=== PATIENT | male | born 1950 | race Caucasian/White ===

== ENCOUNTER 2019-09-14 11:36 | Outpatient (CLI) | payer MEDICARE, SELFPAY ==
--- NOTE | ~2019-09-14 | XR_ITS ---
EXAMINATION: XR hand RT 2V INDICATION: Right hand pain, initial encounter TECHNIQUE: Two views of the right hand are obtained. COMPARISON: None available FINDINGS: There is an acute, traumatic tuft fracture of the third distal phalanx. Open fracture is no t excluded. Soft tissue swelling surrounds the fracture. No additional acute osseous findings are mely dent. 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 IMPRESSION: 1. Acute traumatic tuft fracture third distal phalanx, open fracture not excluded. Reviewed, dictated and finalized at location B. IMPRESSION: 1. Acute traumatic tuft fracture third distal phalanx, open fracture not exclud ed.
== END 2019-09-14 11:37 | disposition home or self-care (01) ==
LOC: ANHIMG 11:41
PROVIDERS: PCP Internal Medicine; Visit Provider Internal Medicine
DX: S62.632A Displaced fracture of distal phalanx of right middle finger, initial encounter for closed fracture (principal); X58.XXXA Exposure to other specified factors, initial encounter
CPT/HCPCS: 73120

== ENCOUNTER 2021-06-01 15:30 | Outpatient (CLI) | payer MEDICARE, SELFPAY ==
--- NOTE | ~2021-06-01 | CT_ITS ---
EXAMINATION: CT abdomen pelvis wo con DATE: 06/01/2021 15:54 INDICATION: Unspecified abdominal pain TECHNIQUE: Computed tomography (CT) of the abdomen and pelvis was performed without intravenous contr ast. The dose-length product (DLP) was 1260.44 mGy-cm. Automated exposure control and iterative recon struction technique were employed. COMPARISON: 12/05/2009 FINDINGS: Minimal dependent atelectasis is present in the lung bases. The heart size is normal. Punct ate calcifications in an otherwise normal spleen likely represent healed granulomatous disease. The l iver, pancreas, gallbladder, and adrenal glands are normal. The kidneys are unremarkable. There is a 3 mm stone in the urinary bladder. There is suggestion of mild left hydroureter. No pathologically en larged abdominal or pelvic lymph nodes are identified. There is no free intraperitoneal gas or eviden ce of bowel obstruction. Colonic diverticulosis is present without evidence of diverticulitis. There is severe lumbar spondylosis. There is a small fat-containing umbilical hernia. IMPRESSION: 1. 3 mm stone in the urinary bladder and possible mild left hydroureter. Findings could reflect recen t passage of a left-sided stone. Reviewed, dictated and finalized at location F. E PERSON IMPRESSION: 1. 3 mm stone in the urinary bladder and possible mild left hydroureter. Findin gs could reflect recent passage of a left-sided stone.
[2021-06-01 16:23] LABS: Basophils Percent Auto 0.4 % (0.2-1.2); Eosinophils Absolute Auto 0.1 K/mm3 (0-0.3); Eosinophils Percent Auto 0.8 % (0-4.4); Hematocrit 47.4 % (42.0-52.0); Hemoglobin 16.3 g/dL (14.0-18.0); Immature Granulocyte Absolute 0.04 K/mm3 (0.00-0.031); Immature Granulocyte Percent A 0.4 % (0-0.5); Lymphocytes Absolute Auto 1.92 K/mm3 (0.9-3.2); Lymphocytes Percent Auto 19.7 % (18.3-44.2); Mean Corpuscular HGB Conc 34.4 g/dl (32-36); Mean Corpuscular Hemoglobin 32.1 pg (26-34); Mean Corpuscular Volume 93.5 fl (80-100); Mean Platelet Volume 9.2 fl (7.4-10.4); Monocytes Percent Auto 9.8 % (2.6-8.5); Neutrophils Absolute Auto 6.7 K/mm3 (1.3-6.7); Neutrophils Percent Auto 68.9 % (45.5-73.1); Platelet Count Result 197 k/mm3 (150-375); Red Blood Count 5.07 M/mm3 (4.6-6.20); Red Cell Distribution Width 12.6 % (11.5-14.5); White Blood Count 9.8 K/mm3 (4.5-10.0)
[2021-06-01 16:33] LABS: Alanine Aminotransferase 26 U/L (4-50); Albumin Level 4.2 g/dL (3.5-5.1); Alkaline Phosphatase 63 U/L (38-126); Amylase 60 U/L (30-110); Anion Gap 7 mmol/L (8-16); Aspartate Amino Transferase 27 U/L (17-59); Bilirubin,Total 1.6 mg/dL (0.2-1.3); Blood Urea Nitrogen 19 mg/dL (9-20); Calcium 9.4 mg/dL (8.4-10.2); Carbon Dioxide 28 mmol/L (22-30); Chloride 103 mmol/L (98-107); Estimated Glomerular Filt Rate 46; Glucose 100 mg/dL (65-110); Lipase 106 U/L (23-300); Sodium 138 mmol/L (137-145)
[2021-06-01 16:38] LABS: Add Urine Microscopic? YES; Appearance Urine Clear (Clear); Bilirubin Urine Negative (Negative); Blood Urine 2+ (Negative); Color Urine Yellow (Yellow); Glucose Urine UA Negative (Negative); Ketones Urine Negative (Negative); Leukocyte Esterase Ur Negative LEU/UL (Negative); Mucus Urine Rare /lpf; Nitrate Urine Negative (Negative); Protein Urine Negative (Negative); RBC Urine 21-50 /hpf (0-2); Specific Grav Ur 1.013 (1.001-1.035); Urobilinogen Urine Negative mg/dL (<2.0); WBC Urine 0-3 /hpf
== END 2021-06-01 15:31 | disposition home or self-care (01) ==
LOC: ANHIMG 15:34
PROVIDERS: PCP Internal Medicine; Visit Provider Internal Medicine
DX: R10.9 Unspecified abdominal pain (principal); R03.0 Elevated blood-pressure reading, without diagnosis of hypertension; N21.0 Calculus in bladder
CPT/HCPCS: 36415; 74176; 80053; 81001; 82150; 83690; 85025; 87086

== ENCOUNTER 2021-07-29 13:35 | Outpatient (CLI) | payer MEDICARE, SELFPAY ==
[2021-07-29 14:18] LABS: Basophils Absolute Auto 0.1 K/mm3 (0.0-0.1); Basophils Percent Auto 0.7 % (0.2-1.2); Eosinophils Absolute Auto 0.1 K/mm3 (0-0.3); Eosinophils Percent Auto 1.4 % (0-4.4); Hematocrit 47.1 % (42.0-52.0); Hemoglobin 16.5 g/dL (14.0-18.0); Immature Granulocyte Absolute 0.02 K/mm3 (0.00-0.031); Immature Granulocyte Percent A 0.3 % (0-0.5); Lymphocytes Absolute Auto 1.95 K/mm3 (0.9-3.2); Lymphocytes Percent Auto 28.3 % (18.3-44.2); Mean Corpuscular Hemoglobin 32.4 pg (26-34); Mean Corpuscular Volume 92.4 fl (80-100); Mean Platelet Volume 9.8 fl (7.4-10.4); Monocytes Percent Auto 14.8 % (2.6-8.5); Neutrophils Absolute Auto 3.8 K/mm3 (1.3-6.7); Neutrophils Percent Auto 54.5 % (45.5-73.1); Platelet Count Result 208 k/mm3 (150-375); Red Cell Distribution Width 12.6 % (11.5-14.5); White Blood Count 6.9 K/mm3 (4.5-10.0)
[2021-07-29 14:32] LABS: Alanine Aminotransferase 27 U/L (4-50); Albumin Level 4.2 g/dL (3.5-5.1); Alkaline Phosphatase 68 U/L (38-126); Anion Gap 9 mmol/L (8-16); Aspartate Amino Transferase 34 U/L (17-59); Bilirubin,Total 1.4 mg/dL (0.2-1.3); Blood Urea Nitrogen 25 mg/dL (9-20); Calcium 8.7 mg/dL (8.4-10.2); Carbon Dioxide 26 mmol/L (22-30); Chloride 106 mmol/L (98-107); Estimated Glomerular Filt Rate 54; Glucose 125 mg/dL (65-110); Sodium 141 mmol/L (137-145)
[2021-07-29 15:55] LABS: Toxigenic C. Diff NEGATIVE (NEGATIVE)
== END 2021-07-29 13:36 | disposition home or self-care (01) ==
LOC: ANHLAB 13:37
PROVIDERS: PCP Internal Medicine; Visit Provider Internal Medicine
DX: R19.7 Diarrhea, unspecified (principal)
CPT/HCPCS: 36415; 80053; 85025; 87045; 87177; 87209; 87427; 87493; 89055

== ENCOUNTER 2021-09-03 00:22 | Day surgery (SDC) | payer MEDICARE, SELFPAY ==
[2021-08-20 14:38] VITALS: BMI 33.0
--- NOTE | 2021-09-03 08:57 | WPDGICN ---
Assessment and Plan Assessment and plan (1) Colon cancer screening: Code(s): Z12.11 - Encounter for screening for malignant neoplasm of colon Status: Acute Assessment and Plan: Patient presents today for screening colonoscopy. Has been 10 years since last exam. Patient appears to be at average risk for colon polyps. Further recommendations will be given after endoscopy. High-fiber diet is advised. GI Consult Note Consult date/time: 09/03/21 08:57 HPI: Oleg Tay is a 70 year old male Presents for screening colonoscopy. Patient states his weight appetite are normal. He has had some regular bowel movements since his in April. These have begun to improve with fiber in his diet and with passage of time. He denies any bleeding. He has had no weight loss. It has been 10 years since last screening colonoscopy presents today for neoplasia screening. Review of Systems Review of Systems: All systems reviewed & are unremarkable except as noted in HPI and below PMFSH Past Medical History Medical History Benign essential hypertension BMI 31.0-31.9,adult BMI 32.0-32.9,adult BMI 33.0-33.9,adult Cold sore Colon cancer screening Degenerative arthritis of knee, bilateral DJD (degenerative joint disease) Encounter for Medicare annual wellness exam Encounter for routine adult health examination without abnormal findings Finger injury GERD (gastroesophageal reflux disease) Hearing loss Insomnia Kidney stone Left flank pain Loose stools Non-healing skin lesion Pre-diabetes Psoriasis Skin tag Stricture of esophagus Vision changes Surgical History Surgical History Hx of arthroscopic knee surgery Hx of detached retina repair Family History Family History Father Family history of congestive heart failure Family history of cardiovascular disease Family history of heart disease in male family member before age 55 Social History Social History Smoking status: Never smoker Second hand tobacco smoke exposure: No Alcohol intake: current Alcohol use details: Occasional Living arrangements: with family Gender identity (if verbalized by the patient): Male Spiritual care concerns: No Meds Home Medications and Allergies Home Medications Medication Instructions Recorded Confirmed Type vitamin K2 40 mcg tablet 40 mcg PO DAILY 06/27/19 08/26/21 History semaglutide 0.5 mg SUBCUT WEEKLY #4.5 ml 03/16/21 08/26/21 Rx omeprazole 20 mg capsule,delayed 20 mg PO BID #270 cap 06/30/21 08/26/21 Rx release amlodipine-valsartan 1 tablet PO DAILY 08/20/21 08/26/21 History naproxen 500 mg PO BID PRN 08/20/21 08/26/21 History pravastatin 40 mg PO DAILY 08/20/21 08/26/21 History sildenafil 100 mg tablet See Rx Instructions .ROUTE 08/25/21 08/26/21 Rx .COMPLEX #18 tablet Allergies Allergy/AdvReac Type Severity Reaction Status Date / Time No Known Allergies Allergy Verified 08/24/21 15:11 Exam Narrative: Physical exam reveals patient to be alert. Vital signs stable. HEENT exam is unremarkable. Patient is anicteric. Lungs are clear to auscultation and percussion. Heart is without murmur or extra sounds. Abdominal exam bowel sounds are present soft nontender with no organomegaly. Digital external rectal exam is normal.
[2021-09-03 09:01] VITALS: BP 127/95; PULSE 89; RESP 20; TEMP 36.4; O2SAT 96
[2021-09-03] MEDS: LACTATED RINGERS 1,000 ML 150 ML IV CONT (09:17)
--- NOTE | 2021-09-03 09:30 | WPDANESEPPF ---
Anes - Initial Pre Proc Eval Procedure: Operation Date: 09/03/21 10:15 Proposed Procedures p Colonoscopy - Walker Rico MD Date/Time: 09/03/21 09:30 Surgeon: Walker Rico MD Pre Op Diagnosis: change in bowel habits, loose stools Patient Data Age: 70 Gender: M Height: 1.93 m Weight: 123 kg Last Vital Signs Temp 97.6 F 09/03/21 09:01 Pulse 89 09/03/21 09:01 Resp 20 09/03/21 09:01 BP 127/95 H 09/03/21 09:01 Pulse Ox 96 09/03/21 09:01 Allergies Allergy/AdvReac Type Severity Reaction Status Date / Time No Known Allergies Allergy Verified 08/24/21 15:11 Home Medications Medication Instructions Recorded Confirmed Type vitamin K2 40 mcg tablet 40 mcg PO DAILY 06/27/19 08/26/21 History semaglutide 0.5 mg SUBCUT WEEKLY #4.5 ml 03/16/21 08/26/21 Rx omeprazole 20 mg capsule,delayed 20 mg PO BID #270 cap 06/30/21 08/26/21 Rx release amlodipine-valsartan 1 tablet PO DAILY 08/20/21 08/26/21 History naproxen 500 mg PO BID PRN 08/20/21 08/26/21 History pravastatin 40 mg PO DAILY 08/20/21 08/26/21 History sildenafil 100 mg tablet See Rx Instructions .ROUTE 08/25/21 08/26/21 Rx .COMPLEX #18 tablet Patient hx anesthesia problems: none Family hx anesthesia problems: none Results Review: All pre-operative results and documents have been reviewed as part of the pre-operative evaluation. [facility] Past Medical History Medical History Benign essential hypertension BMI 31.0-31.9,adult BMI 32.0-32.9,adult BMI 33.0-33.9,adult Cold sore Colon cancer screening Degenerative arthritis of knee, bilateral DJD (degenerative joint disease) Encounter for Medicare annual wellness exam Encounter for routine adult health examination without abnormal findings Finger injury GERD (gastroesophageal reflux disease) Hearing loss Insomnia Kidney stone Left flank pain Loose stools Non-healing skin lesion Pre-diabetes Psoriasis Skin tag Stricture of esophagus Vision changes Surgical History Surgical History Hx of arthroscopic knee surgery Hx of detached retina repair Family History Family History Father Family history of congestive heart failure Family history of cardiovascular disease Family history of heart disease in male family member before age 55 Social History Social History Smoking status: Never smoker Second hand tobacco smoke exposure: No Alcohol intake: current Alcohol use details: Occasional Living arrangements: with family Gender identity (if verbalized by the patient): Male Spiritual care concerns: No Anes - Eval Final PreProcedure Day of Procedure 09/03/21 09:30 Patient weight: obese Heart: regular rate and rhythm Lungs: clear to auscultation Airway: Mallampati scale class II Neurological: alert and oriented Last oral intake: >/= 8 hours ASA classification: III Emergent: no Anesthetic plan: proceed Anesthesia type and monitoring: general GIVS and standard monitoring Results Review: All pre-operative results and documents have been reviewed as part of the pre-operative evaluation. Informed Consent: The patient's anesthetic plan and its attendant risks and benefits were discussed with the patient/family/POA. Questions were solicited and answers provided to the satisfaction of the patient/family/POA.
[2021-09-03 10:34] VITALS: BP 114/73; PULSE 78; RESP 18; O2SAT 92
[2021-09-03 10:44] VITALS: BP 106/72; PULSE 79; RESP 18; O2SAT 95
[2021-09-03 10:54] VITALS: BP 110/81; PULSE 81; RESP 22; O2SAT 95
== END 2021-09-03 11:24 | disposition home or self-care (01) ==
PROVIDERS: PCP Internal Medicine; Visit Provider Internal Medicine Gastroenterology
PROC: 0DJD8ZZ Inspection of Lower Intestinal Tract, Via Natural or Artificial Opening Endoscopic (ICD-10-PCS; CPT 45378; principal; 2021-09-03 10:15)
DX: Z12.11 Encounter for screening for malignant neoplasm of colon (principal); K64.8 Other hemorrhoids; K57.30 Diverticulosis of large intestine without perforation or abscess without bleeding; I10 Essential (primary) hypertension; K21.9 Gastro-esophageal reflux disease without esophagitis; R73.03 Prediabetes; L40.9 Psoriasis, unspecified; E66.9 Obesity, unspecified; Z68.33 Body mass index [BMI] 33.0-33.9, adult
CPT/HCPCS: G0121; J2704; J7120

== ENCOUNTER 2022-05-12 07:26 | Outpatient (CLI) | payer MEDICARE, SELFPAY ==
--- NOTE | ~2022-05-12 | XR_ITS ---
EXAMINATION: XR UGIAC w barium swallow DATE: 05/12/2022 08:11 INDICATION: Dysphagia. Unspecified acid reflux at night. TECHNIQUE: The patient drank thick barium, gas-producing crystals, and thin barium. A total of 1031 f luoroscopic images of the esophagus, stomach, and proximal small bowel were obtained. Fluoroscopy exp osure time was 2.1 minutes. COMPARISON: None. FINDINGS: The esophagus is normal without mass or stricture. Esophageal motility is normal. Very smal l sliding-type hiatal hernia with nonobstructing esophageal B ring at the gastroesophageal junction w hich lies approximately 3 cm above level of the diaphragm. There is also a transient esophageal a rin g at the cephalad margin of the esophageal vestibule. There was no gastroesophageal reflux with provo cative maneuvers. The stomach and proximal small bowel are normal. IMPRESSION: 1. Very small sliding-type hiatal hernia with no observed reflux with provocative maneuvers. Reviewed, dictated and finalized at location A. IC SPACE ATTENDANT IMPRESSION: 1. Very small sliding-type hiatal hernia with no observed reflux with provocati ve maneuvers.
== END 2022-05-12 07:27 | disposition home or self-care (01) ==
PROVIDERS: PCP Internal Medicine; Visit Provider Internal Medicine
DX: R13.10 Dysphagia, unspecified (principal); K21.9 Gastro-esophageal reflux disease without esophagitis; K44.9 Diaphragmatic hernia without obstruction or gangrene
CPT/HCPCS: 74246

== ENCOUNTER 2022-07-19 08:01 | Outpatient (CLI) | payer MEDICARE, SELFPAY ==
--- NOTE | 2022-07-19 08:49 | ECG_ITS ---
Measurements Intervals [place] Rate: 73 P: 9 WA: 170 QRS: -38 QRSD: 106 T: 43 QT: 399 QTc: 440 Interpretive Statements SINUS RHYTHM WITH OCCASIONAL VENTRICULAR PREMATURE COMPLEXES LEFT ANTERIOR HEMIBLOCK NONSPECIFIC T-WAVE ABNORMALITY ABNORMAL ECG NO PREVIOUS ECG AVAILABLE FOR COMPARISON Electronically Signed On 07-19-2022 12:12:35 LOG BUNCHER by Cody Choudhary M.D.
[2022-07-19 10:07] LABS: Basophils Absolute Auto 0.1 K/mm3 (0.0-0.1); Basophils Percent Auto 0.8 % (0.2-1.2); Eosinophils Absolute Auto 0.3 K/mm3 (0-0.3); Eosinophils Percent Auto 4.2 % (0-4.4); Hemoglobin 15.8 g/dL (14.0-18.0); Immature Granulocyte Absolute 0.02 K/mm3 (0.00-0.031); Immature Granulocyte Percent A 0.3 % (0-0.5); Lymphocytes Absolute Auto 2.12 K/mm3 (0.9-3.2); Lymphocytes Percent Auto 34.5 % (18.3-44.2); Mean Corpuscular HGB Conc 34.3 g/dl (32-36); Mean Corpuscular Hemoglobin 31.7 pg (26-34); Mean Corpuscular Volume 92.4 fl (80-100); Mean Platelet Volume 10.5 fl (7.4-10.4); Monocytes Absolute Auto 0.8 K/mm3 (0.1-0.6); Monocytes Percent Auto 12.2 % (2.6-8.5); Platelet Count Result 182 k/mm3 (150-375); Red Blood Count 4.98 M/mm3 (4.6-6.20); Red Cell Distribution Width 13.3 % (11.5-14.5); White Blood Count 6.2 K/mm3 (4.5-10.0)
[2022-07-19 10:14] LABS: Albumin Level 4.4 g/dL (3.5-5.1)
[2022-07-19 10:18] LABS: Anion Gap 5 mmol/L (8-16); Blood Urea Nitrogen 22 mg/dL (9-20); Calcium 8.6 mg/dL (8.4-10.2); Carbon Dioxide 29 mmol/L (22-30); Chloride 102 mmol/L (98-107); Estimated Glomerular Filt Rate 54; Glucose 100 mg/dL (65-110); Hemoglobin A1C 5.5 % (<5.7); Potassium 3.9 mmol/L (3.4-5.0); Sodium 136 mmol/L (137-145); Urine Cotinine NEGATIVE
== END 2022-07-19 08:02 | disposition home or self-care (01) ==
LOC: ANHSURGERY 08:06
PROVIDERS: Anesthesiology; PCP Internal Medicine; Visit Provider Orthopaedic Surgery
DX: Z01.812 Encounter for preprocedural laboratory examination (principal); Z01.810 Encounter for preprocedural cardiovascular examination; M17.0 Bilateral primary osteoarthritis of knee; E11.9 Type 2 diabetes mellitus without complications; I44.4 Left anterior fascicular block
CPT/HCPCS: 80048; 80307; 82040; 83036; 85025; 87081; 93005

== ENCOUNTER 2022-08-02 00:42 | Day surgery (SDC) | payer MEDICARE, SELFPAY ==
--- NOTE | 2022-07-19 07:34 | PC.NURSE ---
PRE-OP INSTRUCTIONS, PLEASE READ CAREFULLY Report to the Outpatient Waiting Room, entrance under the green pavilion located off [facility], at time _0600_ on date _08/02/22_. Planned Procedure Time: _0730_. PACK A SMALL OVERNIGHT BAG AND LEAVE IN THE CAR ALONG WITH YOUR WALKER Time changes happen often and if your time is changed the preop area will call you the afternoon before. - You and your visitor will be asked to self-screen and do not enter if you have any COVID symptoms. - Only one visitor is requested with a max of two and NO children visitors are allowed at this time. - The patient visitor may be requested to leave or wait in car when not with patient due to distancing restrictions. - A mask is optional within the hospital at this time. -VISITING HOURS 8AM-8PM Patients may have clear liquids (water, carbonated beverages, clear teas, apple juice) until 3 hours prior to surgery (0430 AM) with a maximum of 20 ounces. - No food from midnight until time of surgery Take the following medications with a SIP of water the morning of surgery: _NONE_ DO NOT STOP ANY OF YOUR OTHER PRESCRIPTION MEDICATIONS PRIOR TO SURGERY ?EXCEPT THE FOLLOWING Medications to discontinue __NAPROXEN PER DR. GONZALEZ'S INSTRUCTIONS__ Medications to discontinue per ANESTHESIA -_TUMERIC 3 DAYS PRIOR TO SURGERY, Date to take last dose 07/29/22_ Please no deodorant, or body powder the day of surgery. No jewelry (including any body piercings) or valuables the day of surgery, leave them at home. Please take a shower or bath the night before, or the morning of, surgery with an antibacterial soap. Wear comfortable, loose fitting clothing. - Jewelry must be removed prior to entering the operating room. Rings and piercings that are not removed may be cut off. - The hospital will not accept responsibility for valuables. - Please leave all valuables, including medications, at home the day of surgery. If you are going home after surgery, a licensed farm truck driver must drive you home. - NO public transportation without another adult if you receive anesthesia. - We recommend that an adult stay with you for 24 hours following discharge. - We also recommend that you do not drive, make important decision, drink alcoholic beverages, or take any drugs that were not prescribed by your health care provider for at least 24 hours after your discharge time. Follow any additional instructions given to you from your surgeon. If you or anyone in your household have experienced Covid symptoms in the past week, please notify your surgeon or the nurse liaison at the phone number below for possible testing. Instructions given to _PATIENT_and asked if any additional questions and then verbalized understanding. Patient advised to call surgeon office or pre surgery nurse liaison [phone] if any additional questions.
[2022-07-19 08:26] VITALS: BP 130/88; PULSE 72; RESP 20; TEMP 36.4; O2SAT 94; BMI 32.3
[2022-08-02] VITALS (17 sets, daily range): BP systolic 120–144; BP diastolic 69–92; PULSE 71–99; RESP 12–20; TEMP 36.1–36.6; O2SAT 90–98
--- NOTE | ~2022-08-02 | XR_ITS ---
EXAMINATION: XR_[id number]_CR DATE: 08/02/2022 10:33 INDICATION: Total left knee arthroplasty. Postop. TECHNIQUE: 2 views of left knee were obtained. COMPARISON: Left knee radiograph 11/11/2021 FINDINGS: There is a total left knee arthroplasty with patellar resurfacing in near-anatomic alignmen t. No fracture. There is gas in the knee joint and soft tissues, consistent with recent surgery. IMPRESSION: 1. Total left knee arthroplasty in near-anatomic alignment. Reviewed, dictated and finalized at location [facility]. [facility]
[2022-08-02] MEDS: ACETAMINOPHEN 500 MG TABLET 1000 MG PO (06:33)
[2022-08-02] MEDS: LACTATED RINGERS 1,000 ML 30 ML IV CONT ×2 (06:50→10:07)
[2022-08-02 06:51] LABS: Glucose Point of Care 115 mg/dl (65-105)
[2022-08-02] MEDS: TRANEXAMIC ACID 1,000MG/ISO100 1,000 MG/100 ML BAG 200 MG IVPB (06:54)
--- NOTE | 2022-08-02 07:14 | WPDHPUPDATE1 ---
History and Physical Update Update Date/Time: 08/02/22 07:14 History and Physical has been reviewed, including an updated exam of the patient. There are NO changes in the patient's condition. Risks, benefits, and alternatives have been discussed and questions answered. Patient agrees to proceed with procedure, left total knee arthroplasty and right knee injection..
--- NOTE | 2022-08-02 07:22 | WPDANESEPPF ---
Anes - Initial Pre Proc Eval Procedure: Operation Date: 08/02/22 07:30 Proposed Procedures p Left Total Knee Arthroplasty, Cortisone Injection Right Knee - Nelson Eisenberg MD Date/Time: 08/02/22 07:22 Surgeon: Nelson Eisenberg MD Pre Op Diagnosis: oa bilateral knees Patient Data Age: 71 Gender: M Height: 1.93 m Weight: 122.7 kg Last Vital Signs Temp 36.3 C L 08/02/22 06:58 Pulse 84 08/02/22 06:58 Resp 18 08/02/22 06:58 BP 142/92 H 08/02/22 06:58 Pulse Ox 94 08/02/22 06:58 O2 Del Method Room Air 08/02/22 06:58 Allergies Allergy/AdvReac Type Severity Reaction Status Date / Time No Known Allergies Allergy Verified 08/02/22 06:30 Home Medications Medication Instructions Recorded Confirmed Type tumeric 100 mg-julia 150 mg-olive 1 cap PO DAILY 12/24/21 08/02/22 History 50 mg-oreg 150 mg-caprylate capsule amlodipine 10 mg-valsartan 160 mg See Rx Instructions .Route 03/08/22 08/02/22 Rx tablet .COMPLEX #90 tabs pravastatin 40 mg tablet See Rx Instructions .Route 03/08/22 08/02/22 Rx .COMPLEX #90 tabs omeprazole 40 mg capsule,delayed 40 mg PO BID #180 caps 04/16/22 08/02/22 Rx release naproxen 500 mg tablet See Rx Instructions .Route 06/14/22 08/02/22 Rx .COMPLEX #60 tabs zolpidem 10 mg tablet 10 mg PO QHS #30 tabs 07/12/22 08/02/22 Rx semaglutide 0.25 mg or 0.5 mg (2 See Rx Instructions .Route 07/19/22 08/02/22 Rx mg/1.5 mL) subcutaneous pen .COMPLEX #4.5 mL injector (Ozempic) rivaroxaban 10 mg tablet (Xarelto) 10 mg PO DAILY PE prophylaxis s/p 07/27/22 07/27/22 Rx joint replacement surgery 14 days #14 tabs Laboratory Tests 08/02/22 06:48 POC Capillary Glucose 115 mg/dl H mg/dl (65-105) Patient hx anesthesia problems: none Family hx anesthesia problems: none Results Review: All pre-operative results and documents have been reviewed as part of the pre-operative evaluation. [facility] Past Medical History Medical History Benign essential hypertension Bilateral hand numbness BMI 31.0-31.9,adult BMI 32.0-32.9,adult BMI 33.0-33.9,adult Cold sore Colon cancer screening DJD (degenerative joint disease) VALLE (dyspnea on exertion) Encounter for Medicare annual wellness exam Finger injury Gastroenteritis GERD (gastroesophageal reflux disease) Hearing loss Insomnia Kidney stone Left flank pain Loose stools Non-healing skin lesion Personal history of COVID-19 Pre-diabetes Psoriasis Skin tag Stricture of esophagus Vision changes Surgical History Surgical History Hx of arthroscopic knee surgery Hx of detached retina repair Family History Family History Father Family history of congestive heart failure Family history of cardiovascular disease Family history of heart disease in male family member before age 55 Social History Social History Smoking status: Never smoker Second hand tobacco smoke exposure: No Additional smoking assessment comments: PT DENIES ALL FORMS OF TOBACCO USE Alcohol intake: current Alcohol use details: STATES 2-4 BEERS/WEEK Substance use: never Lack of Transportation: No Lack of Food: Never True Current Housing: I Have Housing Concerned About Future Housing: No Difficulty Paying Gas/Electric Bills: No Difficulty Paying for Meds: No Currently Unemployed: No Education: Bachelor's Degree Difficulty w/ Childcare or Family Care: No Living arrangements: alone Occupation/Education: retired Gender identity (if verbalized by the patient): Male Spiritual care concerns: No Anes - Eval Final PreProcedure Day of Procedure 08/02/22 07:22 Patient weight: obese Heart: regular rate and rhythm Lungs: clear to auscultation Airway: Mallampati s
[2022-08-02] MEDS: ceFAZolin 3 GM/D5W 100 ML 100 ML IVPB (07:38)
--- NOTE | 2022-08-02 07:38 | WPDANESPNB ---
Anes - Peripheral Nerve Block Date/Time: 08/02/22 07:38 I have discussed with the patient/family/POA the placement of a peripheral nerve block for post-operative pain management, including associated risks, benefits, complications, and side effects. Alternative methods of post-operative analgesia were detailed. Questions were solicited and answers provided to the satisfaction of the patient/family/POA. Time-Out: A pre-procedural Time-Out was completed immediately before starting the procedure and confirmed: Patient Identification, Site, Procedure, Patient Position and the Availability of Requisite Equipment. Clinical Indications: Acute post-operative pain management requested by the operative surgeon. Nerve Block Insertion Note Anes-nerve block: adductor canal left Patient position: supine Skin prep: chlorhexidine Needle: 22 gauge, stimulating, insulated echogenic needle. Needle length: 80 mm Technique: ultrasound Technique comment: mid 2mg fent 100mcg Injectate: bupivacaine 0.5% with epi 5 mcg/ml (30ml no epi) and dexamethasone (mg) (4) Observations: tolerated well Complications: none Procedure start time:: 725 Procedure end time:: 732
[2022-08-02] MEDS: TRIAMCINOLONE ACET INJ SUSP 50 MG/5 ML VIAL 20 MG XX (08:21)
[2022-08-02] MEDS: ceFAZolin SODIUM 1 GM VIAL IV PUSH (09:25)
--- NOTE | 2022-08-02 09:57 | W.PM.PROC2 ---
Procedure Note - Detailed Date of Procedure 08/02/22 Pre-op Diagnosis oa bilateral knees Post-op Diagnosis Same Procedure Performed 1. left total knee replacement 2. Right knee injection Surgeon Nelson Eisenberg MD [employer]iliate Marketing Specialist Max Torres Anesthesia General Description of Procedure The patient was identified and proper site identified. In the preop holding area the anesthesia team performed a left-sided sub sartorial block after which the patient was taken to the operating room and transferred to the OR table positioning supine taking care to pad the torso and extremities. After general anesthetic induction and intubation a nonsterile tourniquet was placed high on the left thigh. Prior to prepping the right knee was injected with 2 milliliters of 1% lidocaine and 20 milligrams of Kenalog without incident. Band-Aid was applied. The left lower extremity was prepped and draped in the usual sterile fashion. The extremity was exsanguinated and with the knee flexed tourniquet was inflated to Three hundred mmHg remaining up for approximately 70 minutes. An anterior midline incision was made and a mid vastus approach was used. Infra and suprapatellar fat pads were excised. Patella was resected leaving 15 mm thickness and prepared for the size 34 round three peg component. Using the intramedullary guide the distal femur was cut in the proper orientation for the size 75 femoral component. Using the extramedullary guide the tibia was cut perpendicular to the long axis protecting collateral ligaments and popliteal structures. It was sized to a 83. Flexion and extension gaps were balanced. Trial reduction was undertaken and the weight-bearing line was noted to passed through the center of the joint. Proximal tibia was drilled and punched in the proper orientation for the real component. Trial components were removed. The bone surfaces were washed with pulsatile lavage and dried. The real components were cemented simultaneously. The knee was held in extension and the patella held clamped until the cement had cured. Excess cement was removed from the joint. After trialing it was determined that the 12 mm insert gave full range of motion from 0-120 degrees of flexion and the patella tracked in the femoral groove with no lift-off. After final lavage the joint the real 12 E poly insert was placed and secured with a locking bar. A Betadine and saline wash was placed into the wound and allowed to sit for approximately 3 minutes and then evacuated. Periarticular tissues were infiltrated with 60 cc of the arthroplasty solution. Surgicel powder was applied into the wound during the closure. The extensor mechanism was repaired with #2 Vicryl suture and 0 looped PDS suture. Subcu was reapproximated with 3-0 Monocryl and 2-0 Stratafix with tissue adhesive for the skin. A sterile dressing was applied. He tolerated the procedure well, was awakened and extubated, transferred to the bed and was taken to recovery area in stable condition. There were no known intraoperative complications. Perioperative antibiotics were administered. Estimated Blood Loss 150 Tourniquet Time 70 Drains No Packing No Pathology None sent Complications No immediate complications Condition Stable Disposition PACU [facility] Billing Surgery - Charge Forward: Surgery Billing (03904 - L TKA; 78440 - R knee injection)
[2022-08-02 10:37] LABS: Glucose Point of Care 154 mg/dl (65-105)
[2022-08-02] MEDS: fentaNYL CITRATE INJ (*CRX) 100 MCG/2 ML VIAL 25 MCG IV PUSH ×4 (10:48→11:36)
--- NOTE | 2022-08-02 10:57 | SUR.PHASEI ---
1055: Simple mask removed.
[2022-08-02] MEDS: oxyCODONE/ACETAMINOPHEN (*CRX) 5-325 MG TABLET 1 TABLET PO ×3 (12:25→20:21)
[2022-08-02] MEDS: SODIUM CHLORIDE 0.9% IV 1,000 ML 125 ML IV CONT (12:26)
--- NOTE | 2022-08-02 15:14 | PM.IMCN ---
Assessment and Plan Assessment and plan (1) Status post right knee replacement: Code(s): Z96.651 - Presence of right artificial knee joint Status: Acute Assessment and Plan: POD 0 Ortho to manage post op care DVT per ortho Xareto Cefazolin given post op Pain medications on board Anti-emetics on board PT/OT Weight bearing status Full weight bearing (2) Primary osteoarthritis of both knees: Code(s): M17.0 - Bilateral primary osteoarthritis of knee Status: Chronic Assessment and Plan: Been getting injections Currently left knee replacements Right knee injection POD 0 PT/OT (3) Benign essential hypertension: Code(s): I10 - Essential (primary) hypertension Status: Acute Assessment and Plan: Current BP is 144/84 Continue home medications Trend BP Adjust therapy as indicated (4) Pre-diabetes: Code(s): R73.03 - Prediabetes Status: Acute Assessment and Plan: A1c 5.5 Glucose stable Accu-Checks AC/HS ISS Trend glucose Adjust therapy as indicated Plan Thank you for including us on this case please call with any questions 63 minutes HPI Data of Consult Consult date: 08/02/22 Requesting Physician: Nelson Eisenberg MD Primary Care Provider: Anshul Mason MD Consult Narrative Reason for consult: Medical management Narrative: Oleg Tay is a 71 year old male with a past medical history of hypertension, GERD, osteoarthritis who is a direct admit for status post bilateral knee replacements by Dr. Eisenberg. He did get injections and was participation in activity to help with the pain, and did not get any relief. Currently patient is POD 0 and is in the room resting comfortable. He denies any chest pain, shortness of breath, nausea, vomiting, diarrhea, constipation. He did state his pain is a 5-6/10. He denies any other complaints at the time being. He is currently on 2LNC. He did state that he felt just beat and tired, and wanted to get into bed. He did also state that he was able to walk to the bathroom and around the room without any problems. Hospitalist have been consulted for medical management PMFSH Past Medical History Medical History Benign essential hypertension Bilateral hand numbness BMI 31.0-31.9,adult BMI 32.0-32.9,adult BMI 33.0-33.9,adult Cold sore Colon cancer screening DJD (degenerative joint disease) VALLE (dyspnea on exertion) Encounter for Medicare annual wellness exam Finger injury Gastroenteritis GERD (gastroesophageal reflux disease) Hearing loss Insomnia Kidney stone Left flank pain Loose stools Non-healing skin lesion Personal history of COVID-19 Pre-diabetes Psoriasis Skin tag Stricture of esophagus Vision changes Surgical History Surgical History Hx of arthroscopic knee surgery Hx of detached retina repair Family History Family History Father Family history of congestive heart failure Family history of cardiovascular disease Family history of heart disease in male family member before age 55 Social History Social History Social History: patient currently lives by himself. He elects his friend Mindy to be his surrogate. He wishes to be a full code at this time. Smoking status: Never smoker Second hand tobacco smoke exposure: No Alcohol intake: current Drinks per week: 2 Alcohol use details: STATES 2-4 BEERS/WEEK Substance use: never Lack of Transportation: No Lack of Food: Never True Current Housing: I Have Housing Concerned About Future Housing: No Difficulty Paying Gas/Electric Bills: No Difficulty Paying for Meds: No Currently Unemployed: No
[2022-08-02] MEDS: ceFAZolin 2 GM/D5W 50 ML 2 GM/50 ML BAG IVPB (16:41)
[2022-08-02] MEDS: CELECOXIB 200 MG CAPSULE PO (16:48)
[2022-08-02] MEDS: SENNA/DOCUSATE SODIUM TABLET 2 TAB PO (16:48)
[2022-08-02] MEDS: PANTOPRAZOLE 40 MG TABLET PO (20:21)
[2022-08-02] MEDS: ZOLPIDEM TARTRATE (*CRX) 5 MG TABLET 10 MG PO (20:21)
[2022-08-03] MEDS: oxyCODONE/ACETAMINOPHEN (*CRX) 5-325 MG TABLET 1 TABLET PO ×3 (00:15→09:45)
[2022-08-03] MEDS: ceFAZolin 2 GM/D5W 50 ML 2 GM/50 ML BAG IVPB ×2 (00:15→10:33)
[2022-08-03 02:46] VITALS: BP 143/75; PULSE 82; RESP 20; TEMP 36.6; O2SAT 92
[2022-08-03 05:56] LABS: Basophils Percent Auto 0.1 % (0.2-1.2); Hematocrit 40.3 % (42.0-52.0); Hemoglobin 13.5 g/dL (14.0-18.0); Immature Granulocyte Absolute 0.08 K/mm3 (0.00-0.031); Immature Granulocyte Percent A 0.5 % (0-0.5); Lymphocytes Absolute Auto 1.32 K/mm3 (0.9-3.2); Lymphocytes Percent Auto 8.5 % (18.3-44.2); Mean Corpuscular HGB Conc 33.5 g/dl (32-36); Mean Corpuscular Hemoglobin 30.9 pg (26-34); Mean Corpuscular Volume 92.2 fl (80-100); Mean Platelet Volume 9.6 fl (7.4-10.4); Monocytes Absolute Auto 1.4 K/mm3 (0.1-0.6); Monocytes Percent Auto 8.8 % (2.6-8.5); Neutrophils Absolute Auto 12.8 K/mm3 (1.3-6.7); Neutrophils Percent Auto 82.1 % (45.5-73.1); Platelet Count Result 200 k/mm3 (150-375); Red Blood Count 4.37 M/mm3 (4.6-6.20); Red Cell Distribution Width 13.4 % (11.5-14.5); White Blood Count 15.6 K/mm3 (4.5-10.0)
[2022-08-03 06:05] LABS: Anion Gap 5 mmol/L (8-16); Blood Urea Nitrogen 21 mg/dL (9-20); Calcium 8.6 mg/dL (8.4-10.2); Carbon Dioxide 27 mmol/L (22-30); Chloride 101 mmol/L (98-107); Estimated CRCL calculation 76 ml/min; Estimated Glomerular Filt Rate > 60; Glucose 116 mg/dL (65-110); Sodium 133 mmol/L (137-145)
--- NOTE | 2022-08-03 07:47 | PM.DS ---
DS: Admitting Diagnosis Discharge Date 08/03/2022 Admitting Diagnosis Left knee osteoarthritis DS: Discharge Diagnosis Discharge Diagnosis (1) Status post total left knee replacement: Code(s): Z96.652 - Presence of left artificial knee joint Status: Acute Plan 71-year-old male postop day 1 after left total knee replacement. Overall doing very well during exam this morning. Pain is well controlled. Postoperative wound care and medications were reviewed in detail. He had no further questions. Plan to see him in 2 weeks for wound check. He did state that he will stay with his girlfriend for 1 week for help with care. He will start outpatient therapy after that. DS: Summary Hospital Course Reason for hospitalization: Observation after outpatient procedure Hospital Course: 71-year-old male admitted for observation after left total knee replacement. Overall uneventful overnight stay. Surgical dressing is clean and dry. He is able to ambulate and work well with physical therapy. Postoperative discharge instructions were discussed with him in detail. He will plan on seeing therapy again prior to discharge. Status at Discharge Functional status at discharge: uses cane/walker Overall status at discharge: patient is progressing back to baseline Time Spent with Patient Time attestation: Total time spent providing and/or coordinating discharge services: Time spent: Less than 30 minutes Exam Const: General: comfortable; No no acute distress Eyes: General: appearance normal, both eyes and all related structures Resp: Effort & Inspection: normal respiratory effort GI: Inspection: non-distended Skin: General skin exam: normal color and no erythema Other: Surgical incision at left knee shows a clean and dry dressing. Neuro: Sensory Exam: normal sensation Extrem: Other: Exam of the left knee demonstrates active range of motion to near full extension. No numbness or tingling down the leg. Calves negative. Neurovascular status left lower extremity is intact. Psych: Mental Status: mental status grossly normal Radiology Reports: Comments: EXAMINATION: [id number]_[id number]_CR DATE: 08/02/2022 10:33 INDICATION: Total left knee arthroplasty. Postop. TECHNIQUE: 2 views of left knee were obtained. COMPARISON: Left knee radiograph 11/11/2021 FINDINGS: There is a total left knee arthroplasty with patellar resurfacing in near-anatomic alignment. No fracture. There is gas in the knee joint and soft tissues, consistent with recent surgery. IMPRESSION: 1. Total left knee arthroplasty in near-anatomic alignment. DS: Data Data Completed and Pending Labs on day of discharge: Labs from last 24 hours 08/03/22 08/03/22 08/02/22 05:33 05:33 10:34 WBC 15.6 H RBC 4.37 L Hgb 13.5 L Hct 40.3 L MCV 92.2 MCH 30.9 MCHC 33.5 RDW 13.4 Plt Count 200 MPV 9.6 Immature Gran % (Auto) 0.5 Neut % (Auto) 82.1 H Lymph % (Auto) 8.5 L [place] % (Auto) 8.8 H Eos % (Auto) 0.0 Baso % (Auto) 0.1 L Lymph # (Auto) 1.32 [place] # (Auto) 1.4 H Eos # (Auto) 0.0 Baso # (Auto) 0.0 Abs Immat Gran (auto) 0.08 H Absolute Neuts (auto) 12.8 H Absolute Nucleated RBC 0.0 Nucleated RBC % 0.0 Sodium 133 L Potassium 4.0 Chloride 101 Carbon Dioxide 27 Anion Gap 5 L BUN 21 H Creatinine 1.10 Estim Creat Clear Calc 76 Estimated GFR > 60 Glucose 116 H POC Capillary Glucose 154 H Calcium 8.6 Antibody Screen 08/02/22 06:28 WBC RBC Hgb Hct MCV MCH MCHC RDW Plt Count MPV Immature Gran % (Auto) Neut % (Auto) Lymph % (Auto) [place] % (Auto) Eos % (Auto) Baso % (Auto) Lymph # (Auto) [place] # (Auto) Eos # (Auto) Baso # (Auto) Abs Immat Gran (auto) Absolute Neuts (auto) Absolute Nucleated RBC Nucleated RBC % Sodium Potassium Chloride Carbon Dioxide Anion Gap BUN Creatinine Estim Creat C
--- NOTE | 2022-08-03 07:54 | P.PNAN_ITS ---
Anes - Prog Note Post-Op Date/Time: 08/03/22 07:54 Cardiovascular status: normal Respiratory status: normal Airway patency: baseline Mental status: baseline Post-Op hydration status: normal Vital Signs: Last Vital Signs Temp 97.9 F 08/03/22 02:46 Pulse 82 08/03/22 02:46 Resp 20 08/03/22 02:46 BP 143/75 H 08/03/22 02:46 Pulse Ox 92 08/03/22 02:46 O2 Del Method Nasal Cannula 08/02/22 20:00 O2 Flow Rate 1 08/02/22 20:00 Pain Score (VAS): 0/10 I/O: Intake & Output 08/02/22 08/02/22 08/03/22 15:59 23:59 07:59 Intake Total 350 290 440 Balance 350 290 440 Laboratory Tests 08/03/22 05:33 08/03/22 05:33 08/02/22 08/02/22 08/03/22 06:28 10:34 05:33 WBC 15.6 H RBC 4.37 L Hgb 13.5 L Hct 40.3 L MCV 92.2 MCH 30.9 MCHC 33.5 RDW 13.4 Plt Count 200 MPV 9.6 Immature Gran % (Auto) 0.5 Neut % (Auto) 82.1 H Lymph % (Auto) 8.5 L [place] % (Auto) 8.8 H Eos % (Auto) 0.0 Baso % (Auto) 0.1 L Lymph # (Auto) 1.32 [place] # (Auto) 1.4 H Eos # (Auto) 0.0 Baso # (Auto) 0.0 Abs Immat Gran (auto) 0.08 H Absolute Neuts (auto) 12.8 H Absolute Nucleated RBC 0.0 Nucleated RBC % 0.0 Sodium Potassium Chloride Carbon Dioxide Anion Gap BUN Creatinine Estim Creat Clear Calc Estimated GFR Glucose POC Capillary Glucose 154 H Calcium Antibody Screen Negative 08/03/22 05:33 WBC RBC Hgb Hct MCV MCH MCHC RDW Plt Count MPV Immature Gran % (Auto) Neut % (Auto) Lymph % (Auto) [place] % (Auto) Eos % (Auto) Baso % (Auto) Lymph # (Auto) [place]pie # (Auto) Eos # (Auto) Baso # (Auto) Abs Immat Gran (auto) Absolute Neuts (auto) Absolute Nucleated RBC Nucleated RBC % Sodium 133 L Potassium 4.0 Chloride 101 Carbon Dioxide 27 Anion Gap 5 L BUN 21 H Creatinine 1.10 Estim Creat Clear Calc 76 Estimated GFR > 60 Glucose 116 H POC Capillary Glucose Calcium 8.6 Antibody Screen Post-procedural complaints: none Patient Feedback: Patient satisfied with anesthetic care.
[2022-08-03] MEDS: CELECOXIB 200 MG CAPSULE PO (09:41)
[2022-08-03] MEDS: amLODIPine BESYLATE 5 MG TABLET 10 MG BY MOUTH (09:41)
[2022-08-03] MEDS: SENNA/DOCUSATE SODIUM TABLET 2 TAB PO (09:42)
[2022-08-03] MEDS: PANTOPRAZOLE 40 MG TABLET PO (09:43)
[2022-08-03] MEDS: RIVAROXABAN 10 MG TABLET PO (09:44)
[2022-08-03] MEDS: PRAVASTATIN SODIUM 20 MG TABLET 40 MG PO (09:45)
[2022-08-03] MEDS: VALSARTAN 160 MG TABLET PO (09:45)
[2022-08-03] MEDS: polyethylene glycoL 3350 17 GM POWD.PACK PO (09:46)
[2022-08-03 09:50] VITALS: O2SAT 94
[2022-08-03 11:20] VITALS: BP 150/87; PULSE 76; RESP 20; TEMP 36.9; O2SAT 89
--- NOTE | 2022-08-03 11:30 | PM.IMPN ---
Progress Note: A&P Assessment and Plan (1) Status post total left knee replacement: Code(s): Z96.652 - Presence of left artificial knee joint Status: Acute Assessment and Plan: POD 1 Ortho to manage post op care DVT per ortho Xareto Cefazolin given post op, completed Pain medications on board Anti-emetics on board PT/OT Weight bearing status Full weight bearing (2) Primary osteoarthritis of both knees: Code(s): M17.0 - Bilateral primary osteoarthritis of knee Status: Chronic Assessment and Plan: Been getting injections Currently left knee replacements Right knee injection POD 1 PT/OT (3) Benign essential hypertension: Code(s): I10 - Essential (primary) hypertension Status: Acute Assessment and Plan: Current BP is 143/75 Continue home medications Trend BP Adjust therapy as indicated (4) Pre-diabetes: Code(s): R73.03 - Prediabetes Status: Acute Assessment and Plan: Glucose is stable at 116 A1c 5.5 Glucose stable Accu-Checks AC/HS ISS Trend glucose Adjust therapy as indicated Time Spent With Patient Time: 51 minutes Time with patient: Greater than 35 minutes Subjective Date/time seen: 08/03/22 11:30 Interval history: 08/03/22 1130 Patient is doing well today. Patient did state that he does have a little bit of pain especially when he does the exercises. He currently denies any chest pain, shortness a breath, nausea, vomiting diarrhea. He did state the is a bowel movement for the last couple of days. He was on oxygen however has been titrated off current saturations are in the high 90s. Currently patient is doing well and can be discharged from medical standpoint. 08/02/22 1035 Oleg Tay is a 71 year old male with a past medical history of hypertension, GERD, osteoarthritis who is a direct admit for status post bilateral knee replacements by Dr. Eisenberg.? He did get injections and was participation in activity to help with the pain, and did not get any relief.? Currently patient is POD 0 and is in the room resting comfortable.? He denies any chest pain, shortness of breath, nausea, vomiting, diarrhea, constipation.? He did state his pain is a 5-6/10.? He denies any other complaints at the time being.? He is currently on 2LNC.? He did state that he felt just beat and tired, and wanted to get into bed.? He did also state that he was able to walk to the bathroom and around the room without any problems. Review of Systems Review of Systems: All systems reviewed & are unremarkable except as noted in HPI and below Exam Narrative: General: well-nourished, well-appearing 75-year-old female, sitting up in bed, comfortable, NARD Neuro: awake, alert and oriented x4, speech clear, no focal neuro deficits noted HEENMT: normocephalic, atraumatic, EOMI, sclerae anicteric, moist oral mucosa Respiratory: Clear to auscultation bilaterally without crackles, rhonchi or wheezes, nonlabored breathing Cardio: regular rate, regular rhythm with S1-S2 Abdomen: nondistended, normoactive bowel sounds, soft, nontender to palpation Extremities: no edema, erythema, or tenderness to palpation, DP pulses 2+ bilaterally, left knee has ice pack on, some swelling Skin: no rashes or lesions, warm and dry Psych: appropriate mood and affect, judgment and insight intact Objective Data Vital Signs Vital Signs: Vital Signs - 24 hr 08/02/22 10:07 08/02/22 10:20 08/02/22 10:35 Temperature 97.4 F L Pulse Rate 85 71 83 Respiratory Rate 12 16 14 Blood Pressure 131/71 121/74 134/89 Pulse Oximetry 93 96 97 Oxygen Delivery Simple Face Mask Simple Face Mask Simple Face Mask Oxygen Flow Rate 10 10 10 08/02/22 10:50 08/02/22 11:05 08/02/22 11:20 Temperature Pulse Rate 74 77 76 Respiratory Rate 12 15 13 Blood Pressure 137/80 126/69 124/71 Pulse Oximetry 98 98 96 Oxyg
[2022-08-03 13:33] VITALS: O2SAT 94
== END 2022-08-03 13:37 | disposition home or self-care (01) ==
LOC: ANHSURGERY 09:51 → ANH2MED 11:50
PROVIDERS: PCP Internal Medicine; Visit Provider Orthopaedic Surgery
PROC: (CPT 27447; principal; 2022-08-02 07:30)
DX: M17.0 Bilateral primary osteoarthritis of knee (principal); G89.18 Other acute postprocedural pain; I10 Essential (primary) hypertension; K21.9 Gastro-esophageal reflux disease without esophagitis; R73.03 Prediabetes; E66.9 Obesity, unspecified; Z68.32 Body mass index [BMI] 32.0-32.9, adult; Z79.01 Long term (current) use of anticoagulants; Z79.899 Other long term (current) drug therapy
CPT/HCPCS: 27447; 20610; 64447; 36415; 73560; 80048; 80307; 82040; 82948; 83036; 85025; 86850; 86900; 86901; 87081; 93005; 97110; 97116; 97161; 97165; 97530; 97535; A9270; C1713; C1776; J0171; J0330; J0690; J1100; J1170; J2250; J2270; J2405; J2704; J2710; J2795; J3010; J3301; J7030; J7120

== ENCOUNTER 2022-09-01 10:30 | Outpatient (CLI) | payer MEDICARE, SELFPAY ==
--- NOTE | ~2022-09-01 | XR_ITS ---
Clinical Indication: Cough PA and lateral views of the chest: Comparison: None Findings: The lungs are clear, without evidence of focal consolidation or pleural effusion. Cardiome diastinal silhouette is within normal limits. Bones and soft tissues are unremarkable. Impression: Normal chest. Reviewed, dictated and finalized at location . Impression: Normal chest.
== END 2022-09-01 10:31 | disposition home or self-care (01) ==
PROVIDERS: PCP Internal Medicine; Visit Provider Internal Medicine
DX: R05.9 Cough, unspecified (principal); R09.89 Other specified symptoms and signs involving the circulatory and respiratory systems
CPT/HCPCS: 71046

== ENCOUNTER 2022-10-14 15:00 | Outpatient (RCR) | payer MEDICARE, SELFPAY ==
--- NOTE | 2022-08-18 12:10 | PTOPEVAL1 ---
Assessment and note entered by Juliann Corbett, PT Evaluation Information Assessment Status Evaluation Diagnosis L TKR Onset 08-02-22 Subjective Information since surgery have completed [facility] few days ago; getting around in his home OK, is able to get upstairs to bed room without any problems; using wheeled walker; have a cane at home; Reported Pain Level Pain Score Self Report L knee Additional Pain Score Comments pain range in past few days, 0-4/10; low numbness anterior knee; increase with bending knee; decrease ice, rest, elevation, tylenol and aspirin for pain; with sleeping awaken about 1 & 1/2 hr; (normal sleep 3-4 hr at time) Assessment PT Clinical Summary Rubin is s/p L TKR on 08-02-22. He has had [facility] PT services and is WBAT on L LE. He reports discomfort with sleeping and bending his knee. Did not voice any concerns about his mobility at home, asking about using the cane--reinforced protocol of 4 weeks walker use before starting the cane. Prior to surgery, he was active, lives alone. With the evaluation, he has decreased strength and ROM of L Knee: (-8') to 90'; using the wheeled walker with good gait sequence- limp on L and decreased knee flexion with swing through. there is edema over knee and residual bruising over calf and thigh. Skilled PT services are indicated for modalities to decrease pain and edema over L knee, therapeutic exercises to increase knee ROM and strength and education for progression of HEP, gait retraining and balance, for return to active lifestyle. Plan of Care Interventions Gait Training,Hot Pack/Cold Pack,Intermittent Compression,Manual Therapy,Neuro Re-education, Patient/Caregiver Education,Therapeutic Activities, Therapeutic Exercise,Other Other Interventions taping PT Services Indicated Yes Treatment Frequency and 2x/wk for 5 weeks Duration These treatments will address the objective and functional deficits as defined above. The patient will be advanced safely and appropriately in order for the patient to progress towards his/her prior level of function. Additional exercises will be introduced and as well as a comprehensive home exercise program upon discharge, if needed, ?to ensure carryover of functional gains achieved in the clinic.
--- NOTE | 2022-09-22 14:28 | PTOPPROG ---
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 Compared to the initial evaluation, he has improved with: 2 minute walking test distance to 520'; 5 reps sit/stand time by 8 sec; mat strengthening exercises; single leg standing is 3 seconds; gait without device, alternating step pattern, is performing steps with alternating step pattern; reported sleeping tolerance. ROM L knee: sitting knee extension (-12') and flexion 110', with stretch to 115'; standing L knee extension is (-15'); His pain rating is the same at 0-4/10 and circumferential knee measurements are within 1 cm. The goals were partially met. Continue PT to increase knee extension ROM and knee strength in standing. Plan of Care Interventions Hot Pack/Cold Pack,Manual Therapy,Neuro Re- education,Patient/Caregiver Education,Therapeutic Activities,Therapeutic Exercise,Ultrasound,Other Other Interventions taping PT Services Indicated Yes Treatment Frequency and 2x/wk x 3 weeks Duration These treatments will address the objective and functional deficits as defined above. The patient will be advanced safely and appropriately in order for the patient to progress towards his/her prior level of function. Additional exercises will be introduced and as well as a comprehensive home exercise program upon discharge, if needed, ?to ensure carryover of functional gains achieved in the clinic. This treatment plan has been reviewed and agreement upon by the patient.
--- NOTE | 2022-10-14 15:30 | PTOPDC ---
Assessment and note entered by Juliann Corbett, PT Evaluation Information Assessment Status Discharge Diagnosis L TKR Onset 08-02-22 Subjective Information Rubin reports: is able to stand and walk without pain; only thing cannot do is kneel; Reported Pain Level Pain Score Self Report Additional Pain Score Comments pain range in the past week 0-2/10 L knee; pain increase with bending knee and kneeling; is sleeping OK; taking tylenol and arthritis tylenol; is using ice occassionally; Assessment PT Clinical Summary Rubin has received 16 PT sessions. Compared to the last reevaluation, he has improved with: less pain at worst range from 4 to 2/10; 5 reps sit/stand time was 2 seconds faster; strength of L LE with single leg standing; He continues to have edema over knee, with circumferential measurement 1-2 cm more; His sitting active ROM of L knee is (-5') to 115' He is indep with his home exercise program and it has been emphasized to continue with stretching extension ROM. The goals were achieved, except knee extension to 0'; Discharge PT services. Plan of Care PT Services Indicated No
== END 2022-10-15 09:07 | disposition home or self-care (01) ==
LOC: ANHPT 15:00
PROVIDERS: PCP Internal Medicine; Visit Provider Orthopaedic Surgery
DX: Z47.1 Aftercare following joint replacement surgery (principal); Z96.652 Presence of left artificial knee joint
CPT/HCPCS: 97110; 97112; 97140; 97161; 97530

== ENCOUNTER 2022-11-04 07:30 | Outpatient (CLI) | payer MEDICARE, SELFPAY ==
--- NOTE | ~2022-11-04 | CT_ITS ---
Clinical Indication: Dyspnea CT Angiogram of the Chest with Contrast: Technique: Contiguous sections were acquired throughout the chest after intravenous administration of 100 cc of Omnipaque 350. Coronal maximum intensity projection 3-D reconstructions were created on [facility] workstation by the technologist. Dose reduction technique was used on this scan by utilizing autom ated exposure control and iterative reconstruction technique. The dose-length product (DLP) was 848.5 9 mGy-cm. Findings: There is no evidence of any significant mediastinal, hilar or axillary lymphadenopathy. There is no f illing defect in the pulmonary arterial tree to suggest pulmonary embolus. There is no aortic aneurys m. Mild coronary artery calcifications are present. There is no evidence of pleural or pericardial effusion. There is minimal bibasilar atelectatic change versus possibly subpleural reticulation. Images through the upper abdomen reveal no abnormalities. Impression: No evidence of pulmonary embolus, aortic dissection, or aortic aneurysm. Probable minimal bibasilar atelectatic change, less likely minimal chronic interstitial disease. Reviewed, dictated and finalized at location . Impression: No evidence of pulmonary embolus, aortic dissection, or aortic aneurysm. Probable minimal bibasilar atelectatic change, less likely minimal chronic inte rstitial disease.
[2022-11-04 08:35] LABS: Estimated Glomerular Filt Rate 50
== END 2022-11-04 07:31 | disposition home or self-care (01) ==
LOC: ANHIMG 07:32
PROVIDERS: PCP Internal Medicine; Visit Provider Internal Medicine
DX: R06.09 Other forms of dyspnea (principal); R06.02 Shortness of breath; R53.83 Other fatigue
CPT/HCPCS: 71275; Q9967

== ENCOUNTER 2022-12-09 07:27 | Outpatient (CLI) | payer MEDICARE, SELFPAY ==
--- NOTE | ~2022-12-09 | NM_ITS ---
EXAMINATION: NM nathaniel stress w perfusion DATE: 12/09/2022 11:31 INDICATION: Shortness of breath TECHNIQUE: Rest images were obtained following intravenous administration of 10.4 mCi Tc99m tetrofosm in (Myoview). The patient was infused intravenously with Lexiscan (Regadenoson). Then, 33.6 mCi Tc99m tetrofosmin (Myoview) was administered intravenously, and stress images were obtained. Data was manny nstructed into short axis and horizontal and vertical long axis SPECT images. Gated SPECT images were also obtained. COMPARISON: None. FINDINGS: There is no definite reversible or fixed perfusion abnormality to suggest ischemia or infar ction. There is normal left ventricular chamber size, wall motion and ejection fraction. Left ventr icular ejection fraction measures 53%. IMPRESSION: 1. Normal myocardial perfusion at rest and during stress. 2. Left ventricular ejection fraction measuring 53%. Reviewed, dictated and finalized at location L.
--- NOTE | 2022-12-09 07:44 | ECHO_ITS ---
Patient Info Name: Oleg Tay Age: 72 years : 1950 Gender: Male Ht: 76 in Wt: 260 lbs BSA: 2.54 m2 HR: 80 bpm BP: 131 / 89 mmHg Technical Quality: Fair Exam Date: 12/09/2022 7:54 AM Exam Location: [facility] Patient Status: Outpatient Admit Date: 12/09/2022 Staff Ordering Physician: Anshul Mason MD Bologna Maker: Jessica Mackey RDCS Attending Provider: Anshul Mason MD Referring Physician: Marlon DAMON; Exam Type: CA echo doppler color flow Study Info Indications Z82.49 - Family history of ischemic heart disease and other diseases of the circulatory system Complete two-dimensional, color flow and Doppler transthoracic echocardiogram is performed. Summary 1. Complete two-dimensional, color flow and Doppler transthoracic echocardiogram is performed. 2. Left ventricular chamber dimension is normal. 3. Left ventricular systolic function is normal, estimated at 65-70%. 4. The left ventricular diastolic function is grade I diastolic dysfunction. 5. E/e' 8 is minimally elevated. 6. Global longitudinal strain is abnormal at -14.7%. 7. Left atrial chamber dimension is severely enlarged. 8. Right atrial chamber dimension is mildly enlarged. 9. There is mild aortic valve sclerosis. 10. No pulmonary hypertension, estimated pulmonary arterial systolic pressure is 34 mmHg. Left Ventricle E/e' 8 is minimally elevated. Global longitudinal strain is abnormal at -14.7%. Left ventricular chamber dimension is normal. Left ventricular systolic function is normal, estimated at 65-70%. The left ventricular diastolic function is grade I diastolic dysfunction. Right Ventricle Right ventricular systolic function is normal and with normal TAPSE 2.0 cm. Right ventricular chamber dimension is normal. Left Atria Left atrial chamber dimension is severely enlarged. Right Atria Right atrial chamber dimension is mildly enlarged. Aortic Valve The aortic valve is trileaflet. There is mild aortic valve sclerosis. There is no aortic valve stenosis. There is no aortic valve regurgitation. Pulmonic Valve There is no pulmonic regurgitation. Mitral Valve There is no mitral valve stenosis. There is no mitral valve regurgitation. Tricuspid Valve There is no tricuspid valve regurgitation. No pulmonary hypertension, estimated pulmonary arterial systolic pressure is 34 mmHg. Pericardium/Pleural There is no pericardial effusion. Inferior Vena Cava Normal inferior vena cava with >50% collapse upon inspiration consistent with normal right atrial pressure, 5 mmHg. Aorta The aortic root size at the sinus of Valsalva is normal. Left Ventricular Outflow Tract Name Value Normal LVOT 2D LVOT Diameter 2.1 cm LVOT Doppler LVOT Peak Gradient 4 mmHg LVOT Mean Gradient 3 mmHg LVOT VTI 25 cm LVOT VTI/AV VTI Ratio 0.8 LVOT Stroke Volume 91 ml LVOT CO 6.4 l/min LVOT CI 2.5 l/min/m2 Pulmonic Valve Name
--- NOTE | 2022-12-09 08:25 | EST_ITS ---
Patient Info Name: Oleg Tay Age: 72 years : 1950 Gender: Male Ht: 76 in Wt: 260 lbs BSA: 2.54 m2 HR: 70 bpm BP: 140 / 104 mmHg Heart Rhythm: Sinus Rhythm Exam Date: 12/09/2022 9:13 AM Exam Location: [facility] Stress Patient Status: Outpatient Admit Date: 12/09/2022 Staff Ordering Physician: Anshul Mason MD Attending Provider: Anshul Mason MD Exercise Technologist: Shoshana Basurto CT Exercise Physician: Celso Grady DO Exam Type: CA stress nathaniel w NM Study Info Indications R06.09 - Other forms of dyspnea A regadenoson stress test was performed. Summary 1. 1. Negative lexiscan stress test for ischemic ST changes by ECG criteria. 2. 2. Baseline hypertension. 3. 3. Nuclear scan to follow and will be reported separately. Please correlate with it. 4. 4. Patient informed of the above results. Protocol: Lexiscan Stress ECG Details Stage: REST Duration (min): 3 min : 6 sec HR (bpm): 72 SBP (mmHg): 140 DBP (mmHg): 104 Stage: REST Duration (min): 9 min : 39 sec HR (bpm): 69 SBP (mmHg): 140 DBP (mmHg): 104 Stage: STAGE 1 Duration (min): 1 min : 0 sec HR (bpm): 78 SBP (mmHg): 145 DBP (mmHg): 103 Stage: RECOVERY Duration (min): 1 min : 0 sec HR (bpm): 89 SBP (mmHg): 145 DBP (mmHg): 103 Stage: RECOVERY Duration (min): 2 min : 0 sec HR (bpm): 84 SBP (mmHg): 145 DBP (mmHg): 103 Stage: RECOVERY Duration (min): 3 min : 0 sec HR (bpm): 79 SBP (mmHg): 139 DBP (mmHg): 99 Stage: RECOVERY Duration (min): 3 min : 58 sec HR (bpm): 77 SBP (mmHg): 139 DBP (mmHg): 99 Rest HR: 69 bpm Peak HR: 89 bpm Rest Sys BP: 140 mmHg Peak Sys BP: 145 mmHg Max Pred HR: 146 bpm % Max Pred HR: 61 % Target HR: 124 bpm Max RPP: 12,905 bpm*mmHg Termination Reason: Completed protocol Cardiac Symptoms: Shortness of breath Total Time: 1 min : 0 sec Rest Agarwal BP: 104 mmHg Peak Agarwal BP: 103 mmHg Total Dose: 0.4 mg Resting ECG Sinus rhythm. Stress ECG No ST changes. Arrhythmias None. Report Signatures
--- NOTE | 2022-12-09 13:19 | WPDPFTINT ---
PFT Procedure Performed PFT Procedure Performed Spirometry with Pre/Post Bronchodilator Plethysmography (Lung Vol) Diffusing Cap (DLCO) Flow Vol Loop PFT Interpretation This is a pulmonary function test with pre and post-bronchodilator spirometry, plethysmography and diffusing capacity. The test was performed and results interpreted in accordance with the 2019 and 2005 ATS/ERS Task Force guidelines respectively using the Global Lung Function Initiative-2012 reference equations. Patient demonstrated good effort and cooperation. Reproducibility criteria were met. The quality of the pre bronchodilator spirometry maneuver was Grade A and post bronchodilator spirometry maneuver was Grade A. Findings: Spirometry: The contour the inspiratory and expiratory flow tracing are normal. The pre bronchodilator FVC is 5.26 L, 105% predicted. The pre bronchodilator FEV1 is 3.69 L, 100% predicted. The pre bronchodilator FEV1: FVC ratio 70%. The post bronchodilator FVC is 5.51 L, representing a 5% decrease. The post bronchodilator FEV1 is 3.79 L, representing a 3% increase. The post bronchodilator FEV1: FVC ratio 69%. Plethysmography: The total lung capacity is 8.59 L, 104% predicted. The functional residual capacity is 4.53 L, 101% predicted. The residual volume is 3.07 L, 107% predicted. Diffusion capacity: The diffusing capacity unadjusted for hemoglobin and carboxyhemoglobin is 20.0, 72% predicted. The diffusing capacity adjusted for alveolar volume a 2.77, 80% predicted. Impression: The spirometry is normal without evidence of an obstructive abnormality. There is no significant improvement after inhaling a single dose of albuterol. The lung volumes are normal. The diffusing capacity is normal. There are no prior studies for comparison
== END 2022-12-09 07:28 | disposition home or self-care (01) ==
PROVIDERS: PCP Internal Medicine; Visit Provider Internal Medicine
DX: R06.02 Shortness of breath (principal); R06.09 Other forms of dyspnea; R53.83 Other fatigue; Z82.49 Family history of ischemic heart disease and other diseases of the circulatory system; I10 Essential (primary) hypertension
CPT/HCPCS: 78452; 93017; 93306; 94060; 94726; 94729; A9502; J2785

== ENCOUNTER 2022-12-22 13:39 | Outpatient (CLI) | payer MEDICARE, SELFPAY ==
--- NOTE | ~2022-12-22 | US_ITS ---
EXAMINATION: US renal BI DATE: 12/22/2022 14:37 INDICATION: R79.89 - Other specified abnormal findings of blood chemi... TECHNIQUE: Multiple grayscale and Doppler ultrasound images of the kidneys were obtained. COMPARISON: CT abdomen pelvis 06/01/21. FINDINGS: The right kidney measures 11.0 x 5.8 x 6.5 cm. The left kidney measures 14.4 x 5.3 x 6.7 cm. The kidn eys demonstrate normal parenchymal echogenicity. Duplicated collecting system on the left (better see n in the prior CT). There is no hydronephrosis. The bladder wall is thickened to 4 mm. IMPRESSION: Duplicated collecting system on the left. Cystitis versus bladder wall thickening from outlet compromise. Reviewed, dictated and finalized at location K.
== END 2022-12-22 13:40 | disposition home or self-care (01) ==
PROVIDERS: PCP Internal Medicine; Visit Provider Internal Medicine
DX: R79.89 Other specified abnormal findings of blood chemistry (principal); Q63.0 Accessory kidney
CPT/HCPCS: 76775

== ENCOUNTER 2023-01-31 09:12 | Outpatient (CLI) | payer MEDICARE, SELFPAY ==
--- NOTE | ~2023-01-31 | XR_ITS ---
EXAMINATION: XR barium swallow DATE: 01/31/2023 10:12 INDICATION: Gastroesophageal reflux disease with esophagitis TECHNIQUE: The patient drank thick barium, gas-producing crystals, and thin barium. Fluoroscopic spot radiographs of the hypopharynx and esophagus were obtained. Fluoroscopy exposure time was 2.0 minut es. A total of 1239 fluoroscopic images were recorded. COMPARISON: None. FINDINGS: The pharynx is symmetric and without evidence of mass lesion or mucosal irregularity. The e sophagus is normal without mass or stricture. Esophageal motility is normal. Small sliding-type hiata l hernia with gastroesophageal junction 5 cm above level of the diaphragm. Gastroesophageal reflux wa s observed with provocative maneuvers with moderate amount of contrast extending cephalad to the leve l of the thoracic inlet. IMPRESSION: 1. Small sliding-type hiatal hernia with gastroesophageal reflux. Reviewed, dictated and finalized at location A.
== END 2023-01-31 09:13 | disposition home or self-care (01) ==
PROVIDERS: PCP Internal Medicine; Visit Provider Internal Medicine
DX: K21.9 Gastro-esophageal reflux disease without esophagitis (principal); R13.10 Dysphagia, unspecified; K44.9 Diaphragmatic hernia without obstruction or gangrene
CPT/HCPCS: 74220

== ENCOUNTER 2024-02-01 00:39 | Day surgery (SDC) | payer MEDICARE, SELFPAY ==
[2024-01-26 09:25] VITALS: BMI 32.3
--- NOTE | 2024-01-26 09:31 | PC.NURSE ---
Report to the Outpatient Waiting Room, entrance under the green pavilion located off [facility], at time _1030_ on date _[id number]_. Planned Procedure Time: _1230_.? Time changes happen often and if your time is changed the preop area will call you the afternoon before. - You and your visitor will be asked to self-screen and do not enter if you have any COVID symptoms. Please call surgeon if you need to reschedule. - A mask is optional within the hospital at this time. May have clear liquids (water, carbonated beverages, clear teas, apple juice) until 430am surgery with a maximum of 20 ounces. - No food from midnight until time of surgery and no smoking Take only the following medications with a SIP of water on the morning of surgery: ___None DO NOT STOP ANY OF YOUR OTHER PRESCRIPTION MEDICATIONS PRIOR TO SURGERY EXCEPT THE FOLLOWING Medications to discontinue per physician ____Ozempic, please skip this Tuesday's dose.____Stop Tumeric also on Tuesday. Date to take last dose Please no make-up, nail kinyarwanda, hairspray, perfume, deodorant, or body powder the day of surgery.? No jewelry (including any body piercings) or valuables the day of surgery, leave them at home.? Please take a shower or bath the night before, or the morning of, surgery with an antibacterial soap.? Wear comfortable, loose fitting clothing.? Children are encouraged to wear pajamas. - Jewelry must be removed prior to entering the operating room.? Rings and piercings that are not removed may be cut off. - The hospital will not accept responsibility for valuables.? - Please leave all valuables, including medications, at home the day of surgery. If you are going home after surgery, a licensed skidder driver must drive you home.? - NO public transportation without another adult if you receive anesthesia. - We recommend that an adult stay with you for 24 hours following discharge. - We also recommend that you do not drive, make important decision, drink alcoholic beverages, or take any drugs that were not prescribed by your health care provider for at least 24 hours after your discharge time. For Pediatric surgeries, we recommend two adults accompany the child home. Follow any additional instructions given to you from your surgeon. Telephone instructions given to _Tom_and asked if any additional questions and then verbalized understanding. Patient advised to call surgeon office or pre surgery nurse liaison [phone] if any additional questions.
--- NOTE | 2024-02-01 06:53 | PM.HPGS ---
History of Present Illness History of Present Illness Chief complaint: trigger finger left middle finger Narrative: Patient seen and examined in pre-operative holding area. No interval change in medical history or symptoms. Patient recalls previous discussion of benefits and alternatives to procedure. Continues to desire to proceed with left middle finger a1 lance release. Reviewed procedure, post-op expectations and risks including but not limited to bleeding, infection, injury to tendon/nerve/vessel, decreased hand function, stiffness, RSD, no change or worsening of symptoms. I discussed the possible use of assistants and their participation in the case. Patient stated understanding and signed the consent form wishing to proceed. Review of Systems Review of Systems: All systems reviewed & are unremarkable except as noted in HPI and below PMFSH Past Medical History Medical History Arthritis of right knee Benign essential hypertension Bilateral hand numbness BMI 32.0-32.9,adult BMI 33.0-33.9,adult Cold sore Colon cancer screening DJD (degenerative joint disease) VALLE (dyspnea on exertion) Encounter for Medicare annual wellness exam Encounter for routine adult health examination without abnormal findings Fatigue Finger injury Gastroenteritis GERD (gastroesophageal reflux disease) Hearing loss Insomnia Kidney stone Left flank pain Loose stools Non-healing skin lesion Pain in left knee Personal history of COVID-19 Pre-diabetes Psoriasis Skin tag Stricture of esophagus Trigger finger URI (upper respiratory infection) Vision changes Surgical History Surgical History Hx of arthroscopic knee surgery Hx of detached retina repair 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 He elects his friend Mindy to be his surrogate. He wishes to be a full code at this time. Smoking status: Never smoker Second hand tobacco smoke exposure: No Alcohol intake: current Drinks per week: 2 Alcohol use details: STATES 2-4 BEERS/WEEK Substance use: never Do You Feel Safe in your Home?: Yes Lack of Transportation: No Lack of Food: Never True Current Housing: I Have Housing Concerned About Future Housing: No Difficulty Paying Gas/Electric Bills: No Difficulty Paying for Meds: No Currently Unemployed: No Education: Bachelor's Degree Difficulty w/ Childcare or Family Care: No Living arrangements: alone Occupation/Education: retired Gender identity (if verbalized by the patient): Male Spiritual care concerns: No Agree to blood products: Yes Meds Home Medications and Allergies Home Medications Medication Instructions Recorded Confirmed Type turmeric 100 mg-julia 150 1 cap PO DAILY 12/24/21 01/26/24 History mg-olive 50 mg-oreg 150 mg-capryl capsule acetaminophen 500 mg tablet 1,000 mg PO Q6H PRN Pain 09/01/22 01/26/24 History (Tylenol Extra Strength) semaglutide 1 mg/dose (4 mg/3 mL) 1 mg (0.75 mL) subcut WEEKLY #9 mL 10/24/23 01/26/24 Rx subcutaneous pen injector (Ozempic) omeprazole 40 mg capsule,delayed See Rx Instructions .Route 11/16/23 01/26/24 Rx release .COMPLEX #180 caps amlodipine 10 mg-valsartan 160 mg See Rx Instructions .Route 12/19/23 01/26/24 Rx tablet .COMPLEX #90 tabs meloxicam 15 mg tablet See Rx Instructions .Route 12/19/23 01/26/24 Rx .COMPLEX #30 tabs pravastatin 40 mg tablet See Rx Instructions .Route 01/20/24 01/26/24 Rx .COMPLEX #90 tabs
--- NOTE | 2024-02-01 06:54 | P.OP_ITS ---
Procedure Note - Detailed Date of Procedure 02/01/24 Pre-op Diagnosis trigger finger left middle finger Post-op Diagnosis Same Procedure Performed L MF a1 lance release Surgeon Ellyn Thomas MD Composer Teaching Artist joao arrington pa-c Anesthesia MAC Description of Procedure INFORMED CONSENT: The patient was seen and examined and marked in the pre-op area.? The patient signed the consent form. PROCEDURE IN DETAIL:The patient taken back to OR on the stretcher in supine position. Time out performed with anesthesia, surgeon and staff agreeing on patient's name site and surgery to be performed SCDs were placed on the lower extremities and inflated. A tourniquet was placed on {left} upper extremity and antibiotics given IV After anesthesia administered sedation I injected {3}cc 1%lido and 0.5% marcaine plain at the operative site The?{/left upper extremity}?was prepped and draped in sterile fashion the??{left upper extremity} was? exsanguinated with Esmarch bandage and tourniquet inflated to 250mmHg I proceeded with making a longitudinal incision over the left middle finger a1 lance through skin and dermis with a 15 blade scalpel. Littler scissors were used to spread down to a1 lance. The A1 lance was initially incised with 15 blade then littler scissors were used to spread above and below it proximally and distally and completing the transection entirely. Ragnell retractors were used to withdraw the FDS and FDP tendons for inspection. They were free of masses and synovitis and gliding smoothly in the sheath without triggering or crepitus. The tendos were allowed to retract back in to the wound and I irrigated with normal saline and closed with 4-0 chromic. A dressing of xeroform, 4x4, rodrigue, and an lynette bandage was applied after the tourniquet was let down noting the hand was warm and well perfused. The patient was then awaken from anesthesia and transferred to the recovery room in stable condition.? Complications - none EBL- 0cc Disposition - home in stable conditions Joao Arrington PA-C was essential for positioning, retraction, closure and dressing placement AM Billing Surgery - Charge Forward: Surgery Billing ([id number] for joao)
[2024-02-01 08:46] VITALS: BP 115/70; PULSE 69; RESP 18; TEMP 36.1; O2SAT 96
--- NOTE | 2024-02-01 11:33 | WPDANESEPPF ---
Anes - Initial Pre Proc Eval Procedure: Operation Date: 02/01/24 12:30 Proposed Procedures p Release A-1 Christopher Left Middle Finger - Ellyn Thomas MD Date/Time: 02/01/24 11:33 Surgeon: Ellyn Thomas MD Pre Op Diagnosis: trigger finger left middle finger Patient Data Age: 73 Gender: M Height: 1.93 m Weight: 121 kg Last Vital Signs Temp 96.9 F L 02/01/24 08:46 Pulse 69 02/01/24 08:46 Resp 18 02/01/24 08:46 BP 115/70 02/01/24 08:46 Pulse Ox 96 02/01/24 08:46 O2 Del Method Room Air 02/01/24 08:46 Allergies Allergy/AdvReac Type Severity Reaction Status Date / Time No Known Allergies Allergy Verified 02/01/24 10:51 Home Medications Medication Instructions Recorded Confirmed Type turmeric 100 mg-julia 150 1 cap PO DAILY 12/24/21 02/01/24 History mg-olive 50 mg-oreg 150 mg-capryl capsule acetaminophen 500 mg tablet 1,000 mg PO Q6H PRN Pain 09/01/22 02/01/24 History (Tylenol Extra Strength) semaglutide 1 mg/dose (4 mg/3 mL) 1 mg (0.75 mL) subcut WEEKLY #9 mL 10/24/23 02/01/24 Rx subcutaneous pen injector (Ozempic) omeprazole 40 mg capsule,delayed See Rx Instructions .Route 11/16/23 02/01/24 Rx release .COMPLEX #180 caps amlodipine 10 mg-valsartan 160 mg See Rx Instructions .Route 12/19/23 02/01/24 Rx tablet .COMPLEX #90 tabs meloxicam 15 mg tablet See Rx Instructions .Route 12/19/23 02/01/24 Rx .COMPLEX #30 tabs pravastatin 40 mg tablet See Rx Instructions .Route 01/20/24 02/01/24 Rx .COMPLEX #90 tabs zolpidem 10 mg tablet 10 mg PO QHS #30 tabs 01/23/24 02/01/24 Rx tramadol 50 mg tablet 50 mg PO Q6H PRN pain #12 tabs 02/01/24 Rx Patient hx anesthesia problems: none Family hx anesthesia problems: none Results Review: All pre-operative results and documents have been reviewed as part of the pre-operative evaluation. [facility] Past Medical History Medical History Arthritis of right knee Benign essential hypertension Bilateral hand numbness BMI 32.0-32.9,adult BMI 33.0-33.9,adult Cold sore Colon cancer screening DJD (degenerative joint disease) VALLE (dyspnea on exertion) Encounter for Medicare annual wellness exam Encounter for routine adult health examination without abnormal findings Fatigue Finger injury Gastroenteritis GERD (gastroesophageal reflux disease) Hearing loss Insomnia Kidney stone Left flank pain Loose stools Non-healing skin lesion Pain in left knee Personal history of COVID-19 Pre-diabetes Psoriasis Skin tag Stricture of esophagus Trigger finger URI (upper respiratory infection) Vision changes Surgical History Surgical History Hx of arthroscopic knee surgery Hx of detached retina repair 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 He elects his friend Mindy to be his surrogate. He wishes to be a full code at this time. Smoking status: Never smoker Second hand tobacco smoke exposure: No Alcohol intake: current Drinks per week: 2 Alcohol use details: STATES 2-4 BEERS/WEEK Substance use: never Do You Feel Safe in your Home?: Yes Lack of Transportation: No Lack of Food: Never True Current Housing: I Have Housing Concerned About Future Housing: No Difficulty Paying Gas/Electric Bills: No Difficulty Paying for Meds: No Currently Unemployed: No Education: Bachelor's Degree Difficulty w/ Childcare or Family Care: No Living arrangements: alone Occupation/Edu
[2024-02-01] MEDS: ceFAZolin 3 GM/D5W 100 ML 100 ML IVPB (11:36)
[2024-02-01] MEDS: LIDO 1%/EPINEPHRINE 1:100,000 20 ML VIAL INFILTRATE (11:48)
[2024-02-01] MEDS: BUPivacaine HCL 0.5% PF 30 ML VIAL INFILTRATE (11:48)
[2024-02-01] MEDS: BACITRACIN OINTMENT 15 GM TUBE 1 APPLIC TOPICAL (11:51)
[2024-02-01 11:56] VITALS: BP 120/76; PULSE 74; RESP 20; O2SAT 93
[2024-02-01] MEDS: LACTATED RINGERS 1,000 ML 30 ML IV CONT (11:56)
[2024-02-01 12:25] VITALS: BP 140/92; PULSE 73; RESP 16
[2024-02-01 12:55] VITALS: BP 140/92; PULSE 73; RESP 16
== END 2024-02-01 13:06 | disposition home or self-care (01) ==
PROVIDERS: PCP Internal Medicine; Visit Provider Plastic Surgery
PROC: (CPT 26055; principal; 2024-02-01 12:30)
DX: M65.332 Trigger finger, left middle finger (principal); I10 Essential (primary) hypertension; K21.9 Gastro-esophageal reflux disease without esophagitis; R73.03 Prediabetes; G47.00 Insomnia, unspecified; Z79.85 Long-term (current) use of injectable non-insulin antidiabetic drugs
CPT/HCPCS: 26055; A9270; J0690; J2704; J3010; J7120

== ENCOUNTER 2024-07-03 15:17 | Emergency (ER) | payer MEDICARE, SELFPAY ==
--- NOTE | ~2024-07-03 | CT_ITS ---
History: Headache PROCEDURE: CT head without contrast. COMPARISON: None TECHNIQUE: Axial imaging of the head performed from the skull base to the vertex without IV contrast. Sagittal a nd coronal reformations obtained. DLP: 681 mGy-cm FINDINGS: The ventricles are normal in size, shape and position. There is no mass, mass effect or midline shift. There is no abnormal extra-axial fluid collection or intracranial hemorrhage. Opacification of the right sphenoid sinus. The remainder of the paranasal sinuses are clear. The mastoid air cells are well aerated. No acute displaced fractures within the overlying cranium. Impression: No acute intracranial hemorrhage or suspicious mass effect. Inflammatory sinus disease. Reviewed, dictated and finalized at location A. [facility] HOLD Impression: No acute intracranial hemorrhage or suspicious mass effect. Inflammatory sinus disease.
[2024-07-03 15:21] VITALS: BP 162/103; PULSE 90; RESP 20; TEMP 36.5; O2SAT 95
--- OUTSIDE RECORDS SUMMARY | 2024-07-03 15:44 | XMS_ITS | Data Portability ---
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 He had his left knee replaced in July of this year by Dr. Eisenberg. He had uneventful recovery. He had a cortisone injection done on December 22 of this year by Dr. Eisenberg right knee. Right knee is doing okay at this point. He did want to talk about having the right knee replaced. Been having symptoms for a long time. He is very happy with his left total knee and feels that he wants to proceed with the right but wants to wait until after the of the year. 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 Physical exam: 72-year-old male he is 6 ft 2 and 266 lb his BMI is 34.2. He has mild effusion in the right knee. Range of motion is from to 2-135? ? ?. Hip range of motion is full without discomfort. Negative Stinchfield maneuver. Mild tenderness over the medial joint line palpation. Normal stability in the knee. No edema in either lower extremity. He walks relatively well without limp. 2+ dorsalis pedis pulse. Impression: 72-year-old male who has tcte-em-vvpe osteoarthritis in the medial compartment PA flexion view and moderately severe medial compartment osteoarthritis on the AP view. I did discuss x-ray findings with him. Again he is fairly certain he wishes his knee replaced after the of the year. He had a cortisone injection in December and we talked about repeating that in March which would be 3 months and that would put his surgery to mid to late June and he is comfortable with this plan. So we will plan on having him return in mid March for cortisone injection right knee and then have him return in early May for surgical consultation. 30 minutes was spent in treatment patient more than half of this in hfch-vy-wqaw conversation Not available 02/11/2023 10:36:03 03/25/2023 03/25/2023 HPI: Patient returns. He is here cortisone injection right knee. Last shot was [address] Eisenberg. He has lukh-ja-dgkf medial compartment osteoarthritis. He is wanting to have his knee replaced in early July next year. He had the left 1 done in August [address] Eisenberg and it did well. He wishes to have surgery in early spring next year. Physical exam: 72-year-old male alert pleasant. He is 6 ft 2 and 266 lb BMI is 34.2. He has pmgl-om-jajttquu effusion in the right knee. Range of motion is from 7-130 degrees. He has some mild tenderness over the medial joint line palpation. No increased swelling in either lower extremity. He walks well without limp. After ChloraPrep was used on skin 20 mg Kenalog and 3 cc of 0.5% ropivacaine was injected into the right knee. Impression: 72-year-old male who has severe medial compartment osteoarthritis. We will see him in 2 months for surgical consultation. Not available 03/25/2023 09:23:55 05/20/2023 05/20/2023 Impression: Patient has severe medial compartment osteoarthritis of his right knee. He has been using periodic cortisone injections and naproxen for the last year. He is having more more difficulties with his knee and he like to proceed with right knee replacement at this time. Use think about July as a time frame. I reviewed knee replacement with him. I have given him the Ortho info handout for his review. I explained that we numbness lateral to the incision patient's have difficulty kneeling for a long time after knee replacement in some patients have chronic anterior knee sensitivity. I discussed risk of complications with him in detail. He states his teeth are fine. I explained my preference that he use antibiotic prophylaxis before dental work for life. Risk of blood clots was discussed. I explained my preference for using Eliquis for 2 weeks followed by baby aspirin twice daily for 4 weeks after surgery to minimize risk of DVT. Risk of complications that may require revision surgery were reviewed such as ligament injury fracture component loosening or wear. Risk of nerve injury bleeding transfusion and stiffness were discussed. Risk of medical complications such as heart attack stroke pulmonary embolism and were reviewed. Patient understands and wishes to proceed with surgery as discussed. Sent is been a year since his left knee replacement we will ask him to see Dr. Holman before surgery for medical clearance. 40 minutes were spent total care this patient more than half the time spent in upry-ih-iexc care. [email or web address] Not available 05/23/2023 14:17:14 08/26/2023 08/26/2023 HPI: Patient returns. He is here wanting a cortisone injection right knee. He has moderate medial compartment osteoarthritis. He is getting ready to go to [place] on vacation in [employer] and wished to have an injection before left. Physical exam: 72-year-old male alert pleasant. He has rsxf-gx-gcxpavrm effusion in the right knee. Range of motion is from 5-135 degrees. Mild tenderness over the medial joint line to palpation. Trace edema in both lower extremities. After alcohol prep 20 mg Kenalog and 3 cc of 0.5% Marcaine was injected into the right knee. Impression: 72-year-old male who has moderate to moderately severe medial compartment osteoarthritis the right knee. Shots have worked well for him in the past. Hopefully this will give him good relief for his vacation. We will see him as needed 20 minutes was spent treatment patient more than half of this in wyzr-tc-klbs conversation [email or web address] Not available 08/26/2023 13:12:28 Plan of Treatment Reminders Order Date Submit Date Provider Last Modified By Organization Details Last Modified Time Details Appointments None recorded. Lab None recorded. Referral None recorded. Procedures injection/a spiration joint/bursa (PROC) - in office procedure, administere d by provider 2022 023 In-Office Order, Internal Use Only DO Not Attach Compendium DO Not Attach Compendium, Do Not Delete/merge, [id number] 09:13:03 injection/a spiration joint/bursa (PROC) - in office procedure, administere d by provider 2023 024 [email or web address] In-Office Order, Internal Use Only DO Not Attach Compendium DO Not Attach Compendium, Do Not Delete/merge, [id number] 11:28:00 Surgeries None recorded. Imaging XR, [facility] 2022 [facility] [place], [facility] [facility] [address], [place], [address], 3 19:57:10 Medication Orders Kenalog 10 mg/mL suspension for injection [address] [id number], [address] [place], [place], [id number], 3 17:22:55 ropivacaine (PF) 5 mg/mL (0.5 %) injection solution [address] [facility], [address] [place], [place], [id number], 3 17:22:55 Kenalog 10 mg/mL suspension for injection [address] [facility], [address] [place], [place], [id number], 4 12:34:50 Marcaine (PF) 0.5 % (5 mg/mL) injection solution 2023 024 [address] [facility] [facility], [address] [place], [place], [id number], 4 12:34:50 Patient TargetsNo targets recorded. Patient InstructionsNo instructions recorded. Reason for Referral None Reported. Results Created Date Observation Date Name Description Value Unit Range Abnormal Flag Note LastModifiedBy Organization Detail LastModifiedTime 02/12/20 XR, knee No observ ation record ed. [facility] [place] [address], [place], [address], 02/11/2023 10:32:42 Result Notes None recorded. Problems Name Problem SNOMED Code Status Onset Date Resolution Date Notes Provider Name and Address Organization Details Recorded Time Acquired trigger finger 4327163 Active Not Available [facility] 3 13:30:26 Current tear of medial cartilage AND/OR meniscus of knee Active Not Available [facility] 3 13:30:26 Knee pain Active Not Available [facility] 3 13:30:26 Osteoarthr itis 155030527 Active Not Available [facility] 3 13:30:26 Olecranon bursitis 430408557 Active Not Available [facility] 3 13:30:26 Hip pain 00164515 Active Not Available [facility] 3 13:30:27 Pain of right knee joint 9027953756109 00 Active 2022 CRISTY Murrell [employer] 3 09:26:26 Osteoarthr itis of right knee joint 4797174484520 00 Active 2022 CRISTY Murrell, [facility] 3 09:12:05 Problem Notes None recorded. Procedures Surgical History Date Name Laterality Status Provider Name and Address Organization Details Recorded Time Knee Surgery completed CRISTY Murrell [facility] 02/11/2023 09:25:52 Imaging Results Imaging Date Name Status LastModified by Organiz ation Details LastModified Time 02/11/2023 XR, knee completed [facility] [place] [address], [place], [address], 02/11/2023 10:32:42 Procedure Notes None recorded. Medical Equipment None Reported. Medications Name Sig Start Date Stop Date Status Note LastModified by Organization Details LastModified Time celecoxib 200 mg capsule TAKE 1 CAPSULE BY MOUTH TWICE DAILY FOR 1 WEEK 03/25 completed Not Available Not Available Not Available amoxicillin 500 mg capsule TAKE FOUR CAPSULES BY MOUTH 1 HOUR BEFORE DENTAL PROCEDURE OR SURGERY 03/25 completed Not Available Not Available Not Available pravastatin 40 mg tablet TAKE 1 TABLET BY MOUTH DAILY active Not Available Not Available No t Available hydrocodone 5 mg-acetamin ophen 325 mg tablet TAKE 1 TABLET BY MOUTH EVERY 4 TO 6 HOURS NEEDED FOR PAIN 05/20 completed Not Available Not Available Not Available meloxicam 15 mg tablet TAKE 1 TABLET BY MOUTH AT BEDTIME active Not Available Not Available No t Available fluorouraci l 5 % topical cream 03/23 completed Not Available Not Available Not Available ciprofloxac in 500 mg tablet TAKE 1 TABLET BY MOUTH EVERY 12 HOURS active Not Available Not Available No t Available omeprazole 40 mg capsule,del ayed release TAKE 1 CAPSULE BY MOUTH TWICE DAILY active Not Available Not Available No t Available tramadol 50 mg tablet TAKE 1 TABLET BY MOUTH EVERY 6 HOURS NEEDED FOR PAIN 03/25 completed Not Available Not Available Not Available amoxicillin 500 mg tablet TAKE 4 TABLETS BY MOUTH 1 HOUR BEFORE DENTAL APPOINTME NT active Not Available Not Available No t Available fluticasone propionate 0.005 % topical ointment 03/23 completed Not Available Not Available Not Available Kenalog 10 mg/mL suspension for injection IN OFFICE 2023 active [facility]: [phone] Not Available Not Available Not Available cephalexin 500 mg capsule TAKE 1 CAPSULE BY MOUTH EVERY 6 HOURS UNTIL GONE 05/20 completed Not Available Not Available Not Available erythromyci n 5 mg/gram (0.5 %) eye ointment 04/07 completed Not Available Not Available Not Available omeprazole 20 mg capsule,del ayed release 03/25 completed Not Available Not Available Not Available pravastatin 20 mg tablet 03/25 completed Not Available Not Available Not Available zolpidem 10 mg tablet TAKE 1 TABLET BY MOUTH EVERY DAY AT BEDTIME active Not Available Not Available No t Available methylpredn isolone 4 mg tablets in a dose pack 04/07 completed Not Available Not Available Not Available naproxen 500 mg tablet TAKE 1 TABLET BY MOUTH TWICE DAILY NEEDED FOR PAIN active Not Available Not Available No t Available oxycodone 5 mg tablet TAKE 1 TABLET BY MOUTH EVERY 6 HOURS NEEDED FOR PAIN 03/25 completed Not Available Not Available Not Available Marcaine (PF) 0.5 % (5 mg/mL) injection solution IN OFFICE 2023 active Not Available Not Available Not Avai lable Cialis 20 mg tablet 03/23 completed Not Available Not Available Not Available lidocaine (PF) 10 mg/mL (1 %) injection solution In office injection administe red by the provider 03/25 completed [facility]: [phone] Not Available Not Available Not Available amlodipine 10 mg-valsarta n 160 mg tablet TAKE 1 TABLET BY MOUTH DAILY active Not Available Not Available No t Available Prevnar 13 (PF) 0.5 mL intramuscul ar syringe active Not Available Not Available N ot Available Xarelto 10 mg tablet TAKE 1 TABLET BY MOUTH DAILY FOR 14 DAYS BEGINNING DAY AFTER SURGERY 03/25 completed Not Available Not Available Not Available ropivacaine (PF) 5 mg/mL (0.5 %) injection solution in office 2022 active [facility] [phone] Not Available Not Available Not Available Dialyvite Vitamin D3 Max 1,250 mcg (50,000 unit) tablet TAKE 1 TABLET BY MOUTH WEEKLY FOR 8 WEEKS AND THEN 1 TABLET EVERY MONTH FOR 2 MONTHS 03/25 completed Not Available Not Available Not Available vitamin K2 active Not Available Not Av ailable Not Available Fluzone High-Dose 7566-2435 (PF) 180 mcg/0.5 mL intramuscul ar syringe active Not Available Not Available N ot Available Ozempic 0.25 mg or 0.5 mg (2 mg/1.5 mL) subcutaneou s pen injector ADMINISTE R 0.5 MG UNDER THE SKIN WEEKLY 03/25 completed Not Available Not Available Not Available Fluzone High-Dose (PF) 180 mcg/0.5 mL intramuscul ar syringe active Not Available Not Available N ot Available Paxlovid 300 mg (150 mg x 2)-100 mg tablets in a dose pack TK 2 NIRMATREL VIR TS AND 1 RITONAVIR T TOGETHER PO BID FOR 5 DAYS active Not Available Not Available No t Available Ozempic 0.25 mg or 0.5 mg (2 mg/3 mL) subcutaneou s pen injector INJECT 0.5 MG UNDER THE SKIN WEEKLY active Not Available Not Available No t Available Vitals Date Recorded Body height Body mass index (BMI) Body weight Provider Name and Address Organization Details Last Updated DateTime 02/11/2023 187.96 cm 34.2 kg/m2 433008.57 g CRISTY Murrell [facility] [employer] [facility] 02/11/2023 09:29:38 Date Recorded Body height Provider Name an d Address Organization Details Last Updated DateTime 03/25/2023 187.96 cm Charmaine Sheridan [facility] [employer] [facility] 03/25/2023 09:09:54 Date Recorded Body height Provider Name an d Address Organization Details Last Updated DateTime 05/20/2023 187.96 cm Charmaine Sheridan Yessenia [facility] [employer] [facility] 05/20/2023 11:15:44 Date Recorded Body height Provider Name an d Address Organization Details Last Updated DateTime 08/26/2023 187.96 cm Charmaine Sheridan Yessenia [facility] [employer] [facility] 08/26/2023 11:24:57 Social History Question Answer Notes LastModified by Organizat ion Details LastModified Time Tobacco Smoking Status Never [facility]oker [facility] [employer] [facility] 02/11/2023 09:25:43 What Is Your Level Of Alcohol Consumption? Occasional Information not available 02/11/2023 Sex: Unknown Functional Status None recorded. Mental Status None recorded. Family History Nothing Reported. Medical History Condition Response HYPERTENSION Y Past Encounters Encounter ID Performer Location Encounter Start Date Encounter Closed Date Diagnosis/Indication Diagnosis SNOMED-CT Code Diagnosis ICD10 Code Diagnosis Note [id number] DRAKE Aguila [facility] [place] [address] [place] [address] 02/11/2023 08:57:16 02/11/2023 10:45:27 Pain of right knee joint 8087356328 03852 M25.770 [id number] DRAKE Aguila [facility] [place] [address] [place] [address] 03/25/2023 09:06:46 03/25/2023 09:26:15 Osteoarthritis of right knee joint 7196167363 39392 M17.11 [id number] Av Young MD [facility] [place] [address] [place] [address] 05/20/2023 10:59:26 05/23/2023 14:33:32 Osteoarthritis of right knee joint 5226325512 18249 M17.11 [id number] DRAKE Aguila [facility] [place] [address] [place] [address] 08/26/2023 11:23:41 08/26/2023 13:18:20 Osteoarthritis of right knee joint 3180200758 18039 M17.11 Health Concerns Section Related Observation LastModified by Organization Detai ls LastModified Time None Recorded Concern Status LastModified by Organization Details LastModified Time None Recorded Advance Directives Directive None Recorded Payers Encounter Date Sequence Insurance Name Policy Number Policy Dubose Covered Member ID Dubose Member ID Guarantor Name 02/11/2023 1 [employer] (MEDICARE REPLACEMENT PPO) [id number] 1 Oleg Arias Maggi [id number] Oleg Arias Maggi 03/25/2023 1 [employer] (MEDICARE REPLACEMENT PPO) [id number] Oleg Arias Maggi [id number] Oleg Arias Maggi 05/20/2023 1 [employer] (MEDICARE REPLACEMENT PPO) [id number] 1 Oleg Arias Maggi [id number] Oleg Hugo Maggi 08/26/2023 1 [employer] (MEDICARE REPLACEMENT PPO) [id number] Oleg Arias Maggi [id number] Oleg Arias Maggi Notes Date Note Type Note Provider Name and Address Organization Details Recorded Time 05/20/2023 text/html patient is a 72-year-old gentleman who presents at this time to discuss options for his right knee. He was last seen on 03/25/2023 at that time he had a cortisone shot in the right knee. It did help him but he is developing pain again. He underwent left total knee arthroplasty by Dr. Eisenberg last July, 10 months ago and has done well with that. He has noticed the symptoms in his right knee much more since having his left knee replaced. It has been getting worse steadily all year. He works out. 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 He he uses naproxen 500 mg peridically for the knee pain. Previous x-rays from 02/11/2023 showed qont-nz-vswi medial compartment osteoarthritis on the PA flexion Stork view. vA Young MD [address] [place] [address], [place] [address], [place], [address], [place] [facility] [employer] [facility] 05/23/2023 14:17:29
--- NOTE | 2024-07-03 16:51 | ED_ITS ---
HPI - General Adult General Chief complaint: Headache Stated complaint: JURADO X2 weeks Time Seen by Provider: 07/03/24 16:51 Focused HPI: Oleg Hollins is a 73 y/o male who presents with reports of having a headache for the past 2-3 weeks dull ache to the right forehead that he states has been progressively getting worse, he states that yesterday and today hes had episodes of not being able to find the right words to answer questions. He states it is not like him and that his friends noticed. He states he was just out No actual LOC but could not find his words He is alert and oriented X 4 Left pupil larger then right at baseline due to a known detached retina that causes an obscure vision at baseline but no other visual changes No focal weakness on exam GENERAL: Well-appearing, well-nourished, and in no acute distress. HEAD: Normocephalic, atraumatic. CHEST: Clear to auscultation. ?No respiratory distress. HEART: Regular rate and rhythm.? NEURO: ?Alert and oriented x3. Patient screened in triage and initial orders placed.? ?Additional care and disposition to be based upon?diagnostic testing and treatment. Related Data Home Medications ?Medication ?Instructions ?Recorded ?Confirmed ?Last Taken ?Type turmeric 100 mg-julia 150 1 cap PO DAILY 12/24/21 06/05/24 07/30/22 History mg-olive 50 mg-oreg 150 mg-capryl capsule Prevagen BYMOUTH 03/16/24 06/05/24 Unknown History naproxen sodium 220 mg capsule 220 mg PO BID PRN 03/16/24 06/05/24 Unknown History (Aleve) omega-3 fatty acids-fish oil 360 1 cap PO DAILY 03/16/24 06/05/24 Unknown History mg-1,200 mg capsule (Fish Oil) pyridoxine (vitamin B6) 100 mg 100 mg PO DAILY 03/16/24 06/05/24 Unknown History tablet Allergies Allergy/AdvReac Type Severity Reaction Status Date / Time No Known Allergies Allergy Verified 06/15/24 07:04 PMFSH Past Medical History Medical History Hypersomnolence Trigger finger Arthritis of right knee Fatigue URI (upper respiratory infection) Encounter for routine adult health examination without abnormal findings Gastroenteritis VALLE (dyspnea on exertion) Bilateral hand numbness Personal history of COVID-19 Benign essential hypertension Psoriasis Skin tag Stricture of esophagus Non-healing skin lesion Cold sore Loose stools Insomnia Kidney stone Left flank pain BMI 32.0-32.9,adult Hearing loss Pain in left knee DJD (degenerative joint disease) Colon cancer screening Vision changes Encounter for Medicare annual wellness exam BMI 33.0-33.9,adult Finger injury GERD (gastroesophageal reflux disease) Pre-diabetes Surgical History Surgical History 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 He elects his friend Mindy to be his surrogate. He wishes to be a full code at this time. Smoking status: Never smoker Second hand tobacco smoke exposure: No Alcohol intake: current Drinks per week: 2 Alcohol use details: STATES 2-4 BEERS/WEEK Substance use: never Do You Feel Safe in your Home?: Yes Lack of Transportation: No Lack of Food: Never True Current Housing: I Have Housing Concerned About Future Housing: No Difficulty Paying Gas/Electric Bills: No Difficulty Paying for Meds: No Currently Unemployed: No Education: Bachelor's Degree Difficulty w/ Childcare or Family Care: No Living arrangements: alone Occupation/Education: retired Gender identity (if verbalized by the patient): Male Spiritual care concerns: No Agree to blood products: Yes Course Vital Signs Vital signs: Vital Signs Temperature 36.5 C 07/03/24 15:21 Pulse Rate 90 07/03/24 15:21 Respiratory Rate 20 07/03/24 15:21 Blood Pressure 162/103 H 07/03/24 15:21 Pulse Oximetry 95 07/03/24 15:21 Oxygen Delivery Room Air 07/03/24 15:21 Temperature 36.8 C 07/03/24 23:05 Pulse Rate 86 07/03/24 23:05 Respiratory Rate 17 07/03/24 23:05 Blood Pressure 142/78 H 07/03/24 23:05 Pulse Oximetry 99 07/03/24 23:05 Oxygen Delivery Room Air 07/03/24 15:21 Medical Decision Making Vital Signs Vital Signs: Vital Signs Temperature 36.5 C 07/03/24 15:21 Pulse Rate 90 07/03/24 15:21 Respiratory Rate 20 07/03/24 15:21 Blood Pressure 162/103 H 07/03/24 15:21 Pulse Oximetry 95 07/03/24 15:21 Oxygen Delivery Room Air 07/03/24 15:21 Temperature 36.8 C 07/03/24 23:05 Pulse Rate 86 07/03/24 23:05 Respiratory Rate 17 07/03/24 23:05 Blood Pressure 142/78 H 07/03/24 23:05 Pulse Oximetry 99 07/03/24 23:05 Oxygen Delivery Room Air 07/03/24 15:21 Lab Data 07/03/24 17:21 07/03/24 17:21 Labs: Lab Results 07/03/24 07/03/24 Range/Units 17:21 20:58 WBC 10.1 H (4.5-10.0) K/mm3 RBC 5.16 (4.6-6.20) M/mm3 Hgb 16.7 D (14.0-18.0) g/dL Hct 48.2 (42.0-52.0) % MCV 93.4 (80-100) fl MCH 32.4 (26-34) pg MCHC 34.6 (32-36) g/dl RDW 12.6 (11.5-14.5) % Plt Count 207 (150-375) k/mm3 MPV 9.8 (7.4-10.4) fl Immature Gran % (Auto) 0.4 (0-0.5) % Neut % (Auto) 67.1 (45.5-73.1) % Lymph % (Auto) 20.2 (18.3-44.2) % [place] % (Auto) 9.9 H (2.6-8.5) % Eos % (Auto) 1.9 (0-4.4) % Baso % (Auto) 0.5 (0.2-1.2) % Lymph # (Auto) 2.04 (0.9-3.2) K/mm3 [place] # (Auto) 1.0 H (0.1-0.6) K/mm3 Eos # (Auto) 0.2 (0-0.3) K/mm3 Baso # (Auto) 0.1 (0.0-0.1) K/mm3 Abs Immat Gran (auto) 0.04 H (0.00-0.031) K/mm3 Absolute Neuts (auto) 6.8 H (1.3-6.7) K/mm3 Absolute Nucleated RBC 0.000 (0.0-0.012) K/mm3 Nucleated RBC % 0.0 (0.0-0.2) % Sodium 140 (137-145) mmol/L Potassium 4.1 (3.4-5.0) mmol/L Chloride 105 (98-107) mmol/L Carbon Dioxide 23 (22-30) mmol/L Anion Gap 12 (4-12) mmol/L BUN 23 H (9-20) mg/dL Creatinine 1.12 (0.7-1.3) mg/dL Estim Creat Clear Calc 72 ml/min Estimated GFR > 60 (59 - ) Glucose 118 H (65-110) mg/dL Calcium 8.5 (8.4-10.2) mg/dL Total Bilirubin 1.3 (0.2-1.3) mg/dL AST 30 (17-59) U/L ALT 33 (6-50) U/L Alkaline Phosphatase 71 (38-126) U/L Troponin I < 0.012 (0.000-0.034) ng/mL Total Protein 7.0 (6.3-8.2) g/dL Albumin 4.0 (3.5-5.1) g/dL Urine Color Yellow (Yellow) Urine Appearance Clear (Clear) Urine pH 5.0 (5.0-9.0) Ur Specific [place] 1.027 (1.001-1.035) Urine Protein Trace (Negative) mg/dL Urine Glucose (UA) Negative (Negative) mg/dL Urine Ketones Trace H (Negative) mg/dL Ur Blood (Man) Negative (Negative) Urine Nitrate Negative (Negative) Urine Bilirubin Negative (Negative) Urine Urobilinogen 0.2 (<2.0) mg/dL Leukocyte Esterase Rfl Negative (Negative) STANISLAW/UL Urine RBC 0-2 (0-2) /hpf Urine WBC 0-5 (0-3) /hpf Ur Squamous Epith Cells None seen (Few) /hpf Urine Bacteria None seen /hpf Urine Casts 0-2 Discharge Plan Discharge Clinical Impression: Headache, migraine Patient Disposition: Home, Self-Care Condition: Stable Instructions: Antibiotic Form, Migraine Headache (ED), Acute Headache (ED) Additional Instructions: Given your headache resolution after migraine cocktail I believe that was the likely cause severe headache. The skin was reassuring as well as her laboratory assessments. No urinary tract infection. Follow-up with regular primary care provider. Return with any new or worsening concerns at any time. Patient Language: Yoruba Prescriptions: No Action dpletodq-tifc-fskyy-oreg-capry 100 mg-150 mg- 50 mg-150 mg capsule 1 cap PO DAILY Ozempic 2 mg/dose (8 mg/3 mL) pen injector 2 mg subcut WEEKLY Qty: 9 1RF Rx Instructions: Please D?C the Ozempic 1mg. Thank you pyridoxine (vitamin B6) 100 mg tablet 100 mg PO DAILY Prevagen BYMOUTH omega-3 fatty acids-fish oil [Fish Oil] 360-1,200 mg capsule 1 cap PO DAILY naproxen sodium [Aleve] 220 mg capsule 220 mg PO BID PRN triamcinolone acetonide 10 mg/mL suspension 20 mg intra-articular ONCE Qty: 2 0RF lidocaine (PF) 10 mg/mL (1 %) solution 40 mg intra-articular ONCE Qty: 4 0RF pravastatin 40 mg tablet See Rx Instructions .ROUTE .COMPLEX Qty: 90 1RF Dose Instruction: TAKE 1 TABLET BY MOUTH DAILY Rx Instructions: TAKE 1 TABLET BY MOUTH DAILY omeprazole 40 mg capsule,delayed release(DR/EC) See Rx Instructions .ROUTE .COMPLEX Qty: 180 1RF Dose Instruction: TAKE 1 CAPSULE BY MOUTH TWICE DAILY Rx Instructions: TAKE 1 CAPSULE BY MOUTH TWICE DAILY meloxicam 15 mg tablet See Rx Instructions .ROUTE .COMPLEX Qty: 30 2RF Dose Instruction: TAKE 1 TABLET BY MOUTH AT BEDTIME Rx Instructions: TAKE 1 TABLET BY MOUTH AT BEDTIME amlodipine-valsartan 10-160 mg tablet See Rx Instructions .ROUTE .COMPLEX Qty: 90 1RF Dose Instruction: TAKE 1 TABLET BY MOUTH DAILY Rx Instructions: TAKE 1 TABLET BY MOUTH DAILY zolpidem 10 mg tablet 10 mg PO QHS Qty: 30 0RF Follow-up/Referrals: Anshul Mason MD [Primary Care Provider] - Time of Disposition: 22:52
--- NOTE | 2024-07-03 17:03 | ECG_ITS ---
Test Date: 2024-07-03 19:33:22 Measurements Intervals [place] Rate: 89 P: 34 [place]: 160 QRS: -55 QRSD: 108 T: 52 QT: 365 QTc: 446 Interpretive Statements SINUS RHYTHM LEFT ANTERIOR FASCICULAR BLOCK [QRS AXIS <= -45, QR IN I, RS IN II] MODERATE VOLTAGE CRITERIA FOR LVH, CONSIDER NORMAL VARIANT [MEETS CRITERIA IN ONE OF: R(aVL), S(V1), R(V5), R(V5/V6)+S(V1)] No previous ECG available for comparison Electronically Signed On 07-04-2024 15:52:18 ELECTROENCEPHALOGRAM TECHNOLOGIST by Jefe Gore M.D.
[2024-07-03 17:31] LABS: Basophils Absolute Auto 0.1 K/mm3 (0.0-0.1); Basophils Percent Auto 0.5 % (0.2-1.2); Eosinophils Absolute Auto 0.2 K/mm3 (0-0.3); Eosinophils Percent Auto 1.9 % (0-4.4); Hematocrit 48.2 % (42.0-52.0); Hemoglobin 16.7 g/dL (14.0-18.0); Immature Granulocyte Absolute 0.04 K/mm3 (0.00-0.031); Immature Granulocyte Percent A 0.4 % (0-0.5); Lymphocytes Absolute Auto 2.04 K/mm3 (0.9-3.2); Lymphocytes Percent Auto 20.2 % (18.3-44.2); Mean Corpuscular HGB Conc 34.6 g/dl (32-36); Mean Corpuscular Hemoglobin 32.4 pg (26-34); Mean Corpuscular Volume 93.4 fl (80-100); Mean Platelet Volume 9.8 fl (7.4-10.4); Monocytes Percent Auto 9.9 % (2.6-8.5); Neutrophils Absolute Auto 6.8 K/mm3 (1.3-6.7); Neutrophils Percent Auto 67.1 % (45.5-73.1); Platelet Count Result 207 k/mm3 (150-375); Red Blood Count 5.16 M/mm3 (4.6-6.20); Red Cell Distribution Width 12.6 % (11.5-14.5); White Blood Count 10.1 K/mm3 (4.5-10.0)
[2024-07-03 17:39] LABS: Alanine Aminotransferase 33 U/L (6-50); Alkaline Phosphatase 71 U/L (38-126); Anion Gap 12 mmol/L (4-12); Aspartate Amino Transferase 30 U/L (17-59); Bilirubin,Total 1.3 mg/dL (0.2-1.3); Blood Urea Nitrogen 23 mg/dL (9-20); Calcium 8.5 mg/dL (8.4-10.2); Carbon Dioxide 23 mmol/L (22-30); Chloride 105 mmol/L (98-107); Estimated CRCL calculation 72 ml/min; Estimated Glomerular Filt Rate > 60; Glucose 118 mg/dL (65-110); Potassium 4.1 mmol/L (3.4-5.0); Sodium 140 mmol/L (137-145)
[2024-07-03 17:50] LABS: Troponin I < 0.012 ng/mL (0.000-0.034)
--- NOTE | 2024-07-03 21:00 | ED.HA ---
HPI - Headache General Chief Complaint: Headache Stated Complaint: JURADO X2 weeks Time Seen by Provider: 07/03/24 16:51 History of Present Illness HPI Narrative: 73-year-old male with a past medical history including hypertension, GERD, prediabetes. Patient presents to the emergency department today with a chief complaint of ongoing right-sided headache for last 2 weeks. He has also had 3 weeks of urination pain and burning. He states that his headache is pounding in nature, not responsive to Aleve, all localized to the right frontal aspect but not behind his eye. Denies any neck pain, nausea, vomiting, abdominal pain, back pain, chest pain, shortness of breath, nasal pain or congestion. Patient denies any injury or trauma. Does not take any blood thinner medications. He states he has also been intermittently more confused over last 3 weeks noticed by his friends and family, patient presently is not diffuse answer all questions appropriately. Alert oriented to person place and time. Ambulating unassisted without any ataxia and has no neurological complaints at this time aside from headache. Related Data Home Medications ?Medication ?Instructions ?Recorded ?Confirmed ?Last Taken ?Type turmeric 100 mg-julia 150 1 cap PO DAILY 12/24/21 06/05/24 07/30/22 History mg-olive 50 mg-oreg 150 mg-capryl capsule Prevagen BYMOUTH 03/16/24 06/05/24 Unknown History naproxen sodium 220 mg capsule 220 mg PO BID PRN 03/16/24 06/05/24 Unknown History (Aleve) omega-3 fatty acids-fish oil 360 1 cap PO DAILY 03/16/24 06/05/24 Unknown History mg-1,200 mg capsule (Fish Oil) pyridoxine (vitamin B6) 100 mg 100 mg PO DAILY 03/16/24 06/05/24 Unknown History tablet Allergies Allergy/AdvReac Type Severity Reaction Status Date / Time No Known Allergies Allergy Verified 06/15/24 07:04 Review of Systems Review of Systems: As reviewed above in HPI [facility] Past Medical History Medical History Hypersomnolence Trigger finger Arthritis of right knee Fatigue URI (upper respiratory infection) Encounter for routine adult health examination without abnormal findings Gastroenteritis VALLE (dyspnea on exertion) Bilateral hand numbness Personal history of COVID-19 Benign essential hypertension Psoriasis Skin tag Stricture of esophagus Non-healing skin lesion Cold sore Loose stools Insomnia Kidney stone Left flank pain BMI 32.0-32.9,adult Hearing loss Pain in left knee DJD (degenerative joint disease) Colon cancer screening Vision changes Encounter for Medicare annual wellness exam BMI 33.0-33.9,adult Finger injury GERD (gastroesophageal reflux disease) Pre-diabetes Surgical History Surgical History 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 He elects his friend Mindy to be his surrogate. He wishes to be a full code at this time. Smoking status: Never smoker Second hand tobacco smoke exposure: No Alcohol intake: current Drinks per week: 2 Alcohol use details: STATES 2-4 BEERS/WEEK Substance use: never Do You Feel Safe in your Home?: Yes Lack of Transportation: No Lack of Food: Never True Current Housing: I Have Housing Concerned About Future Housing: No Difficulty Paying Gas/Electric Bills: No Difficulty Paying for Meds: No Currently Unemployed: No Education: Bachelor's Degree Difficulty w/ Childcare or Family Care: No Living arrangements: alone Occupation/Education: retired Gender identity (if verbalized by the patient): Male Spiritual care concerns: No Agree to blood products: Yes Exam Narrative: GENERAL: [Well-appearing, well-nourished, and in no acute distress.] HEAD: [Normocephalic, atraumatic.] EYES: [PERRLA and EOMI.] ENT: Nares clear, no rhinorrhea or epistaxis. Mucous membranes moist. NECK: Supple. CHEST: [Clear to auscultation. No respiratory distress.] HEART: [Regular rate and rhythm]. No murmur heard. [Normal peripheral pulses.] ABDOMEN: [Soft, nondistended], [nontender], [No rigidity or guarding] EXTREMITIES: Normal range of motion. [No edema.] SKIN: Warm, dry, no rash. NEURO: [No focal deficits]. Alert and oriented [x3.] Answers all questions appropriately, full strength and sensation throughout both arms and legs, no sensory deficits, ambulation without assistance or ataxic or antalgic gait. PSYCH: [Normal mood and affect.] Course Vital Signs Vital signs: Vital Signs Temperature 36.5 C 07/03/24 15:21 Pulse Rate 90 07/03/24 15:21 Respiratory Rate 20 07/03/24 15:21 Blood Pressure 162/103 H 07/03/24 15:21 Pulse Oximetry 95 07/03/24 15:21 Oxygen Delivery Room Air 07/03/24 15:21 Temperature 36.5 C 07/03/24 15:21 Pulse Rate 90 07/03/24 15:21 Respiratory Rate 20 07/03/24 15:21 Blood Pressure 162/103 H 07/03/24 15:21 Pulse Oximetry 95 07/03/24 15:21 Oxygen Delivery Room Air 07/03/24 15:21 MDM - Headache MDM Narrative Medical decision making narrative: 73-year-old male presenting for ongoing headache for last 2 weeks describes a throbbing sensation localized to the right side of his head, no associated trauma or injury. No blood thinner use. No history of migraines but has been endorsing urination complaints such as burning and frequency over last several weeks as well. Patient is awake alert oriented x3, answers all questions and states for last few weeks he has also had some intermittent confusion episodes. He went to his primary care provider office today and was told to go to the ER for his headache. Headache not responsive to leave. He has no neurological deficits, intact gait without any concerns. Otherwise well-appearing, not in any acute distress, vital signs are reassuring without any significant blood pressure elevations, fever, hypoxia, tachycardia. Unremarkable neuro assessment. Will treat him conservatively for headache while workup ordered including CT of the head, CBC, CMP, urinalysis. EKG also obtained. Workup shows an unremarkable CT scan without any intracranial process, so inflammatory sinus disease in the right side which could explain this headache as well. Electrolytes within normal limits, normal renal function, unremarkable CBC. EKG without evidence of ischemia. Negative troponin. He was given Toradol, Compazine, Benadryl and a fluid bolus and re-evaluated. Urinalysis pending. Upon re-evaluation patient had complete symptomatic resolution of his headache. He does have a minor akathisia type response and was given additional Benadryl with resolution. Patient was symptom-free upon discharge and was given strict return precautions as well as outpatient follow-up with his PCP. His workup was unremarkable and his urinalysis was negative. Medical Records Attestation: I reviewed the patient's medical records. Lab Data Attestation: I reviewed the patient's lab results. 07/03/24 17:21 07/03/24 17:21 Labs: Lab Results 07/03/24 07/03/24 Range/Units 17:21 20:58 WBC 10.1 H (4.5-10.0) K/mm3 RBC 5.16 (4.6-6.20) M/mm3 Hgb 16.7 D (14.0-18.0) g/dL Hct 48.2 (42.0-52.0) % MCV 93.4 (80-100) fl MCH 32.4 (26-34) pg MCHC 34.6 (32-36) g/dl RDW 12.6 (11.5-14.5) % Plt Count 207 (150-375) k/mm3 MPV 9.8 (7.4-10.4) fl Immature Gran % (Auto) 0.4 (0-0.5) % Neut % (Auto) 67.1 (45.5-73.1) % Lymph % (Auto) 20.2 (18.3-44.2) % [place] % (Auto) 9.9 H (2.6-8.5) % Eos % (Auto) 1.9 (0-4.4) % Baso % (Auto) 0.5 (0.2-1.2) % Lymph # (Auto) 2.04 (0.9-3.2) K/mm3 [place] # (Auto) 1.0 H (0.1-0.6) K/mm3 Eos # (Auto) 0.2 (0-0.3) K/mm3 Baso # (Auto) 0.1 (0.0-0.1) K/mm3 Abs Immat Gran (auto) 0.04 H (0.00-0.031) K/mm3 Absolute Neuts (auto) 6.8 H (1.3-6.7) K/mm3 Absolute Nucleated RBC 0.000 (0.0-0.012) K/mm3 Nucleated RBC % 0.0 (0.0-0.2) % Sodium 140 (137-145) mmol/L Potassium 4.1 (3.4-5.0) mmol/L Chloride 105 (98-107) mmol/L Carbon Dioxide 23 (22-30) mmol/L Anion Gap 12 (4-12) mmol/L BUN 23 H (9-20) mg/dL Creatinine 1.12 (0.7-1.3) mg/dL Estim Creat Clear Calc 72 ml/min Estimated GFR > 60 (59 - ) Glucose 118 H (65-110) mg/dL Calcium 8.5 (8.4-10.2) mg/dL Total Bilirubin 1.3 (0.2-1.3) mg/dL AST 30 (17-59) U/L ALT 33 (6-50) U/L Alkaline Phosphatase 71 (38-126) U/L Troponin I < 0.012 (0.000-0.034) ng/mL Total Protein 7.0 (6.3-8.2) g/dL Albumin 4.0 (3.5-5.1) g/dL Urine Color Yellow (Yellow) Urine Appearance Clear (Clear) Urine pH 5.0 (5.0-9.0) Ur Specific [place] 1.027 (1.001-1.035) Urine Protein Trace (Negative) mg/dL Urine Glucose (UA) Negative (Negative) mg/dL Urine Ketones Trace H (Negative) mg/dL Ur Blood (Man) Negative (Negative) Urine Nitrate Negative (Negative) Urine Bilirubin Negative (Negative) Urine Urobilinogen 0.2 (<2.0) mg/dL Leukocyte Esterase Rfl Negative (Negative) STANISLAW/UL Urine RBC 0-2 (0-2) /hpf Urine WBC 0-5 (0-3) /hpf Ur Squamous Epith Cells None seen (Few) /hpf Urine Bacteria None seen /hpf Urine Casts 0-2 Imaging Data Attestation: I personally reviewed and interpreted this imaging study as follows: My impression: Impressions Head CT 07/03/24 18:07 Impression: No acute intracranial hemorrhage or suspicious mass effect. Inflammatory sinus disease. Discharge Plan Discharge Clinical Impression: Headache, migraine Patient Disposition: Home, Self-Care Condition: Stable Instructions: Antibiotic Form, Migraine Headache (ED), Acute Headache (ED) Additional Instructions: Given your headache resolution after migraine cocktail I believe that was the likely cause severe headache. The skin was reassuring as well as her laboratory assessments. No urinary tract infection. Follow-up with regular primary care provider. Return with any new or worsening concerns at any time. Patient Language: Romansh Prescriptions: No Action txnqgyam-gksa-htyof-oreg-capry 100 mg-150 mg- 50 mg-150 mg capsule 1 cap PO DAILY Ozempic 2 mg/dose (8 mg/3 mL) pen injector 2 mg subcut WEEKLY Qty: 9 1RF Rx Instructions: Please D?C the Ozempic 1mg. Thank you pyridoxine (vitamin B6) 100 mg tablet 100 mg PO DAILY [facility] omega-3 fatty acids-fish oil [Fish Oil] 360-1,200 mg capsule 1 cap PO DAILY naproxen sodium [Aleve] 220 mg capsule 220 mg PO BID PRN triamcinolone acetonide 10 mg/mL suspension 20 mg intra-articular ONCE Qty: 2 0RF lidocaine (PF) 10 mg/mL (1 %) solution 40 mg intra-articular ONCE Qty: 4 0RF pravastatin 40 mg tablet See Rx Instructions .ROUTE .COMPLEX Qty: 90 1RF Dose Instruction: TAKE 1 TABLET BY MOUTH DAILY Rx Instructions: TAKE 1 TABLET BY MOUTH DAILY omeprazole 40 mg capsule,delayed release(DR/EC) See Rx Instructions .ROUTE .COMPLEX Qty: 180 1RF Dose Instruction: TAKE 1 CAPSULE BY MOUTH TWICE DAILY Rx Instructions: TAKE 1 CAPSULE BY MOUTH TWICE DAILY meloxicam 15 mg tablet See Rx Instructions .ROUTE .COMPLEX Qty: 30 2RF Dose Instruction: TAKE 1 TABLET BY MOUTH AT BEDTIME Rx Instructions: TAKE 1 TABLET BY MOUTH AT BEDTIME amlodipine-valsartan 10-160 mg tablet See Rx Instructions .ROUTE .COMPLEX Qty: 90 1RF Dose Instruction: TAKE 1 TABLET BY MOUTH DAILY Rx Instructions: TAKE 1 TABLET BY MOUTH DAILY zolpidem 10 mg tablet 10 mg PO QHS Qty: 30 0RF Follow-up/Referrals: Anshul Mason MD [Primary Care Provider] - Time of Disposition: 22:52
[2024-07-03 21:06] LABS: Add Urine Microscopic? YES; Appearance Urine Clear (Clear); Bacteria Urine None Seen /hpf; Bilirubin Urine Negative (Negative); Blood Urine Negative (Negative); Color Urine Yellow (Yellow); Glucose Urine UA Negative (Negative); Ketones Urine Trace mg/dL (Negative); Leukocyte Esterase Ur Negative LEU/UL (Negative); Nitrate Urine Negative (Negative); Non Pathogenic Casts 0-2; Protein Urine Trace mg/dL (Negative); RBC Urine 0-2 /hpf (0-2); Specific Grav Ur 1.027 (1.001-1.035); Squamous Epithelial Cell Urine None Seen /hpf (Few); Urobilinogen Urine 0.2 mg/dL (<2.0); WBC Urine 0-5 /hpf (0-3)
[2024-07-03] MEDS: diphenhydrAMINE HCl INJ 50 MG/ML VIAL 25 MG IV PUSH (21:24)
[2024-07-03] MEDS: PROCHLORPERAZINE EDISYLATE 10 MG/2 ML VIAL IV PUSH (21:25)
[2024-07-03] MEDS: SODIUM CHLORIDE 0.9% IV 1,000 ML 999 ML IV CONT (21:25)
[2024-07-03] MEDS: KETOROLAC 15 MG/ML VIAL (*BKC) IV PUSH (21:25)
[2024-07-03] MEDS: diphenhydrAMINE HCl INJ 50 MG/ML VIAL (22:29)
[2024-07-03 23:05] VITALS: BP 142/78; PULSE 86; RESP 17; TEMP 36.8; O2SAT 99
== END 2024-07-03 23:06 | disposition home or self-care (01) ==
PROVIDERS: Nurse Practitioner Family; Emergency Provider Student in an Organized Health Care Education/Training Program; PCP Internal Medicine
DX: G43.909 Migraine, unspecified, not intractable, without status migrainosus (principal); I10 Essential (primary) hypertension; Z87.442 Personal history of urinary calculi; K21.9 Gastro-esophageal reflux disease without esophagitis
CPT/HCPCS: 36415; 70450; 80053; 81001; 84484; 85025; 93005; 96361; 96374; 96375; 99284; J0780; J1200; J1885; J7030

== ENCOUNTER 2024-07-26 12:49 | Outpatient (CLI) | payer MEDICARE, SELFPAY ==
--- NOTE | ~2024-07-26 | MR_ITS ---
EXAMINATION: MR brain/brain stem wo/w con DATE: 07/26/2024 13:45 INDICATION: Headache, unspecified. TECHNIQUE: Magnetic resonance imaging (MRI) of the brain and brainstem was performed without and with 20 mL MultiHance intravenous contrast. COMPARISON: Head CT 07/03/2024 FINDINGS: There are scattered areas of nonspecific increased T2-weighted signal intensity in the cere bral white matter. There is no intracranial hemorrhage, acute infarction, or abnormal intracranial ma ss lesion. The ventricles are normal in size. There are likely changes of left ocular lens replacemen t surgery. There is mucosal thickening in the paranasal sinuses including near complete opacification of sphenoid sinus. There is dependent fluid in left maxillary sinus. There is a small left mastoid e ffusion. IMPRESSION: 1. Mild nonspecific cerebral white matter disease, which likely represents chronic small vessel ische wilfrid disease. 2. Chronic sphenoid sinusitis. Reviewed, dictated and finalized at location A. 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 Mild nonspecific cerebral white matter disease, which likely represents cash posting representative shawn small vessel ischemic disease. 2. Chronic sphenoid sinusitis.
== END 2024-07-26 12:50 | disposition home or self-care (01) ==
LOC: MICIMG 12:51
PROVIDERS: PCP Internal Medicine; Visit Provider Internal Medicine
DX: R90.82 White matter disease, unspecified (principal); J32.3 Chronic sphenoidal sinusitis; R51.9 Headache, unspecified; R41.89 Other symptoms and signs involving cognitive functions and awareness; M54.2 Cervicalgia
CPT/HCPCS: 70553; A9577

== ENCOUNTER 2025-01-20 22:48 | Inpatient (IN) | payer MEDICARE, SELFPAY ==
--- NOTE | ~2025-01-20 | XR_ITS ---
EXAMINATION: XR catheter cholangiogram DATE: 02/05/2025 09:01 INDICATION: Evaluate cystic and common bile ducts TECHNIQUE: A highway patrol pilot AP view of the abdomen was obtained. Multiple fluoroscopic images of the right upper quadrant were obtained during injection of 50 mL Omnipaque 240 water-soluble contrast into the percutaneous cholecystostomy tube. The tube was subsequently flushed with 10 mL sterile saline. A total of 12 fluoroscopic images were obtained. The amount of fluoroscopy time used during this procedure was 0.2 minutes. Total DAP was 13.792 mGycm^2. COMPARISON: CT dated 02/02/2025 FINDINGS: [employer] image demonstrates a right upper quadrant cholecystostomy tube with loops formed over the expected position of the gallbladder. Subsequent images demonstrate a loop within the lumen of the gallbladder with injected contrast delineating irregular lucent filling defects which could represent gallstones, sludge or debris. Contrast is seen extending into the proximal cystic duct however the same time there is leakage of a large amount of contrast across the medial wall of the gallbladder. Contrast injection was terminated at this time prior to opacification of the common bile duct. IMPRESSION: 1. Defect in the medial wall of the gallbladder resulting in extraluminal spillage of contrast which extends towards the region of the previous noted small abscess cavity located between the gallbladder fundus, the inferior margin of the left hepatic lobe and the greater curvature of the antrum of the stomach on prior CT. 2. Contrast extends into the cystic duct but no evident contrast within the common bile duct. Evaluation is however limited as contrast injection was terminated prematurely due to the contemporaneous extraluminal leakage of contrast. Reviewed, dictated and finalized at location A. IMPRESSION: 1. Defect in the medial wall of the gallbladder resulting in extraluminal spill age of contrast which extends towards the region of the previous noted small ab scess cavity located between the gallbladder fundus, the inferior margin of the left hepatic lobe and the greater curvature of the antrum of the stomach on pr ior CT. 2. Contrast extends into the cystic duct but no evident contrast within the com mon bile duct. Evaluation is however limited as contrast injection was terminat ed prematurely due to the contemporaneous extraluminal leakage of contrast.
--- NOTE | ~2025-01-20 | CT_ITS ---
EXAMINATION: CT abdomen pelvis wo con, 02/02/2025 13:28 CDT HISTORY: RISING WBC, LFT's; hx cholecystostomy, cholecystit COMPARISON: Comparison 01/30/2025. TECHNIQUE: CT scan of the abdomen and pelvis was performed without IV contrast. One or more of the following dose reduction techniques were used: automated exposure control, adjustment of the mA and/or kV according to patient size, use of iterative reconstruction technique. Unless otherwise stated, incidental findings do not require dedicated follow up imaging FINDINGS: CT abdomen: LUNG BASES: Small left basilar infiltrate with trace effusion. Moderate right basilar infiltrate and small effusion, correlate for symptoms of bronchopneumonia. LIVER: Subcentimeter probable liver cysts. SPLEEN: Punctate calcified splenic granulomas.. KIDNEYS: Right Kidney: Unremarkable. No calculi. No hydronephrosis. Left Kidney: Left kidney 2 mm renal calculi, no hydronephrosis. ADRENAL GLANDS: Unremarkable. PANCREAS: Mild atrophy of the pancreas. GALLBLADDER/BILIARY: Cholecystostomy tube in the gallbladder, the gallbladder appears distended. There is circumferential thickening of the gallbladder wall. STOMACH AND ESOPHAGUS: There is thickening of the distal gastric wall along the greater curvature with stranding noted in the perigastric tissues. Adjacent to the distal stomach along the greater curvature there is a small focus of fluid measuring 2.5 x 2.5 cm. BOWEL/MESENTERY: Moderate fecal content. No colitis or diverticulitis. Appendix is normal. There is stranding in the mesentery in the right upper quadrant. ADENOPATHY/RETROPERITONEUM: No lymphadenopathy. AORTA/VASCULATURE: Normal caliber aorta. FREE FLUID OR FREE AIR: Small amount of free fluid in the pelvis.. CT pelvis: SOLID ORGANS/REPRODUCTIVE: The prostate is enlarged, correlate with PSA. BLADDER: The bladder is distended. OSSEOUS STRUCTURES: No sclerotic or lytic lesions. Moderate degenerative changes of the lumbar spine. OVERLYING SOFT TISSUES: Unremarkable. IMPRESSION: 1. Cholecystostomy tube within the gallbladder with probable cholecystitis. There is a small amount of pericholecystic fluid noted with a small loculated focus adjacent to the distal stomach with probable reactive thickening of the gastric wall in this location, distinction from an ulcerative process within the stomach itself however is not excluded. Repeat exam with intravenous and oral contrast is suggested. The findings appear improved compared to the previous study. 2. Incidental findings above Reviewed, dictated and finalized at location A. IMPRESSION: 1. Cholecystostomy tube within the gallbladder with probable cholecystitis. The re is a small amount of pericholecystic fluid noted with a small loculated focu s adjacent to the distal stomach with probable reactive thickening of the gastr ic wall in this location, distinction from an ulcerative process within the sto mach itself however is not excluded. Repeat exam with intravenous and oral cont rast is suggested. The findings appear improved compared to the previous study. 2. Incidental findings above
--- NOTE | ~2025-01-20 | CT_ITS ---
EXAMINATION: CT abdomen w con DATE: 01/30/2025 13:01 INDICATION: Increasing leukocytosis post cholecystostomy tube placement for acute cholecystitis. TECHNIQUE: Computed tomography (CT) of the abdomen and pelvis was performed with 100 mL Omnipaque-350 intravenous contrast. Automated exposure control and iterative reconstruction technique were employed. The dose-length product was 938.35 mGy-cm. COMPARISON: CT dated 01/24/2025 FINDINGS: Small right and tiny left posterior layering pleural effusions. There is a region of consolidation in the bilateral lower lobes more prominent on the right. There is some volume loss in the bilateral lower lobes with posterior displacement of the major fissures and with air bronchograms in the right lower lobe consolidation indicating bronchovascular crowding and which along with the relatively homogeneous enhancement of the region of consolidation would favor atelectasis over pneumonia. There is additional basilar atelectasis in the right middle lobe. Heart size is normal. Small amount of atherosclerotic coronary artery calcium. No pericardial effusion. A few calcified nodules in the atelectatic right lower lobe along with calcified right hilar and mediastinal lymph nodes consistent with old granulomatous disease. Cholecystostomy tube which extends via an intercostal and transhepatic approach with loop formed in expected position within the gallbladder. There is pericholecystic inflammatory stranding consistent with acute cholecystitis. There are Defects in the gallbladder wall both along the gallbladder fossa and along the medial wall of the body of the gallbladder suggesting chronic cholecystitis. There is a 4.4 x 2.8 x 2.1 cm fluid collection extending along the inferior margin of the left hepatic lobe between the gallbladder and the gastric antrum where there is some adjacent anterolateral wall thickening. This fluid collection is decrease in size when compared with CT from 01/24/2025 at which time it measured 5.1 x 3.8 by at least 2.9 cm. There is also some additional likely reactive wall thickening at the hepatic flexure the colon as closest approach to the gallbladder. Mild central periportal edema in the liver. Minimal perihepatic ascites. Spleen, pancreas, bilateral adrenal glands and kidneys are normal. Remainder the bowels are unremarkable with no obstruction. Normal appendix. No pathologically enlarged abdominal no lymphadenopathy. Moderate lower thoracic and severe lumbar spondylosis. IMPRESSION: 1. Likely acute or chronic cholecystitis with percutaneous cholecystostomy tube in expected position. 2. Decrease in size of a 4.4 x 2.8 x 2.1 cm fluid collection positioned between the gallbladder, the gastric antrum and the inferior aspect of the left hepatic lobe which appears to communicate with the gallbladder through one of a couple defects in the wall of the gallbladder. 3. Small right and very small left pleural effusions with consolidation the dependent lower lobes, right greater than left with appearance favoring atelectasis over pneumonia. 4. Mild central periportal edema and minimal perihepatic ascites. 5. Wall thickening at the gastric antrum and at the hepatic flexure the colon which likely reactive related to the adjacent acute cholecystitis. Reviewed, dictated and finalized at location A. IMPRESSION: 1. Likely acute or chronic cholecystitis with percutaneous cholecystostomy tube in expected position. 2. Decrease in size of a 4.4 x 2.8 x 2.1 cm fluid collection positioned between the gallbladder, the gastric antrum and the inferior aspect of the left hepati c lobe which appears to communicate with the gallbladder through one of a coupl e defects in the wall of the gallbladder. 3. Small right and very small left pleural effusions with consolidation the dep endent lower lobes, right greater than left with appearance favoring atelectasi s over pneumonia. 4. Mild central periportal edema and minimal perihepatic ascites. 5. Wall thickening at the gastric antrum and at the hepatic flexure the colon w hich likely reactive related to the adjacent acute cholecystitis.
--- NOTE | ~2025-01-20 | XR_ITS ---
CHEST RADIOGRAPH CLINICAL HISTORY: dyspnea . COMPARISON: 01/22/2025 and 01/21/2025 TECHNIQUE: Single portable view of the chest. FINDINGS The cardiomediastinal silhouette is enlarged, unchanged. Redemonstration of a left-sided pleural effusion, with adjacent compressive atelectasis. Retrocardiac density is also noted, possibly corresponding to round atelectasis, seen on CT examination performed 01/20/2025. Increased interstitial markings are identified bilaterally, findings suggesting moderate pulmonary vascular congestion. Platelike atelectasis is redemonstrated within the right lung base, unchanged from prior. The remainder of the lungs are clear. IMPRESSION: Left-sided pleural effusion with adjacent compressive atelectasis moderate pulmonary vascular congestion. Redemonstration platelike atelectasis within the right lung base Reviewed, dictated and finalized at location A. IMPRESSION: Left-sided pleural effusion with adjacent compressive atelectasis moderate pulm onary vascular congestion. Redemonstration platelike atelectasis within the right lung base
--- NOTE | ~2025-01-20 | NM_ITS ---
EXAMINATION: [id number] DATE: 01/23/2025 09:59 INDICATION: Possible cholecystitis. Hyperbilirubinemia and sepsis. COMPARISON: CT dated 01/20/2025 and ultrasound dated 01/21/2025 TECHNIQUE: 5 mCi Tc-99m mebrofenin (Choletec) was administered intravenously. Scintigraphic images of the abdomen were obtained for one hour. 2 mg morphine was administered by slow intravenous infusion, and imaging was continued for 30 minutes. FINDINGS: There is normal clearance of radiotracer from the blood pool. There is homogeneous tracer uptake by the liver. Activity progresses to the common bile duct and small bowel by 25 minutes. There is progressive accumulation of activity in the bowel throughout the subsequent imaging but without evident gal lbladder activity which is consistent with acute cholecystitis. IMPRESSION: 1. Nonvisualization of the gallbladder and the 30 minutes following morphine administration consistent with acute cholecystitis. Reviewed, dictated and finalized at location A. IMPRESSION: 1. Nonvisualization of the gallbladder and the 30 minutes following morphine a dministration consistent with acute cholecystitis.
--- NOTE | ~2025-01-20 | CT_ITS ---
EXAMINATION: CT diagnostic chest wo con DATE: 01/24/2025 18:43 INDICATION: Pulmonary edema versus pneumonia TECHNIQUE: Computed tomography (CT) of the chest was performed without intravenous contrast. The dose-length product was 945.69 mGy-cm. Automated exposure control and iterative reconstruction technique were employed. COMPARISON: CT dated 01/20/2025 FINDINGS: There are calcified granulomas of the spleen. The pancreas, adrenal glands are unremarkable. There is a small nonobstructing left renal stone. Kidneys are only partially visualized. There is distention of the gallbladder with gallbladder wall thickening. There is been progression of surrounding pericholecystic phlegmonous change with a fluid collection adjacent to the gallbladder medially measuring 5.1 x 3.8 cm, suspicious for abscess, possibly involving the liver parenchyma. Small pleural effusions. Bilateral lower lobe airspace consolidation. No pneumothorax. No endobronchial lesions. IMPRESSION: 1. Bilateral lower lobe airspace consolidation which may represent pneumonia and/or atelectasis. 2: Dilated gallbladder with wall thickening, pericystic cholecystic phlegmonous change and possible associated abscess involving the margin of the liver. Findings compatible with acute cholecystitis with sequela. 3: Small pleural effusions. 4: Nonobstructive left nephrolithiasis. Reviewed, dictated and finalized at location O. IMPRESSION: 1. Bilateral lower lobe airspace consolidation which may represent pneumonia an d/or atelectasis. 2: Dilated gallbladder with wall thickening, pericystic cholecystic phlegmonou s change and possible associated abscess involving the margin of the liver. Fin dings compatible with acute cholecystitis with sequela. 3: Small pleural effusions. 4: Nonobstructive left nephrolithiasis.
--- NOTE | ~2025-01-20 | XR_ITS ---
XR chest 1V portable 01/22/2025 18:47 Indication: Shortness of breath Procedure: AP portable chest Comparison: 01/20/2025 Findings: Persistent bibasilar atelectasis/scarring unchanged. Stable cardiomediastinal silhouette. No significant interval change. No significant effusion or pneumothorax. No acute osseous abnormality. Impression: 1: Persistent bibasilar atelectasis/scarring without significant change. Reviewed, dictated and finalized at location A. Impression: 1: Persistent bibasilar atelectasis/scarring without significant change.
--- NOTE | ~2025-01-20 | XR_ITS ---
XR chest 1V portable 01/28/2025 08:23 Indication: Atelectasis. Effusion. Procedure: AP portable chest Comparison: 01/23/2025 Findings: There is subsegmental atelectasis left lower lung. There is persistent right basilar consolidation. Small right pleural effusion. No pneumothorax. No acute osseous abnormality. Impression: 1: Right basilar airspace disease may represent atelectasis or pneumonia. No significant change. 2: Subsegmental left basilar atelectasis. Reviewed, dictated and finalized at location O. Impression: 1: Right basilar airspace disease may represent atelectasis or pneumonia. No si gnificant change. 2: Subsegmental left basilar atelectasis.
--- NOTE | ~2025-01-20 | US_ITS ---
EXAMINATION: US perc cholecystostomy w imag DATE: 01/25/2025 13:58 INDICATION: Acute cholecystitis TECHNIQUE: The procedure including the risks and benefits was discussed with the patient. Risks discussed included bleeding including hemorrhage and bile peritonitis. Oral and written consent were obtained. The patient was confirmed to be receiving appropriate antibiotic coverage. The skin overlying the liver and gallbladder was prepped and draped in usual sterile fashion. Anesthetic was administered with 1% lidocaine subcutaneously. An 8.5 Fr catheter was inserted through liver parenchyma into the gallbladder by trocar technique. The metal stiffener and trocar needle were removed, and the pigtail tip was locked. Bile was aspirated and sent for culture. The catheter was stitched to the skin with suture. There were no immediate complications. FINDINGS: The gallbladder is dilated with wall thickening and dependently layering hypoechoic sludge, consistent with acute cholecystitis. Ultrasound images demonstrate the catheter within the gallbladder. 50 mL cloudy reddish- orange bile was aspirated. Final images show the formed pigtail catheter tip in the gallbladder. IMPRESSION: 1. Successful ultrasound-guided cholecystostomy tube placement. 2. 50 mL bile was sent for aerobic, anaerobic, and fungal cultures. 3. The catheter will be managed by Dr. Huang. A catheter cholangiogram may be performed not less than 48 hours after tube placement if clinically indicated to assess cystic duct patency. If cholecystectomy is not eventually performed and the infectious episode has resolved, the tube may be removed over a guidewire, preferably not less than 3 weeks after placement to allow time for a mature catheter tract to form to prevent bile leakage and peritonitis. Reviewed, dictated and finalized at location A. IMPRESSION: 1. Successful ultrasound-guided cholecystostomy tube placement. 2. 50 mL bile was sent for aerobic, anaerobic, and fungal cultures. 3. The catheter will be managed by Dr. Huang. A catheter cholangiogram may be pe rformed not less than 48 hours after tube placement if clinically indicated to assess cystic duct patency. If cholecystectomy is not eventually performed and the infectious episode has resolved, the tube may be removed over a guidewire, preferably not less than 3 weeks after placement to allow time for a mature ca theter tract to form to prevent bile leakage and peritonitis.
--- NOTE | ~2025-01-20 | XR_ITS ---
Exam: X-ray chest one view portable CLINICAL HISTORY: Worsening hypoxia. COMPARISON: Chest x-ray 01/20/2025 Correlation: CTA chest 01/20/2025 TECHNIQUE: A single portable AP upright frontal image of the chest was obtained. FINDINGS: Cardiomediastinal silhouette is enlarged, unchanged. No pneumothorax. No obvious pleural effusion. No free air under the diaphragm. Small to moderate-sized patchy opacities scattered throughout the mid and lower lungs are similar to the study from 01/20/2025. IMPRESSION: 1.Small to moderate-sized patchy opacities scattered throughout the mid and lower lungs are similar t o the study from 01/20/2025. The findings may be secondary to atelectasis or consolidations. Recommend follow-up to resolution to exclude an underlying mass. Reviewed, dictated and finalized at location A. IMPRESSION: 1.Small to moderate-sized patchy opacities scattered throughout the mid and low er lungs are similar to the study from 01/20/2025. The findings may be secondary to atelectasis or consolidations. Recommend follow-up to resolution to exclude an underlying mass.
--- NOTE | ~2025-01-20 | US_ITS ---
EXAM: ABDOMEN ULTRASOUND HISTORY: Hyperbilirubinemia, sepsis COMPARISON: Reference is made to a CT examination of the chest, abdomen and pelvis performed approxim ately 12 hours earlier. FINDINGS: LIVER: The liver is unremarkable in echogenicity and size The portal vein is patent, demonstrating hepatopedal flow. Trace perihepatic fluid adjacent to the left lobe of the liver GALLBLADDER: Layering sludge within the gallbladder which is distended. No pericholecystic fluid. Borderline wall thickening of the gallbladder measuring 3.6 mm. BILE DUCTS: Common bile duct measures 6.4 mm. PANCREAS: Limited evaluation of the pancreas secondary to overlying bowel gas IMPRESSION: Limited evaluation of the pancreas secondary to overlying bowel gas. Layering sludge within the distended gallbladder. Borderline gallbladder wall thickening without pericholecystic fluid. Trace surrounding inflammatory change on CT examination performed approximately 12 hours earlier with indeterminate findings on ultrasound examination. If clinical suspicion persists for acalculous cholecystitis, HIDA scan would provide additional infor mation. Reviewed, dictated and finalized at location A. IMPRESSION: Limited evaluation of the pancreas secondary to overlying bowel gas. Layering sludge within the distended gallbladder. Borderline gallbladder wall thickening without pericholecystic fluid. Trace surrounding inflammatory change on CT examination performed approximately 12 hours earlier with indeterminate findings on ultrasound examination. If clinical suspicion persists for acalculous cholecystitis, HIDA scan would pr ovide additional information.
--- NOTE | ~2025-01-20 | CT_ITS ---
Clinical Indication: Sepsis, hypoxia CT Scan of the Chest, Abdomen, and Pelvis with Contrast: Technique: Contiguous sections were acquired throughout the chest, abdomen, and pelvis after intraven ous administration of 100 cc of Omnipaque 350. Dose reduction technique was used on this scan by samy monterrosoing automated exposure control and iterative reconstruction technique. The dose-length product (DL P) was 2411.92 mGy-cm. Comparison: 11/04/2022 Findings: There is no evidence of any significant mediastinal, hilar or axillary lymphadenopathy. The mediastin al soft tissues appear normal. No evidence for pulmonary embolus. No aortic aneurysm or dissection se en. There is no evidence of pleural or pericardial effusion. There is bibasilar pulmonary edema and/or atelectatic change. No suspicious pulmonary nodule seen. The liver, spleen, pancreas, adrenals and kidneys are within normal limits. Gallbladder is distended, possible mild pericholecystic inflammatory change. No evidence of aortic aneurysm. No lymphadenopat hy. No bowel obstruction or bowel wall thickening. There is no evidence to suggest acute appendicitis. Urinary bladder is unremarkable. No pelvic mass seen. No ascites. Impression: Distended gallbladder with suspected mild pericholecystic inflammatory change, suspicious for acute c holecystitis. Correlate clinically. Consider ultrasound and/or HIDA scan for further evaluation as in dicated. Mild bibasilar pulmonary edema/atelectasis. Reviewed, dictated and finalized at [facility]. Impression: Distended gallbladder with suspected mild pericholecystic inflammatory change, suspicious for acute cholecystitis. Correlate clinically. Consider ultrasound a nd/or HIDA scan for further evaluation as indicated. Mild bibasilar pulmonary edema/atelectasis.
--- NOTE | ~2025-01-20 | XR_ITS ---
EXAM/PROCEDURE: XR chest 1V portable - 01/20/2025 23:35 CDT HISTORY: 74 years old Male with weakness TECHNIQUE: AP view(s) of the chest. COMPARISON: None available. FINDINGS: LUNGS/ PLEURA: Opacities in bilateral lung bases may represent atelectasis versus consolidation. Aspi ration cannot be excluded. No pleural effusions or pneumothorax. HEART/ MEDIASTINUM: Heart appears normal in size. BONES: No acute osseous abnormality. OTHER: Visualized upper abdomen is unremarkable. IMPRESSION: Opacities in bilateral lung bases may represent atelectasis versus consolidation. Aspiration cannot b e excluded. Clinical correlation is recommended. Short interval follow-up chest radiograph is recomme nded after appropriate clinical therapy to document resolution and/or stability. Reviewed, dictated and finalized at location A. IMPRESSION: Opacities in bilateral lung bases may represent atelectasis versus consolidatio n. Aspiration cannot be excluded. Clinical correlation is recommended. Short in terval follow-up chest radiograph is recommended after appropriate clinical the rapy to document resolution and/or stability.
[2025-01-20 22:47] VITALS: BP 151/137; PULSE 156; RESP 25; TEMP 37.9; O2SAT 91
--- NOTE | 2025-01-20 22:53 | ECG_ITS ---
Test Date: 2025-01-20 22:50:01 Measurements Intervals [place] Rate: 166 P: 0 NV: 0 QRS: -43 QRSD: 102 T: 99 QT: 278 QTc: 462 Interpretive Statements ATRIAL FIBRILLATION WITH RAPID VENTRICULAR RESPONSE WITH ABERRANT CONDUCTION OR VENTRICULAR PREMATURE COMPLEXES LEFT AXIS DEVIATION PATTERN CONSISTENT WITH PULMONARY DISEASE LEFT VENTRICULAR HYPERTROPHY WITH ST-T CHANGE BASELINE ARTIFACT- I, II, AVR, AVL ABNORMAL ECG Compared to ECG 07/03/2024 19:33:22 Sinus rhythm no longer present Electronically Signed On 01-21-2025 06:59:19 CDT by Celso Grady D.O.
--- NOTE | 2025-01-20 23:07 | ED.WEAKNESS ---
HPI - Weakness General Chief complaint: Weakness Stated complaint: Weakness x 2 days Time Seen by Provider: 01/20/25 22:53 History of Present Illness HPI Narrative: 74-year-old female with history of hypertension, hyperlipidemia, prediabetes. He presents for complaints of generalized weakness and rapid heart rate. Patient was found on his floor at his own household and he has been lying on the ground since 10:00 a.m. for the patient as he was feeling too weak to get up. Denies any cardiac history except hypertension. Denies any loss of consciousness. States he has been just feeling sick and weak. Denies any vomiting, diarrhea or constipation. Denies shortness of breath but visibly dyspneic and tachycardic. Patient appears in moderate distress placed in the room 10 for resuscitation and further evaluation. Patient is hypoxemic requiring oxygen, tachycardic, febrile and tachypneic. Suspect sepsis given the fever, no history of AFib, unclear onset of symptoms of AFib but potentially today as he states he was not feeling well just today but otherwise was in his normal state of health recently. No obvious traumatic injuries evident. Patient is awake alert oriented. Related Data Home Medications ?Medication ?Instructions ?Recorded ?Confirmed ?Last Taken ?Type Prevagen 10 mg BYMOUTH . daily 03/16/24 01/21/25 Unknown History omega-3 fatty acids-fish oil 360 1 cap PO DAILY 03/16/24 01/21/25 Unknown History mg-1,200 mg capsule (Fish Oil) pyridoxine (vitamin B6) 100 mg 100 mg PO DAILY 03/16/24 01/21/25 Unknown History tablet ascorbic acid (vitamin C) 500 mg 500 mg PO DAILY 07/30/24 01/21/25 01/20/25 History capsule thiamine HCl (vitamin B1) 100 mg 100 mg PO DAILY 07/30/24 01/21/25 Unknown History capsule Allergies Allergy/AdvReac Type Severity Reaction Status Date / Time No Known Allergies Allergy Verified 12/19/24 07:04 Review of Systems Review of Systems: As reviewed above in HPI FORMERLY [facility], [facility] Past Medical History Medical History Cellulitis Right ear pain Follow up Memory impairment Cervicalgia Headache Hypersomnolence Trigger finger Arthritis of right knee Fatigue URI (upper respiratory infection) Encounter for routine adult health examination without abnormal findings Gastroenteritis VALLE (dyspnea on exertion) Bilateral hand numbness Personal history of COVID-19 Benign essential hypertension Psoriasis Skin tag Stricture of esophagus Non-healing skin lesion Cold sore Loose stools Insomnia Kidney stone Left flank pain BMI 32.0-32.9,adult Hearing loss Pain in left knee DJD (degenerative joint disease) Colon cancer screening Vision changes Encounter for Medicare annual wellness exam BMI 33.0-33.9,adult Finger injury GERD (gastroesophageal reflux disease) Pre-diabetes Surgical History Surgical History 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 He lives by himself in [place]. 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 He is a lifetime nonsmoker. He drinks between 1-4 alcoholic beverages a month. He denies illicit substance use. Code status: Full code (patient would not want long-term ventilatory support) Surrogate decision makers: Shaunna (daughter) and son Smoking status: Never smoker Second hand tobacco smoke exposure: No Alcohol intake: current Drinks per week: 2 Alcohol use details: STATES 2-4 BEERS/WEEK Substance use: never Substance use type: does not use Lack of Transportation: No Lack of Food: Never True Current Housing: Decline to Answer Concerned About Future Housing: Decline to Answer Difficulty Paying Gas/Electric Bills: Decline to Answer Difficulty Paying for Meds: Decline to Answer Currently Unemployed: Decline to Answer Education: Decline to Answer Difficulty w/ Childcare or Family Care: Decline to Answer Living arrangements: alone Occupation/Education: retired Gender identity (if verbalized by the patient): Male Spiritual care concerns: No Agree to blood products: Yes Exam Narrative: GENERAL: Moderate respiratory distress, tachypneic, hypoxemic, requiring oxygen, febrile, tachycardic HEAD: Normocephalic EYES: PERRLA ENT: Nares clear, no rhinorrhea or epistaxis. Mucous membranes moist. NECK: Supple. CHEST: Coarse bibasilar breath sounds, tachypneic without retractions. No wheezing HEART: Tachycardic rate with an irregular rhythm. No murmur heard. Warm extremities ABDOMEN: Soft and nondistended, nontender, no peritonitis EXTREMITIES: Normal range of motion. No edema SKIN: Redness over the knees from lying on the ground but overall no rashes or lesions NEURO: No obvious focal deficits, awake alert oriented. Moving his extremities spontaneously Course Vital Signs Vital signs: Vital Signs Temperature 37.9 C H 01/20/25 22:47 Pulse Rate 156 H 01/20/25 22:47 Respiratory Rate 25 H 01/20/25 22:47 Blood Pressure 151/137 H 01/20/25 22:47 Pulse Oximetry 91 01/20/25 22:47 Oxygen Delivery Nasal Cannula 01/20/25 22:47 Oxygen Flow Rate 4 01/20/25 22:47 Temperature 36.8 C 01/21/25 03:25 Pulse Rate 107 H 01/21/25 03:25 Respiratory Rate 35 H 01/21/25 03:25 Blood Pressure 178/93 H 01/21/25 03:25 Pulse Oximetry 90 01/21/25 03:25 Oxygen Delivery Nasal Cannula 01/21/25 00:49 Oxygen Flow Rate 5 01/21/25 00:49 MDM - Weakness MDM Narrative Medical decision making narrative: 74-year-old female with history of hypertension, hyperlipidemia, prediabetes. He presents for complaints of generalized weakness and rapid heart rate. Patient was found on his floor at his own household and he has been lying on the ground since 10:00 a.m. for the patient as he was feeling too weak to get up. Denies any cardiac history except hypertension. Denies any loss of consciousness. States he has been just feeling sick and weak. Denies any vomiting, diarrhea or constipation. Denies shortness of breath but visibly dyspneic and tachycardic. Patient appears in moderate distress placed in the room 10 for resuscitation and further evaluation. Patient is hypoxemic requiring oxygen, tachycardic, febrile and tachypneic. Suspect sepsis given the fever, no history of AFib, unclear onset of symptoms of AFib but potentially today as he states he was not feeling well just today but otherwise was in his normal state of health recently. No obvious traumatic injuries evident. Patient is awake alert oriented. Patient is in moderate distress, vital signs show stable blood pressure 151 systolic, tachycardic in the 180s to 190s with atrial fibrillation on the monitor and confirmed on EKG without any ST segment concerns. Tachypneic and febrile and hypoxemic requiring 4 L nasal cannula at this time. Suspicion for sepsis is the likely source of patient's etiology but other potential causes such as thromboembolic event from being on the ground for indeterminate amount of time such as PE is high. ACS, heart failure less likely he had a normal echocardiogram in the last few years with normal ejection fraction. No history of AFib or heart failure to the patient's knowledge. Patient was given septic bundle with 30 cc/kg bolus of normal saline, started empirically on vancomycin and cefepime and given Tylenol for his fever. Diltiazem given as well as a diltiazem drip to control his heart rate given the elevated heart rate in the 180s this is not sustainable but will also have to treat his underlying source of the potential dysrhythmia most likely infectious nature and pathology. CT angiography with PE protocol with abdomen pelvis critical added for further delineation of any other potential causes or source. Chest x-ray ordered into the examination room. Repeat EKGs and laboratory studies, blood cultures lactic acid obtained. Patient was initiated on a diltiazem drip and rapidly up titrated secondary to uncontrolled heart rates. He responded transiently to pushes of diltiazem 10 mg at a time and had decreased heart rate into the 110s to 120s with sustained blood pressures but quickly elticia back up into 150 sustained. Decision made to switch agents given max at 15 of diltiazem per hour plus pushes x3 without any success at controlling his rate. Amiodarone 150 mg bolus and infusion started and diltiazem discontinued. Patient has received his fluid resuscitation and CT scan showed multifocal pneumonia as well as colitis of the transverse colon. Patient is in rhabdomyolysis with acute renal injury with a CPK of over 10,000. Lactic acidosis of 2.2. Mildly elevated LFTs, troponin elevated likely secondary to demand ischemia rather than ACS. Likely type 2 NV given patient's clinical status and rapid heart rate. Added on Flagyl for coverage of potential aspiration multifocal pneumonia given that patient was down on the ground for the majority of the day and has rhabdomyolysis. Re-evaluated multiple times and he is clinically better and awake alert and able to answer questions and no longer as tachypneic. Patient is still requiring supplemental oxygen but his blood pressure is holding 120/86, heart rate bouncing between 120 and 140 currently getting amiodarone infusion. Awaiting discussion with hospitalist for admission. Spoke with the hospitalist regarding patient's presentation, AFib RVR and transition from diltiazem to amiodarone with improvement in symptoms. Patient is in acute rhabdomyolysis responding to fluid boluses. Maintenance fluids started at 150 cc/hour. Patient re-evaluated improving from a physical standpoint. Awake alert and answering questions. No longer as ill-appearing. Heart rate controlled in the low 100s, blood pressure holding in the 150s. Patient accepted to the IMU at this time. Medical Records Attestation: I reviewed the patient's medical records. Lab Data Attestation: I reviewed the patient's lab results. 01/21/25 06:02 01/21/25 06:02 Labs: Lab Results 01/20/25 01/21/25 01/21/25 Range/Units 23:01 00:13 02:28 WBC 15.9 H Cancelled (4.5-10.0) K/mm3 RBC 5.51 Cancelled (4.6-6.20) M/mm3 Hgb 17.6 Cancelled (14.0-18.0) g/dL Hct 49.8 Cancelled (42.0-52.0) % MCV 90.4 Cancelled (80-100) fl MCH 31.9 Cancelled (26-34) pg MCHC 35.3 Cancelled (32-36) g/dl RDW 12.9 Cancelled (11.5-14.5) % Plt Count 138 L Cancelled (150-375) k/mm3 MPV 10.7 H Cancelled (7.4-10.4) fl Immature Gran % (Auto) 1.4 H Cancelled (0-0.5) % Neut % (Auto) 85.3 H Cancelled (45.5-73.1) % Lymph % (Auto) 6.0 L Cancelled (18.3-44.2) % [place] % (Auto) 7.2 Cancelled (2.6-8.5) % Eos % (Auto) 0.0 Cancelled (0-4.4) % Baso % (Auto) 0.1 L Cancelled (0.2-1.2) % Lymph # (Auto) 0.96 Cancelled (0.9-3.2) K/mm3 [place] # (Auto) 1.2 H Cancelled (0.1-0.6) K/mm3 Eos # (Auto) 0.0 Cancelled (0-0.3) K/mm3 Baso # (Auto) 0.0 Cancelled (0.0-0.1) K/mm3 Abs Immat Gran (auto) 0.23 H Cancelled (0.00-0.031) K/mm3 Absolute Neuts (auto) 13.5 H Cancelled (1.3-6.7) K/mm3 Absolute Nucleated RBC 0.000 Cancelled (0.0-0.012) K/mm3 Nucleated RBC % 0.0 Cancelled (0.0-0.2) % % Immature Plt Fraction 3.1 Cancelled (0.9-11.2) % PT 15.1 H (11.1-14.7) Seconds INR 1.2 APTT 28.4 (22.3-36.8) Seconds Sodium 131 L (137-145) mmol/L Potassium 3.5 (3.4-5.0) mmol/L Chloride 100 (98-107) mmol/L Carbon Dioxide 20 L (22-30) mmol/L Anion Gap 11 (4-12) mmol/L BUN 29 H (9-20) mg/dL Creatinine 1.36 H (0.7-1.3) mg/dL Estim Creat Clear Calc 58 ml/min Estimated GFR 51 L (59 - ) Glucose 132 H (65-110) mg/dL Lactic Acid 2.2 H 1.5 (0.7-2.0) mmol/L Calcium 9.3 (8.4-10.2) mg/dL Total Bilirubin 5.5 H (0.2-1.3) mg/dL AST 210 H (17-59) U/L ALT 73 H (6-50) U/L Alkaline Phosphatase 89 (38-126) U/L Total Creatine Kinase 08881 H (55-170) U/L Troponin I 0.141 H* (0.000-0.034) ng/mL C-Reactive Protein 37.2 H (<1.0) mg/dL Total Protein 7.9 (6.3-8.2) g/dL Albumin 4.1 (3.5-5.1) g/dL Nasal MRSA (PCR) (NOT DETECTE) 01/21/25 Range/Units 02:41 WBC (4.5-10.0) K/mm3 RBC (4.6-6.20) M/mm3 Hgb (14.0-18.0) g/dL Hct (42.0-52.0) % MCV (80-100) fl MCH (26-34) pg MCHC (32-36) g/dl RDW (11.5-14.5) % Plt Count (150-375) k/mm3 MPV (7.4-10.4) fl Immature Gran % (Auto) (0-0.5) % Neut % (Auto) (45.5-73.1) % Lymph % (Auto) (18.3-44.2) % [place] % (Auto) (2.6-8.5) % Eos % (Auto) (0-4.4) % Baso % (Auto) (0.2-1.2) % Lymph # (Auto) (0.9-3.2) K/mm3 [place] # (Auto) (0.1-0.6) K/mm3 Eos # (Auto) (0-0.3) K/mm3 Baso # (Auto) (0.0-0.1) K/mm3 Abs Immat Gran (auto) (0.00-0.031) K/mm3 Absolute Neuts (auto) (1.3-6.7) K/mm3 Absolute Nucleated RBC (0.0-0.012) K/mm3 Nucleated RBC % (0.0-0.2) % % Immature Plt Fraction (0.9-11.2) % PT (11.1-14.7) Seconds INR APTT (22.3-36.8) Seconds Sodium (137-145) mmol/L Potassium (3.4-5.0) mmol/L Chloride (98-107) mmol/L Carbon Dioxide (22-30) mmol/L Anion Gap (4-12) mmol/L BUN (9-20) mg/dL Creatinine (0.7-1.3) mg/dL Estim Creat Clear Calc ml/min Estimated GFR (59 - ) Glucose (65-110) mg/dL Lactic Acid (0.7-2.0) mmol/L Calcium (8.4-10.2) mg/dL Total Bilirubin (0.2-1.3) mg/dL AST (17-59) U/L ALT (6-50) U/L Alkaline Phosphatase (38-126) U/L Total Creatine Kinase (55-170) U/L Troponin I (0.000-0.034) ng/mL C-Reactive Protein (<1.0) mg/dL Total Protein (6.3-8.2) g/dL Albumin (3.5-5.1) g/dL Nasal MRSA (PCR) Not detected (NOT DETECTE) Imaging Data Attestation: I personally reviewed and interpreted this imaging study as follows: My impression: Multifocal pneumonia, colitis Critical Care Time Critical Care Time Critical Care Time: Yes Total Critical Care Time: 105 Discharge Plan Discharge Clinical Impression: Severe sepsis, Atrial fibrillation with rapid ventricular response, Acute dehydration, Acute renal failure due to rhabdomyolysis, Colitis, Multifocal pneumonia Patient Disposition: Still a Patient Condition: Serious
[2025-01-20 23:13] VITALS: BP 112/63; PULSE 162
[2025-01-20] MEDS: dilTIAZem 100 MG/100 ML 100 MG/100 ML BAG IV CONT (23:13)
[2025-01-20] MEDS: SODIUM CHLORIDE 0.9% IV 1,000 ML 999 ML IV CONT ×2 (23:18)
[2025-01-20 23:27] LABS: Alanine Aminotransferase 73 U/L (6-50); Albumin Level 4.1 g/dL (3.5-5.1); Alkaline Phosphatase 89 U/L (38-126); Anion Gap 11 mmol/L (4-12); Aspartate Amino Transferase 210 U/L (17-59); Bilirubin,Total 5.5 mg/dL (0.2-1.3); Blood Urea Nitrogen 29 mg/dL (9-20); Calcium 9.3 mg/dL (8.4-10.2); Carbon Dioxide 20 mmol/L (22-30); Chloride 100 mmol/L (98-107); Estimated CRCL calculation 58 ml/min; Estimated Glomerular Filt Rate 51; Glucose 132 mg/dL (65-110); Potassium 3.5 mmol/L (3.4-5.0); Sodium 131 mmol/L (137-145); Total Protein 7.9 g/dL (6.3-8.2)
[2025-01-20] MEDS: ACETAMINOPHEN 500 MG TABLET 1000 MG PO (23:27)
[2025-01-20 23:29] VITALS: BP 121/92; PULSE 172
[2025-01-20 23:35] LABS: Hematocrit 49.8 % (42.0-52.0); Hemoglobin 17.6 g/dL (14.0-18.0); Immature Granulocyte Percent A 1.4 % (0-0.5); Immature Platelet Fraction Pct 3.1 % (0.9-11.2); Lymphocytes Absolute Auto 0.96 K/mm3 (0.9-3.2); Mean Corpuscular HGB Conc 35.3 g/dl (32-36); Mean Corpuscular Hemoglobin 31.9 pg (26-34); Mean Corpuscular Volume 90.4 fl (80-100); Nucleated Red Blood Cells Absolute Auto 0.000 K/mm3 (0.0-0.012); Nucleated Red Blood Cells Perc 0.0 % (0.0-0.2); Platelet Count Result 138 k/mm3 (150-375); Red Blood Count 5.51 M/mm3 (4.6-6.20); White Blood Count 15.9 K/mm3 (4.5-10.0)
[2025-01-20 23:39] LABS: INR 1.2; Prothrombin Time 15.1 Seconds (11.1-14.7)
[2025-01-20 23:40] LABS: Partial Thromboplastin Time 28.4 Seconds (22.3-36.8)
--- NOTE | 2025-01-20 23:40 | PC.NURSE ---
Pt taken to CT on monitor and stretcher
[2025-01-20 23:43] LABS: Troponin I 0.141 ng/mL (0.000-0.034)
[2025-01-21] VITALS (34 sets, daily range): BP systolic 95–178; BP diastolic 61–93; PULSE 80–158; RESP 18–35; TEMP 36.4–39.1; O2SAT 90–100; BMI 31.4
[2025-01-21 00:02] LABS: CRP 37.2 mg/dL (<1.0)
[2025-01-21] MEDS: HEPARIN SOD/D5W 100 UNITS/ML 25,000 UNITS/250 ML BAG 15 UNITS IV CONT ×2 (00:10→21:45)
[2025-01-21 00:16] LABS: Creatine Kinase 10409 U/L (55-170)
[2025-01-21] MEDS: CEFEPIME 2 GM in SODIUM CHLORIDE 0.9% IV 50 ML 100 ML IVPB (00:30)
[2025-01-21] MEDS: SODIUM CHLORIDE 0.9% IV 500 ML 999 ML IV CONT (00:53)
[2025-01-21] MEDS: SODIUM CHLORIDE 0.9% IV 1,000 ML 999 ML IV CONT (00:53)
[2025-01-21] MEDS: VANCOMYCIN 1,250 MG/NS 250 ML 1,250 MG/250 ML BAG 166.67 MG IVPB ×2 (01:13→03:13)
--- NOTE | 2025-01-21 03:23 | ADMGEN ---
This patient, Oleg Tay, was admitted to IMU Room 213-01. Patient/family oriented to hospital policies and general routines including ID bracelet, bed and alarms, visiting hours, pain management, procedures, bathroom and other care routines, personal items, smoking policy, room service/diet, and visiting hours. Information on how to activate the Rapid Response Team has been discussed. Patient/Family are encouraged to report perceived risks to care and to ask questions if they do not understand what they are told or what they should do.
[2025-01-21 04:00] LABS: MRSA (PCR) NOT DETECTED (NOT DETECTE)
[2025-01-21 04:03] LABS: Alveolar/Arterial O2 Gradient 170.5 mmHg; Carboxyhemoglobin 1.0 % THb (0-2.0); Fractional Inspired Oxygen 36 %; HCO3 ABG 19.1 mEq/l (22.0-26.0); Methemoglobin ABG 0.1 %THb (0-1.5); Oxygen Content ABG 21.2 %vol (16.0-22.0); Oxygen Saturation ABG 90.7 % (95.0-100.0); PCO2 ABG 27.2 mmHg (35.0-45.0); PO2 ABG 54.6 mmHg (80.0-100.0); PO2 FiO2 Ratio Arterial Blood 1.52 %; Reduced Hemoglobin 10.5 %THb (0-5.0)
[2025-01-21 04:23] LABS: Liters per Minute 4.0 LPM; Modified Allen's Test Pass; Site Drawn LEFT RADIAL
[2025-01-21 04:28] LABS: Add Urine Microscopic? YES; Appearance Urine Cloudy (Clear); Glucose Urine UA Negative (Negative); Leukocyte Esterase Ur Trace LEU/UL (Negative); Need Manual Microscopic Reviewed; Nitrate Urine Negative (Negative); Specific Grav Ur > 1.045 (1.001-1.035)
--- NOTE | 2025-01-21 04:29 | P.HP_ITS ---
H&P: HPI History of Present Illness Date/Time: 01/21/25 04:29 Chief Complaint: Found on the floor Narrative: 74-year-old male with a past medical history of mild cognitive impairment, chronic hearing loss, GERD, dyslipidemia essential hypertension and insomnia who presented to the ER from home after his daughter found him down on the floor. The patient's daughter provides the majority of the patient's history due to his condition. She states that the patient lives in his own home and is independent in all activities of daily living. Three days ago the patient had went to stay can [employer] and he called her after yet gotten home stating that he was feeling ill. He thought that he may need to come in for evaluation but he took some Pepto-Bismol and reported that his symptoms felt better. Is unclear if he may have been having diarrhea or just some nausea. The patient's daughter did not talk to him on Tuesday when she called him on Tuesday and could not get a hold of them she came over to check on him. She found him laying on the floor. The patient stated that he did not fall but he he was 2 weeks to get somewhere to sit down or lay down so he eased himself onto the floor. He was then unable to get up. Patient's daughter called EMS the patient was brought into the ER. On arrival to the ER patient was found to be febrile, tachycardic with heart rates in the 160s to 180s and in AFib. The patient does not have a prior history of AFib and had prior normal echocardiogram in 2022. At the time of my evaluation the patient was alert oriented person, place and month but was confused as to the year he thought it was 2021. He denies any head injury. He denies any chest pain or palpitations. He has not noticed any lower extremity swelling. When he arrived to the IMU the patient was unable to void and was complaining of lower abdominal pain. Subsequently a Armenta catheter was placed which demonstrated coke colored urine. Labs in the ER demonstrated the patient had rhabdomyolysis with a CK greater than 10,000 acute kidney injury and lactic acidosis. The patient received treatment for sepsis and CT demonstrated possible colitis and pneumonia. The patient was treated initially with Cardizem drip without improvement in his heart rate in subsequently was switched to amiodarone with some improvement. Review of Systems 2 Review of Systems: Review of systems limited due to the patient's clinical condition and chronic hearing loss. [facility] Past Medical History Medical History Erectile dysfunction Mixed hyperlipidemia Vitamin D deficiency Positional vertigo Memory impairment Hypersomnolence Trigger finger Bilateral hand numbness Benign essential hypertension Psoriasis Stricture of esophagus Insomnia Kidney stone Hearing loss DJD (degenerative joint disease) GERD (gastroesophageal reflux disease) Pre-diabetes Surgical History Surgical History Status post total left knee replacement 08/02/2022 Hx of arthroscopic knee surgery Hx of detached retina repair Family History Family History Father Family history of congestive heart failure Family history of cardiovascular disease Family history of heart disease in male family member before age 55 Social History Social History (Updated 01/22/25 @ 02:28 by Madai Carrero, DO) Social History: He has been since 2020. He lives by himself in [place] drives. 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 He is a lifetime nonsmoker. He drinks between 1-4 alcoholic beverages a month. He denies illicit substance use. Code status: Full code (patient would not want long-term ventilatory support) Surrogate decision makers: Shaunna (daughter) and son Smoking status: Never smoker Second hand tobacco smoke exposure: No Alcohol intake: current Drinks per week: 2 Alcohol use details: STATES 2-4 BEERS/WEEK Substance use: never Substance use type: does not use Lack of Transportation: No Lack of Food: Never True Current Housing: Decline to Answer Concerned About Future Housing: Decline to Answer Difficulty Paying Gas/Electric Bills: Decline to Answer Difficulty Paying for Meds: Decline to Answer Currently Unemployed: Decline to Answer Education: Decline to Answer Difficulty w/ Childcare or Family Care: Decline to Answer Living arrangements: alone Occupation/Education: retired Gender identity (if verbalized by the patient): Male Spiritual care concerns: No Agree to blood products: Yes Meds Home Medications and Allergies Home Medications ?Medication ?Instructions ?Recorded ?Confirmed ?Type Prevagen 10 mg BYMOUTH . daily 03/16/24 01/21/25 History omega-3 fatty acids-fish oil 360 1 cap PO DAILY 03/16/24 01/21/25 History mg-1,200 mg capsule (Fish Oil) pyridoxine (vitamin B6) 100 mg 100 mg PO DAILY 03/16/24 01/21/25 History tablet pravastatin 40 mg tablet See Rx Instructions .Route 07/24/24 01/21/25 Rx .COMPLEX #90 tabs ascorbic acid (vitamin C) 500 mg 500 mg PO DAILY 07/30/24 01/21/25 History capsule thiamine HCl (vitamin B1) 100 mg 100 mg PO DAILY 07/30/24 01/21/25 History capsule fluticasone propionate 50 2 spray intranasal BID #16 mL 11/28/24 01/21/25 Rx mcg/actuation nasal spray,suspension (Flonase Allergy Relief) meloxicam 15 mg tablet See Rx Instructions .Route 12/13/24 01/21/25 Rx .COMPLEX #30 tabs omeprazole 40 mg capsule,delayed See Rx Instructions .Route 12/13/24 01/21/25 Rx release .COMPLEX #180 caps valsartan 320 mg tablet 320 mg PO DAILY #90 tabs 12/13/24 01/21/25 Rx zolpidem 10 mg tablet 10 mg PO QHS #30 tabs 12/13/24 01/21/25 Rx donepezil 5 mg tablet 5 mg PO QHS #90 tabs 01/14/25 01/21/25 Rx Allergies Allergy/AdvReac Type Severity Reaction Status Date / Time No Known Allergies Allergy Verified 12/19/24 07:04 Vital Signs Vital Signs - 24 hr 01/20/25 22:47 01/20/25 23:13 01/20/25 23:29 Temperature 100.3 F H Pulse Rate 156 H 162 H 172 H Respiratory Rate 25 H Blood Pressure 151/137 H 112/63 121/92 H Pulse Oximetry 91 Oxygen Delivery Nasal Cannula Oxygen Flow Rate 4 01/21/25 00:20 01/21/25 00:35 01/21/25 00:47 Temperature Pulse Rate 158 H 153 H 126 H Respiratory Rate Blood Pressure 128/86 109/70 128/77 Pulse Oximetry Oxygen Delivery Oxygen Flow Rate 01/21/25 00:49 01/21/25 01:45 01/21/25 01:55 Temperature Pulse Rate 144 H 136 H Respiratory Rate Blood Pressure 95/61 L 120/82 Pulse Oximetry 90 Oxygen Delivery Nasal Cannula Oxygen Flow Rate 5 01/21/25 02:08 01/21/25 02:09 Temperature Pulse Rate 113 H 113 H Respiratory Rate Blood Pressure 120/71 Pulse Oximetry Oxygen Delivery Oxygen Flow Rate Exam 2 Narrative: Weight 115.8 kg BMI 31.1 Const: Other: Acutely ill-appearing, appears stated age, well-developed well-nourished HENMT: Other: Mucous membranes are dry, no oral pharyngeal erythema, head is normocephalic atraumatic Eyes: Other: Pupils are equal and reactive, mild scleral icterus, no conjunctival pallor, extraocular movements intact Neck: Other: No JVD, no lymphadenopathy Resp: Other: Marked tachypnea with respiratory rate in the mid 30s, accessory muscle use with abdominal respirations Cardio: Other: Irregularly irregular, tachycardic, 2+ bilateral radial pedal pulses, no JVD GI: Other: Markedly tender in the right upper quadrant area, abdomen was sent initially distended but on repeat evaluation after Armenta catheter lower abdomen is much softer, normoactive bowel sounds, no tympany : Other: Armenta catheter was placed was at bedside patient had turbid coke colored urine about 250 mL Skin: Other: Hot to touch, jaundice, 3-4 second cap refill Neuro: Other: Alert oriented to person, place and month confused as to the year thought the year was 2021 speech is clear, chronic hearing loss, no gross motor deficits noted on exam no facial asymmetry Extrem: Other: No clubbing, cyanosis or edema, moves all extremities equally, 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 Psych: Other: Appropriately anxious, otherwise pleasant and cooperative H&P: Results Labs Labs: Laboratory Tests 01/21/25 00:13 01/20/25 23:01 01/20/25 01/21/25 01/21/25 23:01 00:13 02:28 WBC 15.9 H Cancelled RBC 5.51 Cancelled Hgb 17.6 Cancelled Hct 49.8 Cancelled MCV 90.4 Cancelled MCH 31.9 Cancelled MCHC 35.3 Cancelled RDW 12.9 Cancelled Plt Count 138 L Cancelled MPV 10.7 H Cancelled Immature Gran % (Auto) 1.4 H Cancelled Neut % (Auto) 85.3 H Cancelled Lymph % (Auto) 6.0 L Cancelled [place] % (Auto) 7.2 Cancelled Eos % (Auto) 0.0 Cancelled Baso % (Auto) 0.1 L Cancelled Lymph # (Auto) 0.96 Cancelled [place] # (Auto) 1.2 H Cancelled Eos # (Auto) 0.0 Cancelled Baso # (Auto) 0.0 Cancelled Abs Immat Gran (auto) 0.23 H Cancelled Absolute Neuts (auto) 13.5 H Cancelled Absolute Nucleated RBC 0.000 Cancelled Nucleated RBC % 0.0 Cancelled % Immature Plt Fraction 3.1 Cancelled PT 15.1 H INR 1.2 APTT 28.4 Puncture Site ABG pH ABG pCO2 ABG pO2 ABG PO2/FiO2 Ratio ABG HCO3 ABG O2 Saturation ABG O2 Content ABG Base Excess A-a Gradient Oxyhemoglobin Carboxyhemoglobin Methemoglobin Reduced Hemoglobin Total Hemoglobin O2 Delivery Device O2 Liters/Min FiO2 Sodium 131 L Potassium 3.5 Chloride 100 Carbon Dioxide 20 L Anion Gap 11 BUN 29 H Creatinine 1.36 H Estim Creat Clear Calc 58 Estimated GFR 51 L Glucose 132 H Lactic Acid 2.2 H 1.5 Calcium 9.3 Total Bilirubin 5.5 H AST 210 H ALT 73 H Alkaline Phosphatase 89 Total Creatine Kinase 84419 H Troponin I 0.141 H* C-Reactive Protein 37.2 H Total Protein 7.9 Albumin 4.1 Urine Color Urine Appearance Urine pH Ur Specific [place] Urine Protein Urine Glucose (UA) Urine Ketones Ur Blood (Man) Urine Nitrate Urine Bilirubin Urine Urobilinogen Add Ur Microanalysis Leukocyte Esterase Rfl Urine RBC Urine WBC Ur Squamous Epith Cells Amorphous Sediment Urine Bacteria Urine Casts Nasal MRSA (PCR) 01/21/25 01/21/25 01/21/25 02:41 03:11 03:54 WBC RBC Hgb Hct MCV MCH MCHC RDW Plt Count MPV Immature Gran % (Auto) Neut % (Auto) Lymph % (Auto) [place] % (Auto) Eos % (Auto) Baso % (Auto) Lymph # (Auto) [place] # (Auto) Eos # (Auto) Baso # (Auto) Abs Immat Gran (auto) Absolute Neuts (auto) Absolute Nucleated RBC Nucleated RBC % % Immature Plt Fraction PT INR APTT Puncture Site Left radial ABG pH 7.464 H ABG pCO2 27.2 L ABG pO2 54.6 L ABG PO2/FiO2 Ratio 1.52 ABG HCO3 19.1 L ABG O2 Saturation 90.7 L ABG O2 Content 21.2 ABG Base Excess -2.8 A-a Gradient 170.5 Oxyhemoglobin 88.4 L Carboxyhemoglobin 1.0 Methemoglobin 0.1 Reduced Hemoglobin 10.5 H Total Hemoglobin 17.1 O2 Delivery Device Nasal cannula O2 Liters/Min 4.0 FiO2 36 Sodium Potassium Chloride Carbon Dioxide Anion Gap BUN Creatinine Estim Creat Clear Calc Estimated GFR Glucose Lactic Acid Calcium Total Bilirubin AST ALT Alkaline Phosphatase Total Creatine Kinase Troponin I C-Reactive Protein Total Protein Albumin Urine Color Dark yellow Urine Appearance Cloudy H Urine pH 5.5 Ur Specific [place] > 1.045 H Urine Protein 3+ H Urine Glucose (UA) Negative Urine Ketones Trace H Ur Blood (Man) 3+ H Urine Nitrate Negative Urine Bilirubin Negative Urine Urobilinogen 1.0 Add Ur Microanalysis Reviewed Leukocyte Esterase Rfl Trace H Urine RBC 6-10 H Urine WBC 0-5 Ur Squamous Epith Cells Occasional Amorphous Sediment Few H Urine Bacteria None seen Urine Casts 3-5 Nasal MRSA (PCR) Not detected All imaging and EKGs personally reviewed and interpreted. And unless stated otherwise agree with radiologic and cardiology interpretation. Assessment and Plan Assessment and plan (1) Severe sepsis: Code(s): A41.9 - Sepsis, unspecified organism; R65.20 - Severe sepsis without septic shock Status: Acute (2) Multifocal pneumonia: Code(s): J18.8 - Other pneumonia, unspecified organism Status: Acute (3) Colitis: Code(s): K52.9 - Noninfective gastroenteritis and colitis, unspecified Status: Acute (4) Acute renal failure due to rhabdomyolysis: Code(s): N17.9 - Acute kidney failure, unspecified; M62.82 - Rhabdomyolysis Status: Acute (5) Transaminitis: Status: Acute (6) Acute dehydration: Code(s): E86.0 - Dehydration Status: Acute (7) Atrial fibrillation with rapid ventricular response: Code(s): I48.91 - Unspecified atrial fibrillation Status: Acute (8) GERD (gastroesophageal reflux disease): Qualifiers: Esophagitis presence: esophagitis presence not specified Qualified Code(s): K21.9 - Gastro-esophageal reflux disease without esophagitis Code(s): K21.9 - Gastro-esophageal reflux disease without esophagitis Status: Acute (9) Elevated troponin: Code(s): R79.89 - Other specified abnormal findings of blood chemistry Status: Acute (10) Memory impairment: Code(s): R41.3 - Other amnesia Status: Acute Plan Patient meets criteria for severe sepsis with fever, tachycardia, tachypnea in the setting of pneumonia and colitis. Blood cultures 0 cultures are pending. Will check urine Legionella and pneumococcal antigen. Patient did receive vent. Antibiotic therapy with cefepime Flagyl and vancomycin in the ER. Will change antibiotic regimen to Zosyn and doxycycline. Patient is having some right upper quadrant pain will check right upper quadrant ultrasound to rule out acute cholecystitis. Although transaminitis and hyperbilirubinemia may in part be due to patient's rhabdomyolysis. Will continue IV fluid hydration and monitor strict I&O's. The patient was markedly tachypneic at the time of my evaluation ABG was obtained. The patient had some respiratory alkalosis. Likely in part to compensate for rhabdomyolysis however cannot rule out some component of fluid overload given AFib. Patient did have significant hypoxia on ABG. Order given for Airvo verses BiPAP depending on patient's response to treatment. Will check echocardiogram to further evaluate cardiac structure and function. Will repeat chest x-ray. Will decrease IV fluid rate down to 100 mL an hour and re- evaluate. Will insert Armenta catheter for monitoring strict I&O's. Patient does have elevated troponin likely secondary to demand ischemia from severe sepsis in new onset AFib. AFib has improved in control with amiodarone drip. With where he will may need to balance the need for fluids versus diuresis in this patient given his status. Acute myocardial infarction not likely. But will check 6 hour troponin. Patient was placed on Protonix for GI prophylaxis. The patient's home nephrotoxic medications will be placed on hold. 70 minute spent in critical care activities. Due to a high probability of clinically significant, life threatening deterioration, the patient required my highest level of preparedness to intervene emergently and I personally spent this critical care time directly and personally managing the patient. This critical care time included obtaining a history; examining the patient; pulse oximetry; ordering and review of studies; arranging urgent treatment with development of a management plan; evaluation of patient's response to treatment; frequent reassessment; and discussions with other providers. It was exclusive of separately billable procedures and treating other patients and teaching time. Please see Assessment and Plan section and the rest of the note for further information on patient assessment and treatment. Quality VTE Prophylaxis VTE prophylaxis: pharmacologic ordered (Heparin GGT per protocol) Hospitalist MIPS Advance Care Plan I have confirmed that the patient's Advanced Care Plan is present, code status is documented, or surrogate decision maker is listed in patient medical record.: Yes Medication Reconciliation I have utilized all available resources to obtain, update and review the patients current medications (includes all prescriptions, OTC, herbals, cannabis, and nutritional supplements).: Yes
[2025-01-21 06:15] LABS: Hematocrit 43.8 % (42.0-52.0); Hemoglobin 15.0 g/dL (14.0-18.0); Immature Granulocyte Percent A 0.7 % (0-0.5); Lymphocytes Absolute Auto 0.46 K/mm3 (0.9-3.2); Mean Corpuscular HGB Conc 34.2 g/dl (32-36); Mean Corpuscular Hemoglobin 31.7 pg (26-34); Mean Corpuscular Volume 92.6 fl (80-100); Nucleated Red Blood Cells Absolute Auto 0.000 K/mm3 (0.0-0.012); Nucleated Red Blood Cells Perc 0.0 % (0.0-0.2); Platelet Count Result 105 k/mm3 (150-375); Red Blood Count 4.73 M/mm3 (4.6-6.20); White Blood Count 11.5 K/mm3 (4.5-10.0)
[2025-01-21 06:27] LABS: Partial Thromboplastin Time 76.7 Seconds (22.3-36.8)
[2025-01-21 06:35] LABS: Alanine Aminotransferase 77 U/L (6-50); Albumin Level 3.2 g/dL (3.5-5.1); Alkaline Phosphatase 79 U/L (38-126); Anion Gap 9 mmol/L (4-12); Aspartate Amino Transferase 252 U/L (17-59); Bilirubin,Total 3.3 mg/dL (0.2-1.3); Blood Urea Nitrogen 30 mg/dL (9-20); Calcium 8.2 mg/dL (8.4-10.2); Carbon Dioxide 24 mmol/L (22-30); Chloride 102 mmol/L (98-107); Estimated CRCL calculation 52 ml/min; Estimated Glomerular Filt Rate 45; Glucose 122 mg/dL (65-110); Potassium 3.4 mmol/L (3.4-5.0); Sodium 135 mmol/L (137-145); Total Protein 6.3 g/dL (6.3-8.2)
[2025-01-21] MEDS: SODIUM CHLORIDE 0.9% IV 1,000 ML 150 ML IV CONT (06:41)
[2025-01-21] MEDS: metroNIDAZOLE 500 MG/ISO 100ML 500 MG/100 ML BAG 100 MG IVPB (06:45)
[2025-01-21] MEDS: PANTOPRAZOLE 40 MG TABLET PO ×2 (09:29→17:22)
[2025-01-21] MEDS: OMEGA 3 POLYUNSAT FATTY ACIDS 1 GM CAP PO (09:29)
[2025-01-21] MEDS: FLUTICASONE PROPIONATE 0.05% NA SPR 16 GM BTL (*BKC) 2 SPRAY NASAL (09:30)
[2025-01-21] MEDS: DOXYCYCLINE IV 100 MG in SODIUM CHLORIDE 0.9% IV 100 ML IVPB ×2 (09:30→20:25)
[2025-01-21] MEDS: ACETAMINOPHEN 325 MG TABLET 650 MG PO (09:30)
[2025-01-21 09:34] LABS: Troponin I 0.333 ng/mL (0.000-0.034)
--- NOTE | 2025-01-21 09:46 | P.CONCA_ITS ---
<Statement entered by Sonali Bryson MD - 01/25/25 10:46> The service was provided by the the nurse practitioner independently. i was available in the hospital in case I was needed Assessment and Plan Assessment and plan (1) Atrial fibrillation with rapid ventricular response: Code(s): I48.91 - Unspecified atrial fibrillation Status: Acute Assessment and Plan: Atrial fibrillation with rapid ventricular response in the setting of rhabdomyolysis, sepsis. This is a new diagnosis. He has converted to sinus rhythm. * Continue amiodarone until current bag is finished * Will start ToprolXL 25mg daily tomorrow * He has a CHADs2 Vasc score of 3 (age, HTN). Anticoagulation is indicated. He can be shifted from heparin to DOAC * Echo has been ordered and is pending * Continue telemetry for the time being (2) Elevated troponin: Code(s): R79.89 - Other specified abnormal findings of blood chemistry Status: Acute Assessment and Plan: 0.141, 0.333. He is not having any chest pain. Unclear why troponin levels were sampled given his presentation with a fall and inability to get up. His troponin levels are most likely elevated secondary to rhabdomyolysis and sepsis. Cannot rule out underlying coronary artery disease - outpatient stress testing would be appropriate. If his echo shows LV dysfunction or regional wall motion abnormalities then coronary angiogram can be pursued prior to discharge. (3) Benign essential hypertension: Code(s): I10 - Essential (primary) hypertension Status: Acute Assessment and Plan: Blood pressure at goal (4) Colitis: Code(s): K52.9 - Noninfective gastroenteritis and colitis, unspecified Status: Acute Assessment and Plan: Management per hospitalist (5) Multifocal pneumonia: Code(s): J18.8 - Other pneumonia, unspecified organism Status: Acute Assessment and Plan: Management per hospitalist. History of Present Illness History of Present Illness Consult date/time: 01/21/25 09:46 Requesting physician: Humberto Ware MD Consult reason: atrial fibrillation Reason For Visit: Rhabdomyolysis, AFib RVR, Dehydration, Colitis, Pn Narrative: Oleg Tay is a 74 year old man with no past cardiac history who presents to the hospital following a fall with prolonged down time. Cardiology is consulted for atrial fibrillation with rapid ventricular response. Patient does not have any known history of atrial fibrillation and denies feeling any palpitations, shortness of breath, or chest pain. He was placed on an amiodarone drip and is in sinus rhythm at this point. He is also on a heparin drip. He has no complaints at the time of my visit. Review of Systems 2 Review of Systems: All systems reviewed & are unremarkable except as noted in HPI and below PMFSH Past Medical History Medical History Erectile dysfunction Mixed hyperlipidemia Vitamin D deficiency Positional vertigo Memory impairment Hypersomnolence Trigger finger Bilateral hand numbness Benign essential hypertension Psoriasis Stricture of esophagus Insomnia Kidney stone Hearing loss DJD (degenerative joint disease) GERD (gastroesophageal reflux disease) Pre-diabetes Surgical History Surgical History 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 He lives by himself in [place]. 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 He is a lifetime nonsmoker. He drinks between 1-4 alcoholic beverages a month. He denies illicit substance use. Code status: Full code (patient would not want long-term ventilatory support) Surrogate decision makers: Shaunna (daughter) and son Smoking status: Never smoker Second hand tobacco smoke exposure: No Alcohol intake: current Drinks per week: 2 Alcohol use details: STATES 2-4 BEERS/WEEK Substance use: never Substance use type: does not use Lack of Transportation: No Lack of Food: Never True Current Housing: Decline to Answer Concerned About Future Housing: Decline to Answer Difficulty Paying Gas/Electric Bills: Decline to Answer Difficulty Paying for Meds: Decline to Answer Currently Unemployed: Decline to Answer Education: Decline to Answer Difficulty w/ Childcare or Family Care: Decline to Answer Living arrangements: alone Occupation/Education: retired Gender identity (if verbalized by the patient): Male Spiritual care concerns: No Agree to blood products: Yes Meds Home Medications and Allergies Home Medications ?Medication ?Instructions ?Recorded ?Confirmed ?Type Prevagen 10 mg BYMOUTH . daily 03/16/24 01/21/25 History omega-3 fatty acids-fish oil 360 1 cap PO DAILY 03/16/24 01/21/25 History mg-1,200 mg capsule (Fish Oil) pyridoxine (vitamin B6) 100 mg 100 mg PO DAILY 03/16/24 01/21/25 History tablet pravastatin 40 mg tablet See Rx Instructions .Route 07/24/24 01/21/25 Rx .COMPLEX #90 tabs ascorbic acid (vitamin C) 500 mg 500 mg PO DAILY 07/30/24 01/21/25 History capsule thiamine HCl (vitamin B1) 100 mg 100 mg PO DAILY 07/30/24 01/21/25 History capsule fluticasone propionate 50 2 spray intranasal BID #16 mL 11/28/24 01/21/25 Rx mcg/actuation nasal spray,suspension (Flonase Allergy Relief) meloxicam 15 mg tablet See Rx Instructions .Route 12/13/24 01/21/25 Rx .COMPLEX #30 tabs omeprazole 40 mg capsule,delayed See Rx Instructions .Route 12/13/24 01/21/25 Rx release .COMPLEX #180 caps valsartan 320 mg tablet 320 mg PO DAILY #90 tabs 12/13/24 01/21/25 Rx zolpidem 10 mg tablet 10 mg PO QHS #30 tabs 12/13/24 01/21/25 Rx donepezil 5 mg tablet 5 mg PO QHS #90 tabs 01/14/25 01/21/25 Rx Allergies Allergy/AdvReac Type Severity Reaction Status Date / Time No Known Allergies Allergy Verified 12/19/24 07:04 Vital Signs Vital Signs - 24 hr 01/20/25 22:47 01/20/25 23:13 01/20/25 23:29 Temperature 37.9 C H Pulse Rate 156 H 162 H 172 H Respiratory Rate 25 H Blood Pressure 151/137 H 112/63 121/92 H Pulse Oximetry 91 Oxygen Delivery Nasal Cannula Oxygen Flow Rate 4 Fraction of Inspired Oxygen 01/21/25 00:20 01/21/25 00:35 01/21/25 00:47 Temperature Pulse Rate 158 H 153 H 126 H Respiratory Rate Blood Pressure 128/86 109/70 128/77 Pulse Oximetry Oxygen Delivery Oxygen Flow Rate Fraction of Inspired Oxygen 01/21/25 00:49 01/21/25 01:45 01/21/25 01:55 Temperature Pulse Rate 144 H 136 H Respiratory Rate Blood Pressure 95/61 L 120/82 Pulse Oximetry 90 Oxygen Delivery Nasal Cannula Oxygen Flow Rate 5 Fraction of Inspired Oxygen 01/21/25 02:08 01/21/25 02:09 01/21/25 03:25 Temperature 36.8 C Pulse Rate 113 H 113 H 107 H Respiratory Rate 35 H Blood Pressure 120/71 178/93 H Pulse Oximetry 90 Oxygen Delivery Oxygen Flow Rate Fraction of Inspired Oxygen 01/21/25 04:30 01/21/25 06:00 01/21/25 06:20 Temperature Pulse Rate 107 H 110 H Respiratory Rate 24 H Blood Pressure Pulse Oximetry 100 100 Oxygen Delivery BiPAP High Flow Therapy with Na Oxygen Flow Rate 30 Fraction of Inspired Oxygen 60 01/21/25 07:52 01/21/25 08:00 Temperature 39.1 C H Pulse Rate 104 H 100 Respiratory Rate 34 H Blood Pressure 153/62 H Pulse Oximetry 94 Oxygen Delivery Oxygen Flow Rate Fraction of Inspired Oxygen Exam 2 Const: General: comfortable, no acute distress, alert and awake O rientation/consciousness: patient oriented x3 HENMT: Head: normal to inspection Eyes: General: appearance normal, both eyes and all related structures P upils: Equal, round and reactive pupils present Neck: Neck: normal visual inspection, supple and no JVD Carotids: normal carotid upstroke Resp: Effort & Inspection: normal respiratory effort Auscultation: clear to auscultation bilaterally Cardio: Rate: regular rate Rhythm: regular rhythm Heart sounds: S1 normal heart sound present, S2 normal heart sound present and no murmurs GI: Auscultation: normal bowel sounds Skin: General skin exam: normal color Neuro: General: patient oriented x3 Cranial nerves: Yes Equal, round and reactive pupils present Extrem: General: normal to inspection Other: no edema Psych: Appearance: grossly normal Mental Status: mental status grossly normal Results Labs and Meds 01/21/25 06:02 01/21/25 06:02 Lab results: Cardiac Enzymes 01/20/25 01/21/25 01/21/25 Range/Units 23:01 06:02 09:00 AST 210 H 252 H (17-59) U/L Troponin I 0.141 H* 0.333 H* (0.000-0.034) ng/mL Coagulation 01/20/25 01/21/25 Range/Units 23:01 06:01 PT 15.1 H (11.1-14.7) Seconds APTT 28.4 76.7 H (22.3-36.8) Seconds CBC 01/20/25 01/21/25 01/21/25 Range/Units 23:01 00:13 06:02 WBC 15.9 H Cancelled 11.5 H (4.5-10.0) K/mm3 RBC 5.51 Cancelled 4.73 (4.6-6.20) M/mm3 Hgb 17.6 Cancelled 15.0 (14.0-18.0) g/dL Hct 49.8 Cancelled 43.8 (42.0-52.0) % Plt Count 138 L Cancelled 105 L (150-375) k/mm3 Lymph # (Auto) 0.96 Cancelled 0.46 L (0.9-3.2) K/mm3 Arthur # (Auto) 1.2 H Cancelled 0.7 H (0.1-0.6) K/mm3 Eos # (Auto) 0.0 Cancelled 0.0 (0-0.3) K/mm3 Baso # (Auto) 0.0 Cancelled 0.0 (0.0-0.1) K/mm3 Comprehensive Metabolic Panel 01/20/25 01/21/25 Range/Units 23:01 06:02 Sodium 131 L 135 L (137-145) mmol/L Potassium 3.5 3.4 (3.4-5.0) mmol/L Chloride 100 102 (98-107) mmol/L Carbon Dioxide 20 L 24 (22-30) mmol/L BUN 29 H 30 H (9-20) mg/dL Creatinine 1.36 H 1.52 H (0.7-1.3) mg/dL Glucose 132 H 122 H (65-110) mg/dL Calcium 9.3 8.2 L (8.4-10.2) mg/dL AST 210 H 252 H (17-59) U/L ALT 73 H 77 H (6-50) U/L Alkaline Phosphatase 89 79 (38-126) U/L Total Protein 7.9 6.3 (6.3-8.2) g/dL Albumin 4.1 3.2 L (3.5-5.1) g/dL Intake and Output 01/20/25 01/21/25 01/21/25 23:59 07:59 15:59 Intake Total 1.3 4041.9 Output Total 600 Balance 1.3 3441.9 Intake: IV 1.3 4041.9 Amiodarone 150 mg/D5w 100 ml 100 150 mg In 100 ml @ 15 MG/MIN 600 mls/hr IV CONT .Q10M ONE Rx #:[id number] Heparin Sod/D5w 100 Units/ml 25 116 ,000 units In 250 ml @ 1,500 UNITS/HR 15 mls/hr IV CONT . [id number] DREAD Rx#:[id number] Sodium Chloride 0.9% IV 500 ml 3500 @ 999 mls/hr IV CONT .Q31M STA Rx#:[id number] dilTIAZem 100 MG/100 ML 100 mg 1.3 25.9 In 100 ml @ 5 MG/HR 5 mls/hr IV CONT .Q20H STA Rx#:[id number] Cefepime 2 gm In Sodium 50 Chloride 0.9% IV 50 ml @ 100 mls/hr IVPB ONCE STA Rx#: [id number] Vancomycin 1,250 mg/Ns 250 ml 1 250 ,250 mg In 250 ml @ 166.667 mls /hr IVPB ONCE ONE Rx#:[id number] Output: Catheter Urine 600 Urethral Catheter 600 Other: # Incontinent Voids 1 Patient Weight 01/21/25 23:59 Weight 117.1 kg
--- NOTE | 2025-01-21 10:44 | ECG_ITS ---
Test Date: 2025-01-21 11:07:34 Measurements Intervals [place] Rate: 80 P: -10 SC: 128 QRS: -44 QRSD: 111 T: -14 QT: 378 QTc: 439 Interpretive Statements SINUS RHYTHM INTRAVENTRICULAR CONDUCTION DELAY PATTERN CONSISTENT WITH PULMONARY DISEASE LEFT VENTRICULAR HYPERTROPHY MINIMAL Q WAVES- HIGH LATERAL LEADS BORDERLINE ECG Compared to ECG 01/20/2025 22:50:01 ATRIAL FIBRILLATION NO LONGER PRESENT Electronically Signed On 01-21-2025 11:31:18 CDT by Celso Grady D.O.
[2025-01-21 11:37] LABS: Influenza A QL RT-PCR Negative (Negative); Influenza B QL RT-PCR Negative (Negative); RSV RNA, RT-PCR Negative (Negative); SARS-CoV-2 RNA PCR Negative (Negative)
[2025-01-21] MEDS: LACTATED RINGERS 1,000 ML 100 ML IV CONT ×2 (11:54→20:25)
[2025-01-21] MEDS: PIPERACILLIN/TAZOBACTAM SOD 3.375 GM in SODIUM CHLORIDE 0.9% IV 50 ML 100 ML IVPB ×2 (12:05→17:22)
[2025-01-21 12:14] LABS: Partial Thromboplastin Time 69.5 Seconds (22.3-36.8)
--- NOTE | 2025-01-21 12:53 | PM.IMPN ---
Progress Note: A&P Assessment and Plan (1) Severe sepsis: Code(s): A41.9 - Sepsis, unspecified organism; R65.20 - Severe sepsis without septic shock Status: Acute Assessment and Plan: Meets sirs criteria:Fever,Tachycardia,Tachypnea Continue Zosyn and doxycycline Suspected source possible pneumonia Blood culture and urine culture pain Lactic acid coag covid,flu Monitor vitals hydrocotisone 200mg x 3 days,fludrocortisone (2) Multifocal pneumonia: Code(s): J18.8 - Other pneumonia, unspecified organism Status: Acute Assessment and Plan: Same as above (3) Colitis: Code(s): K52.9 - Noninfective gastroenteritis and colitis, unspecified Status: Acute Assessment and Plan: Continue Zosyn (4) Acute renal failure due to rhabdomyolysis: Code(s): N17.9 - Acute kidney failure, unspecified; M62.82 - Rhabdomyolysis Status: Acute Assessment and Plan: Due to fall Continue IV hydration Echocardiogram pending Monitor creatinine Monitor I and O (5) Transaminitis: Status: Acute Assessment and Plan: Right upper quadrant ultrasound Possibly due to rhabdomyolysis versus acute cholecystitis Monitor LFTs (6) Acute dehydration: Code(s): E86.0 - Dehydration Status: Acute Assessment and Plan: Continue IV fluids (7) Atrial fibrillation with rapid ventricular response: Code(s): I48.91 - Unspecified atrial fibrillation Status: Acute Assessment and Plan: Started on amiodarone Start metoprolol 25 mg p.o. q.d. for from tomorrow On heparin drip Will be transitioned to oral anticoagulant from tomorrow Pending echo (8) GERD (gastroesophageal reflux disease): Qualifiers: Esophagitis presence: esophagitis presence not specified Qualified Code(s): K21.9 - Gastro-esophageal reflux disease without esophagitis Code(s): K21.9 - Gastro-esophageal reflux disease without esophagitis Status: Acute (9) Elevated troponin: Code(s): R79.89 - Other specified abnormal findings of blood chemistry Status: Acute Assessment and Plan: Possibly due to rhabdomyolysis Cardiology on board (10) Memory impairment: Code(s): R41.3 - Other amnesia Status: Acute Plan Code status: Full code DVT prophylaxis: Heparin drip Subjective Date/time seen: 01/21/25 12:53 Interval history: Patient reports that currently he is doing well patient will be started on Toprol-XL 25 mg p.o. from tomorrow. Patient is currently on heparin and will be switched to oral anticoagulant tomorrow. Echocardiogram pending. Patient has been currently treated for rhabdomyolysis. Patient is currently on Vapotherm 35L , FiO2 50% Review of Systems Review of Systems: Review of systems limited due to the patient's clinical condition and chronic hearing loss. Objective Data Vital Signs Vital Signs: Vital Signs - 24 hr 01/20/25 22:47 01/20/25 23:13 01/20/25 23:29 Temperature 100.3 F H Pulse Rate 156 H 162 H 172 H Respiratory Rate 25 H Blood Pressure 151/137 H 112/63 121/92 H Pulse Oximetry 91 Oxygen Delivery Nasal Cannula Oxygen Flow Rate 4 Fraction of Inspired Oxygen 01/21/25 00:20 01/21/25 00:35 01/21/25 00:47 Temperature Pulse Rate 158 H 153 H 126 H Respiratory Rate Blood Pressure 128/86 109/70 128/77 Pulse Oximetry Oxygen Delivery Oxygen Flow Rate Fraction of Inspired Oxygen 01/21/25 00:49 01/21/25 01:45 01/21/25 01:55 Temperature Pulse Rate 144 H 136 H Respiratory Rate Blood Pressure 95/61 L 120/82 Pulse Oximetry 90 Oxygen Delivery Nasal Cannula Oxygen Flow Rate 5 Fraction of Inspired Oxygen 01/21/25 02:08 01/21/25 02:09 01/21/25 03:25 Temperature 98.3 F Pulse Rate 113 H 113 H 107 H Respiratory Rate 35 H Blood Pressure 120/71 178/93 H Pulse Oximetry 90 Oxygen Delivery Oxygen Flow Rate Fraction of Inspired Oxygen 01/21/25 04:30 01/21/25 06:00 01/21/25 06:20 Temperature Pulse Rate 107 H 110 H Respiratory Rate 24 H Blood Pressure Pulse Oximetry 100 100 Oxygen Delivery BiPAP High Flow Therapy with Na Oxygen Flow Rate 30 Fraction of Inspired Oxygen 60 01/21/25 07:52 01/21/25 08:00 01/21/25 09:50 Temperature 102.3 F H Pulse Rate 104 H 100 Respiratory Rate 34 H Blood Pressure 153/62 H Pulse Oximetry 94 93 Oxygen Delivery High Flow Therapy with Na Oxygen Flow Rate 30 Fraction of Inspired Oxygen 60 01/21/25 10:00 01/21/25 10:00 01/21/25 10:11 Temperature Pulse Rate 97 97 Respiratory Rate 34 H Blood Pressure 121/67 Pulse Oximetry 93 Oxygen Delivery High Flow Therapy with Na Oxygen Flow Rate 35 Fraction of Inspired Oxygen 55 01/21/25 10:19 01/21/25 12:00 01/21/25 12:00 Temperature 98 F Pulse Rate 89 81 Respiratory Rate 28 H Blood Pressure 134/83 Pulse Oximetry 92 93 Oxygen Delivery High Flow Therapy with Na Oxygen Flow Rate 35 Fraction of Inspired Oxygen 55 01/21/25 12:05 Temperature Pulse Rate 84 Respiratory Rate Blood Pressure Pulse Oximetry Oxygen Delivery Oxygen Flow Rate Fraction of Inspired Oxygen Intake/Output Intake/Output: Intake & Output 01/18/25 01/19/25 01/20/25 01/21/25 23:59 23:59 23:59 23:59 Intake Total 1.3 4181.7 Output Total 600 Balance 1.3 3581.7 Meds/Results Medications: Active Medications Generic Name Dose Route Start Last Admin Trade Name Freq PRN Reason Stop Dose Admin Acetaminophen 650 mg 01/21/25 02:19 01/21/25 09:30 Acetaminophen 325 Mg Tablet PO 650 mg Q4H PRN Administration Mild Pain (1-3) or Fever Fish Oil 1 gm 01/21/25 09:00 01/21/25 09:29 Beggs 3 Polyunsat Fatty Acids 1 Gm Cap PO 1 gm DAILY DREAD Administration Fluticasone Propionate 2 spray 01/21/25 09:00 01/21/25 09:30 Fluticasone Propionate 0.05% Na Spr 16 Gm Btl (*Bkc) NASAL 2 spray BID DREAD Administration Heparin Sodium (Porcine) 8,000 units 01/20/25 23:12 Heparin Sodium 5,000 Units/Ml Vial IV PUSH PRN PRN aPTT less than 55 seconds Heparin Sodium (Porcine) 4,000 units 01/20/25 23:12 01/21/25 12:31 Heparin Sodium 5,000 Units/Ml Vial IV PUSH 4,000 units PRN PRN Administration aPTT 55 - 70 seconds Heparin Sodium/Dextrose 25,000 units in 250 mls @ 17 mls/hr 01/20/25 23:15 01/21/25 12:32 Heparin Sodium/D5w 100 Units/Ml IV CONT 1,700 units/hr .[id number] DREAD 17 mls/hr Titration Protocol 1,700 UNITS/HR Amiodarone HCl/Dextrose 360 mg in 200 mls @ 16.667 mls/hr 01/21/25 08:00 01/21/25 12:05 Nexterone 360 Mg/D5w 200 Ml IV CONT 0.5 mg/min .Q12H DREAD 16.67 mls/hr Infusion 0.5 MG/MIN Doxycycline Hyclate 100 mg/ 100 mls @ 100 mls/hr 01/21/25 09:00 01/21/25 09:30 Sodium Chloride IVPB 01/25/25 21:59 100 mls/hr Q12HR DREAD Administration Piperacillin Sod/Tazobactam 50 mls @ 100 mls/hr 01/21/25 12:00 01/21/25 12:05 Sod 3.375 gm/ Sodium Chloride IVPB 100 mls/hr Q6HR DREAD Administration Lactated Ringer's 1,000 mls @ 100 mls/hr 01/21/25 09:30 01/21/25 11:54 Lr - Lactated Ringers Iv IV CONT 100 mls/hr .Q10H DREAD Administration Ondansetron HCl 4 mg 01/21/25 02:19 Ondansetron Inj 4 Mg/2 Ml Vial IV PUSH Q4H PRN Nausea Pantoprazole Sodium 40 mg 01/21/25 09:05 01/21/25 09:29 Pantoprazole 40 Mg Tablet PO 40 mg BID DREAD Administration Radiology Results: ITS Impressions Chest/Abdomen/Pelvis CTA 01/21/25 08:52 Impression: Distended gallbladder with suspected mild pericholecystic inflammatory change, suspicious for acute cholecystitis. Correlate clinically. Consider ultrasound and/or HIDA scan for further evaluation as indicated. Mild bibasilar pulmonary edema/atelectasis. Chest X-Ray 01/21/25 09:55 IMPRESSION: 1.Small to moderate-sized patchy opacities scattered throughout the mid and lower lungs are similar to the study from 01/20/2025. The findings may be secondary to atelectasis or consolidations. Recommend follow-up to resolution to exclude an underlying mass. Upper Quadrant Ultrasound 01/21/25 12:09 IMPRESSION: Limited evaluation of the pancreas secondary to overlying bowel gas. Layering sludge within the distended gallbladder. Borderline gallbladder wall thickening without pericholecystic fluid. Trace surrounding inflammatory change on CT examination performed approximately 12 hours earlier with indeterminate findings on ultrasound examination. If clinical suspicion persists for acalculous cholecystitis, HIDA scan would provide additional information. Labs Labs: Laboratory Results - last 24 hr 01/20/25 01/21/25 01/21/25 23:01 00:13 02:28 WBC 15.9 H Cancelled RBC 5.51 Cancelled Hgb 17.6 Cancelled Hct 49.8 Cancelled MCV 90.4 Cancelled MCH 31.9 Cancelled MCHC 35.3 Cancelled RDW 12.9 Cancelled Plt Count 138 L Cancelled MPV 10.7 H Cancelled Immature Gran % (Auto) 1.4 H Cancelled Neut % (Auto) 85.3 H Cancelled Lymph % (Auto) 6.0 L Cancelled [place] % (Auto) 7.2 Cancelled Eos % (Auto) 0.0 Cancelled Baso % (Auto) 0.1 L Cancelled Lymph # (Auto) 0.96 Cancelled [place] # (Auto) 1.2 H Cancelled Eos # (Auto) 0.0 Cancelled Baso # (Auto) 0.0 Cancelled Abs Immat Gran (auto) 0.23 H Cancelled Absolute Neuts (auto) 13.5 H Cancelled Absolute Nucleated RBC 0.000 Cancelled Nucleated RBC % 0.0 Cancelled % Immature Plt Fraction 3.1 Cancelled PT 15.1 H INR 1.2 APTT 28.4 Puncture Site ABG pH ABG pCO2 ABG pO2 ABG PO2/FiO2 Ratio ABG HCO3 ABG O2 Saturation ABG O2 Content ABG Base Excess A-a Gradient Oxyhemoglobin Carboxyhemoglobin Methemoglobin Reduced Hemoglobin Total Hemoglobin O2 Delivery Device O2 Liters/Min FiO2 Sodium 131 L Potassium 3.5 Chloride 100 Carbon Dioxide 20 L Anion Gap 11 BUN 29 H Creatinine 1.36 H Estim Creat Clear Calc 58 Estimated GFR 51 L Glucose 132 H Lactic Acid 2.2 H 1.5 Calcium 9.3 Total Bilirubin 5.5 H AST 210 H ALT 73 H Alkaline Phosphatase 89 Total Creatine Kinase 45648 H Troponin I 0.141 H* C-Reactive Protein 37.2 H Total Protein 7.9 Albumin 4.1 Urine Color Urine Appearance Urine pH Ur Specific [place] Urine Protein Urine Glucose (UA) Urine Ketones Ur Blood (Man) Urine Nitrate Urine Bilirubin Urine Urobilinogen Add Ur Microanalysis Leukocyte Esterase Rfl Urine RBC Urine WBC Ur Squamous Epith Cells Amorphous Sediment Urine Bacteria Urine Casts Nasal MRSA (PCR) Influenza A (RT-PCR) Influenza B (RT-PCR) RSV (RT-PCR) SARS-CoV-2 RNA (RT-PCR) 01/21/25 01/21/25 01/21/25 02:41 03:11 03:54 WBC RBC Hgb Hct MCV MCH MCHC RDW Plt Count MPV Immature Gran % (Auto) Neut % (Auto) Lymph % (Auto) [place] % (Auto) Eos % (Auto) Baso % (Auto) Lymph # (Auto) [place] # (Auto) Eos # (Auto) Baso # (Auto) Abs Immat Gran (auto) Absolute Neuts (auto) Absolute Nucleated RBC Nucleated RBC % % Immature Plt Fraction PT INR APTT Puncture Site Left radial ABG pH 7.464 H ABG pCO2 27.2 L ABG pO2 54.6 L ABG PO2/FiO2 Ratio 1.52 ABG HCO3 19.1 L ABG O2 Saturation 90.7 L ABG O2 Content 21.2 ABG Base Excess -2.8 A-a Gradient 170.5 Oxyhemoglobin 88.4 L Carboxyhemoglobin 1.0 Methemoglobin 0.1 Reduced Hemoglobin 10.5 H Total Hemoglobin 17.1 O2 Delivery Device Nasal cannula O2 Liters/Min 4.0 FiO2 36 Sodium Potassium Chloride Carbon Dioxide Anion Gap BUN Creatinine Estim Creat Clear Calc Estimated GFR Glucose Lactic Acid Calcium Total Bilirubin AST ALT Alkaline Phosphatase Total Creatine Kinase Troponin I C-Reactive Protein Total Protein Albumin Urine Color Dark yellow Urine Appearance Cloudy H Urine pH 5.5 Ur Specific [place] > 1.045 H Urine Protein 3+ H Urine Glucose (UA) Negative Urine Ketones Trace H Ur Blood (Man) 3+ H Urine Nitrate Negative Urine Bilirubin Negative Urine Urobilinogen 1.0 Add Ur Microanalysis Reviewed Leukocyte Esterase Rfl Trace H Urine RBC 6-10 H Urine WBC 0-5 Ur Squamous Epith Cells Occasional Amorphous Sediment Few H Urine Bacteria None seen Urine Casts 3-5 Nasal MRSA (PCR) Not detected Influenza A (RT-PCR) Influenza B (RT-PCR) RSV (RT-PCR) SARS-CoV-2 RNA (RT-PCR) 01/21/25 01/21/25 01/21/25 06:01 06:02 09:00 WBC 11.5 H RBC 4.73 Hgb 15.0 Hct 43.8 MCV 92.6 MCH 31.7 MCHC 34.2 RDW 13.2 Plt Count 105 L MPV 10.1 Immature Gran % (Auto) 0.7 H Neut % (Auto) 89.1 H Lymph % (Auto) 4.0 L [place] % (Auto) 6.1 Eos % (Auto) 0.0 Baso % (Auto) 0.1 L Lymph # (Auto) 0.46 L [place] # (Auto) 0.7 H Eos # (Auto) 0.0 Baso # (Auto) 0.0 Abs Immat Gran (auto) 0.08 H Absolute Neuts (auto) 10.3 H Absolute Nucleated RBC 0.000 Nucleated RBC % 0.0 % Immature Plt Fraction PT INR APTT 76.7 H Puncture Site ABG pH ABG pCO2 ABG pO2 ABG PO2/FiO2 Ratio ABG HCO3 ABG O2 Saturation ABG O2 Content ABG Base Excess A-a Gradient Oxyhemoglobin Carboxyhemoglobin Methemoglobin Reduced Hemoglobin Total Hemoglobin O2 Delivery Device O2 Liters/Min FiO2 Sodium 135 L Potassium 3.4 Chloride 102 Carbon Dioxide 24 Anion Gap 9 BUN 30 H Creatinine 1.52 H Estim Creat Clear Calc 52 Estimated GFR 45 L Glucose 122 H Lactic Acid Calcium 8.2 L Total Bilirubin 3.3 H AST 252 H ALT 77 H Alkaline Phosphatase 79 Total Creatine Kinase Troponin I 0.333 H* C-Reactive Protein Total Protein 6.3 Albumin 3.2 L Urine Color Urine Appearance Urine pH Ur Specific [place] Urine Protein Urine Glucose (UA) Urine Ketones Ur Blood (Man) Urine Nitrate Urine Bilirubin Urine Urobilinogen Add Ur Microanalysis Leukocyte Esterase Rfl Urine RBC Urine WBC Ur Squamous Epith Cells Amorphous Sediment Urine Bacteria Urine Casts Nasal MRSA (PCR) Influenza A (RT-PCR) Influenza B (RT-PCR) RSV (RT-PCR) SARS-CoV-2 RNA (RT-PCR) 01/21/25 01/21/25 10:47 11:50 WBC RBC Hgb Hct MCV MCH MCHC RDW Plt Count MPV Immature Gran % (Auto) Neut % (Auto) Lymph % (Auto) [place] % (Auto) Eos % (Auto) Baso % (Auto) Lymph # (Auto) [place] # (Auto) Eos # (Auto) Baso # (Auto) Abs Immat Gran (auto) Absolute Neuts (auto) Absolute Nucleated RBC Nucleated RBC % % Immature Plt Fraction PT INR APTT 69.5 H Puncture Site ABG pH ABG pCO2 ABG pO2 ABG PO2/FiO2 Ratio ABG HCO3 ABG O2 Saturation ABG O2 Content ABG Base Excess A-a Gradient Oxyhemoglobin Carboxyhemoglobin Methemoglobin Reduced Hemoglobin Total Hemoglobin O2 Delivery Device O2 Liters/Min FiO2 Sodium Potassium Chloride Carbon Dioxide Anion Gap BUN Creatinine Estim Creat Clear Calc Estimated GFR Glucose Lactic Acid Calcium Total Bilirubin AST ALT Alkaline Phosphatase Total Creatine Kinase Troponin I C-Reactive Protein Total Protein Albumin Urine Color Urine Appearance Urine pH Ur Specific [place] Urine Protein Urine Glucose (UA) Urine Ketones Ur Blood (Man) Urine Nitrate Urine Bilirubin Urine Urobilinogen Add Ur Microanalysis Leukocyte Esterase Rfl Urine RBC Urine WBC Ur Squamous Epith Cells Amorphous Sediment Urine Bacteria Urine Casts Nasal MRSA (PCR) Influenza A (RT-PCR) Negative Influenza B (RT-PCR) Negative RSV (RT-PCR) Negative SARS-CoV-2 RNA (RT-PCR) Negative Quality VTE Prophylaxis VTE prophylaxis: pharmacologic ordered (Heparin GGT per protocol) Hospitalist MIPS Advance Care Plan I have confirmed that the patient's Advanced Care Plan is present, code status is documented, or surrogate decision maker is listed in patient medical record.: Yes Medication Reconciliation I have utilized all available resources to obtain, update and review the patients current medications (includes all prescriptions, OTC, herbals, cannabis, and nutritional supplements).: Yes
--- NOTE | 2025-01-21 14:06 | WPDCDIQUERY2 ---
CDI Query Clarification Request Please clarify type of rhabdomyolysis if known: ? Traumatic or muscle compression (e.g., crush syndrome or prolonged immobilization) ? Non-traumatic exertional (e.g., marked exertion in untrained individuals, hyperthermia, or metabolic myopathies) ? Non-traumatic no exertional (e.g., drugs or toxins, infections, or electrolyte disorders) the patient was markedly tachypneic at the time of my evaluation ABG was obtained. The patient had some respiratory alkalosis. Likely in part to compensate for rhabdomyolysis however cannot rule out some component of fluid overload given AFib. Labs in the ER demonstrated the patient had rhabdomyolysis with a CK greater than 10,000 acute kidney injury and lactic acidosis. He presents for complaints of generalized weakness and rapid heart rate. Patient was found on his floor at his own household and he has been lying on the ground since 10:00 a.m. for the patient as he was feeling too weak to get up. (4) Acute renal failure due to rhabdomyolysis: Code(s): N17.9 - Acute kidney failure, unspecified; M62.82 - Rhabdomyolysis <Renee Marquis RN - Last Filed: 01/21/25 14:09> Clarified Diagnosis Clarified Diagnosis: Traumatic or muscle compression (e.g., crush syndrome or prolonged immobilization) <Nadeem Kingsley MD - Last Filed: 01/21/25 15:55>
[2025-01-21] MEDS: HEPARIN SOD/D5W 100 UNITS/ML 25,000 UNITS/250 ML BAG 17 UNITS IV CONT (17:21)
[2025-01-21 19:58] LABS: Partial Thromboplastin Time 35.3 Seconds (22.3-36.8)
[2025-01-21 21:24] LABS: Hematocrit 44.3 % (42.0-52.0); Hemoglobin 15.2 g/dL (14.0-18.0); Immature Granulocyte Percent A 0.5 % (0-0.5); Lymphocytes Absolute Auto 0.63 K/mm3 (0.9-3.2); Mean Corpuscular HGB Conc 34.3 g/dl (32-36); Mean Corpuscular Hemoglobin 31.1 pg (26-34); Mean Corpuscular Volume 90.6 fl (80-100); Nucleated Red Blood Cells Absolute Auto 0.000 K/mm3 (0.0-0.012); Nucleated Red Blood Cells Perc 0.0 % (0.0-0.2); Platelet Count Result 102 k/mm3 (150-375); Red Blood Count 4.89 M/mm3 (4.6-6.20); White Blood Count 11.0 K/mm3 (4.5-10.0)
[2025-01-21 21:37] LABS: INR 1.1; Prothrombin Time 14.5 Seconds (11.1-14.7)
[2025-01-21 21:38] LABS: Partial Thromboplastin Time 30.0 Seconds (22.3-36.8)
[2025-01-22] VITALS (17 sets, daily range): BP systolic 136–157; BP diastolic 79–89; PULSE 76–94; RESP 22–32; TEMP 36.6–38.4; O2SAT 90–94
--- NOTE | 2025-01-22 | ECHO_ITS ---
Patient Info Name: Oleg Tay Age: 74 years : 1950 Gender: Male Ht: 76 in Wt: 258 lbs BSA: 2.53 m2 HR: 82 bpm BP: 154 / 86 mmHg Technical Quality: Fair Exam Date: 01/22/2025 8:11 AM Patient Status: I Admit Date: 01/21/2025 Exam Type: CA echo dop color flow w con Complete two-dimensional, color flow and Doppler transthoracic echocardiogram is performed with contrast to opacify the left ventricle and to improve the deliniation of the left ventricle endocardial borders. Staff Referring Physician: Matthieu Oleary Dining Server: Sosa Sebastian Attending Provider: Madai Carrero DO Contrast/Agitated Saline Contrast/Ag. Saline: Definity Amount: 3.00 ml Administered By: Sosa Sebastian Existing IV Access: Yes IV Access Condition: patent with no signs of infiltration Summary 1. Left ventricular systolic function is normal, estimated at 50-55. 2. There is mildly increased left ventricular wall thickness. 3. Left atrial chamber dimension is moderately enlarged. 4. There is mild mitral valve regurgitation. 5. There is no tricuspid valve regurgitation. 6. No pulmonary hypertension, estimated pulmonary arterial systolic pressure is 22 mmHg. 7. There is mild pulmonic regurgitation. Left Ventricle Left ventricular chamber dimension is normal. Left ventricular systolic function is normal, estimated at 50-55. There is mildly increased left ventricular wall thickness. Left ventricular septal wall motion is normal. The left ventricular diastolic function is abnormal. Right Ventricle Right ventricular chamber dimension is normal. Right ventricular systolic function is normal. Left Atria Left atrial chamber dimension is moderately enlarged. Right Atria Right atrial chamber dimension is normal. Aortic Valve The aortic valve is trileaflet. There is no aortic valve sclerosis. There is no aortic valve stenosis. There is no aortic valve regurgitation. There is mild aortic valve calcification. Pulmonic Valve The pulmonic valve is normal. There is no pulmonic valve stenosis. There is mild pulmonic regurgitation. Mitral Valve The mitral valve has normal leaflets. There is no mitral valve stenosis. There is mild mitral valve regurgitation. Tricuspid Valve The tricuspid valve leaflets are normal. There is no significant tricuspid valve stenosis. There is no tricuspid valve regurgitation. No pulmonary hypertension, estimated pulmonary arterial systolic pressure is 22 mmHg. Pericardium/Pleural The pericardium appears normal. There is no pericardial effusion. Inferior Vena Cava Normal inferior vena cava with >50% collapse upon inspiration consistent with normal right atrial pressure, 5 mmHg. Aorta The aortic root size at the sinus of Valsalva is normal. The prox ascending aorta size is normal. Left Ventricular Outflow Tract Name Value Normal LVOT 2D LVOT Diameter 2.0 cm LVOT Doppler LVOT Peak Velocity 95 cm/s LVOT Peak Gradient 4 mmHg LVOT Mean Gradient 2 mmHg LVOT VTI 15 cm LVOT VTI/AV VTI Ratio 0.7 LVOT Stroke Volume 48 ml LVOT CO 3.9 l/min LVOT CI 1.5 l/min/m2 Pulmonic Valve Name Value Normal RVOT Doppler RVOT Peak Velocity 73 cm/s RVOT Peak Gradient 2 mmHg PV Doppler PV Peak Velocity 101 cm/s PV Peak Gradient 4 mmHg Mitral Valve Name Value Normal MV Diastolic Function MV E Peak Velocity 41 cm/s MV A Peak Velocity 95 cm/s MV E/A 0.4 MV Decel Time (PW) 183 ms MV Annular TDI MV E/e' (Septal) 8.1 MV E/e' (Lateral) 6.0 MV E/e' (Average) 7.1 Tricuspid Valve Name Value Normal TV Regurgitation Doppler TR Peak Velocity 207 cm/s TR Peak Gradient 17 mmHg Estimated PAP/RSVP RA Pressure 5 mmHg <=5 PA Systolic Pressure 22 mmHg <36 RV Systolic Pressure 22 mmHg <36 Aortic Valve Name Value Normal AV Doppler AV Peak Velocity 161 cm/s AV Peak Gradient 10 mmHg AV Mean Gradient 6 mmHg AV VTI 22 cm AV Area (Cont Eq VTI) 2.2 cm2 >=3.0 AV Area (Cont Eq Alexis) 1.9 cm2 AV DI (Alexis) 0.59 AV Regurgitation 2D LVOT Area 3.2 cm2 Ventricles Name Value Normal LV Dimensions 2D/MM IVS Diastolic Thickness (2D) 1.3 cm 0.6-1.0 LVID Diastole (2D) 5.9 cm 4.2-5.8 LVIW Diastolic Thickness (2D) 1.2 cm 0.6-1.0 LVID Systole (2D) 3.8 cm 2.5-4.0 LVOT Diameter 2.0 cm LV Mass (2D Cubed) 320.55 g 88.00-224.00 LV Mass Index (2D Cubed) 127 g/m2 49-115 Relative Wall Thickness (2D) 0.41 <=0.42 LV Fractional Shortening/Ejection Fraction 2D/MM LV Fractional Shortening (2D) 35 % 25-43 LV EF (2D Teichholz) 63 % LV Diastolic Volume (4C MOD) 119 ml LV EF (4C MOD) 61 % LV Diastolic Volume (2C MOD) 115 ml LV EF (2C MOD) 68 % LV Diastolic Volume (BP MOD) 123 ml 62-150 LV Diastolic Volume Index (BP MOD) 49 ml/m2 34-74 LV Systolic Volume (BP MOD) 43 ml 21-61 LV Systolic Volume Index (BP MOD) 17 ml/m2 11-31 LV EF (BP MOD) 65 % 52-72 LV Diastolic Length (4C) 9.0 cm LV Systolic Length (4C) 6.8 cm LV Stroke Volume (4C MOD) 72 ml Atria Name Value Normal LA Dimensions LA Volume (4C A-L) 136 ml LA Volume (BP A-L) 122 ml RA Dimensions RA Area (4C) 12.2 cm2 <=18.0 Report Signatures
[2025-01-22] MEDS: PIPERACILLIN/TAZOBACTAM SOD 3.375 GM in SODIUM CHLORIDE 0.9% IV 50 ML 100 ML IVPB ×4 (01:00→17:10)
[2025-01-22 04:56] LABS: Hematocrit 41.5 % (42.0-52.0); Hemoglobin 14.5 g/dL (14.0-18.0); Immature Granulocyte Percent A 0.6 % (0-0.5); Lymphocytes Absolute Auto 0.77 K/mm3 (0.9-3.2); Mean Corpuscular HGB Conc 34.9 g/dl (32-36); Mean Corpuscular Hemoglobin 31.5 pg (26-34); Mean Corpuscular Volume 90.0 fl (80-100); Nucleated Red Blood Cells Absolute Auto 0.000 K/mm3 (0.0-0.012); Nucleated Red Blood Cells Perc 0.0 % (0.0-0.2); Platelet Count Result 114 k/mm3 (150-375); Red Blood Count 4.61 M/mm3 (4.6-6.20); White Blood Count 12.3 K/mm3 (4.5-10.0)
[2025-01-22 05:09] LABS: Partial Thromboplastin Time 41.5 Seconds (22.3-36.8)
[2025-01-22 05:10] LABS: Alanine Aminotransferase 98 U/L (6-50); Albumin Level 2.8 g/dL (3.5-5.1); Alkaline Phosphatase 92 U/L (38-126); Anion Gap 8 mmol/L (4-12); Aspartate Amino Transferase 205 U/L (17-59); Bilirubin,Total 2.2 mg/dL (0.2-1.3); Blood Urea Nitrogen 39 mg/dL (9-20); Calcium 8.1 mg/dL (8.4-10.2); Carbon Dioxide 20 mmol/L (22-30); Chloride 105 mmol/L (98-107); Estimated CRCL calculation 50 ml/min; Estimated Glomerular Filt Rate 42; Glucose 121 mg/dL (65-110); Potassium 3.2 mmol/L (3.4-5.0); Sodium 133 mmol/L (137-145); Total Protein 6.0 g/dL (6.3-8.2)
[2025-01-22] MEDS: LACTATED RINGERS 1,000 ML 100 ML IV CONT ×2 (05:30→15:45)
[2025-01-22] MEDS: POTASSIUM CHLORIDE 20 MEQ PACKET (FOR LIQUID) 40 MEQ PO (05:34)
[2025-01-22 06:26] LABS: Magnesium 2.0 mg/dL (1.6-2.3)
[2025-01-22] MEDS: PERFLUTREN LIPID MICROSPHERES 1.5 ML VIAL DILUTED TO 10 ML TOTAL VOLUME IV PUSH (08:35)
[2025-01-22] MEDS: PANTOPRAZOLE 40 MG TABLET PO ×2 (08:39→17:09)
[2025-01-22] MEDS: OMEGA 3 POLYUNSAT FATTY ACIDS 1 GM CAP PO (08:39)
[2025-01-22] MEDS: METOPROLOL SUCCINATE EXT REL 25 MG TABCR PO (08:41)
[2025-01-22] MEDS: FLUTICASONE PROPIONATE 0.05% NA SPR 16 GM BTL (*BKC) 2 SPRAY NASAL ×2 (08:41→17:09)
[2025-01-22] MEDS: DOXYCYCLINE IV 100 MG in SODIUM CHLORIDE 0.9% IV 100 ML IVPB ×2 (08:41→20:18)
--- NOTE | 2025-01-22 09:16 | IVDEFINITY ---
Prior to administration of IV Definity the patient was educated on the risks and benefits of the imaging enhancing agent including potential adverse side effects. The patient verbalized understanding. Allergies were verified. No exclusion criteria were identified and at least one of the following inclusion criteria were met: 1) physician request, 2) patient technically difficult to image (per the [place] [employer] guidelines of two or more segments not discernable within the apical view), or 3) questionable left ventricular function. ?
--- NOTE | 2025-01-22 10:16 | P.PNCA_ITS ---
Progress Note: A&P Assessment and Plan (1) Atrial fibrillation with rapid ventricular response: Code(s): I48.91 - Unspecified atrial fibrillation Status: Acute Assessment and Plan: Atrial fibrillation with rapid ventricular response in the setting of rhabdomyolysis, sepsis. This is a new diagnosis. He has converted to sinus rhythm. * Continue ToprolXL 25mg daily * He has a CHADs2 Vasc score of 3 (age, HTN). Anticoagulation is indicated. He can be shifted from heparin to DOAC when we are sure he will not be having any invasive procedures during this hospital stay (scheduled for HIDA scan today) * Echo showed normal LV function * Continue telemetry for the time being (2) Elevated troponin: Code(s): R79.89 - Other specified abnormal findings of blood chemistry Status: Acute Assessment and Plan: 0.141, 0.333. He is not having any chest pain. Unclear why troponin levels were sampled given his presentation with a fall and inability to get up. His troponin levels are most likely elevated secondary to rhabdomyolysis and sepsis. Cannot rule out underlying coronary artery disease - outpatient stress testing would be appropriate. Normal LV function on echo (3) Benign essential hypertension: Code(s): I10 - Essential (primary) hypertension Status: Acute Assessment and Plan: Blood pressure at goal (4) Colitis: Code(s): K52.9 - Noninfective gastroenteritis and colitis, unspecified Status: Acute Assessment and Plan: Management per hospitalist (5) Multifocal pneumonia: Code(s): J18.8 - Other pneumonia, unspecified organism Status: Acute Assessment and Plan: Management per hospitalist. Subjective Date/time seen: 01/22/25 10:16 Interval history: Cardiology follow up visit Date of service 01/22/2025: Stable, remains in sinus rhythm. No chest pain, palpitations. Review of Systems Review of Systems: All systems reviewed & are unremarkable except as noted in HPI and below Exam Const: General: comfortable, no acute distress, alert and awake Orientation/consciousness: patient oriented x3 HENMT: Head: normal to inspection Eyes: General: appearance normal, both eyes and all related structures Pupils: Equal, round and reactive pupils present Neck: Neck: normal visual inspection, supple and no JVD Carotids: normal carotid upstroke Resp: Effort & Inspection: normal respiratory effort Auscultation: clear to auscultation bilaterally Cardio: Rate: regular rate Rhythm: regular rhythm Heart sounds: S1 normal heart sound present, S2 normal heart sound present and no murmurs GI: Auscultation: normal bowel sounds Skin: General skin exam: normal color Neuro: General: patient oriented x3 Cranial nerves: Yes Equal, round and reactive pupils present Extrem: General: normal to inspection Other: no edema Psych: Appearance: grossly normal Mental Status: mental status grossly normal Objective Data Vital Signs Vital Signs: Vital Signs - 24 hr 01/21/25 10:19 01/21/25 12:00 01/21/25 12:00 Temperature 36.6 C Pulse Rate 89 81 Respiratory Rate 28 H Blood Pressure 134/83 Pulse Oximetry 92 93 Oxygen Delivery High Flow Therapy with Na Oxygen Flow Rate 35 Fraction of Inspired Oxygen 55 01/21/25 12:00 01/21/25 12:05 01/21/25 12:59 Temperature Pulse Rate 86 84 81 Respiratory Rate 18 Blood Pressure Pulse Oximetry 95 Oxygen Delivery High Flow Therapy with Na Oxygen Flow Rate 35 Fraction of Inspired Oxygen 55 01/21/25 14:00 01/21/25 14:12 01/21/25 14:49 Temperature Pulse Rate 82 81 Respiratory Rate Blood Pressure Pulse Oximetry 92 Oxygen Delivery Nasal Cannula Oxygen Flow Rate 3 Fraction of Inspired Oxygen 01/21/25 15:11 01/21/25 16:00 01/21/25 16:00 Temperature 36.4 C L Pulse Rate 83 84 Respiratory Rate 24 H Blood Pressure 130/83 Pulse Oximetry 92 93 Oxygen Delivery Nasal Cannula Oxygen Flow Rate 3 Fraction of Inspired Oxygen 01/21/25 16:42 01/21/25 18:00 01/21/25 18:10 Temperature Pulse Rate 80 81 82 Respiratory Rate Blood Pressure Pulse Oximetry Oxygen Delivery Oxygen Flow Rate Fraction of Inspired Oxygen 01/21/25 19:00 01/21/25 20:00 01/21/25 20:00 Temperature Pulse Rate 92 80 Respiratory Rate Blood Pressure Pulse Oximetry 92 Oxygen Delivery Nasal Cannula Oxygen Flow Rate 4 Fraction of Inspired Oxygen 01/21/25 20:18 01/21/25 22:00 01/21/25 22:23 Temperature 38.3 C H Pulse Rate 92 85 85 Respiratory Rate 24 H 20 Blood Pressure 142/76 H Pulse Oximetry 90 99 Oxygen Delivery Nasal Cannula Oxygen Flow Rate 3 Fraction of Inspired Oxygen 32 01/22/25 00:00 01/22/25 00:00 01/22/25 00:00 Temperature 38.4 C H Pulse Rate 94 92 Respiratory Rate 24 H Blood Pressure 157/87 H Pulse Oximetry 91 91 Oxygen Delivery Nasal Cannula Oxygen Flow Rate 4 Fraction of Inspired Oxygen 01/22/25 02:00 01/22/25 04:00 01/22/25 04:00 Temperature 37.3 C Pulse Rate 83 82 91 Respiratory Rate 22 H Blood Pressure 154/86 H Pulse Oximetry 93 Oxygen Delivery Oxygen Flow Rate Fraction of Inspired Oxygen 01/22/25 04:00 01/22/25 06:00 01/22/25 08:00 Temperature 36.8 C Pulse Rate 88 89 Respiratory Rate 32 H Blood Pressure 149/89 H Pulse Oximetry 93 94 Oxygen Delivery Nasal Cannula Oxygen Flow Rate 4 Fraction of Inspired Oxygen 01/22/25 08:00 01/22/25 08:00 01/22/25 08:41 Temperature Pulse Rate 81 78 Respiratory Rate Blood Pressure Pulse Oximetry 94 Oxygen Delivery Nasal Cannula Oxygen Flow Rate 4 Fraction of Inspired Oxygen Intake/Output Intake/Output: Intake & Output 01/19/25 01/20/25 01/21/25 01/22/25 23:59 23:59 23:59 23:59 Intake Total 1.3 5781.3 1125.8 Output Total 1500 700 Balance 1.3 4281.3 425.8 Meds/Results Medications: Active Medications Generic Name Dose Route Start Last Admin Trade Name Freq PRN Reason Stop Dose Admin Acetaminophen 650 mg 01/21/25 02:19 01/21/25 09:30 Acetaminophen 325 Mg Tablet PO 650 mg Q4H PRN Administration Mild Pain (1-3) or Fever Fish Oil 1 gm 01/21/25 09:00 01/22/25 08:39 [place] 3 Polyunsat Fatty Acids 1 Gm Cap PO 1 gm DAILY DREAD Administration Fluticasone Propionate 2 spray 01/21/25 09:00 01/22/25 08:41 Fluticasone Propionate 0.05% Na Spr 16 Gm Btl (*Bkc) NASAL 2 spray BID DREAD Administration Heparin Sodium (Porcine) 8,000 units 01/21/25 20:58 01/22/25 05:35 Heparin Sodium 5,000 Units/Ml Vial IV PUSH 8,000 units PRN PRN Administration aPTT less than 55 seconds Heparin Sodium (Porcine) 4,000 units 01/21/25 20:58 Heparin Sodium 5,000 Units/Ml Vial IV PUSH PRN PRN aPTT 55 - 70 seconds Doxycycline Hyclate 100 mg/ 100 mls @ 100 mls/hr 01/21/25 09:00 01/22/25 08:41 Sodium Chloride IVPB 01/25/25 21:59 100 mls/hr Q12HR DREAD Administration Piperacillin Sod/Tazobactam 50 mls @ 100 mls/hr 01/21/25 12:00 01/22/25 06:00 Sod 3.375 gm/ Sodium Chloride IVPB Infused Q6HR DREAD Infusion Lactated Ringer's 1,000 mls @ 100 mls/hr 01/21/25 09:30 01/22/25 05:30 Lr - Lactated Ringers Iv IV CONT 100 mls/hr .Q10H DREAD Administration Heparin Sodium/Dextrose 25,000 units in 250 mls @ 19 mls/hr 01/21/25 21:00 01/22/25 05:35 Heparin Sodium/D5w 100 Units/Ml IV CONT 1,900 units/hr .[id number] DREAD 19 mls/hr Protocol Titration 1,900 UNITS/HR Metoprolol Succinate 25 mg 01/22/25 09:00 01/22/25 08:41 Metoprolol Succinate Ext Rel 25 Mg Tabcr PO 25 mg QAM DREAD Administration Ondansetron HCl 4 mg 01/21/25 02:19 Ondansetron Inj 4 Mg/2 Ml Vial IV PUSH Q4H PRN Nausea Pantoprazole Sodium 40 mg 01/21/25 09:05 01/22/25 08:39 Pantoprazole 40 Mg Tablet PO 40 mg BID DREAD Administration Radiology Results: ITS Impressions Chest/Abdomen/Pelvis CTA 01/21/25 08:52 Impression: Distended gallbladder with suspected mild pericholecystic inflammatory change, suspicious for acute cholecystitis. Correlate clinically. Consider ultrasound and/or HIDA scan for further evaluation as indicated. Mild bibasilar pulmonary edema/atelectasis. Chest X-Ray 01/21/25 09:55 IMPRESSION: 1.Small to moderate-sized patchy opacities scattered throughout the mid and lower lungs are similar to the study from 01/20/2025. The findings may be secondary to atelectasis or consolidations. Recommend follow-up to resolution to exclude an underlying mass. Upper Quadrant Ultrasound 01/21/25 12:09 IMPRESSION: Limited evaluation of the pancreas secondary to overlying bowel gas. Layering sludge within the distended gallbladder. Borderline gallbladder wall thickening without pericholecystic fluid. Trace surrounding inflammatory change on CT examination performed approximately 12 hours earlier with indeterminate findings on ultrasound examination. If clinical suspicion persists for acalculous cholecystitis, HIDA scan would provide additional information. Labs Labs: Laboratory Results - last 24 hr 01/21/25 01/21/25 01/21/25 10:47 11:50 19:33 WBC RBC Hgb Hct MCV MCH MCHC RDW Plt Count MPV Immature Gran % (Auto) Neut % (Auto) Lymph % (Auto) [place] % (Auto) Eos % (Auto) Baso % (Auto) Lymph # (Auto) [place] # (Auto) Eos # (Auto) Baso # (Auto) Abs Immat Gran (auto) Absolute Neuts (auto) Absolute Nucleated RBC Nucleated RBC % PT INR APTT 69.5 H 35.3 Sodium Potassium Chloride Carbon Dioxide Anion Gap BUN Creatinine Estim Creat Clear Calc Estimated GFR Glucose Calcium Magnesium Total Bilirubin AST ALT Alkaline Phosphatase Total Protein Albumin Influenza A (RT-PCR) Negative Influenza B (RT-PCR) Negative RSV (RT-PCR) Negative SARS-CoV-2 RNA (RT-PCR) Negative Urine Pneumococcal Ag Cancelled 01/21/25 01/22/25 01/22/25 21:18 03:40 03:45 WBC 11.0 H 12.3 H RBC 4.89 4.61 Hgb 15.2 14.5 Hct 44.3 41.5 L MCV 90.6 90.0 MCH 31.1 31.5 MCHC 34.3 34.9 RDW 13.5 13.4 Plt Count 102 L 114 L MPV 10.6 H 10.6 H Immature Gran % (Auto) 0.5 0.6 H Neut % (Auto) 86.1 H 86.8 H Lymph % (Auto) 5.7 L 6.2 L [place] % (Auto) 7.3 6.2 Eos % (Auto) 0.1 0.0 Baso % (Auto) 0.3 0.2 Lymph # (Auto) 0.63 L 0.77 L [place] # (Auto) 0.8 H 0.8 H Eos # (Auto) 0.0 0.0 Baso # (Auto) 0.0 0.0 Abs Immat Gran (auto) 0.05 H 0.07 H Absolute Neuts (auto) 9.5 H 10.7 H Absolute Nucleated RBC 0.000 0.000 Nucleated RBC % 0.0 0.0 PT 14.5 INR 1.1 APTT 30.0 41.5 H Sodium 133 L Potassium 3.2 L Chloride 105 Carbon Dioxide 20 L Anion Gap 8 BUN 39 H Creatinine 1.60 H Estim Creat Clear Calc 50 Estimated GFR 42 L Glucose 121 H Calcium 8.1 L Magnesium 2.0 Total Bilirubin 2.2 H AST 205 H ALT 98 H Alkaline Phosphatase 92 Total Protein 6.0 L Albumin 2.8 L Influenza A (RT-PCR) Influenza B (RT-PCR) RSV (RT-PCR) SARS-CoV-2 RNA (RT-PCR) Urine Pneumococcal Ag Quality VTE Prophylaxis VTE prophylaxis: pharmacologic ordered (Heparin GGT per protocol)
[2025-01-22] MEDS: HEPARIN SOD/D5W 100 UNITS/ML 25,000 UNITS/250 ML BAG 19 UNITS IV CONT (11:57)
[2025-01-22 12:10] LABS: Partial Thromboplastin Time 67.8 Seconds (22.3-36.8)
--- NOTE | 2025-01-22 17:27 | P.PNIM_ITS ---
Progress Note: A&P Assessment and Plan (1) Severe sepsis: Code(s): A41.9 - Sepsis, unspecified organism; R65.20 - Severe sepsis without septic shock Status: Acute (2) Multifocal pneumonia: Code(s): J18.8 - Other pneumonia, unspecified organism Status: Acute (3) Colitis: Code(s): K52.9 - Noninfective gastroenteritis and colitis, unspecified Status: Acute (4) Acute renal failure due to rhabdomyolysis: Code(s): N17.9 - Acute kidney failure, unspecified; M62.82 - Rhabdomyolysis Status: Acute (5) Transaminitis: Status: Acute (6) Acute dehydration: Code(s): E86.0 - Dehydration Status: Acute (7) Atrial fibrillation with rapid ventricular response: Code(s): I48.91 - Unspecified atrial fibrillation Status: Acute (8) GERD (gastroesophageal reflux disease): Qualifiers: Esophagitis presence: esophagitis presence not specified Qualified Code(s): K21.9 - Gastro-esophageal reflux disease without esophagitis Code(s): K21.9 - Gastro-esophageal reflux disease without esophagitis Status: Acute (9) Elevated troponin: Code(s): R79.89 - Other specified abnormal findings of blood chemistry Status: Acute (10) Memory impairment: Code(s): R41.3 - Other amnesia Status: Acute Plan Assessment and Plan (1) Severe sepsis: Meets sirs criteria:Fever,Tachycardia,Tachypnea Continue Zosyn and doxycycline Suspected source possible pneumonia Blood culture and urine culture pain Lactic acid coag covid,flu Monitor vitals hydrocotisone 200mg x 3 days,fludrocortisone (2) Multifocal pneumonia: Same as above (3) Colitis: Continue Zosyn (4) Acute renal failure due to rhabdomyolysis: Due to fall Continue IV hydration Echocardiogram pending Cr 1.6 from 1.36 Monitor I and O (5) Transaminitis: Right upper quadrant ultrasound reviwed and HIDA scan ordered Possibly due to rhabdomyolysis versus acute cholecystitis Monitor LFTs (6) Acute dehydration: Continue IV fluids (7) Atrial fibrillation with rapid ventricular response: Started on amiodarone Start metoprolol 25 mg p.o. q.d. for from tomorrow On heparin drip Will be transitioned to oral anticoagulant from tomorrow Pending echo (8) GERD (gastroesophageal reflux disease): K21.9 - Gastro-esophageal reflux disease without esophagitis (9) Elevated troponin: Possibly due to rhabdomyolysis ECHo pending Cardiology on board (10) Memory impairment: Code(s): R41.3 - Other amnesia Status: Acute Plan Code status: Full code DVT prophylaxis: Heparin drip Subjective Date/time seen: 01/22/25 17:27 Interval history: Comfortable at bedside Review of Systems Review of Systems: Review of systems limited due to the patient's clinical condition and chronic hearing loss. Exam Narrative: Weight 115.8 kg BMI 31.1 Const: Other: Acutely ill-appearing, appears stated age, well-developed well-nourished HENMT: Other: Mucous membranes are dry, no oral pharyngeal erythema, head is normocephalic atraumatic Eyes: Other: Pupils are equal and reactive, mild scleral icterus, no conjunctival pallor, extraocular movements intact Neck: Other: No JVD, no lymphadenopathy Resp: Other: Marked tachypnea with respiratory rate in the mid 30s, accessory muscle use with abdominal respirations Cardio: Other: Irregularly irregular, tachycardic, 2+ bilateral radial pedal pulses, no JVD GI: Other: Markedly tender in the right upper quadrant area, abdomen was sent initially distended but on repeat evaluation after Armenta catheter lower abdomen is much softer, normoactive bowel sounds, no tympany : Other: Armenta catheter was placed was at bedside patient had turbid coke colored urine about 250 mL Skin: Other: Hot to touch, jaundice, 3-4 second cap refill Neuro: Other: Alert oriented to person, place and month confused as to the year thought the year was 2021 speech is clear, chronic hearing loss, no gross motor deficits noted on exam no facial asymmetry Extrem: Other: No clubbing, cyanosis or edema, moves all extremities equally, 5/5 dry finisher strength bilateral Psych: Other: Appropriately anxious, otherwise pleasant and cooperative Objective Data Vital Signs Vital Signs: Vital Signs - 24 hr 01/21/25 18:00 01/21/25 18:10 01/21/25 19:00 Temperature Pulse Rate 81 82 92 Respiratory Rate Blood Pressure Pulse Oximetry Oxygen Delivery Oxygen Flow Rate Fraction of Inspired Oxygen 01/21/25 20:00 01/21/25 20:00 01/21/25 20:18 Temperature 101.0 F H Pulse Rate 80 92 Respiratory Rate 24 H Blood Pressure 142/76 H Pulse Oximetry 92 90 Oxygen Delivery Nasal Cannula Oxygen Flow Rate 4 Fraction of Inspired Oxygen 01/21/25 22:00 01/21/25 22:23 01/22/25 00:00 Temperature 101.2 F H Pulse Rate 85 85 94 Respiratory Rate 20 24 H Blood Pressure 157/87 H Pulse Oximetry 99 91 Oxygen Delivery Nasal Cannula Oxygen Flow Rate 3 Fraction of Inspired Oxygen 32 01/22/25 00:00 01/22/25 00:00 01/22/25 02:00 Temperature Pulse Rate 92 83 Respiratory Rate Blood Pressure Pulse Oximetry 91 Oxygen Delivery Nasal Cannula Oxygen Flow Rate 4 Fraction of Inspired Oxygen 01/22/25 04:00 01/22/25 04:00 01/22/25 04:00 Temperature 99.2 F Pulse Rate 82 91 Respiratory Rate 22 H Blood Pressure 154/86 H Pulse Oximetry 93 93 Oxygen Delivery Nasal Cannula Oxygen Flow Rate 4 Fraction of Inspired Oxygen 01/22/25 06:00 01/22/25 08:00 01/22/25 08:00 Temperature 98.2 F Pulse Rate 88 89 Respiratory Rate 32 H Blood Pressure 149/89 H Pulse Oximetry 94 94 Oxygen Delivery Nasal Cannula Oxygen Flow Rate 4 Fraction of Inspired Oxygen 01/22/25 08:00 01/22/25 08:41 01/22/25 11:52 Temperature 98.1 F Pulse Rate 81 78 85 Respiratory Rate 24 H Blood Pressure 136/82 Pulse Oximetry 90 Oxygen Delivery Oxygen Flow Rate Fraction of Inspired Oxygen 01/22/25 15:54 01/22/25 16:00 Temperature 98.2 F Pulse Rate 87 Respiratory Rate 24 H Blood Pressure 148/82 H Pulse Oximetry 91 92 Oxygen Delivery Nasal Cannula Oxygen Flow Rate 4 Fraction of Inspired Oxygen Intake/Output Intake/Output: Intake & Output 01/19/25 01/20/25 01/21/25 01/22/25 23:59 23:59 23:59 23:59 Intake Total 1.3 5781.3 2428.5 Output Total 1500 700 Balance 1.3 4281.3 1728.5 Meds/Results Medications: Active Medications Generic Name Dose Route Start Last Admin Trade Name Freq PRN Reason Stop Dose Admin Acetaminophen 650 mg 01/21/25 02:19 01/21/25 09:30 Acetaminophen 325 Mg Tablet PO 650 mg Q4H PRN Administration Mild Pain (1-3) or Fever Fish Oil 1 gm 01/21/25 09:00 01/22/25 08:39 [place] 3 Polyunsat Fatty Acids 1 Gm Cap PO 1 gm DAILY DREAD Administration Fluticasone Propionate 2 spray 01/21/25 09:00 01/22/25 17:09 Fluticasone Propionate 0.05% Na Spr 16 Gm Btl (*Bkc) NASAL 2 spray BID DREAD Administration Heparin Sodium (Porcine) 8,000 units 01/21/25 20:58 01/22/25 05:35 Heparin Sodium 5,000 Units/Ml Vial IV PUSH 8,000 units PRN PRN Administration aPTT less than 55 seconds Heparin Sodium (Porcine) 4,000 units 01/21/25 20:58 01/22/25 13:38 Heparin Sodium 5,000 Units/Ml Vial IV PUSH 4,000 units PRN PRN Administration aPTT 55 - 70 seconds Doxycycline Hyclate 100 mg/ 100 mls @ 100 mls/hr 01/21/25 09:00 01/22/25 13:43 Sodium Chloride IVPB 01/25/25 21:59 Infused Q12HR DREAD Infusion Piperacillin Sod/Tazobactam 50 mls @ 100 mls/hr 01/21/25 12:00 01/22/25 17:10 Sod 3.375 gm/ Sodium Chloride IVPB 100 mls/hr Q6HR DREAD Administration Lactated Ringer's 1,000 mls @ 100 mls/hr 01/21/25 09:30 01/22/25 15:45 Lr - Lactated Ringers Iv IV CONT 100 mls/hr .Q10H DREAD Administration Heparin Sodium/Dextrose 25,000 units in 250 mls @ 21 mls/hr 01/21/25 21:00 01/22/25 13:37 Heparin Sodium/D5w 100 Units/Ml IV CONT 2,100 units/hr .[id number] DREAD 21 mls/hr Protocol Titration 2,100 UNITS/HR Metoprolol Succinate 25 mg 01/22/25 09:00 01/22/25 08:41 Metoprolol Succinate Ext Rel 25 Mg Tabcr PO 25 mg QAM DREAD Administration Ondansetron HCl 4 mg 01/21/25 02:19 Ondansetron Inj 4 Mg/2 Ml Vial IV PUSH Q4H PRN Nausea Pantoprazole Sodium 40 mg 01/21/25 09:05 01/22/25 17:09 Pantoprazole 40 Mg Tablet PO 40 mg BID DREAD Administration Radiology Results: ITS Impressions Chest/Abdomen/Pelvis CTA 01/21/25 08:52 Impression: Distended gallbladder with suspected mild pericholecystic inflammatory change, suspicious for acute cholecystitis. Correlate clinically. Consider ultrasound and/or HIDA scan for further evaluation as indicated. Mild bibasilar pulmonary edema/atelectasis. Chest X-Ray 01/21/25 09:55 IMPRESSION: 1.Small to moderate-sized patchy opacities scattered throughout the mid and lower lungs are similar to the study from 01/20/2025. The findings may be secondary to atelectasis or consolidations. Recommend follow-up to resolution to exclude an underlying mass. Upper Quadrant Ultrasound 01/21/25 12:09 IMPRESSION: Limited evaluation of the pancreas secondary to overlying bowel gas. Layering sludge within the distended gallbladder. Borderline gallbladder wall thickening without pericholecystic fluid. Trace surrounding inflammatory change on CT examination performed approximately 12 hours earlier with indeterminate findings on ultrasound examination. If clinical suspicion persists for acalculous cholecystitis, HIDA scan would pro vide additional information. Labs Labs: Laboratory Results - last 24 hr 01/21/25 01/21/25 01/21/25 10:47 19:33 21:18 WBC 11.0 H RBC 4.89 Hgb 15.2 Hct 44.3 MCV 90.6 MCH 31.1 MCHC 34.3 RDW 13.5 Plt Count 102 L MPV 10.6 H Immature Gran % (Auto) 0.5 Neut % (Auto) 86.1 H Lymph % (Auto) 5.7 L [place] % (Auto) 7.3 Eos % (Auto) 0.1 Baso % (Auto) 0.3 Lymph # (Auto) 0.63 L [place] # (Auto) 0.8 H Eos # (Auto) 0.0 Baso # (Auto) 0.0 Abs Immat Gran (auto) 0.05 H Absolute Neuts (auto) 9.5 H Absolute Nucleated RBC 0.000 Nucleated RBC % 0.0 PT 14.5 INR 1.1 APTT 35.3 30.0 Sodium Potassium Chloride Carbon Dioxide Anion Gap BUN Creatinine Estim Creat Clear Calc Estimated GFR Glucose Calcium Magnesium Total Bilirubin AST ALT Alkaline Phosphatase Total Protein Albumin Urine Pneumococcal Ag Cancelled 01/22/25 01/22/25 01/22/25 03:40 03:45 11:36 WBC 12.3 H RBC 4.61 Hgb 14.5 Hct 41.5 L MCV 90.0 MCH 31.5 MCHC 34.9 RDW 13.4 Plt Count 114 L MPV 10.6 H Immature Gran % (Auto) 0.6 H Neut % (Auto) 86.8 H Lymph % (Auto) 6.2 L [place] % (Auto) 6.2 Eos % (Auto) 0.0 Baso % (Auto) 0.2 Lymph # (Auto) 0.77 L [place] # (Auto) 0.8 H Eos # (Auto) 0.0 Baso # (Auto) 0.0 Abs Immat Gran (auto) 0.07 H Absolute Neuts (auto) 10.7 H Absolute Nucleated RBC 0.000 Nucleated RBC % 0.0 PT INR APTT 41.5 H 67.8 H Sodium 133 L Potassium 3.2 L Chloride 105 Carbon Dioxide 20 L Anion Gap 8 BUN 39 H Creatinine 1.60 H Estim Creat Clear Calc 50 Estimated GFR 42 L Glucose 121 H Calcium 8.1 L Magnesium 2.0 Total Bilirubin 2.2 H AST 205 H ALT 98 H Alkaline Phosphatase 92 Total Protein 6.0 L Albumin 2.8 L Urine Pneumococcal Ag Quality VTE Prophylaxis VTE prophylaxis: pharmacologic ordered (Heparin GGT per protocol)
[2025-01-22 20:16] LABS: Partial Thromboplastin Time 51.5 Seconds (22.3-36.8)
[2025-01-23] VITALS (20 sets, daily range): BP systolic 134–157; BP diastolic 61–91; PULSE 77–89; RESP 18–25; TEMP 36.4–37.4; O2SAT 91–95
[2025-01-23] MEDS: PIPERACILLIN/TAZOBACTAM SOD 3.375 GM in SODIUM CHLORIDE 0.9% IV 50 ML 100 ML IVPB ×5 (00:57→23:52)
[2025-01-23] MEDS: HEPARIN SOD/D5W 100 UNITS/ML 25,000 UNITS/250 ML BAG 25 UNITS IV CONT (02:45)
[2025-01-23 03:16] LABS: Hematocrit 40.4 % (42.0-52.0); Hemoglobin 14.1 g/dL (14.0-18.0); Immature Granulocyte Percent A 0.7 % (0-0.5); Lymphocytes Absolute Auto 0.91 K/mm3 (0.9-3.2); Mean Corpuscular HGB Conc 34.9 g/dl (32-36); Mean Corpuscular Hemoglobin 31.5 pg (26-34); Mean Corpuscular Volume 90.4 fl (80-100); Nucleated Red Blood Cells Absolute Auto 0.000 K/mm3 (0.0-0.012); Nucleated Red Blood Cells Perc 0.0 % (0.0-0.2); Platelet Count Result 128 k/mm3 (150-375); Red Blood Count 4.47 M/mm3 (4.6-6.20); White Blood Count 13.8 K/mm3 (4.5-10.0)
[2025-01-23 03:28] LABS: Partial Thromboplastin Time 74.2 Seconds (22.3-36.8)
[2025-01-23 03:35] LABS: Alanine Aminotransferase 120 U/L (6-50); Albumin Level 2.8 g/dL (3.5-5.1); Alkaline Phosphatase 102 U/L (38-126); Anion Gap 9 mmol/L (4-12); Aspartate Amino Transferase 182 U/L (17-59); Bilirubin,Total 3.2 mg/dL (0.2-1.3); Blood Urea Nitrogen 46 mg/dL (9-20); Calcium 8.0 mg/dL (8.4-10.2); Carbon Dioxide 22 mmol/L (22-30); Chloride 104 mmol/L (98-107); Estimated CRCL calculation 43 ml/min; Estimated Glomerular Filt Rate 35; Glucose 106 mg/dL (65-110); Magnesium 2.0 mg/dL (1.6-2.3); Potassium 3.1 mmol/L (3.4-5.0); Sodium 135 mmol/L (137-145); Total Protein 5.8 g/dL (6.3-8.2)
[2025-01-23] MEDS: MORPHINE SULFATE (*CRX) 2 MG/ML INJ IV PUSH (09:22)
[2025-01-23 11:11] LABS: Partial Thromboplastin Time 61.5 Seconds (22.3-36.8)
[2025-01-23] MEDS: OMEGA 3 POLYUNSAT FATTY ACIDS 1 GM CAP PO (11:15)
[2025-01-23] MEDS: METOPROLOL SUCCINATE EXT REL 25 MG TABCR PO (11:15)
[2025-01-23] MEDS: DOXYCYCLINE IV 100 MG in SODIUM CHLORIDE 0.9% IV 100 ML IVPB ×2 (11:15→20:06)
--- NOTE | 2025-01-23 11:49 | PM.CNGS ---
Assessment and Plan Assessment and plan (1) Transaminitis: Status: Acute Assessment and Plan: Patient presented 3 days ago with complaints of generalized weakness and rapid heart rate after being found on the slower of his own household after several hours of lying there. He was found to be in AFib RVR and had findings suggestive of rhabdomyolysis. Bilirubin and other liver enzymes were found to be elevated. CTA demonstrated distended gallbladder with suspected mild pericholecystic inflammatory change, suspicious for acute cholecystitis. Right upper quadrant ultrasound was obtained and demonstrated layering sludge within the distended gallbladder. Borderline gallbladder wall thickening without pericholecystic fluid. HIDA scan was then obtained and demonstrated nonvisualization of the gallbladder and the 30 minutes following morphine administration consistent with acute cholecystitis. Patient does not complain of any abdominal pain. No nausea or vomiting or changes in bowel habits. No immediate surgical intervention necessary, as patient is not experiencing any right upper quadrant pain. Elevated liver enzymes could be due to rhabdomyolysis. Will consider percutaneous cholecystostomy tube if patient develops pain or any other symptoms. With other comorbidities, patient would not make for a good surgical candidate. Continue IV Zosyn and doxycycline. (2) Atrial fibrillation with rapid ventricular response: Code(s): I48.91 - Unspecified atrial fibrillation Status: Acute Assessment and Plan: Patient back in normal sinus rhythm. Continue metoprolol. If planning to switch off of heparin drip, consider Lovenox or other short-acting anticoagulant, in the case that percutaneous cholecystostomy tube may need to be placed in the future. (3) Acute renal failure due to rhabdomyolysis: Code(s): N17.9 - Acute kidney failure, unspecified; M62.82 - Rhabdomyolysis Status: Acute Assessment and Plan: BUN and creatinine remains elevated. Lactic acid normalized. Plan Discussed patient's case and plan of care with Dr. Huang. History of Present Illness Consult details Consult date: 01/23/25 Reason for consult: other (Acute cholecystitis) Requesting physician: Matthieu Oleary MD Narrative: Patient is a 74-year-old male with history of hypertension and hyperlipidemia who we have been asked to see in surgical consultation for acute cholecystitis. Patient presented to the ED on 01/20 with complaints of generalized weakness and rapid heart rate. He was found on the floor of his own household and was presumably lying there for several hours. Patient was hypoxemic requiring 4L oxygen, tachycardic, febrile and tachypneic. He was found to be in AFib with RVR. Septic given the fever, no history of AFib, and on clear onset of symptoms of a fib. Diltiazem drip was initiated for rapid heart rate, but was unsuccessful. He was switched to amiodarone. CT scan showed multifocal pneumonia as well as colitis of the transverse colon. Also noted on CTA was distended gallbladder with suspected mild pericholecystic inflammatory change, suspicious for acute cholecystitis. Rhabdomyolysis with acute renal injury with CPK over 10,000. Lactic acidosis of 2.2 elevated LFTs. Placed on heparin drip by Cardiology. Per their note, they intend to switch to a DOAC. He has now flipped out of AFib. Elevated troponin levels most likely secondary to rhabdomyolysis and sepsis. LFTs remained elevated so right upper quadrant ultrasound was performed. This demonstrated layering sludge within the gallbladder which is distended. No pericholecystic fluid. Borderline wall thickening of the gallbladder measuring 3.6 mm. HIDA scan was ordered today and demonstrated nonvisualization of the gallbladder and the 30 minutes following morphine administration consistent with acute cholecystitis. Upon interview, patient does not endorse any current abdominal pain. Family at bedside states that he did have some abdominal pain last [place] night after eating a cheeseburger that has since subsided. No other episodes. No nausea or vomiting. Patient states he has been having regular bowel movements. No previous abdominal surgeries. WBC today 13.8. Bilirubin 3.2. Mildly elevated LFTs. Currently still on 4 L of oxygen via nasal cannula. [facility] Past Medical History Medical History Erectile dysfunction Mixed hyperlipidemia Vitamin D deficiency Positional vertigo Memory impairment Hypersomnolence Trigger finger Bilateral hand numbness Benign essential hypertension Psoriasis Stricture of esophagus Insomnia Kidney stone Hearing loss DJD (degenerative joint disease) GERD (gastroesophageal reflux disease) Pre-diabetes Surgical History Surgical History Status post total left knee replacement 08/02/2022 Hx of arthroscopic knee surgery Hx of detached retina repair Family History Family History Father Family history of congestive heart failure Family history of cardiovascular disease Family history of heart disease in male family member before age 55 Social History Social History (Updated 01/22/25 @ 02:28 by Madai Carrero DO) Social History: He has been since 2020. He lives by himself in [place] drives. 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 He is a lifetime nonsmoker. He drinks between 1-4 alcoholic beverages a month. He denies illicit substance use. Code status: Full code (patient would not want long-term ventilatory support) Surrogate decision makers: Shaunna (daughter) and son Smoking status: Never smoker Second hand tobacco smoke exposure: No Alcohol intake: current Drinks per week: 2 Alcohol use details: STATES 2-4 BEERS/WEEK Substance use: never Substance use type: does not use Lack of Transportation: No Lack of Food: Never True Current Housing: Decline to Answer Concerned About Future Housing: Decline to Answer Difficulty Paying Gas/Electric Bills: Decline to Answer Difficulty Paying for Meds: Decline to Answer Currently Unemployed: Decline to Answer Education: Decline to Answer Difficulty w/ Childcare or Family Care: Decline to Answer Living arrangements: alone Occupation/Education: retired Gender identity (if verbalized by the patient): Male Spiritual care concerns: No Agree to blood products: Yes Meds Home Medications and Allergies Home Medications ?Medication ?Instructions ?Recorded ?Confirmed ?Type Prevagen 10 mg BYMOUTH . daily 03/16/24 01/21/25 History omega-3 fatty acids-fish oil 360 1 cap PO DAILY 03/16/24 01/21/25 History mg-1,200 mg capsule (Fish Oil) pyridoxine (vitamin B6) 100 mg 100 mg PO DAILY 03/16/24 01/21/25 History tablet pravastatin 40 mg tablet See Rx Instructions .Route 07/24/24 01/21/25 Rx .COMPLEX #90 tabs ascorbic acid (vitamin C) 500 mg 500 mg PO DAILY 07/30/24 01/21/25 History capsule thiamine HCl (vitamin B1) 100 mg 100 mg PO DAILY 07/30/24 01/21/25 History capsule fluticasone propionate 50 2 spray intranasal BID #16 mL 11/28/24 01/21/25 Rx mcg/actuation nasal spray,suspension (Flonase Allergy Relief) meloxicam 15 mg tablet See Rx Instructions .Route 12/13/24 01/21/25 Rx .COMPLEX #30 tabs omeprazole 40 mg capsule,delayed See Rx Instructions .Route 12/13/24 01/21/25 Rx release .COMPLEX #180 caps valsartan 320 mg tablet 320 mg PO DAILY #90 tabs 12/13/24 01/21/25 Rx zolpidem 10 mg tablet 10 mg PO QHS #30 tabs 12/13/24 01/21/25 Rx donepezil 5 mg tablet 5 mg PO QHS #90 tabs 01/14/25 01/21/25 Rx Allergies Allergy/AdvReac Type Severity Reaction Status Date / Time No Known Allergies Allergy Verified 12/19/24 07:04 Vital Signs Vital Signs - 24 hr 01/22/25 11:52 01/22/25 12:00 01/22/25 14:00 Temperature 98.1 F Pulse Rate 85 81 88 Respiratory Rate 24 H Blood Pressure 136/82 Pulse Oximetry 90 Oxygen Delivery Oxygen Flow Rate 01/22/25 15:54 01/22/25 16:00 01/22/25 16:00 Temperature 98.2 F Pulse Rate 87 81 Respiratory Rate 24 H Blood Pressure 148/82 H Pulse Oximetry 91 92 Oxygen Delivery Nasal Cannula Oxygen Flow Rate 4 01/22/25 17:05 01/22/25 18:00 01/22/25 19:57 Temperature Pulse Rate 87 Respiratory Rate Blood Pressure Pulse Oximetry 92 91 Oxygen Delivery Nasal Cannula Nasal Cannula Oxygen Flow Rate 4 4 01/22/25 20:00 01/22/25 20:00 01/22/25 22:00 Temperature 97.9 F Pulse Rate 82 76 76 Respiratory Rate 22 H Blood Pressure 139/79 Pulse Oximetry 91 Oxygen Delivery Oxygen Flow Rate 01/23/25 00:00 01/23/25 00:00 01/23/25 00:00 Temperature 97.8 F Pulse Rate 86 88 Respiratory Rate 24 H Blood Pressure 154/61 H Pulse Oximetry 91 92 Oxygen Delivery Nasal Cannula Oxygen Flow Rate 5 01/23/25 02:10 01/23/25 03:40 01/23/25 04:00 Temperature 99.3 F Pulse Rate 88 85 Respiratory Rate 25 H Blood Pressure 144/78 H Pulse Oximetry 91 91 Oxygen Delivery Nasal Cannula Oxygen Flow Rate 5 01/23/25 04:00 01/23/25 06:26 01/23/25 07:42 Temperature 98.2 F Pulse Rate 77 89 84 Respiratory Rate 20 Blood Pressure 144/79 H Pulse Oximetry 93 Oxygen Delivery Oxygen Flow Rate 01/23/25 10:43 01/23/25 10:43 01/23/25 10:44 Temperature Pulse Rate 87 Respiratory Rate Blood Pressure 142/79 H 134/64 Pulse Oximetry Oxygen Delivery Oxygen Flow Rate 01/23/25 10:44 01/23/25 11:15 01/23/25 11:30 Temperature 97.5 F L Pulse Rate 78 81 Respiratory Rate 20 Blood Pressure 141/78 H 150/84 H Pulse Oximetry 95 Oxygen Delivery Oxygen Flow Rate Exam Const: General: comfortable and no acute distress Neck: Neck: supple Resp: Effort & Inspection: normal respiratory effort Other: On 4 L nasal cannula. Cardio: Rate: regular rate GI: Inspection: distended GI Palp: Yes Soft to palpation, No Tenderness to palpation present (GI) and No Guarding due to palpation present (GI) Auscultation: normal bowel sounds Extrem: General: normal to inspection Psych: Mental Status: mental status grossly normal Results Labs 01/23/25 03:11 01/23/25 03:11 Labs: Abnormal lab results 01/22/25 01/22/25 01/23/25 Range/Units 11:36 19:45 03:11 WBC 13.8 H (4.5-10.0) K/mm3 RBC 4.47 L (4.6-6.20) M/mm3 Hct 40.4 L (42.0-52.0) % Plt Count 128 L (150-375) k/mm3 MPV 10.5 H (7.4-10.4) fl Immature Gran % (Auto) 0.7 H (0-0.5) % Neut % (Auto) 82.0 H (45.5-73.1) % Lymph % (Auto) 6.6 L (18.3-44.2) % Leslie % (Auto) 10.1 H (2.6-8.5) % Leslie # (Auto) 1.4 H (0.1-0.6) K/mm3 Abs Immat Gran (auto) 0.10 H (0.00-0.031) K/mm3 Absolute Neuts (auto) 11.3 H (1.3-6.7) K/mm3 APTT 67.8 H 51.5 H 74.2 H (22.3-36.8) Seconds Sodium 135 L (137-145) mmol/L Potassium 3.1 L (3.4-5.0) mmol/L BUN 46 H (9-20) mg/dL Creatinine 1.89 H (0.7-1.3) mg/dL Estimated GFR 35 L (59 - ) Calcium 8.0 L (8.4-10.2) mg/dL Total Bilirubin 3.2 H (0.2-1.3) mg/dL AST 182 H (17-59) U/L ALT 120 H (6-50) U/L Total Protein 5.8 L (6.3-8.2) g/dL Albumin 2.8 L (3.5-5.1) g/dL 01/23/25 Range/Units 10:14 WBC (4.5-10.0) K/mm3 RBC (4.6-6.20) M/mm3 Hct (42.0-52.0) % Plt Count (150-375) k/mm3 MPV (7.4-10.4) fl Immature Gran % (Auto) (0-0.5) % Neut % (Auto) (45.5-73.1) % Lymph % (Auto) (18.3-44.2) % Leslie % (Auto) (2.6-8.5) % Leslie # (Auto) (0.1-0.6) K/mm3 Abs Immat Gran (auto) (0.00-0.031) K/mm3 Absolute Neuts (auto) (1.3-6.7) K/mm3 APTT 61.5 H (22.3-36.8) Seconds Sodium (137-145) mmol/L Potassium (3.4-5.0) mmol/L BUN (9-20) mg/dL Creatinine (0.7-1.3) mg/dL Estimated GFR (59 - ) Calcium (8.4-10.2) mg/dL Total Bilirubin (0.2-1.3) mg/dL AST (17-59) U/L ALT (6-50) U/L Total Protein (6.3-8.2) g/dL Albumin (3.5-5.1) g/dL Diabetes panel 01/23/25 Range/Units 03:11 Sodium 135 L (137-145) mmol/L Potassium 3.1 L (3.4-5.0) mmol/L Chloride 104 (98-107) mmol/L Carbon Dioxide 22 (22-30) mmol/L BUN 46 H (9-20) mg/dL Creatinine 1.89 H (0.7-1.3) mg/dL Glucose 106 (65-110) mg/dL Calcium 8.0 L (8.4-10.2) mg/dL AST 182 H (17-59) U/L ALT 120 H (6-50) U/L Alkaline Phosphatase 102 (38-126) U/L Total Protein 5.8 L (6.3-8.2) g/dL Albumin 2.8 L (3.5-5.1) g/dL Calcium panel 01/23/25 Range/Units 03:11 Calcium 8.0 L (8.4-10.2) mg/dL Albumin 2.8 L (3.5-5.1) g/dL Pituitary panel 01/23/25 Range/Units 03:11 Sodium 135 L (137-145) mmol/L Potassium 3.1 L (3.4-5.0) mmol/L Chloride 104 (98-107) mmol/L Carbon Dioxide 22 (22-30) mmol/L BUN 46 H (9-20) mg/dL Creatinine 1.89 H (0.7-1.3) mg/dL Glucose 106 (65-110) mg/dL Calcium 8.0 L (8.4-10.2) mg/dL Adrenal panel 01/23/25 Range/Units 03:11 Sodium 135 L (137-145) mmol/L Potassium 3.1 L (3.4-5.0) mmol/L Chloride 104 (98-107) mmol/L Carbon Dioxide 22 (22-30) mmol/L BUN 46 H (9-20) mg/dL Creatinine 1.89 H (0.7-1.3) mg/dL Glucose 106 (65-110) mg/dL Calcium 8.0 L (8.4-10.2) mg/dL Total Bilirubin 3.2 H (0.2-1.3) mg/dL AST 182 H (17-59) U/L ALT 120 H (6-50) U/L Alkaline Phosphatase 102 (38-126) U/L Total Protein 5.8 L (6.3-8.2) g/dL Albumin 2.8 L (3.5-5.1) g/dL All other labs normal.
[2025-01-23] MEDS: HEPARIN SOD/D5W 100 UNITS/ML 25,000 UNITS/250 ML BAG 27 UNITS IV CONT (12:41)
--- NOTE | 2025-01-23 15:23 | PM.IMPN ---
Progress Note: A&P Assessment and Plan (1) Severe sepsis: Code(s): A41.9 - Sepsis, unspecified organism; R65.20 - Severe sepsis without septic shock Status: Acute (2) Multifocal pneumonia: Code(s): J18.8 - Other pneumonia, unspecified organism Status: Acute (3) Colitis: Code(s): K52.9 - Noninfective gastroenteritis and colitis, unspecified Status: Acute (4) Acute renal failure due to rhabdomyolysis: Code(s): N17.9 - Acute kidney failure, unspecified; M62.82 - Rhabdomyolysis Status: Acute (5) Transaminitis: Status: Acute (6) Acute dehydration: Code(s): E86.0 - Dehydration Status: Acute (7) Atrial fibrillation with rapid ventricular response: Code(s): I48.91 - Unspecified atrial fibrillation Status: Acute (8) GERD (gastroesophageal reflux disease): Qualifiers: Esophagitis presence: esophagitis presence not specified Qualified Code(s): K21.9 - Gastro-esophageal reflux disease without esophagitis Code(s): K21.9 - Gastro-esophageal reflux disease without esophagitis Status: Acute (9) Elevated troponin: Code(s): R79.89 - Other specified abnormal findings of blood chemistry Status: Acute (10) Memory impairment: Code(s): R41.3 - Other amnesia Status: Acute Plan Assessment and Plan (1) Severe sepsis: Meets sirs criteria:Fever,Tachycardia,Tachypnea Continue Zosyn and doxycycline Suspected source possible pneumonia Blood culture and urine culture pain Lactic acid coag covid,flu Monitor vitals hydrocotisone 200mg x 3 days,fludrocortisone (2) Multifocal pneumonia: Same as above (3) Colitis: Continue Zosyn (4) Acute renal failure due to rhabdomyolysis: Due to fall Continue IV hydration Echocardiogram pending Cr 1.6 from 1.36 Monitor I and O (5) Transaminitis, improving Right upper quadrant ultrasound reviwed and HIDA scan ordered Possibly due to rhabdomyolysis versus acute cholecystitis Monitor LFTs (6) Acute dehydration: Continue IV fluids (7) Atrial fibrillation with rapid ventricular response: Started on amiodarone Start metoprolol 25 mg p.o. q.d. for from tomorrow On heparin drip Will be transitioned to oral anticoagulant from tomorrow Pending echo (8) GERD (gastroesophageal reflux disease): K21.9 - Gastro-esophageal reflux disease without esophagitis (9) Elevated troponin: Possibly due to rhabdomyolysis ECHo pending Cardiology on board (10) Memory impairment: Code(s): R41.3 - Other amnesia Status: Acute Acute cholecystitis HIDA scan showed acute cholecystitis Contineu above abx and IVF Monitor cultures GI and Gen surgery consulted Plan Code status: Full code DVT prophylaxis: Heparin drip Subjective Date/time seen: 01/23/25 15:23 Interval history: Comfortable at bedside HIDA scan positive for Cholecystitis Review of Systems Review of Systems: Review of systems limited due to the patient's clinical condition and chronic hearing loss. Exam Narrative: Weight 115.8 kg BMI 31.1 Const: Other: Acutely ill-appearing, appears stated age, well-developed well-nourished HENMT: Other: Mucous membranes are dry, no oral pharyngeal erythema, head is normocephalic atraumatic Eyes: Other: Pupils are equal and reactive, mild scleral icterus, no conjunctival pallor, extraocular movements intact Neck: Other: No JVD, no lymphadenopathy Resp: Other: Marked tachypnea with respiratory rate in the mid 30s, accessory muscle use with abdominal respirations Cardio: Other: Irregularly irregular, tachycardic, 2+ bilateral radial pedal pulses, no JVD GI: Other: Markedly tender in the right upper quadrant area, abdomen was sent initially distended but on repeat evaluation after Armenta catheter lower abdomen is much softer, normoactive bowel sounds, no tympany : Other: Armenta catheter was placed was at bedside patient had turbid coke colored urine about 250 mL Skin: Other: Hot to touch, jaundice, 3-4 second cap refill Neuro: Other: Alert oriented to person, place and month confused as to the year thought the year was 2021 speech is clear, chronic hearing loss, no gross motor deficits noted on exam no facial asymmetry Extrem: Other: No clubbing, cyanosis or edema, moves all extremities equally, 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 Psych: Other: Appropriately anxious, otherwise pleasant and cooperative Objective Data Vital Signs Vital Signs: Vital Signs - 24 hr 01/22/25 15:54 01/22/25 16:00 01/22/25 16:00 Temperature 98.2 F Pulse Rate 87 81 Respiratory Rate 24 H Blood Pressure 148/82 H Pulse Oximetry 91 92 Oxygen Delivery Nasal Cannula Oxygen Flow Rate 4 01/22/25 17:05 01/22/25 18:00 01/22/25 19:57 Temperature Pulse Rate 87 Respiratory Rate Blood Pressure Pulse Oximetry 92 91 Oxygen Delivery Nasal Cannula Nasal Cannula Oxygen Flow Rate 4 4 01/22/25 20:00 01/22/25 20:00 01/22/25 22:00 Temperature 97.9 F Pulse Rate 82 76 76 Respiratory Rate 22 H Blood Pressure 139/79 Pulse Oximetry 91 Oxygen Delivery Oxygen Flow Rate 01/23/25 00:00 01/23/25 00:00 01/23/25 00:00 Temperature 97.8 F Pulse Rate 86 88 Respiratory Rate 24 H Blood Pressure 154/61 H Pulse Oximetry 91 92 Oxygen Delivery Nasal Cannula Oxygen Flow Rate 5 01/23/25 02:10 01/23/25 03:40 01/23/25 04:00 Temperature 99.3 F Pulse Rate 88 85 Respiratory Rate 25 H Blood Pressure 144/78 H Pulse Oximetry 91 91 Oxygen Delivery Nasal Cannula Oxygen Flow Rate 5 01/23/25 04:00 01/23/25 06:26 01/23/25 07:42 Temperature 98.2 F Pulse Rate 77 89 84 Respiratory Rate 20 Blood Pressure 144/79 H Pulse Oximetry 93 Oxygen Delivery Oxygen Flow Rate 01/23/25 08:00 01/23/25 10:00 01/23/25 10:43 Temperature Pulse Rate 87 87 Respiratory Rate Blood Pressure 142/79 H Pulse Oximetry Oxygen Delivery Oxygen Flow Rate 01/23/25 10:43 01/23/25 10:44 01/23/25 10:44 Temperature Pulse Rate 87 Respiratory Rate Blood Pressure 134/64 141/78 H Pulse Oximetry Oxygen Delivery Oxygen Flow Rate 01/23/25 11:15 01/23/25 11:30 01/23/25 12:00 Temperature 97.5 F L Pulse Rate 78 81 84 Respiratory Rate 20 Blood Pressure 150/84 H Pulse Oximetry 95 Oxygen Delivery Oxygen Flow Rate 01/23/25 13:49 01/23/25 13:57 01/23/25 13:58 Temperature Pulse Rate 87 Respiratory Rate Blood Pressure Pulse Oximetry 91 Oxygen Delivery Nasal Cannula Nasal Cannula Oxygen Flow Rate 4 4 Intake/Output Intake/Output: Intake & Output 01/20/25 01/21/25 01/22/25 01/23/25 23:59 23:59 23:59 23:59 Intake Total 1.3 5781.3 3411.8 528.0 Output Total 1500 1800 1875 Balance 1.3 4281.3 1611.8 -1347.0 Meds/Results Medications: Active Medications Generic Name Dose Route Start Last Admin Trade Name Freq PRN Reason Stop Dose Admin Acetaminophen 650 mg 01/21/25 02:19 01/21/25 09:30 Acetaminophen 325 Mg Tablet PO 650 mg Q4H PRN Administration Mild Pain (1-3) or Fever Fish Oil 1 gm 01/21/25 09:00 01/23/25 11:15 [place] 3 Polyunsat Fatty Acids 1 Gm Cap PO 1 gm DAILY DREAD Administration Fluticasone Propionate 2 spray 01/23/25 21:00 Fluticasone Propionate 0.05% Na Spr 16 Gm Btl (*Bkc) NASAL Q12HR DREAD Heparin Sodium (Porcine) 8,000 units 01/21/25 20:58 01/22/25 20:54 Heparin Sodium 5,000 Units/Ml Vial IV PUSH 8,000 units PRN PRN Administration aPTT less than 55 seconds Heparin Sodium (Porcine) 4,000 units 01/21/25 20:58 01/23/25 11:51 Heparin Sodium 5,000 Units/Ml Vial IV PUSH 4,000 units PRN PRN Administration aPTT 55 - 70 seconds Doxycycline Hyclate 100 mg/ 100 mls @ 100 mls/hr 01/21/25 09:00 01/23/25 12:15 Sodium Chloride IVPB 01/25/25 21:59 Infused Q12HR DREAD Infusion Piperacillin Sod/Tazobactam 50 mls @ 100 mls/hr 01/21/25 12:00 01/23/25 13:29 Sod 3.375 gm/ Sodium Chloride IVPB 100 mls/hr Q6HR DREAD Administration Heparin Sodium/Dextrose 25,000 units in 250 mls @ 27 mls/hr 01/21/25 21:00 01/23/25 11:52 Heparin Sodium/D5w 100 Units/Ml IV CONT 2,700 units/hr .Q9H16M DREAD 27 mls/hr Protocol Titration 2,700 UNITS/HR Metoprolol Succinate 25 mg 01/22/25 09:00 01/23/25 11:15 Metoprolol Succinate Ext Rel 25 Mg Tabcr PO 25 mg QAM DREAD Administration Ondansetron HCl 4 mg 01/21/25 02:19 Ondansetron Inj 4 Mg/2 Ml Vial IV PUSH Q4H PRN Nausea Pantoprazole Sodium 40 mg 01/23/25 21:00 Pantoprazole 40 Mg Tablet PO Q12HR [facility] Radiology Results: ITS Impressions Chest/Abdomen/Pelvis CTA 01/21/25 08:52 Impression: Distended gallbladder with suspected mild pericholecystic inflammatory change, suspicious for acute cholecystitis. Correlate clinically. Consider ultrasound and/or HIDA scan for further evaluation as indicated. Mild bibasilar pulmonary edema/atelectasis. Upper Quadrant Ultrasound 01/21/25 12:09 IMPRESSION: Limited evaluation of the pancreas secondary to overlying bowel gas. Layering sludge within the distended gallbladder. Borderline gallbladder wall thickening without pericholecystic fluid. Trace surrounding inflammatory change on CT examination performed approximately 12 hours earlier with indeterminate findings on ultrasound examination. If clinical suspicion persists for acalculous cholecystitis, HIDA scan would provide additional information. Chest X-Ray 01/22/25 18:58 Impression: 1: Persistent bibasilar atelectasis/scarring without significant change. Hepatobiliary Scan Nuclear Medicine 01/23/25 10:21 IMPRESSION: 1. Nonvisualization of the gallbladder and the 30 minutes following morphine administration consistent with acute cholecystitis. Labs Labs: Laboratory Results - last 24 hr 01/22/25 01/23/25 01/23/25 19:45 03:11 10:14 WBC 13.8 H RBC 4.47 L Hgb 14.1 Hct 40.4 L MCV 90.4 MCH 31.5 MCHC 34.9 RDW 13.7 Plt Count 128 L MPV 10.5 H Immature Gran % (Auto) 0.7 H Neut % (Auto) 82.0 H Lymph % (Auto) 6.6 L [place] % (Auto) 10.1 H Eos % (Auto) 0.4 Baso % (Auto) 0.2 Lymph # (Auto) 0.91 [place] # (Auto) 1.4 H Eos # (Auto) 0.1 Baso # (Auto) 0.0 Abs Immat Gran (auto) 0.10 H Absolute Neuts (auto) 11.3 H Absolute Nucleated RBC 0.000 Nucleated RBC % 0.0 APTT 51.5 H 74.2 H 61.5 H Sodium 135 L Potassium 3.1 L Chloride 104 Carbon Dioxide 22 Anion Gap 9 BUN 46 H Creatinine 1.89 H Estim Creat Clear Calc 43 Estimated GFR 35 L Glucose 106 Calcium 8.0 L Magnesium 2.0 Total Bilirubin 3.2 H AST 182 H ALT 120 H Alkaline Phosphatase 102 Total Protein 5.8 L Albumin 2.8 L Quality VTE Prophylaxis VTE prophylaxis: pharmacologic ordered (Heparin GGT per protocol)
[2025-01-23] MEDS: SODIUM CHLORIDE 0.9% IV 1,000 ML 100 ML IV CONT (17:07)
[2025-01-23 18:36] LABS: Partial Thromboplastin Time 67.7 Seconds (22.3-36.8)
[2025-01-23] MEDS: PANTOPRAZOLE 40 MG TABLET PO (20:06)
[2025-01-23] MEDS: HEPARIN SOD/D5W 100 UNITS/ML 25,000 UNITS/250 ML BAG 29 UNITS IV CONT (22:43)
--- NOTE | 2025-01-23 23:13 | PC.NURSE ---
patient with increased shortness of breath, puffy, flushed face, lung sounds diminished, denies complaints, no change in telemetry, no change in vs or pulse ox. Provider called. Stat chest xray completed.
[2025-01-23] MEDS: FLUTICASONE PROPIONATE 0.05% NA SPR 16 GM BTL (*BKC) 2 SPRAY NASAL (23:49)
[2025-01-23] MEDS: POTASSIUM CHLORIDE 20 MEQ ER TABLET 40 MEQ PO (23:50)
--- NOTE | 2025-01-23 23:57 | PM.EVENT ---
Event Note Event Note Event Note: I am notified by Farrah MARIN that pt is complaining of some dyspnea and that he appeared puffy. Pt with stable SPO2 at 91-94% on 4L supplemental oxygen, however, he had IVF restarted today. Stat CXR was ordered and it shows some moderate pulmonary edema that was not present on CXR performed earlier this AM. IVF stopped and pt was given Lasix 40 mg IVPx1.
[2025-01-24] VITALS (11 sets, daily range): BP systolic 124–156; BP diastolic 77–81; PULSE 73–97; RESP 22–24; TEMP 36.7–36.9; O2SAT 88–94
[2025-01-24] MEDS: FUROSEMIDE INJ 40 MG/4 ML VIAL IV PUSH (00:09)
[2025-01-24 01:14] LABS: Hematocrit 42.7 % (42.0-52.0); Hemoglobin 14.7 g/dL (14.0-18.0); Immature Granulocyte Percent A 1.4 % (0-0.5); Lymphocytes Absolute Auto 1.14 K/mm3 (0.9-3.2); Mean Corpuscular HGB Conc 34.4 g/dl (32-36); Mean Corpuscular Hemoglobin 31.3 pg (26-34); Mean Corpuscular Volume 90.9 fl (80-100); Nucleated Red Blood Cells Absolute Auto 0.000 K/mm3 (0.0-0.012); Nucleated Red Blood Cells Perc 0.0 % (0.0-0.2); Platelet Count Result 166 k/mm3 (150-375); Red Blood Count 4.70 M/mm3 (4.6-6.20); White Blood Count 14.4 K/mm3 (4.5-10.0)
--- NOTE | 2025-01-24 01:27 | PC.NURSE ---
Lasix administered. monitoring output. Patient sleeping without complaints or shortness of breath.
[2025-01-24 01:30] LABS: Partial Thromboplastin Time 92.9 Seconds (22.3-36.8)
[2025-01-24 01:41] LABS: Alanine Aminotransferase 131 U/L (6-50); Albumin Level 2.9 g/dL (3.5-5.1); Alkaline Phosphatase 115 U/L (38-126); Anion Gap 7 mmol/L (4-12); Aspartate Amino Transferase 164 U/L (17-59); Bilirubin,Total 2.9 mg/dL (0.2-1.3); Blood Urea Nitrogen 51 mg/dL (9-20); Calcium 8.1 mg/dL (8.4-10.2); Carbon Dioxide 25 mmol/L (22-30); Chloride 103 mmol/L (98-107); Estimated CRCL calculation 40 ml/min; Estimated Glomerular Filt Rate 32; Glucose 111 mg/dL (65-110); Magnesium 2.0 mg/dL (1.6-2.3); Potassium 3.0 mmol/L (3.4-5.0); Sodium 135 mmol/L (137-145); Total Protein 6.1 g/dL (6.3-8.2)
[2025-01-24] MEDS: PIPERACILLIN/TAZOBACTAM SOD 3.375 GM in SODIUM CHLORIDE 0.9% IV 50 ML 100 ML IVPB ×4 (06:22→23:11)
--- NOTE | 2025-01-24 07:47 | WPDGICN ---
Assessment and Plan Assessment and plan (1) Acute cholecystitis: Code(s): K81.0 - Acute cholecystitis Status: Acute (2) Elevated LFTs: Code(s): R79.89 - Other specified abnormal findings of blood chemistry Status: Acute (3) Severe sepsis: Code(s): A41.9 - Sepsis, unspecified organism; R65.20 - Severe sepsis without septic shock Status: Acute (4) Acute renal failure due to rhabdomyolysis: Code(s): N17.9 - Acute kidney failure, unspecified; M62.82 - Rhabdomyolysis Status: Acute Plan 1. Acute cholecystitis/elevated LFT's: Patient presented to the ER 01/20 with complaints of generalized weakness and rapid heart rate. Patient was found on his floor at his own household and he has been lying on the ground since 10:00 a.m. for the patient as he was feeling too weak to get up. He was admitted for severe sepsis, pneumonia, AKF, rhabdo and acute cholecystitis. CTA showed distended gallbladder with suspected mild pericholecystic inflammatory change, suspicious for acute cholecystitis. Ultrasound showed layering sludge within the distended gallbladder. Borderline gallbladder wall thickening without pericholecystic fluid, CBD measuring 6.4 mm. HIDA scan with nonvisualization of the gallbladder and the 30 minutes following morphine administration consistent with acute cholecystitis. Labs today: WBC's 14, total bili 2.9, AST 164, ALT 131 and Alk Phos 115. 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 Melena: Per nursing staff patient was noted to have a black stool today. H/H has remained stable throughout the admission. Labs today show WBC is 14, HGB 15, HCT 43, MCV 91, platelets 166. Given stable blood count there is no indication for emergent EGD will continue to monitor for continued bleeding or H/H drop 3. Severe sepsis/AKF due to rhabdomyolysis: Management per primary care team. Thank you very much for allowing me to share in the care of this very nice patient. This report may have been done utilizing a voice recognition system. Attempts have been made to correct errors. However, there may be uncorrected grammatical, spelling, and recognition errors present. GI Consult Note Consult date/time: 01/24/25 07:47 Reason for consult: Acute cholecytitis HPI: Oleg Tay is a 74 year old male with PMSH of HLD, vertigo, memory impairment, HTN, psoriasis, Hx of esophageal stricture, insomnia and GERD. He presented to the ER for complaints of generalized weakness and rapid heart rate. Patient was found on his floor at his own household and he has been lying on the ground since 10:00 a.m. for the patient as he was feeling too weak to get up. Patient was admitted for sepsis, pneumonia, AKF and rhabdomyolysis. GI has been consulted to acute cholecystitis. Patient denies any GI complaints during today's visit. He denies any abdominal pain, nausea, vomiting, bloating, swallowing difficulty, reflux, early satiety, appetite loss or weight loss. He states that prior to his admission he was having regular formed bowel movements every 1-2 days. Denied any diarrhea, constipation, hematochezia, or melena prior to admission. Per nursing staff the patient had 1 dark stool today. He denies any alcohol, tobacco or marijuana use. Family history per patient negative for GI cancer or IBD. ENDOSCOPY HISTORY: Patient is unable to say if he has ever had an EGD or colonoscopy LABS AND STOOL STUDIES: La0bs 01/24/2025: Sodium 135, potassium 3.0, BUN 51, creatinine 2.03, GFR 32, calcium 8.1, lactic acid 1.1, magnesium 2.0 WBC 14, Hgb 15, Hct 43, MCV 91, platelets 166 Total bilirubin 2.9, AST 164, ALT 131, Alkaline Phos 115, albumin 2.9 Labs 01/20/2025: Sodium 131, potassium 3.5, BUN 29, creatinine 1.36, GFR 51, calcium 9.3, lactic acid 2.2 WBC 16, Hgb 18, Hct 50, MCV 90, platelets 138, INR 1.2 Total bilirubin 5.5, AST 210, ALT 73, Alkaline Phos 89, albumin 4.1 [place] [address] IMAGING: HIDA scan 01/23/2025: FINDINGS: There is normal clearance of radiotracer from the blood pool. There is homogeneous tracer uptake by the liver. Activity progresses to the common bile duct and small bowel by 25 minutes. There is progressive accumulation of activity in the bowel throughout the subsequent imaging but without evident gallbladder activity which is consistent with acute cholecystitis. IMPRESSION: 1. Nonvisualization of the gallbladder and the 30 minutes following morphine administration consistent with acute cholecystitis. CTA chest/abd/pelvis w/contrast 01/21/2025: Impression: Distended gallbladder with suspected mild pericholecystic inflammatory change, suspicious for acute cholecystitis. Correlate clinically. Consider ultrasound and/or HIDA scan for further evaluation as indicated. Mild bibasilar pulmonary edema/atelectasis. Abdominal Ultrasound 01/21/2025: IMPRESSION: Limited evaluation of the pancreas secondary to overlying bowel gas. Layering sludge within the distended gallbladder. Borderline gallbladder wall thickening without pericholecystic fluid. Trace surrounding inflammatory change on CT examination performed approximately 12 hours earlier with indeterminate findings on ultrasound examination. If clinical suspicion persists for acalculous cholecystitis, HIDA scan would provide additional information. Review of Systems Constitutional: Constitutional: Reports as per HPI ENT: Reports as per HPI Cardiovascular: Cardiovascular: Reports as per HPI, Denies chest pain and Denies dyspnea Respiratory: Respiratory: Denies cough and Denies dyspnea Gastrointestinal: Gastrointestinal: Reports as per HPI Musculoskeletal: Musculoskeletal: Reports as per HPI Integumentary/Breasts: Skin/Breast: Reports as per HPI Psychiatric: Psychiatric: Reports as per HPI Endocrine: Endocrine: Reports no additional endocrine complaints Hematologic/Lymphatic: Hematologic/Lymphatic: Reports no additional hematologic/lymphatic complaints REPLACED BY [facility] Past Medical History Medical History Erectile dysfunction Mixed hyperlipidemia Vitamin D deficiency Positional vertigo Memory impairment Hypersomnolence Trigger finger Bilateral hand numbness Benign essential hypertension Psoriasis Stricture of esophagus Insomnia Kidney stone Hearing loss DJD (degenerative joint disease) GERD (gastroesophageal reflux disease) Pre-diabetes Surgical History Surgical History Status post total left knee replacement 08/02/2022 Hx of arthroscopic knee surgery Hx of detached retina repair Family History Family History Father Family history of congestive heart failure Family history of cardiovascular disease Family history of heart disease in male family member before age 55 Social History Social History (Updated 01/22/25 @ 02:28 by Madai Carrero, DO) Social History: He has been since 2020. He lives by himself in [place]. 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 He is a lifetime nonsmoker. He drinks between 1-4 alcoholic beverages a month. He denies illicit substance use. Code status: Full code (patient would not want long-term ventilatory support) Surrogate decision makers: Shaunna (daughter) and son Smoking status: Never smoker Second hand tobacco smoke exposure: No Alcohol intake: current Drinks per week: 2 Alcohol use details: STATES 2-4 BEERS/WEEK Substance use: never Substance use type: does not use Lack of Transportation: No Lack of Food: Never True Current Housing: Decline to Answer Concerned About Future Housing: Decline to Answer Difficulty Paying Gas/Electric Bills: Decline to Answer Difficulty Paying for Meds: Decline to Answer Currently Unemployed: Decline to Answer Education: Decline to Answer Difficulty w/ Childcare or Family Care: Decline to Answer Living arrangements: alone Occupation/Education: retired Gender identity (if verbalized by the patient): Male Spiritual care concerns: No Agree to blood products: Yes Meds Home Medications and Allergies Home Medications ?Medication ?Instructions ?Recorded ?Confirmed ?Type Prevagen 10 mg BYMOUTH . daily 03/16/24 01/21/25 History omega-3 fatty acids-fish oil 360 1 cap PO DAILY 03/16/24 01/21/25 History mg-1,200 mg capsule (Fish Oil) pyridoxine (vitamin B6) 100 mg 100 mg PO DAILY 03/16/24 01/21/25 History tablet pravastatin 40 mg tablet See Rx Instructions .Route 07/24/24 01/21/25 Rx .COMPLEX #90 tabs ascorbic acid (vitamin C) 500 mg 500 mg PO DAILY 07/30/24 01/21/25 History capsule thiamine HCl (vitamin B1) 100 mg 100 mg PO DAILY 07/30/24 01/21/25 History capsule fluticasone propionate 50 2 spray intranasal BID #16 mL 06/25/25 08/18/25 Rx mcg/actuation nasal spray,suspension (Flonase Allergy Relief) meloxicam 15 mg tablet See Rx Instructions .Route 12/13/24 01/21/25 Rx .COMPLEX #30 tabs omeprazole 40 mg capsule,delayed See Rx Instructions .Route 12/13/24 01/21/25 Rx release .COMPLEX #180 caps valsartan 320 mg tablet 320 mg PO DAILY #90 tabs 12/13/24 01/21/25 Rx zolpidem 10 mg tablet 10 mg PO QHS #30 tabs 12/13/24 01/21/25 Rx donepezil 5 mg tablet 5 mg PO QHS #90 tabs 01/14/25 01/21/25 Rx Allergies Allergy/AdvReac Type Severity Reaction Status Date / Time No Known Allergies Allergy Verified 12/19/24 07:04 Vital Signs Vital Signs - 24 hr 01/23/25 08:00 01/23/25 10:00 01/23/25 10:43 Temperature Pulse Rate 87 87 Respiratory Rate Blood Pressure 142/79 H Pulse Oximetry Oxygen Delivery Oxygen Flow Rate Fraction of Inspired Oxygen 01/23/25 10:43 01/23/25 10:44 01/23/25 10:44 Temperature Pulse Rate 87 Respiratory Rate Blood Pressure 134/64 141/78 H Pulse Oximetry Oxygen Delivery Oxygen Flow Rate Fraction of Inspired Oxygen 01/23/25 11:15 01/23/25 11:30 01/23/25 12:00 Temperature 97.5 F L Pulse Rate 78 81 84 Respiratory Rate 20 Blood Pressure 150/84 H Pulse Oximetry 95 Oxygen Delivery Oxygen Flow Rate Fraction of Inspired Oxygen 01/23/25 13:49 01/23/25 13:57 01/23/25 13:58 Temperature Pulse Rate 87 Respiratory Rate Blood Pressure Pulse Oximetry 91 Oxygen Delivery Nasal Cannula Nasal Cannula Oxygen Flow Rate 4 4 Fraction of Inspired Oxygen 01/23/25 16:00 01/23/25 16:00 01/23/25 18:00 Temperature 97.7 F Pulse Rate 85 83 85 Respiratory Rate 18 Blood Pressure 157/82 H Pulse Oximetry 95 Oxygen Delivery Oxygen Flow Rate Fraction of Inspired Oxygen 01/23/25 20:00 01/23/25 20:00 01/23/25 20:32 Temperature Pulse Rate 79 88 Respiratory Rate 20 Blood Pressure Pulse Oximetry 92 94 Oxygen Delivery Nasal Cannula Nasal Cannula Oxygen Flow Rate 4.5 4 Fraction of Inspired Oxygen 36 01/23/25 23:25 01/24/25 00:00 01/24/25 04:00 Temperature 97.8 F Pulse Rate 85 94 97 Respiratory Rate 22 H Blood Pressure 151/91 H Pulse Oximetry 92 Oxygen Delivery Oxygen Flow Rate Fraction of Inspired Oxygen Exam Const: General: cooperative, healthy appearing, comfortable, no acute distress and well developed Orientation/consciousness: oriented to person, oriented to place, oriented to time and patient oriented x3 HENMT: Head: normal to inspection, normocephalic and atraumatic Mouth: Yes Normal oral and palatal mucosa present and Yes moist mucous membranes Eyes: General: appearance normal, both eyes and all related structures Conjunctivae: conjunctivae normal Sclera: sclerae normal Pupils: Equal, round and reactive pupils present Neck: Neck: normal visual inspection Chest: Chest palpation & inspection: normal inspection of the chest Resp: Effort & Inspection: normal respiratory effort and able to speak in complete sentences Auscultation: clear to auscultation bilaterally Cardio: Jugular venous distension: no JVD Rate: regular rate Rhythm: regular rhythm Heart sounds: S1 normal heart sound present and S2 normal heart sound present GI: Inspection: normal to inspection GI Palp: Yes Soft to palpation and Yes No hepatosplenomegaly present Auscultation: normal bowel sounds Rectal Exam: deferred Skin: General skin exam: normal color and no rashes or lesions noted Neuro: General: oriented to person, oriented to place, oriented to time and patient oriented x3 Cranial nerves: Yes Equal, round and reactive pupils present Speech: normal speech Other: mild confusion noted during exam Extrem: General: normal to inspection and no clubbing, cyanosis or edema Psych: Appearance: grossly normal and well kempt Affect: normal affect Results Labs 01/24/25 01:08 01/24/25 01:08 Labs: Short CBC 01/24/25 Range/Units 01:08 WBC 14.4 H (4.5-10.0) K/mm3 Hgb 14.7 (14.0-18.0) g/dL Hct 42.7 (42.0-52.0) % Plt Count 166 (150-375) k/mm3 [facility] 01/24/25 01:08 Sodium 135 L Potassium 3.0 L Chloride 103 Carbon Dioxide 25 BUN 51 H Creatinine 2.03 H Glucose 111 H Calcium 8.1 L Liver Function 01/24/25 Range/Units 01:08 Total Bilirubin 2.9 H (0.2-1.3) mg/dL AST 164 H (17-59) U/L ALT 131 H (6-50) U/L Alkaline Phosphatase 115 (38-126) U/L Albumin 2.9 L (3.5-5.1) g/dL
[2025-01-24] MEDS: HEPARIN SOD/D5W 100 UNITS/ML 25,000 UNITS/250 ML BAG 29 UNITS IV CONT (07:56)
[2025-01-24] MEDS: DOXYCYCLINE IV 100 MG in SODIUM CHLORIDE 0.9% IV 100 ML IVPB (07:58)
[2025-01-24] MEDS: FLUTICASONE PROPIONATE 0.05% NA SPR 16 GM BTL (*BKC) 2 SPRAY NASAL ×2 (07:59→20:19)
[2025-01-24 08:00] LABS: Partial Thromboplastin Time 86.1 Seconds (22.3-36.8)
[2025-01-24] MEDS: PANTOPRAZOLE 40 MG TABLET PO (08:00)
[2025-01-24] MEDS: OMEGA 3 POLYUNSAT FATTY ACIDS 1 GM CAP PO (08:00)
[2025-01-24] MEDS: METOPROLOL SUCCINATE EXT REL 25 MG TABCR PO (08:00)
--- NOTE | 2025-01-24 11:10 | P.PNGS_ITS ---
Progress Note: A&P Assessment and Plan (1) Transaminitis: Status: Acute Assessment and Plan: * No immediate surgical intervention necessary, as patient is still not experiencing any right upper quadrant pain. Elevated liver enzymes could be due to rhabdomyolysis or acute respiratory failure. * If patient develops right upper quadrant pain or any other symptoms of acute cystitis we will consider percutaneous cholecystostomy tube. Due to patient's comorbidities, he is at high surgical risk for respiratory failure to wean off of vent for lap dalia. * Continue IV Zosyn and doxycycline. * We will sign off of the patinet at this time. Follow up in two weeks in outpatinet clinic. (2) Atrial fibrillation with rapid ventricular response: Code(s): I48.91 - Unspecified atrial fibrillation Status: Acute Assessment and Plan: Patient back in normal sinus rhythm. Continue metoprolol. Consider switching from heparin to Lovenox or other short-acting anticoagulant in case patient were to need a more urgent surgery of drainage of his gallbladder. (3) Acute renal failure due to rhabdomyolysis: Code(s): N17.9 - Acute kidney failure, unspecified; M62.82 - Rhabdomyolysis Status: Acute Assessment and Plan: BUN and creatinine remains elevated. Lactic acid normalized. Plan Discussed patient's case and plan of care with Dr. Huang. Subjective Subjective Date/Time Seen: 01/24/25 11:10 Patient reports: no new complaints Interval history: Patient doing well today. Still no complaints of abdominal pain. WBC 14.4. Bilirubin and liver enzymes remain elevated. Lactic acid 1.1. On 5 L of oxygen via nasal cannula. Tolerating diet without nausea or vomiting. Bowel movement this morning. Exam GI: Inspection: non-distended GI Palp: Yes Soft to palpation and No Tenderness to palpation present (GI) Auscultation: normal bowel sounds Objective Data Vital Signs Vital Signs: Vital Signs - 24 hr 01/23/25 11:15 01/23/25 11:30 01/23/25 12:00 Temperature 97.5 F L Pulse Rate 78 81 84 Respiratory Rate 20 Blood Pressure 150/84 H Pulse Oximetry 95 Oxygen Delivery Oxygen Flow Rate Fraction of Inspired Oxygen 01/23/25 13:49 01/23/25 13:57 01/23/25 13:58 Temperature Pulse Rate 87 Respiratory Rate Blood Pressure Pulse Oximetry 91 Oxygen Delivery Nasal Cannula Nasal Cannula Oxygen Flow Rate 4 4 Fraction of Inspired Oxygen 01/23/25 16:00 01/23/25 16:00 01/23/25 18:00 Temperature 97.7 F Pulse Rate 85 83 85 Respiratory Rate 18 Blood Pressure 157/82 H Pulse Oximetry 95 Oxygen Delivery Oxygen Flow Rate Fraction of Inspired Oxygen 01/23/25 20:00 01/23/25 20:00 01/23/25 20:32 Temperature Pulse Rate 79 88 Respiratory Rate 20 Blood Pressure Pulse Oximetry 92 94 Oxygen Delivery Nasal Cannula Nasal Cannula Oxygen Flow Rate 4.5 4 Fraction of Inspired Oxygen 36 01/23/25 23:25 01/24/25 00:00 01/24/25 04:00 Temperature 97.8 F Pulse Rate 85 94 97 Respiratory Rate 22 H Blood Pressure 151/91 H Pulse Oximetry 92 Oxygen Delivery Oxygen Flow Rate Fraction of Inspired Oxygen 01/24/25 07:38 01/24/25 08:00 01/24/25 08:26 Temperature 98.5 F Pulse Rate 92 86 Respiratory Rate 22 H Blood Pressure 124/80 Pulse Oximetry 93 Oxygen Delivery Nasal Cannula Oxygen Flow Rate 5 Fraction of Inspired Oxygen Intake/Output Intake/Output: Intake & Output 01/21/25 01/22/25 01/23/25 01/24/25 23:59 23:59 23:59 23:59 Intake Total 5781.3 3411.8 1140.0 1911.7 Output Total 1500 1800 2250 4250 Balance 4281.3 1611.8 -1110.0 -2338.3 Meds/Results Medications: Active Medications Generic Name Dose Route Start Last Admin Trade Name Freq PRN Reason Stop Dose Admin Acetaminophen 650 mg 01/21/25 02:19 01/21/25 09:30 Acetaminophen 325 Mg Tablet PO 650 mg Q4H PRN Administration Mild Pain (1-3) or Fever Fish Oil 1 gm 01/21/25 09:00 01/24/25 08:00 Thayer 3 Polyunsat Fatty Acids 1 Gm Cap PO 1 gm DAILY DREAD Administration Fluticasone Propionate 2 spray 01/23/25 21:00 01/24/25 07:59 Fluticasone Propionate 0.05% Na Spr 16 Gm Btl (*Bkc) NASAL 2 spray Q12HR DREAD Administration Heparin Sodium (Porcine) 8,000 units 01/21/25 20:58 01/22/25 20:54 Heparin Sodium 5,000 Units/Ml Vial IV PUSH 8,000 units PRN PRN Administration aPTT less than 55 seconds Heparin Sodium (Porcine) 4,000 units 01/21/25 20:58 01/23/25 19:04 Heparin Sodium 5,000 Units/Ml Vial IV PUSH 4,000 units PRN PRN Administration aPTT 55 - 70 seconds Doxycycline Hyclate 100 mg/ 100 mls @ 100 mls/hr 01/21/25 09:00 01/24/25 07:58 Sodium Chloride IVPB 01/25/25 21:59 100 mls/hr Q12HR DREAD Administration Piperacillin Sod/Tazobactam 50 mls @ 100 mls/hr 01/21/25 12:00 01/24/25 06:22 Sod 3.375 gm/ Sodium Chloride IVPB 100 mls/hr Q6HR DREAD Administration Heparin Sodium/Dextrose 25,000 units in 250 mls @ 29 mls/hr 01/21/25 21:00 08:58 Heparin Sodium/D5w 100 Units/Ml IV CONT 2,900 units/hr .Q8H38M DREAD 29 mls/hr Protocol Titration 2,900 UNITS/HR Metoprolol Succinate 25 mg 01/22/25 09:00 01/24/25 08:00 Metoprolol Succinate Ext Rel 25 Mg Tabcr PO 25 mg QAM DREAD Administration Ondansetron HCl 4 mg 01/21/25 02:19 Ondansetron Inj 4 Mg/2 Ml Vial IV PUSH Q4H PRN Nausea Pantoprazole Sodium 40 mg 01/24/25 21:00 Pantoprazole Sodium Iv 40 Mg Vial IV PUSH Q12HR [facility] Radiology Results: ITS Impressions Chest/Abdomen/Pelvis CTA 01/21/25 08:52 Impression: Distended gallbladder with suspected mild pericholecystic inflammatory change, suspicious for acute cholecystitis. Correlate clinically. Consider ultrasound and/or HIDA scan for further evaluation as indicated. Mild bibasilar pulmonary edema/atelectasis. Upper Quadrant Ultrasound 01/21/25 12:09 IMPRESSION: Limited evaluation of the pancreas secondary to overlying bowel gas. Layering sludge within the distended gallbladder. Borderline gallbladder wall thickening without pericholecystic fluid. Trace surrounding inflammatory change on CT examination performed approximately 12 hours earlier with indeterminate findings on ultrasound examination. If clinical suspicion persists for acalculous cholecystitis, HIDA scan would provide additional information. Hepatobiliary Scan Nuclear Medicine 01/23/25 10:21 IMPRESSION: 1. Nonvisualization of the gallbladder and the 30 minutes following morphine administration consistent with acute cholecystitis. Chest X-Ray 01/23/25 23:23 IMPRESSION: Left-sided pleural effusion with adjacent compressive atelectasis moderate pulmonary vascular congestion. Redemonstration platelike atelectasis within the right lung base Labs Labs: Laboratory Results - last 24 hr 01/23/25 01/23/25 01/24/25 10:14 18:14 01:08 WBC 14.4 H RBC 4.70 Hgb 14.7 Hct 42.7 MCV 90.9 MCH 31.3 MCHC 34.4 RDW 13.9 Plt Count 166 MPV 10.4 Immature Gran % (Auto) 1.4 H Neut % (Auto) 78.9 H Lymph % (Auto) 7.9 L [place] % (Auto) 10.7 H Eos % (Auto) 0.8 Baso % (Auto) 0.3 Lymph # (Auto) 1.14 [place] # (Auto) 1.5 H Eos # (Auto) 0.1 Baso # (Auto) 0.1 Abs Immat Gran (auto) 0.20 H Absolute Neuts (auto) 11.4 H Absolute Nucleated RBC 0.000 Nucleated RBC % 0.0 APTT 61.5 H 67.7 H 92.9 H Sodium 135 L Potassium 3.0 L Chloride 103 Carbon Dioxide 25 Anion Gap 7 BUN 51 H Creatinine 2.03 H Estim Creat Clear Calc 40 Estimated GFR 32 L Glucose 111 H Lactic Acid 1.1 Calcium 8.1 L Magnesium 2.0 Total Bilirubin 2.9 H AST 164 H ALT 131 H Alkaline Phosphatase 115 Total Protein 6.1 L Albumin 2.9 L 01/24/25 07:24 WBC RBC Hgb Hct MCV MCH MCHC RDW Plt Count MPV Immature Gran % (Auto) Neut % (Auto) Lymph % (Auto) [place] % (Auto) Eos % (Auto) Baso % (Auto) Lymph # (Auto) [place] # (Auto) Eos # (Auto) Baso # (Auto) Abs Immat Gran (auto) Absolute Neuts (auto) Absolute Nucleated RBC Nucleated RBC % APTT 86.1 H Sodium Potassium Chloride Carbon Dioxide Anion Gap BUN Creatinine Estim Creat Clear Calc Estimated GFR Glucose Lactic Acid Calcium Magnesium Total Bilirubin AST ALT Alkaline Phosphatase Total Protein Albumin
[2025-01-24] MEDS: ENOXAPARIN 120 MG/0.8 ML SYRINGE 115 MG SUB-Q ×2 (13:31→23:10)
--- NOTE | 2025-01-24 17:22 | P.PNIM_ITS ---
Progress Note: A&P Assessment and Plan (1) Severe sepsis: Code(s): A41.9 - Sepsis, unspecified organism; R65.20 - Severe sepsis without septic shock Status: Acute (2) Multifocal pneumonia: Code(s): J18.8 - Other pneumonia, unspecified organism Status: Acute (3) Colitis: Code(s): K52.9 - Noninfective gastroenteritis and colitis, unspecified Status: Acute (4) Acute renal failure due to rhabdomyolysis: Code(s): N17.9 - Acute kidney failure, unspecified; M62.82 - Rhabdomyolysis Status: Acute (5) Transaminitis: Status: Acute (6) Acute dehydration: Code(s): E86.0 - Dehydration Status: Acute (7) Atrial fibrillation with rapid ventricular response: Code(s): I48.91 - Unspecified atrial fibrillation Status: Acute (8) GERD (gastroesophageal reflux disease): Qualifiers: Esophagitis presence: esophagitis presence not specified Qualified Code(s): K21.9 - Gastro-esophageal reflux disease without esophagitis Code(s): K21.9 - Gastro-esophageal reflux disease without esophagitis Status: Acute (9) Elevated troponin: Code(s): R79.89 - Other specified abnormal findings of blood chemistry Status: Acute (10) Memory impairment: Code(s): R41.3 - Other amnesia Status: Acute Plan Assessment and Plan (1) Severe sepsis: Meets sirs criteria:Fever,Tachycardia,Tachypnea Continue Zosyn and doxycycline Suspected source possible pneumonia Blood culture and urine culture pain Lactic acid coag covid,flu Monitor vitals hydrocotisone 200mg x 3 days,fludrocortisone (2) Multifocal pneumonia: CT chest ordered to rule out Pulm edema Same as above (3) Colitis: Continue Zosyn (4) Acute renal failure due to rhabdomyolysis: Due to fall Continue IV hydration Echocardiogram pending Cr 2.03 from 1.36 Monitor I and O (5) Transaminitis, improving Right upper quadrant ultrasound reviwed and HIDA scan ordered Possibly due to rhabdomyolysis versus acute cholecystitis Monitor LFTs (6) Acute dehydration: Continue IV fluids (7) Atrial fibrillation with rapid ventricular response: Started on amiodarone Start metoprolol 25 mg p.o. q.d. for from tomorrow Now on Lovenox, will switch to DOAC if hemoglobin continues to be stable Will be transitioned to oral anticoagulant from tomorrow ECHO reviewed (8) GERD (gastroesophageal reflux disease): K21.9 - Gastro-esophageal reflux disease without esophagitis (9) Elevated troponin: Possibly due to rhabdomyolysis ECHO 50-55%, no regional wall motion abnormalities Cardiology noted no further intervention if no regional wall motion abnormalities Cardiology on board (10) Memory impairment: Code(s): R41.3 - Other amnesia Status: Acute Acute cholecystitis HIDA scan showed acute cholecystitis Continue above abx Monitor cultures GI evaluated and no concern for CBD obstruction that will require ERCP Gen surgery now recommends antibiotics therapy as he deems no immediate surgery needed but will conisder perc drainage if symptoms worsen Continue Antibiotics Melena ?GI bleed Gi evaluated and recommended to monitor for now Continue PPI Plan Code status: Full code DVT prophylaxis: On Lovenox full dose Subjective Date/time seen: 01/24/25 17:22 Interval history: Comfortable at bedside Surgery recommending non operative care. Review of Systems Review of Systems: Review of systems limited due to the patient's clinical condition and chronic hearing loss. Exam Narrative: Weight 115.8 kg BMI 31.1 Const: Other: Acutely ill-appearing, appears stated age, well-developed well-nourished HENMT: Other: Mucous membranes are dry, no oral pharyngeal erythema, head is normocephalic atraumatic Eyes: Other: Pupils are equal and reactive, mild scleral icterus, no conjunctival pallor, extraocular movements intact Neck: Other: No JVD, no lymphadenopathy Resp: Other: Marked tachypnea with respiratory rate in the mid 30s, accessory muscle use with abdominal respirations Cardio: Other: Irregularly irregular, tachycardic, 2+ bilateral radial pedal pulses, no JVD GI: Other: Markedly tender in the right upper quadrant area, abdomen was sent initially distended but on repeat evaluation after Armenta catheter lower abdomen is much softer, normoactive bowel sounds, no tympany : Other: Armenta catheter was placed was at bedside patient had turbid coke colored urine about 250 mL Skin: Other: Hot to touch, jaundice, 3-4 second cap refill Neuro: Other: Alert oriented to person, place and month confused as to the year thought the year was 2021 speech is clear, chronic hearing loss, no gross motor deficits noted on exam no facial asymmetry Extrem: Other: No clubbing, cyanosis or edema, moves all extremities equally, 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 Psych: Other: Appropriately anxious, otherwise pleasant and cooperative Objective Data Vital Signs Vital Signs: Vital Signs - 24 hr 01/23/25 18:00 01/23/25 20:00 01/23/25 20:00 Temperature Pulse Rate 85 79 Respiratory Rate Blood Pressure Pulse Oximetry 92 Oxygen Delivery Nasal Cannula Oxygen Flow Rate 4.5 Fraction of Inspired Oxygen 01/23/25 20:32 01/23/25 23:25 01/24/25 00:00 Temperature 97.8 F Pulse Rate 88 85 94 Respiratory Rate 20 22 H Blood Pressure 151/91 H Pulse Oximetry 94 92 Oxygen Delivery Nasal Cannula Oxygen Flow Rate 4 Fraction of Inspired Oxygen 36 01/24/25 04:00 01/24/25 07:38 01/24/25 08:00 Temperature 98.5 F Pulse Rate 97 92 86 Respiratory Rate 22 H Blood Pressure 124/80 Pulse Oximetry 93 Oxygen Delivery Oxygen Flow Rate Fraction of Inspired Oxygen 01/24/25 08:00 01/24/25 08:00 01/24/25 08:26 Temperature Pulse Rate 87 Respiratory Rate Blood Pressure Pulse Oximetry 93 Oxygen Delivery High Flow Nasal Cannula Nasal Cannula Oxygen Flow Rate 4.5 5 Fraction of Inspired Oxygen 01/24/25 12:00 01/24/25 16:00 01/24/25 16:00 Temperature 98.1 F Pulse Rate 80 84 73 Respiratory Rate 24 H Blood Pressure 156/81 H Pulse Oximetry 92 Oxygen Delivery Oxygen Flow Rate Fraction of Inspired Oxygen Intake/Output Intake/Output: Intake & Output 01/21/25 01/22/25 01/23/25 01/24/25 23:59 23:59 23:59 23:59 Intake Total 5781.3 3411.8 1140.0 2384.6 Output Total 1500 1800 2250 5500 Balance 4281.3 1611.8 -1110.0 -3115.4 Meds/Results Medications: Active Medications Generic Name Dose Route Start Last Admin Trade Name Freq PRN Reason Stop Dose Admin Acetaminophen 650 mg 01/21/25 02:19 01/21/25 09:30 Acetaminophen 325 Mg Tablet PO 650 mg Q4H PRN Administration Mild Pain (1-3) or Fever Doxycycline Hyclate 100 mg 01/24/25 21:00 Doxycycline Hyclate 100 Mg Tablet PO 01/25/25 21:01 Q12HR DREAD Enoxaparin Sodium 115 mg 01/24/25 13:25 01/24/25 13:31 Enoxaparin 120 Mg/0.8 Ml Syringe SUB-Q 115 mg Q12HR DREAD Administration Fish Oil 1 gm 01/21/25 09:00 01/24/25 08:00 [place] 3 Polyunsat Fatty Acids 1 Gm Cap PO 1 gm DAILY DREAD Administration Fluticasone Propionate 2 spray 01/23/25 21:00 01/24/25 07:59 Fluticasone Propionate 0.05% Na Spr 16 Gm Btl (*Bkc) NASAL 2 spray Q12HR DREAD Administration Piperacillin Sod/Tazobactam 50 mls @ 100 mls/hr 01/21/25 12:00 01/24/25 17:00 Sod 3.375 gm/ Sodium Chloride IVPB 100 mls/hr Q6HR DREAD Administration Metoprolol Succinate 25 mg 01/22/25 09:00 01/24/25 08:00 Metoprolol Succinate Ext Rel 25 Mg Tabcr PO 25 mg QAM DREAD Administration Ondansetron HCl 4 mg 01/21/25 02:19 Ondansetron Inj 4 Mg/2 Ml Vial IV PUSH Q4H PRN Nausea Pantoprazole Sodium 40 mg 01/24/25 21:00 Pantoprazole Sodium Iv 40 Mg Vial IV PUSH Q12HR [facility] Radiology Results: ITS Impressions Chest/Abdomen/Pelvis CTA 01/21/25 08:52 Impression: Distended gallbladder with suspected mild pericholecystic inflammatory change, suspicious for acute cholecystitis. Correlate clinically. Consider ultrasound a nd/or HIDA scan for further evaluation as indicated. Mild bibasilar pulmonary edema/atelectasis. Upper Quadrant Ultrasound 01/21/25 12:09 IMPRESSION: Limited evaluation of the pancreas secondary to overlying bowel gas. Layering sludge within the distended gallbladder. Borderline gallbladder wall thickening without pericholecystic fluid. Trace surrounding inflammatory change on CT examination performed approximately 12 hours earlier with indeterminate findings on ultrasound examination. If clinical suspicion persists for acalculous cholecystitis, HIDA scan would provide additional information. Hepatobiliary Scan Nuclear Medicine 01/23/25 10:21 IMPRESSION: 1. Nonvisualization of the gallbladder and the 30 minutes following morphine administration consistent with acute cholecystitis. Chest X-Ray 01/23/25 23:23 IMPRESSION: Left-sided pleural effusion with adjacent compressive atelectasis moderate pulmonary vascular congestion. Redemonstration platelike atelectasis within the right lung base Labs Labs: Laboratory Results - last 24 hr 01/23/25 01/24/25 01/24/25 18:14 01:08 07:24 WBC 14.4 H RBC 4.70 Hgb 14.7 Hct 42.7 MCV 90.9 MCH 31.3 MCHC 34.4 RDW 13.9 Plt Count 166 MPV 10.4 Immature Gran % (Auto) 1.4 H Neut % (Auto) 78.9 H Lymph % (Auto) 7.9 L [place] % (Auto) 10.7 H Eos % (Auto) 0.8 Baso % (Auto) 0.3 Lymph # (Auto) 1.14 [place] # (Auto) 1.5 H Eos # (Auto) 0.1 Baso # (Auto) 0.1 Abs Immat Gran (auto) 0.20 H Absolute Neuts (auto) 11.4 H Absolute Nucleated RBC 0.000 Nucleated RBC % 0.0 APTT 67.7 H 92.9 H 86.1 H Sodium 135 L Potassium 3.0 L Chloride 103 Carbon Dioxide 25 Anion Gap 7 BUN 51 H Creatinine 2.03 H Estim Creat Clear Calc 40 Estimated GFR 32 L Glucose 111 H Lactic Acid 1.1 Calcium 8.1 L Magnesium 2.0 Total Bilirubin 2.9 H AST 164 H ALT 131 H Alkaline Phosphatase 115 Total Protein 6.1 L Albumin 2.9 L Quality VTE Prophylaxis VTE prophylaxis: pharmacologic ordered (Heparin GGT per protocol)
[2025-01-24] MEDS: SODIUM CHLORIDE 0.9% IV 1,000 ML 75 ML IV CONT (18:30)
[2025-01-24] MEDS: DOXYCYCLINE HYCLATE 100 MG TABLET PO (20:19)
[2025-01-24] MEDS: PANTOPRAZOLE SODIUM IV 40 MG VIAL IV PUSH (20:19)
[2025-01-25] VITALS (10 sets, daily range): BP systolic 138–150; BP diastolic 80–85; PULSE 72–86; RESP 18–22; TEMP 36.4–36.6; O2SAT 90–93
[2025-01-25 04:16] LABS: Hematocrit 42.2 % (42.0-52.0); Hemoglobin 14.1 g/dL (14.0-18.0); Immature Granulocyte Percent A 4.7 % (0-0.5); Lymphocytes Absolute Auto 1.58 K/mm3 (0.9-3.2); Mean Corpuscular HGB Conc 33.4 g/dl (32-36); Mean Corpuscular Hemoglobin 30.6 pg (26-34); Mean Corpuscular Volume 91.5 fl (80-100); Nucleated Red Blood Cells Absolute Auto 0.000 K/mm3 (0.0-0.012); Nucleated Red Blood Cells Perc 0.0 % (0.0-0.2); Platelet Count Result 196 k/mm3 (150-375); Red Blood Count 4.61 M/mm3 (4.6-6.20); White Blood Count 14.4 K/mm3 (4.5-10.0)
[2025-01-25 04:24] LABS: Alanine Aminotransferase 122 U/L (6-50); Albumin Level 2.8 g/dL (3.5-5.1); Alkaline Phosphatase 107 U/L (38-126); Aspartate Amino Transferase 113 U/L (17-59); Bilirubin,Total 2.7 mg/dL (0.2-1.3); Blood Urea Nitrogen 56 mg/dL (9-20); Calcium 8.1 mg/dL (8.4-10.2); Carbon Dioxide 27 mmol/L (22-30); Chloride 102 mmol/L (98-107); Estimated CRCL calculation 39 ml/min; Estimated Glomerular Filt Rate 32; Glucose 125 mg/dL (65-110); Magnesium 2.0 mg/dL (1.6-2.3); Potassium 2.9 mmol/L (3.4-5.0); Total Protein 5.9 g/dL (6.3-8.2)
[2025-01-25 04:32] LABS: Anion Gap 7 mmol/L (4-12); Sodium 136 mmol/L (137-145)
[2025-01-25] MEDS: PIPERACILLIN/TAZOBACTAM SOD 3.375 GM in SODIUM CHLORIDE 0.9% IV 50 ML 100 ML IVPB ×4 (05:09→23:40)
[2025-01-25] MEDS: SODIUM CHLORIDE 0.9% IV 1,000 ML 75 ML IV CONT (08:06)
[2025-01-25] MEDS: FLUTICASONE PROPIONATE 0.05% NA SPR 16 GM BTL (*BKC) 2 SPRAY NASAL ×2 (08:07→20:46)
[2025-01-25] MEDS: DOXYCYCLINE HYCLATE 100 MG TABLET PO ×2 (08:07→20:44)
[2025-01-25] MEDS: METOPROLOL SUCCINATE EXT REL 25 MG TABCR PO (08:07)
[2025-01-25] MEDS: PANTOPRAZOLE SODIUM IV 40 MG VIAL IV PUSH ×2 (08:08→20:44)
[2025-01-25] MEDS: OMEGA 3 POLYUNSAT FATTY ACIDS 1 GM CAP PO (08:08)
--- NOTE | 2025-01-25 09:43 | PM.PNGS ---
Progress Note: A&P Assessment and Plan (1) Atrial fibrillation with rapid ventricular response: Code(s): I48.91 - Unspecified atrial fibrillation Status: Acute Assessment and Plan: Rate now controlled. Anticoagulation with Lovenox with plans to eventually transition to oral anticoagulation. Lovenox held this morning for placement of percutaneous image guided cholecystostomy tube. (2) Acute cholecystitis: Code(s): K81.0 - Acute cholecystitis Status: Acute Assessment and Plan: CT images of the gallbladder look worse clinically he has been very stable. He now has thickening of the gallbladder with some pericholecystic fluid and some phlegmonous changes around the gallbladder. Recommend proceeding with placement of an image guided percutaneous cholecystostomy tube placement to decompress the gallbladder and temporize management gallbladder until he is medically optimized from his pneumonia and acute renal failure. (3) Acute renal failure due to rhabdomyolysis: Code(s): N17.9 - Acute kidney failure, unspecified; M62.82 - Rhabdomyolysis Status: Acute Assessment and Plan: Draining sees a plateaued around 2.0. Continue management as per Nephrology. (4) Multifocal pneumonia: Code(s): J18.8 - Other pneumonia, unspecified organism Status: Acute Assessment and Plan: Patient is currently on Zosyn for IV antibiotics. He is still on supplemental oxygen at4L nasal cannula oxygen. Stable however. Continue management as per Medicine Service. Subjective Subjective Date/Time Seen: 01/25/25 09:43 Interval history: Patient has been clinically stable. Has been tolerating solid food. White blood cell count today is stable 14,400. No fever. Liver enzymes again are slightly lower but still mildly elevated. Patient is CT of his chest yesterday follow-up to his initial CT when he was admitted. This shows worsening thickening of the gallbladder with now some phlegmonous changes around the gallbladder consistent with acute cholecystitis. With his persistent elevated liver enzymes I think he would be best served by having a cholecystostomy tube placed by image guided Radiology today. Exam GI: Other: Abdomen is soft and nondistended. Minimal to mild tenderness the right upper quadrant now. No guarding. No generalized peritoneal signs. Objective Data Vital Signs Vital Signs: Vital Signs - 24 hr 01/24/25 12:00 01/24/25 16:00 01/24/25 16:00 Temperature 36.7 C Pulse Rate 80 84 73 Respiratory Rate 24 H Blood Pressure 156/81 H Pulse Oximetry 92 Oxygen Delivery Oxygen Flow Rate 01/24/25 20:00 01/24/25 20:00 01/24/25 20:00 Temperature 36.7 C Pulse Rate 87 77 Respiratory Rate 22 H Blood Pressure 147/77 H Pulse Oximetry 94 94 Oxygen Delivery Nasal Cannula Oxygen Flow Rate 1 01/24/25 22:17 01/24/25 23:33 01/24/25 23:43 Temperature Pulse Rate Respiratory Rate Blood Pressure Pulse Oximetry 89 L 88 L 90 Oxygen Delivery Nasal Cannula Nasal Cannula High Flow Nasal Cannula Oxygen Flow Rate 2 4 6 01/24/25 23:54 01/25/25 00:00 01/25/25 04:00 Temperature Pulse Rate 79 80 81 Respiratory Rate Blood Pressure Pulse Oximetry 90 Oxygen Delivery Oxygen Flow Rate 01/25/25 08:00 01/25/25 08:07 Temperature 36.5 C Pulse Rate 85 84 Respiratory Rate 22 H Blood Pressure 148/85 H Pulse Oximetry 90 Oxygen Delivery Oxygen Flow Rate Intake/Output Intake/Output: Intake & Output 01/22/25 01/23/25 01/24/25 01/25/25 23:59 23:59 23:59 23:59 Intake Total 3411.8 1140.0 2484.6 1790 Output Total 1800 2250 5500 1000 Balance 1611.8 -1110.0 -3015.4 790 Meds/Results Medications: Active Medications Generic Name Dose Route Start Last Admin Trade Name Freq PRN Reason Stop Dose Admin Acetaminophen 650 mg 01/21/25 02:19 01/21/25 09:30 Acetaminophen 325 Mg Tablet PO 650 mg Q4H PRN Administration Mild Pain (1-3) or Fever Doxycycline Hyclate 100 mg 01/24/25 21:00 01/25/25 08:07 Doxycycline Hyclate 100 Mg Tablet PO 01/25/25 21:01 100 mg Q12HR DREAD Administration Enoxaparin Sodium 115 mg 01/24/25 13:25 01/24/25 23:10 Enoxaparin 120 Mg/0.8 Ml Syringe SUB-Q 115 mg On Hold: 01/25/25 07:35 Q12HR DREAD Administration Fish Oil 1 gm 01/21/25 09:00 01/25/25 08:08 [place] 3 Polyunsat Fatty Acids 1 Gm Cap PO 1 gm DAILY DREAD Administration Fluticasone Propionate 2 spray 01/23/25 21:00 01/25/25 08:07 Fluticasone Propionate 0.05% Na Spr 16 Gm Btl (*Bkc) NASAL 2 spray Q12HR DREAD Administration Piperacillin Sod/Tazobactam 50 mls @ 100 mls/hr 01/21/25 12:00 01/25/25 05:09 Sod 3.375 gm/ Sodium Chloride IVPB 100 mls/hr Q6HR DREAD Administration Sodium Chloride 1,000 mls @ 75 mls/hr 01/24/25 18:05 01/25/25 08:06 Normal Saline Iv IV CONT 75 mls/hr .[id number] DREAD Administration Metoprolol Succinate 25 mg 01/22/25 09:00 01/25/25 08:07 Metoprolol Succinate Ext Rel 25 Mg Tabcr PO 25 mg QAM DREAD Administration Ondansetron HCl 4 mg 01/21/25 02:19 Ondansetron Inj 4 Mg/2 Ml Vial IV PUSH Q4H PRN Nausea Pantoprazole Sodium 40 mg 01/24/25 21:00 01/25/25 08:08 Pantoprazole Sodium Iv 40 Mg Vial IV PUSH 40 mg Q12HR DREAD Administration Radiology Results: ITS Impressions Chest/Abdomen/Pelvis CTA 01/21/25 08:52 Impression: Distended gallbladder with suspected mild pericholecystic inflammatory change, suspicious for acute cholecystitis. Correlate clinically. Consider ultrasound and/or HIDA scan for further evaluation as indicated. Mild bibasilar pulmonary edema/atelectasis. Upper Quadrant Ultrasound 01/21/25 12:09 IMPRESSION: Limited evaluation of the pancreas secondary to overlying bowel gas. Layering sludge within the distended gallbladder. Borderline gallbladder wall thickening without pericholecystic fluid. Trace surrounding inflammatory change on CT examination performed approximately 12 hours earlier with indeterminate findings on ultrasound examination. If clinical suspicion persists for acalculous cholecystitis, HIDA scan would provide additional information. Hepatobiliary Scan Nuclear Medicine 01/23/25 10:21 IMPRESSION: 1. Nonvisualization of the gallbladder and the 30 minutes following morphine administration consistent with acute cholecystitis. Chest X-Ray 01/23/25 23:23 IMPRESSION: Left-sided pleural effusion with adjacent compressive atelectasis moderate pulmonary vascular congestion. Redemonstration platelike atelectasis within the right lung base Chest CT 01/24/25 18:49 IMPRESSION: 1. Bilateral lower lobe airspace consolidation which may represent pneumonia and/or atelectasis. 2: Dilated gallbladder with wall thickening, pericystic cholecystic phlegmonous change and possible associated abscess involving the margin of the liver. Findings compatible with acute cholecystitis with sequela. 3: Small pleural effusions. 4: Nonobstructive left nephrolithiasis. Labs Labs: Laboratory Results - last 24 hr 01/25/25 04:04 WBC 14.4 H RBC 4.61 Hgb 14.1 Hct 42.2 MCV 91.5 MCH 30.6 MCHC 33.4 RDW 14.2 Plt Count 196 MPV 10.1 Immature Gran % (Auto) 4.7 H Neut % (Auto) 71.5 Lymph % (Auto) 11.0 L [place] % (Auto) 11.6 H Eos % (Auto) 0.8 Baso % (Auto) 0.4 Lymph # (Auto) 1.58 [place] # (Auto) 1.7 H Eos # (Auto) 0.1 Baso # (Auto) 0.1 Abs Immat Gran (auto) 0.67 H Absolute Neuts (auto) 10.3 H Absolute Nucleated RBC 0.000 Nucleated RBC % 0.0 Sodium 136 L Potassium 2.9 L Chloride 102 Carbon Dioxide 27 Anion Gap 7 BUN 56 H Creatinine 2.04 H Estim Creat Clear Calc 39 Estimated GFR 32 L Glucose 125 H Calcium 8.1 L Magnesium 2.0 Total Bilirubin 2.7 H AST 113 H ALT 122 H Alkaline Phosphatase 107 Total Protein 5.9 L Albumin 2.8 L
[2025-01-25 10:24] LABS: INR 1.1; Prothrombin Time 14.1 Seconds (11.1-14.7)
[2025-01-25] MEDS: POTASSIUM CHLORIDE 20 MEQ ER TABLET 40 MEQ PO (10:48)
[2025-01-25] MEDS: POTASSIUM CHLORIDE INJ 40 MEQ in SODIUM CHLORIDE 0.9% IV 500 ML 130 MEQ IVPB (10:48)
[2025-01-25] MEDS: MORPHINE SULFATE (*CRX) 4 MG/ML INJ IV PUSH (11:50)
[2025-01-25 12:01] LABS: Alveolar/Arterial O2 Gradient 222.6 mmHg; Carboxyhemoglobin 1.3 % THb (0-2.0); Fractional Inspired Oxygen 44 %; HCO3 ABG 22.1 mEq/l (22.0-26.0); Liters per Minute 6.0 LPM; Methemoglobin ABG 0.2 %THb (0-1.5); Modified Allen's Test Pass; Oxygen Content ABG 18.4 %vol (16.0-22.0); Oxygen Saturation ABG 92.7 % (95.0-100.0); PCO2 ABG 29.1 mmHg (35.0-45.0); PO2 ABG 58.0 mmHg (80.0-100.0); PO2 FiO2 Ratio Arterial Blood 1.32 %; Reduced Hemoglobin 8.3 %THb (0-5.0); Site Drawn LEFT RADIAL
--- NOTE | 2025-01-25 13:06 | PCPTNOTE ---
The patient treatment was not able to be completed on 01/25/2025 due to patient out of the room for procedure. Will plan to continue treatment per plan of care.
--- NOTE | 2025-01-25 13:20 | PCOTNOTE ---
Per RN, Patient just returned to the room from having a procedure completed, Patient unable to participate this P.M., try again over the weekend.
--- NOTE | 2025-01-25 14:12 | PM.CNPUL ---
Assessment and Plan Assessment and plan (1) Respiratory failure with hypoxia: Code(s): J96.91 - Respiratory failure, unspecified with hypoxia Status: Acute Assessment and Plan: Patient is a never smoker and has no baseline respiratory limitations in his activities of daily living. He goes to the gymnasium 2 times a week and walks 1.5 miles without respiratory limitations. Patient presented on 01/20 after being on the floor for 11 hours with rhabdomyolysis, hypoxic respiratory failure, AFib RVR and was treated with antibiotics, IV fluids. He developed evidence of cholecystitis and has undergone a percutaneous cholecystotomy drain today. He required 4 L nasal cannula in the emergency room with a blood gas of 7.4 11/30/2054. His blood gas today on 6 L nasal cannula 7.50// and currently is on 4 L nasal cannula with saturations 91%. Patient has no specific respiratory complaints. He denies rest shortness of breath, cough, phlegm, hemoptysis. He has been walking and says he has no dyspnea on exertion. Etiology of patient's hypoxic respiratory failure include bibasilar pneumonia, pleural effusions with compressive atelectasis, lower lobe atelectasis, fluid overload, doubt ARDS from cholecystitis, doubt amiodarone toxicity. Plan: Patient is currently being treated for cholecystitis and possible pneumonia with vancomycin, Zosyn and doxycycline. I have order respiratory pathogen panel, mycoplasma IgM, urine pneumococcal and urine streptococcal antigen are pending. Blood cultures from 01/21. I will order incentive spirometry and EzPAP to try to treat his atelectasis. He should be out of bed to chair as tolerated. He is not making any phlegm at this time. I will add guaifenesin in case he has sputum that he can not expectorate. I will order a BNP, patient is 3 L negative with 40 mg of IV Lasix yesterday. Agree with holding Lasix as creatinine is 2.04 today. Would try to minimize fluid input. Would restart gentle diuresis as tolerated by his renal function. Inpatient Pulmonary consultative services will resume on 01/28/2025, call the on-call physician for questions. Discussed with Dr. Oleary, will follow with you. History of Present Illness History of Present Illness Consult date: 01/25/25 Chief complaint: Rhabdomyolysis, AFib RVR, Dehydration, Colitis, Pn Narrative: 01/25/2025: This is a new pulmonary consult for oxygen requirements 74-year-old with a history of hypertension, esophageal strictures, DJD, right knee osteoarthritis, chronic hearing loss, mild cognitive impairment. At baseline patient has no respiratory limitations in his activities of daily living. He goes to the gymnasium 2 times a week and works out on the elliptical for 5 minutes and then does machine weights for at least 10 minutes and has no respiratory limitations. Two weeks ago he walked 1-1/2 miles at the [facility] and had no respiratory limitations. He is a never smoker. 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 On 01/21/2025 the patient was brought to the emergency room after being on the floor for 12 hours. He required 4 L nasal cannula in the emergency room with an ABG of 7.4 11/30/2054. His white blood cell count was 11.5, his creatinine was 1.52, his CPK was 10,409, COVID influenza and RSV RT PCR assay negative. and his CRP was 37.2. He had AFib with RVR And was treated with diltiazem without success and then amiodarone. Patient had a CT angiogram of the chest with mild pulmonary edema and atelectasis in the bases. On 01/24 patient required 1-2 L nasal cannula that increased to 6 L nasal cannula. On 01/25 the patient underwent a percutaneous cholecystostomy tube. 01/25/2025: Currently the patient has no specific respiratory complaints. He says he has no shortness of breath at rest, no cough not, no hemoptysis, no phlegm, no dyspnea on exertion when he was walking the hallway. Overall he feels much better. Currently the patient is on 4 L nasal cannula with saturation 91%. He is afebrile. White blood cell count 14.4, creatinine 2.04. ABG on 6 L nasal cannula 7.. Yesterday he diuresed 3 L cumulative he is 1.5 L positive since admission. DATA: 01/24/25: EXAMINATION: CT diagnostic chest wo con INDICATION: Pulmonary edema versus pneumonia COMPARISON: CT dated 01/20/2025 FINDINGS: There are calcified granulomas of the spleen. The pancreas, adrenal glands are unremarkable. There is a small nonobstructing left renal stone. Kidneys are only partially visualized. There is distention of the gallbladder with gallbladder wall thickening. There is been progression of surrounding pericholecystic phlegmonous change with a fluid collection adjacent to the gallbladder medially measuring 5.1 x 3.8 cm, suspicious for abscess, possibly involving the liver parenchyma. Small pleural effusions. Bilateral lower lobe airspace consolidation. No pneumothorax. No endobronchial lesions. IMPRESSION: 1. Bilateral lower lobe airspace consolidation which may represent pneumonia and/or atelectasis. 2: Dilated gallbladder with wall thickening, pericystic cholecystic phlegmonous change and possible associated abscess involving the margin of the liver. Findings compatible with acute cholecystitis with sequela. 3: Small pleural effusions. 4: Nonobstructive left nephrolithiasis. 12/09/2022: This is a pulmonary function test with pre and post-bronchodilator spirometry, plethysmography and diffusing capacity. The test was performed and results interpreted in accordance with the 2019 and 2005 ATS/ERS Task Force guidelines respectively using the Global Lung Function Initiative-2012 reference equations. Patient demonstrated good effort and cooperation. Reproducibility criteria were met. The quality of the pre bronchodilator spirometry maneuver was Grade A and post bronchodilator spirometry maneuver was Grade A. Findings: Spirometry: The contour the inspiratory and expiratory flow tracing are normal. The pre bronchodilator FVC is 5.26 L, 105% predicted. The pre bronchodilator FEV1 is 3.69 L, 100% predicted. The pre bronchodilator FEV1: FVC ratio 70%. The post bronchodilator FVC is 5.51 L, representing a 5% decrease. The post bronchodilator FEV1 is 3.79 L, representing a 3% increase. The post bronchodilator FEV1: FVC ratio 69%. Plethysmography: The total lung capacity is 8.59 L, 104% predicted. The functional residual capacity is 4.53 L, 101% predicted. The residual volume is 3.07 L, 107% predicted. Diffusion capacity: The diffusing capacity unadjusted for hemoglobin and carboxyhemoglobin is 20.0, 72% predicted. The diffusing capacity adjusted for alveolar volume a 2.77, 80% predicted. Impression: The spirometry is normal without evidence of an obstructive abnormality. There is no significant improvement after inhaling a single dose of albuterol. The lung volumes are normal. The diffusing capacity is normal. There are no prior studies for comparison Review of Systems Constitutional: Constitutional: Reports no additional constitutional complaints Eyes: Eyes: Reports no additional eye complaints ENT: Reports system reviewed and no additional complaints, except as documented Cardiovascular: Cardiovascular: Reports no additional cardiovascular complaints Respiratory: Respiratory: Reports no additional respiratory complaints Gastrointestinal: Gastrointestinal: Reports no additional gastrointestinal complaints Musculoskeletal: Musculoskeletal: Reports no additional musculoskeletal complaints Neurologic: Reports system reviewed and no additional complaints, except as documented Psychiatric: Psychiatric: Reports no additional psychiatric complaints Endocrine: Endocrine: Reports no additional endocrine complaints Hematologic/Lymphatic: Hematologic/Lymphatic: Reports no additional hematologic/lymphatic complaints Allergic/Immunologic: Allergic/Immunologic: Reports no additional allergic/immunologic complaints PMFSH Past Medical History Medical History Erectile dysfunction Mixed hyperlipidemia Vitamin D deficiency Positional vertigo Memory impairment Hypersomnolence Trigger finger Bilateral hand numbness Benign essential hypertension Psoriasis Stricture of esophagus Insomnia Kidney stone Hearing loss DJD (degenerative joint disease) GERD (gastroesophageal reflux disease) Pre-diabetes Surgical History Surgical History Status post total left knee replacement 08/02/2022 Hx of arthroscopic knee surgery Hx of detached retina repair Family History Family History Father Family history of congestive heart failure Family history of cardiovascular disease Family history of heart disease in male family member before age 55 Social History Social History (Updated 01/22/25 @ 02:28 by Madai Carrero DO) Social History: He has been since 2020. He lives by himself in [place]. 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 He is a lifetime nonsmoker. He drinks between 1-4 alcoholic beverages a month. He denies illicit substance use. Code status: Full code (patient would not want long-term ventilatory support) Surrogate decision makers: Shaunna (daughter) and son Smoking status: Never smoker Second hand tobacco smoke exposure: No Alcohol intake: current Drinks per week: 2 Alcohol use details: STATES 2-4 BEERS/WEEK Substance use: never Substance use type: does not use Lack of Transportation: No Lack of Food: Never True Current Housing: Decline to Answer Concerned About Future Housing: Decline to Answer Difficulty Paying Gas/Electric Bills: Decline to Answer Difficulty Paying for Meds: Decline to Answer Currently Unemployed: Decline to Answer Education: Decline to Answer Difficulty w/ Childcare or Family Care: Decline to Answer Living arrangements: alone Occupation/Education: retired Gender identity (if verbalized by the patient): Male Spiritual care concerns: No Agree to blood products: Yes Meds Home Medications and Allergies Home Medications ?Medication ?Instructions ?Recorded ?Confirmed ?Type Prevagen 10 mg BYMOUTH . daily 03/16/24 01/21/25 History omega-3 fatty acids-fish oil 360 1 cap PO DAILY 03/16/24 01/21/25 History mg-1,200 mg capsule (Fish Oil) pyridoxine (vitamin B6) 100 mg 100 mg PO DAILY 03/16/24 01/21/25 History tablet pravastatin 40 mg tablet See Rx Instructions .Route 07/24/24 01/21/25 Rx .COMPLEX #90 tabs ascorbic acid (vitamin C) 500 mg 500 mg PO DAILY 07/30/24 01/21/25 History capsule thiamine HCl (vitamin B1) 100 mg 100 mg PO DAILY 07/30/24 01/21/25 History capsule fluticasone propionate 50 2 spray intranasal BID #16 mL 11/28/24 01/21/25 Rx mcg/actuation nasal spray,suspension (Flonase Allergy Relief) meloxicam 15 mg tablet See Rx Instructions .Route 12/13/24 01/21/25 Rx .COMPLEX #30 tabs omeprazole 40 mg capsule,delayed See Rx Instructions .Route 12/13/24 01/21/25 Rx release .COMPLEX #180 caps valsartan 320 mg tablet 320 mg PO DAILY #90 tabs 12/13/24 01/21/25 Rx zolpidem 10 mg tablet 10 mg PO QHS #30 tabs 12/13/24 01/21/25 Rx donepezil 5 mg tablet 5 mg PO QHS #90 tabs 01/14/25 01/21/25 Rx Allergies Allergy/AdvReac Type Severity Reaction Status Date / Time No Known Allergies Allergy Verified 12/19/24 07:04 Vital Signs Vital Signs - 24 hr 01/24/25 16:00 01/24/25 16:00 01/24/25 20:00 Temperature 36.7 C 36.7 C Pulse Rate 84 73 87 Respiratory Rate 24 H 22 H Blood Pressure 156/81 H 147/77 H Pulse Oximetry 92 94 Oxygen Delivery Oxygen Flow Rate Fraction of Inspired Oxygen 01/24/25 20:00 01/24/25 20:00 01/24/25 22:17 Temperature Pulse Rate 77 Respiratory Rate Blood Pressure Pulse Oximetry 94 89 L Oxygen Delivery Nasal Cannula Nasal Cannula Oxygen Flow Rate 1 2 Fraction of Inspired Oxygen 01/24/25 23:33 01/24/25 23:43 01/24/25 23:54 Temperature Pulse Rate 79 Respiratory Rate Blood Pressure Pulse Oximetry 88 L 90 90 Oxygen Delivery Nasal Cannula High Flow Nasal Cannula Oxygen Flow Rate 4 6 Fraction of Inspired Oxygen 01/25/25 00:00 01/25/25 04:00 01/25/25 08:00 Temperature 36.5 C Pulse Rate 80 81 85 Respiratory Rate 22 H Blood Pressure 148/85 H Pulse Oximetry 90 Oxygen Delivery Oxygen Flow Rate Fraction of Inspired Oxygen 01/25/25 08:00 01/25/25 08:00 01/25/25 08:07 Temperature Pulse Rate 85 84 Respiratory Rate Blood Pressure Pulse Oximetry 90 Oxygen Delivery High Flow Nasal Cannula Oxygen Flow Rate 6 Fraction of Inspired Oxygen 01/25/25 12:00 01/25/25 12:00 Temperature Pulse Rate 72 Respiratory Rate Blood Pressure Pulse Oximetry 92 Oxygen Delivery Nasal Cannula Oxygen Flow Rate 6 Fraction of Inspired Oxygen 44 Exam Const: General: cooperative, healthy appearing and comfortable Orientation/consciousness: oriented to person, oriented to place and oriented to time HENMT: Head: normal to inspection Ears: hearing grossly normal bilaterally Eyes: General: appearance normal, both eyes and all related structures Neck: Neck: normal visual inspection Chest: Chest palpation & inspection: normal inspection of the chest Resp: Effort & Inspection: normal respiratory effort and able to speak in complete sentences Auscultation: crackles, no rales, no rhonchi, no wheezes and lung sounds not diminished Other: bibasilar crackles. Cardio: Jugular venous distension: no JVD GI: Inspection: normal to inspection GI Palp: No abdominal tenderness Skin: General skin exam: normal color Neuro: General: oriented to person, oriented to place and oriented to time Extrem: General: normal to inspection and no edema Psych: Appearance: grossly normal Results Laboratory Findings 01/25/25 04:04 01/25/25 04:04 ABG, PT/INR, D-dimer: ABG ABG pH 7.499 (7.350-7.450) H 01/25/25 11:47 ABG pCO2 29.1 mmHg (35.0-45.0) L 01/25/25 11:47 ABG pO2 58.0 mmHg (80.0-100.0) L 01/25/25 11:47 ABG O2 Saturation 92.7 % (95.0-100.0) L 01/25/25 11:47 PT/INR, D-dimer PT 14.1 Seconds (11.1-14.7) 01/25/25 10:05 INR 1.1 01/25/25 10:05 Abnormal lab findings: Abnormal Labs 01/20/25 01/21/25 01/21/25 23:01 03:11 03:54 WBC 15.9 H RBC Hct Plt Count 138 L MPV 10.7 H Immature Gran % (Auto) 1.4 H Neut % (Auto) 85.3 H Lymph % (Auto) 6.0 L [place] % (Auto) Baso % (Auto) 0.1 L Lymph # (Auto) [place] # (Auto) 1.2 H Abs Immat Gran (auto) 0.23 H Absolute Neuts (auto) 13.5 H PT 15.1 H APTT ABG pH 7.464 H ABG pCO2 27.2 L ABG pO2 54.6 L ABG HCO3 19.1 L ABG O2 Saturation 90.7 L Oxyhemoglobin 88.4 L Reduced Hemoglobin 10.5 H Sodium 131 L Potassium Carbon Dioxide 20 L BUN 29 H Creatinine 1.36 H Estimated GFR 51 L Glucose 132 H Lactic Acid 2.2 H Calcium Total Bilirubin 5.5 H AST 210 H ALT 73 H Total Creatine Kinase 02296 H Troponin I 0.141 H* C-Reactive Protein 37.2 H Total Protein Albumin Urine Appearance Cloudy H Ur Specific [place] > 1.045 H Urine Protein 3+ H Urine Ketones Trace H Ur Blood (Man) 3+ H Leukocyte Esterase Rfl Trace H Urine RBC 6-10 H Amorphous Sediment Few H 01/21/25 01/21/25 01/21/25 06:01 06:02 09:00 WBC 11.5 H RBC Hct Plt Count 105 L MPV Immature Gran % (Auto) 0.7 H Neut % (Auto) 89.1 H Lymph % (Auto) 4.0 L [place] % (Auto) Baso % (Auto) 0.1 L Lymph # (Auto) 0.46 L [place] # (Auto) 0.7 H Abs Immat Gran (auto) 0.08 H Absolute Neuts (auto) 10.3 H PT APTT 76.7 H ABG pH ABG pCO2 ABG pO2 ABG HCO3 ABG O2 Saturation Oxyhemoglobin Reduced Hemoglobin Sodium 135 L Potassium Carbon Dioxide BUN 30 H Creatinine 1.52 H Estimated GFR 45 L Glucose 122 H Lactic Acid Calcium 8.2 L Total Bilirubin 3.3 H AST 252 H ALT 77 H Total Creatine Kinase Troponin I 0.333 H* C-Reactive Protein Total Protein Albumin 3.2 L Urine Appearance Ur Specific [place] Urine Protein Urine Ketones Ur Blood (Man) Leukocyte Esterase Rfl Urine RBC Amorphous Sediment 01/21/25 01/21/25 01/22/25 11:50 21:18 03:45 WBC 11.0 H 12.3 H RBC Hct 41.5 L Plt Count 102 L 114 L MPV 10.6 H 10.6 H Immature Gran % (Auto) 0.6 H Neut % (Auto) 86.1 H 86.8 H Lymph % (Auto) 5.7 L 6.2 L [place] % (Auto) Baso % (Auto) Lymph # (Auto) 0.63 L 0.77 L [place] # (Auto) 0.8 H 0.8 H Abs Immat Gran (auto) 0.05 H 0.07 H Absolute Neuts (auto) 9.5 H 10.7 H PT APTT 69.5 H 41.5 H ABG pH ABG pCO2 ABG pO2 ABG HCO3 ABG O2 Saturation Oxyhemoglobin Reduced Hemoglobin Sodium 133 L Potassium 3.2 L Carbon Dioxide 20 L BUN 39 H Creatinine 1.60 H Estimated GFR 42 L Glucose 121 H Lactic Acid Calcium 8.1 L Total Bilirubin 2.2 H AST 205 H ALT 98 H Total Creatine Kinase Troponin I C-Reactive Protein Total Protein 6.0 L Albumin 2.8 L Urine Appearance Ur Specific [place] Urine Protein Urine Ketones Ur Blood (Man) Leukocyte Esterase Rfl Urine RBC Amorphous Sediment 01/22/25 01/22/25 01/23/25 11:36 19:45 03:11 WBC 13.8 H RBC 4.47 L Hct 40.4 L Plt Count 128 L MPV 10.5 H Immature Gran % (Auto) 0.7 H Neut % (Auto) 82.0 H Lymph % (Auto) 6.6 L [place] % (Auto) 10.1 H Baso % (Auto) Lymph # (Auto) [place] # (Auto) 1.4 H Abs Immat Gran (auto) 0.10 H Absolute Neuts (auto) 11.3 H PT APTT 67.8 H 51.5 H 74.2 H ABG pH ABG pCO2 ABG pO2 ABG HCO3 ABG O2 Saturation Oxyhemoglobin Reduced Hemoglobin Sodium 135 L Potassium 3.1 L Carbon Dioxide BUN 46 H Creatinine 1.89 H Estimated GFR 35 L Glucose Lactic Acid Calcium 8.0 L Total Bilirubin 3.2 H AST 182 H ALT 120 H Total Creatine Kinase Troponin I C-Reactive Protein Total Protein 5.8 L Albumin 2.8 L Urine Appearance Ur Specific [place] Urine Protein Urine Ketones Ur Blood (Man) Leukocyte Esterase Rfl Urine RBC Amorphous Sediment 01/23/25 01/23/25 01/24/25 10:14 18:14 01:08 WBC 14.4 H RBC Hct Plt Count MPV Immature Gran % (Auto) 1.4 H Neut % (Auto) 78.9 H Lymph % (Auto) 7.9 L [place] % (Auto) 10.7 H Baso % (Auto) Lymph # (Auto) [place] # (Auto) 1.5 H Abs Immat Gran (auto) 0.20 H Absolute Neuts (auto) 11.4 H PT APTT 61.5 H 67.7 H 92.9 H ABG pH ABG pCO2 ABG pO2 ABG HCO3 ABG O2 Saturation Oxyhemoglobin Reduced Hemoglobin Sodium 135 L Potassium 3.0 L Carbon Dioxide BUN 51 H Creatinine 2.03 H Estimated GFR 32 L Glucose 111 H Lactic Acid Calcium 8.1 L Total Bilirubin 2.9 H AST 164 H ALT 131 H Total Creatine Kinase Troponin I C-Reactive Protein Total Protein 6.1 L Albumin 2.9 L Urine Appearance Ur Specific [place] Urine Protein Urine Ketones Ur Blood (Man) Leukocyte Esterase Rfl Urine RBC Amorphous Sediment 01/24/25 01/25/25 01/25/25 07:24 04:04 11:47 WBC 14.4 H RBC Hct Plt Count MPV Immature Gran % (Auto) 4.7 H Neut % (Auto) Lymph % (Auto) 11.0 L [place] % (Auto) 11.6 H Baso % (Auto) Lymph # (Auto) [place] # (Auto) 1.7 H Abs Immat Gran (auto) 0.67 H Absolute Neuts (auto) 10.3 H PT APTT 86.1 H ABG pH 7.499 H ABG pCO2 29.1 L ABG pO2 58.0 L ABG HCO3 ABG O2 Saturation 92.7 L Oxyhemoglobin Reduced Hemoglobin 8.3 H Sodium 136 L Potassium 2.9 L Carbon Dioxide BUN 56 H Creatinine 2.04 H Estimated GFR 32 L Glucose 125 H Lactic Acid Calcium 8.1 L Total Bilirubin 2.7 H AST 113 H ALT 122 H Total Creatine Kinase Troponin I C-Reactive Protein Total Protein 5.9 L Albumin 2.8 L Urine Appearance Ur Specific [place] Urine Protein Urine Ketones Ur Blood (Man) Leukocyte Esterase Rfl Urine RBC Amorphous Sediment Diagnostic Findings Additional studies: ITS Impressions Chest/Abdomen/Pelvis CTA 01/21/25 08:52 Impression: Distended gallbladder with suspected mild pericholecystic inflammatory change, suspicious for acute cholecystitis. Correlate clinically. Consider ultrasound and/or HIDA scan for further evaluation as indicated. Mild bibasilar pulmonary edema/atelectasis. Chest X-Ray 01/21/25 09:06 IMPRESSION: Opacities in bilateral lung bases may represent atelectasis versus consolidation. Aspiration cannot be excluded. Clinical correlation is recommended. Short interval follow-up chest radiograph is recommended after appropriate clinical therapy to document resolution and/or stability. Chest X-Ray 01/21/25 09:55 IMPRESSION: 1.Small to moderate-sized patchy opacities scattered throughout the mid and lower lungs are similar to the study from 01/20/2025. The findings may be secondary to atelectasis or consolidations. Recommend follow-up to resolution to exclude an underlying mass. Upper Quadrant Ultrasound 01/21/25 12:09 IMPRESSION: Limited evaluation of the pancreas secondary to overlying bowel gas. Layering sludge within the distended gallbladder. Borderline gallbladder wall thickening without pericholecystic fluid. Trace surrounding inflammatory change on CT examination performed approximately 12 hours earlier with indeterminate findings on ultrasound examination. If clinical suspicion persists for acalculous cholecystitis, HIDA scan would provide additional information. Chest X-Ray 01/22/25 18:58 Impression: 1: Persistent bibasilar atelectasis/scarring without significant change. Hepatobiliary Scan Nuclear Medicine 01/23/25 10:21 IMPRESSION: 1. Nonvisualization of the gallbladder and the 30 minutes following morphine administration consistent with acute cholecystitis. Chest X-Ray 01/23/25 23:23 IMPRESSION: Left-sided pleural effusion with adjacent compressive atelectasis moderate pulmonary vascular congestion. Redemonstration platelike atelectasis within the right lung base Chest CT 01/24/25 18:49 IMPRESSION: 1. Bilateral lower lobe airspace consolidation which may represent pneumonia and/or atelectasis. 2: Dilated gallbladder with wall thickening, pericystic cholecystic phlegmonous change and possible associated abscess involving the margin of the liver. Findings compatible with acute cholecystitis with sequela. 3: Small pleural effusions. 4: Nonobstructive left nephrolithiasis. Cholecystostomy 01/25/25 14:15 IMPRESSION: 1. Successful ultrasound-guided cholecystostomy tube placement. 2. 50 mL bile was sent for aerobic, anaerobic, and fungal cultures. 3. The catheter will be managed by Dr. Huang. A catheter cholangiogram may be performed not less than 48 hours after tube placement if clinically indicated to assess cystic duct patency. If cholecystectomy is not eventually performed and the infectious episode has resolved, the tube may be removed over a guidewire, preferably not less than 3 weeks after placement to allow time for a mature catheter tract to form to prevent bile leakage and peritonitis.
--- NOTE | 2025-01-25 14:17 | PM.IMPN ---
Progress Note: A&P Assessment and Plan (1) Severe sepsis: Code(s): A41.9 - Sepsis, unspecified organism; R65.20 - Severe sepsis without septic shock Status: Acute (2) Multifocal pneumonia: Code(s): J18.8 - Other pneumonia, unspecified organism Status: Acute (3) Colitis: Code(s): K52.9 - Noninfective gastroenteritis and colitis, unspecified Status: Acute (4) Acute renal failure due to rhabdomyolysis: Code(s): N17.9 - Acute kidney failure, unspecified; M62.82 - Rhabdomyolysis Status: Acute (5) Transaminitis: Status: Acute (6) Acute dehydration: Code(s): E86.0 - Dehydration Status: Acute (7) Atrial fibrillation with rapid ventricular response: Code(s): I48.91 - Unspecified atrial fibrillation Status: Acute (8) GERD (gastroesophageal reflux disease): Qualifiers: Esophagitis presence: esophagitis presence not specified Qualified Code(s): K21.9 - Gastro-esophageal reflux disease without esophagitis Code(s): K21.9 - Gastro-esophageal reflux disease without esophagitis Status: Acute (9) Elevated troponin: Code(s): R79.89 - Other specified abnormal findings of blood chemistry Status: Acute (10) Memory impairment: Code(s): R41.3 - Other amnesia Status: Acute Plan Assessment and Plan (1) Severe sepsis: Meets sirs criteria:Fever,Tachycardia,Tachypnea Continue Zosyn and doxycycline Suspected source possible pneumonia Blood culture and urine culture pain Lactic acid Coag Covid,flu Monitor vitals hydrocortisone 200mg x 3 days,fludrocortisone (2) Multifocal pneumonia: CT chest ordered to rule out Pulm edema Escalated antibiotics to Levaquin and Vanc MRSA and sputum cultured ordered Same as above (3) Colitis: Continue Zosyn (4) Acute renal failure due to rhabdomyolysis: Due to fall Continue IV hydration Echocardiogram pending Cr 2.03 from 1.36 Monitor I and O (5) Transaminitis, improving Right upper quadrant ultrasound reviwed and HIDA scan ordered Possibly due to rhabdomyolysis versus acute cholecystitis Monitor LFTs (6) Acute dehydration: Continue IV fluids (7) Atrial fibrillation with rapid ventricular response: Started on amiodarone Start metoprolol 25 mg p.o. q.d. for from tomorrow Now on Lovenox, will switch to DOAC if hemoglobin continues to be stable Will be transitioned to oral anticoagulant from tomorrow ECHO reviewed (8) GERD (gastroesophageal reflux disease): K21.9 - Gastro-esophageal reflux disease without esophagitis (9) Elevated troponin: Possibly due to rhabdomyolysis ECHO 50-55%, no regional wall motion abnormalities Cardiology noted no further intervention if no regional wall motion abnormalities Cardiology on board (10) Memory impairment: Code(s): R41.3 - Other amnesia Status: Acute Acute cholecystitis HIDA scan showed acute cholecystitis Continue above abx Monitor cultures GI evaluated and no concern for CBD obstruction that will require ERCP For Perc drainage today per Gen surgery Continue Antibiotics Melena Stool was brown today and Hb 14.1, stable GI bleed less likely Gi evaluated and recommended to monitor for now Continue PPI Acute hypoxemic respiratory failure Patient on room air at baseline and now on [address] chest reviewed and continue abx as above monitor Plan Code status: Full code DVT prophylaxis: On Lovenox full dose Subjective Date/time seen: 01/25/25 14:17 Interval history: Comfortable at bedside CT chest reviewed Review of Systems Review of Systems: Review of systems limited due to the patient's clinical condition and chronic hearing loss. Exam Narrative: Weight 115.8 kg BMI 31.1 Const: Other: Acutely ill-appearing, appears stated age, well-developed well-nourished HENMT: Other: Mucous membranes are dry, no oral pharyngeal erythema, head is normocephalic atraumatic Eyes: Other: Pupils are equal and reactive, mild scleral icterus, no conjunctival pallor, extraocular movements intact Neck: Other: No JVD, no lymphadenopathy Resp: Other: Marked tachypnea with respiratory rate in the mid 30s, accessory muscle use with abdominal respirations Cardio: Other: Irregularly irregular, tachycardic, 2+ bilateral radial pedal pulses, no JVD GI: Other: Markedly tender in the right upper quadrant area, abdomen was sent initially distended but on repeat evaluation after Armenta catheter lower abdomen is much softer, normoactive bowel sounds, no tympany : Other: Armenta catheter was placed was at bedside patient had turbid coke colored urine about 250 mL Skin: Other: Hot to touch, jaundice, 3-4 second cap refill Neuro: Other: Alert oriented to person, place and month confused as to the year thought the year was 2021 speech is clear, chronic hearing loss, no gross motor deficits noted on exam no facial asymmetry Extrem: Other: No clubbing, cyanosis or edema, moves all extremities equally, 5/5 bilingual spanish inbound sales strength bilateral Psych: Other: Appropriately anxious, otherwise pleasant and cooperative Objective Data Vital Signs Vital Signs: Vital Signs - 24 hr 01/24/25 16:00 01/24/25 16:00 01/24/25 20:00 Temperature 98.1 F 98.1 F Pulse Rate 84 73 87 Respiratory Rate 24 H 22 H Blood Pressure 156/81 H 147/77 H Pulse Oximetry 92 94 Oxygen Delivery Oxygen Flow Rate Fraction of Inspired Oxygen 01/24/25 20:00 01/24/25 20:00 01/24/25 22:17 Temperature Pulse Rate 77 Respiratory Rate Blood Pressure Pulse Oximetry 94 89 L Oxygen Delivery Nasal Cannula Nasal Cannula Oxygen Flow Rate 1 2 Fraction of Inspired Oxygen 01/24/25 23:33 01/24/25 23:43 01/24/25 23:54 Temperature Pulse Rate 79 Respiratory Rate Blood Pressure Pulse Oximetry 88 L 90 90 Oxygen Delivery Nasal Cannula High Flow Nasal Cannula Oxygen Flow Rate 4 6 Fraction of Inspired Oxygen 01/25/25 00:00 01/25/25 04:00 01/25/25 08:00 Temperature 97.7 F Pulse Rate 80 81 85 Respiratory Rate 22 H Blood Pressure 148/85 H Pulse Oximetry 90 Oxygen Delivery Oxygen Flow Rate Fraction of Inspired Oxygen 01/25/25 08:00 01/25/25 08:00 01/25/25 08:07 Temperature Pulse Rate 85 84 Respiratory Rate Blood Pressure Pulse Oximetry 90 Oxygen Delivery High Flow Nasal Cannula Oxygen Flow Rate 6 Fraction of Inspired Oxygen 01/25/25 12:00 01/25/25 12:00 Temperature Pulse Rate 72 Respiratory Rate Blood Pressure Pulse Oximetry 92 Oxygen Delivery Nasal Cannula Oxygen Flow Rate 6 Fraction of Inspired Oxygen 44 Intake/Output Intake/Output: Intake & Output 01/22/25 01/23/25 01/24/25 01/25/25 23:59 23:59 23:59 23:59 Intake Total 3411.8 1140.0 2484.6 1840 Output Total 1800 2250 5500 1950 Balance 1611.8 -1110.0 -3015.4 -110 Meds/Results Medications: Active Medications Generic Name Dose Route Start Last Admin Trade Name Freq PRN Reason Stop Dose Admin Acetaminophen 650 mg 01/21/25 02:19 01/21/25 09:30 Acetaminophen 325 Mg Tablet PO 650 mg Q4H PRN Administration Mild Pain (1-3) or Fever Doxycycline Hyclate 100 mg 01/24/25 21:00 01/25/25 08:07 Doxycycline Hyclate 100 Mg Tablet PO 01/25/25 21:01 100 mg Q12HR DREAD Administration Enoxaparin Sodium 115 mg 01/24/25 13:25 01/24/25 23:10 Enoxaparin 120 Mg/0.8 Ml Syringe SUB-Q 115 mg On Hold: 01/25/25 07:35 Q12HR DREAD Administration Fish Oil 1 gm 01/21/25 09:00 01/25/25 08:08 [place] 3 Polyunsat Fatty Acids 1 Gm Cap PO 1 gm DAILY DREAD Administration Fluticasone Propionate 2 spray 01/23/25 21:00 01/25/25 08:07 Fluticasone Propionate 0.05% Na Spr 16 Gm Btl (*Bkc) NASAL 2 spray Q12HR DREAD Administration Piperacillin Sod/Tazobactam 50 mls @ 100 mls/hr 01/21/25 12:00 01/25/25 11:16 Sod 3.375 gm/ Sodium Chloride IVPB 100 mls/hr Q6HR DREAD Administration Sodium Chloride 1,000 mls @ 75 mls/hr 01/24/25 18:05 01/25/25 08:06 Normal Saline Iv IV CONT 75 mls/hr .[id number] DREAD Administration Potassium Chloride 40 meq/ 520 mls @ 130 mls/hr 01/25/25 10:24 01/25/25 10:48 Sodium Chloride IVPB 01/25/25 14:23 130 mls/hr ONCE ONE Administration Levofloxacin/Dextrose 750 mg in 150 mls @ 100 mls/hr 01/25/25 14:15 Levaquin 750 Mg/D5w 150 Ml IVPB Q24H DREAD Metoprolol Succinate 25 mg 01/22/25 09:00 01/25/25 08:07 Metoprolol Succinate Ext Rel 25 Mg Tabcr PO 25 mg QAM DREAD Administration Morphine Sulfate 2 mg 01/25/25 09:42 Morphine Sulfate (*Crx) 2 Mg/Ml Inj IV PUSH Q3H PRN Pain Rated 7-10 Ondansetron HCl 4 mg 01/21/25 02:19 Ondansetron Inj 4 Mg/2 Ml Vial IV PUSH Q4H PRN Nausea Pantoprazole Sodium 40 mg 01/24/25 21:00 01/25/25 08:08 Pantoprazole Sodium Iv 40 Mg Vial IV PUSH 40 mg Q12HR DREAD Administration Vancomycin HCl 1 each 01/25/25 14:15 Vancomycin Pharmacist To Dose IVPB PER PROTOCOL [facility] Radiology Results: ITS Impressions Chest/Abdomen/Pelvis CTA 01/21/25 08:52 Impression: Distended gallbladder with suspected mild pericholecystic inflammatory change, suspicious for acute cholecystitis. Correlate clinically. Consider ultrasound and/or HIDA scan for further evaluation as indicated. Mild bibasilar pulmonary edema/atelectasis. Upper Quadrant Ultrasound 01/21/25 12:09 IMPRESSION: Limited evaluation of the pancreas secondary to overlying bowel gas. Layering sludge within the distended gallbladder. Borderline gallbladder wall thickening without pericholecystic fluid. Trace surrounding inflammatory change on CT examination performed approximately 12 hours earlier with indeterminate findings on ultrasound examination. If clinical suspicion persists for acalculous cholecystitis, HIDA scan would provide additional information. Hepatobiliary Scan Nuclear Medicine 01/23/25 10:21 IMPRESSION: 1. Nonvisualization of the gallbladder and the 30 minutes following morphine administration consistent with acute cholecystitis. Chest X-Ray 01/23/25 23:23 IMPRESSION: Left-sided pleural effusion with adjacent compressive atelectasis moderate pulmonary vascular congestion. Redemonstration platelike atelectasis within the right lung base Chest CT 01/24/25 18:49 IMPRESSION: 1. Bilateral lower lobe airspace consolidation which may represent pneumonia and/or atelectasis. 2: Dilated gallbladder with wall thickening, pericystic cholecystic phlegmonous change and possible associated abscess involving the margin of the liver. Findings compatible with acute cholecystitis with sequela. 3: Small pleural effusions. 4: Nonobstructive left nephrolithiasis. Labs Labs: Laboratory Results - last 24 hr 01/25/25 01/25/25 01/25/25 04:04 10:05 11:47 WBC 14.4 H RBC 4.61 Hgb 14.1 Hct 42.2 MCV 91.5 MCH 30.6 MCHC 33.4 RDW 14.2 Plt Count 196 MPV 10.1 Immature Gran % (Auto) 4.7 H Neut % (Auto) 71.5 Lymph % (Auto) 11.0 L [place] % (Auto) 11.6 H Eos % (Auto) 0.8 Baso % (Auto) 0.4 Lymph # (Auto) 1.58 [place] # (Auto) 1.7 H Eos # (Auto) 0.1 Baso # (Auto) 0.1 Abs Immat Gran (auto) 0.67 H Absolute Neuts (auto) 10.3 H Absolute Nucleated RBC 0.000 Nucleated RBC % 0.0 PT 14.1 INR 1.1 Puncture Site Left radial ABG pH 7.499 H ABG pCO2 29.1 L ABG pO2 58.0 L ABG PO2/FiO2 Ratio 1.32 ABG HCO3 22.1 ABG O2 Saturation 92.7 L ABG O2 Content 18.4 ABG Base Excess 0.1 A-a Gradient 222.6 Oxyhemoglobin 90.2 Carboxyhemoglobin 1.3 Methemoglobin 0.2 Reduced Hemoglobin 8.3 H Total Hemoglobin 14.5 O2 Delivery Device High flow nasal gilbert O2 Liters/Min 6.0 FiO2 44 Sodium 136 L Potassium 2.9 L Chloride 102 Carbon Dioxide 27 Anion Gap 7 BUN 56 H Creatinine 2.04 H Estim Creat Clear Calc 39 Estimated GFR 32 L Glucose 125 H Calcium 8.1 L Magnesium 2.0 Total Bilirubin 2.7 H AST 113 H ALT 122 H Alkaline Phosphatase 107 Total Protein 5.9 L Albumin 2.8 L Quality VTE Prophylaxis VTE prophylaxis: pharmacologic ordered (Heparin GGT per protocol)
--- NOTE | 2025-01-25 14:44 | PC.NURSE ---
Pt transferred to room 246 at 1423. Report given to TOMAS Feliciano.
[2025-01-25] MEDS: VANCOMYCIN 1,250 MG/NS 250 ML 1,250 MG/250 ML BAG 166.67 MG IVPB ×2 (15:08→17:50)
[2025-01-25] MEDS: levoFLOXacin 750 MG/D5W 150 ML 750 MG/150 ML BAG 100 MG IVPB (15:09)
[2025-01-25 19:21] LABS: MRSA (PCR) NOT DETECTED (NOT DETECTE)
[2025-01-25] MEDS: ENOXAPARIN 120 MG/0.8 ML SYRINGE 115 MG SUB-Q (20:44)
[2025-01-25] MEDS: guaiFENesin 12 HR 600 MG TABCR 1200 MG PO (20:44)
[2025-01-25] MEDS: MORPHINE SULFATE (*CRX) 2 MG/ML INJ IV PUSH (23:41)
[2025-01-26] VITALS (17 sets, daily range): BP systolic 158–170; BP diastolic 80–94; PULSE 70–87; RESP 16–18; TEMP 36.5–36.7; O2SAT 89–96
[2025-01-26] MEDS: SODIUM CHLORIDE 0.9% IV 1,000 ML 75 ML IV CONT (01:40)
[2025-01-26 05:00] LABS: Hematocrit 38.1 % (42.0-52.0); Hemoglobin 12.8 g/dL (14.0-18.0); Immature Granulocyte Percent A 10.7 % (0-0.5); Lymphocytes Absolute Auto 1.77 K/mm3 (0.9-3.2); Mean Corpuscular HGB Conc 33.6 g/dl (32-36); Mean Corpuscular Hemoglobin 31.3 pg (26-34); Mean Corpuscular Volume 93.2 fl (80-100); Nucleated Red Blood Cells Absolute Auto 0.000 K/mm3 (0.0-0.012); Nucleated Red Blood Cells Perc 0.0 % (0.0-0.2); Platelet Count Result 205 k/mm3 (150-375); Red Blood Count 4.09 M/mm3 (4.6-6.20); White Blood Count 11.2 K/mm3 (4.5-10.0)
[2025-01-26 05:18] LABS: Alanine Aminotransferase 89 U/L (6-50); Albumin Level 2.4 g/dL (3.5-5.1); Alkaline Phosphatase 98 U/L (38-126); Anion Gap 5 mmol/L (4-12); Aspartate Amino Transferase 75 U/L (17-59); Bilirubin,Total 1.7 mg/dL (0.2-1.3); Blood Urea Nitrogen 47 mg/dL (9-20); Calcium 7.6 mg/dL (8.4-10.2); Carbon Dioxide 23 mmol/L (22-30); Chloride 108 mmol/L (98-107); Creatine Kinase 57 U/L (55-170); Estimated CRCL calculation 41 ml/min; Estimated Glomerular Filt Rate 34; Glucose 121 mg/dL (65-110); Magnesium 1.9 mg/dL (1.6-2.3); Potassium 3.0 mmol/L (3.4-5.0); Sodium 136 mmol/L (137-145); Total Protein 5.3 g/dL (6.3-8.2)
[2025-01-26 05:23] LABS: NT Pro B Type Natriuretic Pept 2370 pg/mL (19.9-100)
[2025-01-26 05:31] LABS: Procalcitonin 0.6 ng/mL
[2025-01-26] MEDS: PIPERACILLIN/TAZOBACTAM SOD 3.375 GM in SODIUM CHLORIDE 0.9% IV 50 ML 100 ML IVPB ×4 (05:38→23:53)
[2025-01-26] MEDS: FLUTICASONE PROPIONATE 0.05% NA SPR 16 GM BTL (*BKC) 2 SPRAY NASAL ×2 (09:15→20:14)
[2025-01-26] MEDS: ENOXAPARIN 120 MG/0.8 ML SYRINGE 115 MG SUB-Q ×2 (09:16→20:14)
[2025-01-26] MEDS: OMEGA 3 POLYUNSAT FATTY ACIDS 1 GM CAP PO (09:16)
[2025-01-26] MEDS: METOPROLOL SUCCINATE EXT REL 25 MG TABCR PO (09:16)
[2025-01-26] MEDS: guaiFENesin 12 HR 600 MG TABCR 1200 MG PO ×2 (09:16→20:15)
[2025-01-26] MEDS: PANTOPRAZOLE SODIUM IV 40 MG VIAL IV PUSH ×2 (09:16→20:14)
[2025-01-26] MEDS: POTASSIUM CHLORIDE 20 MEQ PACKET (FOR LIQUID) 40 MEQ PO (09:24)
--- NOTE | 2025-01-26 10:42 | PM.PNGS ---
Progress Note: A&P Assessment and Plan (1) Atrial fibrillation with rapid ventricular response: Code(s): I48.91 - Unspecified atrial fibrillation Status: Acute Assessment and Plan: Rate now controlled. Anticoagulation with Lovenox with plans to eventually transition to oral anticoagulation. Lovenox held this morning for placement of percutaneous image guided cholecystostomy tube. (2) Acute cholecystitis: Code(s): K81.0 - Acute cholecystitis Status: Acute Assessment and Plan: Improved after placement of cholecystostomy tube. Continue low-fat diet. Follow labs and clinical exam. Is on Zosyn for cholecystitis. (3) Acute renal failure due to rhabdomyolysis: Code(s): N17.9 - Acute kidney failure, unspecified; M62.82 - Rhabdomyolysis Status: Acute Assessment and Plan: Draining sees a plateaued around 2.0. Continue management as per Nephrology. (4) Multifocal pneumonia: Code(s): J18.8 - Other pneumonia, unspecified organism Status: Acute Assessment and Plan: On multiple antibiotics. Consider Infectious Disease consultation on Tuesday Subjective Subjective Date/Time Seen: 01/26/25 10:42 Patient reports: no new complaints, afebrile and other (Patient confused but appears comfortable with no voiced complaints) Review of Systems Review of Systems: ROS unobtainable: Yes unobtainable due to mental status Exam Const: General: comfortable, no acute distress, alert and awake Nutritional Appearance: overweight Orientation/consciousness: confusion Resp: Effort & Inspection: normal respiratory effort Auscultation: clear to auscultation bilaterally Cardio: Rate: regular rate Rhythm: regular rhythm GI: Inspection: non-distended, obesity and other (Somewhat bloody fluid draining from cholecystostomy tube) GI Palp: Yes Soft to palpation, Yes Tenderness to palpation present (GI) (Drain site), No Guarding due to palpation present (GI) and No Rebound tenderness present Auscultation: normal bowel sounds and normoactive bowel sounds Extrem: General: no calf tenderness and no edema Objective Data Vital Signs Vital Signs: Vital Signs - 24 hr 01/25/25 12:00 01/25/25 12:00 01/25/25 14:51 Temperature 36.6 C Pulse Rate 72 80 Respiratory Rate 20 Blood Pressure 150/85 H Pulse Oximetry 92 92 Oxygen Delivery Nasal Cannula Oxygen Flow Rate 6 Fraction of Inspired Oxygen 44 01/25/25 16:00 01/25/25 19:58 01/25/25 20:00 Temperature 36.4 C Pulse Rate 82 86 Respiratory Rate 18 Blood Pressure 138/80 Pulse Oximetry 93 92 Oxygen Delivery High Flow Nasal Cannula Oxygen Flow Rate 4 Fraction of Inspired Oxygen 01/25/25 20:00 01/25/25 20:43 01/26/25 00:00 Temperature Pulse Rate 85 77 Respiratory Rate Blood Pressure Pulse Oximetry 92 Oxygen Delivery Nasal Cannula Oxygen Flow Rate 6 Fraction of Inspired Oxygen 01/26/25 04:00 01/26/25 07:50 01/26/25 08:00 Temperature Pulse Rate 79 70 Respiratory Rate Blood Pressure Pulse Oximetry 94 Oxygen Delivery Nasal Cannula Oxygen Flow Rate 4 Fraction of Inspired Oxygen 01/26/25 08:00 01/26/25 09:16 Temperature 36.6 C Pulse Rate 78 78 Respiratory Rate 18 Blood Pressure 158/80 H Pulse Oximetry 92 Oxygen Delivery Oxygen Flow Rate Fraction of Inspired Oxygen Afebrile last 2 days Intake/Output Intake/Output: Intake & Output 01/23/25 01/24/25 01/25/25 01/26/25 23:59 23:59 23:59 23:59 Intake Total 1140.0 2484.6 4350 1140 Output Total 2250 5500 2665 1270 Balance -1110.0 -3015.4 1685 -130 Meds/Results Medications: Active Medications Generic Name Dose Route Start Last Admin Trade Name Freq PRN Reason Stop Dose Admin Acetaminophen 650 mg 01/21/25 02:19 01/21/25 09:30 Acetaminophen 325 Mg Tablet PO 650 mg Q4H PRN Administration Mild Pain (1-3) or Fever Enoxaparin Sodium 115 mg 01/24/25 13:25 01/26/25 09:16 Enoxaparin 120 Mg/0.8 Ml Syringe SUB-Q 115 mg Q12HR DREAD Administration Fish Oil 1 gm 01/21/25 09:00 01/26/25 09:16 [place] 3 Polyunsat Fatty Acids 1 Gm Cap PO 1 gm DAILY DREAD Administration Fluticasone Propionate 2 spray 01/23/25 21:00 01/26/25 09:15 Fluticasone Propionate 0.05% Na Spr 16 Gm Btl (*Bkc) NASAL 2 spray Q12HR DREAD Administration Guaifenesin 1,200 mg 01/25/25 21:00 01/26/25 09:16 Guaifenesin 12 Hr 600 Mg Tabcr PO 1,200 mg Q12HR DREAD Administration Piperacillin Sod/Tazobactam 50 mls @ 100 mls/hr 01/21/25 12:00 01/26/25 06:08 Sod 3.375 gm/ Sodium Chloride IVPB Infused Q6HR DREAD Infusion Sodium Chloride 1,000 mls @ 75 mls/hr 01/24/25 18:05 01/26/25 01:40 Normal Saline Iv IV CONT 75 mls/hr .[id number] DREAD Administration Levofloxacin/Dextrose 750 mg in 150 mls @ 100 mls/hr 01/25/25 15:00 01/25/25 16:39 Levaquin 750 Mg/D5w 150 Ml IVPB Infused Q48H DREAD Infusion Vancomycin HCl 1,500 mg in 500 mls @ 250 mls/hr 01/27/25 03:00 Vancomycin 1,500 Mg/Ns 500 Ml IVPB Q36H DREAD Metoprolol Succinate 25 mg 01/22/25 09:00 01/26/25 09:16 Metoprolol Succinate Ext Rel 25 Mg Tabcr PO 25 mg QAM DREAD Administration Morphine Sulfate 2 mg 01/25/25 09:42 01/25/25 23:41 Morphine Sulfate (*Crx) 2 Mg/Ml Inj IV PUSH 2 mg Q3H PRN Administration Pain Rated 7-10 Ondansetron HCl 4 mg 01/21/25 02:19 Ondansetron Inj 4 Mg/2 Ml Vial IV PUSH Q4H PRN Nausea Pantoprazole Sodium 40 mg 01/24/25 21:00 01/26/25 09:16 Pantoprazole Sodium Iv 40 Mg Vial IV PUSH 40 mg Q12HR DREAD Administration Radiology Results: ITS Impressions Chest/Abdomen/Pelvis CTA 01/21/25 08:52 Impression: Distended gallbladder with suspected mild pericholecystic inflammatory change, suspicious for acute cholecystitis. Correlate clinically. Consider ultrasound and/or HIDA scan for further evaluation as indicated. Mild bibasilar pulmonary edema/atelectasis. Upper Quadrant Ultrasound 01/21/25 12:09 IMPRESSION: Limited evaluation of the pancreas secondary to overlying bowel gas. Layering sludge within the distended gallbladder. Borderline gallbladder wall thickening without pericholecystic fluid. Trace surrounding inflammatory change on CT examination performed approximately 12 hours earlier with indeterminate findings on ultrasound examination. If clinical suspicion persists for acalculous cholecystitis, HIDA scan would provide additional information. Hepatobiliary Scan Nuclear Medicine 01/23/25 10:21 IMPRESSION: 1. Nonvisualization of the gallbladder and the 30 minutes following morphine administration consistent with acute cholecystitis. Chest X-Ray 01/23/25 23:23 IMPRESSION: Left-sided pleural effusion with adjacent compressive atelectasis moderate pulmonary vascular congestion. Redemonstration platelike atelectasis within the right lung base Chest CT 01/24/25 18:49 IMPRESSION: 1. Bilateral lower lobe airspace consolidation which may represent pneumonia and/or atelectasis. 2: Dilated gallbladder with wall thickening, pericystic cholecystic phlegmonous change and possible associated abscess involving the margin of the liver. Findings compatible with acute cholecystitis with sequela. 3: Small pleural effusions. 4: Nonobstructive left nephrolithiasis. Cholecystostomy 01/25/25 14:15 IMPRESSION: 1. Successful ultrasound-guided cholecystostomy tube placement. 2. 50 mL bile was sent for aerobic, anaerobic, and fungal cultures. 3. The catheter will be managed by Dr. Huang. A catheter cholangiogram may be performed not less than 48 hours after tube placement if clinically indicated to assess cystic duct patency. If cholecystectomy is not eventually performed and the infectious episode has resolved, the tube may be removed over a guidewire, preferably not less than 3 weeks after placement to allow time for a mature catheter tract to form to prevent bile leakage and peritonitis. Labs Labs: Laboratory Results - last 24 hr 01/25/25 01/25/25 01/26/25 11:47 18:03 04:28 WBC 11.2 H RBC 4.09 L Hgb 12.8 L Hct 38.1 L MCV 93.2 MCH 31.3 MCHC 33.6 RDW 14.4 Plt Count 205 MPV 9.9 Immature Gran % (Auto) 10.7 H Neut % (Auto) 58.3 Lymph % (Auto) 15.8 L [place] % (Auto) 11.9 H Eos % (Auto) 2.0 Baso % (Auto) 1.3 H Lymph # (Auto) 1.77 [place] # (Auto) 1.3 H Eos # (Auto) 0.2 Baso # (Auto) 0.1 Abs Immat Gran (auto) 1.19 H Absolute Neuts (auto) 6.5 Absolute Nucleated RBC 0.000 Nucleated RBC % 0.0 Puncture Site Left radial ABG pH 7.499 H ABG pCO2 29.1 L ABG pO2 58.0 L ABG PO2/FiO2 Ratio 1.32 ABG HCO3 22.1 ABG O2 Saturation 92.7 L ABG O2 Content 18.4 ABG Base Excess 0.1 A-a Gradient 222.6 Oxyhemoglobin 90.2 Carboxyhemoglobin 1.3 Methemoglobin 0.2 Reduced Hemoglobin 8.3 H Total Hemoglobin 14.5 O2 Delivery Device High flow nasal gilbert O2 Liters/Min 6.0 FiO2 44 Sodium 136 L Potassium 3.0 L Chloride 108 H Carbon Dioxide 23 Anion Gap 5 BUN 47 H Creatinine 1.95 H Estim Creat Clear Calc 41 Estimated GFR 34 L Glucose 121 H Lactic Acid 1.0 Calcium 7.6 L Magnesium 1.9 Total Bilirubin 1.7 H AST 75 H ALT 89 H Alkaline Phosphatase 98 Total Creatine Kinase 57 NT-Pro-B Natriuret Pep 2370 H Total Protein 5.3 L Albumin 2.4 L Procalcitonin 0.6 Nasal MRSA (PCR) Not detected LFTs are improved.
[2025-01-26] MEDS: ALBUMIN HUMAN 25% 25 GM/100 ML 100 ML IVPB (13:13)
[2025-01-27] VITALS (16 sets, daily range): BP systolic 135–165; BP diastolic 82–92; PULSE 67–86; RESP 16–20; TEMP 36.3–36.8; O2SAT 91–98
[2025-01-27] MEDS: VANCOMYCIN 1,500 MG/NS 500 ML 1,500 MG/500 ML BAG 250 MG IVPB (03:10)
[2025-01-27 04:30] LABS: Estimated CRCL calculation 44 ml/min; Estimated Glomerular Filt Rate 37
[2025-01-27] MEDS: PIPERACILLIN/TAZOBACTAM SOD 3.375 GM in SODIUM CHLORIDE 0.9% IV 50 ML 100 ML IVPB ×3 (06:03→17:04)
[2025-01-27] MEDS: ENOXAPARIN 120 MG/0.8 ML SYRINGE 115 MG SUB-Q ×2 (08:28→20:33)
[2025-01-27] MEDS: METOPROLOL SUCCINATE EXT REL 25 MG TABCR PO (08:28)
[2025-01-27] MEDS: OMEGA 3 POLYUNSAT FATTY ACIDS 1 GM CAP PO (08:28)
[2025-01-27] MEDS: FLUTICASONE PROPIONATE 0.05% NA SPR 16 GM BTL (*BKC) 2 SPRAY NASAL ×2 (08:28→20:34)
[2025-01-27] MEDS: guaiFENesin 12 HR 600 MG TABCR 1200 MG PO ×2 (08:28→20:33)
[2025-01-27] MEDS: SODIUM CHLORIDE 0.9% IV 1,000 ML 75 ML IV CONT (08:29)
[2025-01-27] MEDS: PANTOPRAZOLE SODIUM IV 40 MG VIAL IV PUSH ×2 (08:57→20:33)
--- NOTE | 2025-01-27 09:29 | PM.IMPN ---
Progress Note: A&P Assessment and Plan (1) Severe sepsis: Code(s): A41.9 - Sepsis, unspecified organism; R65.20 - Severe sepsis without septic shock Status: Acute (2) Multifocal pneumonia: Code(s): J18.8 - Other pneumonia, unspecified organism Status: Acute (3) Colitis: Code(s): K52.9 - Noninfective gastroenteritis and colitis, unspecified Status: Acute (4) Acute renal failure due to rhabdomyolysis: Code(s): N17.9 - Acute kidney failure, unspecified; M62.82 - Rhabdomyolysis Status: Acute (5) Transaminitis: Status: Acute (6) Acute dehydration: Code(s): E86.0 - Dehydration Status: Acute (7) Atrial fibrillation with rapid ventricular response: Code(s): I48.91 - Unspecified atrial fibrillation Status: Acute (8) GERD (gastroesophageal reflux disease): Qualifiers: Esophagitis presence: esophagitis presence not specified Qualified Code(s): K21.9 - Gastro-esophageal reflux disease without esophagitis Code(s): K21.9 - Gastro-esophageal reflux disease without esophagitis Status: Acute (9) Elevated troponin: Code(s): R79.89 - Other specified abnormal findings of blood chemistry Status: Acute (10) Memory impairment: Code(s): R41.3 - Other amnesia Status: Acute Plan Assessment and Plan (1) Severe sepsis: Meets sirs criteria:Fever,Tachycardia,Tachypnea Continue Zosyn Suspected source possible pneumonia Blood culture and urine culture pain Lactic acid Coag Covid,flu Monitor vitals hydrocortisone 200mg x 3 days,fludrocortisone (2) Multifocal pneumonia: CT chest ordered to rule out Pulm edema Day 2 on Levaquin, vanc discontinued as MRSA is negative Contineu ZOsyn Monitor sputum Same as above (3) Colitis: Continue Zosyn (4) Acute renal failure due to rhabdomyolysis: Due to fall Continue IV hydration Echocardiogram pending Cr 1.8 from 2.04 Monitor I and O (5) Transaminitis, improving Right upper quadrant ultrasound reviwed and HIDA scan ordered Possibly due to rhabdomyolysis versus acute cholecystitis Monitor LFTs (6) Acute dehydration: Continue IV fluids (7) Atrial fibrillation with rapid ventricular response: Started on amiodarone Start metoprolol 25 mg p.o. q.d. for from tomorrow Now on Lovenox, will switch to DOAC if hemoglobin continues to be stable Will be transitioned to oral anticoagulant from tomorrow ECHO reviewed (8) GERD (gastroesophageal reflux disease): K21.9 - Gastro-esophageal reflux disease without esophagitis (9) Elevated troponin: Possibly due to rhabdomyolysis ECHO 50-55%, no regional wall motion abnormalities Cardiology noted no further intervention if no regional wall motion abnormalities Cardiology on board (10) Memory impairment: Code(s): R41.3 - Other amnesia Status: Acute Acute cholecystitis HIDA scan showed acute cholecystitis Continue above abx Monitor cultures GI evaluated and no concern for CBD obstruction that will require ERCP S/p erc darinage placement, draining dark sludge Continue Antibiotics Melena Stool was brown today and Hb 14.1, stable GI bleed less likely Gi evaluated and recommended to monitor for now Continue PPI Acute hypoxemic respiratory failure Patient on room air at baseline now on 3L doen from 5L CT chest reviewed and continue abx as above monitor Plan Code status: Full code DVT prophylaxis: On Lovenox full dose Subjective Date/time seen: 01/27/25 09:29 Interval history: Comfortable at bedside MRSA negative and Vanc discontinued Review of Systems Review of Systems: Review of systems limited due to the patient's clinical condition and chronic hearing loss. Exam Narrative: Weight 115.8 kg BMI 31.1 Const: Other: Acutely ill-appearing, appears stated age, well-developed well-nourished HENMT: Other: Mucous membranes are dry, no oral pharyngeal erythema, head is normocephalic atraumatic Eyes: Other: Pupils are equal and reactive, mild scleral icterus, no conjunctival pallor, extraocular movements intact Neck: Other: No JVD, no lymphadenopathy Resp: Other: Marked tachypnea with respiratory rate in the mid 30s, accessory muscle use with abdominal respirations Cardio: Other: Irregularly irregular, tachycardic, 2+ bilateral radial pedal pulses, no JVD GI: Other: Markedly tender in the right upper quadrant area, abdomen was sent initially distended but on repeat evaluation after Armenta catheter lower abdomen is much softer, normoactive bowel sounds, no tympany : Other: Armenta catheter was placed was at bedside patient had turbid coke colored urine about 250 mL Skin: Other: Hot to touch, jaundice, 3-4 second cap refill Neuro: Other: Alert oriented to person, place and month confused as to the year thought the year was 2021 speech is clear, chronic hearing loss, no gross motor deficits noted on exam no facial asymmetry Extrem: Other: No clubbing, cyanosis or edema, moves all extremities equally, 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 Psych: Other: Appropriately anxious, otherwise pleasant and cooperative Objective Data Vital Signs Vital Signs: Vital Signs - 24 hr 01/26/25 12:00 01/26/25 13:22 01/26/25 14:09 Temperature 98.0 F Pulse Rate 73 75 87 Respiratory Rate 18 Blood Pressure 168/94 H Pulse Oximetry 96 95 Oxygen Delivery High Flow Nasal Cannula Oxygen Flow Rate 4 01/26/25 14:10 01/26/25 14:10 01/26/25 14:23 Temperature Pulse Rate 86 Respiratory Rate Blood Pressure Pulse Oximetry 96 93 93 Oxygen Delivery Nasal Cannula Nasal Cannula Nasal Cannula Oxygen Flow Rate 4 3 2 01/26/25 15:22 01/26/25 15:56 01/26/25 16:00 Temperature Pulse Rate 79 Respiratory Rate Blood Pressure Pulse Oximetry 95 89 L Oxygen Delivery Nasal Cannula Nasal Cannula Oxygen Flow Rate 2 1 01/26/25 17:10 01/26/25 20:00 01/26/25 20:00 Temperature Pulse Rate 70 Respiratory Rate Blood Pressure Pulse Oximetry 93 93 Oxygen Delivery Nasal Cannula Nasal Cannula Oxygen Flow Rate 2 2 01/26/25 20:49 01/26/25 22:00 01/27/25 00:00 Temperature 97.7 F Pulse Rate 79 80 Respiratory Rate 16 Blood Pressure 170/90 H Pulse Oximetry 93 93 Oxygen Delivery Nasal Cannula Oxygen Flow Rate 2 01/27/25 01:20 01/27/25 02:26 01/27/25 04:00 Temperature Pulse Rate 84 Respiratory Rate Blood Pressure 165/84 H Pulse Oximetry 92 Oxygen Delivery High Flow Nasal Cannula Oxygen Flow Rate 3 01/27/25 06:00 01/27/25 07:20 01/27/25 08:00 Temperature 98.2 F Pulse Rate 82 86 Respiratory Rate 16 Blood Pressure 154/92 H Pulse Oximetry 93 93 Oxygen Delivery Nasal Cannula Oxygen Flow Rate 3 01/27/25 08:28 01/27/25 08:36 Temperature Pulse Rate 82 Respiratory Rate Blood Pressure Pulse Oximetry 91 Oxygen Delivery Nasal Cannula Oxygen Flow Rate 3 Intake/Output Intake/Output: Intake & Output 01/24/25 01/25/25 01/26/25 01/27/25 23:59 23:59 23:59 23:59 Intake Total 2484.6 4350 2580 800 Output Total 5500 2665 2520 3220 Balance -3015.4 5925 60 -2420 Meds/Results Medications: Active Medications Generic Name Dose Route Start Last Admin Trade Name Freq PRN Reason Stop Dose Admin Acetaminophen 650 mg 01/21/25 02:19 01/21/25 09:30 Acetaminophen 325 Mg Tablet PO 650 mg Q4H PRN Administration Mild Pain (1-3) or Fever Enoxaparin Sodium 115 mg 01/24/25 13:25 01/27/25 08:28 Enoxaparin 120 Mg/0.8 Ml Syringe SUB-Q 115 mg Q12HR DREAD Administration Fish Oil 1 gm 01/21/25 09:00 01/27/25 08:28 [place] 3 Polyunsat Fatty Acids 1 Gm Cap PO 1 gm DAILY DREAD Administration Fluticasone Propionate 2 spray 01/23/25 21:00 01/27/25 08:28 Fluticasone Propionate 0.05% Na Spr 16 Gm Btl (*Bkc) NASAL 2 spray Q12HR DREAD Administration Guaifenesin 1,200 mg 01/25/25 21:00 01/27/25 08:28 Guaifenesin 12 Hr 600 Mg Tabcr PO 1,200 mg Q12HR DREAD Administration Piperacillin Sod/Tazobactam 50 mls @ 100 mls/hr 01/21/25 12:00 01/27/25 06:33 Sod 3.375 gm/ Sodium Chloride IVPB Infused Q6HR DREAD Infusion Sodium Chloride 1,000 mls @ 75 mls/hr 01/24/25 18:05 01/27/25 08:29 Normal Saline Iv IV CONT 75 mls/hr .[id number] DREAD Administration Levofloxacin/Dextrose 750 mg in 150 mls @ 100 mls/hr 01/25/25 15:00 01/25/25 16:39 Levaquin 750 Mg/D5w 150 Ml IVPB Infused Q48H DREAD Infusion Metoprolol Succinate 25 mg 01/22/25 09:00 01/27/25 08:28 Metoprolol Succinate Ext Rel 25 Mg Tabcr PO 25 mg QAM DREAD Administration Morphine Sulfate 2 mg 08/22/25 09:42 01/25/25 23:41 Morphine Sulfate (*Crx) 2 Mg/Ml Inj IV PUSH 2 mg Q3H PRN Administration Pain Rated 7-10 Ondansetron HCl 4 mg 01/21/25 02:19 Ondansetron Inj 4 Mg/2 Ml Vial IV PUSH Q4H PRN Nausea Pantoprazole Sodium 40 mg 01/24/25 21:00 01/27/25 08:57 Pantoprazole Sodium Iv 40 Mg Vial IV PUSH 40 mg Q12HR DREAD Administration Radiology Results: ITS Impressions Chest/Abdomen/Pelvis CTA 01/21/25 08:52 Impression: Distended gallbladder with suspected mild pericholecystic inflammatory change, suspicious for acute cholecystitis. Correlate clinically. Consider ultrasound and/or HIDA scan for further evaluation as indicated. Mild bibasilar pulmonary edema/atelectasis. Upper Quadrant Ultrasound 01/21/25 12:09 IMPRESSION: Limited evaluation of the pancreas secondary to overlying bowel gas. Layering sludge within the distended gallbladder. Borderline gallbladder wall thickening without pericholecystic fluid. Trace surrounding inflammatory change on CT examination performed approximately 12 hours earlier with indeterminate findings on ultrasound examination. If clinical suspicion persists for acalculous cholecystitis, HIDA scan would provide additional information. Hepatobiliary Scan Nuclear Medicine 01/23/25 10:21 IMPRESSION: 1. Nonvisualization of the gallbladder and the 30 minutes following morphine administration consistent with acute cholecystitis. Chest X-Ray 01/23/25 23:23 IMPRESSION: Left-sided pleural effusion with adjacent compressive atelectasis moderate pulmonary vascular congestion. Redemonstration platelike atelectasis within the right lung base Chest CT 01/24/25 18:49 IMPRESSION: 1. Bilateral lower lobe airspace consolidation which may represent pneumonia and/or atelectasis. 2: Dilated gallbladder with wall thickening, pericystic cholecystic phlegmonous change and possible associated abscess involving the margin of the liver. Findings compatible with acute cholecystitis with sequela. 3: Small pleural effusions. 4: Nonobstructive left nephrolithiasis. Cholecystostomy 01/25/25 14:15 IMPRESSION: 1. Successful ultrasound-guided cholecystostomy tube placement. 2. 50 mL bile was sent for aerobic, anaerobic, and fungal cultures. 3. The catheter will be managed by Dr. Huang. A catheter cholangiogram may be performed not less than 48 hours after tube placement if clinically indicated to assess cystic duct patency. If cholecystectomy is not eventually performed and the infectious episode has resolved, the tube may be removed over a guidewire, preferably not less than 3 weeks after placement to allow time for a mature catheter tract to form to prevent bile leakage and peritonitis. Labs Labs: Laboratory Results - last 24 hr 01/27/25 04:03 Creatinine 1.80 H Estim Creat Clear Calc 44 Estimated GFR 37 L Quality VTE Prophylaxis VTE prophylaxis: pharmacologic ordered (Heparin GGT per protocol)
--- NOTE | 2025-01-27 09:46 | PM.PNGS ---
Progress Note: A&P Assessment and Plan (1) Atrial fibrillation with rapid ventricular response: Code(s): I48.91 - Unspecified atrial fibrillation Status: Acute Assessment and Plan: Sinus rhythm as of last EKG 01/22/2025. Heart rate 80s to 90s. On therapeutic dose of Lovenox for anticoagulation (2) Acute cholecystitis: Code(s): K81.0 - Acute cholecystitis Status: Acute Assessment and Plan: Much improved after cholecystostomy tube placed. From surgical perspective, patient can go home. He will go home with his cholecystostomy tube regardless. Will get Infectious Disease consultation regarding recommended antibiotic treatment now that gallbladder has been drained but still treating multifocal pneumonia. (3) Acute renal failure due to rhabdomyolysis: Code(s): N17.9 - Acute kidney failure, unspecified; M62.82 - Rhabdomyolysis Status: Acute Assessment and Plan: Improving (4) Multifocal pneumonia: Code(s): J18.8 - Other pneumonia, unspecified organism Status: Acute Assessment and Plan: Get Infectious Disease consultation tomorrow. Subjective Subjective Date/Time Seen: 01/27/25 09:46 Patient reports: feels better, pain is less, tolerating a regular diet and afebrile Review of Systems Review of Systems: All systems reviewed & are unremarkable except as noted in HPI and below (HPI) Exam Const: General: comfortable, alert and awake Orientation/consciousness: confusion GI: Inspection: obesity and other (Pigtail catheter now draining green bile) GI Palp: Yes Soft to palpation and No Tenderness to palpation present (GI) Objective Data Vital Signs Vital Signs: Vital Signs - 24 hr 01/26/25 12:00 01/26/25 13:22 01/26/25 14:09 Temperature 36.7 C Pulse Rate 73 75 87 Respiratory Rate 18 Blood Pressure 168/94 H Pulse Oximetry 96 95 Oxygen Delivery High Flow Nasal Cannula Oxygen Flow Rate 4 01/26/25 14:10 01/26/25 14:10 01/26/25 14:23 Temperature Pulse Rate 86 Respiratory Rate Blood Pressure Pulse Oximetry 96 93 93 Oxygen Delivery Nasal Cannula Nasal Cannula Nasal Cannula Oxygen Flow Rate 4 3 2 01/26/25 15:22 01/26/25 15:56 01/26/25 16:00 Temperature Pulse Rate 79 Respiratory Rate Blood Pressure Pulse Oximetry 95 89 L Oxygen Delivery Nasal Cannula Nasal Cannula Oxygen Flow Rate 2 1 01/26/25 17:10 01/26/25 20:00 01/26/25 20:00 Temperature Pulse Rate 70 Respiratory Rate Blood Pressure Pulse Oximetry 93 93 Oxygen Delivery Nasal Cannula Nasal Cannula Oxygen Flow Rate 2 2 01/26/25 20:49 01/26/25 22:00 01/27/25 00:00 Temperature 36.5 C Pulse Rate 79 80 Respiratory Rate 16 Blood Pressure 170/90 H Pulse Oximetry 93 93 Oxygen Delivery Nasal Cannula Oxygen Flow Rate 2 01/27/25 01:20 01/27/25 02:26 01/27/25 04:00 Temperature Pulse Rate 84 Respiratory Rate Blood Pressure 165/84 H Pulse Oximetry 92 Oxygen Delivery High Flow Nasal Cannula Oxygen Flow Rate 3 01/27/25 06:00 01/27/25 07:20 01/27/25 08:00 Temperature 36.8 C Pulse Rate 82 86 Respiratory Rate 16 Blood Pressure 154/92 H Pulse Oximetry 93 93 Oxygen Delivery Nasal Cannula Oxygen Flow Rate 3 01/27/25 08:28 01/27/25 08:36 Temperature Pulse Rate 82 Respiratory Rate Blood Pressure Pulse Oximetry 91 Oxygen Delivery Nasal Cannula Oxygen Flow Rate 3 Intake/Output Intake/Output: Intake & Output 01/24/25 01/25/25 01/26/25 01/27/25 23:59 23:59 23:59 23:59 Intake Total 2484.6 4350 2580 800 Output Total 5500 2665 2520 3220 Balance -3015.4 1685 60 -2420 Meds/Results Medications: Active Medications Generic Name Dose Route Start Last Admin Trade Name Freq PRN Reason Stop Dose Admin Acetaminophen 650 mg 01/21/25 02:19 01/21/25 09:30 Acetaminophen 325 Mg Tablet PO 650 mg Q4H PRN Administration Mild Pain (1-3) or Fever Enoxaparin Sodium 115 mg 01/24/25 13:25 01/27/25 08:28 Enoxaparin 120 Mg/0.8 Ml Syringe SUB-Q 115 mg Q12HR DREAD Administration Fish Oil 1 gm 01/21/25 09:00 01/27/25 08:28 [place] 3 Polyunsat Fatty Acids 1 Gm Cap PO 1 gm DAILY DREAD Administration Fluticasone Propionate 2 spray 01/23/25 21:00 01/27/25 08:28 Fluticasone Propionate 0.05% Na Spr 16 Gm Btl (*Bkc) NASAL 2 spray Q12HR DREAD Administration Guaifenesin 1,200 mg 01/25/25 21:00 01/27/25 08:28 Guaifenesin 12 Hr 600 Mg Tabcr PO 1,200 mg Q12HR DREAD Administration Piperacillin Sod/Tazobactam 50 mls @ 100 mls/hr 01/21/25 12:00 01/27/25 06:33 Sod 3.375 gm/ Sodium Chloride IVPB Infused Q6HR DREAD Infusion Sodium Chloride 1,000 mls @ 75 mls/hr 01/24/25 18:05 01/27/25 08:29 Normal Saline Iv IV CONT 75 mls/hr .[id number] DREAD Administration Levofloxacin/Dextrose 750 mg in 150 mls @ 100 mls/hr 01/25/25 15:00 01/25/25 16:39 Levaquin 750 Mg/D5w 150 Ml IVPB Infused Q48H DREAD Infusion Metoprolol Succinate 25 mg 01/22/25 09:00 01/27/25 08:28 Metoprolol Succinate Ext Rel 25 Mg Tabcr PO 25 mg QAM DREAD Administration Morphine Sulfate 2 mg 01/25/25 09:42 01/25/25 23:41 Morphine Sulfate (*Crx) 2 Mg/Ml Inj IV PUSH 2 mg Q3H PRN Administration Pain Rated 7-10 Ondansetron HCl 4 mg 01/21/25 02:19 Ondansetron Inj 4 Mg/2 Ml Vial IV PUSH Q4H PRN Nausea Pantoprazole Sodium 40 mg 01/24/25 21:00 01/27/25 08:57 Pantoprazole Sodium Iv 40 Mg Vial IV PUSH 40 mg Q12HR DREAD Administration Radiology Results: ITS Impressions Chest/Abdomen/Pelvis CTA 01/21/25 08:52 Impression: Distended gallbladder with suspected mild pericholecystic inflammatory change, suspicious for acute cholecystitis. Correlate clinically. Consider ultrasound and/or HIDA scan for further evaluation as indicated. Mild bibasilar pulmonary edema/atelectasis. Upper Quadrant Ultrasound 01/21/25 12:09 IMPRESSION: Limited evaluation of the pancreas secondary to overlying bowel gas. Layering sludge within the distended gallbladder. Borderline gallbladder wall thickening without pericholecystic fluid. Trace surrounding inflammatory change on CT examination performed approximately 12 hours earlier with indeterminate findings on ultrasound examination. If clinical suspicion persists for acalculous cholecystitis, HIDA scan would provide additional information. Hepatobiliary Scan Nuclear Medicine 01/23/25 10:21 IMPRESSION: 1. Nonvisualization of the gallbladder and the 30 minutes following morphine administration consistent with acute cholecystitis. Chest X-Ray 01/23/25 23:23 IMPRESSION: Left-sided pleural effusion with adjacent compressive atelectasis moderate pulmonary vascular congestion. Redemonstration platelike atelectasis within the right lung base Chest CT 01/24/25 18:49 IMPRESSION: 1. Bilateral lower lobe airspace consolidation which may represent pneumonia and/or atelectasis. 2: Dilated gallbladder with wall thickening, pericystic cholecystic phlegmonous change and possible associated abscess involving the margin of the liver. Findings compatible with acute cholecystitis with sequela. 3: Small pleural effusions. 4: Nonobstructive left nephrolithiasis. Cholecystostomy 01/25/25 14:15 IMPRESSION: 1. Successful ultrasound-guided cholecystostomy tube placement. 2. 50 mL bile was sent for aerobic, anaerobic, and fungal cultures. 3. The catheter will be managed by Dr. Huang. A catheter cholangiogram may be performed not less than 48 hours after tube placement if clinically indicated to assess cystic duct patency. If cholecystectomy is not eventually performed and the infectious episode has resolved, the tube may be removed over a guidewire, preferably not less than 3 weeks after placement to allow time for a mature catheter tract to form to prevent bile leakage and peritonitis. Labs Labs: Laboratory Results - last 24 hr 01/27/25 04:03 Creatinine 1.80 H Estim Creat Clear Calc 44 Estimated GFR 37 L
[2025-01-27] MEDS: levoFLOXacin 750 MG/D5W 150 ML 750 MG/150 ML BAG 100 MG IVPB (14:14)
[2025-01-28] VITALS (11 sets, daily range): BP systolic 151–158; BP diastolic 80–103; PULSE 69–101; RESP 18–22; TEMP 36.3–36.8; O2SAT 91–96
[2025-01-28] MEDS: PIPERACILLIN/TAZOBACTAM SOD 3.375 GM in SODIUM CHLORIDE 0.9% IV 50 ML 100 ML IVPB ×3 (00:34→11:20)
[2025-01-28] MEDS: SODIUM CHLORIDE 0.9% IV 1,000 ML 75 ML IV CONT ×2 (02:00→19:30)
[2025-01-28 05:02] LABS: Hematocrit 39.5 % (42.0-52.0); Hemoglobin 13.3 g/dL (14.0-18.0); Immature Granulocyte Percent A 9.1 % (0-0.5); Lymphocytes Absolute Auto 1.35 K/mm3 (0.9-3.2); Mean Corpuscular HGB Conc 33.7 g/dl (32-36); Mean Corpuscular Hemoglobin 31.2 pg (26-34); Mean Corpuscular Volume 92.7 fl (80-100); Nucleated Red Blood Cells Absolute Auto 0.000 K/mm3 (0.0-0.012); Nucleated Red Blood Cells Perc 0.0 % (0.0-0.2); Platelet Count Result 273 k/mm3 (150-375); Red Blood Count 4.26 M/mm3 (4.6-6.20); White Blood Count 13.6 K/mm3 (4.5-10.0)
[2025-01-28 05:17] LABS: Alanine Aminotransferase 73 U/L (6-50); Albumin Level 2.5 g/dL (3.5-5.1); Alkaline Phosphatase 90 U/L (38-126); Anion Gap 6 mmol/L (4-12); Aspartate Amino Transferase 62 U/L (17-59); Bilirubin,Total 1.8 mg/dL (0.2-1.3); Blood Urea Nitrogen 32 mg/dL (9-20); Calcium 7.6 mg/dL (8.4-10.2); Carbon Dioxide 24 mmol/L (22-30); Chloride 104 mmol/L (98-107); Estimated CRCL calculation 46 ml/min; Estimated Glomerular Filt Rate 38; Glucose 132 mg/dL (65-110); Potassium 2.9 mmol/L (3.4-5.0); Sodium 134 mmol/L (137-145); Total Protein 5.5 g/dL (6.3-8.2)
[2025-01-28] MEDS: METOPROLOL SUCCINATE EXT REL 25 MG TABCR PO (08:26)
[2025-01-28] MEDS: OMEGA 3 POLYUNSAT FATTY ACIDS 1 GM CAP PO (08:26)
[2025-01-28] MEDS: PANTOPRAZOLE SODIUM IV 40 MG VIAL IV PUSH ×2 (08:26→20:19)
[2025-01-28] MEDS: guaiFENesin 12 HR 600 MG TABCR 1200 MG PO ×2 (08:26→20:19)
[2025-01-28] MEDS: ENOXAPARIN 120 MG/0.8 ML SYRINGE 115 MG SUB-Q (08:27)
[2025-01-28] MEDS: FLUTICASONE PROPIONATE 0.05% NA SPR 16 GM BTL (*BKC) 2 SPRAY NASAL ×2 (08:28→20:20)
--- NOTE | 2025-01-28 08:37 | P.PNPL_ITS ---
Progress Note: A&P Assessment and Plan (1) Respiratory failure with hypoxia: Code(s): J96.91 - Respiratory failure, unspecified with hypoxia Status: Acute Assessment and Plan: Patient is a never smoker and has no baseline respiratory limitations in his activities of daily living. He goes to the gymnasium 2 times a week and walks 1.5 miles without respiratory limitations. Patient presented on 01/20 after being on the floor for 11 hours with rhabdomyolysis, hypoxic respiratory failure, AFib RVR and was treated with antibiotics, IV fluids. He developed evidence of cholecystitis and has undergone a percutaneous cholecystotomy drain today. He required 4 L nasal cannula in the emergency room with a blood gas of 7.4 11/30/2054. His blood gas today on 6 L nasal cannula 7.50// and currently is on 4 L nasal cannula with saturations 91%. Patient has no specific respiratory complaints. He denies rest shortness of breath, cough, phlegm, hemoptysis. He has been walking and says he has no dys pnea on exertion. Etiology of patient's hypoxic respiratory failure include: bibasilar pneumonia, pleural effusions with compressive atelectasis, lower lobe atelectasis, fluid overload, doubt ARDS from cholecystitis, doubt amiodarone toxicity. Plan: Patient is currently being treated for cholecystitis and possible pneumonia with vancomycin, Zosyn and doxycycline. I have order respiratory pathogen panel, mycoplasma IgM, urine pneumococcal and urine streptococcal antigen are pending. Blood cultures from 01/21. I will order incentive spirometry and EzPAP to try to treat his atelectasis. He should be out of bed to chair as tolerated. He is not making any phlegm at this time. I will add guaifenesin in case he has sputum that he can not expectorate. I will order a BNP, patient is 3 L negative with 40 mg of IV Lasix yesterday. Agree with holding Lasix as creatinine is 2.04 today. Would try to minimize fluid input. Would restart gentle diuresis as tolerated by his renal function. Inpatient Pulmonary consultative services will resume on 01/28/2025, call the on-call physician for questions. 01/28/25: Patient tells me he has no breathing complaints. He has no rest shortness of breath. He walked in the hallways and denied dyspnea on exertion. He denies fever, chills, rigors, cough, phlegm, hemoptysis. Currently is on 3 L nasal cannula saturations 93%. White blood cell count 13.6, creatinine 1.74, BNP 2200, chest x-ray today compared with 01/23/2025 with unchanged elevated right hemidiaphragm, possible small right pleural effusion, new platelike ate lectasis left mid lung zone with improved aeration of the left lower lobe. yesterday he was minus 2 L cumulative he is -5.4 L since admission. His weight today is 118.1 kg. Patient very clear treated for possible bacterial pneumonia, he has atelectasis, pleural effusions with compressive atelectasis, possible mucus plugging and fluid overload. Plan: From a pulmonary perspective patient is ready to be discharged on these pulmonary medications: Guaifenesin 600 mg p.o. b.i.d. p.r.n. congestion Oxygen at rest and with activity per formal home O2 assessment which I have ordered. I have told the patient to purchase a pulse oximeter with a goal saturation greater than 90% and that he could wean his oxygen to off as he continues to improve. Oxygen when he sleeps at the same L flow he is prescribed with activity Antibiotics per Infectious Disease consult Diuretics per hospitalist team. Follow-up with his PCP. Discussed with Dr. Oleary, will sign off, call with questions Subjective Date/time seen: 01/28/25 08:37 Interval history: 01/25/2025: This is a new pulmonary consult for oxygen requirements 74-year-old with a history of hypertension, esophageal strictures, DJD, right knee osteoarthritis, chronic hearing loss, mild cognitive impairment. At baseline patient has no respiratory limitations in his activities of daily living. He goes to the gymnasium 2 times a week and works out on the elliptical for 5 minutes and then does machine weights for at least 10 minutes and has no respiratory limitations. Two weeks ago he walked 1-1/2 miles at the [facility] and had no respiratory limitations. He is a never smoker. 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 On 01/21/2025 the patient was brought to the emergency room after being on the floor for 12 hours. He required 4 L nasal cannula in the emergency room with an ABG of 7.4 11/30/2054. His white blood cell count was 11.5, his creatinine was 1.52, his CPK was 10,409, COVID influenza and RSV RT PCR assay negative. and his CRP was 37.2. He had AFib with RVR And was treated with diltiazem without success and then amiodarone. Patient had a CT angiogram of the chest with mild pulmonary edema and atelectasis in the bases. On 01/24 patient required 1-2 L nasal cannula that increased to 6 L nasal cannula. On 01/25 the patient underwent a percutaneous cholecystostomy tube. 01/25/2025: Currently the patient has no specific respiratory complaints. He says he has no shortness of breath at rest, no cough not, no hemoptysis, no phlegm, no dyspnea on exertion when he was walking the hallway. Overall he feels much better. Currently the patient is on 4 L nasal cannula with saturation 91%. He is afebrile. White blood cell count 14.4, creatinine 2.04. ABG on 6 L nasal cannula 7.50//58. Yesterday he diuresed 3 L cumulative he is 1.5 L positive since admission. 01/28/25: Patient tells me he has no breathing complaints. He has no rest shortness of breath. He walked in the hallways and denied dyspnea on exertion. He denies fever, chills, rigors, cough, phlegm, hemoptysis. Currently is on 3 L nasal cannula saturations 93%. White blood cell count 13.6, creatinine 1.74, BNP 2200, chest x-ray today compared with 01/23/2025 with unchanged elevated right hemidiaphragm, possible small right pleural effusion, new platelike atelectasis left mid lung zone with improved aeration of the left lower lobe. yesterday he was minus 2 L cumulative he is -5.4 L since admission. His weight today is 118.1 kg. DATA: 01/24/25: EXAMINATION: CT diagnostic chest wo con INDICATION: Pulmonary edema versus pneumonia COMPARISON: CT dated 01/20/2025 FINDINGS: There are calcified granulomas of the spleen. The pancreas, adrenal glands are unremarkable. There is a small nonobstructing left renal stone. Kidneys are only partially visualized. There is distention of the gallbladder with gallbladder wall thickening. There is been progression of surrounding pericholecystic phlegmonous change with a fluid collection adjacent to the gallbladder medially measuring 5.1 x 3.8 cm, suspicious for abscess, possibly involving the liver parenchyma. Small pleural effusions. Bilateral lower lobe airspace consolidation. No pneumothorax. No endobronchial lesions. IMPRESSION: 1. Bilateral lower lobe airspace consolidation which may represent pneumonia and/or atelectasis. 2: Dilated gallbladder with wall thickening, pericystic cholecystic phlegmonous change and possible associated abscess involving the margin of the liver. Findings compatible with acute cholecystitis with sequela. 3: Small pleural effusions. 4: Nonobstructive left nephrolithiasis. 12/09/2022: This is a pulmonary function test with pre and post-bronchodilator spirometry, plethysmography and diffusing capacity. The test was performed and results interpreted in accordance with the 2019 and 2005 ATS/ERS Task Force guidelines respectively using the Global Lung Function Initiative-2012 reference equations. Patient demonstrated good effort and cooperation. Reproducibility criteria were met. The quality of the pre bronchodilator spirometry maneuver was Grade A and post bronchodilator spirometry maneuver was Grade A. Findings: Spirometry: The contour the inspiratory and expiratory flow tracing are normal. The pre bronchodilator FVC is 5.26 L, 105% predicted. The pre bronchodilator FEV1 is 3.69 L, 100% predicted. The pre bronchodilator FEV1: FVC ratio 70%. The post bronchodilator FVC is 5.51 L, representing a 5% decrease. The post bronchodilator FEV1 is 3.79 L, representing a 3% increase. The post bronchodilator FEV1: FVC ratio 69%. Plethysmography: The total lung capacity is 8.59 L, 104% predicted. The functional residual capacity is 4.53 L, 101% predicted. The residual volume is 3.07 L, 107% predicted. Diffusion capacity: The diffusing capacity unadjusted for hemoglobin and carboxyhemoglobin is 20.0, 72% predicted. The diffusing capacity adjusted for alveolar volume a 2.77, 80% predicted. Impression: The spirometry is normal without evidence of an obstructive abnormality. There is no significant improvement after inhaling a single dose of albuterol. The lung volumes are normal. The diffusing capacity is normal. There are no prior studies for comparison Review of Systems Constitutional: Constitutional: Reports no additional constitutional complaints Eyes: Eyes: Reports no additional eye complaints ENT: Reports system reviewed and no additional complaints, except as documented Cardiovascular: Cardiovascular: Reports no additional cardiovascular complaints Respiratory: Respiratory: Reports no additional respiratory complaints Gastrointestinal: Gastrointestinal: Reports no additional gastrointestinal complaints Musculoskeletal: Musculoskeletal: Reports no additional musculoskeletal complaints Neurologic: Reports system reviewed and no additional complaints, except as documented Psychiatric: Psychiatric: Reports no additional psychiatric complaints Endocrine: Endocrine: Reports no additional endocrine complaints Hematologic/Lymphatic: Hematologic/Lymphatic: Reports no additional hematologic/lymphatic complaints Allergic/Immunologic: Allergic/Immunologic: Reports no additional allergic/immunologic complaints Exam Const: General: cooperative, healthy appearing and comfortable Orientation/consciousness: oriented to person, oriented to place and oriented to time HENMT: Head: normal to inspection Ears: hearing grossly normal bilaterally Eyes: General: appearance normal, both eyes and all related structures Neck: Neck: normal visual inspection Chest: Chest palpation & inspection: normal inspection of the chest Resp: Effort & Inspection: normal respiratory effort and able to speak in complete sentences Auscultation: crackles, no rales, no rhonchi, no wheezes and lung sounds not diminished Other: bibasilar crackles. Cardio: Jugular venous distension: no JVD GI: Inspection: normal to inspection Skin: General skin exam: normal color Neuro: General: oriented to person, oriented to place and oriented to time Extrem: General: normal to inspection and no edema Psych: Appearance: grossly normal Objective Data Vital Signs Vital Signs: Vital Signs - 24 hr 01/27/25 12:00 01/27/25 13:57 01/27/25 14:24 Temperature Pulse Rate 79 Respiratory Rate Blood Pressure Pulse Oximetry 94 Oxygen Delivery Nasal Cannula Nasal Cannula Oxygen Flow Rate 3 3 Fraction of Inspired Oxygen 01/27/25 15:35 01/27/25 16:00 01/27/25 19:52 Temperature 36.3 C L Pulse Rate 73 67 74 Respiratory Rate 16 20 Blood Pressure 135/87 Pulse Oximetry 98 93 Oxygen Delivery Nasal Cannula Oxygen Flow Rate 3 Fraction of Inspired Oxygen 32 01/27/25 20:00 01/27/25 20:41 01/28/25 00:00 Temperature 36.8 C Pulse Rate 73 69 69 Respiratory Rate 18 Blood Pressure 152/82 H Pulse Oximetry 94 Oxygen Delivery Oxygen Flow Rate Fraction of Inspired Oxygen 01/28/25 04:00 01/28/25 04:34 01/28/25 08:20 Temperature 36.8 C Pulse Rate 81 88 Respiratory Rate 18 Blood Pressure 151/88 H Pulse Oximetry 93 91 Oxygen Delivery Nasal Cannula Oxygen Flow Rate 3 Fraction of Inspired Oxygen 01/28/25 08:21 01/28/25 08:26 Temperature 36.8 C Pulse Rate 90 80 Respiratory Rate 22 H Blood Pressure 158/103 H Pulse Oximetry 91 Oxygen Delivery Oxygen Flow Rate Fraction of Inspired Oxygen Intake/Output Intake/Output: Intake & Output 01/25/25 01/26/25 01/27/25 01/28/25 23:59 23:59 23:59 23:59 Intake Total 4350 2580 2970 650 Output Total 2665 2520 5060 2615 Balance 8689 00 -3200 -7226 Meds/Results Medications: Active Medications Generic Name Dose Route Start Last Admin Trade Name Freq PRN Reason Stop Dose Admin Acetaminophen 650 mg 01/21/25 02:19 01/21/25 09:30 Acetaminophen 325 Mg Tablet PO 650 mg Q4H PRN Administration Mild Pain (1-3) or Fever Enoxaparin Sodium 115 mg 01/24/25 13:25 01/28/25 08:27 Enoxaparin 120 Mg/0.8 Ml Syringe SUB-Q 115 mg Q12HR DREAD Administration Fish Oil 1 gm 01/21/25 09:00 01/28/25 08:26 [place] 3 Polyunsat Fatty Acids 1 Gm Cap PO 1 gm DAILY DREAD Administration Fluticasone Propionate 2 spray 01/23/25 21:00 01/28/25 08:28 Fluticasone Propionate 0.05% Na Spr 16 Gm Btl (*Bkc) NASAL 2 spray Q12HR DREAD Administration Guaifenesin 1,200 mg 01/25/25 21:00 01/28/25 08:26 Guaifenesin 12 Hr 600 Mg Tabcr PO 1,200 mg Q12HR DREAD Administration Piperacillin Sod/Tazobactam 50 mls @ 100 mls/hr 01/21/25 12:00 01/28/25 06:51 Sod 3.375 gm/ Sodium Chloride IVPB Infused Q6HR DREAD Infusion Sodium Chloride 1,000 mls @ 75 mls/hr 01/24/25 18:05 01/28/25 02:00 Normal Saline Iv IV CONT 75 mls/hr .[id number] DREAD Administration Metoprolol Succinate 25 mg 01/22/25 09:00 01/28/25 08:26 Metoprolol Succinate Ext Rel 25 Mg Tabcr PO 25 mg QAM DREAD Administration Morphine Sulfate 2 mg 01/25/25 09:42 01/25/25 23:41 Morphine Sulfate (*Crx) 2 Mg/Ml Inj IV PUSH 2 mg Q3H PRN Administration Pain Rated 7-10 Ondansetron HCl 4 mg 01/21/25 02:19 Ondansetron Inj 4 Mg/2 Ml Vial IV PUSH Q4H PRN Nausea Pantoprazole Sodium 40 mg 01/24/25 21:00 01/28/25 08:26 Pantoprazole Sodium Iv 40 Mg Vial IV PUSH 40 mg Q12HR DREAD Administration Radiology Results: ITS Impressions Chest/Abdomen/Pelvis CTA 01/21/25 08:52 Impression: Distended gallbladder with suspected mild pericholecystic inflammatory change, suspicious for acute cholecystitis. Correlate clinically. Consider ultrasound and/or HIDA scan for further evaluation as indicated. Mild bibasilar pulmonary edema/atelectasis. Upper Quadrant Ultrasound 01/21/25 12:09 IMPRESSION: Limited evaluation of the pancreas secondary to overlying bowel gas. Layering sludge within the distended gallbladder. Borderline gallbladder wall thickening without pericholecystic fluid. Trace surrounding inflammatory change on CT examination performed approximately 12 hours earlier with indeterminate findings on ultrasound examination. If clinical suspicion persists for acalculous cholecystitis, HIDA scan would provide additional information. Hepatobiliary Scan Nuclear Medicine 01/23/25 10:21 IMPRESSION: 1. Nonvisualization of the gallbladder and the 30 minutes following morphine administration consistent with acute cholecystitis. Chest CT 01/24/25 18:49 IMPRESSION: 1. Bilateral lower lobe airspace consolidation which may represent pneumonia and/or atelectasis. 2: Dilated gallbladder with wall thickening, pericystic cholecystic phlegmonous change and possible associated abscess involving the margin of the liver. Findings compatible with acute cholecystitis with sequela. 3: Small pleural effusions. 4: Nonobstructive left nephrolithiasis. Cholecystostomy 01/25/25 14:15 IMPRESSION: 1. Successful ultrasound-guided cholecystostomy tube placement. 2. 50 mL bile was sent for aerobic, anaerobic, and fungal cultures. 3. The catheter will be managed by Dr. Huang. A catheter cholangiogram may be performed not less than 48 hours after tube placement if clinically indicated to assess cystic duct patency. If cholecystectomy is not eventually performed and the infectious episode has resolved, the tube may be removed over a guidewire, preferably not less than 3 weeks after placement to allow time for a mature catheter tract to form to prevent bile leakage and peritonitis. Labs Labs: Laboratory Results - last 24 hr 01/28/25 04:22 WBC 13.6 H RBC 4.26 L Hgb 13.3 L Hct 39.5 L MCV 92.7 MCH 31.2 MCHC 33.7 RDW 14.3 Plt Count 273 MPV 9.7 Immature Gran % (Auto) 9.1 H Neut % (Auto) 72.4 Lymph % (Auto) 9.9 L Boundary % (Auto) 7.2 Eos % (Auto) 1.1 Baso % (Auto) 0.3 Lymph # (Auto) 1.35 Boundary # (Auto) 1.0 H Eos # (Auto) 0.2 Baso # (Auto) 0.0 Abs Immat Gran (auto) 1.24 H Absolute Neuts (auto) 9.8 H Absolute Nucleated RBC 0.000 Nucleated RBC % 0.0 Sodium 134 L Potassium 2.9 L Chloride 104 Carbon Dioxide 24 Anion Gap 6 BUN 32 H D Creatinine 1.74 H Estim Creat Clear Calc 46 Estimated GFR 38 L Glucose 132 H Calcium 7.6 L Total Bilirubin 1.8 H AST 62 H ALT 73 H Alkaline Phosphatase 90 Total Protein 5.5 L Albumin 2.5 L
--- NOTE | 2025-01-28 08:42 | P.PNIM_ITS ---
Progress Note: A&P Assessment and Plan (1) Severe sepsis: Code(s): A41.9 - Sepsis, unspecified organism; R65.20 - Severe sepsis without septic shock Status: Acute (2) Multifocal pneumonia: Code(s): J18.8 - Other pneumonia, unspecified organism Status: Acute (3) Colitis: Code(s): K52.9 - Noninfective gastroenteritis and colitis, unspecified Status: Acute (4) Acute renal failure due to rhabdomyolysis: Code(s): N17.9 - Acute kidney failure, unspecified; M62.82 - Rhabdomyolysis Status: Acute (5) Transaminitis: Status: Acute (6) Acute dehydration: Code(s): E86.0 - Dehydration Status: Acute (7) Atrial fibrillation with rapid ventricular response: Code(s): I48.91 - Unspecified atrial fibrillation Status: Acute (8) GERD (gastroesophageal reflux disease): Qualifiers: Esophagitis presence: esophagitis presence not specified Qualified Code(s): K21.9 - Gastro-esophageal reflux disease without esophagitis Code(s): K21.9 - Gastro-esophageal reflux disease without esophagitis Status: Acute (9) Elevated troponin: Code(s): R79.89 - Other specified abnormal findings of blood chemistry Status: Acute (10) Memory impairment: Code(s): R41.3 - Other amnesia Status: Acute Plan Assessment and Plan (1) Severe sepsis: vital signs sable and within normal limits From Cholecystitis Continue Zosyn Blood culture and urine culture pain Monitor vitals (2) Multifocal pneumonia: CT chest reviewed S/p Levaquin, vanc discontinued as MRSA is negative Continue Zosyn Monitor sputum Same as above (3) Colitis: Continue Zosyn (4) Acute renal failure due to rhabdomyolysis: Due to fall Continue IV hydration Echocardiogram pending Cr 1.74 from 2.04 Monitor I and O (5) Transaminitis, improving Improving, being managed for cholecystitis Monitor LFTs (6) Acute dehydration: Continue IV fluids (7) Atrial fibrillation with rapid ventricular response: Started on amiodarone On metoprolol 25 mg p.o. q.d. Now on Lovenox, will switch to DOAC if hemoglobin continues to be stable Will be transitioned to oral anticoagulant from tomorrow ECHO reviewed (8) GERD (gastroesophageal reflux disease): K21.9 - Gastro-esophageal reflux disease without esophagitis (9) Elevated troponin: Possibly due to rhabdomyolysis ECHO 50-55%, no regional wall motion abnormalities Cardiology noted no further intervention if no regional wall motion abnormalities Cardiology on board (10) Memory impairment: Code(s): R41.3 - Other amnesia Status: Acute Acute cholecystitis HIDA scan showed acute cholecystitis Continue above abx Monitor cultures GI evaluated and no concern for CBD obstruction that will require ERCP S/p Per Cholecystostomy , draining dark sludge Continue Antibiotics ID consulted for antibiotics adjustment GEn surgery okay with the discharge with Cholecystostomy tube Stool brown and Hb stable and GI bleed ruled out Gi evaluated and recommended to monitor for now monitor Acute hypoxemic respiratory failure Patient on room air at baseline now on 3L down from 5L CT chest reviewed and continue abx as above Discussed with Pulmonology this morning, and he recommended Home oxygen eval monitor Plan Code status: Full code DVT prophylaxis: On Eliquis Subjective Date/time seen: 01/28/25 08:42 Interval history: Comfortable at bedside Comfortable at bedside Review of Systems Review of Systems: Review of systems limited due to the patient's clinical condition and chronic hearing loss. Exam Narrative: Weight 115.8 kg BMI 31.1 Const: Other: Acutely ill-appearing, appears stated age, well-developed well-nourished HENMT: Other: Mucous membranes are dry, no oral pharyngeal erythema, head is normocephalic atraumatic Eyes: Other: Pupils are equal and reactive, mild scleral icterus, no conjunctival pallor, extraocular movements intact Neck: Other: No JVD, no lymphadenopathy Resp: Other: Marked tachypnea with respiratory rate in the mid 30s, accessory muscle use with abdominal respirations Cardio: Other: Irregularly irregular, tachycardic, 2+ bilateral radial pedal pulses, no JVD GI: Other: Markedly tender in the right upper quadrant area, abdomen was sent initially distended but on repeat evaluation after Armenta catheter lower abdomen is much softer, normoactive bowel sounds, no tympany : Other: Armenta catheter was placed was at bedside patient had turbid coke colored urine about 250 mL Skin: Other: Hot to touch, jaundice, 3-4 second cap refill Neuro: Other: Alert oriented to person, place and month confused as to the year thought the ye ar was 2021 speech is clear, chronic hearing loss, no gross motor deficits noted on exam no facial asymmetry Extrem: Other: No clubbing, cyanosis or edema, moves all extremities equally, 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 Psych: Other: Appropriately anxious, otherwise pleasant and cooperative Objective Data Vital Signs Vital Signs: Vital Signs - 24 hr 01/27/25 12:00 01/27/25 13:57 01/27/25 14:24 Temperature Pulse Rate 79 Respiratory Rate Blood Pressure Pulse Oximetry 94 Oxygen Delivery Nasal Cannula Nasal Cannula Oxygen Flow Rate 3 3 Fraction of Inspired Oxygen 01/27/25 15:35 01/27/25 16:00 01/27/25 19:52 Temperature 97.3 F L Pulse Rate 73 67 74 Respiratory Rate 16 20 Blood Pressure 135/87 Pulse Oximetry 98 93 Oxygen Delivery Nasal Cannula Oxygen Flow Rate 3 Fraction of Inspired Oxygen 32 01/27/25 20:00 01/27/25 20:41 01/28/25 00:00 Temperature 98.2 F Pulse Rate 73 69 69 Respiratory Rate 18 Blood Pressure 152/82 H Pulse Oximetry 94 Oxygen Delivery Oxygen Flow Rate Fraction of Inspired Oxygen 01/28/25 04:00 01/28/25 04:34 01/28/25 08:20 Temperature 98.2 F Pulse Rate 81 88 Respiratory Rate 18 Blood Pressure 151/88 H Pulse Oximetry 93 91 Oxygen Delivery Nasal Cannula Oxygen Flow Rate 3 Fraction of Inspired Oxygen 01/28/25 08:21 01/28/25 08:26 01/28/25 08:26 Temperature 98.3 F Pulse Rate 90 80 80 Respiratory Rate 22 H 22 H Blood Pressure 158/103 H Pulse Oximetry 91 91 Oxygen Delivery Nasal Cannula Oxygen Flow Rate 3 Fraction of Inspired Oxygen 32 01/28/25 08:26 Temperature Pulse Rate 91 Respiratory Rate Blood Pressure Pulse Oximetry Oxygen Delivery Oxygen Flow Rate Fraction of Inspired Oxygen Intake/Output Intake/Output: Intake & Output 01/25/25 01/26/25 01/27/25 01/28/25 23:59 23:59 23:59 23:59 Intake Total 4350 2580 2970 650 Output Total 2665 2520 5060 2615 Balance 2014 60 [phone] Meds/Results Medications: Active Medications Generic Name Dose Route Start Last Admin Trade Name Freq PRN Reason Stop Dose Admin Acetaminophen 650 mg 01/21/25 02:19 01/21/25 09:30 Acetaminophen 325 Mg Tablet PO 650 mg Q4H PRN Administration Mild Pain (1-3) or Fever Enoxaparin Sodium 115 mg 01/24/25 13:25 01/28/25 08:27 Enoxaparin 120 Mg/0.8 Ml Syringe SUB-Q 115 mg Q12HR DREAD Administration Fish Oil 1 gm 01/21/25 09:00 01/28/25 08:26 [place] 3 Polyunsat Fatty Acids 1 Gm Cap PO 1 gm DAILY DREAD Administration Fluticasone Propionate 2 spray 01/23/25 21:00 01/28/25 08:28 Fluticasone Propionate 0.05% Na Spr 16 Gm Btl (*Bkc) NASAL 2 spray Q12HR DREAD Administration Guaifenesin 1,200 mg 01/25/25 21:00 01/28/25 08:26 Guaifenesin 12 Hr 600 Mg Tabcr PO 1,200 mg Q12HR DREAD Administration Piperacillin Sod/Tazobactam 50 mls @ 100 mls/hr 01/21/25 12:00 01/28/25 06:51 Sod 3.375 gm/ Sodium Chloride IVPB Infused Q6HR DREAD Infusion Sodium Chloride 1,000 mls @ 75 mls/hr 01/24/25 18:05 01/28/25 02:00 Normal Saline Iv IV CONT 75 mls/hr .[id number] DREAD Administration Metoprolol Succinate 25 mg 01/22/25 09:00 01/28/25 08:26 Metoprolol Succinate Ext Rel 25 Mg Tabcr PO 25 mg QAM DREAD Administration Morphine Sulfate 2 mg 01/25/25 09:42 01/25/25 23:41 Morphine Sulfate (*Crx) 2 Mg/Ml Inj IV PUSH 2 mg Q3H PRN Administration Pain Rated 7-10 Ondansetron HCl 4 mg 01/21/25 02:19 Ondansetron Inj 4 Mg/2 Ml Vial IV PUSH Q4H PRN Nausea Pantoprazole Sodium 40 mg 01/24/25 21:00 01/28/25 08:26 Pantoprazole Sodium Iv 40 Mg Vial IV PUSH 40 mg Q12HR DREAD Administration Radiology Results: ITS Impressions Chest/Abdomen/Pelvis CTA 01/21/25 08:52 Impression: Distended gallbladder with suspected mild pericholecystic inflammatory change, suspicious for acute cholecystitis. Correlate clinically. Consider ultrasound and/or HIDA scan for further evaluation as indicated. Mild bibasilar pulmonary edema/atelectasis. Upper Quadrant Ultrasound 01/21/25 12:09 IMPRESSION: Limited evaluation of the pancreas secondary to overlying bowel gas. Layering sludge within the distended gallbladder. Borderline gallbladder wall thickening without pericholecystic fluid. Trace surrounding inflammatory change on CT examination performed approximately 12 hours earlier with indeterminate findings on ultrasound examination. If clinical suspicion persists for acalculous cholecystitis, HIDA scan would provide additional information. Hepatobiliary Scan Nuclear Medicine 01/23/25 10:21 IMPRESSION: 1. Nonvisualization of the gallbladder and the 30 minutes following morphine administration consistent with acute cholecystitis. Chest CT 01/24/25 18:49 IMPRESSION: 1. Bilateral lower lobe airspace consolidation which may represent pneumonia and/or atelectasis. 2: Dilated gallbladder with wall thickening, pericystic cholecystic phlegmonous change and possible associated abscess involving the margin of the liver. Findings compatible with acute cholecystitis with sequela. 3: Small pleural effusions. 4: Nonobstructive left nephrolithiasis. Cholecystostomy 01/25/25 14:15 IMPRESSION: 1. Successful ultrasound-guided cholecystostomy tube placement. 2. 50 mL bile was sent for aerobic, anaerobic, and fungal cultures. 3. The catheter will be managed by Dr. Huang. A catheter cholangiogram may be performed not less than 48 hours after tube placement if clinically indicated to assess cystic duct patency. If cholecystectomy is not eventually performed and the infectious episode has resolved, the tube may be removed over a guidewire, preferably not less than 3 weeks after placement to allow time for a mature catheter tract to form to prevent bile leakage and peritonitis. Chest X-Ray 01/28/25 08:38 Impression: 1: Right basilar airspace disease may represent atelectasis or pneumonia. No significant change. 2: Subsegmental left basilar atelectasis. Labs Labs: Laboratory Results - last 24 hr 01/28/25 04:22 WBC 13.6 H RBC 4.26 L Hgb 13.3 L Hct 39.5 L MCV 92.7 MCH 31.2 MCHC 33.7 RDW 14.3 Plt Count 273 MPV 9.7 Immature Gran % (Auto) 9.1 H Neut % (Auto) 72.4 Lymph % (Auto) 9.9 L [place] % (Auto) 7.2 Eos % (Auto) 1.1 Baso % (Auto) 0.3 Lymph # (Auto) 1.35 [place] # (Auto) 1.0 H Eos # (Auto) 0.2 Baso # (Auto) 0.0 Abs Immat Gran (auto) 1.24 H Absolute Neuts (auto) 9.8 H Absolute Nucleated RBC 0.000 Nucleated RBC % 0.0 Sodium 134 L Potassium 2.9 L Chloride 104 Carbon Dioxide 24 Anion Gap 6 BUN 32 H D Creatinine 1.74 H Estim Creat Clear Calc 46 Estimated GFR 38 L Glucose 132 H Calcium 7.6 L Total Bilirubin 1.8 H AST 62 H ALT 73 H Alkaline Phosphatase 90 Total Protein 5.5 L Albumin 2.5 L Quality VTE Prophylaxis VTE prophylaxis: pharmacologic ordered (Heparin GGT per protocol)
[2025-01-28 09:06] LABS: NT Pro B Type Natriuretic Pept 2200 pg/mL (19.9-100)
--- NOTE | 2025-01-28 09:51 | WPDIDCN ---
Assessment and Plan Assessment and plan (1) Acute cholecystitis: Code(s): K81.0 - Acute cholecystitis Status: Acute (2) History of percutaneous insertion of cholecystostomy tube: Code(s): Z98.890 - Other specified postprocedural states Status: Acute (3) Multifocal pneumonia: Code(s): J18.8 - Other pneumonia, unspecified organism Status: Acute (4) Rhabdomyolysis: Code(s): M62.82 - Rhabdomyolysis Status: Acute (5) Transaminitis: Status: Acute (6) Hyperbilirubinemia: Code(s): E80.6 - Other disorders of bilirubin metabolism Status: Acute (7) Acute renal failure due to rhabdomyolysis: Code(s): N17.9 - Acute kidney failure, unspecified; M62.82 - Rhabdomyolysis Status: Acute (8) Atrial fibrillation with rapid ventricular response: Code(s): I48.91 - Unspecified atrial fibrillation Status: Acute (9) Hypoxemia: Code(s): R09.02 - Hypoxemia Status: Acute Plan # Acute cholecystitis status post cholecystostomy tube placement. -- drainage cultures are pending. Gram-negative rods to date. -- transaminases and bilirubin improving. -- day 8 of Zosyn directed toward the above as well as pneumonia. # Possible basilar pneumonia. -- not definitive based on radiographic studies. May represent basilar atelectasis. -- noted to have hypoxemia which has improved but not resolved to baseline. May be a manifestation of residual sepsis. # Acute rhabdomyolysis with WEI after being found down at home. # Residual low-grade leukocytosis. # Residual hypoxemia, albeit improved. Plan: -- has essentially completed a course of empiric Zosyn for suspected pneumonia and should only require an additional limited course of continued antibiotics post cholecystostomy tube drainage. Consequently, direct planned discharge antibiotics toward completion of treatment for acute cholecystitis post cholecystostomy tube drainage. -- ideally, continued antibiotics should be based on gallbladder culture. These cultures remain pending With Gram-negative rods identified to date. With persistent albeit improved hypoxemia and leukocytosis will change Zosyn to meropenem 1 g IV q.12 hours pending biliary fluid Gram negative yoav identification and sensitivities. Additional adjustment in antibiotic may be required once gallbladder cultures become available. Anticipate a 7 day course of appropriate antibiotics directed toward bile cultures. -- continue to monitor O2 saturation with ongoing diuresis. -- follow white blood cell count is an outpatient. -- further recommendations to follow. Thank you for the consult. Patient was seen via video telehealth consultation with the assistance of staff. Chart, data, and patient independently reviewed. Patient was located at [facility] while I was located in my [place] office. Received verbal consent from patient. HPI Data of Consult Date/Time: 01/28/25 09:51 Requesting Physician: Madai Carrero DO Primary Care Provider: Anshul Mason MD Consult Narrative Reason for consult: Antibiotic recommendations for discharge. Narrative: Oleg Tay is a 74 year old male Who presented to the ED 01/20/2025 after being found down at home. Past medical history significant for hypertension, mild cognitive impairment, chronic hearing loss, dyslipidemia, and GERD. Upon presentation he was noted to be febrile and tachycardic in new AFib. Additionally diagnosed with rhabdomyolysis with CPK greater than 10,000, acute kidney injury, and lactic acidosis. Presumed to be septic with CT suggesting colitis and pneumonia. Note: Chest x-ray suggested bibasilar infiltrates versus atelectasis while CT of the chest shows bibasilar pulmonary edema and/or atelectatic change. Also noted to have hyperbilirubinemia with transaminitis suspected secondary to rhabdomyolysis but presentation CT of abdomen identified distended gallbladder with suspected mild pericholecystic inflammatory change that might be suspicious for acute cholecystitis. Patient was having intermittent upper abdominal pain. Ultrasound of gallbladder showed layering sludge within the distended gallbladder and borderline gallbladder wall thickening without pericholecystic fluid. Nonvisualization of the gallbladder on HIDA scan was suggestive of acute cholecystitis. Seen by General surgery who recommended, based on patient's overall status, consideration of cholecystostomy tube placement. Status post cholecystostomy tube placement 01/25/2025. Cholecystostomy drainage cultures positive for Gram-negative rods, to date. Blood cultures are negative. No known antibiotic allergies. Has been receiving Zosyn since admission (Day 8). Also received several days of levofloxacin. Fever resolved post admission. Continues to have low-grade leukocytosis. Recent procalcitonin 0.6 continues to require 3 L of oxygen while previously only requiring room air. Today's follow-up chest x-ray shows right basilar airspace disease which may represent atelectasis or pneumonia--no significant change. Also with subsegmental left basilar atelectasis. Review of Systems Review of Systems: Notes shortness of breath with exertion. [facility] Past Medical History Medical History Erectile dysfunction Mixed hyperlipidemia Vitamin D deficiency Positional vertigo Memory impairment Hypersomnolence Trigger finger Bilateral hand numbness Benign essential hypertension Psoriasis Stricture of esophagus Insomnia Kidney stone Hearing loss DJD (degenerative joint disease) GERD (gastroesophageal reflux disease) Pre-diabetes Surgical History Surgical History Status post total left knee replacement 08/02/2022 Hx of arthroscopic knee surgery Hx of detached retina repair Family History Family History Father Family history of congestive heart failure Family history of cardiovascular disease Family history of heart disease in male family member before age 55 Social History Social History (Updated 01/22/25 @ 02:28 by Madai Carrero, ) Social History: He has been since 2020. He lives by himself in [place]. 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 He is a lifetime nonsmoker. He drinks between 1-4 alcoholic beverages a month. He denies illicit substance use. Code status: Full code (patient would not want long-term ventilatory support) Surrogate decision makers: Shaunna (daughter) and son Smoking status: Never smoker Second hand tobacco smoke exposure: No Alcohol intake: current Drinks per week: 2 Alcohol use details: STATES 2-4 BEERS/WEEK Substance use: never Substance use type: does not use Lack of Transportation: No Lack of Food: Never True Current Housing: Decline to Answer Concerned About Future Housing: Decline to Answer Difficulty Paying Gas/Electric Bills: Decline to Answer Difficulty Paying for Meds: Decline to Answer Currently Unemployed: Decline to Answer Education: Decline to Answer Difficulty w/ Childcare or Family Care: Decline to Answer Living arrangements: alone Occupation/Education: retired Gender identity (if verbalized by the patient): Male Spiritual care concerns: No Agree to blood products: Yes Meds Home Medications and Allergies Home Medications ?Medication ?Instructions ?Recorded ?Confirmed ?Type Prevagen 10 mg BYMOUTH . daily 03/16/24 01/21/25 History omega-3 fatty acids-fish oil 360 1 cap PO DAILY 03/16/24 01/21/25 History mg-1,200 mg capsule (Fish Oil) pyridoxine (vitamin B6) 100 mg 100 mg PO DAILY 03/16/24 01/21/25 History tablet pravastatin 40 mg tablet See Rx Instructions .Route 07/24/24 01/21/25 Rx .COMPLEX #90 tabs ascorbic acid (vitamin C) 500 mg 500 mg PO DAILY 07/30/24 01/21/25 History capsule thiamine HCl (vitamin B1) 100 mg 100 mg PO DAILY 07/30/24 01/21/25 History capsule fluticasone propionate 50 2 spray intranasal BID #16 mL 11/28/24 01/21/25 Rx mcg/actuation nasal spray,suspension (Flonase Allergy Relief) meloxicam 15 mg tablet See Rx Instructions .Route 12/13/24 01/21/25 Rx .COMPLEX #30 tabs omeprazole 40 mg capsule,delayed See Rx Instructions .Route 12/13/24 01/21/25 Rx release .COMPLEX #180 caps valsartan 320 mg tablet 320 mg PO DAILY #90 tabs 12/13/24 01/21/25 Rx zolpidem 10 mg tablet 10 mg PO QHS #30 tabs 12/13/24 01/21/25 Rx donepezil 5 mg tablet 5 mg PO QHS #90 tabs 01/14/25 01/21/25 Rx Allergies Allergy/AdvReac Type Severity Reaction Status Date / Time No Known Allergies Allergy Verified 12/19/24 07:04 Vital Signs Vital Signs - 24 hr 01/27/25 12:00 01/27/25 13:57 01/27/25 14:24 Temperature Pulse Rate 79 Respiratory Rate Blood Pressure Pulse Oximetry 94 Oxygen Delivery Nasal Cannula Nasal Cannula Oxygen Flow Rate 3 3 Fraction of Inspired Oxygen 01/27/25 15:35 01/27/25 16:00 01/27/25 19:52 Temperature 97.3 F L Pulse Rate 73 67 74 Respiratory Rate 16 20 Blood Pressure 135/87 Pulse Oximetry 98 93 Oxygen Delivery Nasal Cannula Oxygen Flow Rate 3 Fraction of Inspired Oxygen 32 01/27/25 20:00 01/27/25 20:41 01/28/25 00:00 Temperature 98.2 F Pulse Rate 73 69 69 Respiratory Rate 18 Blood Pressure 152/82 H Pulse Oximetry 94 Oxygen Delivery Oxygen Flow Rate Fraction of Inspired Oxygen 01/28/25 04:00 01/28/25 04:34 01/28/25 08:20 Temperature 98.2 F Pulse Rate 81 88 Respiratory Rate 18 Blood Pressure 151/88 H Pulse Oximetry 93 91 Oxygen Delivery Nasal Cannula Oxygen Flow Rate 3 Fraction of Inspired Oxygen 01/28/25 08:21 01/28/25 08:26 01/28/25 08:26 Temperature 98.3 F Pulse Rate 90 80 80 Respiratory Rate 22 H 22 H Blood Pressure 158/103 H Pulse Oximetry 91 91 Oxygen Delivery Nasal Cannula Oxygen Flow Rate 3 Fraction of Inspired Oxygen 32 01/28/25 08:26 Temperature Pulse Rate 91 Respiratory Rate Blood Pressure Pulse Oximetry Oxygen Delivery Oxygen Flow Rate Fraction of Inspired Oxygen Exam Narrative: He is awake, alert, and interactive. No distress. Normocephalic. No conjunctivitis. Normal respirations. Abdomen not significantly distended. Right cholecystostomy catheter in place without surrounding visible inflammation. Some tenderness to insertion site palpation. Bilious serosanguineous fluid in the collecting system. No rash. Results Labs 01/28/25 04:22 01/28/25 04:22 Labs: Short CBC 01/28/25 Range/Units 04:22 WBC 13.6 H (4.5-10.0) K/mm3 Hgb 13.3 L (14.0-18.0) g/dL Hct 39.5 L (42.0-52.0) % Plt Count 273 (150-375) k/mm3 BMP 01/28/25 04:22 Sodium 134 L Potassium 2.9 L Chloride 104 Carbon Dioxide 24 BUN 32 H D Creatinine 1.74 H Glucose 132 H Calcium 7.6 L Liver Function 01/28/25 Range/Units 04:22 Total Bilirubin 1.8 H (0.2-1.3) mg/dL AST 62 H (17-59) U/L ALT 73 H (6-50) U/L Alkaline Phosphatase 90 (38-126) U/L Albumin 2.5 L (3.5-5.1) g/dL
--- NOTE | 2025-01-28 10:29 | PM.PNGS ---
Progress Note: A&P Assessment and Plan (1) Acute cholecystitis: Code(s): K81.0 - Acute cholecystitis Status: Acute Assessment and Plan: Improving with antibiotics and cholecystostomy tube placement (01/25). The cholecystostomy tube will be in place for at least a few weeks. He is stable from a surgical standpoint to discharge with the cholecystostomy tube and he can follow-up with Dr. Huang in 2 weeks. I spoke with the nurse today about educating the patient on cholecystostomy tube care prior to discharge. CC is working on either setting him up with HH vs possible discharge to [facility] for rehab. ID consulted today regarding recommendations on antibiotics. (2) Atrial fibrillation with rapid ventricular response: Code(s): I48.91 - Unspecified atrial fibrillation Status: Acute Assessment and Plan: Sinus rhythm as of last EKG 01/22/2025. Heart rate 80s to 90s. On therapeutic-dosed of Lovenox for anticoagulation, Hospitalist plans to transition to DOAC prior to discharge. Okay to start oral anticoagulation from a surgical standpoint. (3) Multifocal pneumonia: Code(s): J18.8 - Other pneumonia, unspecified organism Status: Acute Assessment and Plan: ID consulted for antibiotic recommendations (4) Acute renal failure due to rhabdomyolysis: Code(s): N17.9 - Acute kidney failure, unspecified; M62.82 - Rhabdomyolysis Status: Acute Assessment and Plan: Improving Plan I have discussed the patient's case and plan of care with Dr. Huang. Subjective Subjective Date/Time Seen: 01/28/25 10:29 Patient reports: afebrile (since 01/22) Interval history: Patient seen today on 3 liters O2 via NC. His oxygen requirements went up yesterday and he has remained on 3 liters this morning. He is slightly short of breath when talking, but denies any respiratory complaints. He denies any abdominal pain other than an occasional twinge of pain at the cholecystostomy tube when moving in bed. Cholecystostomy tube output was 180 cc in the past 24 hours. He lives at home alone and is unsure if he will need rehab or be discharging back home. PT recommending rehab and CC working on potential [facility] on discharge. Review of Systems Review of Systems: All systems reviewed & are unremarkable except as noted in HPI and below Exam Const: General: comfortable and no acute distress Orientation/consciousness: patient oriented x3 GI: Inspection: non-distended GI Palp: Yes Soft to palpation (fullness felt in the RUQ at the area of the gallbladder), Yes Tenderness to palpation present (GI) (mild tenderness in the RUQ), No Guarding due to palpation present (GI) and No Rebound tenderness present Auscultation: normal bowel sounds Other: Cholecystostomy tube with clear yellow drainage Objective Data Vital Signs Vital Signs: Vital Signs - 24 hr 01/27/25 12:00 01/27/25 13:57 01/27/25 14:24 Temperature Pulse Rate 79 Respiratory Rate Blood Pressure Pulse Oximetry 94 Oxygen Delivery Nasal Cannula Nasal Cannula Oxygen Flow Rate 3 3 Fraction of Inspired Oxygen 01/27/25 15:35 01/27/25 16:00 01/27/25 19:52 Temperature 97.3 F L Pulse Rate 73 67 74 Respiratory Rate 16 20 Blood Pressure 135/87 Pulse Oximetry 98 93 Oxygen Delivery Nasal Cannula Oxygen Flow Rate 3 Fraction of Inspired Oxygen 32 01/27/25 20:00 01/27/25 20:41 01/28/25 00:00 Temperature 98.2 F Pulse Rate 73 69 69 Respiratory Rate 18 Blood Pressure 152/82 H Pulse Oximetry 94 Oxygen Delivery Oxygen Flow Rate Fraction of Inspired Oxygen 01/28/25 04:00 01/28/25 04:34 01/28/25 08:20 Temperature 98.2 F Pulse Rate 81 88 Respiratory Rate 18 Blood Pressure 151/88 H Pulse Oximetry 93 91 Oxygen Delivery Nasal Cannula Oxygen Flow Rate 3 Fraction of Inspired Oxygen 01/28/25 08:21 01/28/25 08:26 01/28/25 08:26 Temperature 98.3 F Pulse Rate 90 80 80 Respiratory Rate 22 H 22 H Blood Pressure 158/103 H Pulse Oximetry 91 91 Oxygen Delivery Nasal Cannula Oxygen Flow Rate 3 Fraction of Inspired Oxygen 32 01/28/25 08:26 Temperature Pulse Rate 91 Respiratory Rate Blood Pressure Pulse Oximetry Oxygen Delivery Oxygen Flow Rate Fraction of Inspired Oxygen Intake/Output Intake/Output: Intake & Output 01/25/25 01/26/25 01/27/25 01/28/25 23:59 23:59 23:59 23:59 Intake Total 4350 2580 2970 890 Output Total 2665 2520 5060 2615 Balance 2844 56 -5329 -7989 Meds/Results Medications: Active Medications Generic Name Dose Route Start Last Admin Trade Name Freq PRN Reason Stop Dose Admin Acetaminophen 650 mg 01/21/25 02:19 01/21/25 09:30 Acetaminophen 325 Mg Tablet PO 650 mg Q4H PRN Administration Mild Pain (1-3) or Fever Enoxaparin Sodium 115 mg 01/24/25 13:25 01/28/25 08:27 Enoxaparin 120 Mg/0.8 Ml Syringe SUB-Q 115 mg Q12HR DREAD Administration Fish Oil 1 gm 01/21/25 09:00 01/28/25 08:26 [place] 3 Polyunsat Fatty Acids 1 Gm Cap PO 1 gm DAILY DREAD Administration Fluticasone Propionate 2 spray 01/23/25 21:00 01/28/25 08:28 Fluticasone Propionate 0.05% Na Spr 16 Gm Btl (*Bkc) NASAL 2 spray Q12HR DREAD Administration Guaifenesin 1,200 mg 01/25/25 21:00 01/28/25 08:26 Guaifenesin 12 Hr 600 Mg Tabcr PO 1,200 mg Q12HR DREAD Administration Piperacillin Sod/Tazobactam 50 mls @ 100 mls/hr 01/21/25 12:00 01/28/25 06:51 Sod 3.375 gm/ Sodium Chloride IVPB Infused Q6HR DREAD Infusion Sodium Chloride 1,000 mls @ 75 mls/hr 01/24/25 18:05 01/28/25 02:00 Normal Saline Iv IV CONT 75 mls/hr .[id number] DREAD Administration Metoprolol Succinate 25 mg 01/22/25 09:00 01/28/25 08:26 Metoprolol Succinate Ext Rel 25 Mg Tabcr PO 25 mg QAM DREAD Administration Morphine Sulfate 2 mg 01/25/25 09:42 01/25/25 23:41 Morphine Sulfate (*Crx) 2 Mg/Ml Inj IV PUSH 2 mg Q3H PRN Administration Pain Rated 7-10 Ondansetron HCl 4 mg 01/21/25 02:19 Ondansetron Inj 4 Mg/2 Ml Vial IV PUSH Q4H PRN Nausea Pantoprazole Sodium 40 mg 01/24/25 21:00 01/28/25 08:26 Pantoprazole Sodium Iv 40 Mg Vial IV PUSH 40 mg Q12HR DREAD Administration Radiology Results: ITS Impressions Chest/Abdomen/Pelvis CTA 01/21/25 08:52 Impression: Distended gallbladder with suspected mild pericholecystic inflammatory change, suspicious for acute cholecystitis. Correlate clinically. Consider ultrasound and/or HIDA scan for further evaluation as indicated. Mild bibasilar pulmonary edema/atelectasis. Upper Quadrant Ultrasound 01/21/25 12:09 IMPRESSION: Limited evaluation of the pancreas secondary to overlying bowel gas. Layering sludge within the distended gallbladder. Borderline gallbladder wall thickening without pericholecystic fluid. Trace surrounding inflammatory change on CT examination performed approximately 12 hours earlier with indeterminate findings on ultrasound examination. If clinical suspicion persists for acalculous cholecystitis, HIDA scan would provide additional information. Hepatobiliary Scan Nuclear Medicine 01/23/25 10:21 IMPRESSION: 1. Nonvisualization of the gallbladder and the 30 minutes following morphine administration consistent with acute cholecystitis. Chest CT 01/24/25 18:49 IMPRESSION: 1. Bilateral lower lobe airspace consolidation which may represent pneumonia and/or atelectasis. 2: Dilated gallbladder with wall thickening, pericystic cholecystic phlegmonous change and possible associated abscess involving the margin of the liver. Findings compatible with acute cholecystitis with sequela. 3: Small pleural effusions. 4: Nonobstructive left nephrolithiasis. Cholecystostomy 01/25/25 14:15 IMPRESSION: 1. Successful ultrasound-guided cholecystostomy tube placement. 2. 50 mL bile was sent for aerobic, anaerobic, and fungal cultures. 3. The catheter will be managed by Dr. Huang. A catheter cholangiogram may be performed not less than 48 hours after tube placement if clinically indicated to assess cystic duct patency. If cholecystectomy is not eventually performed and the infectious episode has resolved, the tube may be removed over a guidewire, preferably not less than 3 weeks after placement to allow time for a mature catheter tract to form to prevent bile leakage and peritonitis. Chest X-Ray 01/28/25 08:38 Impression: 1: Right basilar airspace disease may represent atelectasis or pneumonia. No significant change. 2: Subsegmental left basilar atelectasis. Labs Labs: Laboratory Results - last 24 hr 01/28/25 04:22 WBC 13.6 H RBC 4.26 L Hgb 13.3 L Hct 39.5 L MCV 92.7 MCH 31.2 MCHC 33.7 RDW 14.3 Plt Count 273 MPV 9.7 Immature Gran % (Auto) 9.1 H Neut % (Auto) 72.4 Lymph % (Auto) 9.9 L [place] % (Auto) 7.2 Eos % (Auto) 1.1 Baso % (Auto) 0.3 Lymph # (Auto) 1.35 [place] # (Auto) 1.0 H Eos # (Auto) 0.2 Baso # (Auto) 0.0 Abs Immat Gran (auto) 1.24 H Absolute Neuts (auto) 9.8 H Absolute Nucleated RBC 0.000 Nucleated RBC % 0.0 Sodium 134 L Potassium 2.9 L Chloride 104 Carbon Dioxide 24 Anion Gap 6 BUN 32 H D Creatinine 1.74 H Estim Creat Clear Calc 46 Estimated GFR 38 L Glucose 132 H Calcium 7.6 L Total Bilirubin 1.8 H AST 62 H ALT 73 H Alkaline Phosphatase 90 NT-Pro-B Natriuret Pep 2200 H Total Protein 5.5 L Albumin 2.5 L
--- NOTE | 2025-01-28 11:48 | PCNWS ---
Weekly nutritional screen. Patient is tolerating current Low fat diet with adequate intake, 50-100%. Pt states He doesn't eat lunch so lunch intakes are lower. No weight loss reported. No nutritional needs at this time.
[2025-01-28] MEDS: POTASSIUM CHLORIDE 20 MEQ PACKET (FOR LIQUID) 40 MEQ PO (12:04)
[2025-01-28] MEDS: KCL 20 MEQ/SW 100 ML 100 ML 50 MEQ IVPB (14:23)
[2025-01-28] MEDS: MEROPENEM 1 GM in SODIUM CHLORIDE 0.9% IV 100 ML 200 ML IVPB (16:16)
[2025-01-28] MEDS: APIXABAN 5 MG TABLET PO (20:19)
[2025-01-29] VITALS (15 sets, daily range): BP systolic 136–147; BP diastolic 82–90; PULSE 71–92; RESP 18–20; TEMP 36.3–36.5; O2SAT 92–97
[2025-01-29] MEDS: MEROPENEM 1 GM in SODIUM CHLORIDE 0.9% IV 100 ML 200 ML IVPB (03:29)
[2025-01-29] MEDS: SODIUM CHLORIDE 0.9% IV 1,000 ML 75 ML IV CONT (03:32)
[2025-01-29 04:55] LABS: Hematocrit 41.6 % (42.0-52.0); Hemoglobin 13.6 g/dL (14.0-18.0); Mean Corpuscular HGB Conc 32.7 g/dl (32-36); Mean Corpuscular Hemoglobin 31.1 pg (26-34); Mean Corpuscular Volume 95.0 fl (80-100); Platelet Count Result 269 k/mm3 (150-375); Red Blood Count 4.38 M/mm3 (4.6-6.20); White Blood Count 15.9 K/mm3 (4.5-10.0)
[2025-01-29 05:30] LABS: Band Neutrophils Percent 3 % (0-6); Lymphocytes Absolute Manual 1.59 K/mm3 (1.1-4.5); Lymphocytes Percent Manual 10.0 % (18-44); Monocytes Absolute Manual 0.15 K/mm3 (0.1-0.90); Monocytes Percent Manual 1 % (3-9); Neutrophils Absolute Manual 14.15 K/mm3 (1.3-6.7); Neutrophils Percent Manual 86 % (46-73); Total Cells Counted 100
[2025-01-29 05:31] LABS: Schistocytes None Seen
[2025-01-29 05:34] LABS: Alanine Aminotransferase 65 U/L (6-50); Albumin Level 2.6 g/dL (3.5-5.1); Alkaline Phosphatase 86 U/L (38-126); Anion Gap 8 mmol/L (4-12); Aspartate Amino Transferase 48 U/L (17-59); Bilirubin,Total 1.5 mg/dL (0.2-1.3); Blood Urea Nitrogen 27 mg/dL (9-20); Calcium 7.6 mg/dL (8.4-10.2); Carbon Dioxide 22 mmol/L (22-30); Chloride 105 mmol/L (98-107); Estimated CRCL calculation 50 ml/min; Estimated Glomerular Filt Rate 43; Glucose 119 mg/dL (65-110); Magnesium 1.7 mg/dL (1.6-2.3); Potassium 3.2 mmol/L (3.4-5.0); Sodium 135 mmol/L (137-145); Total Protein 5.8 g/dL (6.3-8.2)
[2025-01-29] MEDS: FLUTICASONE PROPIONATE 0.05% NA SPR 16 GM BTL (*BKC) 2 SPRAY NASAL ×2 (08:01→19:44)
[2025-01-29] MEDS: PANTOPRAZOLE SODIUM IV 40 MG VIAL IV PUSH ×2 (08:02→19:44)
[2025-01-29] MEDS: guaiFENesin 12 HR 600 MG TABCR 1200 MG PO ×2 (08:02→19:44)
[2025-01-29] MEDS: APIXABAN 5 MG TABLET PO ×2 (08:02→19:44)
[2025-01-29] MEDS: METOPROLOL SUCCINATE EXT REL 25 MG TABCR PO (08:02)
[2025-01-29] MEDS: OMEGA 3 POLYUNSAT FATTY ACIDS 1 GM CAP PO (08:02)
--- NOTE | 2025-01-29 08:56 | P.PNINF_ITS ---
Progress Note: A&P Assessment and Plan (1) Acute cholecystitis: Code(s): K81.0 - Acute cholecystitis Status: Acute (2) History of percutaneous insertion of cholecystostomy tube: Code(s): Z98.890 - Other specified postprocedural states Status: Acute (3) Multifocal pneumonia: Code(s): J18.8 - Other pneumonia, unspecified organism Status: Acute (4) Rhabdomyolysis: Code(s): M62.82 - Rhabdomyolysis Status: Acute (5) Transaminitis: Status: Acute (6) Hyperbilirubinemia: Code(s): E80.6 - Other disorders of bilirubin metabolism Status: Acute (7) Acute renal failure due to rhabdomyolysis: Code(s): N17.9 - Acute kidney failure, unspecified; M62.82 - Rhabdomyolysis Status: Acute (8) Atrial fibrillation with rapid ventricular response: Code(s): I48.91 - Unspecified atrial fibrillation Status: Acute (9) Hypoxemia: Code(s): R09.02 - Hypoxemia Status: Acute Plan # Acute cholecystitis status post cholecystostomy tube placement. -- drainage cultures positive for pansensitive E coli in the anaerobic specimen. anaerobic culture remains pending -- transaminases and bilirubin improving. -- day 9 of antibiotics. Previously on Zosyn with change to meropenem yesterday given increasing WBC and pending drain fluid GNR identification. # Possible basilar pneumonia. -- not definitive based on radiographic studies. May represent basilar atelectasis. -- noted to have hypoxemia which has improved but not resolved to baseline. May be a manifestation of residual sepsis. -- has completed an empiric course of antibiotics. # Acute rhabdomyolysis with WEI after being found down at home. # Residual low-grade leukocytosis. # Residual hypoxemia, albeit improved. Plan: -- has essentially completed a course of empiric Zosyn for suspected pneumonia and should only require an additional limited course of continued antibiotics post cholecystostomy tube drainage. Consequently, direct planned discharge antibiotics toward completion of treatment for acute cholecystitis post cholecystostomy tube drainage. -- bile drainage culture positive for pansensitive E coli. Okay to change IV antibiotics to Unasyn for now while watching progress of leukocytosis. -- repeat white blood cell count in the a.m.. If this continues to worsen would recommend CT of abdomen to evaluate cholecystostomy tube drainage site. However, drain appears to be functioning without complication at this time. -- with continued clinical improvement and, ideally, improvement in white blood cell count will eventually transition to oral Augmentin 875 mg q.12 hours x7 more days. -- continue to monitor O2 saturation with ongoing diuresis. -- further recommendations to follow. Patient was seen via video telehealth consultation with the assistance of staff. Chart, data, and patient independently reviewed. Patient was located at [facility] while I was located in my [place] office. Received verbal consent from patient. Subjective Date/time seen: 01/29/25 08:56 Interval history: 01/29/2025: Afebrile although white blood cell count increased today to 15.9. no evidence of cholecystostomy tube issues. Overall, patient feels better. Cholecystostomy tube fluid culture 01/25: Pansensitive E coli. Review of Systems Review of Systems: denies cholecystostomy tube site pain. All systems reviewed & are unremarkable except as noted in HPI and below Exam Narrative: He is awake, alert, and interactive. No distress. Friend is visiting. Normocephalic. No conjunctivitis. Normal respirations. Abdomen not significantly distended. Right cholecystostomy catheter in place without surrounding visible inflammation. No significant tenderness to insertion site palpation. Bilious serosanguineous fluid in the collecting system. Output appears to be unimpeded. No diarrhea. No rash. Objective Data Vital Signs Vital Signs: Vital Signs - 24 hr 01/28/25 12:00 01/28/25 13:27 01/28/25 16:00 Temperature 97.5 F L Pulse Rate 81 81 76 Respiratory Rate 18 Blood Pressure 152/91 H Pulse Oximetry 94 Oxygen Delivery Oxygen Flow Rate 01/28/25 16:00 01/28/25 20:00 01/28/25 20:20 Temperature 97.4 F L Pulse Rate 75 101 H Respiratory Rate 18 Blood Pressure 152/80 H Pulse Oximetry 96 96 Oxygen Delivery Nasal Cannula Oxygen Flow Rate 3 01/29/25 00:00 01/29/25 00:00 01/29/25 04:00 Temperature 97.6 F Pulse Rate 82 82 90 Respiratory Rate 18 Blood Pressure 147/90 H Pulse Oximetry 96 Oxygen Delivery Oxygen Flow Rate 01/29/25 08:02 01/29/25 08:08 Temperature Pulse Rate 90 91 Respiratory Rate 20 Blood Pressure Pulse Oximetry 93 Oxygen Delivery Nasal Cannula Oxygen Flow Rate 2 Intake/Output Intake/Output: Intake & Output 01/26/25 01/27/25 01/28/25 01/29/25 23:59 23:59 23:59 23:59 Intake Total 2580 2970 2730 602.5 Output Total 2520 5060 4679 1600 Balance 60 -2090 -1895 -997.5 Meds/Results Medications: Active Medications Generic Name Dose Route Start Last Admin Trade Name Freq PRN Reason Stop Dose Admin Acetaminophen 650 mg 01/21/25 02:19 01/21/25 09:30 Acetaminophen 325 Mg Tablet PO 650 mg Q4H PRN Administration Mild Pain (1-3) or Fever Apixaban 5 mg 01/28/25 21:00 01/29/25 08:02 Apixaban 5 Mg Tablet PO 5 mg Q12HR DREAD Administration Fish Oil 1 gm 01/21/25 09:00 01/29/25 08:02 [place] 3 Polyunsat Fatty Acids 1 Gm Cap PO 1 gm DAILY DREAD Administration Fluticasone Propionate 2 spray 01/23/25 21:00 01/29/25 08:01 Fluticasone Propionate 0.05% Na Spr 16 Gm Btl (*Bkc) NASAL 2 spray Q12HR DREAD Administration Guaifenesin 1,200 mg 01/25/25 21:00 01/29/25 08:02 Guaifenesin 12 Hr 600 Mg Tabcr PO 1,200 mg Q12HR DREAD Administration Sodium Chloride 1,000 mls @ 75 mls/hr 01/24/25 18:05 01/29/25 03:32 Normal Saline Iv IV CONT 75 mls/hr .[id number] DREAD Administration Meropenem 1 gm/ Sodium 100 mls @ 200 mls/hr 01/28/25 16:00 01/29/25 03:29 Chloride IVPB 200 mls/hr Q12H DREAD Administration Metoprolol Succinate 25 mg 01/22/25 09:00 01/29/25 08:02 Metoprolol Succinate Ext Rel 25 Mg Tabcr PO 25 mg QAM DREAD Administration Morphine Sulfate 2 mg 01/25/25 09:42 01/25/25 23:41 Morphine Sulfate (*Crx) 2 Mg/Ml Inj IV PUSH 2 mg Q3H PRN Administration Pain Rated 7-10 Ondansetron HCl 4 mg 01/21/25 02:19 Ondansetron Inj 4 Mg/2 Ml Vial IV PUSH Q4H PRN Nausea Pantoprazole Sodium 40 mg 01/24/25 21:00 01/29/25 08:02 Pantoprazole Sodium Iv 40 Mg Vial IV PUSH 40 mg Q12HR DREAD Administration Radiology Results: ITS Impressions Chest/Abdomen/Pelvis CTA 01/21/25 08:52 Impression: Distended gallbladder with suspected mild pericholecystic inflammatory change, suspicious for acute cholecystitis. Correlate clinically. Consider ultrasound and/or HIDA scan for further evaluation as indicated. Mild bibasilar pulmonary edema/atelectasis. Upper Quadrant Ultrasound 01/21/25 12:09 IMPRESSION: Limited evaluation of the pancreas secondary to overlying bowel gas. Layering sludge within the distended gallbladder. Borderline gallbladder wall thickening without pericholecystic fluid. Trace surrounding inflammatory change on CT examination performed approximately 12 hours earlier with indeterminate findings on ultrasound examination. If clinical suspicion persists for acalculous cholecystitis, HIDA scan would provide additional information. Hepatobiliary Scan Nuclear Medicine 01/23/25 10:21 IMPRESSION: 1. Nonvisualization of the gallbladder and the 30 minutes following morphine administration consistent with acute cholecystitis. Chest CT 01/24/25 18:49 IMPRESSION: 1. Bilateral lower lobe airspace consolidation which may represent pneumonia and/or atelectasis. 2: Dilated gallbladder with wall thickening, pericystic cholecystic phlegmonous change and possible associated abscess involving the margin of the liver. Findings compatible with acute cholecystitis with sequela. 3: Small pleural effusions. 4: Nonobstructive left nephrolithiasis. Cholecystostomy 01/25/25 14:15 IMPRESSION: 1. Successful ultrasound-guided cholecystostomy tube placement. 2. 50 mL bile was sent for aerobic, anaerobic, and fungal cultures. 3. The catheter will be managed by Dr. Huang. A catheter cholangiogram may be performed not less than 48 hours after tube placement if clinically indicated to assess cystic duct patency. If cholecystectomy is not eventually performed and the infectious episode has resolved, the tube may be removed over a guidewire, preferably not less than 3 weeks after placement to allow time for a mature catheter tract to form to prevent bile leakage and peritonitis. Chest X-Ray 01/28/25 08:38 Impression: 1: Right basilar airspace disease may represent atelectasis or pneumonia. No significant change. 2: Subsegmental left basilar atelectasis. Labs Labs: Laboratory Results - last 24 hr 01/26/25 01/28/25 01/29/25 04:28 04:22 04:23 WBC 15.9 H RBC 4.38 L Hgb 13.6 L Hct 41.6 L MCV 95.0 MCH 31.1 MCHC 32.7 RDW 14.4 Plt Count 269 MPV 9.5 Immature Gran % (Auto) Not Reportable Neut % (Auto) Not Reportable Lymph % (Auto) Not Reportable [place] % (Auto) Not Reportable Eos % (Auto) Not Reportable Baso % (Auto) Not Reportable Lymph # (Auto) Not Reportable [place] # (Auto) Not Reportable Eos # (Auto) Not Reportable Baso # (Auto) Not Reportable Abs Immat Gran (auto) Not Reportable Absolute Neuts (auto) Not Reportable Absolute Nucleated RBC Not Reportable Total Counted 100 Neutrophils % (Manual) 86 H Band Neutrophils % 3 Lymphocytes % (Manual) 10.0 L Monocytes % (Manual) 1 L Nucleated RBC % Not Reportable Abs Neuts (Manual) 14.15 H Abs Lymphs (Manual) 1.59 Abs Monocytes (Manual) 0.15 Platelet Estimate Adequate Schistocytes None seen Sodium 135 L Potassium 3.2 L Chloride 105 Carbon Dioxide 22 Anion Gap 8 BUN 27 H Creatinine 1.59 H Estim Creat Clear Calc 50 Estimated GFR 43 L Glucose 119 H Calcium 7.6 L Magnesium 1.7 Total Bilirubin 1.5 H AST 48 ALT 65 H Alkaline Phosphatase 86 NT-Pro-B Natriuret Pep 2200 H Total Protein 5.8 L Albumin 2.6 L M.pneumoniae IgM Titer <770
[2025-01-29] MEDS: POTASSIUM CHLORIDE 20 MEQ PACKET (FOR LIQUID) 40 MEQ PO (10:26)
--- NOTE | 2025-01-29 10:48 | P.PNIM_ITS ---
Progress Note: A&P Assessment and Plan (1) Severe sepsis: Code(s): A41.9 - Sepsis, unspecified organism; R65.20 - Severe sepsis without septic shock Status: Acute (2) Multifocal pneumonia: Code(s): J18.8 - Other pneumonia, unspecified organism Status: Acute (3) Colitis: Code(s): K52.9 - Noninfective gastroenteritis and colitis, unspecified Status: Acute (4) Acute renal failure due to rhabdomyolysis: Code(s): N17.9 - Acute kidney failure, unspecified; M62.82 - Rhabdomyolysis Status: Acute (5) Transaminitis: Status: Acute (6) Acute dehydration: Code(s): E86.0 - Dehydration Status: Acute (7) Atrial fibrillation with rapid ventricular response: Code(s): I48.91 - Unspecified atrial fibrillation Status: Acute (8) GERD (gastroesophageal reflux disease): Qualifiers: Esophagitis presence: esophagitis presence not specified Qualified Code(s): K21.9 - Gastro-esophageal reflux disease without esophagitis Code(s): K21.9 - Gastro-esophageal reflux disease without esophagitis Status: Acute (9) Elevated troponin: Code(s): R79.89 - Other specified abnormal findings of blood chemistry Status: Acute (10) Memory impairment: Code(s): R41.3 - Other amnesia Status: Acute Plan Assessment and Plan (1) Severe sepsis: vital signs sable and within normal limits From Cholecystitis Now on Meropenem per ID, s/p Zosyn Blood culture and urine culture pending Gallbladder culture showed pansensitive E coli Monitor vitals (2) Multifocal pneumonia: CT chest reviewed S/p Levaquin, vanc discontinued as MRSA is negative Continue Zosyn Monitor sputum Same as above (3) Colitis: Now on Meropenem (4) Acute renal failure due to rhabdomyolysis: Due to fall Continue IV hydration Echocardiogram pending Cr 1.59 from 2.04 Monitor I and O (5) Transaminitis, improving Improving, being managed for cholecystitis Monitor LFTs (6) Acute dehydration: Continue IV fluids (7) Atrial fibrillation with rapid ventricular response: Started on amiodarone On metoprolol 25 mg p.o. q.d. and Eliquis ECHO reviewed (8) GERD (gastroesophageal reflux disease): K21.9 - Gastro-esophageal reflux disease without esophagitis (9) Elevated troponin: Possibly due to rhabdomyolysis ECHO 50-55%, no regional wall motion abnormalities Cardiology noted no further intervention if no regional wall motion abnormalities Cardiology on board (10) Memory impairment: Code(s): R41.3 - Other amnesia Status: Acute E coli Acute cholecystitis HIDA scan showed acute cholecystitis Gall bladder culture grew pansensitive E coli GI evaluated and no concern for CBD obstruction that will require ERCP S/p Per Cholecystostomy , draining dark sludge ID started on Meropenem, s/p Zosyn Leukocytosis still persistent, monitor on Meropenem Gen surgery okay with the discharge with Cholecystostomy tube ID following Stool brown and Hb stable and GI bleed ruled out Gi evaluated and recommended to monitor for now monitor Acute hypoxemic respiratory failure Patient on room air at baseline now on 3L down from 5L CT chest reviewed and continue abx as above Discussed with Pulmonology this morning, and he recommended Home oxygen eval monitor Plan Code status: Full code DVT prophylaxis: On Eliquis Subjective Date/time seen: 01/29/25 10:48 Interval history: Comfortable at bedside Awaiting gallbladder cultures Review of Systems Review of Systems: Review of systems limited due to the patient's clinical condition and chronic hearing loss. Exam Narrative: Weight 115.8 kg BMI 31.1 Const: Other: Acutely ill-appearing, appears stated age, well-developed well-nourished HENMT: Other: Mucous membranes are dry, no oral pharyngeal erythema, head is normocephalic atraumatic Eyes: Other: Pupils are equal and reactive, mild scleral icterus, no conjunctival pallor, extraocular movements intact Neck: Other: No JVD, no lymphadenopathy Resp: Other: Marked tachypnea with respiratory rate in the mid 30s, accessory muscle use with abdominal respirations Cardio: Other: Irregularly irregular, tachycardic, 2+ bilateral radial pedal pulses, no JVD GI: Other: Markedly tender in the right upper quadrant area, abdomen was sent initially distended but on repeat evaluation after Armenta catheter lower abdomen is much softer, normoactive bowel sounds, no tympany : Other: Armenta catheter was placed was at bedside patient had turbid coke colored urine about 250 mL Skin: Other: Hot to touch, jaundice, 3-4 second cap refill Neuro: Other: Alert oriented to person, place and month confused as to the year thought the year was 2021 speech is clear, chronic hearing loss, no gross motor deficits noted on exam no facial asymmetry Extrem: Other: No clubbing, cyanosis or edema, moves all extremities equally, 5/5 mid level project manager strength bilateral Psych: Other: Appropriately anxious, otherwise pleasant and cooperative Objective Data Vital Signs Vital Signs: Vital Signs - 24 hr 01/28/25 12:00 01/28/25 13:27 01/28/25 16:00 Temperature 97.5 F L Pulse Rate 81 81 76 Respiratory Rate 18 Blood Pressure 152/91 H Pulse Oximetry 94 Oxygen Delivery Oxygen Flow Rate Fraction of Inspired Oxygen 01/28/25 16:00 01/28/25 20:00 01/28/25 20:20 Temperature 97.4 F L Pulse Rate 75 101 H Respiratory Rate 18 Blood Pressure 152/80 H Pulse Oximetry 96 96 Oxygen Delivery Nasal Cannula Oxygen Flow Rate 3 Fraction of Inspired Oxygen 01/29/25 00:00 01/29/25 00:00 01/29/25 04:00 Temperature 97.6 F Pulse Rate 82 82 90 Respiratory Rate 18 Blood Pressure 147/90 H Pulse Oximetry 96 Oxygen Delivery Oxygen Flow Rate Fraction of Inspired Oxygen 01/29/25 08:01 01/29/25 08:01 01/29/25 08:02 Temperature Pulse Rate 91 92 90 Respiratory Rate 20 Blood Pressure Pulse Oximetry 93 Oxygen Delivery Nasal Cannula Oxygen Flow Rate 3 Fraction of Inspired Oxygen 32 01/29/25 08:08 Temperature Pulse Rate 91 Respiratory Rate 20 Blood Pressure Pulse Oximetry 93 Oxygen Delivery Nasal Cannula Oxygen Flow Rate 2 Fraction of Inspired Oxygen Intake/Output Intake/Output: Intake & Output 01/26/25 01/27/25 01/28/25 01/29/25 23:59 23:59 23:59 23:59 Intake Total 2580 2970 2730 842.5 Output Total 2520 5060 4625 1600 Balance 60 -0958 -1895 -757.5 Meds/Results Medications: Active Medications Generic Name Dose Route Start Last Admin Trade Name Freq PRN Reason Stop Dose Admin Acetaminophen 650 mg 01/21/25 02:19 01/21/25 09:30 Acetaminophen 325 Mg Tablet PO 650 mg Q4H PRN Administration Mild Pain (1-3) or Fever Apixaban 5 mg 01/28/25 21:00 01/29/25 08:02 Apixaban 5 Mg Tablet PO 5 mg Q12HR DREAD Administration Fish Oil 1 gm 01/21/25 09:00 01/29/25 08:02 [place] 3 Polyunsat Fatty Acids 1 Gm Cap PO 1 gm DAILY DREAD Administration Fluticasone Propionate 2 spray 01/23/25 21:00 01/29/25 08:01 Fluticasone Propionate 0.05% Na Spr 16 Gm Btl (*Bkc) NASAL 2 spray Q12HR DREAD Administration Guaifenesin 1,200 mg 01/25/25 21:00 01/29/25 08:02 Guaifenesin 12 Hr 600 Mg Tabcr PO 1,200 mg Q12HR DREAD Administration Meropenem 1 gm/ Sodium 100 mls @ 200 mls/hr 01/28/25 16:00 01/29/25 03:29 Chloride IVPB 200 mls/hr Q12H DREAD Administration Metoprolol Succinate 25 mg 01/22/25 09:00 01/29/25 08:02 Metoprolol Succinate Ext Rel 25 Mg Tabcr PO 25 mg QAM DREAD Administration Morphine Sulfate 2 mg 01/25/25 09:42 01/25/25 23:41 Morphine Sulfate (*Crx) 2 Mg/Ml Inj IV PUSH 2 mg Q3H PRN Administration Pain Rated 7-10 Ondansetron HCl 4 mg 01/21/25 02:19 Ondansetron Inj 4 Mg/2 Ml Vial IV PUSH Q4H PRN Nausea Pantoprazole Sodium 40 mg 01/24/25 21:00 01/29/25 08:02 Pantoprazole Sodium Iv 40 Mg Vial IV PUSH 40 mg Q12HR DREAD Administration Zolpidem Tartrate 2.5 mg 01/29/25 10:15 Zolpidem Tartrate (*Crx) 2.5 Mg Tablet PO HS PRN Insomnia Radiology Results: ITS Impressions Chest/Abdomen/Pelvis CTA 01/21/25 08:52 Impression: Distended gallbladder with suspected mild pericholecystic inflammatory change, suspicious for acute cholecystitis. Correlate clinically. Consider ultrasound and/or HIDA scan for further evaluation as indicated. Mild bibasilar pulmonary edema/atelectasis. Upper Quadrant Ultrasound 01/21/25 12:09 IMPRESSION: Limited evaluation of the pancreas secondary to overlying bowel gas. Layering sludge within the distended gallbladder. Borderline gallbladder wall thickening without pericholecystic fluid. Trace surrounding inflammatory change on CT examination performed approximately 12 hours earlier with indeterminate findings on ultrasound examination. If clinical suspicion persists for acalculous cholecystitis, HIDA scan would provide additional information. Hepatobiliary Scan Nuclear Medicine 01/23/25 10:21 IMPRESSION: 1. Nonvisualization of the gallbladder and the 30 minutes following morphine administration consistent with acute cholecystitis. Chest CT 01/24/25 18:49 IMPRESSION: 1. Bilateral lower lobe airspace consolidation which may represent pneumonia and/or atelectasis. 2: Dilated gallbladder with wall thickening, pericystic cholecystic phlegmonous change and possible associated abscess involving the margin of the liver. Findings compatible with acute cholecystitis with sequela. 3: Small pleural effusions. 4: Nonobstructive left nephrolithiasis. Cholecystostomy 01/25/25 14:15 IMPRESSION: 1. Successful ultrasound-guided cholecystostomy tube placement. 2. 50 mL bile was sent for aerobic, anaerobic, and fungal cultures. 3. The catheter will be managed by Dr. Huang. A catheter cholangiogram may be performed not less than 48 hours after tube placement if clinically indicated to assess cystic duct patency. If cholecystectomy is not eventually performed and the infectious episode has resolved, the tube may be removed over a guidewire, preferably not less than 3 weeks after placement to allow time for a mature catheter tract to form to prevent bile leakage and peritonitis. Chest X-Ray 01/28/25 08:38 Impression: 1: Right basilar airspace disease may represent atelectasis or pneumonia. No significant change. 2: Subsegmental left basilar atelectasis. Labs Labs: Laboratory Results - last 24 hr 01/26/25 01/29/25 04:28 04:23 WBC 15.9 H RBC 4.38 L Hgb 13.6 L Hct 41.6 L MCV 95.0 MCH 31.1 MCHC 32.7 RDW 14.4 Plt Count 269 MPV 9.5 Immature Gran % (Auto) Not Reportable Neut % (Auto) Not Reportable Lymph % (Auto) Not Reportable [place] % (Auto) Not Reportable Eos % (Auto) Not Reportable Baso % (Auto) Not Reportable Lymph # (Auto) Not Reportable [place] # (Auto) Not Reportable Eos # (Auto) Not Reportable Baso # (Auto) Not Reportable Abs Immat Gran (auto) Not Reportable Absolute Neuts (auto) Not Reportable Absolute Nucleated RBC Not Reportable Total Counted 100 Neutrophils % (Manual) 86 H Band Neutrophils % 3 Lymphocytes % (Manual) 10.0 L Monocytes % (Manual) 1 L Nucleated RBC % Not Reportable Abs Neuts (Manual) 14.15 H Abs Lymphs (Manual) 1.59 Abs Monocytes (Manual) 0.15 Platelet Estimate Adequate Schistocytes None seen Sodium 135 L Potassium 3.2 L Chloride 105 Carbon Dioxide 22 Anion Gap 8 BUN 27 H Creatinine 1.59 H Estim Creat Clear Calc 50 Estimated GFR 43 L Glucose 119 H Calcium 7.6 L Magnesium 1.7 Total Bilirubin 1.5 H AST 48 ALT 65 H Alkaline Phosphatase 86 Total Protein 5.8 L Albumin 2.6 L M.pneumoniae IgM Titer <770 Quality VTE Prophylaxis VTE prophylaxis: pharmacologic ordered (Heparin GGT per protocol)
[2025-01-29] MEDS: AMPICILLIN SODIUM/SULBACTAM 3 GM in SODIUM CHLORIDE 0.9% IV 100 ML 200 ML IVPB ×3 (13:21→23:08)
[2025-01-29] MEDS: ZOLPIDEM TARTRATE (*CRX) 2.5 MG TABLET PO (21:14)
[2025-01-30] VITALS (13 sets, daily range): BP systolic 148–170; BP diastolic 85–90; PULSE 77–98; RESP 16–22; TEMP 36.4–36.6; O2SAT 93–97
[2025-01-30 05:02] LABS: Hematocrit 38.9 % (42.0-52.0); Hemoglobin 13.0 g/dL (14.0-18.0); Immature Granulocyte Percent A 5.6 % (0-0.5); Lymphocytes Absolute Auto 1.50 K/mm3 (0.9-3.2); Mean Corpuscular HGB Conc 33.4 g/dl (32-36); Mean Corpuscular Hemoglobin 31.0 pg (26-34); Mean Corpuscular Volume 92.8 fl (80-100); Nucleated Red Blood Cells Absolute Auto 0.000 K/mm3 (0.0-0.012); Nucleated Red Blood Cells Perc 0.0 % (0.0-0.2); Platelet Count Result 296 k/mm3 (150-375); Red Blood Count 4.19 M/mm3 (4.6-6.20); White Blood Count 16.8 K/mm3 (4.5-10.0)
[2025-01-30 05:27] LABS: Alanine Aminotransferase 56 U/L (6-50); Albumin Level 2.5 g/dL (3.5-5.1); Alkaline Phosphatase 85 U/L (38-126); Anion Gap 5 mmol/L (4-12); Aspartate Amino Transferase 54 U/L (17-59); Bilirubin,Total 1.4 mg/dL (0.2-1.3); Blood Urea Nitrogen 26 mg/dL (9-20); Calcium 7.5 mg/dL (8.4-10.2); Carbon Dioxide 26 mmol/L (22-30); Chloride 102 mmol/L (98-107); Estimated CRCL calculation 48 ml/min; Estimated Glomerular Filt Rate 41; Glucose 115 mg/dL (65-110); Magnesium 1.7 mg/dL (1.6-2.3); Potassium 3.2 mmol/L (3.4-5.0); Sodium 133 mmol/L (137-145); Total Protein 5.6 g/dL (6.3-8.2)
[2025-01-30] MEDS: AMPICILLIN SODIUM/SULBACTAM 3 GM in SODIUM CHLORIDE 0.9% IV 100 ML 200 ML IVPB ×4 (05:44→23:17)
--- NOTE | 2025-01-30 07:40 | P.PNIM_ITS ---
Progress Note: A&P Assessment and Plan (1) Severe sepsis: Code(s): A41.9 - Sepsis, unspecified organism; R65.20 - Severe sepsis without septic shock Status: Acute (2) Multifocal pneumonia: Code(s): J18.8 - Other pneumonia, unspecified organism Status: Acute (3) Colitis: Code(s): K52.9 - Noninfective gastroenteritis and colitis, unspecified Status: Acute (4) Acute renal failure due to rhabdomyolysis: Code(s): N17.9 - Acute kidney failure, unspecified; M62.82 - Rhabdomyolysis Status: Acute (5) Transaminitis: Status: Acute (6) Acute dehydration: Code(s): E86.0 - Dehydration Status: Acute (7) Atrial fibrillation with rapid ventricular response: Code(s): I48.91 - Unspecified atrial fibrillation Status: Acute (8) GERD (gastroesophageal reflux disease): Qualifiers: Esophagitis presence: esophagitis presence not specified Qualified Code(s): K21.9 - Gastro-esophageal reflux disease without esophagitis Code(s): K21.9 - Gastro-esophageal reflux disease without esophagitis Status: Acute (9) Elevated troponin: Code(s): R79.89 - Other specified abnormal findings of blood chemistry Status: Acute (10) Memory impairment: Code(s): R41.3 - Other amnesia Status: Acute Plan Assessment and Plan (1) Severe sepsis: vital signs sable and within normal limits From Cholecystitis Status post meropenem and Zosyn Currently on Unasyn Blood culture and urine culture pending Gallbladder culture showed pansensitive E coli Monitor vitals Repeat CT abdomen due to concern of abscess on CT chest performed on 01/24 (2) Multifocal pneumonia: CT chest reviewed S/p Levaquin, vanc discontinued as MRSA is negative Started Unasyn Monitor sputum Same as above (3) Colitis: Now on Unasyn (4) Acute renal failure due to rhabdomyolysis: Due to fall Continue IV hydration Echocardiogram pending Cr 1.59 from 2.04 Monitor I and O (5) Transaminitis, improving Improving, being managed for cholecystitis Monitor LFTs (6) Acute dehydration: Continue IV fluids (7) Atrial fibrillation with rapid ventricular response: Started on amiodarone On metoprolol 25 mg p.o. q.d. and Eliquis ECHO reviewed (8) GERD (gastroesophageal reflux disease): K21.9 - Gastro-esophageal reflux disease without esophagitis (9) Elevated troponin: Possibly due to rhabdomyolysis ECHO 50-55%, no regional wall motion abnormalities Cardiology noted no further intervention if no regional wall motion abnormalities Cardiology on board (10) Memory impairment: Code(s): R41.3 - Other amnesia Status: Acute E coli Acute cholecystitis HIDA scan showed acute cholecystitis Gall bladder culture grew pansensitive E coli GI evaluated and no concern for CBD obstruction that will require ERCP S/p Per Cholecystostomy , draining dark sludge ID started on Meropenem, s/p Zosyn Leukocytosis still persistent, monitor on Meropenem Gen surgery okay with the discharge with Cholecystostomy tube ID following Stool brown and Hb stable and GI bleed ruled out Gi evaluated and recommended to monitor for now monitor Acute hypoxemic respiratory failure Patient on room air at baseline now on 3L down from 5L CT chest reviewed and continue abx as above Discussed with Pulmonology this morning, and he recommended Home oxygen eval monitor Plan Code status: Full code DVT prophylaxis: On Eliquis Subjective Date/time seen: 01/30/25 07:40 Interval history: Chest CT performed on 01/24 shows possible abscess in the gallbladder area. Patient had a repeat CT today. Patient is currently on Unasyn and still WBC trending up. Called his daughter and updated the plan Review of Systems Review of Systems: Review of systems limited due to the patient's clinical condition and chronic hearing loss. Exam Narrative: Weight 115.8 kg BMI 31.1 Const: Other: Acutely ill-appearing, appears stated age, well-developed well-nourished HENMT: Other: Mucous membranes are dry, no oral pharyngeal erythema, head is normocephalic atraumatic Eyes: Other: Pupils are equal and reactive, mild scleral icterus, no conjunctival pallor, extraocular movements intact Neck: Other: No JVD, no lymphadenopathy Resp: Other: Marked tachypnea with respiratory rate in the mid 30s, accessory muscle use with abdominal respirations Cardio: Other: Irregularly irregular, tachycardic, 2+ bilateral radial pedal pulses, no JVD GI: Other: Markedly tender in the right upper quadrant area, abdomen was sent initially distended but on repeat evaluation after Armenta catheter lower abdomen is much softer, normoactive bowel sounds, no tympany : Other: Armenta catheter was placed was at bedside patient had turbid coke colored urine about 250 mL Skin: Other: Hot to touch, jaundice, 3-4 second cap refill Neuro: Other: Alert oriented to person, place and month confused as to the year thought the year was 2021 speech is clear, chronic hearing loss, no gross motor deficits noted on exam no facial asymmetry Extrem: Other: No clubbing, cyanosis or edema, moves all extremities equally, 5/5 visual display manager strength bilateral Psych: Other: Appropriately anxious, otherwise pleasant and cooperative Objective Data Vital Signs Vital Signs: Vital Signs - 24 hr 01/29/25 08:01 01/29/25 08:01 01/29/25 08:02 Temperature Pulse Rate 91 92 90 Respiratory Rate 20 Blood Pressure Pulse Oximetry 93 Oxygen Delivery Nasal Cannula Oxygen Flow Rate 3 Fraction of Inspired Oxygen 32 01/29/25 08:08 01/29/25 11:14 01/29/25 12:00 Temperature Pulse Rate 91 86 80 Respiratory Rate 20 20 Blood Pressure Pulse Oximetry 93 93 Oxygen Delivery Nasal Cannula Nasal Cannula Oxygen Flow Rate 2 3 Fraction of Inspired Oxygen 01/29/25 13:28 01/29/25 14:00 01/29/25 14:30 Temperature 97.3 F L Pulse Rate 86 Respiratory Rate 20 Blood Pressure 140/84 Pulse Oximetry 97 96 92 Oxygen Delivery Oxygen Flow Rate Fraction of Inspired Oxygen 01/29/25 15:42 01/29/25 16:00 01/29/25 19:44 Temperature Pulse Rate 85 71 Respiratory Rate 20 Blood Pressure Pulse Oximetry 93 94 Oxygen Delivery Nasal Cannula Nasal Cannula Oxygen Flow Rate 3 3 Fraction of Inspired Oxygen 32 01/29/25 20:00 01/29/25 22:00 01/30/25 00:00 Temperature 97.7 F Pulse Rate 86 86 97 Respiratory Rate 18 Blood Pressure 136/82 Pulse Oximetry 96 Oxygen Delivery Oxygen Flow Rate Fraction of Inspired Oxygen 01/30/25 04:00 01/30/25 06:00 Temperature 97.6 F Pulse Rate 85 92 Respiratory Rate 18 Blood Pressure 170/90 H Pulse Oximetry 93 Oxygen Delivery Oxygen Flow Rate Fraction of Inspired Oxygen Intake/Output Intake/Output: Intake & Output 01/27/25 01/28/25 01/29/25 01/30/25 23:59 23:59 23:59 23:59 Intake Total 2970 2730 4032.5 300 Output Total 5196 6311 7147 490 Balance -2090 -1895 1682.5 -190 Meds/Results Medications: Active Medications Generic Name Dose Route Start Last Admin Trade Name Freq PRN Reason Stop Dose Admin Acetaminophen 650 mg 01/21/25 02:19 01/21/25 09:30 Acetaminophen 325 Mg Tablet PO 650 mg Q4H PRN Administration Mild Pain (1-3) or Fever Apixaban 5 mg 01/28/25 21:00 01/29/25 19:44 Apixaban 5 Mg Tablet PO 5 mg Q12HR DREAD Administration Fish Oil 1 gm 01/21/25 09:00 01/29/25 08:02 [place] 3 Polyunsat Fatty Acids 1 Gm Cap PO 1 gm DAILY DREAD Administration Fluticasone Propionate 2 spray 01/23/25 21:00 01/29/25 19:44 Fluticasone Propionate 0.05% Na Spr 16 Gm Btl (*Bkc) NASAL 2 spray Q12HR DREAD Administration Guaifenesin 1,200 mg 01/25/25 21:00 01/29/25 19:44 Guaifenesin 12 Hr 600 Mg Tabcr PO 1,200 mg Q12HR DREAD Administration Ampicillin Sodium/Sulbactam 100 mls @ 200 mls/hr 01/29/25 13:30 01/30/25 05:44 Sodium 3 gm/ Sodium Chloride IVPB 200 mls/hr Q6HR DREAD Administration Metoprolol Succinate 25 mg 01/22/25 09:00 01/29/25 08:02 Metoprolol Succinate Ext Rel 25 Mg Tabcr PO 25 mg QAM DREAD Administration Morphine Sulfate 2 mg 01/25/25 09:42 01/25/25 23:41 Morphine Sulfate (*Crx) 2 Mg/Ml Inj IV PUSH 2 mg Q3H PRN Administration Pain Rated 7-10 Ondansetron HCl 4 mg 01/21/25 02:19 Ondansetron Inj 4 Mg/2 Ml Vial IV PUSH Q4H PRN Nausea Pantoprazole Sodium 40 mg 01/24/25 21:00 01/29/25 19:44 Pantoprazole Sodium Iv 40 Mg Vial IV PUSH 40 mg Q12HR DREAD Administration Zolpidem Tartrate 2.5 mg 01/29/25 10:15 01/29/25 21:14 Zolpidem Tartrate (*Crx) 2.5 Mg Tablet PO 2.5 mg HS PRN Administration Insomnia Radiology Results: ITS Impressions Chest/Abdomen/Pelvis CTA 01/21/25 08:52 Impression: Distended gallbladder with suspected mild pericholecystic inflammatory change, suspicious for acute cholecystitis. Correlate clinically. Consider ultrasound and/or HIDA scan for further evaluation as indicated. Mild bibasilar pulmonary edema/atelectasis. Upper Quadrant Ultrasound 01/21/25 12:09 IMPRESSION: Limited evaluation of the pancreas secondary to overlying bowel gas. Layering sludge within the distended gallbladder. Borderline gallbladder wall thickening without pericholecystic fluid. Trace surrounding inflammatory change on CT examination performed approximately 12 hours earlier with indeterminate findings on ultrasound examination. If clinical suspicion persists for acalculous cholecystitis, HIDA scan would provide additional information. Hepatobiliary Scan Nuclear Medicine 01/23/25 10:21 IMPRESSION: 1. Nonvisualization of the gallbladder and the 30 minutes following morphine administration consistent with acute cholecystitis. Chest CT 01/24/25 18:49 IMPRESSION: 1. Bilateral lower lobe airspace consolidation which may represent pneumonia and/or atelectasis. 2: Dilated gallbladder with wall thickening, pericystic cholecystic phlegmonous change and possible associated abscess involving the margin of the liver. Findings compatible with acute cholecystitis with sequela. 3: Small pleural effusions. 4: Nonobstructive left nephrolithiasis. Cholecystostomy 01/25/25 14:15 IMPRESSION: 1. Successful ultrasound-guided cholecystostomy tube placement. 2. 50 mL bile was sent for aerobic, anaerobic, and fungal cultures. 3. The catheter will be managed by Dr. Huang. A catheter cholangiogram may be performed not less than 48 hours after tube placement if clinically indicated to assess cystic duct patency. If cholecystectomy is not eventually performed and the infectious episode has resolved, the tube may be removed over a guidewire, preferably not less than 3 weeks after placement to allow time for a mature catheter tract to form to prevent bile leakage and peritonitis. Chest X-Ray 01/28/25 08:38 Impression: 1: Right basilar airspace disease may represent atelectasis or pneumonia. No significant change. 2: Subsegmental left basilar atelectasis. Labs Labs: Laboratory Results - last 24 hr 01/25/25 01/30/25 18:03 04:15 WBC 16.8 H RBC 4.19 L Hgb 13.0 L Hct 38.9 L MCV 92.8 MCH 31.0 MCHC 33.4 RDW 14.3 Plt Count 296 MPV 9.4 Immature Gran % (Auto) 5.6 H Neut % (Auto) 77.3 H Lymph % (Auto) 8.9 L [place] % (Auto) 6.8 Eos % (Auto) 0.7 Baso % (Auto) 0.7 Lymph # (Auto) 1.50 [place] # (Auto) 1.2 H Eos # (Auto) 0.1 Baso # (Auto) 0.1 Abs Immat Gran (auto) 0.95 H Absolute Neuts (auto) 13.0 H Absolute Nucleated RBC 0.000 Nucleated RBC % 0.0 Sodium 133 L Potassium 3.2 L Chloride 102 Carbon Dioxide 26 Anion Gap 5 BUN 26 H Creatinine 1.65 H Estim Creat Clear Calc 48 Estimated GFR 41 L Glucose 115 H Lactic Acid 0.8 Calcium 7.5 L Magnesium 1.7 Total Bilirubin 1.4 H AST 54 ALT 56 H Alkaline Phosphatase 85 Total Protein 5.6 L Albumin 2.5 L Chlamy pneumoniae PCR Not detected Adenovirus (PCR) Not detected B. pertussis DNA (PCR) Not detected B.parapertussis DNA PCR Not detected Coronavirus OC43 (PCR) Not detected Coronavirus HKU1 (PCR) Not detected Coronavirus 229E (PCR) Not detected Coronavirus NL63 (PCR) Not detected Human Metapneumovir PCR Not detected Influenza A (H1) PCR Not detected Influ A (H1/09) PCR Not detected Influenza A (H3) PCR Not detected Influenza Type A (PCR) Not detected Influenza Type B (PCR) Not detected M. pneumoniae (PCR) Not detected Parainfluenza 1 (PCR) Not detected Parainfluenza 2 (PCR) Not detected Parainfluenza 3 (PCR) Not detected Parainfluenza 4 (PCR) Not detected RSV (PCR) Not detected Entero/Rhino (PCR) Not detected SARS-CoV-2 (PCR) Not detected Quality VTE Prophylaxis VTE prophylaxis: pharmacologic ordered (Heparin GGT per protocol) Hospitalist MIPS Advance Care Plan I have confirmed that the patient's Advanced Care Plan is present, code status is documented, or surrogate decision maker is listed in patient medical record.: Yes Medication Reconciliation I have utilized all available resources to obtain, update and review the patients current medications (includes all prescriptions, OTC, herbals, c annabis, and nutritional supplements).: Yes
[2025-01-30] MEDS: PANTOPRAZOLE SODIUM IV 40 MG VIAL IV PUSH (08:10)
[2025-01-30] MEDS: OMEGA 3 POLYUNSAT FATTY ACIDS 1 GM CAP PO (08:10)
[2025-01-30] MEDS: FLUTICASONE PROPIONATE 0.05% NA SPR 16 GM BTL (*BKC) 2 SPRAY NASAL ×2 (08:11→21:07)
[2025-01-30] MEDS: APIXABAN 5 MG TABLET PO ×2 (08:11→21:07)
[2025-01-30] MEDS: guaiFENesin 12 HR 600 MG TABCR 1200 MG PO ×2 (08:11→21:07)
[2025-01-30] MEDS: METOPROLOL SUCCINATE EXT REL 25 MG TABCR PO (08:11)
--- NOTE | 2025-01-30 10:22 | WPDINFPN2 ---
Progress Note: A&P Assessment and Plan (1) Acute cholecystitis: Code(s): K81.0 - Acute cholecystitis Status: Acute (2) History of percutaneous insertion of cholecystostomy tube: Code(s): Z98.890 - Other specified postprocedural states Status: Acute (3) Multifocal pneumonia: Code(s): J18.8 - Other pneumonia, unspecified organism Status: Acute (4) Rhabdomyolysis: Code(s): M62.82 - Rhabdomyolysis Status: Acute (5) Transaminitis: Status: Acute (6) Hyperbilirubinemia: Code(s): E80.6 - Other disorders of bilirubin metabolism Status: Acute (7) Acute renal failure due to rhabdomyolysis: Code(s): N17.9 - Acute kidney failure, unspecified; M62.82 - Rhabdomyolysis Status: Acute (8) Atrial fibrillation with rapid ventricular response: Code(s): I48.91 - Unspecified atrial fibrillation Status: Acute (9) Hypoxemia: Code(s): R09.02 - Hypoxemia Status: Acute Plan # Acute cholecystitis status post cholecystostomy tube placement. -- drainage cultures positive for pansensitive E coli in the anaerobic specimen. Anaerobic culture remains pending -- transaminases and bilirubin improving. -- day 10 of antibiotics. Previously on Zosyn with change to meropenem 01/28/2025 given increasing WBC. White blood cell count continues to increase, however. # Possible basilar pneumonia. -- not definitive based on radiographic studies. May represent basilar atelectasis. -- noted to have hypoxemia which has improved but not resolved to baseline. May be a manifestation of residual sepsis. -- has completed an empiric course of antibiotics. # Acute rhabdomyolysis with WEI after being found down at home. # Progressive leukocytosis. -- externally, cholecystostomy tube unremarkable. Will need repeat CT scan to evaluate internally. -- possible early left antecubital fossa PIV phlebitis. To remove this IV. -- will obtain blood as well as urinalysis reflex to culture. -- no diarrhea. # Residual hypoxemia, albeit improved. Plan: -- has essentially completed a course of empiric Zosyn for suspected pneumonia and should only require an additional limited course of continued antibiotics post cholecystostomy tube drainage. Consequently, direct planned discharge antibiotics toward completion of treatment for acute cholecystitis post cholecystostomy tube drainage. -- bile drainage culture positive for pansensitive E coli. Okay to change IV antibiotics to Unasyn for now while watching progress of leukocytosis. -- with progressive leukocytosis over the last several days will obtain CT of abdomen to evaluate cholecystostomy drain site, blood cultures, and microscopic urinalysis with reflex to urine culture. -- remove left arm PIV. --after continued clinical improvement and, ideally, improvement in white blood cell count will eventually transition to oral Augmentin 875 mg q.12 hours x7 more days. -- continue to monitor O2 saturation with ongoing diuresis. -- further recommendations to follow. Patient was seen via video telehealth consultation with the assistance of staff. Chart, data, and patient independently reviewed. Patient was located at [facility] while I was located in my [place] office. Received verbal consent from patient. Subjective Date/time seen: 01/30/25 10:22 Interval history: 01/29/2025: Afebrile although white blood cell count increased today to 15.9. no evidence of cholecystostomy tube issues. Overall, patient feels better. 01/30/2025: Afebrile with stable vital signs but white blood cell count again increased now to 16.8. Patient denies specific complaints including new cough, abdominal pain, new discomfort near cholecystostomy tube, diarrhea, or urinary complaints. Left arm IV site with possible early phlebitis. Right arm IV site unremarkable. Cholecystostomy tube fluid culture 01/25: Pansensitive E coli. Review of Systems Review of Systems: denies cholecystostomy tube site pain. All systems reviewed & are unremarkable except as noted in HPI and below Exam Narrative: He is awake, alert, and interactive. No distress. Normocephalic. No conjunctivitis. Normal respirations. Abdomen not significantly distended. Right cholecystostomy catheter in place without surrounding visible inflammation. No significant tenderness to insertion site palpation. Bilious serosanguineous fluid in the collecting system. Output appears to be unimpeded. No diarrhea. No rash. Left antecubital fossa IV site with some erythema. Objective Data Vital Signs Vital Signs: Vital Signs - 24 hr 01/29/25 11:14 01/29/25 12:00 01/29/25 13:28 Temperature Pulse Rate 86 80 Respiratory Rate 20 Blood Pressure Pulse Oximetry 93 97 Oxygen Delivery Nasal Cannula Oxygen Flow Rate 3 Fraction of Inspired Oxygen 01/29/25 14:00 01/29/25 14:30 01/29/25 15:42 Temperature 97.3 F L Pulse Rate 86 85 Respiratory Rate 20 20 Blood Pressure 140/84 Pulse Oximetry 96 92 93 Oxygen Delivery Nasal Cannula Oxygen Flow Rate 3 Fraction of Inspired Oxygen 01/29/25 16:00 01/29/25 19:44 01/29/25 20:00 Temperature Pulse Rate 71 86 Respiratory Rate Blood Pressure Pulse Oximetry 94 Oxygen Delivery Nasal Cannula Oxygen Flow Rate 3 Fraction of Inspired Oxygen 32 01/29/25 22:00 01/30/25 00:00 01/30/25 04:00 Temperature 97.7 F Pulse Rate 86 97 85 Respiratory Rate 18 Blood Pressure 136/82 Pulse Oximetry 96 Oxygen Delivery Oxygen Flow Rate Fraction of Inspired Oxygen 01/30/25 06:00 01/30/25 08:00 01/30/25 08:11 Temperature 97.6 F Pulse Rate 92 98 96 Respiratory Rate 18 Blood Pressure 170/90 H Pulse Oximetry 93 Oxygen Delivery Oxygen Flow Rate Fraction of Inspired Oxygen 01/30/25 08:54 Temperature Pulse Rate 82 Respiratory Rate 20 Blood Pressure Pulse Oximetry 93 Oxygen Delivery Nasal Cannula Oxygen Flow Rate 2.5 Fraction of Inspired Oxygen Intake/Output Intake/Output: Intake & Output 01/27/25 01/28/25 01/29/25 01/30/25 23:59 23:59 23:59 23:59 Intake Total 2970 2730 4032.5 540 Output Total 5060 4625 2350 490 Balance -5910 -1893 1682.5 50 Meds/Results Medications: Active Medications Generic Name Dose Route Start Last Admin Trade Name Freq PRN Reason Stop Dose Admin Acetaminophen 650 mg 01/21/25 02:19 01/21/25 09:30 Acetaminophen 325 Mg Tablet PO 650 mg Q4H PRN Administration Mild Pain (1-3) or Fever Apixaban 5 mg 01/28/25 21:00 01/30/25 08:11 Apixaban 5 Mg Tablet PO 5 mg Q12HR DREAD Administration Fish Oil 1 gm 01/21/25 09:00 01/30/25 08:10 [place] 3 Polyunsat Fatty Acids 1 Gm Cap PO 1 gm DAILY DREAD Administration Fluticasone Propionate 2 spray 01/23/25 21:00 01/30/25 08:11 Fluticasone Propionate 0.05% Na Spr 16 Gm Btl (*Bkc) NASAL 2 spray Q12HR DREAD Administration Guaifenesin 1,200 mg 01/25/25 21:00 01/30/25 08:11 Guaifenesin 12 Hr 600 Mg Tabcr PO 1,200 mg Q12HR DREAD Administration Ampicillin Sodium/Sulbactam 100 mls @ 200 mls/hr 01/29/25 13:30 01/30/25 05:44 Sodium 3 gm/ Sodium Chloride IVPB 200 mls/hr Q6HR DREAD Administration Metoprolol Succinate 25 mg 01/22/25 09:00 01/30/25 08:11 Metoprolol Succinate Ext Rel 25 Mg Tabcr PO 25 mg QAM DREAD Administration Morphine Sulfate 2 mg 01/25/25 09:42 01/25/25 23:41 Morphine Sulfate (*Crx) 2 Mg/Ml Inj IV PUSH 2 mg Q3H PRN Administration Pain Rated 7-10 Ondansetron HCl 4 mg 01/21/25 02:19 Ondansetron Inj 4 Mg/2 Ml Vial IV PUSH Q4H PRN Nausea Pantoprazole Sodium 40 mg 01/24/25 21:00 01/30/25 08:10 Pantoprazole Sodium Iv 40 Mg Vial IV PUSH 40 mg Q12HR DREAD Administration Potassium Chloride 40 meq 01/30/25 10:15 Potassium Chloride 20 Meq Er Tablet PO 01/30/25 10:16 ONCE ONE Zolpidem Tartrate 2.5 mg 01/29/25 10:15 01/29/25 21:14 Zolpidem Tartrate (*Crx) 2.5 Mg Tablet PO 2.5 mg HS PRN Administration Insomnia Radiology Results: ITS Impressions Chest/Abdomen/Pelvis CTA 01/21/25 08:52 Impression: Distended gallbladder with suspected mild pericholecystic inflammatory change, suspicious for acute cholecystitis. Correlate clinically. Consider ultrasound and/or HIDA scan for further evaluation as indicated. Mild bibasilar pulmonary edema/atelectasis. Upper Quadrant Ultrasound 01/21/25 12:09 IMPRESSION: Limited evaluation of the pancreas secondary to overlying bowel gas. Layering sludge within the distended gallbladder. Borderline gallbladder wall thickening without pericholecystic fluid. Trace surrounding inflammatory change on CT examination performed approximately 12 hours earlier with indeterminate findings on ultrasound examination. If clinical suspicion persists for acalculous cholecystitis, HIDA scan would provide additional information. Hepatobiliary Scan Nuclear Medicine 01/23/25 10:21 IMPRESSION: 1. Nonvisualization of the gallbladder and the 30 minutes following morphine administration consistent with acute cholecystitis. Chest CT 01/24/25 18:49 IMPRESSION: 1. Bilateral lower lobe airspace consolidation which may represent pneumonia and/or atelectasis. 2: Dilated gallbladder with wall thickening, pericystic cholecystic phlegmonous change and possible associated abscess involving the margin of the liver. Findings compatible with acute cholecystitis with sequela. 3: Small pleural effusions. 4: Nonobstructive left nephrolithiasis. Cholecystostomy 01/25/25 14:15 IMPRESSION: 1. Successful ultrasound-guided cholecystostomy tube placement. 2. 50 mL bile was sent for aerobic, anaerobic, and fungal cultures. 3. The catheter will be managed by Dr. Huang. A catheter cholangiogram may be performed not less than 48 hours after tube placement if clinically indicated to assess cystic duct patency. If cholecystectomy is not eventually performed and the infectious episode has resolved, the tube may be removed over a guidewire, preferably not less than 3 weeks after placement to allow time for a mature catheter tract to form to prevent bile leakage and peritonitis. Chest X-Ray 01/28/25 08:38 Impression: 1: Right basilar airspace disease may represent atelectasis or pneumonia. No significant change. 2: Subsegmental left basilar atelectasis. Labs Labs: Laboratory Results - last 24 hr 01/25/25 01/30/25 18:03 04:15 WBC 16.8 H RBC 4.19 L Hgb 13.0 L Hct 38.9 L MCV 92.8 MCH 31.0 MCHC 33.4 RDW 14.3 Plt Count 296 MPV 9.4 Immature Gran % (Auto) 5.6 H Neut % (Auto) 77.3 H Lymph % (Auto) 8.9 L [place] % (Auto) 6.8 Eos % (Auto) 0.7 Baso % (Auto) 0.7 Lymph # (Auto) 1.50 [place] # (Auto) 1.2 H Eos # (Auto) 0.1 Baso # (Auto) 0.1 Abs Immat Gran (auto) 0.95 H Absolute Neuts (auto) 13.0 H Absolute Nucleated RBC 0.000 Nucleated RBC % 0.0 Sodium 133 L Potassium 3.2 L Chloride 102 Carbon Dioxide 26 Anion Gap 5 BUN 26 H Creatinine 1.65 H Estim Creat Clear Calc 48 Estimated GFR 41 L Glucose 115 H Lactic Acid 0.8 Calcium 7.5 L Magnesium 1.7 Total Bilirubin 1.4 H AST 54 ALT 56 H Alkaline Phosphatase 85 Total Protein 5.6 L Albumin 2.5 L Chlamy pneumoniae PCR Not detected Adenovirus (PCR) Not detected B. pertussis DNA (PCR) Not detected B.parapertussis DNA PCR Not detected Coronavirus OC43 (PCR) Not detected Coronavirus HKU1 (PCR) Not detected Coronavirus 229E (PCR) Not detected Coronavirus NL63 (PCR) Not detected Human Metapneumovir PCR Not detected Influenza A (H1) PCR Not detected Influ A (H1/09) PCR Not detected Influenza A (H3) PCR Not detected Influenza Type A (PCR) Not detected Influenza Type B (PCR) Not detected M. pneumoniae (PCR) Not detected Parainfluenza 1 (PCR) Not detected Parainfluenza 2 (PCR) Not detected Parainfluenza 3 (PCR) Not detected Parainfluenza 4 (PCR) Not detected RSV (PCR) Not detected Entero/Rhino (PCR) Not detected SARS-CoV-2 (PCR) Not detected
[2025-01-30] MEDS: POTASSIUM CHLORIDE 20 MEQ ER TABLET 40 MEQ PO (11:28)
[2025-01-30 14:06] LABS: Add Urine Microscopic? YES; Appearance Urine Clear (Clear); Glucose Urine UA Negative (Negative); Leukocyte Esterase Ur Negative LEU/UL (Negative); Nitrate Urine Negative (Negative); Non Pathogenic Casts 0-2; Specific Grav Ur 1.024 (1.001-1.035)
[2025-01-30] MEDS: ZOLPIDEM TARTRATE (*CRX) 2.5 MG TABLET PO (21:07)
[2025-01-30] MEDS: PANTOPRAZOLE 40 MG TABLET PO (21:07)
[2025-01-31] VITALS (11 sets, daily range): BP systolic 139–148; BP diastolic 81–87; PULSE 78–98; RESP 16–20; TEMP 36.4–36.6; O2SAT 94–97
[2025-01-31 05:31] LABS: Hematocrit 38.1 % (42.0-52.0); Hemoglobin 12.9 g/dL (14.0-18.0); Mean Corpuscular HGB Conc 33.9 g/dl (32-36); Mean Corpuscular Hemoglobin 31.3 pg (26-34); Mean Corpuscular Volume 92.5 fl (80-100); Platelet Count Result 291 k/mm3 (150-375); Red Blood Count 4.12 M/mm3 (4.6-6.20); White Blood Count 14.8 K/mm3 (4.5-10.0)
[2025-01-31] MEDS: AMPICILLIN SODIUM/SULBACTAM 3 GM in SODIUM CHLORIDE 0.9% IV 100 ML 200 ML IVPB ×3 (05:35→17:01)
[2025-01-31 05:43] LABS: Alanine Aminotransferase 65 U/L (6-50); Albumin Level 2.6 g/dL (3.5-5.1); Alkaline Phosphatase 93 U/L (38-126); Anion Gap 5 mmol/L (4-12); Aspartate Amino Transferase 60 U/L (17-59); Bilirubin,Total 1.2 mg/dL (0.2-1.3); Blood Urea Nitrogen 25 mg/dL (9-20); Calcium 7.7 mg/dL (8.4-10.2); Carbon Dioxide 27 mmol/L (22-30); Chloride 100 mmol/L (98-107); Estimated CRCL calculation 50 ml/min; Estimated Glomerular Filt Rate 42; Glucose 111 mg/dL (65-110); Potassium 3.4 mmol/L (3.4-5.0); Sodium 132 mmol/L (137-145); Total Protein 5.8 g/dL (6.3-8.2)
[2025-01-31] MEDS: OMEGA 3 POLYUNSAT FATTY ACIDS 1 GM CAP PO (08:15)
[2025-01-31] MEDS: METOPROLOL SUCCINATE EXT REL 25 MG TABCR PO (08:15)
[2025-01-31] MEDS: PANTOPRAZOLE 40 MG TABLET PO ×2 (08:15→20:56)
[2025-01-31] MEDS: APIXABAN 5 MG TABLET PO ×2 (08:15→20:56)
[2025-01-31] MEDS: FLUTICASONE PROPIONATE 0.05% NA SPR 16 GM BTL (*BKC) 2 SPRAY NASAL ×2 (08:16→20:57)
[2025-01-31] MEDS: guaiFENesin 12 HR 600 MG TABCR 1200 MG PO ×2 (08:16→20:56)
--- NOTE | 2025-01-31 10:18 | P.PNINF_ITS ---
Progress Note: A&P Assessment and Plan (1) Acute cholecystitis: Code(s): K81.0 - Acute cholecystitis Status: Acute (2) Pericholecystic abscess: Code(s): K81.0 - Acute cholecystitis Status: Acute (3) History of percutaneous insertion of cholecystostomy tube: Code(s): Z98.890 - Other specified postprocedural states Status: Acute (4) Multifocal pneumonia: Code(s): J18.8 - Other pneumonia, unspecified organism Status: Acute (5) Rhabdomyolysis: Code(s): M62.82 - Rhabdomyolysis Status: Acute (6) Transaminitis: Status: Acute (7) Hyperbilirubinemia: Code(s): E80.6 - Other disorders of bilirubin metabolism Status: Acute (8) Acute renal failure due to rhabdomyolysis: Code(s): N17.9 - Acute kidney failure, unspecified; M62.82 - Rhabdomyolysis Status: Acute (9) Atrial fibrillation with rapid ventricular response: Code(s): I48.91 - Unspecified atrial fibrillation Status: Acute (10) Hypoxemia: Code(s): R09.02 - Hypoxemia Status: Acute Plan # Acute cholecystitis with CT evidence of surrounding pericholecystic phlegmonous change and fluid collection suggesting pericholecystic abscess, now status post cholecystostomy tube placement. -- drainage cultures positive for pansensitive E coli in the aerobic specimen. Anaerobic culture negative. -- transaminases and bilirubin has been improving . Some increase in transaminases today. -- day 11 of antibiotics. Previously on Zosyn with change to meropenem 01/28/2025 given increasing WBC. Now deescalated to Unasyn based on gallbladder cultures. -- follow-up CT scan performed 01/30/2025 in response to progressive leukocytosis identifies cholecystostomy tube in proper position, decreased size of gallbladder, and decreased size of pericholecystic abscess. # Possible basilar pneumonia. -- not definitive based on radiographic studies. May represent basilar atelectasis. -- noted to have hypoxemia which has improved but not resolved to baseline. May be a manifestation of residual sepsis. -- has completed an empiric course of antibiotics. # Acute rhabdomyolysis with WEI after being found down at home. -- normalized CPK. # Progressive leukocytosis. -- improved as of 01/31/2025. -- possible early left antecubital fossa PIV phlebitis. IV removed. -- repeat blood cultures obtained and are pending. Urinalysis without pyuria. -- no diarrhea. # Residual hypoxemia, albeit improved. Plan: -- has essentially completed a course of empiric Zosyn for suspected pneumonia and should only require an additional limited course of continued antibiotics post cholecystostomy tube drainage. Consequently, direct planned discharge antibiotics toward completion of treatment for acute cholecystitis post cholecystostomy tube drainage AND pericholecystic abscess. -- bile drainage culture positive for pansensitive E coli. Okay to change IV antibiotics to Unasyn for now while watching progress of leukocytosis. -- continue to monitor blood cultures. -- after continued clinical improvement and, ideally, improvement in white blood cell count will eventually transition to oral Augmentin 875 mg q.12 hours x7 to 14 more days. -- further recommendations to follow. Patient was seen via video telehealth consultation with the assistance of staff. Chart, data, and patient independently reviewed. Patient was located at [facility] while I was located in my [place] office. Received verbal consent from patient. Subjective Date/time seen: 01/31/25 10:18 Interval history: 01/29/2025: Afebrile although white blood cell count increased today to 15.9. no evidence of cholecystostomy tube issues. Overall, patient feels better. 01/30/2025: Afebrile with stable vital signs but white blood cell count again increased now to 16.8. Patient denies specific complaints including new cough, abdominal pain, new discomfort near cholecystostomy tube, diarrhea, or urinary complaints. Left arm IV site with possible early phlebitis. Right arm IV site unremarkable. 01/31/2025: Afebrile and today with decrease in white blood cell count. no new complaints today. CT scan noted and verifies proper position of cholecystostomy tube along with decrease in size of suspected pericholecystic abscess. Cholecystostomy tube fluid culture 01/25: Pansensitive E coli. Review of Systems Review of Systems: denies cholecystostomy tube site pain. All systems reviewed & are unremarkable except as noted in HPI and below Exam Narrative: He is awake, alert, and interactive. No distress. Normocephalic. No conjunctivitis. Normal respirations. Abdomen not significantly distended. Right cholecystostomy catheter in place without surrounding visible inflammation. No significant tenderness to insertion site palpation. Bilious serosanguineous fluid in the collecting system. Output appears to be unimpeded. No diarrhea. No rash. Left antecubital fossa IV site with some erythema. Objective Data Vital Signs Vital Signs: Vital Signs - 24 hr 01/30/25 12:00 01/30/25 14:00 01/30/25 16:00 Temperature 97.7 F Pulse Rate 83 83 83 Respiratory Rate 18 Blood Pressure 148/89 H Pulse Oximetry 97 Oxygen Delivery Oxygen Flow Rate Fraction of Inspired Oxygen 01/30/25 20:00 01/30/25 20:05 01/30/25 22:47 Temperature Pulse Rate 77 85 Respiratory Rate 16 Blood Pressure Pulse Oximetry 94 95 Oxygen Delivery Nasal Cannula Nasal Cannula Oxygen Flow Rate 2 2 Fraction of Inspired Oxygen 32 01/30/25 22:54 01/31/25 00:00 01/31/25 04:00 Temperature 97.9 F Pulse Rate 83 92 79 Respiratory Rate 22 H Blood Pressure 157/85 H Pulse Oximetry 95 Oxygen Delivery Oxygen Flow Rate Fraction of Inspired Oxygen 01/31/25 06:41 01/31/25 08:00 01/31/25 08:15 Temperature 97.9 F Pulse Rate 92 98 90 Respiratory Rate 16 Blood Pressure 139/87 Pulse Oximetry 94 Oxygen Delivery Oxygen Flow Rate Fraction of Inspired Oxygen Intake/Output Intake/Output: Intake & Output 01/28/25 01/29/25 01/30/25 01/31/25 23:59 23:59 23:59 23:59 Intake Total 2730 4032.5 2930 450 Output Total 4625 2350 1360 1300 Balance -1895 1682.5 1570 -850 Meds/Results Medications: Active Medications Generic Name Dose Route Start Last Admin Trade Name Freq PRN Reason Stop Dose Admin Acetaminophen 650 mg 01/21/25 02:19 01/21/25 09:30 Acetaminophen 325 Mg Tablet PO 650 mg Q4H PRN Administration Mild Pain (1-3) or Fever Apixaban 5 mg 01/28/25 21:00 01/31/25 08:15 Apixaban 5 Mg Tablet PO 5 mg Q12HR DREAD Administration Fish Oil 1 gm 01/21/25 09:00 01/31/25 08:15 [place] 3 Polyunsat Fatty Acids 1 Gm Cap PO 1 gm DAILY DREAD Administration Fluticasone Propionate 2 spray 01/23/25 21:00 01/31/25 08:16 Fluticasone Propionate 0.05% Na Spr 16 Gm Btl (*Bkc) NASAL 2 spray Q12HR DREAD Administration Guaifenesin 1,200 mg 01/25/25 21:00 01/31/25 08:16 Guaifenesin 12 Hr 600 Mg Tabcr PO 1,200 mg Q12HR DREAD Administration Ampicillin Sodium/Sulbactam 100 mls @ 200 mls/hr 01/29/25 13:30 01/31/25 06:56 Sodium 3 gm/ Sodium Chloride IVPB Infused Q6HR DREAD Infusion Metoprolol Succinate 25 mg 01/22/25 09:00 01/31/25 08:15 Metoprolol Succinate Ext Rel 25 Mg Tabcr PO 25 mg QAM DREAD Administration Morphine Sulfate 2 mg 01/25/25 09:42 01/25/25 23:41 Morphine Sulfate (*Crx) 2 Mg/Ml Inj IV PUSH 2 mg Q3H PRN Administration Pain Rated 7-10 Ondansetron HCl 4 mg 01/21/25 02:19 Ondansetron Inj 4 Mg/2 Ml Vial IV PUSH Q4H PRN Nausea Pantoprazole Sodium 40 mg 01/30/25 21:00 01/31/25 08:15 Pantoprazole 40 Mg Tablet PO 40 mg Q12HR DREAD Administration Zolpidem Tartrate 2.5 mg 01/29/25 10:15 01/30/25 21:07 Zolpidem Tartrate (*Crx) 2.5 Mg Tablet PO 2.5 mg HS PRN Administration Insomnia Radiology Results: ITS Impressions Chest/Abdomen/Pelvis CTA 01/21/25 08:52 Impression: Distended gallbladder with suspected mild pericholecystic inflammatory change, suspicious for acute cholecystitis. Correlate clinically. Consider ultrasound an d/or HIDA scan for further evaluation as indicated. Mild bibasilar pulmonary edema/atelectasis. Upper Quadrant Ultrasound 01/21/25 12:09 IMPRESSION: Limited evaluation of the pancreas secondary to overlying bowel gas. Layering sludge within the distended gallbladder. Borderline gallbladder wall thickening without pericholecystic fluid. Trace surrounding inflammatory change on CT examination performed approximately 12 hours earlier with indeterminate findings on ultrasound examination. If clinical suspicion persists for acalculous cholecystitis, HIDA scan would provide additional information. Hepatobiliary Scan Nuclear Medicine 01/23/25 10:21 IMPRESSION: 1. Nonvisualization of the gallbladder and the 30 minutes following morphine administration consistent with acute cholecystitis. Chest CT 01/24/25 18:49 IMPRESSION: 1. Bilateral lower lobe airspace consolidation which may represent pneumonia and/or atelectasis. 2: Dilated gallbladder with wall thickening, pericystic cholecystic phlegmonous change and possible associated abscess involving the margin of the liver. Findings compatible with acute cholecystitis with sequela. 3: Small pleural effusions. 4: Nonobstructive left nephrolithiasis. Cholecystostomy 01/25/25 14:15 IMPRESSION: 1. Successful ultrasound-guided cholecystostomy tube placement. 2. 50 mL bile was sent for aerobic, anaerobic, and fungal cultures. 3. The catheter will be managed by Dr. Huang. A catheter cholangiogram may be performed not less than 48 hours after tube placement if clinically indicated to assess cystic duct patency. If cholecystectomy is not eventually performed and the infectious episode has resolved, the tube may be removed over a guidewire, preferably not less than 3 weeks after placement to allow time for a mature catheter tract to form to prevent bile leakage and peritonitis. Chest X-Ray 01/28/25 08:38 Impression: 1: Right basilar airspace disease may represent atelectasis or pneumonia. No significant change. 2: Subsegmental left basilar atelectasis. Abdomen CT 01/30/25 13:42 IMPRESSION: 1. Likely acute or chronic cholecystitis with percutaneous cholecystostomy tube in expected position. 2. Decrease in size of a 4.4 x 2.8 x 2.1 cm fluid collection positioned between the gallbladder, the gastric antrum and the inferior aspect of the left hepatic lobe which appears to communicate with the gallbladder through one of a couple defects in the wall of the gallbladder. 3. Small right and very small left pleural effusions with consolidation the dependent lower lobes, right greater than left with appearance favoring atelectasis over pneumonia. 4. Mild central periportal edema and minimal perihepatic ascites. 5. Wall thickening at the gastric antrum and at the hepatic flexure the colon which likely reactive related to the adjacent acute cholecystitis. Labs Labs: Laboratory Results - last 24 hr 01/30/25 01/31/25 13:53 04:35 WBC 14.8 H RBC 4.12 L Hgb 12.9 L Hct 38.1 L MCV 92.5 MCH 31.3 MCHC 33.9 RDW 14.0 Plt Count 291 MPV 9.4 Sodium 132 L Potassium 3.4 Chloride 100 Carbon Dioxide 27 Anion Gap 5 BUN 25 H Creatinine 1.60 H Estim Creat Clear Calc 50 Estimated GFR 42 L Glucose 111 H Calcium 7.7 L Total Bilirubin 1.2 AST 60 H ALT 65 H Alkaline Phosphatase 93 Total Protein 5.8 L Albumin 2.6 L Urine Color Yellow Urine Appearance Clear Urine pH 6.0 Ur Specific [place] 1.024 Urine Protein Negative Urine Glucose (UA) Negative Urine Ketones Negative Ur Blood (Man) Trace Urine Nitrate Negative Urine Bilirubin Negative Urine Urobilinogen 0.2 Leukocyte Esterase Rfl Negative Urine RBC 6-10 H Urine WBC 0-5 Ur Squamous Epith Cells None seen Urine Bacteria None seen Urine Casts 0-2
--- NOTE | 2025-01-31 12:05 | P.PNIM_ITS ---
Progress Note: A&P Assessment and Plan (1) Severe sepsis: Code(s): A41.9 - Sepsis, unspecified organism; R65.20 - Severe sepsis without septic shock Status: Acute (2) Multifocal pneumonia: Code(s): J18.8 - Other pneumonia, unspecified organism Status: Acute (3) Colitis: Code(s): K52.9 - Noninfective gastroenteritis and colitis, unspecified Status: Acute (4) Acute renal failure due to rhabdomyolysis: Code(s): N17.9 - Acute kidney failure, unspecified; M62.82 - Rhabdomyolysis Status: Acute (5) Transaminitis: Status: Acute (6) Acute dehydration: Code(s): E86.0 - Dehydration Status: Acute (7) Atrial fibrillation with rapid ventricular response: Code(s): I48.91 - Unspecified atrial fibrillation Status: Acute (8) GERD (gastroesophageal reflux disease): Qualifiers: Esophagitis presence: esophagitis presence not specified Qualified Code(s): K21.9 - Gastro-esophageal reflux disease without esophagitis Code(s): K21.9 - Gastro-esophageal reflux disease without esophagitis Status: Acute (9) Elevated troponin: Code(s): R79.89 - Other specified abnormal findings of blood chemistry Status: Acute (10) Memory impairment: Code(s): R41.3 - Other amnesia Status: Acute Plan Assessment and Plan (1) Severe sepsis: vital signs sable and within normal limits From Cholecystitis Status post meropenem and Zosyn Currently on Unasyn Blood culture and urine culture pending Gallbladder culture showed pansensitive E coli Monitor vitals Repeat CT abdomen due to concern of abscess on CT chest performed on 01/24 which shows Decrease in size of a 4.4 x 2.8 x 2.1 cm fluid collection positioned between the gallbladder, the gastric antrum and the inferior aspect of the left hepatic lobe (2) Multifocal pneumonia: CT chest reviewed S/p Levaquin, vanc discontinued as MRSA is negative Started Unasyn Monitor sputum Same as above (3) Colitis: Now on Unasyn (4) Acute renal failure due to rhabdomyolysis: Due to fall Continue IV hydration Echocardiogram pending Cr 1.59 from 2.04 Monitor I and O (5) Transaminitis, improving Improving, being managed for cholecystitis Monitor LFTs (6) Acute dehydration: Continue IV fluids (7) Atrial fibrillation with rapid ventricular response: Started on amiodarone On metoprolol 25 mg p.o. q.d. and Eliquis ECHO reviewed (8) GERD (gastroesophageal reflux disease): K21.9 - Gastro-esophageal reflux disease without esophagitis (9) Elevated troponin: Possibly due to rhabdomyolysis ECHO 50-55%, no regional wall motion abnormalities Cardiology noted no further intervention if no regional wall motion abnormalities Cardiology on board (10) Memory impairment: Code(s): R41.3 - Other amnesia Status: Acute E coli Acute cholecystitis HIDA scan showed acute cholecystitis Gall bladder culture grew pansensitive E coli GI evaluated and no concern for CBD obstruction that will require ERCP S/p Per Cholecystostomy Gen surgery okay with the discharge with Cholecystostomy tube ID following Stool brown and Hb stable and GI bleed ruled out Gi evaluated and recommended to monitor for now monitor Acute hypoxemic respiratory failure Patient on room air at baseline now on 3L down from 5L CT chest reviewed and continue abx as above Discussed with Pulmonology this morning, and he recommended Home oxygen eval monitor Plan Code status: Full code DVT prophylaxis: On Eliquis Subjective Date/time seen: 01/31/25 12:05 Interval history: Repeat CT shows decrease in fluid collection between the gallbladder, gastric antrum and inferior aspect of the left hepatic lobe. Patient is currently on Unasyn. No evidence of fever. WBC improving Review of Systems Review of Systems: Review of systems limited due to the patient's clinical condition and chronic hearing loss. All systems reviewed & are unremarkable except as noted in HPI and below ROS unobtainable: Yes unobtainable due to mental status Constitutional: Constitutional: Reports as per HPI and Reports no additional constitutional complaints Eyes: Eyes: Reports no additional eye complaints ENT: Reports system reviewed and no additional complaints, except as documented and Reports as per HPI Cardiovascular: Cardiovascular: Reports as per HPI, Reports no additional cardiovascular complaints, Denies chest pain and Denies dyspnea Respiratory: Respiratory: Reports no additional respiratory complaints, Denies cough and Denies dyspnea Gastrointestinal: Gastrointestinal: Reports as per HPI and Reports no additional gastrointestinal complaints Musculoskeletal: Musculoskeletal: Reports no additional musculoskeletal complaints and Reports as per HPI Integumentary/Breasts: Skin/Breast: Reports as per HPI Neurologic: Reports system reviewed and no additional complaints, except as documented and Reports confusion Psychiatric: Psychiatric: Reports no additional psychiatric complaints, Re ports as per HPI and Reports confusion Endocrine: Endocrine: Reports no additional endocrine complaints Hematologic/Lymphatic: Hematologic/Lymphatic: Reports no additional hematologic/lymphatic complaints Allergic/Immunologic: Allergic/Immunologic: Reports no additional allergic/immunologic complaints Exam Narrative: Weight 115.8 kg BMI 31.1 Const: General: cooperative, healthy appearing, comfortable, no acute distress, well developed, alert, awake, confusion and overweight Nutritional Appearance: overweight Orientation/consciousness: oriented to person, oriented to place, oriented to time, patient oriented x3 and confusion Other: Acutely ill-appearing, appears stated age, well-developed well-nourished HENMT: Head: normal to inspection, normocephalic and atraumatic Ears: hearing grossly normal bilaterally Mouth: Yes Normal oral and palatal mucosa present and Yes moist mucous membranes Other: Mucous membranes are dry, no oral pharyngeal erythema, head is normocephalic atraumatic Eyes: General: appearance normal, both eyes and all related structures Conjunctivae: conjunctivae normal Sclera: sclerae normal Pupils: Equal, round and reactive pupils present Other: Pupils are equal and reactive, mild scleral icterus, no conjunctival pallor, extraocular movements intact Neck: Neck: normal visual inspection, supple and no JVD Carotids: normal carotid upstroke Other: No JVD, no lymphadenopathy Chest: Chest palpation & inspection: normal inspection of the chest Resp: Effort & Inspection: normal respiratory effort and able to speak in complete sentences Auscultation: clear to auscultation bilaterally, crackles, no rales, no rhonchi, no wheezes and lung sounds not diminished Other: Marked tachypnea with respiratory rate in the mid 30s, accessory muscle use with abdominal respirations Cardio: Jugular venous distension: no JVD Rate: regular rate Rhythm: regular rhythm Heart sounds: S1 normal heart sound present, S2 normal heart sound present and no murmurs Other: Irregularly irregular, tachycardic, 2+ bilateral radial pedal pulses, no JVD GI: Inspection: normal to inspection, non-distended, obesity and other (Pigtail catheter now draining green bile) Auscultation: normal bowel sounds and normoactive bowel sounds Rectal Exam: deferred Other: Markedly tender in the right upper quadrant area, abdomen was sent initially distended but on repeat evaluation after Armenta catheter lower abdomen is much softer, normoactive bowel sounds, no tympany : Other: Armenta catheter was placed was at bedside patient had turbid coke colored urine about 250 mL Skin: General skin exam: normal color and no rashes or lesions noted Other: Hot to touch, jaundice, 3-4 second cap refill Neuro: General: oriented to person, oriented to place, oriented to time, patient oriented x3 and confusion Cranial nerves: Yes Equal, round and reactive pupils present Speech: normal speech Other: Alert oriented to person, place and month confused as to the year thought the year was 2021 speech is clear, chronic hearing loss, no gross motor deficits noted on exam no facial asymmetry Extrem: General: normal to inspection, no clubbing, cyanosis or edema, no calf tenderness and no edema Other: No clubbing, cyanosis or edema, moves all extremities equally, 5/5 manager payment strength bilateral Psych: Appearance: grossly normal and well kempt Mental Status: mental status grossly normal Affect: normal affect Other: Appropriately anxious, otherwise pleasant and cooperative Objective Data Vital Signs Vital Signs: Vital Signs - 24 hr 01/30/25 14:00 01/30/25 16:00 01/30/25 20:00 Temperature 97.7 F Pulse Rate 83 83 77 Respiratory Rate 18 Blood Pressure 148/89 H Pulse Oximetry 97 Oxygen Delivery Oxygen Flow Rate Fraction of Inspired Oxygen 01/30/25 20:05 01/30/25 22:47 01/30/25 22:54 Temperature 97.9 F Pulse Rate 85 83 Respiratory Rate 16 22 H Blood Pressure 157/85 H Pulse Oximetry 94 95 95 Oxygen Delivery Nasal Cannula Nasal Cannula Oxygen Flow Rate 2 2 Fraction of Inspired Oxygen 32 01/31/25 00:00 01/31/25 04:00 01/31/25 06:41 Temperature 97.9 F Pulse Rate 92 79 92 Respiratory Rate 16 Blood Pressure 139/87 Pulse Oximetry 94 Oxygen Delivery Oxygen Flow Rate Fraction of Inspired Oxygen 01/31/25 08:00 01/31/25 08:15 Temperature Pulse Rate 98 90 Respiratory Rate Blood Pressure Pulse Oximetry Oxygen Delivery Oxygen Flow Rate Fraction of Inspired Oxygen Intake/Output Intake/Output: Intake & Output 01/28/25 01/29/25 01/30/25 01/31/25 23:59 23:59 23:59 23:59 Intake Total 2730 4032.5 2930 690 Output Total 4625 2350 1360 1510 Balance -1895 1682.5 1570 -820 Meds/Results Medications: Active Medications Generic Name Dose Route Start Last Admin Trade Name Freq PRN Reason Stop Dose Admin Acetaminophen 650 mg 01/21/25 02:19 01/21/25 09:30 Acetaminophen 325 Mg Tablet PO 650 mg Q4H PRN Administration Mild Pain (1-3) or Fever Apixaban 5 mg 01/28/25 21:00 01/31/25 08:15 Apixaban 5 Mg Tablet PO 5 mg Q12HR DREAD Administration Fish Oil 1 gm 01/21/25 09:00 01/31/25 08:15 [place] 3 Polyunsat Fatty Acids 1 Gm Cap PO 1 gm DAILY DREAD Administration Fluticasone Propionate 2 spray 01/23/25 21:00 01/31/25 08:16 Fluticasone Propionate 0.05% Na Spr 16 Gm Btl (*Bkc) NASAL 2 spray Q12HR DREAD Administration Guaifenesin 1,200 mg 01/25/25 21:00 01/31/25 08:16 Guaifenesin 12 Hr 600 Mg Tabcr PO 1,200 mg Q12HR DREAD Administration Ampicillin Sodium/Sulbactam 100 mls @ 200 mls/hr 01/29/25 13:30 01/31/25 11:14 Sodium 3 gm/ Sodium Chloride IVPB 200 mls/hr Q6HR DREAD Administration Metoprolol Succinate 25 mg 01/22/25 09:00 01/31/25 08:15 Metoprolol Succinate Ext Rel 25 Mg Tabcr PO 25 mg QAM DREAD Administration Morphine Sulfate 2 mg 01/25/25 09:42 01/25/25 23:41 Morphine Sulfate (*Crx) 2 Mg/Ml Inj IV PUSH 2 mg Q3H PRN Administration Pain Rated 7-10 Ondansetron HCl 4 mg 01/21/25 02:19 Ondansetron Inj 4 Mg/2 Ml Vial IV PUSH Q4H PRN Nausea Pantoprazole Sodium 40 mg 01/30/25 21:00 01/31/25 08:15 Pantoprazole 40 Mg Tablet PO 40 mg Q12HR DREAD Administration Zolpidem Tartrate 2.5 mg 01/29/25 10:15 01/30/25 21:07 Zolpidem Tartrate (*Crx) 2.5 Mg Tablet PO 2.5 mg HS PRN Administration Insomnia Radiology Results: ITS Impressions Chest/Abdomen/Pelvis CTA 01/21/25 08:52 Impression: Distended gallbladder with suspected mild pericholecystic inflammatory change, suspicious for acute cholecystitis. Correlate clinically. Consider ultrasound and/or HIDA scan for further evaluation as indicated. Mild bibasilar pulmonary edema/atelectasis. Upper Quadrant Ultrasound 01/21/25 12:09 IMPRESSION: Limited evaluation of the pancreas secondary to overlying bowel gas. Layering sludge within the distended gallbladder. Borderline gallbladder wall thickening without pericholecystic fluid. Trace surrounding inflammatory change on CT examination performed approximately 12 hours earlier with indeterminate findings on ultrasound examination. If clinical suspicion persists for acalculous cholecystitis, HIDA scan would provide additional information. Hepatobiliary Scan Nuclear Medicine 01/23/25 10:21 IMPRESSION: 1. Nonvisualization of the gallbladder and the 30 minutes following morphine administration consistent with acute cholecystitis. Chest CT 01/24/25 18:49 IMPRESSION: 1. Bilateral lower lobe airspace consolidation which may represent pneumonia and/or atelectasis. 2: Dilated gallbladder with wall thickening, pericystic cholecystic phlegmonous change and possible associated abscess involving the margin of the liver. Findings compatible with acute cholecystitis with sequela. 3: Small pleural effusions. 4: Nonobstructive left nephrolithiasis. Cholecystostomy 01/25/25 14:15 IMPRESSION: 1. Successful ultrasound-guided cholecystostomy tube placement. 2. 50 mL bile was sent for aerobic, anaerobic, and fungal cultures. 3. The catheter will be managed by Dr. Huang. A catheter cholangiogram may be performed not less than 48 hours after tube placement if clinically indicated to assess cystic duct patency. If cholecystectomy is not eventually performed and the infectious episode has resolved, the tube may be removed over a guidewire, preferably not less than 3 weeks after placement to allow time for a mature catheter tract to form to prevent bile leakage and peritonitis. Chest X-Ray 01/28/25 08:38 Impression: 1: Right basilar airspace disease may represent atelectasis or pneumonia. No significant change. 2: Subsegmental left basilar atelectasis. Abdomen CT 01/30/25 13:42 IMPRESSION: 1. Likely acute or chronic cholecystitis with percutaneous cholecystostomy tube in expected position. 2. Decrease in size of a 4.4 x 2.8 x 2.1 cm fluid collection positioned between the gallbladder, the gastric antrum and the inferior aspect of the left hepatic lobe which appears to communicate with the gallbladder through one of a couple defects in the wall of the gallbladder. 3. Small right and very small left pleural effusions with consolidation the dependent lower lobes, right greater than left with appearance favoring atelectasis over pneumonia. 4. Mild central periportal edema and minimal perihepatic ascites. 5. Wall thickening at the gastric antrum and at the hepatic flexure the colon which likely reactive related to the adjacent acute cholecystitis. Labs Labs: Laboratory Results - last 24 hr 01/30/25 01/31/25 13:53 04:35 WBC 14.8 H RBC 4.12 L Hgb 12.9 L Hct 38.1 L MCV 92.5 MCH 31.3 MCHC 33.9 RDW 14.0 Plt Count 291 MPV 9.4 Sodium 132 L Potassium 3.4 Chloride 100 Carbon Dioxide 27 Anion Gap 5 BUN 25 H Creatinine 1.60 H Estim Creat Clear Calc 50 Estimated GFR 42 L Glucose 111 H Calcium 7.7 L Total Bilirubin 1.2 AST 60 H ALT 65 H Alkaline Phosphatase 93 Total Protein 5.8 L Albumin 2.6 L Urine Color Yellow Urine Appearance Clear Urine pH 6.0 Ur Specific [place] 1.024 Urine Protein Negative Urine Glucose (UA) Negative Urine Ketones Negative Ur Blood (Man) Trace Urine Nitrate Negative Urine Bilirubin Negative Urine Urobilinogen 0.2 Leukocyte Esterase Rfl Negative Urine RBC 6-10 H Urine WBC 0-5 Ur Squamous Epith Cells None seen Urine Bacteria None seen Urine Casts 0-2 Quality VTE Prophylaxis VTE prophylaxis: pharmacologic ordered (Heparin GGT per protocol) Hospitalist MIPS Advance Care Plan I have confirmed that the patient's Advanced Care Plan is present, code status is documented, or surrogate decision maker is listed in patient medical record.: Yes Medication Reconciliation I have utilized all available resources to obtain, update and review the patients current medications (includes all prescriptions, OTC, herbals, c annabis, and nutritional supplements).: Yes
[2025-01-31] MEDS: ZOLPIDEM TARTRATE (*CRX) 2.5 MG TABLET PO (20:56)
[2025-02-01] VITALS (13 sets, daily range): BP systolic 132–161; BP diastolic 69–86; PULSE 70–95; RESP 16–18; TEMP 36.3–36.6; O2SAT 90–97
[2025-02-01] MEDS: AMPICILLIN SODIUM/SULBACTAM 3 GM in SODIUM CHLORIDE 0.9% IV 100 ML 200 ML IVPB ×3 (00:02→11:08)
[2025-02-01 04:55] LABS: Hematocrit 35.8 % (42.0-52.0); Hemoglobin 11.9 g/dL (14.0-18.0); Mean Corpuscular HGB Conc 33.2 g/dl (32-36); Mean Corpuscular Hemoglobin 31.1 pg (26-34); Mean Corpuscular Volume 93.5 fl (80-100); Platelet Count Result 290 k/mm3 (150-375); Red Blood Count 3.83 M/mm3 (4.6-6.20); White Blood Count 11.6 K/mm3 (4.5-10.0)
[2025-02-01 05:16] LABS: Alanine Aminotransferase 65 U/L (6-50); Albumin Level 2.6 g/dL (3.5-5.1); Alkaline Phosphatase 91 U/L (38-126); Anion Gap 5 mmol/L (4-12); Aspartate Amino Transferase 58 U/L (17-59); Bilirubin,Total 1.2 mg/dL (0.2-1.3); Blood Urea Nitrogen 22 mg/dL (9-20); Calcium 7.6 mg/dL (8.4-10.2); Carbon Dioxide 28 mmol/L (22-30); Chloride 100 mmol/L (98-107); Estimated CRCL calculation 47 ml/min; Estimated Glomerular Filt Rate 40; Glucose 113 mg/dL (65-110); Potassium 3.2 mmol/L (3.4-5.0); Sodium 133 mmol/L (137-145); Total Protein 5.7 g/dL (6.3-8.2)
[2025-02-01] MEDS: OMEGA 3 POLYUNSAT FATTY ACIDS 1 GM CAP PO (08:36)
[2025-02-01] MEDS: guaiFENesin 12 HR 600 MG TABCR 1200 MG PO ×2 (08:36→21:17)
[2025-02-01] MEDS: METOPROLOL SUCCINATE EXT REL 25 MG TABCR PO (08:36)
[2025-02-01] MEDS: FLUTICASONE PROPIONATE 0.05% NA SPR 16 GM BTL (*BKC) 2 SPRAY NASAL ×2 (08:36→21:17)
[2025-02-01] MEDS: PANTOPRAZOLE 40 MG TABLET PO ×2 (08:37→21:17)
[2025-02-01] MEDS: APIXABAN 5 MG TABLET PO ×2 (08:37→21:17)
--- NOTE | 2025-02-01 08:48 | P.PNIM_ITS ---
Progress Note: A&P Assessment and Plan (1) Severe sepsis: Code(s): A41.9 - Sepsis, unspecified organism; R65.20 - Severe sepsis without septic shock Status: Acute (2) Multifocal pneumonia: Code(s): J18.8 - Other pneumonia, unspecified organism Status: Acute (3) Colitis: Code(s): K52.9 - Noninfective gastroenteritis and colitis, unspecified Status: Acute (4) Acute renal failure due to rhabdomyolysis: Code(s): N17.9 - Acute kidney failure, unspecified; M62.82 - Rhabdomyolysis Status: Acute (5) Transaminitis: Status: Acute (6) Acute dehydration: Code(s): E86.0 - Dehydration Status: Acute (7) Atrial fibrillation with rapid ventricular response: Code(s): I48.91 - Unspecified atrial fibrillation Status: Acute (8) GERD (gastroesophageal reflux disease): Qualifiers: Esophagitis presence: esophagitis presence not specified Qualified Code(s): K21.9 - Gastro-esophageal reflux disease without esophagitis Code(s): K21.9 - Gastro-esophageal reflux disease without esophagitis Status: Acute (9) Elevated troponin: Code(s): R79.89 - Other specified abnormal findings of blood chemistry Status: Acute (10) Memory impairment: Code(s): R41.3 - Other amnesia Status: Acute Plan Assessment and Plan (1) Severe sepsis: vital signs sable and within normal limits From Cholecystitis Status post meropenem and Zosyn DC Unasyn Amoxicillin/Clavulanate PO QD until 02/15. Drainage cultures positive for pansensitive E coli in the aerobic specimen. Anaerobic culture negative. Gallbladder culture showed pansensitive E coli Monitor vitals Repeat CT abdomen due to concern of abscess on CT chest performed on 01/24 which shows Decrease in size of a 4.4 x 2.8 x 2.1 cm fluid collection positioned between the gallbladder, the gastric antrum and the inferior aspect of the left hepatic lobe (2) Multifocal pneumonia: CT chest reviewed S/p Levaquin, vanc discontinued as MRSA is negative Discontinue Unasyn Started Augmentin Monitor sputum Same as above (3) Colitis: Now on Unasyn (4) Acute renal failure due to rhabdomyolysis: Due to fall Continue IV hydration Echocardiogram pending Cr 1.59 from 2.04 Monitor I and O (5) Transaminitis, improving Improving, being managed for cholecystitis Monitor LFTs (6) Acute dehydration: Continue IV fluids (7) Atrial fibrillation with rapid ventricular response: Started on amiodarone On metoprolol 25 mg p.o. q.d. and Eliquis ECHO reviewed (8) GERD (gastroesophageal reflux disease): K21.9 - Gastro-esophageal reflux disease without esophagitis (9) Elevated troponin: Possibly due to rhabdomyolysis ECHO 50-55%, no regional wall motion abnormalities Cardiology noted no further intervention if no regional wall motion abnorm alities Cardiology on board (10) Memory impairment: Code(s): R41.3 - Other amnesia Status: Acute E coli Acute cholecystitis HIDA scan showed acute cholecystitis Gall bladder culture grew pansensitive E coli GI evaluated and no concern for CBD obstruction that will require ERCP S/p Per Cholecystostomy Gen surgery okay with the discharge with Cholecystostomy tube ID following Stool brown and Hb stable and GI bleed ruled out Gi evaluated and recommended to monitor for now monitor Acute hypoxemic respiratory failure Patient on room air at baseline now on 3L down from 5L CT chest reviewed and continue abx as above Discussed with Pulmonology this morning, and he recommended Home oxygen eval monitor Plan Code status: Full code DVT prophylaxis: On Eliquis Subjective Date/time seen: 02/01/25 08:48 Interval history: No acute events overnight. Decrease in the size of pericholecystic abscess. Patient was seen by the ID and was changed from Unasyn to Augmentin. Review of Systems Review of Systems: Review of systems limited due to the patient's clinical condition and chronic hearing loss. All systems reviewed & are unremarkable except as noted in HPI and below ROS unobtainable: Yes unobtainable due to mental status Constitutional: Constitutional: Reports as per HPI and Reports no additional constitutional complaints Eyes: Eyes: Reports no additional eye complaints ENT: Reports system reviewed and no additional complaints, except as documented and Reports as per HPI Cardiovascular: Cardiovascular: Reports as per HPI, Reports no additional cardiovascular complaints, Denies chest pain and Denies dyspnea Respiratory: Respiratory: Reports no additional respiratory complaints, Denies cough and Denies dyspnea Gastrointestinal: Gastrointestinal: Reports as per HPI and Reports no additional gastrointestinal complaints Musculoskeletal: Musculoskeletal: Reports no additional musculoskeletal complaints and Reports as per HPI Integumentary/Breasts: Skin/Breast: Reports as per HPI Neurologic: Reports system reviewed and no additional complaints, except as documented and Reports confusion Psychiatric: Psychiatric: Reports no additional psychiatric complaints, Reports as per HPI and Reports confusion Endocrine: Endocrine: Reports no additional endocrine complaints Hematologic/Lymphatic: Hematologic/Lymphatic: Reports no additional hematologic/lymphatic complaints Allergic/Immunologic: Allergic/Immunologic: Reports no additional allergic/immunologic complaints Exam Narrative: Weight 115.8 kg BMI 31.1 Const: General: cooperative, healthy appearing, comfortable, no acute distres s, well developed, alert, awake, confusion and overweight Nutritional Appearance: overweight Orientation/consciousness: oriented to person, orient ed to place, oriented to time, patient oriented x3 and confusion Other: Acutely ill-appearing, appears stated age, well-developed well-nourished HENMT: Head: normal to inspection, normocephalic and atraumatic Ears: hearing grossly normal bilaterally Mouth: Yes Normal oral and palatal mucosa present and Yes moist mucous membranes Other: Mucous membranes are dry, no oral pharyngeal erythema, head is normocephalic atraumatic Eyes: General: appearance normal, both eyes and all related structures Conjunctivae: conjunctivae normal Sclera: sclerae normal Pupils: Equal, round and reactive pupils present Other: Pupils are equal and reactive, mild scleral icterus, no conjunctival pallor, extraocular movements intact Neck: Neck: normal visual inspection, supple and no JVD Carotids: normal carotid upstroke Other: No JVD, no lymphadenopathy Chest: Chest palpation & inspection: normal inspection of the chest Resp: Effort & Inspection: normal respiratory effort and able to speak in complete sentences Auscultation: clear to auscultation bilaterally, crackles, no rales, no rhonchi, no wheezes and lung sounds not diminished Other: Marked tachypnea with respiratory rate in the mid 30s, accessory muscle use with abdominal respirations Cardio: Jugular venous distension: no JVD Rate: regular rate Rhythm: regular rhythm Heart sounds: S1 normal heart sound present, S2 normal heart sound present and no murmurs Other: Irregularly irregular, tachycardic, 2+ bilateral radial pedal pulses, no JVD GI: Inspection: normal to inspection, non-distended, obesity and other (Pigtail catheter now draining green bile) Auscultation: normal bowel sounds and normoactive bowel sounds Rectal Exam: deferred Other: Markedly tender in the right upper quadrant area, abdomen was sent initially distended but on repeat evaluation after Armenta catheter lower abdomen is much softer, normoactive bowel sounds, no tympany : Other: Armenta catheter was placed was at bedside patient had turbid coke colored urine about 250 mL Skin: General skin exam: normal color and no rashes or lesions noted Other: Hot to touch, jaundice, 3-4 second cap refill Neuro: General: oriented to person, oriented to place, oriented to time, patient oriented x3 and confusion Cranial nerves: Yes Equal, round and reactive pupils present Speech: normal speech Other: Alert oriented to person, place and month confused as to the year thought the year was 2021 speech is clear, chronic hearing loss, no gross motor deficits noted on exam no facial asymmetry Extrem: General: normal to inspection, no clubbing, cyanosis or edema, no calf tenderness and no edema Other: No clubbing, cyanosis or edema, moves all extremities equally, 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 Psych: Appearance: grossly normal and well kempt Mental Status: mental status grossly normal Affect: normal affect Other: Appropriately anxious, otherwise pleasant and cooperative Objective Data Vital Signs Vital Signs: Vital Signs - 24 hr 01/31/25 12:00 01/31/25 14:00 01/31/25 16:00 Temperature 97.6 F Pulse Rate 83 81 78 Respiratory Rate 16 Blood Pressure 142/87 H Pulse Oximetry 96 Oxygen Delivery Oxygen Flow Rate 01/31/25 20:00 01/31/25 20:46 01/31/25 21:00 Temperature 97.6 F Pulse Rate 82 80 Respiratory Rate 20 Blood Pressure 148/81 H Pulse Oximetry 97 97 Oxygen Delivery Nasal Cannula Oxygen Flow Rate 2 02/01/25 00:00 02/01/25 01:33 02/01/25 04:00 Temperature Pulse Rate 78 82 Respiratory Rate Blood Pressure Pulse Oximetry 97 Oxygen Delivery Nasal Cannula Oxygen Flow Rate 4 02/01/25 04:36 02/01/25 08:36 Temperature 97.6 F Pulse Rate 84 70 Respiratory Rate 18 Blood Pressure 146/86 H Pulse Oximetry 91 Oxygen Delivery Oxygen Flow Rate Intake/Output Intake/Output: Intake & Output 01/29/25 01/30/25 01/31/25 02/01/25 23:59 23:59 23:59 23:59 Intake Total 4032.5 2930 1610 590 Output Total 2350 1360 2009 125 Balance 1682.5 1579 -259 -081 Meds/Results Medications: Active Medications Generic Name Dose Route Start Last Admin Trade Name Freq PRN Reason Stop Dose Admin Acetaminophen 650 mg 01/21/25 02:19 01/21/25 09:30 Acetaminophen 325 Mg Tablet PO 650 mg Q4H PRN Administration Mild Pain (1-3) or Fever Apixaban 5 mg 01/28/25 21:00 02/01/25 08:37 Apixaban 5 Mg Tablet PO 5 mg Q12HR DREAD Administration Fish Oil 1 gm 01/21/25 09:00 02/01/25 08:36 [place] 3 Polyunsat Fatty Acids 1 Gm Cap PO 1 gm DAILY DREAD Administration Fluticasone Propionate 2 spray 01/23/25 21:00 02/01/25 08:36 Fluticasone Propionate 0.05% Na Spr 16 Gm Btl (*Bkc) NASAL 2 spray Q12HR DREAD Administration Guaifenesin 1,200 mg 01/25/25 21:00 02/01/25 08:36 Guaifenesin 12 Hr 600 Mg Tabcr PO 1,200 mg Q12HR DREAD Administration Ampicillin Sodium/Sulbactam 100 mls @ 200 mls/hr 01/29/25 13:30 02/01/25 05:49 Sodium 3 gm/ Sodium Chloride IVPB Infused Q6HR DREAD Infusion Metoprolol Succinate 25 mg 01/22/25 09:00 02/01/25 08:36 Metoprolol Succinate Ext Rel 25 Mg Tabcr PO 25 mg QAM DREAD Administration Morphine Sulfate 2 mg 01/25/25 09:42 01/25/25 23:41 Morphine Sulfate (*Crx) 2 Mg/Ml Inj IV PUSH 2 mg Q3H PRN Administration Pain Rated 7-10 Ondansetron HCl 4 mg 01/21/25 02:19 Ondansetron Inj 4 Mg/2 Ml Vial IV PUSH Q4H PRN Nausea Pantoprazole Sodium 40 mg 01/30/25 21:00 02/01/25 08:37 Pantoprazole 40 Mg Tablet PO 40 mg Q12HR DREAD Administration Zolpidem Tartrate 2.5 mg 01/29/25 10:15 01/31/25 20:56 Zolpidem Tartrate (*Crx) 2.5 Mg Tablet PO 2.5 mg HS PRN Administration Insomnia Radiology Results: ITS Impressions Chest/Abdomen/Pelvis CTA 01/21/25 08:52 Impression: Distended gallbladder with suspected mild pericholecystic inflammatory change, suspicious for acute cholecystitis. Correlate clinically. Consider ultrasound and/or HIDA scan for further evaluation as indicated. Mild bibasilar pulmonary edema/atelectasis. Upper Quadrant Ultrasound 01/21/25 12:09 IMPRESSION: Limited evaluation of the pancreas secondary to overlying bowel gas. Layering sludge within the distended gallbladder. Borderline gallbladder wall thickening without pericholecystic fluid. Trace surrounding inflammatory change on CT examination performed approximately 12 hours earlier with indeterminate findings on ultrasound examination. If clinical suspicion persists for acalculous cholecystitis, HIDA scan would p rovide additional information. Hepatobiliary Scan Nuclear Medicine 01/23/25 10:21 IMPRESSION: 1. Nonvisualization of the gallbladder and the 30 minutes following morphine administration consistent with acute cholecystitis. Chest CT 01/24/25 18:49 IMPRESSION: 1. Bilateral lower lobe airspace consolidation which may represent pneumonia and/or atelectasis. 2: Dilated gallbladder with wall thickening, pericystic cholecystic phlegmonous change and possible associated abscess involving the margin of the liver. Findings compatible with acute cholecystitis with sequela. 3: Small pleural effusions. 4: Nonobstructive left nephrolithiasis. Cholecystostomy 01/25/25 14:15 IMPRESSION: 1. Successful ultrasound-guided cholecystostomy tube placement. 2. 50 mL bile was sent for aerobic, anaerobic, and fungal cultures. 3. The catheter will be managed by Dr. Huang. A catheter cholangiogram may be performed not less than 48 hours after tube placement if clinically indicated to assess cystic duct patency. If cholecystectomy is not eventually performed and the infectious episode has resolved, the tube may be removed over a guidewire, preferably not less than 3 weeks after placement to allow time for a mature catheter tract to form to prevent bile leakage and peritonitis. Chest X-Ray 01/28/25 08:38 Impression: 1: Right basilar airspace disease may represent atelectasis or pneumonia. No significant change. 2: Subsegmental left basilar atelectasis. Abdomen CT 01/30/25 13:42 IMPRESSION: 1. Likely acute or chronic cholecystitis with percutaneous cholecystostomy tube in expected position. 2. Decrease in size of a 4.4 x 2.8 x 2.1 cm fluid collection positioned between the gallbladder, the gastric antrum and the inferior aspect of the left hepatic lobe which appears to communicate with the gallbladder through one of a couple defects in the wall of the gallbladder. 3. Small right and very small left pleural effusions with consolidation the dependent lower lobes, right greater than left with appearance favoring atelectasis over pneumonia. 4. Mild central periportal edema and minimal perihepatic ascites. 5. Wall thickening at the gastric antrum and at the hepatic flexure the colon which likely reactive related to the adjacent acute cholecystitis. Labs Labs: Laboratory Results - last 24 hr 02/01/25 04:29 WBC 11.6 H RBC 3.83 L Hgb 11.9 L Hct 35.8 L MCV 93.5 MCH 31.1 MCHC 33.2 RDW 13.9 Plt Count 290 MPV 9.3 Sodium 133 L Potassium 3.2 L Chloride 100 Carbon Dioxide 28 Anion Gap 5 BUN 22 H Creatinine 1.68 H Estim Creat Clear Calc 47 Estimated GFR 40 L Glucose 113 H Calcium 7.6 L Total Bilirubin 1.2 AST 58 ALT 65 H Alkaline Phosphatase 91 Total Protein 5.7 L Albumin 2.6 L Quality VTE Prophylaxis VTE prophylaxis: pharmacologic ordered (Heparin GGT per protocol) Hospitalist MIPS Advance Care Plan I have confirmed that the patient's Advanced Care Plan is present, code status is documented, or surrogate decision maker is listed in patient medical record.: Yes Medication Reconciliation I have utilized all available resources to obtain, update and review the patients current medications (includes all prescriptions, OTC, herbals, cannabis, and nutritional supplements).: Yes
--- NOTE | 2025-02-01 10:32 | P.PNINF_ITS ---
Progress Note: A&P Assessment and Plan (1) Acute cholecystitis: Code(s): K81.0 - Acute cholecystitis Status: Acute (2) Pericholecystic abscess: Code(s): K81.0 - Acute cholecystitis Status: Acute (3) History of percutaneous insertion of cholecystostomy tube: Code(s): Z98.890 - Other specified postprocedural states Status: Acute (4) Multifocal pneumonia: Code(s): J18.8 - Other pneumonia, unspecified organism Status: Acute (5) Rhabdomyolysis: Code(s): M62.82 - Rhabdomyolysis Status: Acute (6) Transaminitis: Status: Acute (7) Hyperbilirubinemia: Code(s): E80.6 - Other disorders of bilirubin metabolism Status: Acute (8) Acute renal failure due to rhabdomyolysis: Code(s): N17.9 - Acute kidney failure, unspecified; M62.82 - Rhabdomyolysis Status: Acute (9) Atrial fibrillation with rapid ventricular response: Code(s): I48.91 - Unspecified atrial fibrillation Status: Acute (10) Hypoxemia: Code(s): R09.02 - Hypoxemia Status: Acute Plan # Acute cholecystitis with CT evidence of surrounding pericholecystic phlegmonous change and fluid collection suggesting pericholecystic abscess, now status post cholecystostomy tube placement. -- drainage cultures positive for pansensitive E coli in the aerobic specimen. Anaerobic culture negative. -- post cholecystostomy tube placement procedure day 7 have been and day 11 of total antibiotics. Previously on Zosyn with change to meropenem 01/28/2025 given increasing WBC. Now deescalated to Unasyn based on gallbladder cultures. -- follow-up CT scan performed 01/30/2025 in response to progressive leukocytosis identifies cholecystostomy tube in proper position, decreased size of gallbladder, and decreased size of pericholecystic abscess. # Possible basilar pneumonia. -- not definitive based on radiographic studies. May represent basilar atelectasis. -- noted to have hypoxemia which has improved but not resolved to baseline. May be a manifestation of residual sepsis. -- has completed an empiric course of antibiotics. # Acute rhabdomyolysis with WEI after being found down at home. -- normalized CPK. # Progressive leukocytosis. -- continues to improve. Suspect related to delayed response in treatment of cholecystitis associated with possible pericholecystic abscess. -- possible early left antecubital fossa PIV phlebitis. IV removed. -- repeat blood cultures obtained and are pending. Urinalysis without pyuria. -- no diarrhea. # Residual hypoxemia, albeit improved. Plan: -- has essentially completed a course of empiric Zosyn for suspected pneumonia and should only require an additional limited course of continued antibiotics post cholecystostomy tube drainage. Consequently, direct planned discharge antibiotics toward completion of treatment for acute cholecystitis post cholecystostomy tube drainage AND pericholecystic abscess. -- bile drainage culture positive for pansensitive E coli. Currently on Unasyn but will now change to oral Augmentin 875 mg q.12 hours for 14 additional days. -- with clinical improvement and improvement in white blood cell count okay totransition to oral Augmentin 875 mg q.12 hours x 14 more days. treatment now directed toward pericholecystic abscess. Patient was seen via video telehealth consultation with the assistance of staff. Chart, data, and patient independently reviewed. Patient was located at [facility] while I was located in my [place] office. Received verbal consent from patient. Subjective Date/time seen: 02/01/25 10:32 Interval history: 01/29/2025: Afebrile although white blood cell count increased today to 15.9. no evidence of cholecystostomy tube issues. Overall, patient feels better. 01/30/2025: Afebrile with stable vital signs but white blood cell count again increased now to 16.8. Patient denies specific complaints including new cough, abdominal pain, new discomfort near cholecystostomy tube, diarrhea, or urinary complaints. Left arm IV site with possible early phlebitis. Right arm IV site unremarkable. 01/31/2025: Afebrile and today with decrease in white blood cell count. no new complaints today. CT scan noted and verifies proper position of cholecystostomy tube along with decrease in size of suspected pericholecystic abscess. 02/01/2025: Afebrile and white blood cell count continues to improve, now down to 11.6. clinically doing well. Cholecystostomy tube fluid culture 01/25: Pansensitive E coli. Blood cultures 01/30: Negative at 24 hours Review of Systems Review of Systems: Denies cholecystostomy tube site pain. All systems reviewed & are unremarkable except as noted in HPI and below Exam Narrative: He is awake, alert, and interactive. No distress. Normocephalic. No conjunctivitis. Normal respirations. Abdomen not significantly distended. Right cholecystostomy catheter in place without surrounding visible inflammation. No significant tenderness to insertion site palpation. Bilious serosanguineous fluid in the collecting system. Output appears to be unimpeded. No diarrhea. No rash. Left antecubital fossa IV site erythema Has resolved. Objective Data Vital Signs Vital Signs: Vital Signs - 24 hr 01/31/25 12:00 01/31/25 14:00 01/31/25 16:00 Temperature 97.6 F Pulse Rate 83 81 78 Respiratory Rate 16 Blood Pressure 142/87 H Pulse Oximetry 96 Oxygen Delivery Oxygen Flow Rate 01/31/25 20:00 01/31/25 20:46 01/31/25 21:00 Temperature 97.6 F Pulse Rate 82 80 Respiratory Rate 20 Blood Pressure 148/81 H Pulse Oximetry 97 97 Oxygen Delivery Nasal Cannula Oxygen Flow Rate 2 02/01/25 00:00 02/01/25 01:33 02/01/25 04:00 Temperature Pulse Rate 78 82 Respiratory Rate Blood Pressure Pulse Oximetry 97 Oxygen Delivery Nasal Cannula Oxygen Flow Rate 4 02/01/25 04:36 02/01/25 08:00 02/01/25 08:36 Temperature 97.6 F Pulse Rate 84 86 70 Respiratory Rate 18 Blood Pressure 146/86 H Pulse Oximetry 91 Oxygen Delivery Oxygen Flow Rate Intake/Output Intake/Output: Intake & Output 01/29/25 01/30/25 01/31/25 02/01/25 23:59 23:59 23:59 23:59 Intake Total 4032.5 2930 1610 1070 Output Total 2350 1360 2010 1250 Balance 1682.5 1570 400 180 Meds/Results Medications: Active Medications Generic Name Dose Route Start Last Admin Trade Name Freq PRN Reason Stop Dose Admin Acetaminophen 650 mg 01/21/25 02:19 01/21/25 09:30 Acetaminophen 325 Mg Tablet PO 650 mg Q4H PRN Administration Mild Pain (1-3) or Fever Apixaban 5 mg 01/28/25 21:00 02/01/25 08:37 Apixaban 5 Mg Tablet PO 5 mg Q12HR DREAD Administration Fish Oil 1 gm 01/21/25 09:00 02/01/25 08:36 [place] 3 Polyunsat Fatty Acids 1 Gm Cap PO 1 gm DAILY DREAD Administration Fluticasone Propionate 2 spray 01/23/25 21:00 02/01/25 08:36 Fluticasone Propionate 0.05% Na Spr 16 Gm Btl (*Bkc) NASAL 2 spray Q12HR DREAD Administration Guaifenesin 1,200 mg 01/25/25 21:00 02/01/25 08:36 Guaifenesin 12 Hr 600 Mg Tabcr PO 1,200 mg Q12HR DREAD Administration Ampicillin Sodium/Sulbactam 100 mls @ 200 mls/hr 01/29/25 13:30 02/01/25 05:49 Sodium 3 gm/ Sodium Chloride IVPB Infused Q6HR DREAD Infusion Metoprolol Succinate 25 mg 01/22/25 09:00 02/01/25 08:36 Metoprolol Succinate Ext Rel 25 Mg Tabcr PO 25 mg QAM DREAD Administration Morphine Sulfate 2 mg 01/25/25 09:42 01/25/25 23:41 Morphine Sulfate (*Crx) 2 Mg/Ml Inj IV PUSH 2 mg Q3H PRN Administration Pain Rated 7-10 Ondansetron HCl 4 mg 01/21/25 02:19 Ondansetron Inj 4 Mg/2 Ml Vial IV PUSH Q4H PRN Nausea Pantoprazole Sodium 40 mg 01/30/25 21:00 02/01/25 08:37 Pantoprazole 40 Mg Tablet PO 40 mg Q12HR DREAD Administration Zolpidem Tartrate 2.5 mg 01/29/25 10:15 01/31/25 20:56 Zolpidem Tartrate (*Crx) 2.5 Mg Tablet PO 2.5 mg HS PRN Administration Insomnia Radiology Results: ITS Impressions Chest/Abdomen/Pelvis CTA 01/21/25 08:52 Impression: Distended gallbladder with suspected mild pericholecystic inflammatory change, suspicious for acute cholecystitis. Correlate clinically. Consider ultrasound and/or HIDA scan for further evaluation as indicated. Mild bibasilar pulmonary edema/atelectasis. Upper Quadrant Ultrasound 01/21/25 12:09 IMPRESSION: Limited evaluation of the pancreas secondary to overlying bowel gas. Layering sludge within the distended gallbladder. Borderline gallbladder wall thickening without pericholecystic fluid. Trace surrounding inflammatory change on CT examination performed approximately 12 hours earlier with indeterminate findings on ultrasound examination. If clinical suspicion persists for acalculous cholecystitis, HIDA scan would provide additional information. Hepatobiliary Scan Nuclear Medicine 01/23/25 10:21 IMPRESSION: 1. Nonvisualization of the gallbladder and the 30 minutes following morphine administration consistent with acute cholecystitis. Chest CT 01/24/25 18:49 IMPRESSION: 1. Bilateral lower lobe airspace consolidation which may represent pneumonia and/or atelectasis. 2: Dilated gallbladder with wall thickening, pericystic cholecystic phlegmonous change and possible associated abscess involving the margin of the liver. Findings compatible with acute cholecystitis with sequela. 3: Small pleural effusions. 4: Nonobstructive left nephrolithiasis. Cholecystostomy 01/25/25 14:15 IMPRESSION: 1. Successful ultrasound-guided cholecystostomy tube placement. 2. 50 mL bile was sent for aerobic, anaerobic, and fungal cultures. 3. The catheter will be managed by Dr. Huang. A catheter cholangiogram may be performed not less than 48 hours after tube placement if clinically indicated to assess cystic duct patency. If cholecystectomy is not eventually performed and the infectious episode has resolved, the tube may be removed over a guidewire, preferably not less than 3 weeks after placement to allow time for a mature catheter tract to form to prevent bile leakage and peritonitis. Chest X-Ray 01/28/25 08:38 Impression: 1: Right basilar airspace disease may represent atelectasis or pneumonia. No significant change. 2: Subsegmental left basilar atelectasis. Abdomen CT 01/30/25 13:42 IMPRESSION: 1. Likely acute or chronic cholecystitis with percutaneous cholecystostomy tube in expected position. 2. Decrease in size of a 4.4 x 2.8 x 2.1 cm fluid collection positioned between the gallbladder, the gastric antrum and the inferior aspect of the left hepatic lobe which appears to communicate with the gallbladder through one of a couple defects in the wall of the gallbladder. 3. Small right and very small left pleural effusions with consolidation the depe ndent lower lobes, right greater than left with appearance favoring atelectasis over pneumonia. 4. Mild central periportal edema and minimal perihepatic ascites. 5. Wall thickening at the gastric antrum and at the hepatic flexure the colon which likely reactive related to the adjacent acute cholecystitis. Labs Labs: Laboratory Results - last 24 hr 02/01/25 04:29 WBC 11.6 H RBC 3.83 L Hgb 11.9 L Hct 35.8 L MCV 93.5 MCH 31.1 MCHC 33.2 RDW 13.9 Plt Count 290 MPV 9.3 Sodium 133 L Potassium 3.2 L Chloride 100 Carbon Dioxide 28 Anion Gap 5 BUN 22 H Creatinine 1.68 H Estim Creat Clear Calc 47 Estimated GFR 40 L Glucose 113 H Calcium 7.6 L Total Bilirubin 1.2 AST 58 ALT 65 H Alkaline Phosphatase 91 Total Protein 5.7 L Albumin 2.6 L
[2025-02-01] MEDS: CALCIUM CARBONATE (TUMS) 500 MG (200 MG ELEMENTAL) 400 MG PO (21:15)
[2025-02-01] MEDS: ZOLPIDEM TARTRATE (*CRX) 2.5 MG TABLET PO (21:17)
[2025-02-02] VITALS (17 sets, daily range): BP systolic 132–148; BP diastolic 74–86; PULSE 72–112; RESP 14–16; TEMP 36.5–36.9; O2SAT 92–95
[2025-02-02 05:07] LABS: Hematocrit 38.8 % (42.0-52.0); Hemoglobin 13.0 g/dL (14.0-18.0); Mean Corpuscular HGB Conc 33.5 g/dl (32-36); Mean Corpuscular Hemoglobin 31.0 pg (26-34); Mean Corpuscular Volume 92.4 fl (80-100); Platelet Count Result 314 k/mm3 (150-375); Red Blood Count 4.20 M/mm3 (4.6-6.20); White Blood Count 18.2 K/mm3 (4.5-10.0)
[2025-02-02 05:10] LABS: Alanine Aminotransferase 255 U/L (6-50); Albumin Level 2.8 g/dL (3.5-5.1); Alkaline Phosphatase 542 U/L (38-126); Anion Gap 8 mmol/L (4-12); Aspartate Amino Transferase 426 U/L (17-59); Bilirubin,Total 3.2 mg/dL (0.2-1.3); Blood Urea Nitrogen 22 mg/dL (9-20); Calcium 7.9 mg/dL (8.4-10.2); Carbon Dioxide 28 mmol/L (22-30); Chloride 99 mmol/L (98-107); Estimated CRCL calculation 46 ml/min; Estimated Glomerular Filt Rate 39; Glucose 141 mg/dL (65-110); Potassium 3.3 mmol/L (3.4-5.0); Sodium 135 mmol/L (137-145); Total Protein 6.3 g/dL (6.3-8.2)
[2025-02-02 07:37] LABS: Hematocrit 36.6 % (42.0-52.0); Hemoglobin 12.3 g/dL (14.0-18.0); Mean Corpuscular HGB Conc 33.6 g/dl (32-36); Mean Corpuscular Hemoglobin 30.8 pg (26-34); Mean Corpuscular Volume 91.5 fl (80-100); Platelet Count Result 300 k/mm3 (150-375); Red Blood Count 4.00 M/mm3 (4.6-6.20); White Blood Count 18.2 K/mm3 (4.5-10.0)
[2025-02-02] MEDS: OMEGA 3 POLYUNSAT FATTY ACIDS 1 GM CAP PO (08:20)
[2025-02-02] MEDS: PANTOPRAZOLE 40 MG TABLET PO ×2 (08:20→21:20)
[2025-02-02] MEDS: FLUTICASONE PROPIONATE 0.05% NA SPR 16 GM BTL (*BKC) 2 SPRAY NASAL ×2 (08:20→21:21)
[2025-02-02] MEDS: APIXABAN 5 MG TABLET PO ×2 (08:20→21:20)
[2025-02-02] MEDS: guaiFENesin 12 HR 600 MG TABCR 1200 MG PO ×2 (08:20→21:20)
[2025-02-02] MEDS: METOPROLOL SUCCINATE EXT REL 25 MG TABCR PO (08:21)
--- NOTE | 2025-02-02 09:59 | PM.IMPN ---
Progress Note: A&P Assessment and Plan (1) Severe sepsis: Code(s): A41.9 - Sepsis, unspecified organism; R65.20 - Severe sepsis without septic shock Status: Acute (2) Multifocal pneumonia: Code(s): J18.8 - Other pneumonia, unspecified organism Status: Acute (3) Colitis: Code(s): K52.9 - Noninfective gastroenteritis and colitis, unspecified Status: Acute (4) Acute renal failure due to rhabdomyolysis: Code(s): N17.9 - Acute kidney failure, unspecified; M62.82 - Rhabdomyolysis Status: Acute (5) Transaminitis: Status: Acute (6) Acute dehydration: Code(s): E86.0 - Dehydration Status: Acute (7) Atrial fibrillation with rapid ventricular response: Code(s): I48.91 - Unspecified atrial fibrillation Status: Acute (8) GERD (gastroesophageal reflux disease): Qualifiers: Esophagitis presence: esophagitis presence not specified Qualified Code(s): K21.9 - Gastro-esophageal reflux disease without esophagitis Code(s): K21.9 - Gastro-esophageal reflux disease without esophagitis Status: Acute (9) Elevated troponin: Code(s): R79.89 - Other specified abnormal findings of blood chemistry Status: Acute (10) Memory impairment: Code(s): R41.3 - Other amnesia Status: Acute Plan Assessment and Plan (1) Severe sepsis: vital signs sable and within normal limits From Cholecystitis Status post meropenem and Zosyn Restarted Unasyn on 02/02 Discontinue Amoxicillin/Clavulanate PO QD Drainage cultures positive for pansensitive E coli in the aerobic specimen. Anaerobic culture negative. Gallbladder culture showed pansensitive E coli Monitor vitals Repeat CT abdomen due to concern of abscess on CT chest performed on 01/24 which shows Decrease in size of a 4.4 x 2.8 x 2.1 cm fluid collection positioned between the gallbladder, the gastric antrum and the inferior aspect of the left hepatic lobe (2) Multifocal pneumonia: CT chest reviewed S/p Levaquin, vanc discontinued as MRSA is negative Restart Unasyn Discontinue Augmentin Monitor sputum Same as above (3) Colitis: Now on Unasyn (4) Acute renal failure due to rhabdomyolysis: Due to fall Continue IV hydration Echocardiogram pending Cr 1.59 from 2.04 Monitor I and O (5) Transaminitis, improving Improving, being managed for cholecystitis Monitor LFTs (6) Acute dehydration: Continue IV fluids (7) Atrial fibrillation with rapid ventricular response: Started on amiodarone On metoprolol 25 mg p.o. q.d. and Eliquis ECHO reviewed (8) GERD (gastroesophageal reflux disease): K21.9 - Gastro-esophageal reflux disease without esophagitis (9) Elevated troponin: Possibly due to rhabdomyolysis ECHO 50-55%, no regional wall motion abnormalities Cardiology noted no further intervention if no regional wall motion abnormalities Cardiology on board (10) Memory impairment: Code(s): R41.3 - Other amnesia Status: Acute E coli Acute cholecystitis HIDA scan showed acute cholecystitis Gall bladder culture grew pansensitive E coli GI evaluated and no concern for CBD obstruction that will require ERCP S/p Per Cholecystostomy Initially Gen surgery okay with the discharge with Cholecystostomy tube ID following Stool brown and Hb stable and GI bleed ruled out Gi evaluated and recommended to monitor for now monitor Acute hypoxemic respiratory failure Patient on room air at baseline now on 3L down from 5L CT chest reviewed and continue abx as above Discussed with Pulmonology this morning, and he recommended Home oxygen eval monitor Plan Code status: Full code DVT prophylaxis: On Eliquis Subjective Date/time seen: 02/02/25 09:59 Interval history: WBC and LFT's increased. Discussed with ID. Agrees with restarting Unasyn. Patient will be evaluated through telemedicine on Tuesday by ID. Discontinued Augmentin Review of Systems Review of Systems: Review of systems limited due to the patient's clinical condition and chronic hearing loss. All systems reviewed & are unremarkable except as noted in HPI and below ROS unobtainable: Yes unobtainable due to mental status Constitutional: Constitutional: Reports as per HPI and Reports no additional constitutional complaints Eyes: Eyes: Reports no additional eye complaints ENT: Reports system reviewed and no additional complaints, except as documented and Reports as per HPI Cardiovascular: Cardiovascular: Reports as per HPI, Reports no additional cardiovascular complaints, Denies chest pain and Denies dyspnea Respiratory: Respiratory: Reports no additional respiratory complaints, Denies cough and Denies dyspnea Gastrointestinal: Gastrointestinal: Reports as per HPI and Reports no additional gastrointestinal complaints Musculoskeletal: Musculoskeletal: Reports no additional musculoskeletal complaints and Reports as per HPI Integumentary/Breasts: Skin/Breast: Reports as per HPI Neurologic: Reports system reviewed and no additional complaints, except as documented and Reports confusion Psychiatric: Psychiatric: Reports no additional psychiatric complaints, Reports as per HPI and Reports confusion Endocrine: Endocrine: Reports no additional endocrine complaints Hematologic/Lymphatic: Hematologic/Lymphatic: Reports no additional hematologic/lymphatic complaints Allergic/Immunologic: Allergic/Immunologic: Reports no additional allergic/immunologic complaints Exam Narrative: Weight 115.8 kg BMI 31.1 Const: General: cooperative, healthy appearing, comfortable, no acute distress, well developed, alert, awake, confusion and overweight Nutritional Appearance: overweight Orientation/consciousness: oriented to person, oriented to place, oriented to time, patient oriented x3 and confusion Other: Acutely ill-appearing, appears stated age, well-developed well-nourished HENMT: Head: normal to inspection, normocephalic and atraumatic Ears: hearing grossly normal bilaterally Mouth: Yes Normal oral and palatal mucosa present and Yes moist mucous membranes Other: Mucous membranes are dry, no oral pharyngeal erythema, head is normocephalic atraumatic Eyes: General: appearance normal, both eyes and all related structures Conjunctivae: conjunctivae normal Sclera: sclerae normal Pupils: Equal, round and reactive pupils present Other: Pupils are equal and reactive, mild scleral icterus, no conjunctival pallor, extraocular movements intact Neck: Neck: normal visual inspection, supple and no JVD Carotids: normal carotid upstroke Other: No JVD, no lymphadenopathy Chest: Chest palpation & inspection: normal inspection of the chest Resp: Effort & Inspection: normal respiratory effort and able to speak in complete sentences Auscultation: clear to auscultation bilaterally, crackles, no rales, no rhonchi, no wheezes and lung sounds not diminished Other: Marked tachypnea with respiratory rate in the mid 30s, accessory muscle use with abdominal respirations Cardio: Jugular venous distension: no JVD Rate: regular rate Rhythm: regular rhythm Heart sounds: S1 normal heart sound present, S2 normal heart sound present and no murmurs Other: Irregularly irregular, tachycardic, 2+ bilateral radial pedal pulses, no JVD GI: Inspection: normal to inspection, non-distended, obesity and other (Pigtail catheter now draining green bile) Auscultation: normal bowel sounds and normoactive bowel sounds Rectal Exam: deferred Other: Markedly tender in the right upper quadrant area, abdomen was sent initially distended but on repeat evaluation after Armenta catheter lower abdomen is much softer, normoactive bowel sounds, no tympany : Other: Armenta catheter was placed was at bedside patient had turbid coke colored urine about 250 mL Skin: General skin exam: normal color and no rashes or lesions noted Other: Hot to touch, jaundice, 3-4 second cap refill Neuro: General: oriented to person, oriented to place, oriented to time, patient oriented x3 and confusion Cranial nerves: Yes Equal, round and reactive pupils present Speech: normal speech Other: Alert oriented to person, place and month confused as to the year thought the year was 2021 speech is clear, chronic hearing loss, no gross motor deficits noted on exam no facial asymmetry Extrem: General: normal to inspection, no clubbing, cyanosis or edema, no calf tenderness and no edema Other: No clubbing, cyanosis or edema, moves all extremities equally, 5/5 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 Psych: Appearance: grossly normal and well kempt Mental Status: mental status grossly normal Affect: normal affect Other: Appropriately anxious, otherwise pleasant and cooperative Objective Data Vital Signs Vital Signs: Vital Signs - 24 hr 02/01/25 12:00 02/01/25 13:18 02/01/25 14:00 Temperature 97.3 F L Pulse Rate 71 86 82 Respiratory Rate 16 18 Blood Pressure 132/80 Pulse Oximetry 96 95 Oxygen Delivery Nasal Cannula Oxygen Flow Rate 2 02/01/25 16:00 02/01/25 19:59 02/01/25 20:00 Temperature Pulse Rate 79 83 Respiratory Rate Blood Pressure Pulse Oximetry 90 Oxygen Delivery Room Air Oxygen Flow Rate 02/01/25 21:00 02/01/25 22:05 02/02/25 00:00 Temperature 97.8 F Pulse Rate 95 106 H Respiratory Rate 16 Blood Pressure 161/69 H Pulse Oximetry 91 Oxygen Delivery Room Air Oxygen Flow Rate 02/02/25 04:00 02/02/25 05:55 02/02/25 08:14 Temperature 98.4 F Pulse Rate 112 H 100 Respiratory Rate 14 Blood Pressure 146/86 H Pulse Oximetry 93 92 Oxygen Delivery Nasal Cannula Oxygen Flow Rate 4 02/02/25 08:21 Temperature Pulse Rate 97 Respiratory Rate Blood Pressure Pulse Oximetry Oxygen Delivery Oxygen Flow Rate Intake/Output Intake/Output: Intake & Output 01/30/25 01/31/25 02/01/25 02/02/25 23:59 23:59 23:59 23:59 Intake Total 293 1610 1890 670 Output Total 1359 2009 175 7162 Balance 0429 -024 -759 -589 Meds/Results Medications: Active Medications Generic Name Dose Route Start Last Admin Trade Name Freq PRN Reason Stop Dose Admin Acetaminophen 650 mg 01/21/25 02:19 01/21/25 09:30 Acetaminophen 325 Mg Tablet PO 650 mg Q4H PRN Administration Mild Pain (1-3) or Fever Apixaban 5 mg 01/28/25 21:00 02/02/25 08:20 Apixaban 5 Mg Tablet PO 5 mg Q12HR DREAD Administration Calcium Carbonate 400 mg 02/01/25 20:00 02/01/25 21:15 Calcium Carbonate (Tums) 500 Mg (200 Mg Elemental) PO 400 mg Q6H PRN Administration Indigestion Fish Oil 1 gm 01/21/25 09:00 02/02/25 08:20 [place] 3 Polyunsat Fatty Acids 1 Gm Cap PO 1 gm DAILY DREDA Administration Fluticasone Propionate 2 spray 01/23/25 21:00 02/02/25 08:20 Fluticasone Propionate 0.05% Na Spr 16 Gm Btl (*Bkc) NASAL 2 spray Q12HR DREAD Administration Guaifenesin 1,200 mg 01/25/25 21:00 02/02/25 08:20 Guaifenesin 12 Hr 600 Mg Tabcr PO 1,200 mg Q12HR DREAD Administration Ampicillin Sodium/Sulbactam 100 mls @ 200 mls/hr 02/02/25 09:55 Sodium 3 gm/ Sodium Chloride IVPB Q6H DREAD Metoprolol Succinate 25 mg 01/22/25 09:00 02/02/25 08:21 Metoprolol Succinate Ext Rel 25 Mg Tabcr PO 25 mg QAM DREAD Administration Morphine Sulfate 2 mg 01/25/25 09:42 01/25/25 23:41 Morphine Sulfate (*Crx) 2 Mg/Ml Inj IV PUSH 2 mg Q3H PRN Administration Pain Rated 7-10 Ondansetron HCl 4 mg 01/21/25 02:19 Ondansetron Inj 4 Mg/2 Ml Vial IV PUSH Q4H PRN Nausea Pantoprazole Sodium 40 mg 01/30/25 21:00 08/30/25 08:20 Pantoprazole 40 Mg Tablet PO 40 mg Q12HR DREAD Administration Zolpidem Tartrate 2.5 mg 01/29/25 10:15 02/01/25 21:17 Zolpidem Tartrate (*Crx) 2.5 Mg Tablet PO 2.5 mg HS PRN Administration Insomnia Radiology Results: ITS Impressions Chest/Abdomen/Pelvis CTA 01/21/25 08:52 Impression: Distended gallbladder with suspected mild pericholecystic inflammatory change, suspicious for acute cholecystitis. Correlate clinically. Consider ultrasound and/or HIDA scan for further evaluation as indicated. Mild bibasilar pulmonary edema/atelectasis. Upper Quadrant Ultrasound 01/21/25 12:09 IMPRESSION: Limited evaluation of the pancreas secondary to overlying bowel gas. Layering sludge within the distended gallbladder. Borderline gallbladder wall thickening without pericholecystic fluid. Trace surrounding inflammatory change on CT examination performed approximately 12 hours earlier with indeterminate findings on ultrasound examination. If clinical suspicion persists for acalculous cholecystitis, HIDA scan would provide additional information. Hepatobiliary Scan Nuclear Medicine 01/23/25 10:21 IMPRESSION: 1. Nonvisualization of the gallbladder and the 30 minutes following morphine administration consistent with acute cholecystitis. Chest CT 01/24/25 18:49 IMPRESSION: 1. Bilateral lower lobe airspace consolidation which may represent pneumonia and/or atelectasis. 2: Dilated gallbladder with wall thickening, pericystic cholecystic phlegmonous change and possible associated abscess involving the margin of the liver. Findings compatible with acute cholecystitis with sequela. 3: Small pleural effusions. 4: Nonobstructive left nephrolithiasis. Cholecystostomy 01/25/25 14:15 IMPRESSION: 1. Successful ultrasound-guided cholecystostomy tube placement. 2. 50 mL bile was sent for aerobic, anaerobic, and fungal cultures. 3. The catheter will be managed by Dr. Huang. A catheter cholangiogram may be performed not less than 48 hours after tube placement if clinically indicated to assess cystic duct patency. If cholecystectomy is not eventually performed and the infectious episode has resolved, the tube may be removed over a guidewire, preferably not less than 3 weeks after placement to allow time for a mature catheter tract to form to prevent bile leakage and peritonitis. Chest X-Ray 01/28/25 08:38 Impression: 1: Right basilar airspace disease may represent atelectasis or pneumonia. No significant change. 2: Subsegmental left basilar atelectasis. Abdomen CT 01/30/25 13:42 IMPRESSION: 1. Likely acute or chronic cholecystitis with percutaneous cholecystostomy tube in expected position. 2. Decrease in size of a 4.4 x 2.8 x 2.1 cm fluid collection positioned between the gallbladder, the gastric antrum and the inferior aspect of the left hepatic lobe which appears to communicate with the gallbladder through one of a couple defects in the wall of the gallbladder. 3. Small right and very small left pleural effusions with consolidation the dependent lower lobes, right greater than left with appearance favoring atelectasis over pneumonia. 4. Mild central periportal edema and minimal perihepatic ascites. 5. Wall thickening at the gastric antrum and at the hepatic flexure the colon which likely reactive related to the adjacent acute cholecystitis. Labs Labs: Laboratory Results - last 24 hr 02/02/25 02/02/25 04:22 07:32 WBC 18.2 H 18.2 H RBC 4.20 L 4.00 L Hgb 13.0 L 12.3 L Hct 38.8 L 36.6 L MCV 92.4 91.5 MCH 31.0 30.8 MCHC 33.5 33.6 RDW 13.6 13.6 Plt Count 314 300 MPV 9.6 8.9 Sodium 135 L Potassium 3.3 L Chloride 99 Carbon Dioxide 28 Anion Gap 8 BUN 22 H Creatinine 1.70 H Estim Creat Clear Calc 46 Estimated GFR 39 L Glucose 141 H Calcium 7.9 L Total Bilirubin 3.2 H AST 426 H ALT 255 H Alkaline Phosphatase 542 H Total Protein 6.3 Albumin 2.8 L Quality VTE Prophylaxis VTE prophylaxis: pharmacologic ordered (Heparin GGT per protocol) Hospitalist MIPS Advance Care Plan I have confirmed that the patient's Advanced Care Plan is present, code status is documented, or surrogate decision maker is listed in patient medical record.: Yes Medication Reconciliation I have utilized all available resources to obtain, update and review the patients current medications (includes all prescriptions, OTC, herbals, cannabis, and nutritional supplements).: Yes
--- NOTE | 2025-02-02 13:00 | PC.NURSE ---
Dr. Montelongo notified of decline in patient's condition. went from room air last night to 4L O2, increased bloody output out of drain and WBC/ALT/AST/alk phos high.
--- NOTE | 2025-02-02 13:12 | P.PNGS_ITS ---
Progress Note: A&P Assessment and Plan (1) Transaminitis: Status: Acute Assessment and Plan: LFTs increased from yesterday,, unclear as to why this is the case. Not symptomatic. (2) Acute cholecystitis: Code(s): K81.0 - Acute cholecystitis Status: Acute Assessment and Plan: Cholecystostomy tube placed 01/25/2025. Cholecystitis has improved although LFTs are increased and white blood cell count is increased today. Patient had abdominal pain yesterday but none today or now. CT scan 3 days ago suggests possible collection between the gallbladder and the stomach with communication to the gallbladder. Will repeat CT scan at this time to see if there has been any changes in this collection. On previous CT scan it was smaller. Repeat labs in a.m.. Recommend return to IV antibiotics. Was just started on Augmentin yesterday. (3) History of percutaneous insertion of cholecystostomy tube: Code(s): Z98.890 - Other specified postprocedural states Status: Acute Assessment and Plan: In good position per CT scan done 3 days ago. 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 This per request of the hospitalist physician. Patient's white blood cell count has increased, cholecystostomy tube output looks more bloody, LFTs have increased. He is still eating well but had a lot of abdominal pain last night per the patient. No abdominal pain right now. He had a CT scan of the abdomen and pelvis 3 days ago which showed the cholecystostomy tube to be in good position but there was a fluid collection of 4.4 x 2 x 2 cm between the gallbladder and the antrum of the stomach as well as the left lobe of the liver. This fluid collection did appear to communicate with the gallbladder on the CT scan. It was also noted that this fluid collection on the CT scan was decreased from previous CT scan. Patient's white blood cell count has increased to 18,200. Liver function tests have increased with bilirubin up to 3.2, AST increased to 426, ALT increased to 255 and alkaline phosphatase increased to 542. These labs were all normal yesterday except the ALT was slightly elevated at 65. Serum creatinine has been slightly rising over the last 4 days but no significant jumps with today's value 1.7. No differential has been done on CBC the last 3 days. On 01/30, differential was improving relative to the previous 2 days. Currently the patient is very comfortable, although he did have abdominal pain last night he is not having any today and feels good. He complains of being bored. Review of Systems Review of Systems: All systems reviewed & are unremarkable except as noted in HPI and below (HPI) Exam Const: General: comfortable, alert and awake GI: Inspection: non-distended, obesity and other (Blood tinged bile from pigtail catheter) GI Palp: Yes Soft to palpation, No Tenderness to palpation present (GI), No Guarding due to palpation present (GI), No Hernia present, No Palpable mass present and No Rebound tenderness present Auscultation: normal bowel sounds Other: 300 cc per pigtail catheter yesterday, 7 0 cc since midnight today. Objective Data Vital Signs Vital Signs: Vital Signs - 24 hr 02/01/25 13:18 02/01/25 14:00 02/01/25 16:00 Temperature 36.3 C L Pulse Rate 86 82 79 Respiratory Rate 16 18 Blood Pressure 132/80 Pulse Oximetry 96 95 Oxygen Delivery Nasal Cannula Oxygen Flow Rate 2 02/01/25 19:59 02/01/25 20:00 02/01/25 21:00 Temperature Pulse Rate 83 Respiratory Rate Blood Pressure Pulse Oximetry 90 Oxygen Delivery Room Air Room Air Oxygen Flow Rate 02/01/25 22:05 02/02/25 00:00 02/02/25 04:00 Temperature 36.6 C Pulse Rate 95 106 H 112 H Respiratory Rate 16 Blood Pressure 161/69 H Pulse Oximetry 91 Oxygen Delivery Oxygen Flow Rate 02/02/25 05:55 02/02/25 08:03 02/02/25 08:14 Temperature 36.9 C Pulse Rate 100 103 H Respiratory Rate 14 Blood Pressure 146/86 H Pulse Oximetry 93 92 Oxygen Delivery Nasal Cannula Oxygen Flow Rate 4 02/02/25 08:20 02/02/25 08:21 02/02/25 11:20 Temperature Pulse Rate 97 Respiratory Rate Blood Pressure Pulse Oximetry 92 94 Oxygen Delivery Nasal Cannula Nasal Cannula Oxygen Flow Rate 4 4 02/02/25 12:00 Temperature Pulse Rate 80 Respiratory Rate Blood Pressure Pulse Oximetry Oxygen Delivery Oxygen Flow Rate Intake/Output Intake/Output: Intake & Output 01/30/25 01/31/25 02/01/25 02/02/25 23:59 23:59 23:59 23:59 Intake Total 293 1610 1890 670 Output Total 1360 2009 089 9063 Balance 5730 -400 -860 -800 Meds/Results Medications: Active Medications Generic Name Dose Route Start Last Admin Trade Name Freq PRN Reason Stop Dose Admin Acetaminophen 650 mg 01/21/25 02:19 01/21/25 09:30 Acetaminophen 325 Mg Tablet PO 650 mg Q4H PRN Administration Mild Pain (1-3) or Fever Apixaban 5 mg 01/28/25 21:00 02/02/25 08:20 Apixaban 5 Mg Tablet PO 5 mg Q12HR DREAD Administration Calcium Carbonate 400 mg 02/01/25 20:00 02/01/25 21:15 Calcium Carbonate (Tums) 500 Mg (200 Mg Elemental) PO 400 mg Q6H PRN Administration Indigestion Fish Oil 1 gm 01/21/25 09:00 02/02/25 08:20 [place] 3 Polyunsat Fatty Acids 1 Gm Cap PO 1 gm DAILY DREAD Administration Fluticasone Propionate 2 spray 01/23/25 21:00 02/02/25 08:20 Fluticasone Propionate 0.05% Na Spr 16 Gm Btl (*Bkc) NASAL 2 spray Q12HR DREAD Administration Guaifenesin 1,200 mg 01/25/25 21:00 02/02/25 08:20 Guaifenesin 12 Hr 600 Mg Tabcr PO 1,200 mg Q12HR DREAD Administration Ampicillin Sodium/Sulbactam 100 mls @ 200 mls/hr 02/02/25 12:00 Sodium 3 gm/ Sodium Chloride IVPB Q6H DREAD Metoprolol Succinate 25 mg 01/22/25 09:00 02/02/25 08:21 Metoprolol Succinate Ext Rel 25 Mg Tabcr PO 25 mg QAM DREAD Administration Morphine Sulfate 2 mg 01/25/25 09:42 01/25/25 23:41 Morphine Sulfate (*Crx) 2 Mg/Ml Inj IV PUSH 2 mg Q3H PRN Administration Pain Rated 7-10 Ondansetron HCl 4 mg 01/21/25 02:19 Ondansetron Inj 4 Mg/2 Ml Vial IV PUSH Q4H PRN Nausea Pantoprazole Sodium 40 mg 01/30/25 21:00 02/02/25 08:20 Pantoprazole 40 Mg Tablet PO 40 mg Q12HR DREAD Administration Zolpidem Tartrate 2.5 mg 01/29/25 10:15 02/01/25 21:17 Zolpidem Tartrate (*Crx) 2.5 Mg Tablet PO 2.5 mg HS PRN Administration Insomnia Radiology Results: ITS Impressions Chest/Abdomen/Pelvis CTA 01/21/25 08:52 Impression: Distended gallbladder with suspected mild pericholecystic inflammatory change, suspicious for acute cholecystitis. Correlate clinically. Consider ultrasound and/or HIDA scan for further evaluation as indicated. Mild bibasilar pulmonary edema/atelectasis. Upper Quadrant Ultrasound 01/21/25 12:09 IMPRESSION: Limited evaluation of the pancreas secondary to overlying bowel gas. Layering sludge within the distended gallbladder. Borderline gallbladder wall thickening without pericholecystic fluid. Trace surrounding inflammatory change on CT examination performed approximately 12 hours earlier with indeterminate findings on ultrasound examination. If clinical suspicion persists for acalculous cholecystitis, HIDA scan would provide additional information. Hepatobiliary Scan Nuclear Medicine 01/23/25 10:21 IMPRESSION: 1. Nonvisualization of the gallbladder and the 30 minutes following morphine administration consistent with acute cholecystitis. Chest CT 01/24/25 18:49 IMPRESSION: 1. Bilateral lower lobe airspace consolidation which may represent pneumonia and/or atelectasis. 2: Dilated gallbladder with wall thickening, pericystic cholecystic phlegmonous change and possible associated abscess involving the margin of the liver. Findings compatible with acute cholecystitis with sequela. 3: Small pleural effusions. 4: Nonobstructive left nephrolithiasis. Cholecystostomy 01/25/25 14:15 IMPRESSION: 1. Successful ultrasound-guided cholecystostomy tube placement. 2. 50 mL bile was sent for aerobic, anaerobic, and fungal cultures. 3. The catheter will be managed by Dr. Huang. A catheter cholangiogram may be performed not less than 48 hours after tube placement if clinically indicated to assess cystic duct patency. If cholecystectomy is not eventually performed and the infectious episode has resolved, the tube may be removed over a guidewire, preferably not less than 3 weeks after placement to allow time for a mature catheter tract to form to prevent bile leakage and peritonitis. Chest X-Ray 01/28/25 08:38 Impression: 1: Right basilar airspace disease may represent atelectasis or pneumonia. No significant change. 2: Subsegmental left basilar atelectasis. Abdomen CT 01/30/25 13:42 IMPRESSION: 1. Likely acute or chronic cholecystitis with percutaneous cholecystostomy tube in expected position. 2. Decrease in size of a 4.4 x 2.8 x 2.1 cm fluid collection positioned between the gallbladder, the gastric antrum and the inferior aspect of the left hepatic lobe which appears to communicate with the gallbladder through one of a couple defects in the wall of the gallbladder. 3. Small right and very small left pleural effusions with consolidation the dependent lower lobes, right greater than left with appearance favoring atelectasis over pneumonia. 4. Mild central periportal edema and minimal perihepatic ascites. 5. Wall thickening at the gastric antrum and at the hepatic flexure the colon which likely reactive related to the adjacent acute cholecystitis. Labs Labs: Laboratory Results - last 24 hr 02/02/25 02/02/25 04:22 07:32 WBC 18.2 H 18.2 H RBC 4.20 L 4.00 L Hgb 13.0 L 12.3 L Hct 38.8 L 36.6 L MCV 92.4 91.5 MCH 31.0 30.8 MCHC 33.5 33.6 RDW 13.6 13.6 Plt Count 314 300 MPV 9.6 8.9 Sodium 135 L Potassium 3.3 L Chloride 99 Carbon Dioxide 28 Anion Gap 8 BUN 22 H Creatinine 1.70 H Estim Creat Clear Calc 46 Estimated GFR 39 L Glucose 141 H Calcium 7.9 L Total Bilirubin 3.2 H AST 426 H ALT 255 H Alkaline Phosphatase 542 H Total Protein 6.3 Albumin 2.8 L
[2025-02-02] MEDS: AMPICILLIN SODIUM/SULBACTAM 3 GM in SODIUM CHLORIDE 0.9% IV 100 ML 200 ML IVPB ×3 (13:56→23:13)
[2025-02-02] MEDS: POTASSIUM CHLORIDE 20 MEQ ER TABLET 40 MEQ PO (13:57)
[2025-02-02] MEDS: ZOLPIDEM TARTRATE (*CRX) 2.5 MG TABLET PO (21:20)
[2025-02-03] VITALS (14 sets, daily range): BP systolic 119–138; BP diastolic 70–79; PULSE 75–94; RESP 16–20; TEMP 36.5–36.8; O2SAT 94–95
[2025-02-03 04:48] LABS: Hematocrit 34.0 % (42.0-52.0); Hemoglobin 11.2 g/dL (14.0-18.0); Immature Granulocyte Percent A 3.1 % (0-0.5); Lymphocytes Absolute Auto 1.59 K/mm3 (0.9-3.2); Mean Corpuscular HGB Conc 32.9 g/dl (32-36); Mean Corpuscular Hemoglobin 30.9 pg (26-34); Mean Corpuscular Volume 93.9 fl (80-100); Nucleated Red Blood Cells Absolute Auto 0.000 K/mm3 (0.0-0.012); Nucleated Red Blood Cells Perc 0.0 % (0.0-0.2); Platelet Count Result 264 k/mm3 (150-375); Red Blood Count 3.62 M/mm3 (4.6-6.20); White Blood Count 8.3 K/mm3 (4.5-10.0)
[2025-02-03 05:08] LABS: Alanine Aminotransferase 178 U/L (6-50); Albumin Level 2.5 g/dL (3.5-5.1); Alkaline Phosphatase 393 U/L (38-126); Anion Gap 6 mmol/L (4-12); Aspartate Amino Transferase 166 U/L (17-59); Bilirubin,Total 1.7 mg/dL (0.2-1.3); Blood Urea Nitrogen 22 mg/dL (9-20); CRP 6.5 mg/dL (<1.0); Calcium 7.7 mg/dL (8.4-10.2); Carbon Dioxide 26 mmol/L (22-30); Chloride 100 mmol/L (98-107); Estimated CRCL calculation 50 ml/min; Estimated Glomerular Filt Rate 43; Glucose 114 mg/dL (65-110); Lipase 220 U/L (23-300); Potassium 3.3 mmol/L (3.4-5.0); Sodium 132 mmol/L (137-145); Total Protein 5.8 g/dL (6.3-8.2)
[2025-02-03 05:13] LABS: INR 1.4; Prothrombin Time 17.0 Seconds (11.1-14.7)
[2025-02-03 05:14] LABS: Partial Thromboplastin Time 38.7 Seconds (22.3-36.8)
[2025-02-03] MEDS: AMPICILLIN SODIUM/SULBACTAM 3 GM in SODIUM CHLORIDE 0.9% IV 100 ML 200 ML IVPB ×4 (05:29→23:34)
--- NOTE | 2025-02-03 08:30 | PM.IMPN ---
Progress Note: A&P Assessment and Plan (1) Severe sepsis: Code(s): A41.9 - Sepsis, unspecified organism; R65.20 - Severe sepsis without septic shock Status: Acute (2) Multifocal pneumonia: Code(s): J18.8 - Other pneumonia, unspecified organism Status: Acute (3) Colitis: Code(s): K52.9 - Noninfective gastroenteritis and colitis, unspecified Status: Acute (4) Acute renal failure due to rhabdomyolysis: Code(s): N17.9 - Acute kidney failure, unspecified; M62.82 - Rhabdomyolysis Status: Acute (5) Transaminitis: Status: Acute (6) Acute dehydration: Code(s): E86.0 - Dehydration Status: Acute (7) Atrial fibrillation with rapid ventricular response: Code(s): I48.91 - Unspecified atrial fibrillation Status: Acute (8) GERD (gastroesophageal reflux disease): Qualifiers: Esophagitis presence: esophagitis presence not specified Qualified Code(s): K21.9 - Gastro-esophageal reflux disease without esophagitis Code(s): K21.9 - Gastro-esophageal reflux disease without esophagitis Status: Acute (9) Elevated troponin: Code(s): R79.89 - Other specified abnormal findings of blood chemistry Status: Acute (10) Memory impairment: Code(s): R41.3 - Other amnesia Status: Acute Plan Assessment and Plan (1) Severe sepsis: vital signs sable and within normal limits From Cholecystitis Status post meropenem and Zosyn Restarted Unasyn on 02/02 Discontinue Amoxicillin/Clavulanate PO QD Drainage cultures positive for pansensitive E coli in the aerobic specimen. Anaerobic culture negative. Gallbladder culture showed pansensitive E coli Monitor vitals Repeat CT abdomen due to concern of abscess on CT chest performed on 01/24 which shows Decrease in size of a 4.4 x 2.8 x 2.1 cm fluid collection positioned between the gallbladder, the gastric antrum and the inferior aspect of the left hepatic lobe (2) Multifocal pneumonia: CT chest reviewed S/p Levaquin, vanc discontinued as MRSA is negative Restart Unasyn Discontinue Augmentin Monitor sputum Same as above (3) Colitis: Now on Unasyn (4) Acute renal failure due to rhabdomyolysis: Due to fall Continue IV hydration Echocardiogram pending Cr 1.59 from 2.04 Monitor I and O (5) Transaminitis, improving Improving, being managed for cholecystitis Monitor LFTs (6) Acute dehydration: Continue IV fluids (7) Atrial fibrillation with rapid ventricular response: Started on amiodarone On metoprolol 25 mg p.o. q.d. and Eliquis ECHO reviewed (8) GERD (gastroesophageal reflux disease): K21.9 - Gastro-esophageal reflux disease without esophagitis (9) Elevated troponin: Possibly due to rhabdomyolysis ECHO 50-55%, no regional wall motion abnormalities Cardiology noted no further intervention if no regional wall motion abnormalities Cardiology on board (10) Memory impairment: Code(s): R41.3 - Other amnesia Status: Acute E coli Acute cholecystitis HIDA scan showed acute cholecystitis Gall bladder culture grew pansensitive E coli GI evaluated and no concern for CBD obstruction that will require ERCP S/p Per Cholecystostomy Initially Gen surgery okay with the discharge with Cholecystostomy tube ID following Stool brown and Hb stable and GI bleed ruled out Gi evaluated and recommended to monitor for now monitor Acute hypoxemic respiratory failure Patient on room air at baseline now on 3L down from 5L CT chest reviewed and continue abx as above Discussed with Pulmonology this morning, and he recommended Home oxygen eval monitor Plan Code status: Full code DVT prophylaxis: On Eliquis Subjective Date/time seen: 02/03/25 08:30 Interval history: No acute events overnight. Patient WBC has been improved after restarting Unasyn. Id will evaluate the patient tomorrow Review of Systems Review of Systems: Review of systems limited due to the patient's clinical condition and chronic hearing loss. All systems reviewed & are unremarkable except as noted in HPI and below ROS unobtainable: Yes unobtainable due to mental status Constitutional: Constitutional: Reports as per HPI and Reports no additional constitutional complaints Eyes: Eyes: Reports no additional eye complaints ENT: Reports system reviewed and no additional complaints, except as documented and Reports as per HPI Cardiovascular: Cardiovascular: Reports as per HPI, Reports no additional cardiovascular complaints, Denies chest pain and Denies dyspnea Respiratory: Respiratory: Reports no additional respiratory complaints, Denies cough and Denies dyspnea Gastrointestinal: Gastrointestinal: Reports as per HPI and Reports no additional gastrointestinal complaints Musculoskeletal: Musculoskeletal: Reports no additional musculoskeletal complaints and Reports as per HPI Integumentary/Breasts: Skin/Breast: Reports as per HPI Neurologic: Reports system reviewed and no additional complaints, except as documented and Reports confusion Psychiatric: Psychiatric: Reports no additional psychiatric complaints, Reports as per HPI and Reports confusion Endocrine: Endocrine: Reports no additional endocrine complaints Hematologic/Lymphatic: Hematologic/Lymphatic: Reports no additional hematologic/lymphatic complaints Allergic/Immunologic: Allergic/Immunologic: Reports no additional allergic/immunologic complaints Exam Narrative: Weight 115.8 kg BMI 31.1 Const: General: cooperative, healthy appearing, comfortable, no acute distress, well developed, alert, awake, confusion and overweight Nutritional Appearance: overweight Orientation/consciousness: oriented to person, oriented to place, oriented to time, patient oriented x3 and confusion Other: Acutely ill-appearing, appears stated age, well-developed well-nourished HENMT: Head: normal to inspection, normocephalic and atraumatic Ears: hearing grossly normal bilaterally Mouth: Yes Normal oral and palatal mucosa present and Yes moist mucous membranes Other: Mucous membranes are dry, no oral pharyngeal erythema, head is normocephalic atraumatic Eyes: General: appearance normal, both eyes and all related structures Conjunctivae: conjunctivae normal Sclera: sclerae normal Pupils: Equal, round and reactive pupils present Other: Pupils are equal and reactive, mild scleral icterus, no conjunctival pallor, extraocular movements intact Neck: Neck: normal visual inspection, supple and no JVD Carotids: normal carotid upstroke Other: No JVD, no lymphadenopathy Chest: Chest palpation & inspection: normal inspection of the chest Resp: Effort & Inspection: normal respiratory effort and able to speak in complete sentences Auscultation: clear to auscultation bilaterally, crackles, no rales, no rhonchi, no wheezes and lung sounds not diminished Other: Marked tachypnea with respiratory rate in the mid 30s, accessory muscle use with abdominal respirations Cardio: Jugular venous distension: no JVD Rate: regular rate Rhythm: regular rhythm Heart sounds: S1 normal heart sound present, S2 normal heart sound present and no murmurs Other: Irregularly irregular, tachycardic, 2+ bilateral radial pedal pulses, no JVD GI: Inspection: normal to inspection, non-distended, obesity and other (Pigtail catheter now draining green bile) Auscultation: normal bowel sounds and normoactive bowel sounds Rectal Exam: deferred Other: Markedly tender in the right upper quadrant area, abdomen was sent initially distended but on repeat evaluation after Armenta catheter lower abdomen is much softer, normoactive bowel sounds, no tympany : Other: Armenta catheter was placed was at bedside patient had turbid coke colored urine about 250 mL Skin: General skin exam: normal color and no rashes or lesions noted Other: Hot to touch, jaundice, 3-4 second cap refill Neuro: General: oriented to person, oriented to place, oriented to time, patient oriented x3 and confusion Cranial nerves: Yes Equal, round and reactive pupils present Speech: normal speech Other: Alert oriented to person, place and month confused as to the year thought the year was 2021 speech is clear, chronic hearing loss, no gross motor deficits noted on exam no facial asymmetry Extrem: General: normal to inspection, no clubbing, cyanosis or edema, no calf tenderness and no edema Other: No clubbing, cyanosis or edema, moves all extremities equally, 5/5 crossing guard strength bilateral Psych: Appearance: grossly normal and well kempt Mental Status: mental status grossly normal Affect: normal affect Other: Appropriately anxious, otherwise pleasant and cooperative Objective Data Vital Signs Vital Signs: Vital Signs - 24 hr 02/02/25 11:20 02/02/25 12:00 02/02/25 14:00 Temperature 98.2 F Pulse Rate 80 92 Respiratory Rate 16 Blood Pressure 148/74 H Pulse Oximetry 94 93 Oxygen Delivery Nasal Cannula Oxygen Flow Rate 4 02/02/25 16:30 02/02/25 17:36 02/02/25 19:30 Temperature Pulse Rate 76 Respiratory Rate Blood Pressure Pulse Oximetry 93 95 Oxygen Delivery Nasal Cannula Nasal Cannula Oxygen Flow Rate 4 4 02/02/25 19:50 02/02/25 20:00 02/02/25 21:08 Temperature Pulse Rate 77 79 Respiratory Rate Blood Pressure Pulse Oximetry 93 95 Oxygen Delivery Nasal Cannula Nasal Cannula Oxygen Flow Rate 3 3 02/02/25 22:00 02/03/25 00:00 02/03/25 04:00 Temperature 97.7 F Pulse Rate 72 75 78 Respiratory Rate 16 Blood Pressure 132/80 Pulse Oximetry 95 Oxygen Delivery Oxygen Flow Rate 02/03/25 06:19 02/03/25 08:00 Temperature 98.1 F Pulse Rate 77 94 Respiratory Rate 16 Blood Pressure 119/70 Pulse Oximetry 94 Oxygen Delivery Oxygen Flow Rate Intake/Output Intake/Output: Intake & Output 01/31/25 02/01/25 02/02/25 02/03/25 23:59 23:59 23:59 23:59 Intake Total 1610 6950 1410 500 Output Total 2009 3232 2122 2210 Balance -419 -860 -956 -600 Meds/Results Medications: Active Medications Generic Name Dose Route Start Last Admin Trade Name Freq PRN Reason Stop Dose Admin Acetaminophen 650 mg 01/21/25 02:19 01/21/25 09:30 Acetaminophen 325 Mg Tablet PO 650 mg Q4H PRN Administration Mild Pain (1-3) or Fever Apixaban 5 mg 01/28/25 21:00 02/02/25 21:20 Apixaban 5 Mg Tablet PO 5 mg Q12HR DREAD Administration Calcium Carbonate 400 mg 02/01/25 20:00 02/01/25 21:15 Calcium Carbonate (Tums) 500 Mg (200 Mg Elemental) PO 400 mg Q6H PRN Administration Indigestion Fish Oil 1 gm 01/21/25 09:00 02/02/25 08:20 [place] 3 Polyunsat Fatty Acids 1 Gm Cap PO 1 gm DAILY DREAD Administration Fluticasone Propionate 2 spray 01/23/25 21:00 02/02/25 21:21 Fluticasone Propionate 0.05% Na Spr 16 Gm Btl (*Bkc) NASAL 2 spray Q12HR DREAD Administration Guaifenesin 1,200 mg 01/25/25 21:00 02/02/25 21:20 Guaifenesin 12 Hr 600 Mg Tabcr PO 1,200 mg Q12HR DREAD Administration Ampicillin Sodium/Sulbactam 100 mls @ 200 mls/hr 02/02/25 12:00 02/03/25 05:59 Sodium 3 gm/ Sodium Chloride IVPB Infused Q6H DREAD Infusion Metoprolol Succinate 25 mg 01/22/25 09:00 02/02/25 08:21 Metoprolol Succinate Ext Rel 25 Mg Tabcr PO 25 mg QAM DREAD Administration Morphine Sulfate 2 mg 01/25/25 09:42 01/25/25 23:41 Morphine Sulfate (*Crx) 2 Mg/Ml Inj IV PUSH 2 mg Q3H PRN Administration Pain Rated 7-10 Ondansetron HCl 4 mg 01/21/25 02:19 Ondansetron Inj 4 Mg/2 Ml Vial IV PUSH Q4H PRN Nausea Pantoprazole Sodium 40 mg 01/30/25 21:00 02/02/25 21:20 Pantoprazole 40 Mg Tablet PO 40 mg Q12HR DREAD Administration Zolpidem Tartrate 2.5 mg 01/29/25 10:15 02/02/25 21:20 Zolpidem Tartrate (*Crx) 2.5 Mg Tablet PO 2.5 mg HS PRN Administration Insomnia Radiology Results: ITS Impressions Chest/Abdomen/Pelvis CTA 01/21/25 08:52 Impression: Distended gallbladder with suspected mild pericholecystic inflammatory change, suspicious for acute cholecystitis. Correlate clinically. Consider ultrasound and/or HIDA scan for further evaluation as indicated. Mild bibasilar pulmonary edema/atelectasis. Upper Quadrant Ultrasound 01/21/25 12:09 IMPRESSION: Limited evaluation of the pancreas secondary to overlying bowel gas. Layering sludge within the distended gallbladder. Borderline gallbladder wall thickening without pericholecystic fluid. Trace surrounding inflammatory change on CT examination performed approximately 12 hours earlier with indeterminate findings on ultrasound examination. If clinical suspicion persists for acalculous cholecystitis, HIDA scan would provide additional information. Hepatobiliary Scan Nuclear Medicine 01/23/25 10:21 IMPRESSION: 1. Nonvisualization of the gallbladder and the 30 minutes following morphine administration consistent with acute cholecystitis. Chest CT 01/24/25 18:49 IMPRESSION: 1. Bilateral lower lobe airspace consolidation which may represent pneumonia and/or atelectasis. 2: Dilated gallbladder with wall thickening, pericystic cholecystic phlegmonous change and possible associated abscess involving the margin of the liver. Findings compatible with acute cholecystitis with sequela. 3: Small pleural effusions. 4: Nonobstructive left nephrolithiasis. Cholecystostomy 01/25/25 14:15 IMPRESSION: 1. Successful ultrasound-guided cholecystostomy tube placement. 2. 50 mL bile was sent for aerobic, anaerobic, and fungal cultures. 3. The catheter will be managed by Dr. Huang. A catheter cholangiogram may be performed not less than 48 hours after tube placement if clinically indicated to assess cystic duct patency. If cholecystectomy is not eventually performed and the infectious episode has resolved, the tube may be removed over a guidewire, preferably not less than 3 weeks after placement to allow time for a mature catheter tract to form to prevent bile leakage and peritonitis. Chest X-Ray 01/28/25 08:38 Impression: 1: Right basilar airspace disease may represent atelectasis or pneumonia. No significant change. 2: Subsegmental left basilar atelectasis. Abdomen CT 01/30/25 13:42 IMPRESSION: 1. Likely acute or chronic cholecystitis with percutaneous cholecystostomy tube in expected position. 2. Decrease in size of a 4.4 x 2.8 x 2.1 cm fluid collection positioned between the gallbladder, the gastric antrum and the inferior aspect of the left hepatic lobe which appears to communicate with the gallbladder through one of a couple defects in the wall of the gallbladder. 3. Small right and very small left pleural effusions with consolidation the dependent lower lobes, right greater than left with appearance favoring atelectasis over pneumonia. 4. Mild central periportal edema and minimal perihepatic ascites. 5. Wall thickening at the gastric antrum and at the hepatic flexure the colon which likely reactive related to the adjacent acute cholecystitis. Abdomen/Pelvis CT 02/02/25 15:46 IMPRESSION: 1. Cholecystostomy tube within the gallbladder with probable cholecystitis. There is a small amount of pericholecystic fluid noted with a small loculated focus adjacent to the distal stomach with probable reactive thickening of the gastric wall in this location, distinction from an ulcerative process within the stomach itself however is not excluded. Repeat exam with intravenous and oral contrast is suggested. The findings appear improved compared to the previous study. 2. Incidental findings above Labs Labs: Laboratory Results - last 24 hr 02/03/25 04:24 WBC 8.3 RBC 3.62 L Hgb 11.2 L Hct 34.0 L MCV 93.9 MCH 30.9 MCHC 32.9 RDW 13.7 Plt Count 264 MPV 9.3 Immature Gran % (Auto) 3.1 H Neut % (Auto) 63.4 Lymph % (Auto) 19.2 [place] % (Auto) 10.9 H Eos % (Auto) 2.4 Baso % (Auto) 1.0 Lymph # (Auto) 1.59 [place] # (Auto) 0.9 H Eos # (Auto) 0.2 Baso # (Auto) 0.1 Abs Immat Gran (auto) 0.26 H Absolute Neuts (auto) 5.2 Absolute Nucleated RBC 0.000 Nucleated RBC % 0.0 PT 17.0 H INR 1.4 APTT 38.7 H Sodium 132 L Potassium 3.3 L Chloride 100 Carbon Dioxide 26 Anion Gap 6 BUN 22 H Creatinine 1.58 H Estim Creat Clear Calc 50 Estimated GFR 43 L Glucose 114 H Calcium 7.7 L Total Bilirubin 1.7 H AST 166 H ALT 178 H Alkaline Phosphatase 393 H C-Reactive Protein 6.5 H Total Protein 5.8 L Albumin 2.5 L Lipase 220 Quality VTE Prophylaxis VTE prophylaxis: pharmacologic ordered (Heparin GGT per protocol) Hospitalist MIPS Advance Care Plan I have confirmed that the patient's Advanced Care Plan is present, code status is documented, or surrogate decision maker is listed in patient medical record.: Yes Medication Reconciliation I have utilized all available resources to obtain, update and review the patients current medications (includes all prescriptions, OTC, herbals, cannabis, and nutritional supplements).: Yes
[2025-02-03] MEDS: guaiFENesin 12 HR 600 MG TABCR 1200 MG PO ×2 (09:00→20:57)
[2025-02-03] MEDS: APIXABAN 5 MG TABLET PO ×2 (09:01→20:57)
[2025-02-03] MEDS: OMEGA 3 POLYUNSAT FATTY ACIDS 1 GM CAP PO (09:01)
[2025-02-03] MEDS: PANTOPRAZOLE 40 MG TABLET PO (09:01)
[2025-02-03] MEDS: METOPROLOL SUCCINATE EXT REL 25 MG TABCR PO (09:02)
[2025-02-03] MEDS: FLUTICASONE PROPIONATE 0.05% NA SPR 16 GM BTL (*BKC) 2 SPRAY NASAL ×2 (09:02→20:56)
--- NOTE | 2025-02-03 13:45 | PM.PNGS ---
Progress Note: A&P Assessment and Plan (1) Transaminitis: Status: Acute Assessment and Plan: LFTs bumped up yesterday but are decreased today, although still not normal. Possibly patient passed a stone into and through his bile duct. Discussed with hospitalist. Recheck again tomorrow. Will get cholecystogram. (2) Acute cholecystitis: Code(s): K81.0 - Acute cholecystitis Status: Acute Assessment and Plan: Cholecystostomy tube placed 01/25/2025. Patient seemingly had resolving acute cholecystitis but yesterday had increased LFTs, white blood cell count went up to 18,000, he had severe right upper quadrant abdominal pain the night of 02/01/2025. Pain resolved and has not come back. Today's labs look better throughout. White blood cell count now normal. LFTs are improved. Patient eating and having no abdominal pain. Cholecystostomy tube draining bloody bile. Augmentin was changed back to Unasyn. We will continue the Unasyn today but if continues to improve, back to Augmentin probably tomorrow. CT scan from yesterday showed that the fluid collection between the gallbladder and the stomach was much smaller. The gallbladder wall was thickened but the cholecystostomy tube appeared to be in good position. CT scan looked better than previous CT done 01/30/2025. (3) History of percutaneous insertion of cholecystostomy tube: Code(s): Z98.890 - Other specified postprocedural states Status: Acute Assessment and Plan: Placed 01/25/2025. Will get catheter cholangiogram. (4) Elevated serum creatinine: Code(s): R79.89 - Other specified abnormal findings of blood chemistry Status: Chronic Assessment and Plan: Slowly increasing last 4 days But today it is decreased from 1.70-1.58. Continue to monitor. 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(s): Z79.899 - Other termite control servicer (current) drug therapy Status: Chronic Assessment and Plan: Takes apixaban for atrial fibrillation Subjective Subjective Date/Time Seen: 02/03/25 13:45 Patient reports: no new complaints, feels better, pain is less ( abdominal pain from Tuesday has not come back), tolerating a regular diet, bowel movement and afebrile Review of Systems Review of Systems: All systems reviewed & are unremarkable except as noted in HPI and below ( HPI) Exam Const: General: comfortable, alert and awake Nutritional Appearance: well nourished Orientation/consciousness: No confusion GI: Inspection: non-distended and incision ( pigtail catheter draining bloody bile) GI Palp: Yes Soft to palpation, No Tenderness to palpation present (GI), No Guarding due to palpation present (GI), No Hernia present and No Palpable mass present Auscultation: normal bowel sounds Objective Data Vital Signs Vital Signs: Vital Signs - 24 hr 02/02/25 14:00 02/02/25 16:30 02/02/25 17:36 Temperature 36.8 C Pulse Rate 92 76 Respiratory Rate 16 Blood Pressure 148/74 H Pulse Oximetry 93 93 Oxygen Delivery Nasal Cannula Oxygen Flow Rate 4 02/02/25 19:30 02/02/25 19:50 02/02/25 20:00 Temperature Pulse Rate 77 79 Respiratory Rate Blood Pressure Pulse Oximetry 95 93 Oxygen Delivery Nasal Cannula Nasal Cannula Oxygen Flow Rate 4 3 02/02/25 21:08 02/02/25 22:00 02/03/25 00:00 Temperature 36.5 C Pulse Rate 72 75 Respiratory Rate 16 Blood Pressure 132/80 Pulse Oximetry 95 95 Oxygen Delivery Nasal Cannula Oxygen Flow Rate 3 02/03/25 04:00 02/03/25 06:19 02/03/25 08:00 Temperature 36.7 C Pulse Rate 78 77 94 Respiratory Rate 16 Blood Pressure 119/70 Pulse Oximetry 94 Oxygen Delivery Oxygen Flow Rate 02/03/25 08:33 02/03/25 09:00 02/03/25 09:02 Temperature Pulse Rate 91 Respiratory Rate Blood Pressure Pulse Oximetry 94 94 Oxygen Delivery Nasal Cannula Nasal Cannula Oxygen Flow Rate 3 2 02/03/25 12:00 02/03/25 12:25 Temperature Pulse Rate 86 83 Respiratory Rate 20 Blood Pressure Pulse Oximetry 95 Oxygen Delivery Room Air Oxygen Flow Rate Intake/Output Intake/Output: Intake & Output 01/31/25 02/01/25 02/02/25 02/03/25 23:59 23:59 23:59 23:59 Intake Total 1610 1890 1414 980 Output Total 2009 2749 6500 1100 Balance -400 -860 -956 -120 Meds/Results Medications: Active Medications Generic Name Dose Route Start Last Admin Trade Name Freq PRN Reason Stop Dose Admin Acetaminophen 650 mg 01/21/25 02:19 01/21/25 09:30 Acetaminophen 325 Mg Tablet PO 650 mg Q4H PRN Administration Mild Pain (1-3) or Fever Apixaban 5 mg 01/28/25 21:00 02/03/25 09:01 Apixaban 5 Mg Tablet PO 5 mg Q12HR DREAD Administration Calcium Carbonate 400 mg 02/01/25 20:00 02/01/25 21:15 Calcium Carbonate (Tums) 500 Mg (200 Mg Elemental) PO 400 mg Q6H PRN Administration Indigestion Fish Oil 1 gm 01/21/25 09:00 02/03/25 09:01 [place] 3 Polyunsat Fatty Acids 1 Gm Cap PO 1 gm DAILY DREDA Administration Fluticasone Propionate 2 spray 01/23/25 21:00 02/03/25 09:02 Fluticasone Propionate 0.05% Na Spr 16 Gm Btl (*Bkc) NASAL 2 spray Q12HR DREAD Administration Guaifenesin 1,200 mg 01/25/25 21:00 02/03/25 09:00 Guaifenesin 12 Hr 600 Mg Tabcr PO 1,200 mg Q12HR DREAD Administration Ampicillin Sodium/Sulbactam 100 mls @ 200 mls/hr 02/02/25 12:00 02/03/25 12:42 Sodium 3 gm/ Sodium Chloride IVPB 200 mls/hr Q6H DREAD Administration Metoprolol Succinate 25 mg 01/22/25 09:00 02/03/25 09:02 Metoprolol Succinate Ext Rel 25 Mg Tabcr PO 25 mg QAM DREAD Administration Morphine Sulfate 2 mg 01/25/25 09:42 01/25/25 23:41 Morphine Sulfate (*Crx) 2 Mg/Ml Inj IV PUSH 2 mg Q3H PRN Administration Pain Rated 7-10 Ondansetron HCl 4 mg 01/21/25 02:19 Ondansetron Inj 4 Mg/2 Ml Vial IV PUSH Q4H PRN Nausea Zolpidem Tartrate 2.5 mg 01/29/25 10:15 02/02/25 21:20 Zolpidem Tartrate (*Crx) 2.5 Mg Tablet PO 2.5 mg HS PRN Administration Insomnia Radiology Results: ITS Impressions Chest/Abdomen/Pelvis CTA 01/21/25 08:52 Impression: Distended gallbladder with suspected mild pericholecystic inflammatory change, suspicious for acute cholecystitis. Correlate clinically. Consider ultrasound and/or HIDA scan for further evaluation as indicated. Mild bibasilar pulmonary edema/atelectasis. Upper Quadrant Ultrasound 01/21/25 12:09 IMPRESSION: Limited evaluation of the pancreas secondary to overlying bowel gas. Layering sludge within the distended gallbladder. Borderline gallbladder wall thickening without pericholecystic fluid. Trace surrounding inflammatory change on CT examination performed approximately 12 hours earlier with indeterminate findings on ultrasound examination. If clinical suspicion persists for acalculous cholecystitis, HIDA scan would provide additional information. Hepatobiliary Scan Nuclear Medicine 01/23/25 10:21 IMPRESSION: 1. Nonvisualization of the gallbladder and the 30 minutes following morphine administration consistent with acute cholecystitis. Chest CT 01/24/25 18:49 IMPRESSION: 1. Bilateral lower lobe airspace consolidation which may represent pneumonia and/or atelectasis. 2: Dilated gallbladder with wall thickening, pericystic cholecystic phlegmonous change and possible associated abscess involving the margin of the liver. Findings compatible with acute cholecystitis with sequela. 3: Small pleural effusions. 4: Nonobstructive left nephrolithiasis. Cholecystostomy 01/25/25 14:15 IMPRESSION: 1. Successful ultrasound-guided cholecystostomy tube placement. 2. 50 mL bile was sent for aerobic, anaerobic, and fungal cultures. 3. The catheter will be managed by Dr. Huang. A catheter cholangiogram may be performed not less than 48 hours after tube placement if clinically indicated to assess cystic duct patency. If cholecystectomy is not eventually performed and the infectious episode has resolved, the tube may be removed over a guidewire, preferably not less than 3 weeks after placement to allow time for a mature catheter tract to form to prevent bile leakage and peritonitis. Chest X-Ray 01/28/25 08:38 Impression: 1: Right basilar airspace disease may represent atelectasis or pneumonia. No significant change. 2: Subsegmental left basilar atelectasis. Abdomen CT 01/30/25 13:42 IMPRESSION: 1. Likely acute or chronic cholecystitis with percutaneous cholecystostomy tube in expected position. 2. Decrease in size of a 4.4 x 2.8 x 2.1 cm fluid collection positioned between the gallbladder, the gastric antrum and the inferior aspect of the left hepatic lobe which appears to communicate with the gallbladder through one of a couple defects in the wall of the gallbladder. 3. Small right and very small left pleural effusions with consolidation the dependent lower lobes, right greater than left with appearance favoring atelectasis over pneumonia. 4. Mild central periportal edema and minimal perihepatic ascites. 5. Wall thickening at the gastric antrum and at the hepatic flexure the colon which likely reactive related to the adjacent acute cholecystitis. Abdomen/Pelvis CT 02/02/25 15:46 IMPRESSION: 1. Cholecystostomy tube within the gallbladder with probable cholecystitis. There is a small amount of pericholecystic fluid noted with a small loculated focus adjacent to the distal stomach with probable reactive thickening of the gastric wall in this location, distinction from an ulcerative process within the stomach itself however is not excluded. Repeat exam with intravenous and oral contrast is suggested. The findings appear improved compared to the previous study. 2. Incidental findings above Labs Labs: Laboratory Results - last 24 hr 02/03/25 04:24 WBC 8.3 RBC 3.62 L Hgb 11.2 L Hct 34.0 L MCV 93.9 MCH 30.9 MCHC 32.9 RDW 13.7 Plt Count 264 MPV 9.3 Immature Gran % (Auto) 3.1 H Neut % (Auto) 63.4 Lymph % (Auto) 19.2 [place] % (Auto) 10.9 H Eos % (Auto) 2.4 Baso % (Auto) 1.0 Lymph # (Auto) 1.59 [place] # (Auto) 0.9 H Eos # (Auto) 0.2 Baso # (Auto) 0.1 Abs Immat Gran (auto) 0.26 H Absolute Neuts (auto) 5.2 Absolute Nucleated RBC 0.000 Nucleated RBC % 0.0 PT 17.0 H INR 1.4 APTT 38.7 H Sodium 132 L Potassium 3.3 L Chloride 100 Carbon Dioxide 26 Anion Gap 6 BUN 22 H Creatinine 1.58 H Estim Creat Clear Calc 50 Estimated GFR 43 L Glucose 114 H Calcium 7.7 L Total Bilirubin 1.7 H AST 166 H ALT 178 H Alkaline Phosphatase 393 H C-Reactive Protein 6.5 H Total Protein 5.8 L Albumin 2.5 L Lipase 220
[2025-02-04] VITALS (12 sets, daily range): BP systolic 141–144; BP diastolic 83–89; PULSE 79–89; RESP 18–20; TEMP 36.3–36.9; O2SAT 92–94
[2025-02-04 04:40] LABS: Hematocrit 33.4 % (42.0-52.0); Hemoglobin 11.1 g/dL (14.0-18.0); Immature Granulocyte Percent A 2.0 % (0-0.5); Lymphocytes Absolute Auto 1.47 K/mm3 (0.9-3.2); Mean Corpuscular HGB Conc 33.2 g/dl (32-36); Mean Corpuscular Hemoglobin 31.0 pg (26-34); Mean Corpuscular Volume 93.3 fl (80-100); Nucleated Red Blood Cells Absolute Auto 0.000 K/mm3 (0.0-0.012); Nucleated Red Blood Cells Perc 0.0 % (0.0-0.2); Platelet Count Result 269 k/mm3 (150-375); Red Blood Count 3.58 M/mm3 (4.6-6.20); White Blood Count 9.4 K/mm3 (4.5-10.0)
[2025-02-04] MEDS: AMPICILLIN SODIUM/SULBACTAM 3 GM in SODIUM CHLORIDE 0.9% IV 100 ML 200 ML IVPB ×4 (05:06→23:08)
[2025-02-04 05:09] LABS: Alanine Aminotransferase 113 U/L (6-50); Albumin Level 2.5 g/dL (3.5-5.1); Alkaline Phosphatase 305 U/L (38-126); Anion Gap 6 mmol/L (4-12); Aspartate Amino Transferase 69 U/L (17-59); Bilirubin,Total 0.9 mg/dL (0.2-1.3); Blood Urea Nitrogen 20 mg/dL (9-20); Calcium 7.7 mg/dL (8.4-10.2); Carbon Dioxide 27 mmol/L (22-30); Chloride 101 mmol/L (98-107); Estimated CRCL calculation 43 ml/min; Estimated Glomerular Filt Rate 42; Glucose 107 mg/dL (65-110); Potassium 3.1 mmol/L (3.4-5.0); Sodium 134 mmol/L (137-145); Total Protein 5.7 g/dL (6.3-8.2)
[2025-02-04 08:14] LABS: Magnesium 1.6 mg/dL (1.6-2.3)
[2025-02-04] MEDS: METOPROLOL SUCCINATE EXT REL 25 MG TABCR PO (08:21)
[2025-02-04] MEDS: PANTOPRAZOLE 40 MG TABLET PO (08:21)
[2025-02-04] MEDS: OMEGA 3 POLYUNSAT FATTY ACIDS 1 GM CAP PO (08:22)
[2025-02-04] MEDS: APIXABAN 5 MG TABLET PO ×2 (08:22→21:09)
[2025-02-04] MEDS: guaiFENesin 12 HR 600 MG TABCR 1200 MG PO ×2 (08:22→21:09)
[2025-02-04] MEDS: FLUTICASONE PROPIONATE 0.05% NA SPR 16 GM BTL (*BKC) 2 SPRAY NASAL ×2 (08:22→21:10)
[2025-02-04] MEDS: POTASSIUM CHLORIDE 20 MEQ PACKET (FOR LIQUID) 40 MEQ PO (08:22)
--- NOTE | 2025-02-04 09:41 | P.PNIM_ITS ---
Progress Note: A&P Assessment and Plan (1) Severe sepsis: Code(s): A41.9 - Sepsis, unspecified organism; R65.20 - Severe sepsis without septic shock Status: Acute Assessment and Plan: * vital signs sable and within normal limits * From Cholecystitis * Status post meropenem and Zosyn * Restarted Unasyn on 02/02 * Discontinue Amoxicillin/Clavulanate PO QD * Drainage cultures positive for pansensitive E coli in the aerobic specimen. * Anaerobic culture negative. * Gallbladder culture showed pansensitive E coli * Monitor vitals * Gall bladder drain in place. * Repeat CT abdomen due to concern of abscess on CT chest performed on 01/24 which shows Decrease in size of a 4.4 x 2.8 x 2.1 cm fluid collection positioned between the gallbladder, the gastric antrum and the inferior aspect of the left hepatic lobe (2) Multifocal pneumonia: Code(s): J18.8 - Other pneumonia, unspecified organism Status: Acute Assessment and Plan: * CT chest reviewed * S/p Levaquin, vanc discontinued as MRSA is negative * Restart Unasyn * Discontinue Augmentin * Guaifenesin 1,200 mg PO q 12. * Monitor sputum * May need a home 02 evaluation * Same as above (3) Colitis: Code(s): K52.9 - Noninfective gastroenteritis and colitis, unspecified Status: Acute Assessment and Plan: * Now on Unasyn. (4) Acute renal failure due to rhabdomyolysis: Code(s): N17.9 - Acute kidney failure, unspecified; M62.82 - Rhabdomyolysis Status: Acute Assessment and Plan: * Due to fall * Continue IV hydration * Echocardiogram 01/22/25: Summary 1. Left ventricular systolic function is normal, estimated at 50-55. 2. There is mildly increased left ventricular wall thickness. 3. Left atrial chamber dimension is moderately enlarged. 4. There is mild mitral valve regurgitation. 5. There is no tricuspid valve regurgitation. 6. No pulmonary hypertension, estimated pulmonary arterial systolic pressure is 22 mmHg. 7. There is mild pulmonic regurgitation. * Cr 1.64 * Monitor I and O (5) Transaminitis: Status: Acute Assessment and Plan: * Improving, being managed for cholecystitis * Monitor LFTs (6) Acute dehydration: Code(s): E86.0 - Dehydration Status: Acute Assessment and Plan: * Encourage oral intake. (7) Atrial fibrillation with rapid ventricular response: Code(s): I48.91 - Unspecified atrial fibrillation Status: Acute Assessment and Plan: * Metoprolol 25 mg p.o. q.d. and Eliquis 5 mg PO q 12. (8) GERD (gastroesophageal reflux disease): Qualifiers: Esophagitis presence: esophagitis presence not specified Qualified Code(s): K21.9 - Gastro-esophageal reflux disease without esophagitis Code(s): K21.9 - Gastro-esophageal reflux disease without esophagitis Status: Acute Assessment and Plan: * Pantoprazole 40 mg PO qam. (9) Elevated troponin: Code(s): R79.89 - Other specified abnormal findings of blood chemistry Status: Acute Assessment and Plan: * Possibly due to rhabdomyolysis * ECHO 50-55%, no regional wall motion abnormalities * Cardiology noted no further intervention if no regional wall motion abnormalities * Cardiology saw patient, appreciate recommendations. (10) Memory impairment: Code(s): R41.3 - Other amnesia Status: Acute Assessment and Plan: * E coli Acute cholecystitis * HIDA scan showed acute cholecystitis * Gall bladder culture grew pansensitive E coli * GI evaluated and no concern for CBD obstruction that will require ERCP * S/p Per Cholecystostomy * Initially Gen surgery okay with the discharge with Cholecystostomy tube * ID following * A&Ox3 currently. Subjective Date/time seen: 02/04/25 09:41 Interval history: Patient sitting up in chair. Reports being bored and hoping to go home soon. P atient denies chest pain, palpitations, shortness of breath, headache, nausesa, or vomiting. Reports eating and drinking well. Review of Systems Review of Systems: All systems reviewed & are unremarkable except as noted in HPI and below Exam Const: General: comfortable and no acute distress Resp: Effort & Inspection: normal respiratory effort Auscultation: clear to auscultation bilaterally Cardio: Rate: regular rate Rhythm: regular rhythm Other: Telemetry-SR 84. GI: GI Palp: Yes Soft to palpation Auscultation: normal bowel sounds Other: dalia tube draining bloody bile drainage. Neuro: Speech: normal speech Extrem: General: no pedal edema Psych: Mental Status: mental status grossly normal Affect: normal affect Objective Data Vital Signs Vital Signs: Vital Signs - 24 hr 02/03/25 10:30 02/03/25 12:00 02/03/25 12:25 Temperature Pulse Rate 86 83 Respiratory Rate 20 Blood Pressure Pulse Oximetry 95 Oxygen Delivery Room Air Room Air 02/03/25 14:00 02/03/25 16:00 02/03/25 20:00 Temperature 97.7 F Pulse Rate 84 77 81 Respiratory Rate 17 Blood Pressure 119/79 Pulse Oximetry 94 Oxygen Delivery 02/03/25 20:00 02/03/25 20:07 02/03/25 20:42 Temperature 98.3 F Pulse Rate 81 80 Respiratory Rate 17 20 Blood Pressure 138/79 Pulse Oximetry 95 94 Oxygen Delivery Room Air Room Air 02/04/25 00:00 02/04/25 04:00 02/04/25 05:32 Temperature 98.5 F Pulse Rate 82 86 86 Respiratory Rate 18 Blood Pressure 144/83 H Pulse Oximetry 92 Oxygen Delivery 02/04/25 07:56 02/04/25 07:57 02/04/25 08:21 Temperature Pulse Rate 87 88 Respiratory Rate 18 Blood Pressure Pulse Oximetry 94 Oxygen Delivery Room Air Room Air Intake/Output Intake/Output: Intake & Output 02/01/25 02/02/25 02/03/25 02/04/25 23:59 23:59 23:59 23:59 Intake Total 1890 1414 2092 470 Output Total 9281 2370 2110 1059 Balance -860 -956 -18 -580 Meds/Results Medications: Active Medications Generic Name Dose Route Start Last Admin Trade Name Freq PRN Reason Stop Dose Admin Acetaminophen 650 mg 01/21/25 02:19 01/21/25 09:30 Acetaminophen 325 Mg Tablet PO 650 mg Q4H PRN Administration Mild Pain (1-3) or Fever Apixaban 5 mg 01/28/25 21:00 02/04/25 08:22 Apixaban 5 Mg Tablet PO 5 mg Q12HR DREAD Administration Calcium Carbonate 400 mg 02/01/25 20:00 02/01/25 21:15 Calcium Carbonate (Tums) 500 Mg (200 Mg Elemental) PO 400 mg Q6H PRN Administration Indigestion Fish Oil 1 gm 01/21/25 09:00 02/04/25 08:22 [place] 3 Polyunsat Fatty Acids 1 Gm Cap PO 1 gm DAILY DREAD Administration Fluticasone Propionate 2 spray 01/23/25 21:00 02/04/25 08:22 Fluticasone Propionate 0.05% Na Spr 16 Gm Btl (*Bkc) NASAL 2 spray Q12HR DREAD Administration Guaifenesin 1,200 mg 01/25/25 21:00 02/04/25 08:22 Guaifenesin 12 Hr 600 Mg Tabcr PO 1,200 mg Q12HR DREAD Administration Ampicillin Sodium/Sulbactam 100 mls @ 200 mls/hr 02/02/25 12:00 02/04/25 05:06 Sodium 3 gm/ Sodium Chloride IVPB 200 mls/hr Q6H DREAD Administration Metoprolol Succinate 25 mg 01/22/25 09:00 02/04/25 08:21 Metoprolol Succinate Ext Rel 25 Mg Tabcr PO 25 mg QAM DREAD Administration Ondansetron HCl 4 mg 01/21/25 02:19 Ondansetron Inj 4 Mg/2 Ml Vial IV PUSH Q4H PRN Nausea Pantoprazole Sodium 40 mg 02/04/25 09:00 02/04/25 08:21 Pantoprazole 40 Mg Tablet PO 40 mg QAM DREAD Administration Zolpidem Tartrate 2.5 mg 01/29/25 10:15 02/02/25 21:20 Zolpidem Tartrate (*Crx) 2.5 Mg Tablet PO 2.5 mg HS PRN Administration Insomnia Radiology Results: ITS Impressions Chest/Abdomen/Pelvis CTA 01/21/25 08:52 Impression: Distended gallbladder with suspected mild pericholecystic inflammatory change, suspicious for acute cholecystitis. Correlate clinically. Consider ultrasound and/or HIDA scan for further evaluation as indicated. Mild bibasilar pulmonary edema/atelectasis. Upper Quadrant Ultrasound 01/21/25 12:09 IMPRESSION: Limited evaluation of the pancreas secondary to overlying bowel gas. Layering sludge within the distended gallbladder. Borderline gallbladder wall thickening without pericholecystic fluid. Trace surrounding inflammatory change on CT examination performed approximately 12 hours earlier with indeterminate findings on ultrasound examination. If clinical suspicion persists for acalculous cholecystitis, HIDA scan would provide additional information. Hepatobiliary Scan Nuclear Medicine 01/23/25 10:21 IMPRESSION: 1. Nonvisualization of the gallbladder and the 30 minutes following morphine administration consistent with acute cholecystitis. Chest CT 01/24/25 18:49 IMPRESSION: 1. Bilateral lower lobe airspace consolidation which may represent pneumonia and/or atelectasis. 2: Dilated gallbladder with wall thickening, pericystic cholecystic phlegmonous change and possible associated abscess involving the margin of the liver. Findings compatible with acute cholecystitis with sequela. 3: Small pleural effusions. 4: Nonobstructive left nephrolithiasis. Cholecystostomy 01/25/25 14:15 IMPRESSION: 1. Successful ultrasound-guided cholecystostomy tube placement. 2. 50 mL bile was sent for aerobic, anaerobic, and fungal cultures. 3. The catheter will be managed by Dr. Huang. A catheter cholangiogram may be performed not less than 48 hours after tube placement if clinically indicated to assess cystic duct patency. If cholecystectomy is not eventually performed and the infectious episode has resolved, the tube may be removed over a guidewire, preferably not less than 3 weeks after placement to allow time for a mature catheter tract to form to prevent bile leakage and peritonitis. Chest X-Ray 01/28/25 08:38 Impression: 1: Right basilar airspace disease may represent atelectasis or pneumonia. No significant change. 2: Subsegmental left basilar atelectasis. Abdomen CT 01/30/25 13:42 IMPRESSION: 1. Likely acute or chronic cholecystitis with percutaneous cholecystostomy tube in expected position. 2. Decrease in size of a 4.4 x 2.8 x 2.1 cm fluid collection positioned between the gallbladder, the gastric antrum and the inferior aspect of the left hepatic lobe which appears to communicate with the gallbladder through one of a couple defects in the wall of the gallbladder. 3. Small right and very small left pleural effusions with consolidation the dependent lower lobes, right greater than left with appearance favoring atelectasis over pneumonia. 4. Mild central periportal edema and minimal perihepatic ascites. 5. Wall thickening at the gastric antrum and at the hepatic flexure the colon which likely reactive related to the adjacent acute cholecystitis. Abdomen/Pelvis CT 02/02/25 15:46 IMPRESSION: 1. Cholecystostomy tube within the gallbladder with probable cholecystitis. There is a small amount of pericholecystic fluid noted with a small loculated focus adjacent to the distal stomach with probable reactive thickening of the gastric wall in this location, distinction from an ulcerative process within the stomach itself however is not excluded. Repeat exam with intravenous and oral contrast is suggested. The findings appear improved compared to the previous study. 2. Incidental findings above Labs Labs: Laboratory Results - last 24 hr 02/04/25 03:54 WBC 9.4 RBC 3.58 L Hgb 11.1 L Hct 33.4 L MCV 93.3 MCH 31.0 MCHC 33.2 RDW 13.4 Plt Count 269 MPV 9.6 Immature Gran % (Auto) 2.0 H Neut % (Auto) 69.1 Lymph % (Auto) 15.6 L [place] % (Auto) 10.4 H Eos % (Auto) 1.7 Baso % (Auto) 1.2 Lymph # (Auto) 1.47 [place] # (Auto) 1.0 H Eos # (Auto) 0.2 Baso # (Auto) 0.1 Abs Immat Gran (auto) 0.19 H Absolute Neuts (auto) 6.5 Absolute Nucleated RBC 0.000 Nucleated RBC % 0.0 Sodium 134 L Potassium 3.1 L Chloride 101 Carbon Dioxide 27 Anion Gap 6 BUN 20 Creatinine 1.61 H Estim Creat Clear Calc 43 Estimated GFR 42 L Glucose 107 Calcium 7.7 L Magnesium 1.6 Total Bilirubin 0.9 AST 69 H ALT 113 H Alkaline Phosphatase 305 H Total Protein 5.7 L Albumin 2.5 L Quality VTE Prophylaxis VTE prophylaxis: pharmacologic ordered
[2025-02-04 12:10] LABS: Anion Gap 4 mmol/L (4-12); Blood Urea Nitrogen 19 mg/dL (9-20); Calcium 8.1 mg/dL (8.4-10.2); Carbon Dioxide 29 mmol/L (22-30); Chloride 100 mmol/L (98-107); Estimated CRCL calculation 43 ml/min; Estimated Glomerular Filt Rate 41; Glucose 101 mg/dL (65-110); Potassium 3.6 mmol/L (3.4-5.0); Sodium 133 mmol/L (137-145)
--- NOTE | 2025-02-04 14:13 | PM.PNGS ---
Progress Note: A&P Assessment and Plan (1) Transaminitis: Status: Acute Assessment and Plan: improved again today. Possibly patient passed a stone into and through his bile duct. Will get cholecystogram tomorrow. (2) Acute cholecystitis: Code(s): K81.0 - Acute cholecystitis Status: Acute Assessment and Plan: No further episodes of severe abdominal pain. Cholecystostomy tube draining well. Patient wanting to know when he can go home. (3) History of percutaneous insertion of cholecystostomy tube: Code(s): Z98.890 - Other specified postprocedural states Status: Acute Assessment and Plan: Placed 01/25/2025. Will get catheter cholangiogram tomorrow. (4) Elevated serum creatinine: Code(s): R79.89 - Other specified abnormal findings of blood chemistry Status: Chronic Assessment and Plan: overall better but now about 1.6. Continue to monitor. 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 Subjective Subjective Date/Time Seen: 02/04/25 14:13 Patient reports: no new complaints, pain is less ( No abdominal pain), tolerating a regular diet and afebrile Review of Systems Review of Systems: All systems reviewed & are unremarkable except as noted in HPI and below ( HPI) Exam Const: General: comfortable, alert and awake GI: Inspection: other ( cholecystostomy tube draining bile as expected) GI Palp: Yes Soft to palpation, No Tenderness to palpation present (GI) and No Guarding due to palpation present (GI) Auscultation: normal bowel sounds Objective Data Vital Signs Vital Signs: Vital Signs - 24 hr 02/03/25 16:00 02/03/25 20:00 02/03/25 20:00 Temperature Pulse Rate 77 81 Respiratory Rate Blood Pressure Pulse Oximetry Oxygen Delivery Room Air 02/03/25 20:07 02/03/25 20:42 02/04/25 00:00 Temperature 36.8 C Pulse Rate 81 80 82 Respiratory Rate 17 20 Blood Pressure 138/79 Pulse Oximetry 95 94 Oxygen Delivery Room Air 02/04/25 04:00 02/04/25 05:32 02/04/25 07:56 Temperature 36.9 C Pulse Rate 86 86 87 Respiratory Rate 18 18 Blood Pressure 144/83 H Pulse Oximetry 92 94 Oxygen Delivery Room Air 02/04/25 07:57 02/04/25 08:21 Temperature Pulse Rate 88 Respiratory Rate Blood Pressure Pulse Oximetry Oxygen Delivery Room Air Intake/Output Intake/Output: Intake & Output 02/01/25 02/02/25 02/03/25 02/04/25 23:59 23:59 23:59 23:59 Intake Total 1890 1414 2092 570 Output Total 2750 2370 2119 1056 [facility] -860 -956 -18 -480 Meds/Results Medications: Active Medications Generic Name Dose Route Start Last Admin Trade Name Freq PRN Reason Stop Dose Admin Acetaminophen 650 mg 01/21/25 02:19 01/21/25 09:30 Acetaminophen 325 Mg Tablet PO 650 mg Q4H PRN Administration Mild Pain (1-3) or Fever Apixaban 5 mg 01/28/25 21:00 02/04/25 08:22 Apixaban 5 Mg Tablet PO 5 mg Q12HR DREAD Administration Calcium Carbonate 400 mg 02/01/25 20:00 02/01/25 21:15 Calcium Carbonate (Tums) 500 Mg (200 Mg Elemental) PO 400 mg Q6H PRN Administration Indigestion Fish Oil 1 gm 01/21/25 09:00 02/04/25 08:22 [place] 3 Polyunsat Fatty Acids 1 Gm Cap PO 1 gm DAILY DREAD Administration Fluticasone Propionate 2 spray 01/23/25 21:00 02/04/25 08:22 Fluticasone Propionate 0.05% Na Spr 16 Gm Btl (*Bkc) NASAL 2 spray Q12HR DREAD Administration Guaifenesin 1,200 mg 01/25/25 21:00 02/04/25 08:22 Guaifenesin 12 Hr 600 Mg Tabcr PO 1,200 mg Q12HR DREAD Administration Ampicillin Sodium/Sulbactam 100 mls @ 200 mls/hr 02/02/25 12:00 02/04/25 12:05 Sodium 3 gm/ Sodium Chloride IVPB 200 mls/hr Q6H DREAD Administration Metoprolol Succinate 25 mg 01/22/25 09:00 02/04/25 08:21 Metoprolol Succinate Ext Rel 25 Mg Tabcr PO 25 mg QAM DREAD Administration Ondansetron HCl 4 mg 01/21/25 02:19 Ondansetron Inj 4 Mg/2 Ml Vial IV PUSH Q4H PRN Nausea Pantoprazole Sodium 40 mg 02/04/25 09:00 02/04/25 08:21 Pantoprazole 40 Mg Tablet PO 40 mg QAM DREAD Administration Zolpidem Tartrate 2.5 mg 01/29/25 10:15 02/02/25 21:20 Zolpidem Tartrate (*Crx) 2.5 Mg Tablet PO 2.5 mg HS PRN Administration Insomnia Radiology Results: ITS Impressions Chest/Abdomen/Pelvis CTA 01/21/25 08:52 Impression: Distended gallbladder with suspected mild pericholecystic inflammatory change, suspicious for acute cholecystitis. Correlate clinically. Consider ultrasound and/or HIDA scan for further evaluation as indicated. Mild bibasilar pulmonary edema/atelectasis. Upper Quadrant Ultrasound 01/21/25 12:09 IMPRESSION: Limited evaluation of the pancreas secondary to overlying bowel gas. Layering sludge within the distended gallbladder. Borderline gallbladder wall thickening without pericholecystic fluid. Trace surrounding inflammatory change on CT examination performed approximately 12 hours earlier with indeterminate findings on ultrasound examination. If clinical suspicion persists for acalculous cholecystitis, HIDA scan would provide additional information. Hepatobiliary Scan Nuclear Medicine 01/23/25 10:21 IMPRESSION: 1. Nonvisualization of the gallbladder and the 30 minutes following morphine administration consistent with acute cholecystitis. Chest CT 01/24/25 18:49 IMPRESSION: 1. Bilateral lower lobe airspace consolidation which may represent pneumonia and/or atelectasis. 2: Dilated gallbladder with wall thickening, pericystic cholecystic phlegmonous change and possible associated abscess involving the margin of the liver. Findings compatible with acute cholecystitis with sequela. 3: Small pleural effusions. 4: Nonobstructive left nephrolithiasis. Cholecystostomy 01/25/25 14:15 IMPRESSION: 1. Successful ultrasound-guided cholecystostomy tube placement. 2. 50 mL bile was sent for aerobic, anaerobic, and fungal cultures. 3. The catheter will be managed by Dr. Huang. A catheter cholangiogram may be performed not less than 48 hours after tube placement if clinically indicated to assess cystic duct patency. If cholecystectomy is not eventually performed and the infectious episode has resolved, the tube may be removed over a guidewire, preferably not less than 3 weeks after placement to allow time for a mature catheter tract to form to prevent bile leakage and peritonitis. Chest X-Ray 01/28/25 08:38 Impression: 1: Right basilar airspace disease may represent atelectasis or pneumonia. No significant change. 2: Subsegmental left basilar atelectasis. Abdomen CT 01/30/25 13:42 IMPRESSION: 1. Likely acute or chronic cholecystitis with percutaneous cholecystostomy tube in expected position. 2. Decrease in size of a 4.4 x 2.8 x 2.1 cm fluid collection positioned between the gallbladder, the gastric antrum and the inferior aspect of the left hepatic lobe which appears to communicate with the gallbladder through one of a couple defects in the wall of the gallbladder. 3. Small right and very small left pleural effusions with consolidation the dependent lower lobes, right greater than left with appearance favoring atelectasis over pneumonia. 4. Mild central periportal edema and minimal perihepatic ascites. 5. Wall thickening at the gastric antrum and at the hepatic flexure the colon which likely reactive related to the adjacent acute cholecystitis. Abdomen/Pelvis CT 02/02/25 15:46 IMPRESSION: 1. Cholecystostomy tube within the gallbladder with probable cholecystitis. There is a small amount of pericholecystic fluid noted with a small loculated focus adjacent to the distal stomach with probable reactive thickening of the gastric wall in this location, distinction from an ulcerative process within the stomach itself however is not excluded. Repeat exam with intravenous and oral contrast is suggested. The findings appear improved compared to the previous study. 2. Incidental findings above Labs Labs: Laboratory Results - last 24 hr 02/04/25 02/04/25 03:54 11:52 WBC 9.4 RBC 3.58 L Hgb 11.1 L Hct 33.4 L MCV 93.3 MCH 31.0 MCHC 33.2 RDW 13.4 Plt Count 269 MPV 9.6 Immature Gran % (Auto) 2.0 H Neut % (Auto) 69.1 Lymph % (Auto) 15.6 L [place] % (Auto) 10.4 H Eos % (Auto) 1.7 Baso % (Auto) 1.2 Lymph # (Auto) 1.47 [place] # (Auto) 1.0 H Eos # (Auto) 0.2 Baso # (Auto) 0.1 Abs Immat Gran (auto) 0.19 H Absolute Neuts (auto) 6.5 Absolute Nucleated RBC 0.000 Nucleated RBC % 0.0 Sodium 134 L 133 L Potassium 3.1 L 3.6 Chloride 101 100 Carbon Dioxide 27 29 Anion Gap 6 4 BUN 20 19 Creatinine 1.61 H 1.64 H Estim Creat Clear Calc 43 43 Estimated GFR 42 L 41 L Glucose 107 101 Calcium 7.7 L 8.1 L Magnesium 1.6 Total Bilirubin 0.9 AST 69 H ALT 113 H Alkaline Phosphatase 305 H Total Protein 5.7 L Albumin 2.5 L
[2025-02-04] MEDS: ZOLPIDEM TARTRATE (*CRX) 2.5 MG TABLET PO (21:13)
[2025-02-05] VITALS (11 sets, daily range): BP systolic 146–160; BP diastolic 82–92; PULSE 74–93; RESP 20; TEMP 36.2–36.7; O2SAT 94–96
[2025-02-05 04:47] LABS: Hematocrit 34.3 % (42.0-52.0); Hemoglobin 11.2 g/dL (14.0-18.0); Immature Granulocyte Percent A 1.4 % (0-0.5); Lymphocytes Absolute Auto 1.43 K/mm3 (0.9-3.2); Mean Corpuscular HGB Conc 32.7 g/dl (32-36); Mean Corpuscular Hemoglobin 30.7 pg (26-34); Mean Corpuscular Volume 94.0 fl (80-100); Nucleated Red Blood Cells Absolute Auto 0.000 K/mm3 (0.0-0.012); Nucleated Red Blood Cells Perc 0.0 % (0.0-0.2); Platelet Count Result 264 k/mm3 (150-375); Red Blood Count 3.65 M/mm3 (4.6-6.20); White Blood Count 8.0 K/mm3 (4.5-10.0)
[2025-02-05 05:13] LABS: Alanine Aminotransferase 81 U/L (6-50); Albumin Level 2.6 g/dL (3.5-5.1); Alkaline Phosphatase 292 U/L (38-126); Anion Gap 6 mmol/L (4-12); Aspartate Amino Transferase 43 U/L (17-59); Bilirubin,Total 0.9 mg/dL (0.2-1.3); Blood Urea Nitrogen 17 mg/dL (9-20); Calcium 8.0 mg/dL (8.4-10.2); Carbon Dioxide 26 mmol/L (22-30); Chloride 103 mmol/L (98-107); Estimated CRCL calculation 50 ml/min; Estimated Glomerular Filt Rate 43; Glucose 108 mg/dL (65-110); Magnesium 1.7 mg/dL (1.6-2.3); Potassium 3.3 mmol/L (3.4-5.0); Sodium 135 mmol/L (137-145); Total Protein 6.0 g/dL (6.3-8.2)
[2025-02-05] MEDS: AMPICILLIN SODIUM/SULBACTAM 3 GM in SODIUM CHLORIDE 0.9% IV 100 ML 200 ML IVPB ×4 (06:06→23:53)
--- NOTE | 2025-02-05 09:58 | WPDINFPN2 ---
Progress Note: A&P Assessment and Plan (1) Acute cholecystitis: Code(s): K81.0 - Acute cholecystitis Status: Acute (2) Pericholecystic abscess: Code(s): K81.0 - Acute cholecystitis Status: Acute (3) History of percutaneous insertion of cholecystostomy tube: Code(s): Z98.890 - Other specified postprocedural states Status: Acute (4) Multifocal pneumonia: Code(s): J18.8 - Other pneumonia, unspecified organism Status: Acute (5) Rhabdomyolysis: Code(s): M62.82 - Rhabdomyolysis Status: Acute (6) Transaminitis: Status: Acute (7) Hyperbilirubinemia: Code(s): E80.6 - Other disorders of bilirubin metabolism Status: Acute (8) Acute renal failure due to rhabdomyolysis: Code(s): N17.9 - Acute kidney failure, unspecified; M62.82 - Rhabdomyolysis Status: Acute (9) Atrial fibrillation with rapid ventricular response: Code(s): I48.91 - Unspecified atrial fibrillation Status: Acute (10) Hypoxemia: Code(s): R09.02 - Hypoxemia Status: Acute Plan # Acute cholecystitis with CT evidence of surrounding pericholecystic phlegmonous change and fluid collection suggesting pericholecystic abscess, now status post cholecystostomy tube placement. -- drainage cultures positive for pansensitive E coli in the aerobic specimen. Anaerobic culture negative. -- follow-up CT scan performed 01/30/2025 in response to progressive leukocytosis identifies cholecystostomy tube in proper position, decreased size of gallbladder, and decreased size of pericholecystic abscess. However, recent progressive transaminitis and hyperbilirubinemia in conjunction with leukocytosis prompting repeat CT scan and today's cholangiogram. Cholangiogram identifies medial wall of gallbladder defect with extraluminal spillage of contrast and contrast extending into the cystic duct but no evidence of contrast in the common bile duct. -- currently receiving Unasyn. # Completion of treatment for possible basilar pneumonia. # Acute rhabdomyolysis with WEI after being found down at home. -- normalized CPK. Plan: -- continue Unasyn. Anticipate eventual transition back to oral Augmentin with further clinical improvement. Patient was seen via video telehealth consultation with the assistance of staff. Chart, data, and patient independently reviewed. Patient was located at [facility] while I was located in my [place] office. Received verbal consent from patient. Subjective Date/time seen: 02/05/25 09:58 Interval history: 01/29/2025: Afebrile although white blood cell count increased today to 15.9. no evidence of cholecystostomy tube issues. Overall, patient feels better. 01/30/2025: Afebrile with stable vital signs but white blood cell count again increased now to 16.8. Patient denies specific complaints including new cough, abdominal pain, new discomfort near cholecystostomy tube, diarrhea, or urinary complaints. Left arm IV site with possible early phlebitis. Right arm IV site unremarkable. 01/31/2025: Afebrile and today with decrease in white blood cell count. no new complaints today. CT scan noted and verifies proper position of cholecystostomy tube along with decrease in size of suspected pericholecystic abscess. 02/01/2025: Afebrile and white blood cell count continues to improve, now down to 11.6. clinically doing well. 02/05/2025: Development of leukocytosis and increasing transaminases along with bilirubin and alkaline phosphatase. All of these numbers improved today. Repeat CT scan 02/02 again demonstrating cholecystostomy tube in gallbladder and improvement in prei-Cholecystic fluid collection. Cholangiogram performed today demonstrating defect in the medial wall of the gallbladder resulting in extraluminal spillage of contrast which extends toward the region of the previously noted small abscess cavity located between the gallbladder fundus, the inferior margin of the left hepatic lobe, and the greater curvature of the antrum of the stomach seen on prior CT. Contrast extends into the cystic duct but no evidence of contrast within the common bile duct. Transition back from oral Augmentin to IV Unasyn. Cholecystostomy tube fluid culture 01/25: Pansensitive E coli. Blood cultures 01/30: Negative, final. Review of Systems Review of Systems: Denies cholecystostomy tube site pain. All systems reviewed & are unremarkable except as noted in HPI and below Exam Narrative: He is awake, alert, and interactive. No distress. Normocephalic. No conjunctivitis. Normal respirations. Abdomen not significantly distended. Right cholecystostomy catheter in place without surrounding visible inflammation. No significant tenderness to insertion site palpation. Output appears to be unimpeded. No diarrhea. No rash. Objective Data Vital Signs Vital Signs: Vital Signs - 24 hr 02/04/25 12:00 02/04/25 14:00 02/04/25 16:00 Temperature 97.4 F L Pulse Rate 84 81 79 Respiratory Rate 18 Blood Pressure 141/84 H Pulse Oximetry 93 Oxygen Delivery Fraction of Inspired Oxygen 02/04/25 20:00 02/04/25 20:00 02/04/25 20:19 Temperature 97.6 F Pulse Rate 83 82 82 Respiratory Rate 20 20 Blood Pressure 143/89 H Pulse Oximetry 93 94 Oxygen Delivery Room Air Fraction of Inspired Oxygen 32 02/04/25 20:36 02/05/25 00:00 02/05/25 04:00 Temperature Pulse Rate 83 78 74 Respiratory Rate Blood Pressure Pulse Oximetry 93 Oxygen Delivery Room Air Fraction of Inspired Oxygen 02/05/25 04:10 02/05/25 08:00 02/05/25 08:00 Temperature 97.1 F L Pulse Rate 86 93 Respiratory Rate 20 Blood Pressure 146/82 H Pulse Oximetry 94 96 Oxygen Delivery Room Air Fraction of Inspired Oxygen Intake/Output Intake/Output: Intake & Output 02/02/25 02/03/25 02/04/25 02/05/25 23:59 23:59 23:59 23:59 Intake Total 1414 2092 1350 460 Output Total 2370 2110 1928 1004 Balance -956 -18 -575 -544 Meds/Results Medications: Active Medications Generic Name Dose Route Start Last Admin Trade Name Freq PRN Reason Stop Dose Admin Acetaminophen 650 mg 01/21/25 02:19 01/21/25 09:30 Acetaminophen 325 Mg Tablet PO 650 mg Q4H PRN Administration Mild Pain (1-3) or Fever Apixaban 5 mg 01/28/25 21:00 02/04/25 21:09 Apixaban 5 Mg Tablet PO 5 mg Q12HR DREAD Administration Calcium Carbonate 400 mg 02/01/25 20:00 02/01/25 21:15 Calcium Carbonate (Tums) 500 Mg (200 Mg Elemental) PO 400 mg Q6H PRN Administration Indigestion Fish Oil 1 gm 01/21/25 09:00 02/04/25 08:22 [place] 3 Polyunsat Fatty Acids 1 Gm Cap PO 1 gm DAILY DERAD Administration Fluticasone Propionate 2 spray 01/23/25 21:00 02/04/25 21:10 Fluticasone Propionate 0.05% Na Spr 16 Gm Btl (*Bkc) NASAL 2 spray Q12HR DREAD Administration Guaifenesin 1,200 mg 01/25/25 21:00 02/04/25 21:09 Guaifenesin 12 Hr 600 Mg Tabcr PO 1,200 mg Q12HR DREAD Administration Ampicillin Sodium/Sulbactam 100 mls @ 200 mls/hr 02/02/25 12:00 02/05/25 06:06 Sodium 3 gm/ Sodium Chloride IVPB 200 mls/hr Q6H DREAD Administration Metoprolol Succinate 25 mg 01/22/25 09:00 02/04/25 08:21 Metoprolol Succinate Ext Rel 25 Mg Tabcr PO 25 mg QAM DREAD Administration Ondansetron HCl 4 mg 01/21/25 02:19 Ondansetron Inj 4 Mg/2 Ml Vial IV PUSH Q4H PRN Nausea Pantoprazole Sodium 40 mg 02/04/25 09:00 02/04/25 08:21 Pantoprazole 40 Mg Tablet PO 40 mg QAM DREAD Administration Zolpidem Tartrate 2.5 mg 01/29/25 10:15 02/04/25 21:13 Zolpidem Tartrate (*Crx) 2.5 Mg Tablet PO 2.5 mg HS PRN Administration Insomnia Radiology Results: ITS Impressions Chest/Abdomen/Pelvis CTA 01/21/25 08:52 Impression: Distended gallbladder with suspected mild pericholecystic inflammatory change, suspicious for acute cholecystitis. Correlate clinically. Consider ultrasound and/or HIDA scan for further evaluation as indicated. Mild bibasilar pulmonary edema/atelectasis. Upper Quadrant Ultrasound 01/21/25 12:09 IMPRESSION: Limited evaluation of the pancreas secondary to overlying bowel gas. Layering sludge within the distended gallbladder. Borderline gallbladder wall thickening without pericholecystic fluid. Trace surrounding inflammatory change on CT examination performed approximately 12 hours earlier with indeterminate findings on ultrasound examination. If clinical suspicion persists for acalculous cholecystitis, HIDA scan would provide additional information. Hepatobiliary Scan Nuclear Medicine 01/23/25 10:21 IMPRESSION: 1. Nonvisualization of the gallbladder and the 30 minutes following morphine administration consistent with acute cholecystitis. Chest CT 01/24/25 18:49 IMPRESSION: 1. Bilateral lower lobe airspace consolidation which may represent pneumonia and/or atelectasis. 2: Dilated gallbladder with wall thickening, pericystic cholecystic phlegmonous change and possible associated abscess involving the margin of the liver. Findings compatible with acute cholecystitis with sequela. 3: Small pleural effusions. 4: Nonobstructive left nephrolithiasis. Cholecystostomy 01/25/25 14:15 IMPRESSION: 1. Successful ultrasound-guided cholecystostomy tube placement. 2. 50 mL bile was sent for aerobic, anaerobic, and fungal cultures. 3. The catheter will be managed by Dr. Huang. A catheter cholangiogram may be performed not less than 48 hours after tube placement if clinically indicated to assess cystic duct patency. If cholecystectomy is not eventually performed and the infectious episode has resolved, the tube may be removed over a guidewire, preferably not less than 3 weeks after placement to allow time for a mature catheter tract to form to prevent bile leakage and peritonitis. Chest X-Ray 01/28/25 08:38 Impression: 1: Right basilar airspace disease may represent atelectasis or pneumonia. No significant change. 2: Subsegmental left basilar atelectasis. Abdomen CT 01/30/25 13:42 IMPRESSION: 1. Likely acute or chronic cholecystitis with percutaneous cholecystostomy tube in expected position. 2. Decrease in size of a 4.4 x 2.8 x 2.1 cm fluid collection positioned between the gallbladder, the gastric antrum and the inferior aspect of the left hepatic lobe which appears to communicate with the gallbladder through one of a couple defects in the wall of the gallbladder. 3. Small right and very small left pleural effusions with consolidation the dependent lower lobes, right greater than left with appearance favoring atelectasis over pneumonia. 4. Mild central periportal edema and minimal perihepatic ascites. 5. Wall thickening at the gastric antrum and at the hepatic flexure the colon which likely reactive related to the adjacent acute cholecystitis. Abdomen/Pelvis CT 02/02/25 15:46 IMPRESSION: 1. Cholecystostomy tube within the gallbladder with probable cholecystitis. There is a small amount of pericholecystic fluid noted with a small loculated focus adjacent to the distal stomach with probable reactive thickening of the gastric wall in this location, distinction from an ulcerative process within the stomach itself however is not excluded. Repeat exam with intravenous and oral contrast is suggested. The findings appear improved compared to the previous study. 2. Incidental findings above Cholangiogram 02/05/25 09:37 IMPRESSION: 1. Defect in the medial wall of the gallbladder resulting in extraluminal spillage of contrast which extends towards the region of the previous noted small abscess cavity located between the gallbladder fundus, the inferior margin of the left hepatic lobe and the greater curvature of the antrum of the stomach on prior CT. 2. Contrast extends into the cystic duct but no evident contrast within the common bile duct. Evaluation is however limited as contrast injection was terminated prematurely due to the contemporaneous extraluminal leakage of contrast. Labs Labs: Laboratory Results - last 24 hr 02/04/25 02/05/25 11:52 04:14 WBC 8.0 RBC 3.65 L Hgb 11.2 L Hct 34.3 L MCV 94.0 MCH 30.7 MCHC 32.7 RDW 13.3 Plt Count 264 MPV 9.5 Immature Gran % (Auto) 1.4 H Neut % (Auto) 65.8 Lymph % (Auto) 17.9 L [place] % (Auto) 11.5 H Eos % (Auto) 2.3 Baso % (Auto) 1.1 Lymph # (Auto) 1.43 [place] # (Auto) 0.9 H Eos # (Auto) 0.2 Baso # (Auto) 0.1 Abs Immat Gran (auto) 0.11 H Absolute Neuts (auto) 5.3 Absolute Nucleated RBC 0.000 Nucleated RBC % 0.0 Sodium 133 L 135 L Potassium 3.6 3.3 L Chloride 100 103 Carbon Dioxide 29 26 Anion Gap 4 6 BUN 19 17 Creatinine 1.64 H 1.56 H Estim Creat Clear Calc 43 50 Estimated GFR 41 L 43 L Glucose 101 108 Calcium 8.1 L 8.0 L Magnesium 1.7 Total Bilirubin 0.9 AST 43 ALT 81 H Alkaline Phosphatase 292 H Total Protein 6.0 L Albumin 2.6 L
[2025-02-05] MEDS: PANTOPRAZOLE 40 MG TABLET PO (09:59)
[2025-02-05] MEDS: METOPROLOL SUCCINATE EXT REL 25 MG TABCR PO (09:59)
[2025-02-05] MEDS: guaiFENesin 12 HR 600 MG TABCR 1200 MG PO ×2 (10:01→21:09)
[2025-02-05] MEDS: FLUTICASONE PROPIONATE 0.05% NA SPR 16 GM BTL (*BKC) 2 SPRAY NASAL ×2 (10:01→21:09)
[2025-02-05] MEDS: APIXABAN 5 MG TABLET PO ×2 (10:01→21:08)
[2025-02-05] MEDS: OMEGA 3 POLYUNSAT FATTY ACIDS 1 GM CAP PO (10:02)
--- NOTE | 2025-02-05 10:15 | P.PNIM_ITS ---
Progress Note: A&P Assessment and Plan (1) Severe sepsis: Code(s): A41.9 - Sepsis, unspecified organism; R65.20 - Severe sepsis without septic shock Status: Acute Assessment and Plan: * From acute Cholecystitis * Status post meropenem and Zosyn * Status post cholecystostomy tube placement 01/25/2025 * Restarted Unasyn on 02/02 due to worsening leukocytosis * Drainage cultures positive for pansensitive E coli in the aerobic specimen. * Anaerobic culture negative. * Gallbladder culture showed pansensitive E coli * Gall bladder drain in place. * Repeat CT abdomen due to concern of abscess on CT chest performed on 01/24 which shows Decrease in size of a 4.4 x 2.8 x 2.1 cm fluid collection positioned between the gallbladder, the gastric antrum and the inferior aspect of the left hepatic lobe CT 02/02/2025: Small amount of pericholecystic fluid noted with a small loculated focus at stent to the distal so sudeep with probable reactive thickening of the gastric wall in this location distinction from an ulcerative process within the stomach itself however is not excluded. Cholangiogram 02/05/2025: Defect in the medial wall of the gallbladder resulting in extraluminal spillage of contrast which extends to worse the region of the previous noted small abscess cavity located between the gallbladder fundus, the inferior margin of the left hepatic lobe in the greater curvature of the antrum of the stomach on prior CT. Contrast extends into the cystic duct but no evident contrast within the common bile duct. Patient currently on Unasyn Infectious Disease following General surgery following number will await general surgery recommendation with regard to cholangiogram finding (2) Multifocal pneumonia: Code(s): J18.8 - Other pneumonia, unspecified organism Status: Acute Assessment and Plan: * CT chest reviewed * S/p Levaquin, vanc discontinued as MRSA is negative * Restart Unasyn * Discontinue Augmentin * Guaifenesin 1,200 mg PO q 12. * Monitor sputum * May need a home 02 evaluation * Same as above (3) Colitis: Code(s): K52.9 - Noninfective gastroenteritis and colitis, unspecified Status: Acute Assessment and Plan: * Now on Unasyn. (4) Acute renal failure due to rhabdomyolysis: Code(s): N17.9 - Acute kidney failure, unspecified; M62.82 - Rhabdomyolysis Status: Acute Assessment and Plan: * Due to fall * Continue IV hydration * Echocardiogram 01/22/25: Summary 1. Left ventricular systolic function is normal, estimated at 50-55. 2. There is mildly increased left ventricular wall thickness. 3. Left atrial chamber dimension is moderately enlarged. 4. There is mild mitral valve regurgitation. 5. There is no tricuspid valve regurgitation. 6. No pulmonary hypertension, estimated pulmonary arterial systolic pressure is 22 mmHg. 7. There is mild pulmonic regurgitation. * Cr 1.64 * Monitor I and O (5) Transaminitis: Status: Acute Assessment and Plan: * Improving, being managed for cholecystitis * Monitor LFTs and improving (6) Acute dehydration: Code(s): E86.0 - Dehydration Status: Acute Assessment and Plan: * Encourage oral intake. (7) Atrial fibrillation with rapid ventricular response: Code(s): I48.91 - Unspecified atrial fibrillation Status: Acute Assessment and Plan: * Metoprolol 25 mg p.o. q.d. and Eliquis 5 mg PO q 12. (8) GERD (gastroesophageal reflux disease): Qualifiers: Esophagitis presence: esophagitis presence not specified Qualified Code(s): K21.9 - Gastro-esophageal reflux disease without esophagitis Code(s): K21.9 - Gastro-esophageal reflux disease without esophagitis Status: Acute Assessment and Plan: * Pantoprazole 40 mg PO qam. (9) Elevated troponin: Code(s): R79.89 - Other specified abnormal findings of blood chemistry Status: Acute Assessment and Plan: * Possibly due to rhabdomyolysis * ECHO 50-55%, no regional wall motion abnormalities * Cardiology noted no further intervention if no regional wall motion abnormal ities * Cardiology saw patient, appreciate recommendations. (10) Memory impairment: Code(s): R41.3 - Other amnesia Status: Acute Assessment and Plan: * E coli Acute cholecystitis * HIDA scan showed acute cholecystitis * Gall bladder culture grew pansensitive E coli * GI evaluated and no concern for CBD obstruction that will require ERCP * S/p Per Cholecystostomy * Initially Gen surgery okay with the discharge with Cholecystostomy tube * ID following * A&Ox3 currently. Subjective Date/time seen: 02/05/25 10:15 Interval history: No overnight events. Patient underwent cholangiogram this a.m.. Denies any abdominal pain nausea vomiting. Remains afebrile. Cholecystostomy tube in situ. Labs reviewed. Cholangiogram finding reviewed. Review of Systems Review of Systems: All systems reviewed & are unremarkable except as noted in HPI and below Exam Narrative: GENERAL: The patient is well developed, not in acute distress HEENT: Nonicteric sclerae, PERRLA, EOMI. Oropharynx clear. Moist mucous membranes. Conjunctivae appear well perfused. CHEST: Chest wall is nontender. HEART: Regular rate and rhythm without murmur, rubs, or gallops LUNGS: Clear to auscultation bilaterally. no respiratory distress ABDOMEN: Soft, positive bowel sounds, non-tender, no organomegaly. Right cholecystostomy tube in situ with serosanguineous drainage in the bag SKIN: No rash, no excessive bruising, petechiae, or purpura. NEUROLOGIC: Cranial nerves II-XII intact, alert and oriented x 3, no gross motor deficits EXTREMITIES: no edema, cyanosis or clubbing Objective Data Vital Signs Vital Signs: Vital Signs - 24 hr 02/04/25 12:00 02/04/25 14:00 02/04/25 16:00 Temperature 97.4 F L Pulse Rate 84 81 79 Respiratory Rate 18 Blood Pressure 141/84 H Pulse Oximetry 93 Oxygen Delivery Fraction of Inspired Oxygen 02/04/25 20:00 02/04/25 20:00 02/04/25 20:19 Temperature 97.6 F Pulse Rate 83 82 82 Respiratory Rate 20 20 Blood Pressure 143/89 H Pulse Oximetry 93 94 Oxygen Delivery Room Air Fraction of Inspired Oxygen 32 02/04/25 20:36 02/05/25 00:00 02/05/25 04:00 Temperature Pulse Rate 83 78 74 Respiratory Rate Blood Pressure Pulse Oximetry 93 Oxygen Delivery Room Air Fraction of Inspired Oxygen 02/05/25 04:10 02/05/25 08:00 02/05/25 08:00 Temperature 97.1 F L Pulse Rate 86 93 Respiratory Rate 20 Blood Pressure 146/82 H Pulse Oximetry 94 96 Oxygen Delivery Room Air Fraction of Inspired Oxygen 02/05/25 09:59 Temperature Pulse Rate 92 Respiratory Rate Blood Pressure Pulse Oximetry Oxygen Delivery Fraction of Inspired Oxygen Intake/Output Intake/Output: Intake & Output 02/02/25 02/03/25 02/04/25 02/05/25 23:59 23:59 23:59 23:59 Intake Total 1414 2092 1350 460 Output Total 8645 1858 5637 1004 [facility] -956 -18 -575 -544 Meds/Results Medications: Active Medications Generic Name Dose Route Start Last Admin Trade Name Freq PRN Reason Stop Dose Admin Acetaminophen 650 mg 01/21/25 02:19 01/21/25 09:30 Acetaminophen 325 Mg Tablet PO 650 mg Q4H PRN Administration Mild Pain (1-3) or Fever Apixaban 5 mg 01/28/25 21:00 02/05/25 10:01 Apixaban 5 Mg Tablet PO 5 mg Q12HR DREAD Administration Calcium Carbonate 400 mg 02/01/25 20:00 02/01/25 21:15 Calcium Carbonate (Tums) 500 Mg (200 Mg Elemental) PO 400 mg Q6H PRN Administration Indigestion Fish Oil 1 gm 01/21/25 09:00 02/05/25 10:02 [place] 3 Polyunsat Fatty Acids 1 Gm Cap PO 1 gm DAILY DREAD Administration Fluticasone Propionate 2 spray 01/23/25 21:00 02/05/25 10:01 Fluticasone Propionate 0.05% Na Spr 16 Gm Btl (*Bkc) NASAL 2 spray Q12HR DREAD Administration Guaifenesin 1,200 mg 01/25/25 21:00 02/05/25 10:01 Guaifenesin 12 Hr 600 Mg Tabcr PO 1,200 mg Q12HR DREAD Administration Ampicillin Sodium/Sulbactam 100 mls @ 200 mls/hr 02/02/25 12:00 02/05/25 06:06 Sodium 3 gm/ Sodium Chloride IVPB 200 mls/hr Q6H DREAD Administration Metoprolol Succinate 25 mg 01/22/25 09:00 02/05/25 09:59 Metoprolol Succinate Ext Rel 25 Mg Tabcr PO 25 mg QAM DREAD Administration Ondansetron HCl 4 mg 01/21/25 02:19 Ondansetron Inj 4 Mg/2 Ml Vial IV PUSH Q4H PRN Nausea Pantoprazole Sodium 40 mg 02/04/25 09:00 02/05/25 09:59 Pantoprazole 40 Mg Tablet PO 40 mg QAM DREAD Administration Zolpidem Tartrate 2.5 mg 01/29/25 10:15 02/04/25 21:13 Zolpidem Tartrate (*Crx) 2.5 Mg Tablet PO 2.5 mg HS PRN Administration Insomnia Radiology Results: ITS Impressions Chest/Abdomen/Pelvis CTA 01/21/25 08:52 Impression: Distended gallbladder with suspected mild pericholecystic inflammatory change, suspicious for acute cholecystitis. Correlate clinically. Consider ultrasound and/or HIDA scan for further evaluation as indicated. Mild bibasilar pulmonary edema/atelectasis. Upper Quadrant Ultrasound 01/21/25 12:09 IMPRESSION: Limited evaluation of the pancreas secondary to overlying bowel gas. Layering sludge within the distended gallbladder. Borderline gallbladder wall thickening without pericholecystic fluid. Trace surrounding inflammatory change on CT examination performed approximately 12 hours earlier with indeterminate findings on ultrasound examination. If clinical suspicion persists for acalculous cholecystitis, HIDA scan would provide additional information. Hepatobiliary Scan Nuclear Medicine 01/23/25 10:21 IMPRESSION: 1. Nonvisualization of the gallbladder and the 30 minutes following morphine administration consistent with acute cholecystitis. Chest CT 01/24/25 18:49 IMPRESSION: 1. Bilateral lower lobe airspace consolidation which may represent pneumonia and/or atelectasis. 2: Dilated gallbladder with wall thickening, pericystic cholecystic phlegmonous change and possible associated abscess involving the margin of the liver. Findings compatible with acute cholecystitis with sequela. 3: Small pleural effusions. 4: Nonobstructive left nephrolithiasis. Cholecystostomy 01/25/25 14:15 IMPRESSION: 1. Successful ultrasound-guided cholecystostomy tube placement. 2. 50 mL bile was sent for aerobic, anaerobic, and fungal cultures. 3. The catheter will be managed by Dr. Huang. A catheter cholangiogram may be performed not less than 48 hours after tube placement if clinically indicated to assess cystic duct patency. If cholecystectomy is not eventually performed and the infectious episode has resolved, the tube may be removed over a guidewire, preferably not less than 3 weeks after placement to allow time for a mature catheter tract to form to prevent bile leakage and peritonitis. Chest X-Ray 01/28/25 08:38 Impression: 1: Right basilar airspace disease may represent atelectasis or pneumonia. No significant change. 2: Subsegmental left basilar atelectasis. Abdomen CT 01/30/25 13:42 IMPRESSION: 1. Likely acute or chronic cholecystitis with percutaneous cholecystostomy tube in expected position. 2. Decrease in size of a 4.4 x 2.8 x 2.1 cm fluid collection positioned between the gallbladder, the gastric antrum and the inferior aspect of the left hepatic lobe which appears to communicate with the gallbladder through one of a couple defects in the wall of the gallbladder. 3. Small right and very small left pleural effusions with consolidation the dependent lower lobes, right greater than left with appearance favoring atelectasis over pneumonia. 4. Mild central periportal edema and minimal perihepatic ascites. 5. Wall thickening at the gastric antrum and at the hepatic flexure the colon which likely reactive related to the adjacent acute cholecystitis. Abdomen/Pelvis CT 02/02/25 15:46 IMPRESSION: 1. Cholecystostomy tube within the gallbladder with probable cholecystitis. There is a small amount of pericholecystic fluid noted with a small loculated focus adjacent to the distal stomach with probable reactive thickening of the gastric wall in this location, distinction from an ulcerative process within the stomach itself however is not excluded. Repeat exam with intravenous and oral contrast is suggested. The findings appear improved compared to the previous study. 2. Incidental findings above Cholangiogram 02/05/25 09:37 IMPRESSION: 1. Defect in the medial wall of the gallbladder resulting in extraluminal spillage of contrast which extends towards the region of the previous noted small abscess cavity located between the gallbladder fundus, the inferior margin of the left hepatic lobe and the greater curvature of the antrum of the stomach on prior CT. 2. Contrast extends into the cystic duct but no evident contrast within the common bile duct. Evaluation is however limited as contrast injection was terminated prematurely due to the contemporaneous extraluminal leakage of contrast. Labs Labs: Laboratory Results - last 24 hr 02/04/25 02/05/25 11:52 04:14 WBC 8.0 RBC 3.65 L Hgb 11.2 L Hct 34.3 L MCV 94.0 MCH 30.7 MCHC 32.7 RDW 13.3 Plt Count 264 MPV 9.5 Immature Gran % (Auto) 1.4 H Neut % (Auto) 65.8 Lymph % (Auto) 17.9 L [place] % (Auto) 11.5 H Eos % (Auto) 2.3 Baso % (Auto) 1.1 Lymph # (Auto) 1.43 [place] # (Auto) 0.9 H Eos # (Auto) 0.2 Baso # (Auto) 0.1 Abs Immat Gran (auto) 0.11 H Absolute Neuts (auto) 5.3 Absolute Nucleated RBC 0.000 Nucleated RBC % 0.0 Sodium 133 L 135 L Potassium 3.6 3.3 L Chloride 100 103 Carbon Dioxide 29 26 Anion Gap 4 6 BUN 19 17 Creatinine 1.64 H 1.56 H Estim Creat Clear Calc 43 50 Estimated GFR 41 L 43 L Glucose 101 108 Calcium 8.1 L 8.0 L Magnesium 1.7 Total Bilirubin 0.9 AST 43 ALT 81 H Alkaline Phosphatase 292 H Total Protein 6.0 L Albumin 2.6 L
[2025-02-05] MEDS: POTASSIUM CHLORIDE 20 MEQ ER TABLET 40 MEQ PO (10:31)
--- NOTE | 2025-02-05 10:34 | PCNWS ---
Weekly nutritional screen. Patient is tolerating current Low Fat diet with adequate intake, 80-100%. No weight loss reported. No nutritional needs at this time.
--- NOTE | 2025-02-05 10:57 | P.PNGS_ITS ---
Progress Note: A&P Assessment and Plan (1) Transaminitis: Status: Acute Assessment and Plan: LFTs continuing to improve. Cholangiogram obtained today and demonstrated defect in the medial wall of the gallbladder resulting in extraluminal spillage of co ntrast which extends towards the region of the previous noted small abscess cavity located between the gallbladder fundus, the inferior margin of the left hepatic lobe, and the greater curvature of the antrum of the stomach on prior CT. Contrast extends into cystic but no within common evaluation contrast injection was terminated prematurely due to extraluminal leakage of contrast. * Will discuss results with the surgeon. * Patient will eventually likely need laparoscopic cholecystectomy after discharge once medically stable. (2) Acute cholecystitis: Code(s): K81.0 - Acute cholecystitis Status: Acute Assessment and Plan: Patient does not complain of any abdominal pain today. Cholecystostomy tube patent and draining well. (3) History of percutaneous insertion of cholecystostomy tube: Code(s): Z98.890 - Other specified postprocedural states Status: Acute Assessment and Plan: Placed 01/25/2025. Cholangiogram today demonstrating extraluminal spillage of contrast towards region of previously noted small abscess cavity. (4) Elevated serum creatinine: Code(s): R79.89 - Other specified abnormal findings of blood chemistry Status: Chronic Assessment and Plan: 1.56 today. Continue to monitor. 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 Plan Discussed patient's case and plan of care with Dr. Huang. Subjective Subjective Date/Time Seen: 02/05/25 10:57 Patient reports: no new complaints, feels better and tolerating a regular diet Interval history: Patient is doing well today. No acute events overnight. Tolerating low-fat diet without nausea or vomiting. No complaints pain. Exam GI: Inspection: non-distended GI Palp: Yes Soft to palpation, No Tenderness to palpation present (GI) and No Guarding due to palpation present (GI) Other: Cholecystostomy tube patent and draining well. Bloody reddish brown fluid in bag. Objective Data Vital Signs Vital Signs: Vital Signs - 24 hr 02/04/25 12:00 02/04/25 14:00 02/04/25 16:00 Temperature 97.4 F L Pulse Rate 84 81 79 Respiratory Rate 18 Blood Pressure 141/84 H Pulse Oximetry 93 Oxygen Delivery Fraction of Inspired Oxygen 02/04/25 20:00 02/04/25 20:00 02/04/25 20:19 Temperature 97.6 F Pulse Rate 83 82 82 Respiratory Rate 20 20 Blood Pressure 143/89 H Pulse Oximetry 93 94 Oxygen Delivery Room Air Fraction of Inspired Oxygen 32 02/04/25 20:36 02/05/25 00:00 02/05/25 04:00 Temperature Pulse Rate 83 78 74 Respiratory Rate Blood Pressure Pulse Oximetry 93 Oxygen Delivery Room Air Fraction of Inspired Oxygen 02/05/25 04:10 02/05/25 08:00 02/05/25 08:00 Temperature 97.1 F L Pulse Rate 86 93 Respiratory Rate 20 Blood Pressure 146/82 H Pulse Oximetry 94 96 Oxygen Delivery Room Air Fraction of Inspired Oxygen 02/05/25 09:59 02/05/25 10:00 Temperature 97.5 F L Pulse Rate 92 92 Respiratory Rate 20 Blood Pressure 149/88 H Pulse Oximetry 95 Oxygen Delivery Fraction of Inspired Oxygen Intake/Output Intake/Output: Intake & Output 02/02/25 02/03/25 02/04/25 02/05/25 23:59 23:59 23:59 23:59 Intake Total 1414 2092 1350 560 Output Total 2370 2110 1925 1004 Balance -956 -18 -575 -444 Meds/Results Medications: Active Medications Generic Name Dose Route Start Last Admin Trade Name Freq PRN Reason Stop Dose Admin Acetaminophen 650 mg 01/21/25 02:19 01/21/25 09:30 Acetaminophen 325 Mg Tablet PO 650 mg Q4H PRN Administration Mild Pain (1-3) or Fever Apixaban 5 mg 01/28/25 21:00 02/05/25 10:01 Apixaban 5 Mg Tablet PO 5 mg Q12HR DREAD Administration Calcium Carbonate 400 mg 02/01/25 20:00 02/01/25 21:15 Calcium Carbonate (Tums) 500 Mg (200 Mg Elemental) PO 400 mg Q6H PRN Administration Indigestion Fish Oil 1 gm 01/21/25 09:00 02/05/25 10:02 [place] 3 Polyunsat Fatty Acids 1 Gm Cap PO 1 gm DAILY DREAD Administration Fluticasone Propionate 2 spray 01/23/25 21:00 02/05/25 10:01 Fluticasone Propionate 0.05% Na Spr 16 Gm Btl (*Bkc) NASAL 2 spray Q12HR DREAD Administration Guaifenesin 1,200 mg 01/25/25 21:00 02/05/25 10:01 Guaifenesin 12 Hr 600 Mg Tabcr PO 1,200 mg Q12HR DREAD Administration Ampicillin Sodium/Sulbactam 100 mls @ 200 mls/hr 02/02/25 12:00 02/05/25 07:00 Sodium 3 gm/ Sodium Chloride IVPB Infused Q6H DREAD Infusion Metoprolol Succinate 25 mg 01/22/25 09:00 02/05/25 09:59 Metoprolol Succinate Ext Rel 25 Mg Tabcr PO 25 mg QAM DREAD Administration Ondansetron HCl 4 mg 01/21/25 02:19 Ondansetron Inj 4 Mg/2 Ml Vial IV PUSH Q4H PRN Nausea Pantoprazole Sodium 40 mg 02/04/25 09:00 02/05/25 09:59 Pantoprazole 40 Mg Tablet PO 40 mg QAM DREAD Administration Zolpidem Tartrate 2.5 mg 01/29/25 10:15 02/04/25 21:13 Zolpidem Tartrate (*Crx) 2.5 Mg Tablet PO 2.5 mg HS PRN Administration Insomnia Radiology Results: ITS Impressions Chest/Abdomen/Pelvis CTA 01/21/25 08:52 Impression: Distended gallbladder with suspected mild pericholecystic inflammatory change, suspicious for acute cholecystitis. Correlate clinically. Consider ultrasound and/or HIDA scan for further evaluation as indicated. Mild bibasilar pulmonary edema/atelectasis. Upper Quadrant Ultrasound 01/21/25 12:09 IMPRESSION: Limited evaluation of the pancreas secondary to overlying bowel gas. Layering sludge within the distended gallbladder. Borderline gallbladder wall thickening without pericholecystic fluid. Trace surrounding inflammatory change on CT examination performed approximately 12 hours earlier with indeterminate findings on ultrasound examination. If clinical suspicion persists for acalculous cholecystitis, HIDA scan would provide additional information. Hepatobiliary Scan Nuclear Medicine 01/23/25 10:21 IMPRESSION: 1. Nonvisualization of the gallbladder and the 30 minutes following morphine administration consistent with acute cholecystitis. Chest CT 01/24/25 18:49 IMPRESSION: 1. Bilateral lower lobe airspace consolidation which may represent pneumonia and/or atelectasis. 2: Dilated gallbladder with wall thickening, pericystic cholecystic phlegmonous change and possible associated abscess involving the margin of the liver. Findings compatible with acute cholecystitis with sequela. 3: Small pleural effusions. 4: Nonobstructive left nephrolithiasis. Cholecystostomy 01/25/25 14:15 IMPRESSION: 1. Successful ultrasound-guided cholecystostomy tube placement. 2. 50 mL bile was sent for aerobic, anaerobic, and fungal cultures. 3. The catheter will be managed by Dr. Huang. A catheter cholangiogram may be performed not less than 48 hours after tube placement if clinically indicated to assess cystic duct patency. If cholecystectomy is not eventually performed and the infectious episode has resolved, the tube may be removed over a guidewire, preferably not less than 3 weeks after placement to allow time for a mature catheter tract to form to prevent bile leakage and peritonitis. Chest X-Ray 01/28/25 08:38 Impression: 1: Right basilar airspace disease may represent atelectasis or pneumonia. No significant change. 2: Subsegmental left basilar atelectasis. Abdomen CT 01/30/25 13:42 IMPRESSION: 1. Likely acute or chronic cholecystitis with percutaneous cholecystostomy tube in expected position. 2. Decrease in size of a 4.4 x 2.8 x 2.1 cm fluid collection positioned between the gallbladder, the gastric antrum and the inferior aspect of the left hepatic lobe which appears to communicate with the gallbladder through one of a couple defects in the wall of the gallbladder. 3. Small right and very small left pleural effusions with consolidation the dependent lower lobes, right greater than left with appearance favoring atelectasis over pneumonia. 4. Mild central periportal edema and minimal perihepatic ascites. 5. Wall thickening at the gastric antrum and at the hepatic flexure the colon which likely reactive related to the adjacent acute cholecystitis. Abdomen/Pelvis CT 02/02/25 15:46 IMPRESSION: 1. Cholecystostomy tube within the gallbladder with probable cholecystitis. There is a small amount of pericholecystic fluid noted with a small loculated focus adjacent to the distal stomach with probable reactive thickening of the gastric wall in this location, distinction from an ulcerative process within the stomach itself however is not excluded. Repeat exam with intravenous and oral contrast is suggested. The findings appear improved compared to the previous study. 2. Incidental findings above Cholangiogram 02/05/25 09:37 IMPRESSION: 1. Defect in the medial wall of the gallbladder resulting in extraluminal spillage of contrast which extends towards the region of the previous noted small abscess cavity located between the gallbladder fundus, the inferior margin of the left hepatic lobe and the greater curvature of the antrum of the stomach on prior CT. 2. Contrast extends into the cystic duct but no evident contrast within the common bile duct. Evaluation is however limited as contrast injection was terminated prematurely due to the contemporaneous extraluminal leakage of contrast. Labs Labs: Laboratory Results - last 24 hr 02/04/25 02/05/25 11:52 04:14 WBC 8.0 RBC 3.65 L Hgb 11.2 L Hct 34.3 L MCV 94.0 MCH 30.7 MCHC 32.7 RDW 13.3 Plt Count 264 MPV 9.5 Immature Gran % (Auto) 1.4 H Neut % (Auto) 65.8 Lymph % (Auto) 17.9 L [place] % (Auto) 11.5 H Eos % (Auto) 2.3 Baso % (Auto) 1.1 Lymph # (Auto) 1.43 [place] # (Auto) 0.9 H Eos # (Auto) 0.2 Baso # (Auto) 0.1 Abs Immat Gran (auto) 0.11 H Absolute Neuts (auto) 5.3 Absolute Nucleated RBC 0.000 Nucleated RBC % 0.0 Sodium 133 L 135 L Potassium 3.6 3.3 L Chloride 100 103 Carbon Dioxide 29 26 Anion Gap 4 6 BUN 19 17 Creatinine 1.64 H 1.56 H Estim Creat Clear Calc 43 50 Estimated GFR 41 L 43 L Glucose 101 108 Calcium 8.1 L 8.0 L Magnesium 1.7 Total Bilirubin 0.9 AST 43 ALT 81 H Alkaline Phosphatase 292 H Total Protein 6.0 L Albumin 2.6 L
--- NOTE | 2025-02-05 14:34 | PC.NURSE ---
On 02/05/25, the student, [Nicolette Juan], provided care and completed [facility] documentation on this patient. I have reviewed the student's documentation and agree with the findings.
[2025-02-05] MEDS: ZOLPIDEM TARTRATE (*CRX) 2.5 MG TABLET PO (21:08)
[2025-02-06] VITALS (7 sets, daily range): BP systolic 140–158; BP diastolic 93–97; PULSE 74–90; RESP 16–20; TEMP 36.5; O2SAT 91–97
[2025-02-06 04:56] LABS: Hematocrit 33.9 % (42.0-52.0); Hemoglobin 11.2 g/dL (14.0-18.0); Immature Granulocyte Percent A 1.6 % (0-0.5); Lymphocytes Absolute Auto 1.77 K/mm3 (0.9-3.2); Mean Corpuscular HGB Conc 33.0 g/dl (32-36); Mean Corpuscular Hemoglobin 30.9 pg (26-34); Mean Corpuscular Volume 93.4 fl (80-100); Nucleated Red Blood Cells Absolute Auto 0.000 K/mm3 (0.0-0.012); Nucleated Red Blood Cells Perc 0.0 % (0.0-0.2); Platelet Count Result 253 k/mm3 (150-375); Red Blood Count 3.63 M/mm3 (4.6-6.20); White Blood Count 6.8 K/mm3 (4.5-10.0)
[2025-02-06 05:08] LABS: Alanine Aminotransferase 65 U/L (6-50); Albumin Level 2.8 g/dL (3.5-5.1); Alkaline Phosphatase 229 U/L (38-126); Anion Gap 6 mmol/L (4-12); Aspartate Amino Transferase 42 U/L (17-59); Bilirubin,Total 0.8 mg/dL (0.2-1.3); Blood Urea Nitrogen 15 mg/dL (9-20); Calcium 8.0 mg/dL (8.4-10.2); Carbon Dioxide 26 mmol/L (22-30); Chloride 103 mmol/L (98-107); Estimated CRCL calculation 42 ml/min; Estimated Glomerular Filt Rate 40; Glucose 106 mg/dL (65-110); Magnesium 1.6 mg/dL (1.6-2.3); Potassium 3.6 mmol/L (3.4-5.0); Sodium 135 mmol/L (137-145); Total Protein 6.2 g/dL (6.3-8.2)
[2025-02-06] MEDS: AMPICILLIN SODIUM/SULBACTAM 3 GM in SODIUM CHLORIDE 0.9% IV 100 ML 200 ML IVPB (05:38)
[2025-02-06] MEDS: METOPROLOL SUCCINATE EXT REL 25 MG TABCR PO (08:32)
[2025-02-06] MEDS: PANTOPRAZOLE 40 MG TABLET PO (08:32)
[2025-02-06] MEDS: APIXABAN 5 MG TABLET PO (08:32)
[2025-02-06] MEDS: guaiFENesin 12 HR 600 MG TABCR 1200 MG PO (08:32)
[2025-02-06] MEDS: FLUTICASONE PROPIONATE 0.05% NA SPR 16 GM BTL (*BKC) 2 SPRAY NASAL (08:32)
[2025-02-06] MEDS: OMEGA 3 POLYUNSAT FATTY ACIDS 1 GM CAP PO (08:32)
[2025-02-06] MEDS: POTASSIUM CHLORIDE 20 MEQ PACKET (FOR LIQUID) 40 MEQ PO (09:22)
[2025-02-06] MEDS: MAGNESIUM SULF 1 GM/D5W 100 ML 1 GM/100 ML BAG IVPB (09:22)
--- NOTE | 2025-02-06 12:02 | P.DS_ITS ---
DS: Admitting Diagnosis Discharge Date 02/06/25 Admitting Diagnosis Severe sepsis Acute cholecystitis Multifocal pneumonia Acute colitis Acute renal failure due to rhabdomyolysis Acute dehydration AFib with RVR DS: Discharge Diagnosis Discharge Diagnosis (1) Atrial fibrillation with rapid ventricular response: Code(s): I48.91 - Unspecified atrial fibrillation Status: Acute (2) Transaminitis: Status: Acute (3) Acute cholecystitis: Code(s): K81.0 - Acute cholecystitis Status: Acute (4) Elevated LFTs: Code(s): R79.89 - Other specified abnormal findings of blood chemistry Status: Acute (5) History of percutaneous insertion of cholecystostomy tube: Code(s): Z98.890 - Other specified postprocedural states Status: Acute (6) Pericholecystic abscess: Code(s): K81.0 - Acute cholecystitis Status: Acute (7) Colitis: Code(s): K52.9 - Noninfective gastroenteritis and colitis, unspecified Status: Acute (8) Acute renal failure due to rhabdomyolysis: Code(s): N17.9 - Acute kidney failure, unspecified; M62.82 - Rhabdomyolysis Status: Acute (9) Acute dehydration: Code(s): E86.0 - Dehydration Status: Acute DS: Summary Hospital Course Reason for hospitalization: Sepsis Rhabdomyolysis Hospital Course: 4-year-old male with a past medical history of mild cognitive impairment, chronic hearing loss, GERD, dyslipidemia essential hypertension and insomnia who presented to the ER from home after his daughter found him down on the floor. On arrival to the ER patient was found to be febrile, tachycardic with heart rates in the 160s to 180s and in AFib. When he arrived to the IMU the patient was unable to void and was complaining of lower abdominal pain. Subsequently a [place] catheter was placed which demonstrated coke colored urine. Labs in the ER demonstrated the patient had rhabdomyolysis with a CK greater than 10,000 acute kidney injury and lactic acidosis. The patient received treatment for sepsis and CT demonstrated possible colitis and pneumonia. The patient was treated initially with Cardizem drip without improvement in his heart rate in subsequently was switched to amiodarone with some improvement. CT of abdomen identified distended gallbladder with suspected mild pericholecystic inflammatory change that might be suspicious for acute cholecystitis. Ultrasound of gallbladder showed layering sludge within the distended gallbladder and borderline gallbladder wall thickening without pericholecystic fluid. Nonvisualization of the gallbladder on HIDA scan was suggestive of acute cholecystitis. Seen by General surgery who recommended, based on patient's overall status, consideration of cholecystostomy tube placement. Status post cholecystostomy tube placement 01/25/2025. Cholecystostomy drainage cultures positive for Gram-negative rods, to date. Completed treatment for pneumonia. Patient was on Unasyn, transitioned to Augmentin for additional 7 days upon discharge. Liver functions have been improving but has not normalized on day of discharge. Patient will have outpatient follow-up with Cardiology and General surgery. Started on metoprolol and Eliquis for AFib. Patient will be discharged home with home health in stable condition. Time Spent with Patient Time attestation: Total time spent providing and/or coordinating discharge services: 32 minutes Exam Narrative: GENERAL: The patient is well developed, not in acute distress HEENT: Nonicteric sclerae, PERRLA, EOMI. Oropharynx clear. Moist mucous membranes. Conjunctivae appear well perfused. CHEST: Chest wall is nontender. HEART: Regular rate and rhythm without murmur, rubs, or gallops LUNGS: Clear to auscultation bilaterally. no respiratory distress ABDOMEN: Soft, positive bowel sounds, non-tender, no organomegaly. Right cholecystostomy tube in situ with serosanguineous drainage in the bag SKIN: No rash, no excessive bruising, petechiae, or purpura. NEUROLOGIC: Cranial nerves II-XII intact, alert and oriented x 3, no gross motor deficits EXTREMITIES: no edema, cyanosis or clubbing DS: Data Data Completed and Pending Labs on day of discharge: Labs from last 24 hours 02/06/25 04:34 WBC 6.8 RBC 3.63 L Hgb 11.2 L Hct 33.9 L MCV 93.4 MCH 30.9 MCHC 33.0 RDW 13.4 Plt Count 253 MPV 9.2 Immature Gran % (Auto) 1.6 H Neut % (Auto) 56.3 Lymph % (Auto) 26.1 [place] % (Auto) 11.8 H Eos % (Auto) 2.9 Baso % (Auto) 1.3 H Lymph # (Auto) 1.77 [place] # (Auto) 0.8 H Eos # (Auto) 0.2 Baso # (Auto) 0.1 Abs Immat Gran (auto) 0.11 H Absolute Neuts (auto) 3.8 Absolute Nucleated RBC 0.000 Nucleated RBC % 0.0 Sodium 135 L Potassium 3.6 Chloride 103 Carbon Dioxide 26 Anion Gap 6 BUN 15 Creatinine 1.68 H Estim Creat Clear Calc 42 Estimated GFR 40 L Glucose 106 Calcium 8.0 L Magnesium 1.6 Total Bilirubin 0.8 AST 42 ALT 65 H Alkaline Phosphatase 229 H Total Protein 6.2 L Albumin 2.8 L Preliminary micro results at discharge 01/25/25 12:55 Fungal Culture - Preliminary Gallbladder Fluid Discharge Plan Discharge Attending physician on discharge: Marquita Hazel Consulting providers: Shahbaz Arroyo; Randall Huang; Cody Otto; Pete Pack; Darek Narayan Discharging Clinician: Marquita Hazel Anticipated Discharge Date/Time: 02/06/25 11:55 Patient Disposition: Home with Home Health Service Activity: as tolerated Diet: low fat Discharge Instructions: Per Care Coordination: [facility] ([phone]) will call to set up initial visit. * Call general surgery office to schedule outpatient follow up appointment in [address] Huang. ([phone]) Cholecystostomy tube care: * Empty and record output from drain 1-2 times daily * OK to sponge bathe. Keep drain dry. * May remove bandage and clean around drain every 3 days. * Re-apply 4x4 gauze and Tegaderm dressing every 3 days. Patient Instructions: Antibiotic Form, Blood Thinners (GEN) Patient Language: Sen[place]alese Stand Alone Forms: General Discharge Information Follow-up/Referrals: Shahbaz Arroyo MD [Physician, Cardiology] - 2 Weeks Randall Huang MD [Physician, General Surgery] - 2 Weeks Referral Note: Call to schedule Discharge Medications: New metoprolol succinate [Toprol XL] 25 mg Tablet Extended Release 24 Hr 25 mg PO QAM Qty: 30 1RF Eliquis 5 mg Tablet 5 mg PO Q12HR Qty: 60 1RF amoxicillin-pot clavulanate 875-125 mg tablet 1 tablet PO Q12H Qty: 14 0RF Continued pyridoxine (vitamin B6) 100 mg tablet 100 mg PO DAILY Prevagen 10 mg BYMOUTH . daily omega-3 fatty acids-fish oil [Fish Oil] 360-1,200 mg capsule 1 cap PO DAILY pravastatin 40 mg tablet See Rx Instructions .ROUTE .COMPLEX Qty: 90 1RF Dose Instruction: TAKE 1 TABLET BY MOUTH DAILY Rx Instructions: TAKE 1 TABLET BY MOUTH DAILY fluticasone propionate [Flonase Allergy Relief] 50 mcg/actuation spray,suspension 2 spray intranasal BID Qty: 16 12RF Rx Instructions: administer into each nostril. Aim back/up/out thiamine HCl (vitamin B1) 100 mg capsule 100 mg PO DAILY ascorbic acid (vitamin C) 500 mg capsule 500 mg PO DAILY zolpidem 10 mg tablet 10 mg PO QHS Qty: 30 0RF omeprazole 40 mg capsule,delayed release(DR/EC) See Rx Instructions .ROUTE .COMPLEX Qty: 180 1RF Dose Instruction: TAKE 1 CAPSULE BY MOUTH TWICE DAILY Rx Instructions: TAKE 1 CAPSULE BY MOUTH TWICE DAILY donepezil 5 mg tablet 5 mg PO QHS Qty: 90 1RF Discontinued valsartan 320 mg tablet 320 mg PO DAILY Qty: 90 1RF Rx Instructions: Please D/C the Amlodipine/ Valsartan. Thank you! meloxicam 15 mg tablet See Rx Instructions .ROUTE .COMPLEX Qty: 30 2RF Dose Instruction: TAKE 1 TABLET BY MOUTH AT BEDTIME Rx Instructions: TAKE 1 TABLET BY MOUTH AT BEDTIME Date of admission: 01/21/25 02:44 Primary Care Provider: Anshul Mason Admitting Provider: Madai Carrero Attending physician on admission: Madai Carrero Condition: Improved
--- NOTE | 2025-02-06 14:04 | P.PNINF_ITS ---
Progress Note: A&P Assessment and Plan (1) Acute cholecystitis: Code(s): K81.0 - Acute cholecystitis Status: Acute (2) Pericholecystic abscess: Code(s): K81.0 - Acute cholecystitis Status: Acute (3) History of percutaneous insertion of cholecystostomy tube: Code(s): Z98.890 - Other specified postprocedural states Status: Acute (4) Multifocal pneumonia: Code(s): J18.8 - Other pneumonia, unspecified organism Status: Acute (5) Rhabdomyolysis: Code(s): M62.82 - Rhabdomyolysis Status: Acute (6) Transaminitis: Status: Acute (7) Hyperbilirubinemia: Code(s): E80.6 - Other disorders of bilirubin metabolism Status: Acute (8) Acute renal failure due to rhabdomyolysis: Code(s): N17.9 - Acute kidney failure, unspecified; M62.82 - Rhabdomyolysis Status: Acute (9) Atrial fibrillation with rapid ventricular response: Code(s): I48.91 - Unspecified atrial fibrillation Status: Acute (10) Hypoxemia: Code(s): R09.02 - Hypoxemia Status: Acute Plan # Acute cholecystitis with CT evidence of surrounding pericholecystic phlegmonous change and fluid collection suggesting pericholecystic abscess, now status post cholecystostomy tube placement. -- drainage cultures positive for pansensitive E coli in the aerobic specimen. Anaerobic culture negative. -- follow-up CT scan performed 01/30/2025 in response to progressive leukocytosis identifies cholecystostomy tube in proper position, decreased size of gallbladder, and decreased size of pericholecystic abscess. However, recent progressive transaminitis and hyperbilirubinemia in conjunction with leukocytosis prompting repeat CT scan and today's cholangiogram. Cholangiogram identifies medial wall of gallbladder defect with extraluminal spillage of contrast and contrast extending into the cystic duct but no evidence of contrast in the common bile duct. -- currently receiving Unasyn , day 8 of antibiotics. # Completion of treatment for possible basilar pneumonia. # Acute rhabdomyolysis with WEI after being found down at home. -- normalized CPK. Plan: -- will discontinue Unasyn and place patient on oral Augmentin 875 mg q.12 hours for 7 additional days. Patient was seen via video telehealth consultation with the assistance of staff. Chart, data, and patient independently reviewed. Patient was located at [facility] while I was located in my [place] office. Received verbal consent from patient. Subjective Date/time seen: 02/06/25 14:04 Interval history: 01/29/2025: Afebrile although white blood cell count increased today to 15.9. no evidence of cholecystostomy tube issues. Overall, patient feels better. 01/30/2025: Afebrile with stable vital signs but white blood cell count again increased now to 16.8. Patient denies specific complaints including new cough, abdominal pain, new discomfort near cholecystostomy tube, diarrhea, or urinary complaints. Left arm IV site with possible early phlebitis. Right arm IV site unremarkable. 01/31/2025: Afebrile and today with decrease in white blood cell count. no new complaints today. CT scan noted and verifies proper position of cholecystostomy tube along with decrease in size of suspected pericholecystic abscess. 02/01/2025: Afebrile and white blood cell count continues to improve, now down to 11.6. clinically doing well. 02/05/2025: Development of leukocytosis and increasing transaminases along with bilirubin and alkaline phosphatase. All of these numbers improved today. Repeat CT scan 02/02 again demonstrating cholecystostomy tube in gallbladder and improvement in prei-Cholecystic fluid collection. Cholangiogram performed today demonstrating defect in the medial wall of the gallbladder resulting in extraluminal spillage of contrast which extends toward the region of the previously noted small abscess cavity located between the gallbladder fundus, the inferior margin of the left hepatic lobe, and the greater curvature of the antrum of the stomach seen on prior CT. Contrast extends into the cystic duct but no evidence of contrast within the common bile duct. Transition back from oral Augmentin to IV Unasyn. 02/06/2025: Continues to do well. No pain at cholecystostomy site. Afebrile and with resolution of leukocytosis. Transaminases continue to improve. Cholecystostomy tube fluid culture 01/25: Pansensitive E coli. Blood cultures 01/30: Negative, final. Review of Systems Review of Systems: Denies cholecystostomy tube site pain. All systems reviewed & are unremarkable except as noted in HPI and below Exam Narrative: He is awake, alert, and interactive. No distress. Normocephalic. No conjunctivitis. Normal respirations. Abdomen not significantly distended. Right cholecystostomy catheter in place without surrounding visible inflammation. No significant tenderness to insertion site palpation. Output appears to be unimpeded. No diarrhea. No rash. Objective Data Vital Signs Vital Signs: Vital Signs - 24 hr 02/05/25 16:00 02/05/25 20:00 02/05/25 20:00 Temperature Pulse Rate 92 85 Respiratory Rate Blood Pressure Pulse Oximetry Oxygen Delivery Room Air 02/05/25 21:12 02/06/25 00:00 02/06/25 04:00 Temperature 98.0 F Pulse Rate 78 83 90 Respiratory Rate 20 Blood Pressure 160/92 H Pulse Oximetry 95 Oxygen Delivery 02/06/25 04:16 02/06/25 08:00 02/06/25 08:30 Temperature 97.7 F Pulse Rate 81 88 Respiratory Rate 20 Blood Pressure 158/97 H Pulse Oximetry 91 Oxygen Delivery Room Air 02/06/25 08:32 02/06/25 08:37 02/06/25 13:53 Temperature Pulse Rate 85 74 Respiratory Rate 16 Blood Pressure 140/93 H Pulse Oximetry 93 97 Oxygen Delivery Room Air Intake/Output Intake/Output: Intake & Output 02/03/25 02/04/25 02/05/25 02/06/25 23:59 23:59 23:59 23:59 Intake Total 2092 1350 2590 1440 Output Total 2110 1925 1124 1150 Balance -18 -575 1466 290 Meds/Results Medications: Active Medications Generic Name Dose Route Start Last Admin Trade Name Freq PRN Reason Stop Dose Admin Acetaminophen 650 mg 01/21/25 02:19 01/21/25 09:30 Acetaminophen 325 Mg Tablet PO 650 mg Q4H PRN Administration Mild Pain (1-3) or Fever Amoxicillin/Clavulanate Potassium 1 tablet 02/06/25 12:00 02/06/25 12:17 Amoxicillin/Clavulanate K 875-125 Mg Tab PO 02/12/25 21:01 1 tablet Q12HR DREAD Administration Apixaban 5 mg 01/28/25 21:00 02/06/25 08:32 Apixaban 5 Mg Tablet PO 5 mg Q12HR DREAD Administration Calcium Carbonate 400 mg 02/01/25 20:00 02/01/25 21:15 Calcium Carbonate (Tums) 500 Mg (200 Mg Elemental) PO 400 mg Q6H PRN Administration Indigestion Fish Oil 1 gm 01/21/25 09:00 02/06/25 08:32 [place] 3 Polyunsat Fatty Acids 1 Gm Cap PO 1 gm DAILY DREAD Administration Fluticasone Propionate 2 spray 01/23/25 21:00 02/06/25 08:32 Fluticasone Propionate 0.05% Na Spr 16 Gm Btl (*Bkc) NASAL 2 spray Q12HR DREAD Administration Guaifenesin 1,200 mg 01/25/25 21:00 02/06/25 08:32 Guaifenesin 12 Hr 600 Mg Tabcr PO 1,200 mg Q12HR DREAD Administration Metoprolol Succinate 25 mg 01/22/25 09:00 02/06/25 08:32 Metoprolol Succinate Ext Rel 25 Mg Tabcr PO 25 mg QAM DREAD Administration Ondansetron HCl 4 mg 01/21/25 02:19 Ondansetron Inj 4 Mg/2 Ml Vial IV PUSH Q4H PRN Nausea Pantoprazole Sodium 40 mg 02/04/25 09:00 02/06/25 08:32 Pantoprazole 40 Mg Tablet PO 40 mg QAM DREAD Administration Zolpidem Tartrate 2.5 mg 01/29/25 10:15 02/05/25 21:08 Zolpidem Tartrate (*Crx) 2.5 Mg Tablet PO 2.5 mg HS PRN Administration Insomnia Radiology Results: ITS Impressions Chest/Abdomen/Pelvis CTA 01/21/25 08:52 Impression: Distended gallbladder with suspected mild pericholecystic inflammatory change, suspicious for acute cholecystitis. Correlate clinically. Consider ultrasound and/or HIDA scan for further evaluation as indicated. Mild bibasilar pulmonary edema/atelectasis. Upper Quadrant Ultrasound 01/21/25 12:09 IMPRESSION: Limited evaluation of the pancreas secondary to overlying bowel gas. Layering sludge within the distended gallbladder. Borderline gallbladder wall thickening without pericholecystic fluid. Trace surrounding inflammatory change on CT examination performed approximately 12 hours earlier with indeterminate findings on ultrasound examination. If clinical suspicion persists for acalculous cholecystitis, HIDA scan would provide additional information. Hepatobiliary Scan Nuclear Medicine 01/23/25 10:21 IMPRESSION: 1. Nonvisualization of the gallbladder and the 30 minutes following morphine administration consistent with acute cholecystitis. Chest CT 01/24/25 18:49 IMPRESSION: 1. Bilateral lower lobe airspace consolidation which may represent pneumonia and/or atelectasis. 2: Dilated gallbladder with wall thickening, pericystic cholecystic phlegmonous change and possible associated abscess involving the margin of the liver. Findings compatible with acute cholecystitis with sequela. 3: Small pleural effusions. 4: Nonobstructive left nephrolithiasis. Cholecystostomy 01/25/25 14:15 IMPRESSION: 1. Successful ultrasound-guided cholecystostomy tube placement. 2. 50 mL bile was sent for aerobic, anaerobic, and fungal cultures. 3. The catheter will be managed by Dr. Huang. A catheter cholangiogram may be performed not less than 48 hours after tube placement if clinically indicated to assess cystic duct patency. If cholecystectomy is not eventually performed and the infectious episode has resolved, the tube may be removed over a guidewire, preferably not less than 3 weeks after placement to allow time for a mature catheter tract to form to prevent bile leakage and peritonitis. Chest X-Ray 01/28/25 08:38 Impression: 1: Right basilar airspace disease may represent atelectasis or pneumonia. No significant change. 2: Subsegmental left basilar atelectasis. Abdomen CT 01/30/25 13:42 IMPRESSION: 1. Likely acute or chronic cholecystitis with percutaneous cholecystostomy tube in expected position. 2. Decrease in size of a 4.4 x 2.8 x 2.1 cm fluid collection positioned between the gallbladder, the gastric antrum and the inferior aspect of the left hepatic lobe which appears to communicate with the gallbladder through one of a couple defects in the wall of the gallbladder. 3. Small right and very small left pleural effusions with consolidation the dependent lower lobes, right greater than left with appearance favoring atelectasis over pneumonia. 4. Mild central periportal edema and minimal perihepatic ascites. 5. Wall thickening at the gastric antrum and at the hepatic flexure the colon which likely reactive related to the adjacent acute cholecystitis. Abdomen/Pelvis CT 02/02/25 15:46 IMPRESSION: 1. Cholecystostomy tube within the gallbladder with probable cholecystitis. There is a small amount of pericholecystic fluid noted with a small loculated focus adjacent to the distal stomach with probable reactive thickening of the gastric wall in this location, distinction from an ulcerative process within the stomach itself however is not excluded. Repeat exam with intravenous and oral contrast is suggested. The findings appear improved compared to the previous study. 2. Incidental findings above Cholangiogram 02/05/25 09:37 IMPRESSION: 1. Defect in the medial wall of the gallbladder resulting in extraluminal spillage of contrast which extends towards the region of the previous noted small abscess cavity located between the gallbladder fundus, the inferior margin of the left hepatic lobe and the greater curvature of the antrum of the stomach on prior CT. 2. Contrast extends into the cystic duct but no evident contrast within the common bile duct. Evaluation is however limited as contrast injection was terminated prematurely due to the contemporaneous extraluminal leakage of contrast. Labs Labs: Laboratory Results - last 24 hr 02/06/25 04:34 WBC 6.8 RBC 3.63 L Hgb 11.2 L Hct 33.9 L MCV 93.4 MCH 30.9 MCHC 33.0 RDW 13.4 Plt Count 253 MPV 9.2 Immature Gran % (Auto) 1.6 H Neut % (Auto) 56.3 Lymph % (Auto) 26.1 [place] % (Auto) 11.8 H Eos % (Auto) 2.9 Baso % (Auto) 1.3 H Lymph # (Auto) 1.77 [place] # (Auto) 0.8 H Eos # (Auto) 0.2 Baso # (Auto) 0.1 Abs Immat Gran (auto) 0.11 H Absolute Neuts (auto) 3.8 Absolute Nucleated RBC 0.000 Nucleated RBC % 0.0 Sodium 135 L Potassium 3.6 Chloride 103 Carbon Dioxide 26 Anion Gap 6 BUN 15 Creatinine 1.68 H Estim Creat Clear Calc 42 Estimated GFR 40 L Glucose 106 Calcium 8.0 L Magnesium 1.6 Total Bilirubin 0.8 AST 42 ALT 65 H Alkaline Phosphatase 229 H Total Protein 6.2 L Albumin 2.8 L
--- NOTE | 2025-02-06 14:46 | PM.PNGS ---
Progress Note: A&P Assessment and Plan (1) Transaminitis: Status: Acute Assessment and Plan: LFTs continuing to improve. Abscess from gallbladder appears stable. Labs normal. No abdominal pain. Patient surgically stable for discharge. He will follow up in outpatient clinic with Dr. Huang in 2 weeks to evaluate cholecystostomy tube and discuss laparoscopic cholecystectomy. (2) Acute cholecystitis: Code(s): K81.0 - Acute cholecystitis Status: Acute Assessment and Plan: Patient does not complain of any abdominal pain today. Cholecystostomy tube patent and draining well. (3) History of percutaneous insertion of cholecystostomy tube: Code(s): Z98.890 - Other specified postprocedural states Status: Acute Assessment and Plan: Placed 01/25/2025. Cholangiogram yesterday demonstrated extraluminal spillage of contrast towards region of previously noted small abscess cavity. No complaints of abdominal pain from patient. Nursing staff discussed cholecystostomy tube care with patient. (4) Elevated serum creatinine: Code(s): R79.89 - Other specified abnormal findings of blood chemistry Status: Chronic Assessment and Plan: 1.68 today. Stable. 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 Plan Discussed patient's case and plan of care with Dr. Huang. Subjective Subjective Date/Time Seen: 02/06/25 14:46 Patient reports: no new complaints, feels better and bowel movement Interval history: Patient doing well today. No new complaints. WBC normal. No acute events overnight. Liver enzymes normalizing. Exam Const: General: comfortable and no acute distress GI: Inspection: non-distended GI Palp: Yes Soft to palpation Auscultation: normal bowel sounds and normoactive bowel sounds Other: Cholecystostomy tube patent and draining well. Minimal bloody reddish brown fluid in bag. Objective Data Vital Signs Vital Signs: Vital Signs - 24 hr 02/05/25 16:00 02/05/25 20:00 02/05/25 20:00 Temperature Pulse Rate 92 85 Respiratory Rate Blood Pressure Pulse Oximetry Oxygen Delivery Room Air 02/05/25 21:12 02/06/25 00:00 02/06/25 04:00 Temperature 98.0 F Pulse Rate 78 83 90 Respiratory Rate 20 Blood Pressure 160/92 H Pulse Oximetry 95 Oxygen Delivery 02/06/25 04:16 02/06/25 08:00 02/06/25 08:30 Temperature 97.7 F Pulse Rate 81 88 Respiratory Rate 20 Blood Pressure 158/97 H Pulse Oximetry 91 Oxygen Delivery Room Air 02/06/25 08:32 02/06/25 08:37 02/06/25 13:53 Temperature Pulse Rate 85 74 Respiratory Rate 16 Blood Pressure 140/93 H Pulse Oximetry 93 97 Oxygen Delivery Room Air Intake/Output Intake/Output: Intake & Output 02/03/25 02/04/25 02/05/25 02/06/25 23:59 23:59 23:59 23:59 Intake Total 2092 1350 2590 1440 Output Total 2110 1925 1124 1150 Balance -18 575 1466 290 Meds/Results Medications: Active Medications Generic Name Dose Route Start Last Admin Trade Name Freq PRN Reason Stop Dose Admin Acetaminophen 650 mg 01/21/25 02:19 01/21/25 09:30 Acetaminophen 325 Mg Tablet PO 650 mg Q4H PRN Administration Mild Pain (1-3) or Fever Amoxicillin/Clavulanate Potassium 1 tablet 02/06/25 12:00 02/06/25 12:17 Amoxicillin/Clavulanate K 875-125 Mg Tab PO 02/12/25 21:01 1 tablet Q12HR DREAD Administration Apixaban 5 mg 01/28/25 21:00 02/06/25 08:32 Apixaban 5 Mg Tablet PO 5 mg Q12HR DREAD Administration Calcium Carbonate 400 mg 02/01/25 20:00 02/01/25 21:15 Calcium Carbonate (Tums) 500 Mg (200 Mg Elemental) PO 400 mg Q6H PRN Administration Indigestion Fish Oil 1 gm 01/21/25 09:00 02/06/25 08:32 [place] 3 Polyunsat Fatty Acids 1 Gm Cap PO 1 gm DAILY DREAD Administration Fluticasone Propionate 2 spray 01/23/25 21:00 02/06/25 08:32 Fluticasone Propionate 0.05% Na Spr 16 Gm Btl (*Bkc) NASAL 2 spray Q12HR DREAD Administration Guaifenesin 1,200 mg 01/25/25 21:00 02/06/25 08:32 Guaifenesin 12 Hr 600 Mg Tabcr PO 1,200 mg Q12HR DREAD Administration Metoprolol Succinate 25 mg 01/22/25 09:00 02/06/25 08:32 Metoprolol Succinate Ext Rel 25 Mg Tabcr PO 25 mg QAM DREAD Administration Ondansetron HCl 4 mg 01/21/25 02:19 Ondansetron Inj 4 Mg/2 Ml Vial IV PUSH Q4H PRN Nausea Pantoprazole Sodium 40 mg 02/04/25 09:00 02/06/25 08:32 Pantoprazole 40 Mg Tablet PO 40 mg QAM DREAD Administration Zolpidem Tartrate 2.5 mg 01/29/25 10:15 02/05/25 21:08 Zolpidem Tartrate (*Crx) 2.5 Mg Tablet PO 2.5 mg HS PRN Administration Insomnia Radiology Results: ITS Impressions Chest/Abdomen/Pelvis CTA 01/21/25 08:52 Impression: Distended gallbladder with suspected mild pericholecystic inflammatory change, suspicious for acute cholecystitis. Correlate clinically. Consider ultrasound and/or HIDA scan for further evaluation as indicated. Mild bibasilar pulmonary edema/atelectasis. Upper Quadrant Ultrasound 01/21/25 12:09 IMPRESSION: Limited evaluation of the pancreas secondary to overlying bowel gas. Layering sludge within the distended gallbladder. Borderline gallbladder wall thickening without pericholecystic fluid. Trace surrounding inflammatory change on CT examination performed approximately 12 hours earlier with indeterminate findings on ultrasound examination. If clinical suspicion persists for acalculous cholecystitis, HIDA scan would provide additional information. Hepatobiliary Scan Nuclear Medicine 01/23/25 10:21 IMPRESSION: 1. Nonvisualization of the gallbladder and the 30 minutes following morphine administration consistent with acute cholecystitis. Chest CT 01/24/25 18:49 IMPRESSION: 1. Bilateral lower lobe airspace consolidation which may represent pneumonia and/or atelectasis. 2: Dilated gallbladder with wall thickening, pericystic cholecystic phlegmonous change and possible associated abscess involving the margin of the liver. Findings compatible with acute cholecystitis with sequela. 3: Small pleural effusions. 4: Nonobstructive left nephrolithiasis. Cholecystostomy 01/25/25 14:15 IMPRESSION: 1. Successful ultrasound-guided cholecystostomy tube placement. 2. 50 mL bile was sent for aerobic, anaerobic, and fungal cultures. 3. The catheter will be managed by Dr. Huang. A catheter cholangiogram may be performed not less than 48 hours after tube placement if clinically indicated to assess cystic duct patency. If cholecystectomy is not eventually performed and the infectious episode has resolved, the tube may be removed over a guidewire, preferably not less than 3 weeks after placement to allow time for a mature catheter tract to form to prevent bile leakage and peritonitis. Chest X-Ray 01/28/25 08:38 Impression: 1: Right basilar airspace disease may represent atelectasis or pneumonia. No significant change. 2: Subsegmental left basilar atelectasis. Abdomen CT 01/30/25 13:42 IMPRESSION: 1. Likely acute or chronic cholecystitis with percutaneous cholecystostomy tube in expected position. 2. Decrease in size of a 4.4 x 2.8 x 2.1 cm fluid collection positioned between the gallbladder, the gastric antrum and the inferior aspect of the left hepatic lobe which appears to communicate with the gallbladder through one of a couple defects in the wall of the gallbladder. 3. Small right and very small left pleural effusions with consolidation the dependent lower lobes, right greater than left with appearance favoring atelectasis over pneumonia. 4. Mild central periportal edema and minimal perihepatic ascites. 5. Wall thickening at the gastric antrum and at the hepatic flexure the colon which likely reactive related to the adjacent acute cholecystitis. Abdomen/Pelvis CT 02/02/25 15:46 IMPRESSION: 1. Cholecystostomy tube within the gallbladder with probable cholecystitis. There is a small amount of pericholecystic fluid noted with a small loculated focus adjacent to the distal stomach with probable reactive thickening of the gastric wall in this location, distinction from an ulcerative process within the stomach itself however is not excluded. Repeat exam with intravenous and oral contrast is suggested. The findings appear improved compared to the previous study. 2. Incidental findings above Cholangiogram 02/05/25 09:37 IMPRESSION: 1. Defect in the medial wall of the gallbladder resulting in extraluminal spillage of contrast which extends towards the region of the previous noted small abscess cavity located between the gallbladder fundus, the inferior margin of the left hepatic lobe and the greater curvature of the antrum of the stomach on prior CT. 2. Contrast extends into the cystic duct but no evident contrast within the common bile duct. Evaluation is however limited as contrast injection was terminated prematurely due to the contemporaneous extraluminal leakage of contrast. Labs Labs: Laboratory Results - last 24 hr 02/06/25 04:34 WBC 6.8 RBC 3.63 L Hgb 11.2 L Hct 33.9 L MCV 93.4 MCH 30.9 MCHC 33.0 RDW 13.4 Plt Count 253 MPV 9.2 Immature Gran % (Auto) 1.6 H Neut % (Auto) 56.3 Lymph % (Auto) 26.1 [place] % (Auto) 11.8 H Eos % (Auto) 2.9 Baso % (Auto) 1.3 H Lymph # (Auto) 1.77 [place] # (Auto) 0.8 H Eos # (Auto) 0.2 Baso # (Auto) 0.1 Abs Immat Gran (auto) 0.11 H Absolute Neuts (auto) 3.8 Absolute Nucleated RBC 0.000 Nucleated RBC % 0.0 Sodium 135 L Potassium 3.6 Chloride 103 Carbon Dioxide 26 Anion Gap 6 BUN 15 Creatinine 1.68 H Estim Creat Clear Calc 42 Estimated GFR 40 L Glucose 106 Calcium 8.0 L Magnesium 1.6 Total Bilirubin 0.8 AST 42 ALT 65 H Alkaline Phosphatase 229 H Total Protein 6.2 L Albumin 2.8 L
== END 2025-02-06 16:05 | disposition home health service (06) | DRG 871 ==
LOC: ANHED 23:32 → ANHIMU 01-21 02:46 → ANH2MED 01-25 14:27
PROVIDERS: General Practice; Internal Medicine; Internal Medicine Infectious Disease; Internal Medicine Pulmonary Disease; Nurse Practitioner Adult Health; Nurse Practitioner Family; Physician Assistant; Surgery; Admitting Provider Internal Medicine; Emergency Provider Student in an Organized Health Care Education/Training Program; PCP Internal Medicine; Visit Provider Internal Medicine
DX: A41.9 Sepsis, unspecified organism (principal); J18.8 Other pneumonia, unspecified organism; J96.01 Acute respiratory failure with hypoxia; K81.0 Acute cholecystitis; N17.9 Acute kidney failure, unspecified; I24.89 Other forms of acute ischemic heart disease; K92.1 Melena; R65.20 Severe sepsis without septic shock; I48.91 Unspecified atrial fibrillation; T79.6XXA Traumatic ischemia of muscle, initial encounter; I10 Essential (primary) hypertension; E86.0 Dehydration; E78.5 Hyperlipidemia, unspecified; K21.9 Gastro-esophageal reflux disease without esophagitis; K52.9 Noninfective gastroenteritis and colitis, unspecified; M17.11 Unilateral primary osteoarthritis, right knee; R41.3 Other amnesia; R73.03 Prediabetes; B96.20 Unspecified Escherichia coli [E. coli] as the cause of diseases classified elsewhere; Z20.822 Contact with and (suspected) exposure to COVID-19; Z96.652 Presence of left artificial knee joint; Z87.442 Personal history of urinary calculi
CPT/HCPCS: 36415; 36600; 47490; 47531; 71045; 71250; 71275; 74160; 74176; 74177; 76705; 78227; 80048; 80053; 81001; 82375; 82550; 82565; 82805; 83050; 83605; 83690; 83735; 83880; 84145; 84484; 85018; 85025; 85027; 85055; 85610; 85730; 86140; 86738; 87040; 87070; 87075; 87101; 87205; 87449; 87637; 87641; 87899; 93005; 94002; 94640; 94668; 96365; 96366; 96367; 96375; 96376; 97110; 97116; 97162; 97166; 97530; 97535; 99285; A9270; A9537; C1729; C8929; J0282; J0295; J0692; J1163; J1644; J1650; J1836; J1938; J1956; J2185; J2270; J2470; J2543; J3373; J3475; J3480; J7030; J7040; J7120; P9047; Q9957; Q9967

== ENCOUNTER 2025-03-07 18:29 | Emergency (ER) | payer MEDICARE, SELFPAY ==
[2025-03-07] VITALS (17 sets, daily range): BP systolic 150–178; BP diastolic 111–118; PULSE 76–98; RESP 13–23; TEMP 36.3; O2SAT 91–96
--- NOTE | ~2025-03-07 | CT_ITS ---
CT abdomen pelvis w con Clinical History: hx biliary drain; n/v . Comparison: 02/02/2025 Technique: Axial images lung bases to symphysis pubis 100 mL Omnipaque 350 Coronal, sagittal reformats CT images acquired with automatic exposure control for dose reduction DLP: 1196 mGy-cm Findings: Respiratory and motion artifact. Lung bases: Clear. Visualized heart and pericardium: Coronary artery calcification. Liver: Mild intrahepatic biliary ductal dilatation. Gallbladder: Percutaneous cholecystostomy. Wall thickening. Spleen: Unremarkable. Pancreas: Unremarkable. Adrenal glands: Unremarkable. Kidneys: Right kidney- No hydronephrosis. A few tiny stones. Left kidney- No hydronephrosis. A few tiny stones. Distal esophagus/stomach: Persistent mild wall thickening along gastric antrum. Small bowel loops: Normal caliber and wall thickness. Colon: Diverticula. Mild sigmoid wall thickening likely chronic diverticular disease. Normal RLQ appendix. Nodes: No enlarged nodes. Peritoneum: No ascites. No free air. Urinary bladder: Unremarkable. Prostate: Unremarkable. Bones: No acute bony abnormality. Soft tissues: Unremarkable. Aorta: No aneurysm or dissection. IVC: Unremarkable. Main portal vein/SMV/splenic vein: Patent. IMPRESSION: 1. Gastritis persists. 2. Percutaneous cholecystostomy catheter remains in place. 3. Additional findings as above. Reviewed, dictated and finalized at location R.
--- OUTSIDE RECORDS SUMMARY | 2025-03-07 18:32 | XMS_ITS | Data Portability ---
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 Range of motion is from to 2-135 . Hip range of motion is full without discomfort. Negative Stinchfield maneuver. Mild tenderness over the medial joint line palpation. Normal stability in the knee. No edema in either lower extremity. He walks relatively well without limp. 2+ dorsalis pedis pulse. Impression: 72-year-old male who has lhae-zp-sryq osteoarthritis in the medial compartment PA flexion [...] patient more than half of this in tczu-nu-wghv conversation Not available 02/11/2023 10:36:03 03/25/2023 03/25/2023 HPI: Patient returns. He is here cortisone injection right knee. Last shot was [address] Eisenberg. He has ysji-dn-qpos medial compartment osteoarthritis. He is wanting to have his knee replaced in early July next year. He had the left 1 done in August [address] Eisenberg and it did well. He wishes to have surgery in early spring next year. Physical exam: 72-year-old male alert pleasant. He is 6 ft 2 and 266 lb BMI is 34.2. He has yrtu-of-ptvgdcwo effusion in the right knee. Range of [...] more than half the time spent in ksos-hg-mhnn care. [email or web address] Not available 05/23/2023 14:17:14 08/26/2023 08/26/2023 HPI: Patient returns. He is here wanting a cortisone injection right knee. He has moderate medial compartment osteoarthritis. He is getting ready to go to [place] on vacation in [place] and wished to have an injection before left. Physical exam: 72-year-old male alert pleasant. He has bhed-yr-roxolhuf effusion in the right knee. Range of [...] patient more than half of this in qpni-ik-ozri conversation [email or web address] Not available 08/26/2023 13:12:28 Plan of Treatment Reminders Order Date Submit Date Provider Last Modified By Organization Details Last Modified Time Details Appointments None recorded. Lab None recorded. Referral None recorded. Procedures injection/a spiration joint/bursa (PROC) - in office procedure, administere d by provider 2023 024 [email or web address] In-Office Order, Internal Use Only DO Not Attach Compendium DO Not Attach Compendium, Do Not Delete/merge, [id number] 11:28:00 injection/a spiration joint/bursa (PROC) - in office procedure, administere d by provider 2022 023 [email or web address] In-Office Order, Internal Use Only DO Not Attach Compendium DO Not Attach Compendium, Do Not Delete/merge, [id number] 09:13:03 Surgeries None recorded. Imaging XR, knee 2022 023 [email or web address] [facility] [place], [facility] [facility] [address], [place], [address], 3 19:57:10 Medication Orders Kenalog 10 mg/mL suspension for injection [address] [id number], [address] [place], [place], [id number], 4 12:34:50 Marcaine (PF) 0.5 % (5 mg/mL) injection solution [address] [id number], [address] [place], [place], [id number], 4 12:34:50 Kenalog 10 mg/mL suspension for injection [address] [id number], [address] [place], [place], [id number], 3 17:22:55 ropivacaine (PF) 5 mg/mL (0.5 %) injection solution 2022 023 [address] [facility] [facility], [address] [place], [place], [id number], 3 17:22:55 Patient TargetsNo targets recorded. Patient InstructionsNo instructions recorded. Reason for Referral None Reported. Results Created Date Observation Date Name Description Value Unit Range Abnormal Flag Note LastModifiedBy Organization Detail LastModifiedTime 02/12/20 23 XR, knee No observ ation record ed. [facility] [place] [address], [place], [address], 02/11/2023 10:32:42 Result Notes None recorded. Problems Name Problem SNOMED Code Status Onset Date Resolution Date Notes Provider Name and Address Organization Details Recorded Time Acquired trigger finger 7506363 Active Not Available [facility] 3 13:30:26 Current tear of medial cartilage AND/OR meniscus of knee Active Not Available [facility] 3 13:30:26 Knee pain Active Not Available [facility] 3 13:30:26 Osteoarthr itis 866398026 Active Not Available [facility] 3 13:30:26 Olecranon bursitis 232506738 Active Not Available [facility] 3 13:30:26 Pain of hip region 24713207 Active Not Available [facility] 3 13:30:27 Pain of right knee joint 0361641192581 00 Active 2022 CRISTY Murrell, [employer] 3 09:26:26 Osteoarthr itis of right knee joint 1145221970996 00 Active 2022 CRISTY Murrell, [employer] 3 09:12:05 Problem Notes None recorded. Procedures Surgical History Date Name Laterality Status Provider Name and Address Organization Details Recorded Time Knee Surgery completed CRISTY Murrell [employer] 02/11/2023 09:25:52 Imaging Results None recorded. Procedure Notes None recorded. Medical Equipment None [...] suspension for injection IN OFFICE 2023 active [facility]: 0003- 0494- 20 Not Available Not Available [...] administe red by the provider 03/25 completed [facility]: 0409- 4276- 17 Not Available Not Available [...] %) injection solution in office 2022 active [facility] 44148 -064- 01 Not Available Not Available Not Available Dialyvite Vitamin D3 Max 1,250 mcg (50,000 unit) tablet TAKE 1 TABLET BY MOUTH WEEKLY FOR 8 WEEKS AND THEN 1 TABLET EVERY MONTH FOR 2 MONTHS 03/25 completed Not Available Not Available Not Available vitamin K2 active Not Available Not Av ailable Not Available Fluzone High-Dose 4370-5421 (PF) 180 mcg/0.5 mL intramuscul ar syringe active Not Available Not Available N ot Available Ozempic 0.25 mg or 0.5 mg (2 mg/1.5 mL) subcutaneou s pen injector ADMINISTE R 0.5 MG UNDER THE SKIN WEEKLY 03/25 completed Not Available Not Available Not Available Fluzone High-Dose 8757-1114 (PF) 180 mcg/0.5 mL intramuscul ar syringe [...] t Available Vitals Date Recorded Body height Provider Name an d Address Organization Details Last Updated DateTime 08/26/2023 187.96 cm CRISTY [place] [email or web address] [facility] 08/26/2023 11:24:57 Date Recorded Body height Body mass index (BMI) Body weight Provider Name and Address Organization Details Last Updated DateTime 02/11/2023 187.96 cm 34.2 kg/m2 938146.57 g Charmaine Sheridan [facility] [email or web address] [facility] 02/11/2023 09:29:38 Date Recorded Body height Provider Name an d Address Organization Details Last Updated DateTime 03/25/2023 187.96 cm Charmaine Sheridan [facility] [email or web address] [facility] 03/25/2023 09:09:54 Date Recorded Body height Provider Name an d Address Organization Details Last Updated DateTime 05/20/2023 187.96 cm Charmaine Sheridan [facility] [email or web address] [facility] 05/20/2023 11:15:44 Social History None recorded. Functional Status Question Answer Note LastModified by Organizat ion Details LastModified Time What is your level of alcohol consumption? Occasional [email or web address] Information not available 02/11/2023 Mental Status None recorded. Family History Nothing Reported. Medical History Condition Response HYPERTENSION Y Past Encounters Encounter ID Performer Location Encounter Start Date Encounter Closed Date Diagnosis/Indication Diagnosis SNOMED-CT Code Diagnosis ICD10 Code Diagnosis IMO Codes Diagnosis Note [id number] Av Young MD [facility] [place] [address] [place] [address] 02/11/2023 08:57:16 02/11/2023 10:45:27 Pain of right knee joint 6592552735 45620 M25.265 [id number] Av Young MD [facility] [place] [address] [place] [address] 03/25/2023 09:06:46 03/25/2023 09:26:15 Osteoarthritis of right knee joint 5382334843 52017 M17.11 [id number] Av Young MD [facility] [place] [address] [facility] [address] [place] [address] 05/20/2023 10:59:26 05/23/2023 14:33:32 Osteoarthritis of right knee joint 0808601336 54709 M17.11 [id number] Jesus Austin MD [facility] [place] [address] [facility] [address] [place] [address] 08/26/2023 11:23:41 08/26/2023 13:18:20 Osteoarthritis of right knee joint 8305744838 47870 M17.11 Health Concerns Section Related Observation LastModified by Organization Detai ls LastModified Time None Recorded Concern Status LastModified by Organization Details LastModified Time None Recorded Advance Directives Directive None Recorded Payers Insurance Date Sequence Insurance Name Policy Number Policy Dubose Covered Member ID Dubose Member ID Guarantor Name 08/24/2023 1 [facility] (MEDICARE REPLACEMENT/ ADVANTAGE - PPO) [id number] Oleg Tay [id number] Oleg Tay 02/01/2023 1 [facility] (MEDICARE REPLACEMENT/ ADVANTAGE - PPO) [id number] Oleg Hugo Maggi [id number] Oleg Hugo Maggi Notes Date Note Type Note Provider [...] knee pain. Previous x-rays from 02/11/2023 showed baoh-jt-gzga medial compartment osteoarthritis on the PA flexion Stork view. Av Young MD [address] [place] [address], [place] [address], [place], [address], [facility] [employer] 05/23/2023 14:17:29
--- NOTE | 2025-03-07 20:32 | ECG_ITS ---
Test Date: 2025-03-07 21:22:01 Measurements Intervals [place] Rate: 92 P: 24 [place]: 155 QRS: -57 QRSD: 110 T: 46 QT: 380 QTc: 470 Interpretive Statements SINUS RHYTHM LEFT ANTERIOR FASCICULAR BLOCK LEFT VENTRICULAR HYPERTROPHY CANNOT R/O SEPTAL INFARCT, AGE INDETERMINATE BASELINE WANDER- V4 ABNORMAL ECG Compared to ECG 01/21/2025 11:07:34 Left anterior fascicular block now present Electronically Signed On 03-08-2025 06:17:18 CDT by Celso Grady D.O.
[2025-03-07 20:42] LABS: Hematocrit 40.4 % (42.0-52.0); Hemoglobin 13.9 g/dL (14.0-18.0); Immature Granulocyte Percent A 0.3 % (0-0.5); Lymphocytes Absolute Auto 2.84 K/mm3 (0.9-3.2); Mean Corpuscular HGB Conc 34.4 g/dl (32-36); Mean Corpuscular Hemoglobin 31.3 pg (26-34); Mean Corpuscular Volume 91.0 fl (80-100); Nucleated Red Blood Cells Absolute Auto 0.000 K/mm3 (0.0-0.012); Nucleated Red Blood Cells Perc 0.0 % (0.0-0.2); Platelet Count Result 208 k/mm3 (150-375); Red Blood Count 4.44 M/mm3 (4.6-6.20); White Blood Count 8.6 K/mm3 (4.5-10.0)
[2025-03-07 20:48] LABS: Add Urine Microscopic? YES; Appearance Urine Clear (Clear); Glucose Urine UA Negative (Negative); Leukocyte Esterase Ur Negative LEU/UL (Negative); Nitrate Urine Negative (Negative); Non Pathogenic Casts 0-2; Specific Grav Ur 1.013 (1.001-1.035)
--- NOTE | 2025-03-07 20:59 | ED.GENADULT ---
HPI - General Adult General Chief complaint: Unspecified Stated complaint: fall, nausea Time Seen by Provider: 03/07/25 20:14 Source: patient Limitations: no limitations History of Present Illness HPI narrative: Patient presents with nausea and NBNB vomiting yesterday and today. Family had reported that he had increased weakness and lethargy but patient denies this. It was reported that he fell but then clarified that was 4 weeks ago although he was unsure how he fell. Has had a headache. He was admitted 2 weeks ago. Gallbladder infection and now with biliary drain, 100 mL out between yesterday and today. . Hard of hearing. No loss of cosnciousness. Says he has had a little diarrhea but no blood. Does not know if he has been on antibiotics recently. has not had surgery follow up appointment yet. Denies any abdominal pain. Believes he is on anticoagulation but unknown what. Surgeon Dr Huang. RYAN 4 hours ago. Appetite ok. Related Data Home Medications ?Medication ?Instructions ?Recorded ?Confirmed ?Last Taken ?Type Prevagen 10 mg BYMOUTH . daily 03/16/24 02/21/25 Unknown History omega-3 fatty acids-fish oil 360 1 cap PO DAILY 03/16/24 02/21/25 Unknown History mg-1,200 mg capsule (Fish Oil) pyridoxine (vitamin B6) 100 mg 100 mg PO DAILY 03/16/24 02/21/25 Unknown History tablet ascorbic acid (vitamin C) 500 mg 500 mg PO DAILY 07/30/24 02/21/25 01/20/25 History capsule thiamine HCl (vitamin B1) 100 mg 100 mg PO DAILY 07/30/24 02/21/25 Unknown History capsule Allergies Allergy/AdvReac Type Severity Reaction Status Date / Time No Known Allergies Allergy Verified 03/07/25 18:30 [facility] Past Medical History Medical History Perforated gallbladder Hospital discharge follow-up Erectile dysfunction Mixed hyperlipidemia Vitamin D deficiency Positional vertigo Memory impairment Hypersomnolence Trigger finger Bilateral hand numbness Benign essential hypertension Psoriasis Stricture of esophagus Insomnia Kidney stone Hearing loss DJD (degenerative joint disease) GERD (gastroesophageal reflux disease) Pre-diabetes Surgical History Surgical History H/O insertion of cholecystostomy tube 01/25/25 Dr Huang 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 He lives by himself in [place]. 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 He is a lifetime nonsmoker. He drinks between 1-4 alcoholic beverages a month. He denies illicit substance use. Code status: Full code (patient would not want long-term ventilatory support) Surrogate decision makers: Shaunna (daughter) and son Smoking status: Never smoker Second hand tobacco smoke exposure: No Alcohol intake: current Drinks per week: 2 Alcohol use details: STATES 2-4 BEERS/WEEK Substance use: never Substance use type: does not use Lack of Transportation: No Lack of Food: Never True Current Housing: Decline to Answer Concerned About Future Housing: Decline to Answer Difficulty Paying Gas/Electric Bills: Decline to Answer Difficulty Paying for Meds: Decline to Answer Currently Unemployed: Decline to Answer Education: Decline to Answer Difficulty w/ Childcare or Family Care: Decline to Answer Living arrangements: alone Occupation/Education: retired Gender identity (if verbalized by the patient): Male Spiritual care concerns: No Agree to blood products: Yes Exam Narrative: GENERAL: Well-appearing, well-nourished, and in no acute distress. HEAD: Normocephalic, atraumatic. EYES: Non injected, non icteric ENT: Nares clear, no rhinorrhea or epistaxis. Hard of hearing but can hear when spoken to slowly and at close range NECK: Supple. No meningismus. CHEST: Speaking in full sentences. No respiratory distress. HEART: Regular rate and rhythm. . ABDOMEN: Soft, nondistended. No rigidity or guarding. Not peritoneal. No tenderness to palpation. Biliary drain intact, site clean/warm/dry. EXTREMITIES: Normal range of motion. No lower extremity edema. SKIN: Warm, dry, no rash. NEURO: No focal deficits. Alert and oriented. Answering questions. Following commands. Normal speech without aphasia or dysarthria. PSYCH: Normal mood and affect. Course Vital Signs Vital signs: Vital Signs Temperature 97.4 F L 03/07/25 18:33 Pulse Rate 91 03/07/25 18:33 Respiratory Rate 20 03/07/25 18:33 Blood Pressure 150/111 H 03/07/25 18:33 Pulse Oximetry 96 03/07/25 18:33 Oxygen Delivery Room Air 03/07/25 18:33 Temperature 97.4 F L 03/07/25 18:33 Pulse Rate 91 03/08/25 01:00 Respiratory Rate 17 03/08/25 01:00 Blood Pressure 178/114 H 03/07/25 20:33 Pulse Oximetry 88 L 03/08/25 02:30 Oxygen Delivery Room Air 03/07/25 18:33 Medical Decision Making MDM Narrative Medical decision making narrative: Patient presents with report of nausea and vomiting. Family had concerns that he had increasing weakness and lethargy but he denies. In the emergency department he is afebrile with acceptable vital signs, hypertension. Recent biliary drain placed due to perforated gallbladder, has drained 100mL from yesterday to today per patient. Patient is without a leukocytosis. Anemia stable from previous. Viral swab negative. Urinalysis without signs of infection. Normal lactic acid. CPK not elevated. Creatinine is 1.4. This appears to be baseline or even improved from baseline chronic kidney disease. Lipase normal. Troponin within normal limits. TSH normal. Patient seen ambulating with steady gait to the restroom. He is joking, commenting that his gown has been open in the back this whole time, doesn't need to be tied now. Stable for discharge; provided Rx for Zofran. Advised follow up with Dr Huang. Differential Diagnosis Differential Diagnosis: intra-abdominal abscess; biliary drain malfunction; viral swab; Medical Records Medical records reviewed: Yes I reviewed the external patient's medical records. Medical records narrative: Outpatient general surgery clinic note from 02/20/25 reviewed: Oleg is a 74 y/o male who presents to the office for a follow up for cholecystostomy tube placement on 01/25/25 during recent hospital admission. Patient denies pain. He states he is tolerating a normal diet and has an increased appetite, but is having diarrhea. Patient keeping log of output. ... It has only been about 2 weeks since tube placed and needs to kept in at least 6 weeks. I will get cholecystostomy cholangiogram in 2-3 weeks to see if cystic duct is patent. Patient to follow up in office after testing. Cholangiogram from 02/05/25 showed IMPRESSION: 1. Defect in the medial wall of the gallbladder resulting in extraluminal spillage of contrast which extends towards the region of the previous noted small abscess cavity located between the gallbladder fundus, the inferior margin of the left hepatic lobe and the greater curvature of the antrum of the stomach on prior CT. 2. Contrast extends into the cystic duct but no evident contrast within the common bile duct. Evaluation is however limited as contrast injection was terminated prematurely due to the contemporaneous extraluminal leakage of contrast. Vital Signs Vital Signs: Vital Signs Temperature 97.4 F L 03/07/25 18:33 Pulse Rate 91 03/07/25 18:33 Respiratory Rate 20 03/07/25 18:33 Blood Pressure 150/111 H 03/07/25 18:33 Pulse Oximetry 96 03/07/25 18:33 Oxygen Delivery Room Air 03/07/25 18:33 Temperature 97.4 F L 03/07/25 18:33 Pulse Rate 91 03/08/25 01:00 Respiratory Rate 17 03/08/25 01:00 Blood Pressure 178/114 H 03/07/25 20:33 Pulse Oximetry 88 L 03/08/25 02:30 Oxygen Delivery Room Air 03/07/25 18:33 Lab Data Lab results reviewed: Yes I reviewed the patient's lab results. 03/07/25 20:30 03/07/25 21:33 Labs: Lab Results 03/07/25 03/07/25 03/07/25 Range/Units 20:30 20:31 20:34 WBC 8.6 (4.5-10.0) K/mm3 RBC 4.44 L (4.6-6.20) M/mm3 Hgb 13.9 L (14.0-18.0) g/dL Hct 40.4 L (42.0-52.0) % MCV 91.0 (80-100) fl MCH 31.3 (26-34) pg MCHC 34.4 (32-36) g/dl RDW 14.2 (11.5-14.5) % Plt Count 208 (150-375) k/mm3 MPV 9.6 (7.4-10.4) fl Immature Gran % (Auto) 0.3 (0-0.5) % Neut % (Auto) 53.8 (45.5-73.1) % Lymph % (Auto) 33.1 (18.3-44.2) % [place] % (Auto) 10.9 H (2.6-8.5) % Eos % (Auto) 1.4 (0-4.4) % Baso % (Auto) 0.5 (0.2-1.2) % Lymph # (Auto) 2.84 (0.9-3.2) K/mm3 [place] # (Auto) 0.9 H (0.1-0.6) K/mm3 Eos # (Auto) 0.1 (0-0.3) K/mm3 Baso # (Auto) 0.0 (0.0-0.1) K/mm3 Abs Immat Gran (auto) 0.03 (0.00-0.031) K/mm3 Absolute Neuts (auto) 4.6 (1.3-6.7) K/mm3 Absolute Nucleated RBC 0.000 (0.0-0.012) K/mm3 Nucleated RBC % 0.0 (0.0-0.2) % PT 13.5 (11.1-14.7) Seconds INR 1.0 APTT 25.4 (22.3-36.8) Seconds Sodium (137-145) mmol/L Potassium (3.4-5.0) mmol/L Chloride (98-107) mmol/L Carbon Dioxide (22-30) mmol/L Anion Gap (4-12) mmol/L BUN (9-20) mg/dL Creatinine (0.7-1.3) mg/dL Estim Creat Clear Calc ml/min Estimated GFR (59 - ) Glucose (65-110) mg/dL Lactic Acid (0.7-2.0) mmol/L Calcium (8.4-10.2) mg/dL Total Bilirubin (0.2-1.3) mg/dL AST (17-59) U/L ALT (6-50) U/L Alkaline Phosphatase (38-126) U/L Total Creatine Kinase (55-170) U/L Troponin I (0.000-0.034) ng/mL Total Protein (6.3-8.2) g/dL Albumin (3.5-5.1) g/dL Lipase (23-300) U/L TSH (0.465-4.680) uIU/mL Urine Color Yellow (Yellow) Urine Appearance Clear (Clear) Urine pH 5.5 (5.0-9.0) Ur Specific [place] 1.013 (1.001-1.035) Urine Protein Trace (Negative) mg/dL Urine Glucose (UA) Negative (Negative) mg/dL Urine Ketones Negative (Negative) mg/dL Ur Blood (Man) Negative (Negative) Urine Nitrate Negative (Negative) Urine Bilirubin Negative (Negative) Urine Urobilinogen 0.2 (<2.0) mg/dL Leukocyte Esterase Rfl Negative (Negative) STANISLAW/UL Urine RBC 0-2 (0-2) /hpf Urine WBC 0-5 (0-3) /hpf Ur Squamous Epith Cells None seen (Few) /hpf Urine Bacteria None seen /hpf Urine Casts 0-2 Influenza A (RT-PCR) Negative (Negative) Influenza B (RT-PCR) Negative (Negative) RSV (RT-PCR) Negative (Negative) SARS-CoV-2 RNA (RT-PCR) Negative (Negative) 03/07/25 Range/Units 21:33 WBC (4.5-10.0) K/mm3 RBC (4.6-6.20) M/mm3 Hgb (14.0-18.0) g/dL Hct (42.0-52.0) % MCV (80-100) fl MCH (26-34) pg MCHC (32-36) g/dl RDW (11.5-14.5) % Plt Count (150-375) k/mm3 MPV (7.4-10.4) fl Immature Gran % (Auto) (0-0.5) % Neut % (Auto) (45.5-73.1) % Lymph % (Auto) (18.3-44.2) % [place] % (Auto) (2.6-8.5) % Eos % (Auto) (0-4.4) % Baso % (Auto) (0.2-1.2) % Lymph # (Auto) (0.9-3.2) K/mm3 [place] # (Auto) (0.1-0.6) K/mm3 Eos # (Auto) (0-0.3) K/mm3 Baso # (Auto) (0.0-0.1) K/mm3 Abs Immat Gran (auto) (0.00-0.031) K/mm3 Absolute Neuts (auto) (1.3-6.7) K/mm3 Absolute Nucleated RBC (0.0-0.012) K/mm3 Nucleated RBC % (0.0-0.2) % PT (11.1-14.7) Seconds INR APTT (22.3-36.8) Seconds Sodium 134 L (137-145) mmol/L Potassium 3.5 (3.4-5.0) mmol/L Chloride 102 (98-107) mmol/L Carbon Dioxide 24 (22-30) mmol/L Anion Gap 8 (4-12) mmol/L BUN 19 (9-20) mg/dL Creatinine 1.41 H (0.7-1.3) mg/dL Estim Creat Clear Calc 56 ml/min Estimated GFR 49 L (59 - ) Glucose 98 (65-110) mg/dL Lactic Acid 0.9 (0.7-2.0) mmol/L Calcium 9.2 (8.4-10.2) mg/dL Total Bilirubin 1.3 (0.2-1.3) mg/dL AST 32 (17-59) U/L ALT 24 (6-50) U/L Alkaline Phosphatase 86 (38-126) U/L Total Creatine Kinase 50 L (55-170) U/L Troponin I 0.026 (0.000-0.034) ng/mL Total Protein 8.2 (6.3-8.2) g/dL Albumin 4.1 (3.5-5.1) g/dL Lipase 112 (23-300) U/L TSH 2.990 (0.465-4.680) uIU/mL Urine Color (Yellow) Urine Appearance (Clear) Urine pH (5.0-9.0) Ur Specific [place] (1.001-1.035) Urine Protein (Negative) mg/dL Urine Glucose (UA) (Negative) mg/dL Urine Ketones (Negative) mg/dL Ur Blood (Man) (Negative) Urine Nitrate (Negative) Urine Bilirubin (Negative) Urine Urobilinogen (<2.0) mg/dL Leukocyte Esterase Rfl (Negative) STANISLAW/UL Urine RBC (0-2) /hpf Urine WBC (0-3) /hpf Ur Squamous Epith Cells (Few) /hpf Urine Bacteria /hpf Urine Casts Influenza A (RT-PCR) (Negative) Influenza B (RT-PCR) (Negative) RSV (RT-PCR) (Negative) SARS-CoV-2 RNA (RT-PCR) (Negative) Imaging Data Radiologist's impression: CT Abd & Pelvis with contrast STat Rad: compared to prior 02/02/2025: Motion degraded. Percutaneous cholecystostomy tube adequately positioned, no gallbladder dilation. No acute finding. ECG Data EKG #1: Attestation: I personally reviewed and interpreted this ECG as follows: ECG completion date: 03/07/25 ECG completion time: 21:22 Prior ECG tracings: available for review (01/21/25) Interpretation: Normal sinus rhythm at a rate of 92 beats per minute. IA interval 155. QRS 110. QT/ QTC 380/470. Poor R-wave progression across the precordial leads. No T-wave inversion. Left anterior fascicular block with rS complexes in leads II, III, aVF (small R waves, deep S waves), qR complexes in lead I , avL (small Q waves and tall R waves) and left axis deviation with Leads II, III and aVF negative and leads I and aVL positive. Discharge Plan Discharge Clinical Impression: Normocytic anemia, Nausea & vomiting, Chronic kidney disease Patient Disposition: Home Condition: Stable Instructions: Antibiotic Form, Chronic Kidney Disease (ED), Chronic Kidney Disease Diet (DC), Acute Nausea and Vomiting (DC), Anemia (ED) Additional Instructions: Your work up was reassuring including labs, urine, and CT abdomen/pelvis. If your nausea/vomiting occurs again, Balaji may help. Call Dr Huang's office this morning to discuss next steps for a follow up appointment (if it can be scheduled). Return if new/worsening symptoms. Patient Language: Moldovan Prescriptions: New ondansetron 4 mg tablet,disintegrating 4 mg PO Q8H PRN (Reason: nausea and vomiting) Qty: 7 0RF No Action pyridoxine (vitamin B6) 100 mg tablet 100 mg PO DAILY Prevagen 10 mg BYMOUTH . daily omega-3 fatty acids-fish oil [Fish Oil] 360-1,200 mg capsule 1 cap PO DAILY pravastatin 40 mg tablet See Rx Instructions .ROUTE .COMPLEX Qty: 90 1RF Dose Instruction: TAKE 1 TABLET BY MOUTH DAILY Rx Instructions: TAKE 1 TABLET BY MOUTH DAILY fluticasone propionate [Flonase Allergy Relief] 50 mcg/actuation spray,suspension 2 spray intranasal BID Qty: 16 12RF Rx Instructions: administer into each nostril. Aim back/up/out metoprolol succinate [Toprol XL] 25 mg Tablet Extended Release 24 Hr 25 mg PO QAM Qty: 30 1RF Eliquis 5 mg Tablet 5 mg PO Q12HR Qty: 60 1RF amoxicillin-pot clavulanate 875-125 mg tablet 1 tablet PO Q12H Qty: 14 0RF thiamine HCl (vitamin B1) 100 mg capsule 100 mg PO DAILY ascorbic acid (vitamin C) 500 mg capsule 500 mg PO DAILY zolpidem 10 mg tablet 10 mg PO QHS Qty: 30 0RF omeprazole 40 mg capsule,delayed release(DR/EC) See Rx Instructions .ROUTE .COMPLEX Qty: 180 1RF Dose Instruction: TAKE 1 CAPSULE BY MOUTH TWICE DAILY Rx Instructions: TAKE 1 CAPSULE BY MOUTH TWICE DAILY donepezil 5 mg tablet 5 mg PO QHS Qty: 90 1RF Follow-up/Referrals: Anshul Mason MD [Primary Care Provider, Internal Medicine] Randall Huang MD [Physician, General Surgery] Time of Disposition: 02:25
[2025-03-07 21:18] LABS: Influenza A QL RT-PCR Negative (Negative); Influenza B QL RT-PCR Negative (Negative); RSV RNA, RT-PCR Negative (Negative); SARS-CoV-2 RNA PCR Negative (Negative)
[2025-03-07 21:35] LABS: INR 1.0; Partial Thromboplastin Time 25.4 Seconds (22.3-36.8); Prothrombin Time 13.5 Seconds (11.1-14.7)
[2025-03-07 21:58] LABS: Alanine Aminotransferase 24 U/L (6-50); Albumin Level 4.1 g/dL (3.5-5.1); Alkaline Phosphatase 86 U/L (38-126); Anion Gap 8 mmol/L (4-12); Aspartate Amino Transferase 32 U/L (17-59); Bilirubin,Total 1.3 mg/dL (0.2-1.3); Blood Urea Nitrogen 19 mg/dL (9-20); Calcium 9.2 mg/dL (8.4-10.2); Carbon Dioxide 24 mmol/L (22-30); Chloride 102 mmol/L (98-107); Creatine Kinase 50 U/L (55-170); Estimated CRCL calculation 56 ml/min; Estimated Glomerular Filt Rate 49; Glucose 98 mg/dL (65-110); Lipase 112 U/L (23-300); Potassium 3.5 mmol/L (3.4-5.0); Sodium 134 mmol/L (137-145); Total Protein 8.2 g/dL (6.3-8.2)
[2025-03-07 22:05] LABS: Troponin I 0.026 ng/mL (0.000-0.034)
[2025-03-07 22:24] LABS: Thyroid Stimulating Hormone 2.990 uIU/mL (0.465-4.680)
[2025-03-08] VITALS (9 sets, daily range): PULSE 86–96; RESP 16–24; O2SAT 88–96
== END 2025-03-08 03:02 | disposition home or self-care (01) ==
PROVIDERS: Emergency Provider Student in an Organized Health Care Education/Training Program; PCP Internal Medicine
DX: R11.2 Nausea with vomiting, unspecified (principal); D64.9 Anemia, unspecified; I12.9 Hypertensive chronic kidney disease with stage 1 through stage 4 chronic kidney disease, or unspecified chronic kidney disease; N18.9 Chronic kidney disease, unspecified; Z20.822 Contact with and (suspected) exposure to COVID-19; E78.2 Mixed hyperlipidemia; E55.9 Vitamin D deficiency, unspecified; R73.03 Prediabetes; L40.9 Psoriasis, unspecified; K21.9 Gastro-esophageal reflux disease without esophagitis; Z87.442 Personal history of urinary calculi; Z96.652 Presence of left artificial knee joint; Z79.01 Long term (current) use of anticoagulants; Z79.899 Other long term (current) drug therapy
CPT/HCPCS: 36415; 74177; 80053; 81001; 82550; 83605; 83690; 84443; 84484; 85025; 85610; 85730; 87637; 93005; 99284; Q9967

== ENCOUNTER 2025-03-13 10:30 | Outpatient (CLI) | payer MEDICARE, SELFPAY ==
--- NOTE | ~2025-03-13 | XR_ITS ---
EXAMINATION: XR catheter cholangiogram DATE: 03/13/2025 11:47 INDICATION: Intraoperative evaluation during laparoscopic cholecystectomy TECHNIQUE: 11 fluoroscopic images of the right upper quadrant were obtained during injection of 20 mL Omnipaque 240 water-soluble contrast into the patient's percutaneous cholecystostomy tube. Residual contrast was aspirated from the gallbladder and the tube was flushed and reaspirated with 10 mL sterile saline at the conclusion of the procedure. The cholecystostomy tube was then reattached to gravity drainage. The amount of fluoroscopy time used during this procedure was 0.4 minutes. Total DAP was 4.44 Gycm^2. COMPARISON: None. FINDINGS: Distal loop of the percutaneous cholecystostomy tube is positioned within the fundus of the gallbladder. Contrast injection demonstrates filling of the gallbladder with contrast extending along the patent cystic duct and common bile duct, draining promptly into the duodenum. There is also some reflux of contrast into the central intrahepatic biliary tree which appears normal. No evident strictures or other mucosal irregularities or filling defects to suggest choledocholithiasis. IMPRESSION: 1. No filling defects or strictures within the cystic or common bile ducts. Reviewed, dictated and finalized at location A.
== END 2025-03-13 10:31 | disposition home or self-care (01) ==
PROVIDERS: PCP Internal Medicine; Visit Provider Surgery
DX: K80.10 Calculus of gallbladder with chronic cholecystitis without obstruction (principal)
CPT/HCPCS: 47531

== ENCOUNTER 2025-03-15 19:39 | Inpatient (IN) | payer MEDICARE, SELFPAY ==
[2025-03-15] VITALS (23 sets, daily range): BP systolic 137–180; BP diastolic 67–125; PULSE 0–101; RESP 13–32; TEMP 37.2; O2SAT 91–97
--- NOTE | ~2025-03-15 | CT_ITS ---
CT HEAD NON-CONTRAST Clinical History: AMS Comparison: CT brain 07/03/2024 Technique: Unenhanced axial images skull base to vertex Coronal, sagittal reformats CT images acquired with automatic exposure control for dose reduction DLP: 1513 mGy-cm Findings: Significant motion artifact. White matter changes typically chronic microvascular ischemic disease. Sulci, ventricles: Unremarkable. No intracerebral hemorrhage. No evidence acute territorial infarct. No mass effect, midline shift. Bony calvarium intact. Visualized paranasal sinuses: Sphenoid disease. Mastoid air cells: Clear. IMPRESSION: 1. No acute intracranial findings given significant motion artifact. Reviewed, dictated and finalized at location R.
--- NOTE | ~2025-03-15 | XR_ITS ---
Examination: XR chest 1V portable Clinical History: dyspnea Comparison: Chest x-ray one day prior Technique: Portable AP Findings: Cardiomegaly. Mildly increased interstitial markings. Right basilar linear scar or atelectasis. No acute bony abnormality. IMPRESSION: 1. Mild interstitial pulmonary edema. Reviewed, dictated and finalized at location R.
--- NOTE | ~2025-03-15 | XR_ITS ---
EXAMINATION: XR chest 1V portable COMPARISON: No comparisons available. HISTORY: Possible sepsis FINDINGS: Scattered bilateral small infiltrates. Moderate pulmonary venous congestion. No pneumothorax. Moderate cardiomegaly. Mediastinal and hilar contours are within normal limits. Bony thorax no acute abnormality. Miscellaneous: None Impression: CHF. Superimposed probable pneumonia Reviewed, dictated and finalized at location P. Impression: CHF. Superimposed probable pneumonia
--- NOTE | ~2025-03-15 | CT_ITS ---
CHEST ABDOMEN PELVIS WITH CONTRAST CLINICAL HISTORY: Sepsis . COMPARISON: Chest x-ray today CT abdomen and pelvis 03/07/2025 TECHNIQUE: Helical CT performed from thoracic inlet to symphysis pubis 100 mL IV contrast Coronal, sagittal reformats. Multi planar MIPS CT images acquired with automatic exposure control for dose reduction DLP: 1844 mGy-cm FINDINGS: CHEST- Lungs/Pleura: Mild interlobular septal thickening. Dependent changes. Thoracic Aorta: No dissection. No aneurysm. Pulmonary arteries: Normal caliber. Heart: Coronary artery calcifications. Cardiomegaly. Tracheobronchial tree: Patent. Nodes: No enlarged nodes. Bones: No acute bony abnormality. Soft tissues: Unremarkable. ABDOMEN/PELVIS- Liver: Mild intrahepatic biliary ductal dilatation. Gallbladder: Percutaneous cholecystostomy. Contracted and wall thickening. Spleen: Unremarkable. Pancreas: Unremarkable. Adrenal glands: Unremarkable. Kidneys: Tiny stones previously seen poorly seen today. Right kidney- No hydronephrosis. No renal stones. Left kidney- No hydronephrosis. No renal stones. Distal esophagus/stomach: Mild gastritis persists. Small bowel loops: Normal caliber and wall thickness. Colon: Diverticula. Normal caliber and wall thickness. Normal RLQ appendix. Nodes: No enlarged nodes. Peritoneum: No ascites. No free air. Urinary bladder: Unremarkable. Prostate: Enlarged. Bones: No acute bony abnormality. Soft tissues: Unremarkable. Aorta: No aneurysm or dissection. IVC: Unremarkable. Main portal vein/SMV/splenic vein: Patent. IMPRESSION: CHEST- 1. No acute findings. ABDOMEN/PELVIS- 1. No acute findings or significant change from prior exam. 2. Mild persisting gastritis. 3. Percutaneous cholecystostomy remains in place. Reviewed, dictated and finalized at location R.
--- NOTE | 2025-03-15 20:53 | ECG_ITS ---
Test Date: 2025-03-15 21:05:12 Measurements Intervals Sims Rate: 96 P: -8 NM: 135 QRS: -46 QRSD: 120 T: 56 QT: 365 QTc: 462 Interpretive Statements SINUS RHYTHM LEFT ANTERIOR FASCICULAR BLOCK VOLTAGE CRITERIA FOR LVH CANNOT R/O SEPTAL INFARCT, AGE INDETERMINATE ABNORMAL ECG Compared to ECG 03/07/2025 21:22:01 No significant changes Electronically Signed On 03-16-2025 08:42:26 CDT by Celso Grady D.O.
--- NOTE | 2025-03-15 21:10 | ED.FEVER ---
HPI - Fever General Chief Complaint: Fever Stated Complaint: fever Time Seen by Provider: 03/15/25 20:54 Source: patient and family Mode of arrival: EMS Limitations: altered mental status History of Present Illness HPI Narrative: Patient is a 74-year-old male presents to the emergency department accompanied by his daughter by EMS for fever, confusion. Patient is oriented to person place and time. Patient has been overall more confused over the past 48 hours, more tired and sleeping all day, that of a fever yesterday and was given Tylenol and fever returned again today. Patient today cholecystostomy placed recently at was initially draining clear but is not draining green appearing fluid today. Patient was recently admitted for pneumonia, sepsis, rhabdomyolysis. Patient denies any pain anywhere. Related Data Home Medications ?Medication ?Instructions ?Recorded ?Confirmed ?Last Taken ?Type Prevagen 10 mg BYMOUTH . daily 03/16/24 02/21/25 Unknown History omega-3 fatty acids-fish oil 360 1 cap PO DAILY 03/16/24 02/21/25 Unknown History mg-1,200 mg capsule (Fish Oil) pyridoxine (vitamin B6) 100 mg 100 mg PO DAILY 03/16/24 02/21/25 Unknown History tablet ascorbic acid (vitamin C) 500 mg 500 mg PO DAILY 07/30/24 02/21/25 01/20/25 History capsule thiamine HCl (vitamin B1) 100 mg 100 mg PO DAILY 07/30/24 02/21/25 Unknown History capsule Allergies Allergy/AdvReac Type Severity Reaction Status Date / Time No Known Allergies Allergy Verified 03/07/25 18:30 Review of Systems Review of Systems: A 10 system review of systems was completed on the patient and is negative except for what is stated in the HPI. Nursing and ancillary documentation was reviewed. [facility]LY [facility] Past Medical History Medical History Perforated gallbladder Hospital discharge follow-up Erectile dysfunction Mixed hyperlipidemia Vitamin D deficiency Positional vertigo Memory impairment Hypersomnolence Trigger finger Bilateral hand numbness Benign essential hypertension Psoriasis Stricture of esophagus Insomnia Kidney stone Hearing loss DJD (degenerative joint disease) GERD (gastroesophageal reflux disease) Pre-diabetes Surgical History Surgical History H/O insertion of cholecystostomy tube 01/25/25 Dr Huang 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 He lives by himself in [place] drives. 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 He is a lifetime nonsmoker. He drinks between 1-4 alcoholic beverages a month. He denies illicit substance use. Code status: Full code (patient would not want long-term ventilatory support) Surrogate decision makers: Shaunna (daughter) and son Smoking status: Never smoker Second hand tobacco smoke exposure: No Alcohol intake: current Drinks per week: 2 Alcohol use details: STATES 2-4 BEERS/WEEK Substance use: never Substance use type: does not use Lack of Transportation: No Lack of Food: Never True Current Housing: Decline to Answer Concerned About Future Housing: Decline to Answer Difficulty Paying Gas/Electric Bills: Decline to Answer Difficulty Paying for Meds: Decline to Answer Currently Unemployed: Decline to Answer Education: Decline to Answer Difficulty w/ Childcare or Family Care: Decline to Answer Living arrangements: alone Occupation/Education: retired Gender identity (if verbalized by the patient): Male Spiritual care concerns: No Agree to blood products: Yes Exam Narrative: CONST: No acute distress. HENMT: Head is normocephalic and atraumatic. Dry mucous membranes. No posterior oropharynx erythema. EYES: No scleral icterus. No conjunctival injection or pallor. PERRL. NECK: No meningeal signs. RESP: Able to speak in full sentences. CTAB. Tachypnea. CARDIO: Regular rate. Regular rhythm. 2+ DP and radial pulses bilaterally. GI: Nondistended. No tenderness to palpation. Soft. Cholecystostomy drain in place draining green fluid in the collection bag. : No CVA tenderness to palpation. SKIN: No rashes or lesions noted on exposed skin. NEURO: Oriented x3. Moves all extremities. No focal neurological deficits. Patient is confused. EXTREM/MSK/BACK: No pedal edema. PSYCH: Normal affect. Course Vital Signs Vital signs: Vital Signs Temperature 98.9 F 03/15/25 19:30 Pulse Rate 95 03/15/25 19:30 Respiratory Rate 30 H 03/15/25 19:30 Blood Pressure 156/95 H 03/15/25 19:30 Pulse Oximetry 91 03/15/25 19:30 Oxygen Delivery Room Air 03/15/25 19:30 Temperature 98.9 F 03/15/25 19:30 Pulse Rate 87 03/16/25 03:41 Respiratory Rate 30 H 03/16/25 03:41 Blood Pressure 156/95 H 03/15/25 19:30 Pulse Oximetry 91 03/15/25 19:30 Oxygen Delivery Room Air 03/15/25 19:30 MDM - Fever MDM Narrative Medical decision making narrative: Patient presents with the above complaint. Initial vitals are remarkable for tachypnea, pulse oximetry 91% on room air. Physical examination as noted above. Differential diagnosis includes was not limited to: UTI, sepsis, pneumonia, rhabdomyolysis, metabolic derangement, dehydration, thyroid dysfunction, ACS, hepatobiliary pathology, pancreatitis, bowel obstruction, meningitis, other acute surgical abdominal process. Patient does not have any focal neurological deficits. No nuchal rigidity. Plan discussed: Blood cultures, 30 cc/kg IV fluid bolus, EKG, empiric antibiotics, CT head, CT chest abdomen pelvis, laboratory analysis, continues cardiac monitoring, continuous pulse oximetry, supplemental oxygen p.r.n.. CT chest reveals bibasilar atelectatic changes. CT abdomen pelvis reveals cholecystostomy tube, mild diverticulosis, mildly enlarged prostate. CT of the head is limited secondary to motion artifact, no evidence of acute intracranial pathology. Chronic sphenoid sinusitis. EKG shows a sinus rhythm, rate of 96, left anterior fascicular block, no ST elevations or depressions, no T-wave abnormalities, no significant change from previous EKG on file March 07, 2025. Rectal temperature is elevated, Tylenol ordered. ABG ordered. ABG shows a pH of 7.483, pCO2 of 31.5, PaO2 of 65.1. Patient has been order Lasix for diuresis.. Antibiotics have been place. Will start patient on CPAP for tachypnea. I spoke with the hospitalist on-call who has accepted the patient for admission. Medical Records Attestation: I reviewed the patient's medical records. Lab Data Attestation: I reviewed the patient's lab results. Lab results narrative: CBC reveals a white blood cell count of 8.8, hemoglobin of 13. Coags reveal no significant abnormalities. Comprehensive metabolic panel reveals a sodium 132, chloride 96, BUN 24, creatinine 1.63 0 glucose 112 for total bilirubin 2.6. CRP is 14.6. Troponin is 0.062 with repeat troponin of 0.074. BNP is 2550. Lipase of 52. Procalcitonin is 1.0. TSH is 2.45. Urinalysis reveals 2+ protein. Ethyl alcohol is less than 10. Rapid influenza a and COVID and RSV testing are negative. Magnesium is 1.9. Lactic acid is 1.2. Phosphorus is 3.4. 03/15/25 22:41 03/15/25 22:35 Labs: Lab Results 03/15/25 03/15/25 03/15/25 Range/Units 22:35 22:36 22:41 WBC 8.8 (4.5-10.0) K/mm3 RBC 4.16 L (4.6-6.20) M/mm3 Hgb 13.0 L (14.0-18.0) g/dL Hct 38.6 L (42.0-52.0) % MCV 92.8 (80-100) fl MCH 31.3 (26-34) pg MCHC 33.7 (32-36) g/dl RDW 14.4 (11.5-14.5) % Plt Count 145 L (150-375) k/mm3 MPV 9.3 (7.4-10.4) fl Immature Gran % (Auto) 0.5 (0-0.5) % Neut % (Auto) 70.3 (45.5-73.1) % Lymph % (Auto) 15.2 L (18.3-44.2) % [place] % (Auto) 13.7 H (2.6-8.5) % Eos % (Auto) 0.0 (0-4.4) % Baso % (Auto) 0.3 (0.2-1.2) % Lymph # (Auto) 1.34 (0.9-3.2) K/mm3 [place] # (Auto) 1.2 H (0.1-0.6) K/mm3 Eos # (Auto) 0.0 (0-0.3) K/mm3 Baso # (Auto) 0.0 (0.0-0.1) K/mm3 Abs Immat Gran (auto) 0.04 H (0.00-0.031) K/mm3 Absolute Neuts (auto) 6.2 (1.3-6.7) K/mm3 Absolute Nucleated RBC 0.000 (0.0-0.012) K/mm3 Nucleated RBC % 0.0 (0.0-0.2) % % Immature Plt Fraction 1.3 (0.9-11.2) % PT 15.6 H (11.1-14.7) Seconds INR 1.2 APTT 24.7 (22.3-36.8) Seconds Sodium 132 L (137-145) mmol/L Potassium 3.7 (3.4-5.0) mmol/L Chloride 96 L (98-107) mmol/L Carbon Dioxide 26 (22-30) mmol/L Anion Gap 10 (4-12) mmol/L BUN 24 H (9-20) mg/dL Creatinine 1.63 H (0.7-1.3) mg/dL Estim Creat Clear Calc 49 ml/min Estimated GFR 41 L (59 - ) Glucose 112 H (65-110) mg/dL Lactic Acid 1.2 (0.7-2.0) mmol/L Calcium 9.1 (8.4-10.2) mg/dL Phosphorus 3.4 (2.5-4.5) mg/dL Magnesium 1.9 (1.6-2.3) mg/dL Total Bilirubin 2.6 H (0.2-1.3) mg/dL AST 29 (17-59) U/L ALT 24 (6-50) U/L Alkaline Phosphatase 71 (38-126) U/L Total Creatine Kinase 77 (55-170) U/L Troponin I 0.062 H* (0.000-0.034) ng/mL C-Reactive Protein 14.6 H (<1.0) mg/dL NT-Pro-B Natriuret Pep 2550 H (19.9-100) pg/mL Total Protein 8.0 (6.3-8.2) g/dL Albumin 4.0 (3.5-5.1) g/dL Lipase 52 (23-300) U/L Procalcitonin 1.0 ng/mL TSH (Reflex) 2.450 (0.465-4.68) uIU/mL Urine Color (Yellow) Urine Appearance (Clear) Urine pH (5.0-9.0) Ur Specific [place] (1.001-1.035) Urine Protein (Negative) mg/dL Urine Glucose (UA) (Negative) mg/dL Urine Ketones (Negative) mg/dL Ur Blood (Man) (Negative) Urine Nitrate (Negative) Urine Bilirubin (Negative) Urine Urobilinogen (<2.0) mg/dL Add Ur Microanalysis Leukocyte Esterase Rfl (Negative) STANISLAW/UL Urine RBC (0-2) /hpf Urine WBC (0-3) /hpf Ur Squamous Epith Cells (Few) /hpf Urine Bacteria /hpf Urine Casts Nasal MRSA (PCR) (NOT DETECTE) Ethyl Alcohol < 10 (<10) mg/dL Influenza A (RT-PCR) (Negative) Influenza B (RT-PCR) (Negative) RSV (RT-PCR) (Negative) SARS-CoV-2 RNA (RT-PCR) (Negative) 03/15/25 03/15/25 03/16/25 Range/Units 23:54 23:55 01:56 WBC (4.5-10.0) K/mm3 RBC (4.6-6.20) M/mm3 Hgb (14.0-18.0) g/dL Hct (42.0-52.0) % MCV (80-100) fl MCH (26-34) pg MCHC (32-36) g/dl RDW (11.5-14.5) % Plt Count (150-375) k/mm3 MPV (7.4-10.4) fl Immature Gran % (Auto) (0-0.5) % Neut % (Auto) (45.5-73.1) % Lymph % (Auto) (18.3-44.2) % [place] % (Auto) (2.6-8.5) % Eos % (Auto) (0-4.4) % Baso % (Auto) (0.2-1.2) % Lymph # (Auto) (0.9-3.2) K/mm3 [place] # (Auto) (0.1-0.6) K/mm3 Eos # (Auto) (0-0.3) K/mm3 Baso # (Auto) (0.0-0.1) K/mm3 Abs Immat Gran (auto) (0.00-0.031) K/mm3 Absolute Neuts (auto) (1.3-6.7) K/mm3 Absolute Nucleated RBC (0.0-0.012) K/mm3 Nucleated RBC % (0.0-0.2) % % Immature Plt Fraction (0.9-11.2) % PT (11.1-14.7) Seconds INR APTT (22.3-36.8) Seconds Sodium (137-145) mmol/L Potassium (3.4-5.0) mmol/L Chloride (98-107) mmol/L Carbon Dioxide (22-30) mmol/L Anion Gap (4-12) mmol/L BUN (9-20) mg/dL Creatinine (0.7-1.3) mg/dL Estim Creat Clear Calc ml/min Estimated GFR (59 - ) Glucose (65-110) mg/dL Lactic Acid (0.7-2.0) mmol/L Calcium (8.4-10.2) mg/dL Phosphorus (2.5-4.5) mg/dL Magnesium (1.6-2.3) mg/dL Total Bilirubin (0.2-1.3) mg/dL AST (17-59) U/L ALT (6-50) U/L Alkaline Phosphatase (38-126) U/L Total Creatine Kinase (55-170) U/L Troponin I 0.074 H* (0.000-0.034) ng/mL C-Reactive Protein (<1.0) mg/dL NT-Pro-B Natriuret Pep (19.9-100) pg/mL Total Protein (6.3-8.2) g/dL Albumin (3.5-5.1) g/dL Lipase (23-300) U/L Procalcitonin ng/mL TSH (Reflex) (0.465-4.68) uIU/mL Urine Color Yellow (Yellow) Urine Appearance Clear (Clear) Urine pH 5.5 (5.0-9.0) Ur Specific [place] 1.021 (1.001-1.035) Urine Protein 2+ H (Negative) mg/dL Urine Glucose (UA) Negative (Negative) mg/dL Urine Ketones Negative (Negative) mg/dL Ur Blood (Man) Trace (Negative) Urine Nitrate Negative (Negative) Urine Bilirubin Negative (Negative) Urine Urobilinogen 0.2 (<2.0) mg/dL Add Ur Microanalysis Reviewed Leukocyte Esterase Rfl Negative (Negative) STANISLAW/UL Urine RBC 0-2 (0-2) /hpf Urine WBC 0-5 (0-3) /hpf Ur Squamous Epith Cells None seen (Few) /hpf Urine Bacteria None seen /hpf Urine Casts 3-5 Nasal MRSA (PCR) Not detected (NOT DETECTE) Ethyl Alcohol (<10) mg/dL Influenza A (RT-PCR) Negative (Negative) Influenza B (RT-PCR) Negative (Negative) RSV (RT-PCR) Negative (Negative) SARS-CoV-2 RNA (RT-PCR) Negative (Negative) ABG Data ABG results: 03/16/25 03:22 Puncture Site Right radial ABG pH 7.483 H ABG pCO2 31.5 L ABG pO2 65.1 L ABG PO2/FiO2 Ratio 2.33 ABG HCO3 23.1 ABG O2 Saturation 94.4 L ABG O2 Content 16.7 ABG Base Excess 0.4 A-a Gradient 97.4 Oxyhemoglobin 91.8 Total Hemoglobin 12.9 O2 Delivery Device Nasal cannula O2 Liters/Min 2.0 FiO2 28 Imaging Data Attestation: I personally reviewed and interpreted this imaging study as follows: ECG Data EKG #1: Attestation: I personally reviewed and interpreted this ECG as follows: ECG completion date: 03/15/25 ECG completion time: 21:05 Interpretation: Rate of 96, rhythm is sinus rhythm, axis is left axis deviation, left anterior fascicular block present, moderate blood which criteria for LVH, Q-waves present in V1, no ST elevation or depressions, no T-wave abnormalities, no significant change from previous EKG on file from March 07, 2025. Discharge Plan Discharge Clinical Impression: Sepsis, Dyspnea, Heart failure, Altered mental status, Hypoxemia, Elevated troponin Patient Disposition: Still a Patient Condition: Serious Patient Language: [place] Prescriptions: No Action pyridoxine (vitamin B6) 100 mg tablet 100 mg PO DAILY Prevagen 10 mg BYMOUTH . daily omega-3 fatty acids-fish oil [Fish Oil] 360-1,200 mg capsule 1 cap PO DAILY pravastatin 40 mg tablet See Rx Instructions .ROUTE .COMPLEX Qty: 90 1RF Dose Instruction: TAKE 1 TABLET BY MOUTH DAILY Rx Instructions: TAKE 1 TABLET BY MOUTH DAILY fluticasone propionate [Flonase Allergy Relief] 50 mcg/actuation spray,suspension 2 spray intranasal BID Qty: 16 12RF Rx Instructions: administer into each nostril. Aim back/up/out metoprolol succinate [Toprol XL] 25 mg Tablet Extended Release 24 Hr 25 mg PO QAM Qty: 30 1RF Eliquis 5 mg Tablet 5 mg PO Q12HR Qty: 60 1RF amoxicillin-pot clavulanate 875-125 mg tablet 1 tablet PO Q12H Qty: 14 0RF ondansetron 4 mg tablet,disintegrating 4 mg PO Q8H PRN (Reason: nausea and vomiting) Qty: 7 0RF thiamine HCl (vitamin B1) 100 mg capsule 100 mg PO DAILY ascorbic acid (vitamin C) 500 mg capsule 500 mg PO DAILY zolpidem 10 mg tablet 10 mg PO QHS Qty: 30 0RF omeprazole 40 mg capsule,delayed release(DR/EC) See Rx Instructions .ROUTE .COMPLEX Qty: 180 1RF Dose Instruction: TAKE 1 CAPSULE BY MOUTH TWICE DAILY Rx Instructions: TAKE 1 CAPSULE BY MOUTH TWICE DAILY donepezil 5 mg tablet 5 mg PO QHS Qty: 90 1RF Follow-up/Referrals: Anshul Mason MD [Primary Care Provider, Internal Medicine] Time of Disposition: 04:19
[2025-03-15 22:48] LABS: Hematocrit 38.6 % (42.0-52.0); Hemoglobin 13.0 g/dL (14.0-18.0); Immature Granulocyte Percent A 0.5 % (0-0.5); Immature Platelet Fraction Pct 1.3 % (0.9-11.2); Lymphocytes Absolute Auto 1.34 K/mm3 (0.9-3.2); Mean Corpuscular HGB Conc 33.7 g/dl (32-36); Mean Corpuscular Hemoglobin 31.3 pg (26-34); Mean Corpuscular Volume 92.8 fl (80-100); Nucleated Red Blood Cells Absolute Auto 0.000 K/mm3 (0.0-0.012); Nucleated Red Blood Cells Perc 0.0 % (0.0-0.2); Platelet Count Result 145 k/mm3 (150-375); Red Blood Count 4.16 M/mm3 (4.6-6.20); White Blood Count 8.8 K/mm3 (4.5-10.0)
[2025-03-15] MEDS: SODIUM CHLORIDE 0.9% IV 1,000 ML 999 ML IV CONT ×3 (22:49→22:50)
[2025-03-15] MEDS: CEFEPIME 2 GM in SODIUM CHLORIDE 0.9% IV 50 ML 100 ML IVPB (22:50)
[2025-03-15 23:03] LABS: INR 1.2; Prothrombin Time 15.6 Seconds (11.1-14.7)
[2025-03-15 23:04] LABS: Partial Thromboplastin Time 24.7 Seconds (22.3-36.8)
[2025-03-15 23:07] LABS: Alanine Aminotransferase 24 U/L (6-50); Albumin Level 4.0 g/dL (3.5-5.1); Alkaline Phosphatase 71 U/L (38-126); Anion Gap 10 mmol/L (4-12); Aspartate Amino Transferase 29 U/L (17-59); Bilirubin,Total 2.6 mg/dL (0.2-1.3); Blood Urea Nitrogen 24 mg/dL (9-20); Calcium 9.1 mg/dL (8.4-10.2); Carbon Dioxide 26 mmol/L (22-30); Chloride 96 mmol/L (98-107); Creatine Kinase 77 U/L (55-170); Estimated CRCL calculation 49 ml/min; Estimated Glomerular Filt Rate 41; Glucose 112 mg/dL (65-110); Lipase 52 U/L (23-300); Magnesium 1.9 mg/dL (1.6-2.3); Potassium 3.7 mmol/L (3.4-5.0); Sodium 132 mmol/L (137-145); Total Protein 8.0 g/dL (6.3-8.2)
[2025-03-15 23:16] LABS: NT Pro B Type Natriuretic Pept 2550 pg/mL (19.9-100); Procalcitonin 1.0 ng/mL; Troponin I 0.062 ng/mL (0.000-0.034)
[2025-03-15 23:23] LABS: CRP 14.6 mg/dL (<1.0)
[2025-03-15 23:27] LABS: Thyroid Stimulating Hormone Reflex 2.450 uIU/mL (0.465-4.68)
[2025-03-16] VITALS (35 sets, daily range): BP systolic 134–179; BP diastolic 75–139; PULSE 67–102; RESP 0–33; TEMP 36.6–37.2; O2SAT 92–100; BMI 30.2
[2025-03-16 00:40] LABS: Add Urine Microscopic? YES; Appearance Urine Clear (Clear); Glucose Urine UA Negative (Negative); Leukocyte Esterase Ur Negative LEU/UL (Negative); Need Manual Microscopic Reviewed; Nitrate Urine Negative (Negative); Specific Grav Ur 1.021 (1.001-1.035)
[2025-03-16 00:53] LABS: Influenza A QL RT-PCR Negative (Negative); Influenza B QL RT-PCR Negative (Negative); RSV RNA, RT-PCR Negative (Negative); SARS-CoV-2 RNA PCR Negative (Negative)
[2025-03-16] MEDS: VANCOMYCIN 1,250 MG/NS 250 ML 1,250 MG/250 ML BAG 166.67 MG IVPB ×2 (01:07→02:47)
[2025-03-16 01:27] LABS: MRSA (PCR) NOT DETECTED (NOT DETECTE)
[2025-03-16] MEDS: SODIUM CHLORIDE 0.9% IV 600 ML 999 ML IV CONT (02:28)
[2025-03-16 02:31] LABS: Troponin I 0.074 ng/mL (0.000-0.034)
--- NOTE | 2025-03-16 02:31 | ECG_ITS ---
Test Date: 2025-03-16 02:41:54 Measurements Intervals [place] Rate: 93 P: 18 VT: 144 QRS: -47 QRSD: 122 T: 66 QT: 376 QTc: 469 Interpretive Statements SINUS RHYTHM LEFT ANTERIOR FASCICULAR BLOCK VOLTAGE CRITERIA FOR LVH CANNOT R/O SEPTAL INFARCT, AGE INDETERMINATE ABNORMAL ECG Compared to ECG 03/15/2025 21:05:12 No significant changes Electronically Signed On 03-16-2025 08:52:41 CDT by Celso Grady D.O.
[2025-03-16] MEDS: ACETAMINOPHEN 500 MG TABLET 1000 MG PO (03:22)
[2025-03-16 03:30] LABS: Alveolar/Arterial O2 Gradient 97.4 mmHg; Fractional Inspired Oxygen 28 %; HCO3 ABG 23.1 mEq/l (22.0-26.0); Oxygen Content ABG 16.7 %vol (16.0-22.0); Oxygen Saturation ABG 94.4 % (95.0-100.0); PCO2 ABG 31.5 mmHg (35.0-45.0); PO2 ABG 65.1 mmHg (80.0-100.0); PO2 FiO2 Ratio Arterial Blood 2.33 %
[2025-03-16 03:31] LABS: Liters per Minute 2.0 LPM; Modified Allen's Test Pass; Site Drawn RIGHT RADIAL
[2025-03-16] MEDS: IPRATROPIUM 0.5 MG/ALBUTEROL SULFATE 2.5 MG (BASE) AMPUL.NEB 3 ML INHALATION (03:41)
[2025-03-16] MEDS: FUROSEMIDE INJ 40 MG/4 ML VIAL IV PUSH (04:47)
[2025-03-16 05:47] LABS: Estimated CRCL calculation 56 ml/min; Estimated Glomerular Filt Rate 49
[2025-03-16 06:04] LABS: Troponin I 0.115 ng/mL (0.000-0.034)
--- NOTE | 2025-03-16 06:48 | ADMGEN ---
This patient, Oleg Tay, was admitted to IMU Room 205-02. Patient/family oriented to hospital policies and general routines including ID bracelet, bed and alarms, visiting hours, pain management, procedures, bathroom and other care routines, personal items, smoking policy, room service/diet, and visiting hours. Information on how to activate the Rapid Response Team has been discussed. Patient/Family are encouraged to report perceived risks to care and to ask questions if they do not understand what they are told or what they should do.
--- NOTE | 2025-03-16 09:41 | PM.IMHP ---
H&P: HPI History of Present Illness Date/Time: 03/16/25 09:41 Chief Complaint: Confusion and fever Narrative: Oleg Tay is a 74 year old male with pmhx of memory impairment, GERD, BPPV, mixed hyperlipidemia who was presented overnight for fever and altered mental status. His daughter called EMS because he had fever and confused. The confusion was for the last 48 hours, and fatigue. He slept all day yesterday. For fever, he took Tylenol which helped but it came back again. He was admitted recently for cholecystitis that requires a cholecystostomy. He underwent cholangiogram that showed no leakage. He was also treated for pneumonia and rhabdomyolysis. Upon my evaluation, patient was alert and oriented x3. He does not recognize the current president and did not know why a he is in the hospital. As otherwise he was able to tell me when he had cholecystostomy and he may not even have a surgery for cholecystectomy. The EKG shows sinus rhythm, left anterior fascicle block, voltage's criteria for LVH. Cbc without leukocytosis. BMP sodium 132. Creatinine slightly elevated. Troponin also elevated. Troponin 0.062, is DO 0.074, 0.115. BNP 2550. Procalcitonin normal. TSH normal. Urinalysis normal. CT chest abdomen and pelvis shows atelectasis bibasilar concerning for pneumonia. CT head no acute intracranial findings. Review of Systems Review of Systems: All systems reviewed & are unremarkable except as noted in HPI and below PMFSH Past Medical History Medical History Perforated gallbladder Hospital discharge follow-up Erectile dysfunction Mixed hyperlipidemia Vitamin D deficiency Positional vertigo Memory impairment Hypersomnolence Trigger finger Bilateral hand numbness Benign essential hypertension Psoriasis Stricture of esophagus Insomnia Kidney stone Hearing loss DJD (degenerative joint disease) GERD (gastroesophageal reflux disease) Pre-diabetes Surgical History Surgical History H/O insertion of cholecystostomy tube 01/25/25 Dr Huang 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 He lives by himself in [place] drives. 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 He is a lifetime nonsmoker. He drinks between 1-4 alcoholic beverages a month. He denies illicit substance use. Code status: Full code (patient would not want long-term ventilatory support) Surrogate decision makers: Shaunna (daughter) and son Smoking status: Never smoker Second hand tobacco smoke exposure: No Alcohol intake: never Drinks per week: 2 Alcohol use details: STATES 2-4 BEERS/WEEK Substance use: never Substance use type: does not use Lack of Transportation: No Lack of Food: Never True Current Housing: I Have Housing Concerned About Future Housing: No Difficulty Paying Gas/Electric Bills: No Difficulty Paying for Meds: No Currently Unemployed: No Education: High School Diploma/GED Difficulty w/ Childcare or Family Care: No Living arrangements: alone Occupation/Education: retired Gender identity (if verbalized by the patient): Male Spiritual care concerns: No Agree to blood products: Yes Meds Home Medications and Allergies Home Medications ?Medication ?Instructions ?Recorded ?Confirmed ?Type Prevagen 10 mg BYMOUTH . daily 03/16/24 03/16/25 History omega-3 fatty acids-fish oil 360 1 cap PO DAILY 03/16/24 03/16/25 History mg-1,200 mg capsule (Fish Oil) pyridoxine (vitamin B6) 100 mg 100 mg PO DAILY 03/16/24 03/16/25 History tablet pravastatin 40 mg tablet See Rx Instructions .Route 07/24/24 03/16/25 Rx .COMPLEX #90 tabs ascorbic acid (vitamin C) 500 mg 500 mg PO DAILY 07/30/24 03/16/25 History capsule thiamine HCl (vitamin B1) 100 mg 100 mg PO DAILY 07/30/24 03/16/25 History capsule fluticasone propionate 50 2 spray intranasal BID #16 mL 11/28/24 03/16/25 Rx mcg/actuation nasal spray,suspension (Flonase Allergy Relief) omeprazole 40 mg capsule,delayed See Rx Instructions .Route 12/13/24 03/16/25 Rx release .COMPLEX #180 caps zolpidem 10 mg tablet 10 mg PO QHS #30 tabs 12/13/24 03/16/25 Rx donepezil 5 mg tablet 5 mg PO QHS #90 tabs 01/14/25 03/16/25 Rx apixaban 5 mg tablet (Eliquis) 5 mg PO Q12HR #60 tabs 02/06/25 03/16/25 Rx metoprolol succinate 25 mg 25 mg PO QAM #30 tabs 02/06/25 03/16/25 Rx tablet,extended release 24 hr (Toprol XL) ondansetron 4 mg disintegrating 4 mg PO Q8H PRN nausea and 03/08/25 03/16/25 Rx tablet vomiting #7 tabs valsartan 320 mg tablet 320 mg PO DAILY 03/16/25 03/16/25 History Allergies Allergy/AdvReac Type Severity Reaction Status Date / Time No Known Allergies Allergy Verified 03/07/25 18:30 Vital Signs Vital Signs - 24 hr 03/15/25 19:30 03/15/25 19:46 03/15/25 20:10 Temperature 37.2 C Pulse Rate 95 96 101 H Respiratory Rate 30 H 32 H 24 H Blood Pressure 156/95 H Pulse Oximetry 91 92 93 Oxygen Delivery Room Air 03/15/25 20:15 03/15/25 20:16 03/15/25 20:30 Temperature Pulse Rate 96 99 Respiratory Rate 13 Blood Pressure 166/99 H Pulse Oximetry 94 94 96 Oxygen Delivery 03/15/25 20:31 03/15/25 20:45 03/15/25 20:46 Temperature Pulse Rate 100 Respiratory Rate 31 H Blood Pressure 180/125 H 153/67 H Pulse Oximetry 95 95 94 Oxygen Delivery 03/15/25 21:01 03/15/25 21:11 03/15/25 21:15 Temperature Pulse Rate 0 L Respiratory Rate 15 Blood Pressure 169/109 H Pulse Oximetry 93 Oxygen Delivery 03/15/25 21:16 03/15/25 21:30 03/15/25 21:31 Temperature Pulse Rate Respiratory Rate Blood Pressure 172/121 H 173/96 H Pulse Oximetry 94 94 94 Oxygen Delivery 03/15/25 21:45 03/15/25 21:46 03/15/25 22:00 Temperature Pulse Rate 86 86 88 Respiratory Rate 24 H 24 H 22 H Blood Pressure 137/72 Pulse Oximetry 97 97 96 Oxygen Delivery 03/15/25 22:01 03/15/25 22:28 03/15/25 22:30 Temperature Pulse Rate 95 91 92 Respiratory Rate 22 H 22 H 20 Blood Pressure 146/76 H Pulse Oximetry 97 Oxygen Delivery 03/15/25 22:37 03/15/25 22:45 03/16/25 00:35 Temperature Pulse Rate 93 95 Respiratory Rate 25 H 27 H 0 L Blood Pressure 162/95 H Pulse Oximetry 95 Oxygen Delivery 03/16/25 00:58 03/16/25 01:00 03/16/25 01:07 Temperature Pulse Rate 98 Respiratory Rate 17 12 31 H Blood Pressure 173/102 H Pulse Oximetry 95 Oxygen Delivery 03/16/25 02:10 03/16/25 02:15 03/16/25 02:16 Temperature Pulse Rate 89 90 94 Respiratory Rate 26 H 25 H 29 H Blood Pressure 179/94 H Pulse Oximetry Oxygen Delivery 03/16/25 02:30 03/16/25 02:31 03/16/25 02:45 Temperature Pulse Rate 98 95 101 H Respiratory Rate 27 H 27 H 25 H Blood Pressure 172/81 H Pulse Oximetry Oxygen Delivery 03/16/25 02:46 03/16/25 03:00 03/16/25 03:01 Temperature Pulse Rate 94 86 86 Respiratory Rate 33 H 30 H 22 H Blood Pressure 160/139 H 152/95 H Pulse Oximetry Oxygen Delivery 03/16/25 03:15 03/16/25 03:16 03/16/25 03:30 Temperature Pulse Rate 83 84 86 Respiratory Rate 23 H 25 H 28 H Blood Pressure 148/81 H 162/97 H Pulse Oximetry Oxygen Delivery 03/16/25 03:31 03/16/25 03:41 03/16/25 04:21 Temperature Pulse Rate 82 87 85 Respiratory Rate 25 H 30 H 23 H Blood Pressure Pulse Oximetry Oxygen Delivery 03/16/25 04:30 03/16/25 04:31 03/16/25 04:41 Temperature Pulse Rate 79 79 81 Respiratory Rate 18 18 19 Blood Pressure 136/75 Pulse Oximetry 97 Oxygen Delivery BiPAP 03/16/25 06:12 03/16/25 06:50 03/16/25 07:51 Temperature 36.6 C 37.2 C Pulse Rate 74 73 67 Respiratory Rate 29 H 21 H 22 H Blood Pressure 134/77 143/80 H Pulse Oximetry 98 100 97 Oxygen Delivery BiPAP 03/16/25 08:48 Temperature Pulse Rate 75 Respiratory Rate 17 Blood Pressure Pulse Oximetry 97 Oxygen Delivery BiPAP Exam Narrative: APPEARANCE: Obese, no acute distress EYES: EOMI HEENT: Normocephalic, atraumatic, OMM RESPIRATORY: No respiratory distress Clear to auscultation bilaterally with no rhonchi wheezing or rales. CARDIOVASCULAR: RRR, S1 and S2 without murmurs rubs or gallops. ABDOMINAL: Soft, nontender, nondistended, no rebound or guarding MSK: Normal range of motion NEURO: Awake and alert. Following commands, speech normal, no focal deficits SKIN:: Warm, dry. No rashes lesions or abrasions PSYCHIATRIC: Normal affect/mood, H&P: Results Labs Labs: Short CBC 03/15/25 Range/Units 22:41 WBC 8.8 (4.5-10.0) K/mm3 Hgb 13.0 L (14.0-18.0) g/dL Hct 38.6 L (42.0-52.0) % Plt Count 145 L (150-375) k/mm3 BMP 03/15/25 03/16/25 22:35 05:31 Sodium 132 L Potassium 3.7 Chloride 96 L Carbon Dioxide 26 BUN 24 H Creatinine 1.63 H 1.40 H Glucose 112 H Calcium 9.1 Cardiac Enzymes 03/15/25 03/16/25 03/16/25 Range/Units 22:35 01:56 05:31 Total Creatine Kinase 77 (55-170) U/L Troponin I 0.062 H* 0.074 H* 0.115 H* D (0.000-0.034) ng/mL Liver Function 03/15/25 Range/Units 22:35 Total Bilirubin 2.6 H (0.2-1.3) mg/dL AST 29 (17-59) U/L ALT 24 (6-50) U/L Alkaline Phosphatase 71 (38-126) U/L Albumin 4.0 (3.5-5.1) g/dL Urine 03/15/25 Range/Units 23:54 Urine Color Yellow (Yellow) Urine Appearance Clear (Clear) Urine pH 5.5 (5.0-9.0) Ur Specific [place] 1.021 (1.001-1.035) Urine Protein 2+ H (Negative) mg/dL Urine Glucose (UA) Negative (Negative) mg/dL Assessment and Plan Assessment and plan (1) Elevated troponin: Code(s): R79.89 - Other specified abnormal findings of blood chemistry Status: Acute (2) Hypoxemia: Code(s): R09.02 - Hypoxemia Status: Acute (3) Altered mental status: Code(s): R41.82 - Altered mental status, unspecified Status: Acute (4) Sepsis: Code(s): A41.9 - Sepsis, unspecified organism Status: Acute (5) History of percutaneous insertion of cholecystostomy tube: Code(s): Z98.890 - Other specified postprocedural states Status: Acute (6) Mild basilar atelectasis of both lungs: Code(s): J98.11 - Atelectasis Status: Acute Assessment and Plan: 1. bibasilar atelectasis concern for pneumonia #Sepsis likely sick secondary to above Status post sepsis blood, blood culture collected, IV antibiotics started CT chest shows bilateral lower lobe atelectasis concerning for pneumonia Continue IV antibiotics Follow blood culture Discontinue IV fluid General diet PT /OT 2. Hyponatremia On admission sodium 132 Follow urine osmolarity, random sodium and serum osmolarity 3. History pericholic abscess s/p cholecystostomy continue to monitor Quality VTE Prophylaxis VTE prophylaxis: mechanical ordered
[2025-03-16] MEDS: CEFEPIME 2 GM in SODIUM CHLORIDE 0.9% IV 50 ML 100 ML IVPB ×2 (09:49→21:22)
[2025-03-16] MEDS: VALSARTAN 160 MG TABLET 320 MG PO (13:37)
[2025-03-16] MEDS: METOPROLOL SUCCINATE EXT REL 25 MG TABCR PO (13:37)
--- NOTE | 2025-03-16 14:14 | PC.NURSE ---
Pt moved to room 342 at 1414. Report given to TOMAS Farr.
--- NOTE | 2025-03-16 14:27 | PC.NURSE ---
This patient, Oleg Tay, was received from on 03/16/25 at 1428. Patient/family oriented to unit policies and routines.
[2025-03-16] MEDS: APIXABAN 5 MG TABLET PO (21:22)
[2025-03-16] MEDS: DONEPEZIL HCL 5 MG TABLET PO (21:22)
[2025-03-17] VITALS (13 sets, daily range): BP systolic 116–145; BP diastolic 62–99; PULSE 67–81; RESP 18–24; TEMP 36.1–36.9; O2SAT 94–95
[2025-03-17] MEDS: VANCOMYCIN 1,500 MG/NS 500 ML 1,500 MG/500 ML BAG 250 MG IVPB (01:48)
[2025-03-17 05:45] LABS: Hematocrit 35.7 % (42.0-52.0); Hemoglobin 11.9 g/dL (14.0-18.0); Immature Granulocyte Percent A 0.5 % (0-0.5); Lymphocytes Absolute Auto 1.35 K/mm3 (0.9-3.2); Mean Corpuscular HGB Conc 33.3 g/dl (32-36); Mean Corpuscular Hemoglobin 31.0 pg (26-34); Mean Corpuscular Volume 93.0 fl (80-100); Nucleated Red Blood Cells Absolute Auto 0.000 K/mm3 (0.0-0.012); Nucleated Red Blood Cells Perc 0.0 % (0.0-0.2); Platelet Count Result 115 k/mm3 (150-375); Red Blood Count 3.84 M/mm3 (4.6-6.20); White Blood Count 6.3 K/mm3 (4.5-10.0)
[2025-03-17 06:01] LABS: Anion Gap 8 mmol/L (4-12); Blood Urea Nitrogen 25 mg/dL (9-20); Calcium 8.0 mg/dL (8.4-10.2); Carbon Dioxide 24 mmol/L (22-30); Chloride 100 mmol/L (98-107); Estimated CRCL calculation 50 ml/min; Estimated Glomerular Filt Rate 49; Glucose 105 mg/dL (65-110); Potassium 3.2 mmol/L (3.4-5.0); Sodium 132 mmol/L (137-145)
[2025-03-17 06:37] LABS: Hypochromasia Occasional; Schistocytes None Seen
[2025-03-17] MEDS: METOPROLOL SUCCINATE EXT REL 25 MG TABCR PO (09:33)
[2025-03-17] MEDS: PHENAZOPYRIDINE HCL 100 MG TABLET PO (09:33)
[2025-03-17] MEDS: ASCORBIC ACID 500 MG TABLET PO (09:33)
[2025-03-17] MEDS: APIXABAN 5 MG TABLET PO ×2 (09:34→22:12)
[2025-03-17] MEDS: VALSARTAN 160 MG TABLET 320 MG PO (09:34)
[2025-03-17] MEDS: THIAMINE HCL 100 MG TABLET PO (09:34)
[2025-03-17] MEDS: FLUTICASONE PROPIONATE 0.05% NA SPR 16 GM BTL (*BKC) 2 SPRAY NASAL (09:34)
[2025-03-17] MEDS: CEFEPIME 2 GM in SODIUM CHLORIDE 0.9% IV 50 ML 100 ML IVPB ×2 (09:36→22:12)
[2025-03-17] MEDS: POTASSIUM CHLORIDE 20 MEQ PACKET (FOR LIQUID) 40 MEQ PO (12:53)
--- NOTE | 2025-03-17 13:44 | P.PNIM_ITS ---
Progress Note: A&P Assessment and Plan (1) Elevated troponin: Code(s): R79.89 - Other specified abnormal findings of blood chemistry Status: Acute Assessment and Plan: Type 2 NSTEMI in the setting of chronic kidney disease. Likely secondary to demand mismatch. Chest pain-free. (2) Hypoxemia: Code(s): R09.02 - Hypoxemia Status: Acute Assessment and Plan: Likely secondary to pneumonia and atelectasis. On supplemental nasal cannula Maintain SpO2 greater than 92%, wean as tolerated. (3) Altered mental status: Code(s): R41.82 - Altered mental status, unspecified Status: Acute Assessment and Plan: Confusion resolved. Likely secondary to the infection (4) Sepsis: Code(s): A41.9 - Sepsis, unspecified organism Status: Acute Assessment and Plan: On antibiotics. Follow blood culture. (5) History of percutaneous insertion of cholecystostomy tube: Code(s): Z98.890 - Other specified postprocedural states Status: Acute (6) Mild basilar atelectasis of both lungs: Code(s): J98.11 - Atelectasis Status: Acute Assessment and Plan: 1. bibasilar atelectasis concern for pneumonia #Sepsis likely sick secondary to above Status post sepsis blood, blood culture collected, IV antibiotics started CT chest shows bilateral lower lobe atelectasis concerning for pneumonia Continue IV antibiotics Follow blood culture Discontinue IV fluid General diet PT /OT 2. Hyponatremia On admission sodium 132 Follow urine osmolarity, random sodium and serum osmolarity 3. History pericholic abscess s/p cholecystostomy continue to monitor Plan After PT and OT evaluation, maybe home today or tomorrow Time Spent With Patient Time: 35 minutes Subjective Date/time seen: 03/17/25 13:44 Interval history: sitting in the chair. ON NC supplemental O2. No fever or chills overnight. Review of Systems Review of Systems: All systems reviewed & are unremarkable except as noted in HPI and below Exam Narrative: APPEARANCE: Obese, no acute distress EYES: EOMI HEENT: Normocephalic, atraumatic, OMM RESPIRATORY: No respiratory distress Clear to auscultation bilaterally with no rhonchi wheezing or rales. CARDIOVASCULAR: RRR, S1 and S2 without murmurs rubs or gallops. ABDOMINAL: Soft, nontender, nondistended, no rebound or guarding MSK: Normal range of motion NEURO: Awake and alert. Following commands, speech normal, no focal deficits SKIN:: Warm, dry. No rashes lesions or abrasions PSYCHIATRIC: bright affect Objective Data Vital Signs Vital Signs: Vital Signs - 24 hr 03/16/25 14:00 03/16/25 16:00 03/16/25 20:00 Temperature Pulse Rate 95 86 85 Respiratory Rate Blood Pressure Pulse Oximetry Oxygen Delivery Oxygen Flow Rate 03/16/25 20:19 03/16/25 21:30 03/16/25 21:30 Temperature 37.1 C Pulse Rate 87 Respiratory Rate 24 H Blood Pressure 140/79 Pulse Oximetry 92 94 94 Oxygen Delivery Nasal Cannula Nasal Cannula Oxygen Flow Rate 2 03/17/25 00:00 03/17/25 04:00 03/17/25 06:00 Temperature 36.1 C L Pulse Rate 81 70 77 Respiratory Rate 24 H Blood Pressure 116/62 Pulse Oximetry 95 Oxygen Delivery Oxygen Flow Rate 03/17/25 09:33 03/17/25 09:43 Temperature Pulse Rate 76 Respiratory Rate Blood Pressure Pulse Oximetry 95 Oxygen Delivery Nasal Cannula Oxygen Flow Rate 2 Intake/Output Intake/Output: Intake & Output 03/14/25 03/15/25 03/16/25 03/17/25 23:59 23:59 23:59 23:59 Intake Total 6070 1030 Output Total 150 Balance 5920 1030 Meds/Results Medications: Active Medications Generic Name Dose Route Start Last Admin Trade Name Freq PRN Reason Stop Dose Admin Apixaban 5 mg 03/16/25 21:00 03/17/25 09:34 Apixaban 5 Mg Tablet PO 5 mg Q12HR DREAD Administration Ascorbic Acid 500 mg 03/17/25 09:00 03/17/25 09:33 Ascorbic Acid 500 Mg Tablet PO 500 mg DAILY DREAD Administration Donepezil HCl 5 mg 03/16/25 21:00 03/16/25 21:22 Donepezil Hcl 5 Mg Tablet PO 5 mg QHS DREAD Administration Fluticasone Propionate 2 spray 03/16/25 17:00 03/17/25 09:34 Fluticasone Propionate 0.05% Na Spr 16 Gm Btl (*Bkc) NASAL 2 spray BID DREAD Administration Cefepime HCl 2 gm/ Sodium 50 mls @ 100 mls/hr 03/16/25 10:00 03/17/25 09:36 Chloride IVPB 100 mls/hr Q12H DREAD Administration Vancomycin HCl 1,500 mg in 500 mls @ 250 mls/hr 03/17/25 01:00 03/17/25 01:48 Vancomycin 1,500 Mg/Ns 500 Ml IVPB 250 mls/hr Q24H DREAD Administration Metoprolol Succinate 25 mg 03/16/25 13:00 03/17/25 09:33 Metoprolol Succinate Ext Rel 25 Mg Tabcr PO 25 mg QAM DREAD Administration Phenazopyridine HCl 100 mg 03/17/25 09:00 03/17/25 09:33 Phenazopyridine Hcl 100 Mg Tablet PO 100 mg DAILY DREAD Administration Thiamine HCl 100 mg 03/17/25 09:00 03/17/25 09:34 Thiamine Hcl 100 Mg Tablet PO 100 mg QAM DREAD Administration Valsartan 320 mg 03/16/25 13:00 03/17/25 09:34 Valsartan 160 Mg Tablet PO 320 mg QAM DREAD Administration Radiology Results: ITS Impressions Head CT 03/16/25 11:55 IMPRESSION: 1. No acute intracranial findings given significant motion artifact. Chest/Abdomen/Pelvis CT 03/16/25 11:56 IMPRESSION: CHEST- 1. No acute findings. ABDOMEN/PELVIS- 1. No acute findings or significant change from prior exam. 2. Mild persisting gastritis. 3. Percutaneous cholecystostomy remains in place. Chest X-Ray 03/16/25 16:36 Impression: CHF. Superimposed probable pneumonia Labs Labs: Laboratory Results - last 24 hr 03/16/25 03/17/25 13:49 05:18 WBC 6.3 RBC 3.84 L Hgb 11.9 L Hct 35.7 L MCV 93.0 MCH 31.0 MCHC 33.3 RDW 14.2 Plt Count 115 L MPV 9.8 Immature Gran % (Auto) 0.5 Neut % (Auto) 57.3 Lymph % (Auto) 21.3 [place] % (Auto) 19.2 H Eos % (Auto) 0.9 Baso % (Auto) 0.8 Lymph # (Auto) 1.35 [place] # (Auto) 1.2 H Eos # (Auto) 0.1 Baso # (Auto) 0.1 Abs Immat Gran (auto) 0.03 Absolute Neuts (auto) 3.6 Absolute Nucleated RBC 0.000 Band Neutrophils % Not Reportable Nucleated RBC % 0.0 Atypical Lymphocytes Present Platelet Estimate Slightly decreased Hypochromasia Occasional Schistocytes None seen Sodium 132 L Potassium 3.2 L Chloride 100 Carbon Dioxide 24 Anion Gap 8 BUN 25 H Creatinine 1.40 H Estim Creat Clear Calc 50 Estimated GFR 49 L Glucose 105 Calcium 8.0 L Ur Random Sodium 135
[2025-03-17] MEDS: DONEPEZIL HCL 5 MG TABLET PO (22:12)
[2025-03-18] VITALS (11 sets, daily range): BP systolic 139–165; BP diastolic 84–89; PULSE 69–84; RESP 18–24; TEMP 36.1–36.8; O2SAT 95–98
[2025-03-18] MEDS: VANCOMYCIN 1,750 MG/NS 500 ML 1,750 MG/500 ML BAG 250 MG IVPB (01:57)
[2025-03-18 06:03] LABS: Hematocrit 35.4 % (42.0-52.0); Hemoglobin 12.0 g/dL (14.0-18.0); Immature Granulocyte Percent A 0.3 % (0-0.5); Lymphocytes Absolute Auto 1.43 K/mm3 (0.9-3.2); Mean Corpuscular HGB Conc 33.9 g/dl (32-36); Mean Corpuscular Hemoglobin 31.4 pg (26-34); Mean Corpuscular Volume 92.7 fl (80-100); Nucleated Red Blood Cells Absolute Auto 0.000 K/mm3 (0.0-0.012); Nucleated Red Blood Cells Perc 0.0 % (0.0-0.2); Platelet Count Result 142 k/mm3 (150-375); Red Blood Count 3.82 M/mm3 (4.6-6.20); White Blood Count 6.6 K/mm3 (4.5-10.0)
[2025-03-18 06:28] LABS: Anion Gap 5 mmol/L (4-12); Blood Urea Nitrogen 25 mg/dL (9-20); Calcium 8.2 mg/dL (8.4-10.2); Carbon Dioxide 24 mmol/L (22-30); Chloride 103 mmol/L (98-107); Estimated CRCL calculation 52 ml/min; Estimated Glomerular Filt Rate 53; Glucose 110 mg/dL (65-110); Potassium 3.1 mmol/L (3.4-5.0); Sodium 132 mmol/L (137-145)
[2025-03-18] MEDS: VALSARTAN 160 MG TABLET 320 MG PO (09:39)
[2025-03-18] MEDS: METOPROLOL SUCCINATE EXT REL 25 MG TABCR PO (09:40)
[2025-03-18] MEDS: PHENAZOPYRIDINE HCL 100 MG TABLET PO (09:40)
[2025-03-18] MEDS: THIAMINE HCL 100 MG TABLET PO (09:40)
[2025-03-18] MEDS: APIXABAN 5 MG TABLET PO ×2 (09:40→20:13)
[2025-03-18] MEDS: ASCORBIC ACID 500 MG TABLET PO (09:40)
[2025-03-18] MEDS: CEFEPIME 2 GM in SODIUM CHLORIDE 0.9% IV 50 ML 100 ML IVPB ×2 (09:41→20:36)
[2025-03-18] MEDS: FLUTICASONE PROPIONATE 0.05% NA SPR 16 GM BTL (*BKC) 2 SPRAY NASAL ×2 (09:41→16:10)
--- NOTE | 2025-03-18 15:21 | P.PNIM_ITS ---
Progress Note: A&P Assessment and Plan (1) Elevated troponin: Code(s): R79.89 - Other specified abnormal findings of blood chemistry Status: Acute Assessment and Plan: Type 2 NSTEMI in the setting of chronic kidney disease. Likely secondary to demand mismatch. Chest pain-free. (2) Hypoxemia: Code(s): R09.02 - Hypoxemia Status: Acute Assessment and Plan: Likely secondary to pneumonia and atelectasis. On supplemental nasal cannula Maintain SpO2 greater than 92%, wean as tolerated. (3) Altered mental status: Code(s): R41.82 - Altered mental status, unspecified Status: Acute Assessment and Plan: Confusion resolved. Likely secondary to the infection (4) Sepsis: Code(s): A41.9 - Sepsis, unspecified organism Status: Acute Assessment and Plan: On antibiotics. Follow blood culture. IV cefepime 2 gm q12h will order blood culture to be repeated (5) History of percutaneous insertion of cholecystostomy tube: Code(s): Z98.890 - Other specified postprocedural states Status: Acute (6) Mild basilar atelectasis of both lungs: Code(s): J98.11 - Atelectasis Status: Acute Assessment and Plan: 1. bibasilar atelectasis concern for pneumonia #Sepsis likely sick secondary to above Status post sepsis blood, blood culture collected, IV antibiotics started CT chest shows bilateral lower lobe atelectasis concerning for pneumonia Continue IV antibiotics Follow blood culture Discontinue IV fluid General diet PT /OT 2. Hyponatremia On admission sodium 132 Follow urine osmolarity, random sodium and serum osmolarity 3. History pericholic abscess s/p cholecystostomy continue to monitor Plan After PT and OT evaluation, maybe home today or tomorrow Time Spent With Patient Time with patient: 25 - 35 minutes Subjective Date/time seen: 03/18/25 15:21 Interval history: Pt is seen and examined. He is very forgetful, does not want to stay here. sitting in the chair. ON NC supplemental O2. No fever or chills overnight. Review of Systems Review of Systems: All systems reviewed & are unremarkable except as noted in HPI and below Exam Narrative: APPEARANCE: Obese, no acute distress EYES: EOMI HEENT: Normocephalic, atraumatic, OMM RESPIRATORY: No respiratory distress Clear to auscultation bilaterally with no rhonchi wheezing or rales. CARDIOVASCULAR: RRR, S1 and S2 without murmurs rubs or gallops. ABDOMINAL: Soft, nontender, nondistended, no rebound or guarding MSK: Normal range of motion NEURO: Awake and alert. Following commands, speech normal, no focal deficits SKIN:: Warm, dry. No rashes lesions or abrasions PSYCHIATRIC: bright affect Const: General: comfortable Objective Data Vital Signs Vital Signs: Vital Signs - 24 hr 03/17/25 16:00 03/17/25 20:00 03/17/25 20:00 Temperature Pulse Rate 81 79 Respiratory Rate Blood Pressure Pulse Oximetry 95 Oxygen Delivery Nasal Cannula Oxygen Flow Rate 2 03/17/25 22:00 03/17/25 23:33 03/17/25 23:34 Temperature 97.9 F Pulse Rate 77 Respiratory Rate 20 Blood Pressure 145/99 H Pulse Oximetry 95 95 Oxygen Delivery Nasal Cannula Nasal Cannula Oxygen Flow Rate 2 03/18/25 00:00 03/18/25 04:00 03/18/25 06:00 Temperature 98.2 F Pulse Rate 84 77 72 Respiratory Rate 24 H Blood Pressure 152/84 H Pulse Oximetry 95 Oxygen Delivery Oxygen Flow Rate 03/18/25 09:40 03/18/25 14:00 Temperature 97.0 F L Pulse Rate 71 75 Respiratory Rate 18 Blood Pressure 139/89 Pulse Oximetry 96 Oxygen Delivery Oxygen Flow Rate Intake/Output Intake/Output: Intake & Output 03/15/25 03/16/25 03/17/25 03/18/25 23:59 23:59 23:59 23:59 Intake Total 6070 4850 980 Output Total 447 842 8425 Balance 5920 4450 -195 Meds/Results Medications: Active Medications Generic Name Dose Route Start Last Admin Trade Name Freq PRN Reason Stop Dose Admin Apixaban 5 mg 03/16/25 21:00 03/18/25 09:40 Apixaban 5 Mg Tablet PO 5 mg Q12HR DREAD Administration Ascorbic Acid 500 mg 03/17/25 09:00 03/18/25 09:40 Ascorbic Acid 500 Mg Tablet PO 500 mg DAILY DREAD Administration Donepezil HCl 5 mg 03/16/25 21:00 03/17/25 22:12 Donepezil Hcl 5 Mg Tablet PO 5 mg QHS DERAD Administration Fluticasone Propionate 2 spray 03/16/25 17:00 03/18/25 09:41 Fluticasone Propionate 0.05% Na Spr 16 Gm Btl (*Bkc) NASAL 2 spray BID DREAD Administration Cefepime HCl 2 gm/ Sodium 50 mls @ 100 mls/hr 03/16/25 10:00 03/18/25 09:41 Chloride IVPB 100 mls/hr Q12H DREAD Administration Metoprolol Succinate 25 mg 03/16/25 13:00 03/18/25 09:40 Metoprolol Succinate Ext Rel 25 Mg Tabcr PO 25 mg QAM DREAD Administration Phenazopyridine HCl 100 mg 03/17/25 09:00 03/18/25 09:40 Phenazopyridine Hcl 100 Mg Tablet PO 100 mg DAILY DREAD Administration Thiamine HCl 100 mg 03/17/25 09:00 03/18/25 09:40 Thiamine Hcl 100 Mg Tablet PO 100 mg QAM DREAD Administration Valsartan 320 mg 03/16/25 13:00 03/18/25 09:39 Valsartan 160 Mg Tablet PO 320 mg QAM DREAD Administration Radiology Results: ITS Impressions Head CT 03/16/25 11:55 IMPRESSION: 1. No acute intracranial findings given significant motion artifact. Chest/Abdomen/Pelvis CT 03/16/25 11:56 IMPRESSION: CHEST- 1. No acute findings. ABDOMEN/PELVIS- 1. No acute findings or significant change from prior exam. 2. Mild persisting gastritis. 3. Percutaneous cholecystostomy remains in place. Chest X-Ray 03/16/25 16:36 Impression: CHF. Superimposed probable pneumonia Labs Labs: Laboratory Results - last 24 hr 03/18/25 03/18/25 00:43 05:54 WBC 6.6 RBC 3.82 L Hgb 12.0 L Hct 35.4 L MCV 92.7 MCH 31.4 MCHC 33.9 RDW 14.1 Plt Count 142 L MPV 9.8 Immature Gran % (Auto) 0.3 Neut % (Auto) 59.1 Lymph % (Auto) 21.7 [place] % (Auto) 16.4 H Eos % (Auto) 1.7 Baso % (Auto) 0.8 Lymph # (Auto) 1.43 [place] # (Auto) 1.1 H Eos # (Auto) 0.1 Baso # (Auto) 0.1 Abs Immat Gran (auto) 0.02 Absolute Neuts (auto) 3.9 Absolute Nucleated RBC 0.000 Nucleated RBC % 0.0 Sodium 132 L Potassium 3.1 L Chloride 103 Carbon Dioxide 24 Anion Gap 5 BUN 25 H Creatinine 1.32 H Estim Creat Clear Calc 52 Estimated GFR 53 L Glucose 110 Calcium 8.2 L Vancomycin Trough 8.9 L Quality VTE Prophylaxis VTE prophylaxis: mechanical ordered
[2025-03-18] MEDS: POTASSIUM CHLORIDE INJ 40 MEQ in SODIUM CHLORIDE 0.9% IV 500 ML 130 MEQ IVPB (16:10)
[2025-03-18] MEDS: DONEPEZIL HCL 5 MG TABLET PO (20:13)
--- NOTE | 2025-03-18 21:32 | PCRCNOTE ---
Window of time for administration has passed. See next scheduled administration.
[2025-03-19] VITALS (13 sets, daily range): BP systolic 138–156; BP diastolic 81–97; PULSE 52–89; RESP 16–18; TEMP 36.1–36.9; O2SAT 93–97
[2025-03-19 05:58] LABS: Hematocrit 37.2 % (42.0-52.0); Hemoglobin 12.5 g/dL (14.0-18.0); Immature Granulocyte Percent A 0.3 % (0-0.5); Lymphocytes Absolute Auto 2.71 K/mm3 (0.9-3.2); Mean Corpuscular HGB Conc 33.6 g/dl (32-36); Mean Corpuscular Hemoglobin 30.9 pg (26-34); Mean Corpuscular Volume 91.9 fl (80-100); Nucleated Red Blood Cells Absolute Auto 0.000 K/mm3 (0.0-0.012); Nucleated Red Blood Cells Perc 0.0 % (0.0-0.2); Platelet Count Result 194 k/mm3 (150-375); Red Blood Count 4.05 M/mm3 (4.6-6.20); White Blood Count 7.8 K/mm3 (4.5-10.0)
[2025-03-19 06:54] LABS: Anion Gap 8 mmol/L (4-12); Blood Urea Nitrogen 22 mg/dL (9-20); Calcium 8.6 mg/dL (8.4-10.2); Carbon Dioxide 27 mmol/L (22-30); Chloride 101 mmol/L (98-107); Estimated CRCL calculation 50 ml/min; Estimated Glomerular Filt Rate 50; Glucose 105 mg/dL (65-110); Potassium 3.3 mmol/L (3.4-5.0); Sodium 136 mmol/L (137-145)
--- NOTE | 2025-03-19 08:52 | PM.IMPN ---
Progress Note: A&P Assessment and Plan (1) Elevated troponin: Code(s): R79.89 - Other specified abnormal findings of blood chemistry Status: Acute Assessment and Plan: Type 2 NSTEMI in the setting of chronic kidney disease. Likely secondary to demand mismatch. Chest pain-free. no chest pain, no sob (2) Hypoxemia: Code(s): R09.02 - Hypoxemia Status: Acute Assessment and Plan: Likely secondary to pneumonia and atelectasis. On supplemental nasal cannula Maintain SpO2 greater than 92%, wean as tolerated. 03/19- down to 1l today, continue to wean as tolerated ON NC supplemental O2- but down to 1l per nc, sats 94- so should be able to wean down and stop oxygen supplementations today. (3) Altered mental status: Code(s): R41.82 - Altered mental status, unspecified Status: Acute Assessment and Plan: Confusion resolved. Likely secondary to the infection -still forgetful but it is his baseline (4) Sepsis: Code(s): A41.9 - Sepsis, unspecified organism Status: Acute Assessment and Plan: On antibiotics. Follow blood culture. IV cefepime 2 gm q12h will order blood culture to be repeated continue cefepime 2 gm downgrade to PO tomorrow (5) History of percutaneous insertion of cholecystostomy tube: Code(s): Z98.890 - Other specified postprocedural states Status: Acute (6) Mild basilar atelectasis of both lungs: Code(s): J98.11 - Atelectasis Status: Acute Assessment and Plan: 1. bibasilar atelectasis concern for pneumonia #Sepsis likely sick secondary to above Status post sepsis blood, blood culture collected, IV antibiotics started CT chest shows bilateral lower lobe atelectasis concerning for pneumonia Continue IV antibiotics Follow blood culture Discontinue IV fluid General diet PT /OT 2. Hyponatremia On admission sodium 132 Follow urine osmolarity, random sodium and serum osmolarity 03/19- 136 today 3. History pericholic abscess s/p cholecystostomy continue to monitor Plan After PT and OT evaluation, maybe home today or tomorrow Time Spent With Patient Time with patient: 25 - 35 minutes Subjective Date/time seen: 03/19/25 08:52 Interval history: Pt is seen and examined. BC still pending. He is very forgetful, sitting in the chair. In good mood this morning. ON NC supplemental O2- but down to 1l per nc, sats 94- so should be able to wean down and stop oxygen supplementations today. No fever or chills overnight. Review of Systems Review of Systems: All systems reviewed & are unremarkable except as noted in HPI and below Exam Narrative: APPEARANCE: Obese, no acute distress EYES: EOMI HEENT: Normocephalic, atraumatic, OMM RESPIRATORY: No respiratory distress Clear to auscultation bilaterally with no rhonchi wheezing or rales. CARDIOVASCULAR: RRR, S1 and S2 without murmurs rubs or gallops. ABDOMINAL: Soft, nontender, nondistended, no rebound or guarding MSK: Normal range of motion NEURO: Awake and alert. Following commands, speech normal, no focal deficits SKIN:: Warm, dry. No rashes lesions or abrasions PSYCHIATRIC: bright affect Const: General: comfortable Objective Data Vital Signs Vital Signs: Vital Signs - 24 hr 03/18/25 09:40 03/18/25 09:40 03/18/25 10:50 Temperature Pulse Rate 71 Respiratory Rate Blood Pressure Pulse Oximetry 96 Pulse Oximetry [With Activity During Therapy Session] 98 Oxygen Delivery Room Air Room Air Oxygen Flow Rate 03/18/25 12:00 03/18/25 14:00 03/18/25 16:00 Temperature 97.0 F L Pulse Rate 72 75 69 Respiratory Rate 18 Blood Pressure 139/89 Pulse Oximetry 96 Pulse Oximetry [With Activity During Therapy Session] Oxygen Delivery Oxygen Flow Rate 03/18/25 20:00 03/18/25 20:00 03/18/25 21:59 Temperature 98.0 F Pulse Rate 75 69 Respiratory Rate 18 Blood Pressure 165/85 H Pulse Oximetry 96 96 Pulse Oximetry [With Activity During Therapy Session] Oxygen Delivery Nasal Cannula Oxygen Flow Rate 2 03/19/25 00:00 03/19/25 04:00 03/19/25 06:00 Temperature 97.0 F L Pulse Rate 52 L 69 75 Respiratory Rate 18 Blood Pressure 151/88 H Pulse Oximetry 97 Pulse Oximetry [With Activity During Therapy Session] Oxygen Delivery Oxygen Flow Rate 03/19/25 08:15 03/19/25 08:15 Temperature Pulse Rate 55 L Respiratory Rate 18 Blood Pressure Pulse Oximetry 94 94 Pulse Oximetry [With Activity During Therapy Session] Oxygen Delivery Nasal Cannula Oxygen Flow Rate 1 Intake/Output Intake/Output: Intake & Output 03/16/25 03/17/25 03/18/25 03/19/25 23:59 23:59 23:59 23:59 Intake Total 6070 4850 1630 400 Output Total 759 476 1340 1450 Balance 5921 1961 -21 -2659 Meds/Results Medications: Active Medications Generic Name Dose Route Start Last Admin Trade Name Freq PRN Reason Stop Dose Admin Apixaban 5 mg 03/16/25 21:00 03/18/25 20:13 Apixaban 5 Mg Tablet PO 5 mg Q12HR DREAD Administration Ascorbic Acid 500 mg 03/17/25 09:00 03/18/25 09:40 Ascorbic Acid 500 Mg Tablet PO 500 mg DAILY DREAD Administration Donepezil HCl 5 mg 03/16/25 21:00 03/18/25 20:13 Donepezil Hcl 5 Mg Tablet PO 5 mg QHS DREAD Administration Fluticasone Propionate 2 spray 03/16/25 17:00 03/18/25 16:10 Fluticasone Propionate 0.05% Na Spr 16 Gm Btl (*Bkc) NASAL 2 spray BID DREAD Administration Cefepime HCl 2 gm/ Sodium 50 mls @ 100 mls/hr 03/16/25 10:00 03/18/25 20:36 Chloride IVPB 100 mls/hr Q12H DREAD Administration Metoprolol Succinate 25 mg 03/16/25 13:00 03/18/25 09:40 Metoprolol Succinate Ext Rel 25 Mg Tabcr PO 25 mg QAM DREAD Administration Phenazopyridine HCl 100 mg 03/17/25 09:00 03/18/25 09:40 Phenazopyridine Hcl 100 Mg Tablet PO 100 mg DAILY DREAD Administration Thiamine HCl 100 mg 03/17/25 09:00 03/18/25 09:40 Thiamine Hcl 100 Mg Tablet PO 100 mg QAM DREAD Administration Valsartan 320 mg 03/16/25 13:00 03/18/25 09:39 Valsartan 160 Mg Tablet PO 320 mg QAM DREAD Administration Radiology Results: ITS Impressions Head CT 03/16/25 11:55 IMPRESSION: 1. No acute intracranial findings given significant motion artifact. Chest/Abdomen/Pelvis CT 03/16/25 11:56 IMPRESSION: CHEST- 1. No acute findings. ABDOMEN/PELVIS- 1. No acute findings or significant change from prior exam. 2. Mild persisting gastritis. 3. Percutaneous cholecystostomy remains in place. Chest X-Ray 03/16/25 16:36 Impression: CHF. Superimposed probable pneumonia Labs Labs: Laboratory Results - last 24 hr 03/19/25 05:44 WBC 7.8 RBC 4.05 L Hgb 12.5 L Hct 37.2 L MCV 91.9 MCH 30.9 MCHC 33.6 RDW 13.8 Plt Count 194 MPV 9.7 Immature Gran % (Auto) 0.3 Neut % (Auto) 49.2 Lymph % (Auto) 34.7 [place] % (Auto) 12.4 H Eos % (Auto) 2.6 Baso % (Auto) 0.8 Lymph # (Auto) 2.71 [place] # (Auto) 1.0 H Eos # (Auto) 0.2 Baso # (Auto) 0.1 Abs Immat Gran (auto) 0.02 Absolute Neuts (auto) 3.9 Absolute Nucleated RBC 0.000 Nucleated RBC % 0.0 Sodium 136 L Potassium 3.3 L Chloride 101 Carbon Dioxide 27 Anion Gap 8 BUN 22 H Creatinine 1.38 H Estim Creat Clear Calc 50 Estimated GFR 50 L Glucose 105 Calcium 8.6 Quality VTE Prophylaxis VTE prophylaxis: mechanical ordered
--- NOTE | 2025-03-19 08:55 | P.CDI_ITS ---
CDI Query Clarification Request 1)Please review the clinical information below and clarify the respiratory niki gnosis the patient is being treated for: * Hypoxia or hypoxemia without respiratory failure * Respiratory distress without respiratory failure * Acute respiratory failure with hypoxia * Acute respiratory failure with hypercapnia * Acute respiratory failure with hypoxia and hypercapnia * Acute on chronic respiratory failure with hypoxia * Acute on chronic respiratory failure with hypercapnia * Acute on chronic respiratory failure with hypoxia and hypercapnia * Acute respiratory distress syndrome (ARDS) * Chronic respiratory failure with hypoxia * Chronic respiratory failure with hypercapnia * Chronic respiratory failure with hypoxia and hypercapnia * Other explanation clinical findings, please specify * Unable to determine 2) Please specify type and acuity of heart failure if known. * Acute * Chronic * Acute on Chronic * Unknown * Systolic * Diastolic * Combined Systolic and Diastolic * Unknown The medical chart reflects the following: ER documented: Discharge Clinical Impression: Sepsis, Dyspnea, Heart failure, Altered mental status, Hypoxemia, Elevated troponin ABG shows a pH of 7.483, pCO2 of 31.5, PaO2 of 65.1. Patient has been order Lasix for diuresis.. Antibiotics have been place. Will start patient on CPAP for tachypnea. I spoke with the hospitalist on-call who has accepted the patient for admission Hospitalist documented: Assessment and Plan (1) Elevated troponin: Code(s): R79.89 - Other specified abnormal findings of blood chemistry Status: Acute Assessment and Plan: Type 2 NSTEMI in the setting of chronic kidney disease. Likely secondary to demand mismatch. Chest pain-free. (2) Hypoxemia: Code(s): R09.02 - Hypoxemia Status: Acute Assessment and Plan: Likely secondary to pneumonia and atelectasis. On supplemental nasal cannula Maintain SpO2 greater than 92%, wean as tolerated. (3) Altered mental status: Code(s): R41.82 - Altered mental status, unspecified Status: Acute Assessment and Plan: Confusion resolved. Likely secondary to the infection (4) Sepsis: Code(s): A41.9 - Sepsis, unspecified organism Status: Acute Assessment and Plan: On antibiotics. Follow blood culture. IV cefepime 2 gm q12h will order blood culture to be repeated (5) History of percutaneous insertion of cholecystostomy tube: Code(s): Z98.890 - Other specified postprocedural states Status: Acute (6) Mild basilar atelectasis of both lungs: Code(s): J98.11 - Atelectasis Status: Acute Assessment and Plan: 1. bibasilar atelectasis concern for pneumonia #Sepsis likely sick secondary to above Status post sepsis blood, blood culture collected, IV antibiotics started CT chest shows bilateral lower lobe atelectasis concerning for pneumonia Continue IV antibiotics Follow blood culture Discontinue IV fluid General diet PT /OT cxray: Impression: CHF. Superimposed probable pneumonia BNP: 2550 IV lasix given <Renee Marquis RN - Last Filed: 03/19/25 09:07> Clarified Diagnosis Clarified Diagnosis: Acute respiratory failure with hypoxia chf unknown <Clair Dejesus APRN - Last Filed: 03/19/25 14:02>
[2025-03-19] MEDS: APIXABAN 5 MG TABLET PO ×2 (09:12→21:03)
[2025-03-19] MEDS: THIAMINE HCL 100 MG TABLET PO (09:12)
[2025-03-19] MEDS: ASCORBIC ACID 500 MG TABLET PO (09:12)
[2025-03-19] MEDS: VALSARTAN 160 MG TABLET 320 MG PO (09:12)
[2025-03-19] MEDS: PHENAZOPYRIDINE HCL 100 MG TABLET PO (09:12)
[2025-03-19] MEDS: METOPROLOL SUCCINATE EXT REL 25 MG TABCR PO (09:12)
[2025-03-19] MEDS: POTASSIUM CHLORIDE 20 MEQ PACKET (FOR LIQUID) 40 MEQ PO (09:13)
[2025-03-19] MEDS: FLUTICASONE PROPIONATE 0.05% NA SPR 16 GM BTL (*BKC) 2 SPRAY NASAL ×2 (09:14→18:17)
[2025-03-19] MEDS: CEFEPIME 2 GM in SODIUM CHLORIDE 0.9% IV 50 ML 100 ML IVPB (09:15)
[2025-03-19] MEDS: DONEPEZIL HCL 5 MG TABLET PO (21:03)
[2025-03-20] VITALS (12 sets, daily range): BP systolic 148–156; BP diastolic 84–96; PULSE 73–91; RESP 16; TEMP 36.4–37.2; O2SAT 90–95
[2025-03-20 05:38] LABS: Hematocrit 35.5 % (42.0-52.0); Hemoglobin 11.9 g/dL (14.0-18.0); Immature Granulocyte Percent A 0.5 % (0-0.5); Lymphocytes Absolute Auto 2.06 K/mm3 (0.9-3.2); Mean Corpuscular HGB Conc 33.5 g/dl (32-36); Mean Corpuscular Hemoglobin 31.2 pg (26-34); Mean Corpuscular Volume 92.9 fl (80-100); Nucleated Red Blood Cells Absolute Auto 0.000 K/mm3 (0.0-0.012); Nucleated Red Blood Cells Perc 0.0 % (0.0-0.2); Platelet Count Result 169 k/mm3 (150-375); Red Blood Count 3.82 M/mm3 (4.6-6.20); White Blood Count 7.6 K/mm3 (4.5-10.0)
[2025-03-20 05:59] LABS: Anion Gap 9 mmol/L (4-12); Blood Urea Nitrogen 20 mg/dL (9-20); Calcium 8.4 mg/dL (8.4-10.2); Carbon Dioxide 25 mmol/L (22-30); Chloride 102 mmol/L (98-107); Estimated CRCL calculation 56 ml/min; Estimated Glomerular Filt Rate 50; Glucose 109 mg/dL (65-110); Potassium 3.4 mmol/L (3.4-5.0); Sodium 136 mmol/L (137-145)
[2025-03-20 06:08] LABS: Osmolality, Urine 497 mOsmol/kg (.)
[2025-03-20] MEDS: METOPROLOL SUCCINATE EXT REL 25 MG TABCR PO (08:29)
[2025-03-20] MEDS: ASCORBIC ACID 500 MG TABLET PO (08:30)
[2025-03-20] MEDS: VALSARTAN 160 MG TABLET 320 MG PO (08:30)
[2025-03-20] MEDS: POTASSIUM CHLORIDE 20 MEQ PACKET (FOR LIQUID) 40 MEQ PO (08:31)
[2025-03-20] MEDS: PHENAZOPYRIDINE HCL 100 MG TABLET PO (08:31)
[2025-03-20] MEDS: APIXABAN 5 MG TABLET PO ×2 (08:31→20:47)
[2025-03-20] MEDS: THIAMINE HCL 100 MG TABLET PO (08:31)
[2025-03-20] MEDS: FLUTICASONE PROPIONATE 0.05% NA SPR 16 GM BTL (*BKC) 2 SPRAY NASAL ×2 (08:31→17:38)
--- NOTE | 2025-03-20 09:20 | P.PNIM_ITS ---
Progress Note: A&P Assessment and Plan (1) Altered mental status: Code(s): R41.82 - Altered mental status, unspecified Status: Acute Assessment and Plan: CT head unremarkable Possibly secondary to acute infection Currently AOx4 on assessment See plan below (2) Acute respiratory failure with hypoxia: Code(s): J96.01 - Acute respiratory failure with hypoxia Status: Acute Assessment and Plan: No noted hypoxia on chart review, however patient was on oxygen supplementation - Oxygen supplementation: weaned back to room air - Suspected cause: pneumonia and atelectasis - See plan below Resolved. Saturations remain stable on room air. (3) Pneumonia: Code(s): J18.9 - Pneumonia, unspecified organism Status: Acute Assessment and Plan: CXR on admission: Mild interstitial pulmonary edema Chest/abdomen/pelvis CT: no acute findings Chest XR repeat 03/16: CHF with superimposed pneumonia - started on CAP tx: IV antibiotics started on 03/15, transitioned to oral Levaquin on 03/19 - Viral PCR: negative for Flu/COVID/RSV - Consider ordering legionella, mycoplasma and pneumococcal - Monitor vital signs, I&Os, neuro status and patient is a fall risk - Follow WBC, serum electrolytes, temperature curves and cultures (4) Elevated troponin: Code(s): R79.89 - Other specified abnormal findings of blood chemistry Status: Acute Assessment and Plan: Type 2 NSTEMI in the setting of chronic kidney disease. Likely secondary to demand mismatch. Chest pain-free. Troponin elevated x3 Repeat troponin to ensure downtrending (5) History of percutaneous insertion of cholecystostomy tube: Code(s): Z98.890 - Other specified postprocedural states Status: Acute Time Spent With Patient Time with patient: 25 - 35 minutes Subjective Date/time seen: 03/20/25 09:20 Interval history: Oleg Tay is a 74 year old male with pmhx of memory impairment, GERD, BPPV, mixed hyperlipidemia who was presented overnight for fever and altered mental status. Patient is pleasant sitting up comfortably in bed. States that he is feeling much better today and has no complaints. Denies any chest pain, shortness a breath, palpitations, nausea/vomiting, abdominal pain. Review of Systems Review of Systems: All systems reviewed & are unremarkable except as noted in HPI and below Exam Narrative: AF HR 90 RR 16 SpO2 94 BP 148/84 General: male in no acute respiratory distress who is nontoxic appearing, sitting up in bed HEENT: Normocephalic. Atraumatic. Extraocular movement intact. Sclera clear and anicteric.No facial asymmetry. Chest: Lungs are clear to auscultation bilaterally. No wheezes or crackles. Speaking full sentences. CV: Heart was regular rate and rhythm. S1/S2. No murmurs, gallops, or rubs. Abd: Abdomen was soft. Nontender. Nondistended. Positive bowel sounds. Ext: No clubbing, cyanosis. Trivial bilateral lower extremity edema. DP pulses bilaterally. Neuro: Patient is alert and oriented x4. Speech is clear. Objective Data Vital Signs Vital Signs: Vital Signs - 24 hr 03/19/25 12:00 03/19/25 14:00 03/19/25 16:00 Temperature 98.1 F Pulse Rate 80 79 80 Respiratory Rate 18 Blood Pressure 156/97 H Pulse Oximetry 95 Oxygen Delivery Oxygen Flow Rate 03/19/25 20:00 03/19/25 20:00 03/19/25 22:00 Temperature 98.4 F Pulse Rate 79 74 Respiratory Rate 16 Blood Pressure 138/81 Pulse Oximetry 97 93 Oxygen Delivery Nasal Cannula Oxygen Flow Rate 2 03/19/25 22:10 03/20/25 00:00 03/20/25 04:00 Temperature Pulse Rate 73 80 73 Respiratory Rate 18 Blood Pressure Pulse Oximetry 94 Oxygen Delivery Nasal Cannula Oxygen Flow Rate 1 03/20/25 06:00 03/20/25 07:48 03/20/25 08:29 Temperature 97.9 F Pulse Rate 76 84 Respiratory Rate 16 Blood Pressure 155/86 H Pulse Oximetry 95 93 Oxygen Delivery Room Air Oxygen Flow Rate Intake/Output Intake/Output: Intake & Output 03/17/25 03/18/25 03/19/25 03/20/25 23:59 23:59 23:59 23:59 Intake Total 4850 1680 1730 980 Output Total 400 1645 2620 600 Balance 4450 35 -890 380 Meds/Results Medications: Active Medications Generic Name Dose Route Start Last Admin Trade Name Freq PRN Reason Stop Dose Admin Apixaban 5 mg 03/16/25 21:00 03/20/25 08:31 Apixaban 5 Mg Tablet PO 5 mg Q12HR DREAD Administration Ascorbic Acid 500 mg 03/17/25 09:00 03/20/25 08:30 Ascorbic Acid 500 Mg Tablet PO 500 mg DAILY DREAD Administration Donepezil HCl 5 mg 03/16/25 21:00 03/19/25 21:03 Donepezil Hcl 5 Mg Tablet PO 5 mg QHS DREAD Administration Fluticasone Propionate 2 spray 03/16/25 17:00 03/20/25 08:31 Fluticasone Propionate 0.05% Na Spr 16 Gm Btl (*Bkc) NASAL 2 spray BID DREAD Administration Levofloxacin 750 mg 03/19/25 21:00 03/19/25 21:03 Levofloxacin 750 Mg Tablet PO 03/22/25 21:01 750 mg QHS DREAD Administration Metoprolol Succinate 25 mg 03/16/25 13:00 03/20/25 08:29 Metoprolol Succinate Ext Rel 25 Mg Tabcr PO 25 mg QAM DREAD Administration Phenazopyridine HCl 100 mg 03/17/25 09:00 03/20/25 08:31 Phenazopyridine Hcl 100 Mg Tablet PO 100 mg DAILY DREAD Administration Potassium Chloride 40 meq 03/19/25 09:00 03/20/25 08:31 Potassium Chloride 20 Meq Packet (For Liquid) PO 40 meq DAILY DREAD Administration Thiamine HCl 100 mg 03/17/25 09:00 03/20/25 08:31 Thiamine Hcl 100 Mg Tablet PO 100 mg QAM DREAD Administration Valsartan 320 mg 03/16/25 13:00 03/20/25 08:30 Valsartan 160 Mg Tablet PO 320 mg QAM DREAD Administration Radiology Results: ITS Impressions Head CT 03/16/25 11:55 IMPRESSION: 1. No acute intracranial findings given significant motion artifact. Chest/Abdomen/Pelvis CT 03/16/25 11:56 IMPRESSION: CHEST- 1. No acute findings. ABDOMEN/PELVIS- 1. No acute findings or significant change from prior exam. 2. Mild persisting gastritis. 3. Percutaneous cholecystostomy remains in place. Chest X-Ray 03/16/25 16:36 Impression: CHF. Superimposed probable pneumonia Labs Labs: Laboratory Results - last 24 hr 03/16/25 03/20/25 13:49 05:15 WBC 7.6 RBC 3.82 L Hgb 11.9 L Hct 35.5 L MCV 92.9 MCH 31.2 MCHC 33.5 RDW 13.8 Plt Count 169 MPV 9.4 Immature Gran % (Auto) 0.5 Neut % (Auto) 60.0 Lymph % (Auto) 27.1 [place] % (Auto) 9.9 H Eos % (Auto) 2.0 Baso % (Auto) 0.5 Lymph # (Auto) 2.06 [place] # (Auto) 0.8 H Eos # (Auto) 0.2 Baso # (Auto) 0.0 Abs Immat Gran (auto) 0.04 H Absolute Neuts (auto) 4.6 Absolute Nucleated RBC 0.000 Nucleated RBC % 0.0 Sodium 136 L Potassium 3.4 Chloride 102 Carbon Dioxide 25 Anion Gap 9 BUN 20 Creatinine 1.39 H Estim Creat Clear Calc 56 Estimated GFR 50 L Glucose 109 Calcium 8.4 Urine Osmolality 497 Quality VTE Prophylaxis VTE prophylaxis: mechanical ordered
[2025-03-20 13:09] LABS: Osmolality, Serum 281 mOsmol/kg (280-301)
[2025-03-20 16:46] LABS: Troponin I < 0.012 ng/mL (0.000-0.034)
[2025-03-20] MEDS: DONEPEZIL HCL 5 MG TABLET PO (20:47)
[2025-03-21] VITALS (7 sets, daily range): BP systolic 139–170; BP diastolic 93–97; PULSE 74–85; RESP 16–18; TEMP 36.6–36.9; O2SAT 93–94
[2025-03-21 04:51] LABS: Hematocrit 36.1 % (42.0-52.0); Hemoglobin 12.2 g/dL (14.0-18.0); Immature Granulocyte Percent A 0.6 % (0-0.5); Lymphocytes Absolute Auto 2.46 K/mm3 (0.9-3.2); Mean Corpuscular HGB Conc 33.8 g/dl (32-36); Mean Corpuscular Hemoglobin 30.9 pg (26-34); Mean Corpuscular Volume 91.4 fl (80-100); Nucleated Red Blood Cells Absolute Auto 0.000 K/mm3 (0.0-0.012); Nucleated Red Blood Cells Perc 0.0 % (0.0-0.2); Platelet Count Result 196 k/mm3 (150-375); Red Blood Count 3.95 M/mm3 (4.6-6.20); White Blood Count 9.6 K/mm3 (4.5-10.0)
[2025-03-21 05:12] LABS: Anion Gap 9 mmol/L (4-12); Blood Urea Nitrogen 20 mg/dL (9-20); Calcium 8.7 mg/dL (8.4-10.2); Carbon Dioxide 23 mmol/L (22-30); Chloride 103 mmol/L (98-107); Estimated CRCL calculation 51 ml/min; Estimated Glomerular Filt Rate 51; Glucose 112 mg/dL (65-110); Potassium 3.5 mmol/L (3.4-5.0); Sodium 135 mmol/L (137-145)
--- NOTE | 2025-03-21 08:24 | ECG_ITS ---
Test Date: 2025-03-21 11:15:16 Measurements Intervals Peculiar Rate: 90 P: 1 AR: 148 QRS: -49 QRSD: 118 T: 5 QT: 378 QTc: 463 Interpretive Statements SINUS RHYTHM LEFT ANTERIOR FASCICULAR BLOCK VOLTAGE CRITERIA FOR LVH CANNOT R/O SEPTAL INFARCT, AGE INDETERMINATE BORDERLINE T WAVE ABNORMALITY- INFERIOR LEADS ABNORMAL ECG Compared to ECG 03/16/2025 02:41:54 No significant changes Electronically Signed On 03-21-2025 12:10:40 CDT by Celso Grady D.O.
[2025-03-21] MEDS: ASCORBIC ACID 500 MG TABLET PO (08:41)
[2025-03-21] MEDS: PHENAZOPYRIDINE HCL 100 MG TABLET PO (08:41)
[2025-03-21] MEDS: VALSARTAN 160 MG TABLET 320 MG PO (08:41)
[2025-03-21] MEDS: THIAMINE HCL 100 MG TABLET PO (08:41)
[2025-03-21] MEDS: METOPROLOL SUCCINATE EXT REL 25 MG TABCR PO (08:41)
[2025-03-21] MEDS: POTASSIUM CHLORIDE 20 MEQ PACKET (FOR LIQUID) 40 MEQ PO (08:41)
[2025-03-21] MEDS: APIXABAN 5 MG TABLET PO (08:41)
[2025-03-21] MEDS: FLUTICASONE PROPIONATE 0.05% NA SPR 16 GM BTL (*BKC) 2 SPRAY NASAL (08:42)
--- NOTE | 2025-03-21 13:16 | P.DS_ITS ---
DS: Admitting Diagnosis Discharge Date 03/21/2025 Admitting Diagnosis AMS Acute respiratory failure with hypoxia Pneumonia Elevated troponin Hx of percutaneous insertion of cholecystostomy tube DS: Discharge Diagnosis Discharge Diagnosis (1) Altered mental status: Code(s): R41.82 - Altered mental status, unspecified Status: Acute (2) Acute respiratory failure with hypoxia: Code(s): J96.01 - Acute respiratory failure with hypoxia Status: Acute (3) Pneumonia: Code(s): J18.9 - Pneumonia, unspecified organism Status: Acute (4) Elevated troponin: Code(s): R79.89 - Other specified abnormal findings of blood chemistry Status: Acute (5) History of percutaneous insertion of cholecystostomy tube: Code(s): Z98.890 - Other specified postprocedural states Status: Acute DS: Summary Hospital Course Reason for hospitalization: AMS Acute respiratory failure with hypoxia Pneumonia Elevated troponin Hx of percutaneous insertion of cholecystostomy tube Hospital Course: Oleg Tay is a 74 year old male with pmhx of memory impairment, GERD, BPPV, mixed hyperlipidemia who was presented overnight for fever and altered mental status. CT head was unremarkable. AMS likely related to acute infection as patient remained aox4 throughout admission. Though there is no noted hypoxia on chart review, however patient was on oxygen supplementation. He was able to be weaned back to room air during admission with stable saturations. CXR on admission showed mild interstitial pulmonary edema. The Chest/abdomen/pelvis CT showed no acute findings. Chest XR repeat 03/16 showed CHF with superimposed pneumonia. Patient was started on IV antibiotics at that time. He was then transitioned to orals to complete the course at time of discharge. On admission patient was noted to have elevated troponin. Denied any chest pain and palpitations. EKG sinus rhythm without ST changes. Likely related to demand mismatch secondary to acute respiratory failure with hypoxia from pneumonia. Repeat troponin downtrended. Repeat EKG was unchanged. Patient has no complaints at time of discharge denying chest pain, shortness a breath, palpitations, nausea/vomiting, and abdominal pain. He states he feels back to his baseline and is ready to discharge. Patient discharged home with home health in a stable condition. He is to follow-up with his primary care provider in 1 week. Status at Discharge Functional status at discharge: uses cane/walker Time Spent with Patient Time attestation: Total time spent providing and/or coordinating discharge services: Time spent: Greater than 30 minutes Exam Narrative: AF HR 85 RR 18 Spo2 93 BP 139/93 General: male in no acute respiratory distress who is nontoxic appearing, sitting up in bed HEENT: Normocephalic. Atraumatic. Extraocular movement intact. Sclera clear and anicteric.No facial asymmetry. Chest: Lungs are clear to auscultation bilaterally. No wheezes or crackles. Speaking full sentences. CV: Heart was regular rate and rhythm. S1/S2. No murmurs, gallops, or rubs. Abd: Abdomen was soft. Nontender. Nondistended. Positive bowel sounds. Ext: No clubbing, cyanosis, edema. DP pulses bilaterally. Neuro: Patient is alert and oriented x4. Speech is clear. DS: Data Data Completed and Pending Completed studies during hospitalization: chest xr chest/abdomen/pelvis ct head ct chest xr Labs on day of discharge: Labs from last 24 hours 03/21/25 03/20/25 04:33 16:18 WBC 9.6 RBC 3.95 L Hgb 12.2 L Hct 36.1 L MCV 91.4 MCH 30.9 MCHC 33.8 RDW 13.9 Plt Count 196 MPV 9.4 Immature Gran % (Auto) 0.6 H Neut % (Auto) 62.7 Lymph % (Auto) 25.7 [place] % (Auto) 8.7 H Eos % (Auto) 1.8 Baso % (Auto) 0.5 Lymph # (Auto) 2.46 [place] # (Auto) 0.8 H Eos # (Auto) 0.2 Baso # (Auto) 0.1 Abs Immat Gran (auto) 0.06 H Absolute Neuts (auto) 6.0 Absolute Nucleated RBC 0.000 Nucleated RBC % 0.0 Sodium 135 L Potassium 3.5 Chloride 103 Carbon Dioxide 23 Anion Gap 9 BUN 20 Creatinine 1.36 H Estim Creat Clear Calc 51 Estimated GFR 51 L Glucose 112 H Calcium 8.7 Troponin I < 0.012 Preliminary micro results at discharge 03/18/25 16:17 Blood Culture - Preliminary Blood 03/18/25 16:17 Blood Culture - Preliminary Blood Discharge Plan Discharge Attending physician on discharge: Matthieu Oleary Consulting providers: Sierra Rose Discharging Clinician: Sierra Rose Anticipated Discharge Date/Time: 03/21/25 13:06 Patient Disposition: Home with Home Health Service Activity: as tolerated Diet: as tolerated and heart healthy Discharge Instructions: Discharge disposition: Patient admitted to the hospital for pneumonia Take medications as prescribed Levaquin daily, course to be completed on 03/22 Attached is information on this medication Strict bleeding precautions since you are on eliquis including shaving with an electric razor, holding pressure for greater than 20 minutes for injury, protection of had with any falls, etc. Started on potassium supplementation on admission Obtain a repeat blood draw to assess potassium level in 5 days Attached is information on this medication Monitor blood pressures Take caution while standing, rising, or moving Change positions slowly taking a break between each position change If you standing feel dizzy sit back down and take a break Encouraged to continue with yearly vaccinations Return to the emergency department if he developed sudden shortness of breath, chest pain, nausea, vomiting, upset stomach or intractable diarrhea Return to the emergency department if you develop fever greater than 100.5 Follow-up with the primary care physician within 1-2 weeks Thank you for [facility] for your healthcare needs Per Care Coordination: [facility] has been arranged to follow at discharge. [facility] will follow for RN and PT/OT eval and treat. [facility] can be contacted at [phone]. Nursing please fax discharge paperwork to Patient Instructions: Antibiotic Form, Potassium Chloride (By mouth), Levofloxacin (By mouth), Apixaban (By mouth), Pneumonia (DC), Safe Use of Anticoagulants (ED) Patient Language: Gambian Stand Alone Forms: General Discharge Information Follow-up/Referrals: Anshul Mason MD [Primary Care Provider, Internal Medicine] - 1 Week Discharge Medications: New potassium chloride 20 mEq Packet 40 meq PO DAILY Qty: 15 0RF levofloxacin 750 mg tablet 750 mg PO DAILY Qty: 2 0RF Continued pyridoxine (vitamin B6) 100 mg tablet 100 mg PO DAILY Prevagen 10 mg BYMOUTH . daily omega-3 fatty acids-fish oil [Fish Oil] 360-1,200 mg capsule 1 cap PO DAILY pravastatin 40 mg tablet See Rx Instructions .ROUTE .COMPLEX Qty: 90 1RF Dose Instruction: TAKE 1 TABLET BY MOUTH DAILY Rx Instructions: TAKE 1 TABLET BY MOUTH DAILY fluticasone propionate [Flonase Allergy Relief] 50 mcg/actuation spray,suspension 2 spray intranasal BID Qty: 16 12RF Rx Instructions: administer into each nostril. Aim back/up/out metoprolol succinate [Toprol XL] 25 mg Tablet Extended Release 24 Hr 25 mg PO QAM Qty: 30 1RF Eliquis 5 mg Tablet 5 mg PO Q12HR Qty: 60 1RF ondansetron 4 mg tablet,disintegrating 4 mg PO Q8H PRN (Reason: nausea and vomiting) Qty: 7 0RF valsartan 320 mg tablet 320 mg PO DAILY thiamine HCl (vitamin B1) 100 mg capsule 100 mg PO DAILY ascorbic acid (vitamin C) 500 mg capsule 500 mg PO DAILY zolpidem 10 mg tablet 10 mg PO QHS Qty: 30 0RF omeprazole 40 mg capsule,delayed release(DR/EC) See Rx Instructions .ROUTE .COMPLEX Qty: 180 1RF Dose Instruction: TAKE 1 CAPSULE BY MOUTH TWICE DAILY Rx Instructions: TAKE 1 CAPSULE BY MOUTH TWICE DAILY donepezil 5 mg tablet 5 mg PO QHS Qty: 90 1RF Other Ambulatory Orders: Basic Metabolic Panel (Routine) Timeframe: 5 Days Location: Determined by Patient Ordered By: Sierra Rose Potassium (Routine) Timeframe: 5 Days Location: Determined by Patient Ordered By: Sierra Rose Date of admission: 03/18/25 10:22 Primary Care Provider: Anshul Mason Admitting Provider: Madai Carrero Attending physician on admission: Madai Carrero Condition: Stable Hospitalist MIPS Heart Failure (Exclusion) Patient has history of Heart Transplant or Left Ventricular Assistive Device?: No IF YES, STOP HERE Heart Failure (Qualifier) Patient has current or prior documentation of LVEF less than or equal to 40%, or mod/servere depressed LVSF?: No IF NO, STOP HERE
== END 2025-03-21 16:32 | disposition home health service (06) | DRG 871 ==
LOC: ANHED 03-16 04:19 → ANHIMU 03-16 05:20 → ANH3MED 03-16 13:37
PROVIDERS: Student in an Organized Health Care Education/Training Program; Admitting Provider Internal Medicine; Emergency Provider Student in an Organized Health Care Education/Training Program; PCP Internal Medicine; Visit Provider Student in an Organized Health Care Education/Training Program
DX: A41.9 Sepsis, unspecified organism (principal); I21.A1 Myocardial infarction type 2; J18.9 Pneumonia, unspecified organism; J96.01 Acute respiratory failure with hypoxia; E87.1 Hypo-osmolality and hyponatremia; I13.0 Hypertensive heart and chronic kidney disease with heart failure and stage 1 through stage 4 chronic kidney disease, or unspecified chronic kidney disease; E78.2 Mixed hyperlipidemia; E55.9 Vitamin D deficiency, unspecified; H91.90 Unspecified hearing loss, unspecified ear; H81.10 Benign paroxysmal vertigo, unspecified ear; I50.9 Heart failure, unspecified; K21.9 Gastro-esophageal reflux disease without esophagitis; N18.9 Chronic kidney disease, unspecified; Z96.652 Presence of left artificial knee joint; Z98.890 Other specified postprocedural states; Z20.822 Contact with and (suspected) exposure to COVID-19; Z79.01 Long term (current) use of anticoagulants
CPT/HCPCS: 36415; 36600; 70450; 71045; 71260; 74177; 80048; 80053; 80202; 81001; 82077; 82550; 82565; 82805; 82948; 83605; 83690; 83735; 83880; 83930; 83935; 84100; 84145; 84300; 84443; 84484; 85018; 85025; 85055; 85610; 85730; 86140; 87040; 87186; 87637; 87641; 93005; 94640; 96361; 96365; 96366; 96367; 96375; 96376; 97110; 97116; 97162; 97530; 99285; A9270; G0378; J0692; J1938; J2270; J3373; J3480; J7030; J7040; Q9967

== ENCOUNTER 2025-04-21 17:20 | Inpatient (IN) | payer MEDICARE, SELFPAY ==
--- NOTE | ~2025-04-21 | XR_ITS ---
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 Technique: Single view. Findings: Small basilar infiltrates. No pneumothorax. Heart is normal size. Mediastinal and hilar contours are within normal limits. Bony thorax no acute abnormality. Impression: Early bilateral pneumonia Reviewed, dictated and finalized at location P. MOTIVE SOFTWARE ENGINEER Impression: Early bilateral pneumonia
--- NOTE | ~2025-04-21 | CT_ITS ---
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 Technique: Axial images obtained of the brain without contrast. One or more of the following dose reduction techniques were used: automated exposure control, adjustment of the mA and/or kV according to patient size, use of iterative reconstruction technique. Findings: No acute infarct or parenchymal hemorrhage. No abnormal mass or mass effect. No midline shift. No extra-axial fluid collections. No hydrocephalus. Mastoid air cells unremarkable. Sinuses and orbits unremarkable. No acute fracture. No significant facial or scalp soft tissue swelling evident. No radiopaque foreign body is seen. Impression: 1.No acute intracranial abnormality. Reviewed, dictated and finalized at location P. OPERATIONS SUPERVISOR Impression: 1.No acute intracranial abnormality.
[2025-04-21 17:09] VITALS: BP 151/113; PULSE 90; RESP 17; TEMP 36.6; O2SAT 95
--- NOTE | 2025-04-21 17:36 | ECG_ITS ---
Test Date: 2025-04-21 18:03:17 Measurements Intervals [place] Rate: 87 P: 1 NV: 139 QRS: -49 QRSD: 105 T: 55 QT: 379 QTc: 458 Interpretive Statements SINUS RHYTHM LEFT ANTERIOR FASCICULAR BLOCK VOLTAGE CRITERIA FOR LVH Electronically Signed On 04-22-2025 00:12:14 DATA BASE DESIGN ANALYST by Sammy Dickinson D.O
--- NOTE | 2025-04-21 17:48 | ED.AMS ---
HPI - Altered Mental Status General Chief Complaint: Altered Mental Status Stated Complaint: confused Time Seen by Provider: 04/21/25 17:24 Source: patient and EMS Mode of arrival: EMS Limitations: no limitations and altered mental status History of Present Illness HPI narrative: This is a 74-year-old male who with history of GERD, AFib, hyperlipidemia, dementia who presents to the ED for altered mental status. Per EMS, they were called by the patient's daughter for the patient acting confused. Patient is unsure what happened. He has only a x2 at this point. He reports some intermittent abdominal pain today. Has no abdominal pain at this time. Denies nausea, vomiting. Related Data Home Medications ?Medication ?Instructions ?Recorded ?Confirmed ?Last Taken ?Type Prevagen 10 mg BYMOUTH . daily 03/16/24 04/17/25 03/15/25 History omega-3 fatty acids-fish oil 360 1 cap PO DAILY 03/16/24 04/17/25 03/15/25 History mg-1,200 mg capsule (Fish Oil) pyridoxine (vitamin B6) 100 mg 100 mg PO DAILY 03/16/24 04/17/25 03/15/25 History tablet ascorbic acid (vitamin C) 500 mg 500 mg PO DAILY 07/30/24 04/17/25 03/15/25 History capsule thiamine HCl (vitamin B1) 100 mg 100 mg PO DAILY 07/30/24 04/17/25 03/15/25 History capsule valsartan 320 mg tablet 320 mg PO DAILY 03/16/25 04/17/25 03/15/25 History Allergies Allergy/AdvReac Type Severity Reaction Status Date / Time No Known Allergies Allergy Verified 04/17/25 11:35 Review of Systems Review of Systems: ROS unobtainable: Yes unobtainable due to mental status PMFSH Past Medical History Medical History BMI 30.0-30.9,adult Perforated gallbladder Hospital discharge follow-up Erectile dysfunction Mixed hyperlipidemia Vitamin D deficiency Positional vertigo Memory impairment Hypersomnolence Trigger finger Bilateral hand numbness Benign essential hypertension Psoriasis Stricture of esophagus Insomnia Kidney stone Hearing loss DJD (degenerative joint disease) GERD (gastroesophageal reflux disease) Pre-diabetes Surgical History Surgical History H/O insertion of cholecystostomy tube 01/25/25 Dr Huang 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 He lives by himself in [place] drives. 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 He is a lifetime nonsmoker. He drinks between 1-4 alcoholic beverages a month. He denies illicit substance use. Code status: Full code (patient would not want long-term ventilatory support) Surrogate decision makers: Shaunna (daughter) and son Smoking status: Never smoker Second hand tobacco smoke exposure: No Alcohol intake: never Drinks per week: 2 Alcohol use details: STATES 2-4 BEERS/WEEK Substance use: never Substance use type: does not use Do You Feel Safe in your Home?: Yes Lack of Transportation: No Lack of Food: Never True Current Housing: I Have Housing Concerned About Future Housing: No Difficulty Paying Gas/Electric Bills: No Difficulty Paying for Meds: No Currently Unemployed: No Education: Bachelor's Degree Difficulty w/ Childcare or Family Care: No Living arrangements: alone Occupation/Education: retired Gender identity (if verbalized by the patient): Male Spiritual care concerns: No Agree to blood products: Yes Exam Narrative: APPEARANCE: No acute distress, nontoxic, resting in bed EYES: EOMI HEENT: Normocephalic, atraumatic, OMM RESPIRATORY: No respiratory distress Clear to auscultation bilaterally with no rhonchi wheezing or rales. CARDIOVASCULAR: Regular rate and rhythm without murmurs rubs or gallops. ABDOMINAL: Soft, nontender, nondistended, no rebound or guarding MUSCULOSKELETAl: Moves all extremities. No clubbing, cyanosis or edema. NEURO: AO x2. Following commands, speech normal, no focal deficits. NIHSS 0 SKIN:: Warm, dry. No rashes lesions or abrasions PSYCHIATRIC: Normal affect/mood, Course Vital Signs Vital signs: Vital Signs Temperature 97.9 F 04/21/25 17:09 Pulse Rate 90 04/21/25 17:09 Respiratory Rate 17 04/21/25 17:09 Blood Pressure 151/113 H 04/21/25 17:09 Pulse Oximetry 95 04/21/25 17:09 Oxygen Delivery Room Air 04/21/25 17:09 Temperature 97.9 F 04/21/25 17:09 Pulse Rate 79 04/21/25 18:35 Respiratory Rate 22 H 04/21/25 18:35 Blood Pressure 157/103 H 04/21/25 18:35 Pulse Oximetry 94 04/21/25 18:35 Oxygen Delivery Room Air 04/21/25 17:09 MDM - Altered Mental Status MDM Narrative Medical decision making narrative: 74-year-old male Presenting for altered mental status. On initial evaluation patient was in no acute distress, afebrile, hemodynamic stable. Differentials include but are not limited to: CVA, TIA, ICH, meningitis, UTI, cancer, drug intoxication, hypoglycemia, electrolyte abnormality Notable exam findings: A/O x2, nonfocal neuro exam. Heart and lungs clear. I personally reviewed the patient's lab result. Notable lab findings: Mild leukocytosis at 11.3. Creatinine at baseline, T bili 2.8 but this appears to be baseline from last a month ago. UA clear. UDS negative. I personally reviewed the patient's images and interpret as follows: Chest x-ray shows bibasilar infiltrates I personally reviewed the patient's EKGs: 04/21/2025 at 6:03 p.m.: Normal sinus rhythm rate of 87, left anterior fascicular block, LVH, no acute ST or T-wave changes Patient was given Rocephin and doxycycline for the pneumonia. Suspect that the patient's pneumonia it is contributing to an acute metabolic encephalopathy. Suspect that he does have some level of dementia at baseline that is being exacerbated by this infection. Patient's daughter did arrive and states that this has happened multiple times over the past few months. He has never been diagnosed with dementia with this is now the 3rd or 4th pneumonia that he has been admitted before with similar confusion each time. Given this, I think the patient would benefit from admission for further evaluation. Case was discussed with hospitalist, Dr. Wu, will admit the patient, does recommend increasing antibiotic coverage as he was admitted last month as well, recommended cefepime and vanc and to continue the doxycycline. Medical Records Attestation: I reviewed the patient's medical records. Lab Data Attestation: I reviewed the patient's lab results. 04/21/25 18:10 04/21/25 18:10 Labs: Lab Results 04/21/25 04/21/25 04/21/25 Range/Units 18:10 18:47 18:56 WBC 11.3 H (4.5-10.0) K/mm3 RBC 4.42 L (4.6-6.20) M/mm3 Hgb 13.9 L (14.0-18.0) g/dL Hct 41.4 L (42.0-52.0) % MCV 93.7 (80-100) fl MCH 31.4 (26-34) pg MCHC 33.6 (32-36) g/dl RDW 13.7 (11.5-14.5) % Plt Count 185 (150-375) k/mm3 MPV 9.6 (7.4-10.4) fl Immature Gran % (Auto) 0.4 (0-0.5) % Neut % (Auto) 70.3 (45.5-73.1) % Lymph % (Auto) 16.8 L (18.3-44.2) % [place] % (Auto) 11.9 H (2.6-8.5) % Eos % (Auto) 0.3 (0-4.4) % Baso % (Auto) 0.3 (0.2-1.2) % Lymph # (Auto) 1.89 (0.9-3.2) K/mm3 [place] # (Auto) 1.3 H (0.1-0.6) K/mm3 Eos # (Auto) 0.0 (0-0.3) K/mm3 Baso # (Auto) 0.0 (0.0-0.1) K/mm3 Abs Immat Gran (auto) 0.04 H (0.00-0.031) K/mm3 Absolute Neuts (auto) 7.9 H (1.3-6.7) K/mm3 Absolute Nucleated RBC 0.000 (0.0-0.012) K/mm3 Nucleated RBC % 0.0 (0.0-0.2) % Sodium 135 L (137-145) mmol/L Potassium 3.5 (3.4-5.0) mmol/L Chloride 100 (98-107) mmol/L Carbon Dioxide 28 (22-30) mmol/L Anion Gap 7 (4-12) mmol/L BUN 21 H (9-20) mg/dL Creatinine 1.45 H (0.7-1.3) mg/dL Estim Creat Clear Calc 53 ml/min Estimated GFR 47 L (59 - ) Glucose 111 H (65-110) mg/dL Lactic Acid 1.3 (0.7-2.0) mmol/L Calcium 9.1 (8.4-10.2) mg/dL Total Bilirubin 2.8 H (0.2-1.3) mg/dL AST 28 (17-59) U/L ALT 19 (6-50) U/L Alkaline Phosphatase 67 (38-126) U/L Total Creatine Kinase 45 L (55-170) U/L Troponin I 0.022 (0.000-0.034) ng/mL Total Protein 7.4 (6.3-8.2) g/dL Albumin 3.9 (3.5-5.1) g/dL Urine Color Yellow (Yellow) Urine Appearance Clear (Clear) Urine pH 6.5 (5.0-9.0) Ur Specific [place] 1.024 (1.001-1.035) Urine Protein 1+ H (Negative) mg/dL Urine Glucose (UA) Negative (Negative) mg/dL Urine Ketones Trace H (Negative) mg/dL Ur Blood (Man) Negative (Negative) Urine Nitrate Negative (Negative) Urine Bilirubin Negative (Negative) Urine Urobilinogen 0.2 (<2.0) mg/dL Leukocyte Esterase Rfl Trace H (Negative) ST[place]ISLAW/UL Urine RBC 0-2 (0-2) /hpf Urine WBC 0-5 (0-3) /hpf Ur Squamous Epith Cells None seen (Few) /hpf Urine Bacteria None seen /hpf Urine Casts 0-2 Urine Opiates Screen Negative (Negative) Urine Methadone Screen Negative (Negative) Ur Barbiturates Screen Negative (Negative) Ur Phencyclidine Scrn Negative (Negative) Ur Amphetamine Screen Negative (Negative) U Benzodiazepines Scrn Negative (Negative) Urine Cocaine Screen Negative (Negative) U Cannabinoids Screen Negative (Negative) Imaging Data Radiologist's impression: Impressions Head CT 04/21/25 17:58 Impression: 1.No acute intracranial abnormality. Chest X-Ray 04/21/25 17:59 Impression: Early bilateral pneumonia Discharge Plan Discharge Clinical Impression: Acute metabolic encephalopathy, HAP (hospital-acquired pneumonia) Patient Disposition: Still a Patient Condition: Stable
[2025-04-21 18:17] LABS: Hematocrit 41.4 % (42.0-52.0); Hemoglobin 13.9 g/dL (14.0-18.0); Immature Granulocyte Percent A 0.4 % (0-0.5); Lymphocytes Absolute Auto 1.89 K/mm3 (0.9-3.2); Mean Corpuscular HGB Conc 33.6 g/dl (32-36); Mean Corpuscular Hemoglobin 31.4 pg (26-34); Mean Corpuscular Volume 93.7 fl (80-100); Nucleated Red Blood Cells Absolute Auto 0.000 K/mm3 (0.0-0.012); Nucleated Red Blood Cells Perc 0.0 % (0.0-0.2); Platelet Count Result 185 k/mm3 (150-375); Red Blood Count 4.42 M/mm3 (4.6-6.20); White Blood Count 11.3 K/mm3 (4.5-10.0)
[2025-04-21 18:35] VITALS: BP 157/103; PULSE 79; RESP 22; O2SAT 94
[2025-04-21 18:35] LABS: Alanine Aminotransferase 19 U/L (6-50); Albumin Level 3.9 g/dL (3.5-5.1); Alkaline Phosphatase 67 U/L (38-126); Anion Gap 7 mmol/L (4-12); Aspartate Amino Transferase 28 U/L (17-59); Bilirubin,Total 2.8 mg/dL (0.2-1.3); Blood Urea Nitrogen 21 mg/dL (9-20); Calcium 9.1 mg/dL (8.4-10.2); Carbon Dioxide 28 mmol/L (22-30); Chloride 100 mmol/L (98-107); Creatine Kinase 45 U/L (55-170); Estimated CRCL calculation 53 ml/min; Estimated Glomerular Filt Rate 47; Glucose 111 mg/dL (65-110); Potassium 3.5 mmol/L (3.4-5.0); Sodium 135 mmol/L (137-145); Total Protein 7.4 g/dL (6.3-8.2)
[2025-04-21 18:47] LABS: Troponin I 0.022 ng/mL (0.000-0.034)
[2025-04-21] MEDS: cefTRIAXone 1 GM in SODIUM CHLORIDE 0.9% IV 50 ML 100 ML IVPB (18:55)
[2025-04-21] MEDS: DOXYCYCLINE HYCLATE 100 MG TABLET PO (18:55)
[2025-04-21 19:01] LABS: Add Urine Microscopic? YES; Appearance Urine Clear (Clear); Glucose Urine UA Negative (Negative); Leukocyte Esterase Ur Trace LEU/UL (Negative); Nitrate Urine Negative (Negative); Non Pathogenic Casts 0-2; Specific Grav Ur 1.024 (1.001-1.035)
[2025-04-21 19:13] LABS: Cannabinoid Screen Urine Negative (Negative)
[2025-04-21] MEDS: CEFEPIME 2 GM in SODIUM CHLORIDE 0.9% IV 50 ML 100 ML IVPB (20:23)
--- NOTE | 2025-04-21 20:25 | PC.NURSE ---
Pt placed in hospital bed at this time and moved into a private room. Fall alarm set up on new bed. Yellow triangle moved onto pt new room door.
--- NOTE | 2025-04-21 21:05 | PM.IMHP ---
H&P: HPI History of Present Illness Date/Time: 04/21/25 21:05 Chief Complaint: Altered mental status Narrative: 74-year-old male with PMH memory impairment, GERD, BPPV, mixed hyperlipidemia, AFib, CKD on [facility] on 04/21/2025 with altered mental status. Patient's daughter has been out of town, she checked on him called EMS when she found to be confused. He is A&O x2 in she reports he is usually A&O times 3-4. However, patient has had memory impairment in the past, recent previous admission with altered mental status, CT head showing small-vessel ischemic disease. Patient is a poor historian, comprehends review of systems is negative. He is able to tell me where he is but not the year. CT head without acute findings. Chest x-ray demonstrating small bibasilar infiltrates. Blood cultures obtained. He was given ceftriaxone, and then cefepime and vancomycin. Saturating 94% on room air. WBC 75181, serum creatinine 1.45, glucose 111. Urinalysis not indicative of infection, trace leukocyte esterase. Drug urine screen negative. Review of Systems Review of Systems: All systems reviewed & are unremarkable except as noted in HPI and below (Subjective) [facility] Past Medical History Medical History BMI 30.0-30.9,adult Perforated gallbladder Hospital discharge follow-up Erectile dysfunction Mixed hyperlipidemia Vitamin D deficiency Positional vertigo Memory impairment Hypersomnolence Trigger finger Bilateral hand numbness Benign essential hypertension Psoriasis Stricture of esophagus Insomnia Kidney stone Hearing loss DJD (degenerative joint disease) GERD (gastroesophageal reflux disease) Pre-diabetes Surgical History Surgical History H/O insertion of cholecystostomy tube 01/25/25 Dr Huang 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 He lives by himself in still drives. 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 He is a lifetime nonsmoker. He drinks between 1-4 alcoholic beverages a month. He denies illicit substance use. Code status: Full code (patient would not want long-term ventilatory support) Surrogate decision makers: Shaunna (daughter) and son Smoking status: Never smoker Second hand tobacco smoke exposure: No Alcohol intake: never Drinks per week: 2 Alcohol use details: STATES 2-4 BEERS/WEEK Substance use: never Substance use type: does not use Do You Feel Safe in your Home?: Yes Lack of Transportation: No Lack of Food: Never True Current Housing: I Have Housing Concerned About Future Housing: No Difficulty Paying Gas/Electric Bills: No Difficulty Paying for Meds: No Currently Unemployed: No Education: Bachelor's Degree Difficulty w/ Childcare or Family Care: No Living arrangements: alone Occupation/Education: retired Gender identity (if verbalized by the patient): Male Spiritual care concerns: No Agree to blood products: Yes Meds Home Medications and Allergies Home Medications ?Medication ?Instructions ?Recorded ?Confirmed ?Type Prevagen 10 mg BYMOUTH . daily 03/16/24 04/17/25 History omega-3 fatty acids-fish oil 360 1 cap PO DAILY 03/16/24 04/17/25 History mg-1,200 mg capsule (Fish Oil) pyridoxine (vitamin B6) 100 mg 100 mg PO DAILY 03/16/24 04/17/25 History tablet ascorbic acid (vitamin C) 500 mg 500 mg PO DAILY 07/30/24 04/17/25 History capsule thiamine HCl (vitamin B1) 100 mg 100 mg PO DAILY 07/30/24 04/17/25 History capsule fluticasone propionate 50 2 spray intranasal BID #16 mL 11/28/24 04/17/25 Rx mcg/actuation nasal spray,suspension (Flonase Allergy Relief) zolpidem 10 mg tablet 10 mg PO QHS #30 tabs 12/13/24 04/17/25 Rx donepezil 5 mg tablet 5 mg PO QHS #90 tabs 01/14/25 04/17/25 Rx apixaban 5 mg tablet (Eliquis) 5 mg PO Q12HR #60 tabs 02/06/25 04/17/25 Rx metoprolol succinate 25 mg 25 mg PO QAM #30 tabs 02/06/25 04/17/25 Rx tablet,extended release 24 hr (Toprol XL) ondansetron 4 mg disintegrating 4 mg PO Q8H PRN nausea and 03/08/25 04/17/25 Rx tablet vomiting #7 tabs valsartan 320 mg tablet 320 mg PO DAILY 03/16/25 04/17/25 History levofloxacin 750 mg tablet 750 mg PO DAILY #2 tabs 03/21/25 04/17/25 Rx potassium chloride 20 mEq oral 40 meq PO DAILY #15 ea 03/21/25 04/17/25 Rx packet omeprazole 40 mg capsule,delayed See Rx Instructions .Route 04/09/25 04/17/25 Rx release .COMPLEX #180 caps pravastatin 40 mg tablet See Rx Instructions .Route 04/15/25 04/17/25 Rx .COMPLEX #90 tabs Allergies Allergy/AdvReac Type Severity Reaction Status Date / Time No Known Allergies Allergy Verified 04/17/25 11:35 Vital Signs Vital Signs - 24 hr 04/21/25 17:09 04/21/25 18:35 Temperature 97.9 F Pulse Rate 90 79 Respiratory Rate 17 22 H Blood Pressure 151/113 H 157/103 H Pulse Oximetry 95 94 Oxygen Delivery Room Air Exam Const: General: comfortable and no acute distress Other: A&O x2 HENMT: Mouth: Yes dry mucous membranes Eyes: Pupils: Equal, round and reactive pupils present Neck: Neck: supple Resp: Effort & Inspection: normal respiratory effort Auscultation: clear to auscultation bilaterally Cardio: Rate: regular rate Rhythm: regular rhythm Heart sounds: no murmurs GI: Inspection: non-distended GI Palp: Yes Soft to palpation : General: Yes bladder normal to palpation Neuro: Motor exam (neuro): 5/5 motor strength present throughout Other: Poor participation with exam Extrem: General: no edema H&P: Results Labs Labs: Short CBC 04/21/25 Range/Units 18:10 WBC 11.3 H (4.5-10.0) K/mm3 Hgb 13.9 L (14.0-18.0) g/dL Hct 41.4 L (42.0-52.0) % Plt Count 185 (150-375) k/mm3 BMP 04/21/25 18:10 Sodium 135 L Potassium 3.5 Chloride 100 Carbon Dioxide 28 BUN 21 H Creatinine 1.45 H Glucose 111 H Calcium 9.1 Cardiac Enzymes 04/21/25 Range/Units 18:10 Total Creatine Kinase 45 L (55-170) U/L Troponin I 0.022 (0.000-0.034) ng/mL Liver Function 04/21/25 Range/Units 18:10 Total Bilirubin 2.8 H (0.2-1.3) mg/dL AST 28 (17-59) U/L ALT 19 (6-50) U/L Alkaline Phosphatase 67 (38-126) U/L Albumin 3.9 (3.5-5.1) g/dL Urine 04/21/25 Range/Units 18:47 Urine Color Yellow (Yellow) Urine Appearance Clear (Clear) Urine pH 6.5 (5.0-9.0) Ur Specific [place] 1.024 (1.001-1.035) Urine Protein 1+ H (Negative) mg/dL Urine Glucose (UA) Negative (Negative) mg/dL Assessment and Plan Assessment and plan (1) Altered mental status: Code(s): R41.82 - Altered mental status, unspecified Status: Acute (2) Multifocal pneumonia: Code(s): J18.8 - Other pneumonia, unspecified organism Status: Acute (3) Dehydration: Code(s): E86.0 - Dehydration Status: Acute Plan Altered mental status, underlying neurocognitive disorder. WBC 59546, treat for pneumonia, doxycycline, cefepime, vancomycin. Trend leukocytosis, follow blood cultures. Serum creatinine stable. Start lactated Ringer's at 100 cc/hour. He is on donepezil at home, restart. 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 Medication reconciliation pending. Restart MACHINE GUNNER Eliquis for AFib. Full code. Ambulate with assistance, fall precautions. Heart healthy diet. Full code. Hospitalist MIPS Advance Care Plan I have confirmed that the patient's Advanced Care Plan is present, code status is documented, or surrogate decision maker is listed in patient medical record.: Yes Medication Reconciliation I have utilized all available resources to obtain, update and review the patients current medications (includes all prescriptions, OTC, herbals, cannabis, and nutritional supplements).: Yes
[2025-04-21] MEDS: VANCOMYCIN 1,250 MG/NS 250 ML 1,250 MG/250 ML BAG 166.67 MG IVPB (21:06)
[2025-04-21 21:17] VITALS: BP 145/98; PULSE 88; RESP 23; O2SAT 95
[2025-04-21] MEDS: LACTATED RINGERS 1,000 ML 100 ML IV CONT (21:32)
--- NOTE | 2025-04-21 21:32 | PC.NURSE ---
[facility] states Vancomycin and LR are IV comaptible.
[2025-04-21 23:21] LABS: MRSA (PCR) NOT DETECTED (NOT DETECTE)
[2025-04-22] VITALS (12 sets, daily range): BP systolic 140–177; BP diastolic 80–115; PULSE 65–82; RESP 15–23; TEMP 36.2–36.4; O2SAT 91–96
[2025-04-22] MEDS: VANCOMYCIN 1,250 MG/NS 250 ML 1,250 MG/250 ML BAG 166.67 MG IVPB (00:48)
--- NOTE | 2025-04-22 04:23 | PC.NURSE ---
Pt states he is unable to tell me his home medications he takes.
--- NOTE | 2025-04-22 04:27 | PC.NURSE ---
Pt offered a wash cloth to clean himself if needed.
[2025-04-22 05:16] LABS: Hematocrit 39.3 % (42.0-52.0); Hemoglobin 13.4 g/dL (14.0-18.0); Immature Granulocyte Percent A 0.4 % (0-0.5); Lymphocytes Absolute Auto 2.17 K/mm3 (0.9-3.2); Mean Corpuscular HGB Conc 34.1 g/dl (32-36); Mean Corpuscular Hemoglobin 31.6 pg (26-34); Mean Corpuscular Volume 92.7 fl (80-100); Nucleated Red Blood Cells Absolute Auto 0.000 K/mm3 (0.0-0.012); Nucleated Red Blood Cells Perc 0.0 % (0.0-0.2); Platelet Count Result 167 k/mm3 (150-375); Red Blood Count 4.24 M/mm3 (4.6-6.20); White Blood Count 9.1 K/mm3 (4.5-10.0)
[2025-04-22 05:35] LABS: Anion Gap 6 mmol/L (4-12); Blood Urea Nitrogen 19 mg/dL (9-20); Calcium 8.6 mg/dL (8.4-10.2); Carbon Dioxide 26 mmol/L (22-30); Chloride 102 mmol/L (98-107); Estimated CRCL calculation 58 ml/min; Estimated Glomerular Filt Rate 52; Glucose 106 mg/dL (65-110); Magnesium 1.8 mg/dL (1.6-2.3); Potassium 3.2 mmol/L (3.4-5.0); Sodium 134 mmol/L (137-145)
[2025-04-22 05:53] LABS: Procalcitonin 0.2 ng/mL
[2025-04-22] MEDS: DOXYCYCLINE IV 100 MG in SODIUM CHLORIDE 0.9% IV 100 ML IVPB ×2 (06:53→18:10)
[2025-04-22] MEDS: CEFEPIME 2 GM in SODIUM CHLORIDE 0.9% IV 50 ML 100 ML IVPB ×2 (08:50→20:18)
--- NOTE | 2025-04-22 10:10 | WPCEDHO ---
ED Hand Off Checklist All vitals saved:yes IV Site documented:yes All med administrations documented:yes Triage Note Triage Note Pt to ED from via [facility] co AMS 04/21/25 17:09 . Pt daughter informed EMS she went on weekend getaway, left Tuesday reports he was acting normal, came back today and reported he seemed off. Pt was also co intermittent abd pain. Daughter reported to EMS pt baseline is A&Ox3-4 with some confusion since last hospital stay, on arrival pt A&Ox2 90% on RA for EMS 95% on 2L O2, pt 95% on room air on arrival Allergies No Known Allergies Allergy (Verified 04/17/25 11:35) Current Diagnoses Dehydration (04/21/25) Other pneumonia, unspecified organism (04/21/25) Altered mental status, unspecified (04/21/25) Family History (Last Reviewed 04/21/25 @ 17:50 by Juan Santa DO) Father Family history of congestive heart failure Family history of cardiovascular disease Family history of heart disease in male family member before age 55 Active Medications including assessments/comments Lactated Ringer's (Lr - Lactated Ringers Iv) 1,000 mls @ 100 mls/hr IV CONT .Q10H DREAD Last Admin: 04/21/25 21:32 Dose: 100 mls/hr Documented By: KRZ Infusion/Titration Document 04/21/25 21:32 KRZ (Rec: 04/21/25 21:32 KRZ [id number]) Intake IV Site Peripheral Access Left Antecubital Container Volume 1,000 Waste Amount 0 Dosing Infusion Rate 100 Cumulative Dose Not Applicable Increase/Decrease Started Elapsed Time Elapsed Time ( 0m minutes) Doxycycline Hyclate 100 mg/ (Sodium Chloride) 100 mls @ 100 mls/hr IVPB Q12H DREAD Last Infusion: 04/22/25 08:00 Dose: Infused Documented By: CFG Infusion/Titration Document 04/22/25 08:00 CFG (Rec: 04/22/25 09:34 CFG [id number]) Intake Intake 100 Cumulative Intake ( 100 bag) Cumulative Intake ( 100 Rx) Container Volume 0 Waste Amount 0 Dosing Infusion Rate 0 Cumulative Dose 100 Increase/Decrease Infused Elapsed Time Elapsed Time ( 1h 7m minutes) Admin: 04/22/25 06:53 Dose: 100 mls/hr Documented By: KRZ Infusion/Titration Document 04/22/25 06:53 KRZ (Rec: 04/22/25 06:53 KRZ [id number]) Intake IV Site Peripheral Access Left Antecubital Container Volume 100 Waste Amount 0 Dosing Infusion Rate 100 Increase/Decrease Started Elapsed Time Elapsed Time ( 0m minutes) Cefepime HCl 2 gm/ Sodium (Chloride) 50 mls @ 100 mls/hr IVPB Q12H DREAD Last Infusion: 04/22/25 09:30 Dose: Infused Documented By: CFG Infusion/Titration Document 04/22/25 09:30 CFG (Rec: 04/22/25 09:58 CFG [id number]) Intake Intake 50 Cumulative Intake ( 50 bag) Cumulative Intake ( 50 Rx) Container Volume 0 Waste Amount 0 Dosing Infusion Rate 0 Cumulative Dose 2 Increase/Decrease Infused Elapsed Time Elapsed Time ( 40m minutes) Admin: 04/22/25 08:50 Dose: 100 mls/hr Documented By: LIBIA Infusion/Titration Document 04/22/25 08:50 CFG (Rec: 04/22/25 09:00 CFG [id number]) Intake IV Site Peripheral Access Left Antecubital Container Volume 50 Waste Amount 0 Dosing Infusion Rate 100 Increase/Decrease Started Elapsed Time Elapsed Time ( 0m minutes) Administered/Completed Medications Discontinued Medications Doxycycline Hyclate (Doxycycline Hyclate 100 Mg Tablet) 100 mg PO ONCE ONE Stop: 04/21/25 18:17 Last Admin: 04/21/25 18:55 Dose: 100 mg Documented By: TOM Ceftriaxone Sodium 1 gm/ (Sodium Chloride) 50 mls @ 100 mls/hr IVPB ONCE STA Stop: 04/21/25 18:45 Last Infusion: 04/21/25 20:13 Dose: Infused Documented By: Admin: 04/21/25 18:55 Dose: 100 mls/hr Documented By: TOM Cefepime HCl 2 gm/ Sodium (Chloride) 50 mls @ 100 mls/hr IVPB ONCE STA Stop: 04/21/25 20:09 Last Infusion: 04/21/25 21:00 Dose: Infused Documented By: Admin: 04/21/25 20:23 Dose: 100 mls/hr Documented By: JONNY Vancomycin HCl (Vancomycin 1,250 Mg/Ns 250 Ml) 1,250 mg in 250 mls @ 166.667 mls/hr IVPB ONCE ONE Stop: 04/21/25 22:29 Last Infusion: 04/22/25 00:48 Dose: Infused Documented By: Admin: 04/21/25 21:06 Dose: 166.67 mls/hr Documented By: JONNY Vancomycin HCl (Vancomycin 1,250 Mg/Ns 250 Ml) 1,250 mg in 250 mls @ 166.667 mls/hr IVPB ONCE ONE Stop: 04/21/25 23:59 Last Infusion: 04/22/25 05:17 Dose: Infused Documented By: Admin: 04/22/25 00:48 Dose: 166.67 mls/hr Documented By: JONNY Notes 04/22/25 04:27 Nurse Note by Amanda Green Pt offered a wash cloth to clean himself if needed. Initialized on 04/22/25 04:27 - END OF NOTE 04/22/25 04:23 Nurse Note by Amanda Green Pt states he is unable to tell me his home medications he takes. Initialized on 04/22/25 04:23 - END OF NOTE 04/21/25 21:32 Nurse Note by Amanda Green [facility] states Vancomycin and LR are IV comaptible. Initialized on 04/21/25 21:32 - END OF NOTE 04/21/25 20:25 Nurse Note by Amanda Green Pt placed in hospital bed at this time and moved into a private room. Fall alarm set up on new bed. Yellow triangle moved onto pt new room door. Initialized on 04/21/25 20:25 - END OF NOTE Interventions/Assessments IV / Saline Lock, Insert Start: 04/21/25 17:04 Freq: Status: Active Protocol: Document 04/22/25 09:00 CFG (Rec: 04/22/25 09:57 CFG [id number]) IV Assessment Peripheral Access Right Forearm IV Catheter Access Initiated IV Insertion Date 04/22/25 IV Insertion Time 09:00 Catheter Gauge 20 IV Insertion 1 Attempts IV Site Assessment WNL IV Care and WNL Maintenance PA: Cardiovascular Assessment Start: 04/21/25 17:04 Freq: Status: Complete Protocol: Document 04/21/25 17:26 TOM (Rec: 04/21/25 17:27 TOM [id number]) Cardiovascular Assessment Cardiovascular None Symptoms PA: Neurological Assessment Start: 04/21/25 17:04 Freq: Status: Complete Protocol: Document 04/22/25 06:12 KRZ (Rec: 04/22/25 06:13 KRZ [id number]) Neurological Assessment Level of Alert Consciousness Arousable to Verbal Orientation Oriented to Person,Oriented to Place Neurological Confusion Symptoms Hallucination Type None Behavior Cooperative Patient Able to Comprehend Comprehension Memory Description Short Term Impaired Ability to Maintain Unable to Assess Balance Facial Symmetry Symmetrical Speech Pattern Clear PA: Respiratory Assessment Start: 04/21/25 17:04 Freq: Status: Complete Protocol: Document 04/22/25 06:12 KRZ (Rec: 04/22/25 06:13 KRZ [id number]) Respiratory Assessment Respiratory WNL Except Parameters Symptoms Congestion,Cough Effort Normal Depth Normal Chest Expansion Symmetrical Adult Capillary Normal/Less than 2 Seconds Refill Cough Description Non-Productive Cough Frequency Intermittent Sputum Amount None Oxygen Delivery Oxygen Delivery Room Air Pulse Oximetry (90- 95 100) Last Vital Signs Temperature 97.9 F 04/21/25 17:09 Pulse Rate 66 04/22/25 09:30 Respiratory Rate 19 04/22/25 09:30 Pulse Oximetry 91 04/22/25 09:30 Blood Pressure 158/97 H 04/22/25 09:30 Blood Pressure Mean 117 04/22/25 09:30 Oxygen Delivery Room Air 04/22/25 06:12 Weight 114.7 kg 04/21/25 17:09 Last Result - Abnormals Only WBC 11.3 K/mm3 (4.5-10.0) H 04/21/25 18:10 RBC 4.24 M/mm3 (4.6-6.20) L 04/22/25 05:05 Hgb 13.4 g/dL (14.0-18.0) L 04/22/25 05:05 Hct 39.3 % (42.0-52.0) L 04/22/25 05:05 Lymph % (Auto) 16.8 % (18.3-44.2) L 04/21/25 18:10 [place] % (Auto) 12.3 % (2.6-8.5) H 04/22/25 05:05 [place] # (Auto) 1.1 K/mm3 (0.1-0.6) H 04/22/25 05:05 Abs Immat Gran (auto) 0.04 K/mm3 (0.00-0.031) H 04/22/25 05:05 Absolute Neuts (auto) 7.9 K/mm3 (1.3-6.7) H 04/21/25 18:10 Sodium 134 mmol/L (137-145) L 04/22/25 05:05 Potassium 3.2 mmol/L (3.4-5.0) L 04/22/25 05:05 BUN 21 mg/dL (9-20) H 04/21/25 18:10 Creatinine 1.33 mg/dL (0.7-1.3) H 04/22/25 05:05 Estimated GFR 52 (59-) L 04/22/25 05:05 Glucose 111 mg/dL (65-110) H 04/21/25 18:10 Total Bilirubin 2.8 mg/dL (0.2-1.3) H 04/21/25 18:10 Total Creatine Kinase 45 U/L (55-170) L 04/21/25 18:10 Urine Protein 1+ mg/dL (Negative) H 04/21/25 18:47 Urine Ketones Trace mg/dL (Negative) H 04/21/25 18:47 Leukocyte Esterase Rfl Trace STANISLAW/UL (Negative) H 04/21/25 18:47
--- NOTE | 2025-04-22 11:05 | ADMGEN ---
This patient, Oleg Tay, was admitted to [facility] Surg Room 315-02. Patient/family oriented to hospital policies and general routines including ID bracelet, bed and alarms, visiting hours, pain management, procedures, bathroom and other care routines, personal items, smoking policy, room service/diet, and visiting hours. Information on how to activate the Rapid Response Team has been discussed. Patient/Family are encouraged to report perceived risks to care and to ask questions if they do not understand what they are told or what they should do.
--- NOTE | 2025-04-22 13:42 | PC.NURSE ---
returned daughter Shaunna's call to update her on pt condition and room number, also reviewed home med list with Jose Angel and she was able to answer a question about one med
--- NOTE | 2025-04-22 15:15 | PM.IMPN ---
Progress Note: A&P Assessment and Plan (1) Altered mental status: Code(s): R41.82 - Altered mental status, unspecified Status: Acute Assessment and Plan: patient's daughter reported the patient was more confused unsure what patients baseline is s/p head CT without acute findings on IV antibiotics for pneumonia (2) Multifocal pneumonia: Code(s): J18.8 - Other pneumonia, unspecified organism Status: Acute Assessment and Plan: s/p CXR with early bilateral pneumonia IV vancomycin IV cefepime IV doxycycline f/u blood cultures AM labs (3) Dehydration: Code(s): E86.0 - Dehydration Status: Acute Assessment and Plan: s/p IV fluids encourage PO fluids AM labs (4) Atrial fibrillation: Code(s): I48.91 - Unspecified atrial fibrillation Status: Acute Assessment and Plan: continue Eliquis for anticoagulation continue metoprolol for rate control (5) Hypertension: Code(s): I10 - Essential (primary) hypertension Status: Acute Assessment and Plan: continue metoprolol continue losartan Subjective Date/time seen: 04/22/25 15:15 Interval history: Patient seen for a follow up visit. Patient lying in bed, in no acute distress. Patient denies acute complaints. Patient is oriented to self and place. He is unable to tell me the month, year or who the president is. He reports he is unsure why he is in the hospital. Patient is on IV antibiotics for pneumonia. Review of Systems Review of Systems: All systems reviewed & are unremarkable except as noted in HPI and below Exam Const: General: comfortable and no acute distress Other: A&O x2 HENMT: Mouth: Yes dry mucous membranes Eyes: Pupils: Equal, round and reactive pupils present Neck: Neck: supple Resp: Effort & Inspection: normal respiratory effort Auscultation: clear to auscultation bilaterally Cardio: Rate: regular rate Rhythm: regular rhythm Heart sounds: no murmurs GI: Inspection: non-distended GI Palp: Yes Soft to palpation Auscultation: normal bowel sounds : General: Yes bladder normal to palpation Skin: General skin exam: normal color and no rashes or lesions noted Neuro: Cranial nerves: Yes Equal, round and reactive pupils present Motor exam (neuro): 5/5 motor strength present throughout Other: Poor participation with exam, alert and oriented x 1-[address]. Unable to tell me month, year or who the president is. Patient does not know why he is at the hospital. Extrem: General: no edema Psych: Affect: normal affect Objective Data Vital Signs Vital Signs: Vital Signs - 24 hr 04/21/25 17:09 04/21/25 18:35 04/21/25 21:17 Temperature 97.9 F Pulse Rate 90 79 88 Respiratory Rate 17 22 H 23 H Blood Pressure 151/113 H 157/103 H 145/98 H Pulse Oximetry 95 94 95 Oxygen Delivery Room Air 04/22/25 00:55 04/22/25 05:34 04/22/25 06:12 Temperature Pulse Rate 82 71 Respiratory Rate 23 H 15 Blood Pressure 159/91 H 175/98 H Pulse Oximetry 93 96 95 Oxygen Delivery Room Air 04/22/25 07:15 04/22/25 08:00 04/22/25 09:30 Temperature Pulse Rate 66 65 66 Respiratory Rate 16 20 19 Blood Pressure 151/99 H 160/100 H 158/97 H Pulse Oximetry 94 94 91 Oxygen Delivery 04/22/25 10:53 04/22/25 10:57 04/22/25 12:00 Temperature 97.5 F L 97.2 F L Pulse Rate 73 66 69 Respiratory Rate 18 19 Blood Pressure 150/101 H 144/94 H Pulse Oximetry 95 94 Oxygen Delivery 04/22/25 13:14 Temperature Pulse Rate Respiratory Rate Blood Pressure 140/80 Pulse Oximetry Oxygen Delivery Intake/Output Intake/Output: Intake & Output 04/19/25 04/20/25 04/21/25 04/22/25 23:59 23:59 23:59 23:59 Intake Total 100 890 Output Total 600 Balance 100 290 Meds/Results Medications: Active Medications Generic Name Dose Route Start Last Admin Trade Name Freq PRN Reason Stop Dose Admin Lactated Ringer's 1,000 mls @ 100 mls/hr 04/21/25 21:20 04/21/25 21:32 Lr - Lactated Ringers Iv IV CONT 100 mls/hr .Q10H DREAD Administration Doxycycline Hyclate 100 mg/ 100 mls @ 100 mls/hr 04/22/25 07:00 04/22/25 08:00 Sodium Chloride IVPB Infused Q12H DREAD Infusion Vancomycin HCl 1,500 mg in 500 mls @ 250 mls/hr 04/22/25 21:00 Vancomycin 1,500 Mg/Ns 500 Ml IVPB Q24H [facility] Cefepime HCl 2 gm/ Sodium 50 mls @ 100 mls/hr 04/22/25 08:00 04/22/25 09:30 Chloride IVPB Infused Q12H DREAD Infusion Radiology Results: ITS Impressions Head CT 04/21/25 17:58 Impression: 1.No acute intracranial abnormality. Chest X-Ray 04/21/25 17:59 Impression: Early bilateral pneumonia Labs Labs: Laboratory Results - last 24 hr 04/21/25 04/21/25 04/21/25 18:10 18:47 18:56 WBC 11.3 H RBC 4.42 L Hgb 13.9 L Hct 41.4 L MCV 93.7 MCH 31.4 MCHC 33.6 RDW 13.7 Plt Count 185 MPV 9.6 Immature Gran % (Auto) 0.4 Neut % (Auto) 70.3 Lymph % (Auto) 16.8 L [place] % (Auto) 11.9 H Eos % (Auto) 0.3 Baso % (Auto) 0.3 Lymph # (Auto) 1.89 [place] # (Auto) 1.3 H Eos # (Auto) 0.0 Baso # (Auto) 0.0 Abs Immat Gran (auto) 0.04 H Absolute Neuts (auto) 7.9 H Absolute Nucleated RBC 0.000 Nucleated RBC % 0.0 Sodium 135 L Potassium 3.5 Chloride 100 Carbon Dioxide 28 Anion Gap 7 BUN 21 H Creatinine 1.45 H Estim Creat Clear Calc 53 Estimated GFR 47 L Glucose 111 H Lactic Acid 1.3 Calcium 9.1 Magnesium Total Bilirubin 2.8 H AST 28 ALT 19 Alkaline Phosphatase 67 Total Creatine Kinase 45 L Troponin I 0.022 Total Protein 7.4 Albumin 3.9 Procalcitonin Urine Color Yellow Urine Appearance Clear Urine pH 6.5 Ur Specific [place] 1.024 Urine Protein 1+ H Urine Glucose (UA) Negative Urine Ketones Trace H Ur Blood (Man) Negative Urine Nitrate Negative Urine Bilirubin Negative Urine Urobilinogen 0.2 Leukocyte Esterase Rfl Trace H Urine RBC 0-2 Urine WBC 0-5 Ur Squamous Epith Cells None seen Urine Bacteria None seen Urine Casts 0-2 Nasal MRSA (PCR) Urine Opiates Screen Negative Urine Methadone Screen Negative Ur Barbiturates Screen Negative Ur Phencyclidine Scrn Negative Ur Amphetamine Screen Negative U Benzodiazepines Scrn Negative Urine Cocaine Screen Negative U Cannabinoids Screen Negative 04/21/25 04/22/25 22:00 05:05 WBC 9.1 RBC 4.24 L Hgb 13.4 L Hct 39.3 L MCV 92.7 MCH 31.6 MCHC 34.1 RDW 13.7 Plt Count 167 MPV 9.9 Immature Gran % (Auto) 0.4 Neut % (Auto) 61.4 Lymph % (Auto) 23.9 [place] % (Auto) 12.3 H Eos % (Auto) 1.4 Baso % (Auto) 0.6 Lymph # (Auto) 2.17 [place] # (Auto) 1.1 H Eos # (Auto) 0.1 Baso # (Auto) 0.1 Abs Immat Gran (auto) 0.04 H Absolute Neuts (auto) 5.6 Absolute Nucleated RBC 0.000 Nucleated RBC % 0.0 Sodium 134 L Potassium 3.2 L Chloride 102 Carbon Dioxide 26 Anion Gap 6 BUN 19 Creatinine 1.33 H Estim Creat Clear Calc 58 Estimated GFR 52 L Glucose 106 Lactic Acid Calcium 8.6 Magnesium 1.8 Total Bilirubin AST ALT Alkaline Phosphatase Total Creatine Kinase Troponin I Total Protein Albumin Procalcitonin 0.2 Urine Color Urine Appearance Urine pH Ur Specific [place] Urine Protein Urine Glucose (UA) Urine Ketones Ur Blood (Man) Urine Nitrate Urine Bilirubin Urine Urobilinogen Leukocyte Esterase Rfl Urine RBC Urine WBC Ur Squamous Epith Cells Urine Bacteria Urine Casts Nasal MRSA (PCR) Not detected Urine Opiates Screen Urine Methadone Screen Ur Barbiturates Screen Ur Phencyclidine Scrn Ur Amphetamine Screen U Benzodiazepines Scrn Urine Cocaine Screen U Cannabinoids Screen Quality VTE Prophylaxis VTE prophylaxis: pharmacologic ordered
[2025-04-22] MEDS: APIXABAN 5 MG TABLET PO (20:19)
[2025-04-22] MEDS: FLUTICASONE PROPIONATE 0.05% NA SPR 16 GM BTL (*BKC) 2 SPRAY NASAL (20:19)
[2025-04-22] MEDS: DONEPEZIL HCL 5 MG TABLET PO (20:26)
[2025-04-23] VITALS (9 sets, daily range): BP systolic 142–183; BP diastolic 82–109; PULSE 69–83; RESP 17–18; TEMP 36.2–37.3; O2SAT 93–97; BMI 30.7
[2025-04-23 05:53] LABS: Hematocrit 40.0 % (42.0-52.0); Hemoglobin 13.7 g/dL (14.0-18.0); Immature Granulocyte Percent A 0.4 % (0-0.5); Lymphocytes Absolute Auto 1.83 K/mm3 (0.9-3.2); Mean Corpuscular HGB Conc 34.3 g/dl (32-36); Mean Corpuscular Hemoglobin 31.6 pg (26-34); Mean Corpuscular Volume 92.2 fl (80-100); Nucleated Red Blood Cells Absolute Auto 0.000 K/mm3 (0.0-0.012); Nucleated Red Blood Cells Perc 0.0 % (0.0-0.2); Platelet Count Result 180 k/mm3 (150-375); Red Blood Count 4.34 M/mm3 (4.6-6.20); White Blood Count 7.5 K/mm3 (4.5-10.0)
[2025-04-23] MEDS: ACETAMINOPHEN 325 MG TABLET 650 MG PO (05:56)
[2025-04-23] MEDS: DOXYCYCLINE IV 100 MG in SODIUM CHLORIDE 0.9% IV 100 ML IVPB ×2 (06:00→18:07)
[2025-04-23] MEDS: VALSARTAN 160 MG TABLET 320 MG PO (06:10)
[2025-04-23] MEDS: METOPROLOL SUCCINATE EXT REL 25 MG TABCR PO (06:11)
[2025-04-23 06:15] LABS: Alanine Aminotransferase 20 U/L (6-50); Albumin Level 3.9 g/dL (3.5-5.1); Alkaline Phosphatase 74 U/L (38-126); Anion Gap 8 mmol/L (4-12); Aspartate Amino Transferase 27 U/L (17-59); Bilirubin,Total 2.0 mg/dL (0.2-1.3); Blood Urea Nitrogen 19 mg/dL (9-20); Calcium 8.9 mg/dL (8.4-10.2); Carbon Dioxide 26 mmol/L (22-30); Chloride 101 mmol/L (98-107); Estimated CRCL calculation 54 ml/min; Estimated Glomerular Filt Rate 49; Glucose 110 mg/dL (65-110); Potassium 3.8 mmol/L (3.4-5.0); Sodium 135 mmol/L (137-145); Total Protein 7.4 g/dL (6.3-8.2)
--- NOTE | 2025-04-23 07:55 | P.PNIM_ITS ---
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 to find out what his baseline is (2) Multifocal pneumonia: Code(s): J18.8 - Other pneumonia, unspecified organism Status: Acute Assessment and Plan: s/p CXR with early bilateral pneumonia IV vancomycin IV cefepime IV doxycycline f/u blood cultures AM labs (3) Dehydration: Code(s): E86.0 - Dehydration Status: Acute Assessment and Plan: s/p IV fluids encourage PO fluids AM labs (4) Atrial fibrillation: Code(s): I48.91 - Unspecified atrial fibrillation Status: Acute Assessment and Plan: continue Eliquis for anticoagulation continue metoprolol for rate control (5) Hypertension: Code(s): I10 - Essential (primary) hypertension Status: Acute Assessment and Plan: continue metoprolol continue losartan (6) Elevated bilirubin: Code(s): R17 - Unspecified jaundice Status: Acute Assessment and Plan: bilirubin 2.6 on admission then 2.8 AST, ALT and alk phos WNL s/p IV fluids today bili 2.0 continue to monitor Subjective Date/time seen: 04/23/25 07:55 Interval history: Patient seen for a follow up visit. Patient denies acute pain. Patient's orientation status the same today as yesterday. Care coordination notified to contact daughter to see if patient is at his baseline. Question if patient is safe to discharge home alone. PT/OT ordered. Patient's MRSA PCR negative and IV vancomycin stopped. Patient continues on IV cefepime and IV doxycycline. Patient is on room air. Patient's labs are stable. Plan for discharge home tomorrow on oral antibiotics if daughter is comfortable with him being home alone. Review of Systems Review of Systems: All systems reviewed & are unremarkable except as noted in HPI and below Exam Const: General: comfortable and no acute distress Other: A&O x2 HENMT: Mouth: Yes dry mucous membranes Eyes: Pupils: Equal, round and reactive pupils present Neck: Neck: supple Resp: Effort & Inspection: normal respiratory effort Auscultation: clear to auscultation bilaterally Cardio: Rate: regular rate Rhythm: regular rhythm Heart sounds: no murmurs GI: Inspection: non-distended GI Palp: Yes Soft to palpation Auscultation: normal bowel sounds : General: Yes bladder normal to palpation Skin: General skin exam: normal color and no rashes or lesions noted Neuro: Cranial nerves: Yes Equal, round and reactive pupils present Motor exam (neuro): 5/5 motor strength present throughout Other: Poor participation with exam, alert and oriented x 1-[address]. Unable to tell me month, year or who the president is. Patient does not know why he is at the hospital. Extrem: General: no edema Psych: Affect: normal affect Objective Data Vital Signs Vital Signs: Vital Signs - 24 hr 04/22/25 08:00 04/22/25 09:30 04/22/25 10:53 Temperature 97.5 F L Pulse Rate 65 66 73 Respiratory Rate 20 19 18 Blood Pressure 160/100 H 158/97 H 150/101 H Pulse Oximetry 94 91 95 04/22/25 10:57 04/22/25 12:00 04/22/25 13:14 Temperature 97.2 F L Pulse Rate 66 69 Respiratory Rate 19 Blood Pressure 144/94 H 140/80 Pulse Oximetry 94 04/22/25 16:00 04/22/25 16:00 04/22/25 20:00 Temperature 97.1 F L 97.5 F L Pulse Rate 78 72 75 Respiratory Rate 17 17 Blood Pressure 150/96 H 177/115 H Pulse Oximetry 95 96 04/22/25 20:00 04/23/25 00:00 04/23/25 00:00 Temperature 99.1 F Pulse Rate 72 69 74 Respiratory Rate 17 Blood Pressure 154/100 H Pulse Oximetry 97 04/23/25 04:00 04/23/25 04:00 04/23/25 06:11 Temperature 97.3 F L Pulse Rate 72 69 72 Respiratory Rate 18 Blood Pressure 183/109 H Pulse Oximetry 97 Intake/Output Intake/Output: Intake & Output 04/20/25 04/21/25 04/22/25 04/23/25 23:59 23:59 23:59 23:59 Intake Total 100 1480 400 Output Total 1820 400 Balance 100 -340 0 Meds/Results Medications: Active Medications Generic Name Dose Route Start Last Admin Trade Name Freq PRN Reason Stop Dose Admin Acetaminophen 650 mg 04/23/25 05:13 04/23/25 05:56 Acetaminophen 325 Mg Tablet PO 650 mg Q6H PRN Administration Moderate Pain (4-6) Apixaban 5 mg 04/22/25 21:00 04/22/25 20:19 Apixaban 5 Mg Tablet PO 5 mg Q12HR DREAD Administration Ascorbic Acid 500 mg 04/23/25 09:00 Ascorbic Acid 500 Mg Tablet PO DAILY [facility] Donepezil HCl 5 mg 04/22/25 21:00 04/22/25 20:26 Donepezil Hcl 5 Mg Tablet PO 5 mg QHS DREAD Administration Fish Oil 1 gm 04/23/25 09:00 [place] 3 Polyunsat Fatty Acids 1 Gm Cap PO DAILY [facility] Fluticasone Propionate 2 spray 04/22/25 21:00 04/22/25 20:19 Fluticasone Propionate 0.05% Na Spr 16 Gm Btl (*Bkc) NASAL 2 spray Q12HR DREAD Administration Doxycycline Hyclate 100 mg/ 100 mls @ 100 mls/hr 04/22/25 07:00 04/23/25 06:52 Sodium Chloride IVPB Infused Q12H DREAD Infusion Cefepime HCl 2 gm/ Sodium 50 mls @ 100 mls/hr 04/22/25 08:00 04/22/25 20:48 Chloride IVPB Infused Q12H DREAD Infusion Metoprolol Succinate 25 mg 04/23/25 09:00 04/23/25 06:11 Metoprolol Succinate Ext Rel 25 Mg Tabcr PO 25 mg QAM DREAD Administration Pantoprazole Sodium 40 mg 04/23/25 09:00 Pantoprazole 40 Mg Tablet PO Q12HR [facility] Pravastatin Sodium 40 mg 04/23/25 09:00 Pravastatin Sodium 20 Mg Tablet BY MOUTH DAILY [facility] Pyridoxine HCl 100 mg 04/23/25 09:00 Pyridoxine Hcl 50 Mg Tablet PO DAILY [facility] Thiamine HCl 100 mg 04/23/25 09:00 Thiamine Hcl 100 Mg Tablet PO DAILY [facility] Valsartan 320 mg 04/23/25 09:00 04/23/25 06:10 Valsartan 160 Mg Tablet PO 320 mg DAILY DREAD Administration Radiology Results: ITS Impressions Head CT 04/21/25 17:58 Impression: 1.No acute intracranial abnormality. Chest X-Ray 04/21/25 17:59 Impression: Early bilateral pneumonia Labs Labs: Laboratory Results - last 24 hr 04/23/25 05:33 WBC 7.5 RBC 4.34 L Hgb 13.7 L Hct 40.0 L MCV 92.2 MCH 31.6 MCHC 34.3 RDW 13.3 Plt Count 180 MPV 9.6 Immature Gran % (Auto) 0.4 Neut % (Auto) 60.7 Lymph % (Auto) 24.4 [place] % (Auto) 12.1 H Eos % (Auto) 2.0 Baso % (Auto) 0.4 Lymph # (Auto) 1.83 [place] # (Auto) 0.9 H Eos # (Auto) 0.2 Baso # (Auto) 0.0 Abs Immat Gran (auto) 0.03 Absolute Neuts (auto) 4.6 Absolute Nucleated RBC 0.000 Nucleated RBC % 0.0 Sodium 135 L Potassium 3.8 Chloride 101 Carbon Dioxide 26 Anion Gap 8 BUN 19 Creatinine 1.41 H Estim Creat Clear Calc 54 Estimated GFR 49 L Glucose 110 Calcium 8.9 Total Bilirubin 2.0 H AST 27 ALT 20 Alkaline Phosphatase 74 Total Protein 7.4 Albumin 3.9 Quality VTE Prophylaxis VTE prophylaxis: pharmacologic ordered
[2025-04-23] MEDS: PRAVASTATIN SODIUM 20 MG TABLET 40 MG BY MOUTH (08:14)
[2025-04-23] MEDS: PYRIDOXINE HCL 50 MG TABLET 100 MG PO (08:14)
[2025-04-23] MEDS: OMEGA 3 POLYUNSAT FATTY ACIDS 1 GM CAP PO (08:14)
[2025-04-23] MEDS: THIAMINE HCL 100 MG TABLET PO (08:14)
[2025-04-23] MEDS: ASCORBIC ACID 500 MG TABLET PO (08:14)
[2025-04-23] MEDS: APIXABAN 5 MG TABLET PO ×2 (08:14→20:16)
[2025-04-23] MEDS: FLUTICASONE PROPIONATE 0.05% NA SPR 16 GM BTL (*BKC) 2 SPRAY NASAL ×2 (08:15→20:17)
[2025-04-23] MEDS: PANTOPRAZOLE 40 MG TABLET PO ×2 (08:15→20:16)
[2025-04-23] MEDS: CEFEPIME 2 GM in SODIUM CHLORIDE 0.9% IV 50 ML 100 ML IVPB ×2 (09:39→20:17)
[2025-04-23] MEDS: DONEPEZIL HCL 5 MG TABLET PO (20:16)
[2025-04-24 03:56] VITALS: BP 150/94; PULSE 89; RESP 20; TEMP 36.6; O2SAT 92
[2025-04-24 06:40] LABS: Hematocrit 38.4 % (42.0-52.0); Hemoglobin 13.0 g/dL (14.0-18.0); Immature Granulocyte Percent A 0.3 % (0-0.5); Lymphocytes Absolute Auto 1.84 K/mm3 (0.9-3.2); Mean Corpuscular HGB Conc 33.9 g/dl (32-36); Mean Corpuscular Hemoglobin 31.5 pg (26-34); Mean Corpuscular Volume 93.0 fl (80-100); Nucleated Red Blood Cells Absolute Auto 0.000 K/mm3 (0.0-0.012); Nucleated Red Blood Cells Perc 0.0 % (0.0-0.2); Platelet Count Result 182 k/mm3 (150-375); Red Blood Count 4.13 M/mm3 (4.6-6.20); White Blood Count 7.2 K/mm3 (4.5-10.0)
[2025-04-24] MEDS: DOXYCYCLINE IV 100 MG in SODIUM CHLORIDE 0.9% IV 100 ML IVPB (07:00)
[2025-04-24 07:06] LABS: Alanine Aminotransferase 19 U/L (6-50); Albumin Level 3.7 g/dL (3.5-5.1); Alkaline Phosphatase 71 U/L (38-126); Anion Gap 8 mmol/L (4-12); Aspartate Amino Transferase 25 U/L (17-59); Bilirubin,Total 1.5 mg/dL (0.2-1.3); Blood Urea Nitrogen 24 mg/dL (9-20); Calcium 9.0 mg/dL (8.4-10.2); Carbon Dioxide 25 mmol/L (22-30); Chloride 103 mmol/L (98-107); Estimated CRCL calculation 53 ml/min; Estimated Glomerular Filt Rate 48; Glucose 107 mg/dL (65-110); Potassium 3.6 mmol/L (3.4-5.0); Sodium 136 mmol/L (137-145); Total Protein 7.1 g/dL (6.3-8.2)
[2025-04-24] MEDS: CEFEPIME 2 GM in SODIUM CHLORIDE 0.9% IV 50 ML 100 ML IVPB (08:39)
[2025-04-24] MEDS: VALSARTAN 160 MG TABLET 320 MG PO (08:41)
[2025-04-24] MEDS: ASCORBIC ACID 500 MG TABLET PO (08:41)
[2025-04-24] MEDS: PANTOPRAZOLE 40 MG TABLET PO (08:41)
[2025-04-24] MEDS: THIAMINE HCL 100 MG TABLET PO (08:41)
[2025-04-24] MEDS: PRAVASTATIN SODIUM 20 MG TABLET 40 MG BY MOUTH (08:41)
[2025-04-24] MEDS: PYRIDOXINE HCL 50 MG TABLET 100 MG PO (08:41)
[2025-04-24] MEDS: OMEGA 3 POLYUNSAT FATTY ACIDS 1 GM CAP PO (08:44)
[2025-04-24] MEDS: APIXABAN 5 MG TABLET PO (08:44)
[2025-04-24 08:45] VITALS: PULSE 95
[2025-04-24] MEDS: FLUTICASONE PROPIONATE 0.05% NA SPR 16 GM BTL (*BKC) 2 SPRAY NASAL (08:45)
[2025-04-24] MEDS: METOPROLOL SUCCINATE EXT REL 25 MG TABCR PO (08:45)
[2025-04-24 08:51] VITALS: O2SAT 94
[2025-04-24 14:00] VITALS: BP 136/95; PULSE 97; RESP 22; TEMP 36.8; O2SAT 98
--- NOTE | 2025-04-24 14:58 | P.DS_ITS ---
DS: Admitting Diagnosis Discharge Date 04/24/2025 Admitting Diagnosis AMS/Pneumonia DS: Discharge Diagnosis Discharge Diagnosis (1) Altered mental status: Code(s): R41.82 - Altered mental status, unspecified Status: Acute (2) Multifocal pneumonia: Code(s): J18.8 - Other pneumonia, unspecified organism Status: Acute (3) Dehydration: Code(s): E86.0 - Dehydration Status: Acute (4) Atrial fibrillation: Code(s): I48.91 - Unspecified atrial fibrillation Status: Acute (5) Hypertension: Code(s): I10 - Essential (primary) hypertension Status: Acute (6) Elevated bilirubin: Code(s): R17 - Unspecified jaundice Status: Acute DS: Summary Hospital Course Reason for hospitalization: AMS/Pneumonia Hospital Course: Admission: Patient was a 74-year-old male with PMH memory impairment, GERD, BPPV, mixed hyperlipidemia, AFib, CKD on [facility] on 04/21/2025 with altered mental status. Patient's daughter has been out of town, she edgar cked on him called EMS when she found to be confused. He is A&O x2 in she reports he is usually A&O times 3-4. However, patient has had memory impairment in the past, recent previous admission with altered mental status, CT head showing small-vessel ischemic disease. Patient is a poor historian, comprehends review of systems is negative. He is able to tell me where he is but not the year. In the ED: CT head without acute findings. Chest x-ray demonstrating small bibasilar infiltrates. Blood cultures obtained. He was given ceftriaxone, and then cefepime and vancomycin. Saturating 94% on room air. WBC 67182, serum creatinine 1.45, glucose 111. Urinalysis not indicative of infection, trace leukocyte esterase. Drug urine screen negative. Hospital course: Patient was admitted and treated for altered mental status likely secondary to metabolic acidosis from infectious process of pneumonia. On evaluation chest x- ray was showing early bilateral pneumonia initially started on IV vancomycin IV cefepime and IV doxycycline however MRSA was negative and vancomycin was discontinued. Patient's daughter did report he has intermittent confusion at home but appeared more confused which is why she brought him to the emergency department. CT head did show some small vessel ischemic disease but no acute findings. Patient with also some dehydration which improved with IV fluids. Patient's T bili alk-phos were mildly elevated improved patient with recent cholecystostomy on which to me had been discharged home with p ercutaneous cholecystectomy catheter. During this admission patient had no complaints of abdominal pain and was tolerating oral intake he continued to improve after administration of IV antibiotic therapy. Patient with no complaints shortness of or chest pain remained on room air and normal WBC. Patient seen assessed at time of discharge alert and oriented times 2-3 appears to be patient's baseline does have history of dementia and was continued on his donepezil at discharge. Patient had been evaluated by PT OT and was ambulatory with walker at baseline patient was discharged home. Status at Discharge Functional status at discharge: uses cane/walker Overall status at discharge: patient is back to baseline Time Spent with Patient Time attestation: Total time spent providing and/or coordinating discharge services: Time spent: Greater than 30 minutes Exam Const: General: comfortable and no acute distress Other: A&O x2 HENMT: Mouth: Yes dry mucous membranes Eyes: Pupils: Equal, round and reactive pupils present Neck: Neck: supple Resp: Effort & Inspection: normal respiratory effort Auscultation: clear to auscultation bilaterally Cardio: Rate: regular rate Rhythm: regular rhythm Heart sounds: no murmurs GI: Inspection: non-distended Auscultation: normal bowel sounds : General: Yes bladder normal to palpation Skin: General skin exam: normal color and no rashes or lesions noted Neuro: Cranial nerves: Yes Equal, round and reactive pupils present Motor exam (neuro): 5/5 motor strength present throughout Other: Poor participation with exam, alert and oriented x 1-[address]. Unable to tell me month, year or who the president is. Patient does not know why he is at the hospital. Extrem: General: no edema Psych: Affect: normal affect DS: Data Data Completed and Pending Labs on day of discharge: Labs from last 24 hours 04/24/25 04/23/25 06:09 20:24 WBC 7.2 RBC 4.13 L Hgb 13.0 L Hct 38.4 L MCV 93.0 MCH 31.5 MCHC 33.9 RDW 13.4 Plt Count 182 MPV 9.7 Immature Gran % (Auto) 0.3 Neut % (Auto) 60.0 Lymph % (Auto) 25.4 [place] % (Auto) 11.7 H Eos % (Auto) 2.2 Baso % (Auto) 0.4 Lymph # (Auto) 1.84 [place] # (Auto) 0.9 H Eos # (Auto) 0.2 Baso # (Auto) 0.0 Abs Immat Gran (auto) 0.02 Absolute Neuts (auto) 4.3 Absolute Nucleated RBC 0.000 Nucleated RBC % 0.0 Sodium 136 L Potassium 3.6 Chloride 103 Carbon Dioxide 25 Anion Gap 8 BUN 24 H Creatinine 1.44 H Estim Creat Clear Calc 53 Estimated GFR 48 L Glucose 107 Calcium 9.0 Total Bilirubin 1.5 H AST 25 ALT 19 Alkaline Phosphatase 71 Total Protein 7.1 Albumin 3.7 Vancomycin Trough < 5.0 L Imaging Radiologist's impression: Radiology Results: ITS Impressions Head CT 04/21/25 17:58 Impression: 1.No acute intracranial abnormality. Chest X-Ray 04/21/25 17:59 Impression: Early bilateral pneumonia Discharge Plan Discharge Attending physician on discharge: Myron Rowland Consulting providers: Desi Bertrand Discharging Clinician: Desi Bertrand Anticipated Discharge Date/Time: 04/24/25 14:50 Patient Disposition: Home Activity: may shower Diet: as tolerated and heart healthy Discharge Instructions: 1). Pneumonia * I have prescribed oral antibiotic for our pneumonia please take as indicated and complete even if feeling better * Intake acetaminophen mild pain and fevers How can you care for yourself at home? ? Keep track of any new symptoms or changes in your symptoms. ? Rest until you feel better. ? Be safe with medicines. Take your medicines exactly as prescribed. Call your doctor if you think you are having a problem with your medicine. ? Do not drive after taking a prescription pain medicine. ? Ensure to follow-up with primary care physician as indicated and provide updated medication list provided to you at discharge. When should you call for help? Call 911 anytime you think you may need emergency care. For example, call if: ? You passed out (lost consciousness). Call your doctor now or seek immediate medical care if: ? You have new symptoms like fever, difficulty breathing, Chest pain, vomiting, or rash. ? You have new or different pain. ? You are confused and are having trouble thinking clearly. ? Your symptoms are getting worse. Watch closely for changes in your health, and be sure to contact your doctor if: ? You do not get better as expected. Patient Instructions: Antibiotic Form, Apixaban (By mouth), Community Acquired Pneumonia (DC) Patient Language: Czech Stand Alone Forms: General Discharge Information Follow-up/Referrals: Anshul Mason MD [Primary Care Provider, Internal Medicine] - 2 Weeks Discharge Medications: New doxycycline hyclate 100 mg capsule 100 mg PO DAILY Qty: 5 0RF amoxicillin-pot clavulanate 875-125 mg tablet 1 tablet PO Q12H Qty: 5 0RF Continued pyridoxine (vitamin B6) 100 mg tablet 100 mg PO DAILY omega-3 fatty acids-fish oil [Fish Oil] 360-1,200 mg capsule 1 cap PO DAILY fluticasone propionate [Flonase Allergy Relief] 50 mcg/actuation spray,suspension 2 spray intranasal BID Qty: 16 12RF Rx Instructions: administer into each nostril. Aim back/up/out Eliquis 5 mg Tablet 5 mg PO Q12HR Qty: 60 1RF valsartan 320 mg tablet 320 mg PO DAILY thiamine HCl (vitamin B1) 100 mg capsule 100 mg PO DAILY ascorbic acid (vitamin C) 500 mg capsule 500 mg PO DAILY zolpidem 10 mg tablet 10 mg PO QHS Qty: 30 0RF donepezil 5 mg tablet 5 mg PO QHS Qty: 90 1RF omeprazole 40 mg capsule,delayed release(DR/EC) See Rx Instructions .ROUTE .COMPLEX Qty: 180 1RF Dose Instruction: TAKE 1 CAPSULE BY MOUTH TWICE DAILY Rx Instructions: TAKE 1 CAPSULE BY MOUTH TWICE DAILY pravastatin 40 mg tablet See Rx Instructions .ROUTE .COMPLEX Qty: 90 1RF Dose Instruction: TAKE 1 TABLET BY MOUTH DAILY Rx Instructions: TAKE 1 TABLET BY MOUTH DAILY No Action metoprolol succinate [Toprol XL] 25 mg tablet extended release 24 hr 25 mg PO QAM Qty: 90 1RF Date of admission: 04/21/25 19:42 Primary Care Provider: Anshul Mason Admitting Provider: Sirisha Wu Attending physician on admission: Sirisha Wu Condition: Stable Quality VTE Prophylaxis VTE prophylaxis: pharmacologic ordered -Patient's previous records reviewed on admission -ER notes reviewed in detail on admission -discussed all findings and current treatment plan with patient/Family/POA -Consultations reviewed for recommendations -Patient's disposition for safe discharge discussed with hospice case manager -radiology imaging, EKG and test results I have personally reviewed and interpreted unless otherwise specified Dictation performed by [employer] direct speech recognition software, therefore dowel pointer variants and typographical errors may occur. Hospitalist MIPS Heart Failure (Exclusion) Patient has history of Heart Transplant or Left Ventricular Assistive Device?: No IF YES, STOP HERE Heart Failure (Qualifier) Patient has current or prior documentation of LVEF less than or equal to 40%, or mod/servere depressed LVSF?: No IF NO, STOP HERE
== END 2025-04-24 18:37 | disposition home or self-care (01) | DRG 193 ==
LOC: ANHED 19:47 → ANH3MEDSUR 19:52
PROVIDERS: Nurse Practitioner Adult Health; Admitting Provider General Practice; Emergency Provider Student in an Organized Health Care Education/Training Program; PCP Internal Medicine; Visit Provider Nurse Practitioner Family
DX: J18.9 Pneumonia, unspecified organism (principal); G93.41 Metabolic encephalopathy; E86.0 Dehydration; F03.90 Unspecified dementia, unspecified severity, without behavioral disturbance, psychotic disturbance, mood disturbance, and anxiety; N18.9 Chronic kidney disease, unspecified; I12.9 Hypertensive chronic kidney disease with stage 1 through stage 4 chronic kidney disease, or unspecified chronic kidney disease; E78.2 Mixed hyperlipidemia; I48.91 Unspecified atrial fibrillation; R73.03 Prediabetes; E55.9 Vitamin D deficiency, unspecified; K21.9 Gastro-esophageal reflux disease without esophagitis; L40.9 Psoriasis, unspecified; G47.00 Insomnia, unspecified; H91.90 Unspecified hearing loss, unspecified ear; N52.9 Male erectile dysfunction, unspecified; F10.90 Alcohol use, unspecified, uncomplicated; Z79.01 Long term (current) use of anticoagulants; Z79.51 Long term (current) use of inhaled steroids; Z87.19 Personal history of other diseases of the digestive system; Z79.2 Long term (current) use of antibiotics
CPT/HCPCS: 36415; 70450; 71045; 80048; 80053; 80202; 80307; 81001; 82550; 83605; 83735; 84145; 84484; 85025; 87040; 87641; 93005; 96365; 97110; 97161; 97165; 97530; 99285; A9270; J0692; J0696; J3373; J7120